=== PATIENT | female | born 2000 | race Caucasian/White ===

== ENCOUNTER 2021-09-27 08:29 | Emergency (ER) | payer OTHER ==
--- OUTSIDE RECORDS SUMMARY | 2021-09-27 08:33 | XMS REPORT | Continuity of Care Document ---
:2000 Author Organization [facility] t Address [address] [place] [address] Care Team Providers Name Role Phone MARIAM Attending Clinician Unavailable HAYDEN Attending Clinician Unavailable JONATAN RIVERA Attending Clinician Unavailable SAVANNA Attending Clinician Unavailable PEDIATRIC Attending Clinician Unavailable Payers Payer Name Policy Type Policy Number Effective Date Expiration Date S ource Problems Condition Condition Condition Status Onset Resolution Last Treating Co mments Source Name Details Category Date Date Treatment Clinician Date Chronic Chronic Problem Active Univers abdominal abdominal HL7.CCDAR2 ity of pain pain [place] [facility] ans Chronic Chronic Problem Active Univers constipati constipati HL7.CCDAR2 ity of on on [place] [facility] Abdominal Abdominal Problem Active Uni vers pain pain HL7.CCDAR2 ity of [place] [facility] ans Nausea Nausea Problem Active Univers and/or and/or HL7.CCDAR2 ity of vomiting vomiting [place] [facility] Renal Renal Problem Active Univers cyst, left cyst, left HL7.CCDAR2 ity of [place] [facility] ans Recurrent Recurrent Problem Active Uni vers UTI UTI HL7.CCDAR2 ity of [place] [facility] Small Small Problem Active Univers intestinal intestinal HL7.CCDAR2 [place] bacterial bacterial [place] overgrowth overgrowth Ph ysici ans Abdominal Abdominal Problem Active Uni vers bloating bloating HL7.CCDAR2 it y of [place] [facility] ans Diarrhea Diarrhea Problem Active Unive rs HL7.CCDAR2 ity of [place] [facility] ans Vomiting Vomiting Problem Active Unive rs blood blood HL7.CCDAR2 ity of [place] [facility] ans History of History of Problem Resolve Univers headache headache HL7.CCDAR2 d it y of [place] [facility] ans History of History of Problem Resolve Univers History of History of HL7.CCDAR2 d [place] placement [place] of ear of ear Physici tubes tubes ans Knee pain Knee pain Problem Active Uni vers HL7.CCDAR2 ity of [place] [facility] ans Headache Headache Problem Active Unive rs HL7.CCDAR2 ity of [place] [facility] ans Abnormal Abnormal Problem Active Unive rs weight weight HL7.CCDAR2 ity of loss loss [place] [facility] ans Constipati Constipati Problem Active U nivers on on HL7.CCDAR2 ity of [place] [facility] ans Dysphagia Dysphagia Problem Active Uni vers HL7.CCDAR2 ity of [place] [facility] ans Vomiting Vomiting Problem Active Unive rs HL7.CCDAR2 ity of [place] [facility] ans Allergies, Adverse Reactions, Alerts Allergy Allergy Status Severity Reaction(s) Onset Inactive Treating Comm ents Source Name Type Date Date Clinician Penicill DA Active MO 2017-11 [facility] ins 1-19 Clear 00:00: Morse 00 [facility] Cephalos DA Active MO 2017-11 [facility] porins -19 Clear 00:00: Morse 00 [facility] Sulfa DA Active MO 2017- [facility] (Sulfona -19 Clear mide 00:00: Morse Antibiot 00 [facility] Cephalos drug Active Univers porins allergy ity of [place] [facility] ans Penicill drug Active Univers ins allergy [facility] [place] [facility] sulfa drug Active Univers allergy [facility] of [place] [facility] Sulfa drug Active Univers Drugs allergy ity of [place] [facility] ans Family History Family Member Diagnosis Comments Start Date Stop Date Source Unknown Family FH: cholecystectomy Maternal U niversity of Member Relatives [place] [facility] Unknown Family FH: HTN Family History Univer sity of Member (hypertension) [place] [facility] Unknown Family Family history of Family History University of Member Elevated cholesterol [place] [facility] [place] Family Family history of Family History University of Member obesity [place] [facility] Unknown Family FH: migraines Family History Uni versity of Member [place] [facility] Unknown Family Family history of Family History University of Member mental disorder [place] [facility] Unknown Family Family history of Family History University of Member diabetes mellitus [place] [facility] Grandmother Family history of Univer sity of irritable bowel [place] syndrome Physicians aunt Family history of Univers ity of irritable bowel [place] syndrome Physicians Mother FH: cholecystectomy Unive rsity of [place] [facility] Sister Family history of GI Univ ersity of symptoms [place] [facility] Social History Smoking Status Start Date Stop Date Source Never smoker [facility] emeterio Physicians Medications Ordered Filled Start Stop Current Ordering Indication Dosage Frequency Signature Comments Components Source Medication Medication Date Date Medication? Clinician (SIG) Name Name Dicyclomine Dicyclomine Yes BLAIR BECERRA Q6H TAKE 1 Univers HCl - 20 MG HCl - 20 MG 1-30 MD TABLET ity of Oral Tablet Oral Tablet 00:00: EVERY 6 [place] 00 HOURS Physici NEEDED. ans Scopolamine Scopolamine Yes CRISTONIEL APPLY 1 Univers 1 MG/3DAYS 1 MG/3DAYS 1-30 ABRENICA PATCH ity of Transdermal Transdermal 00:00: M.D. EVERY 3 [place] Patch 72 Patch 72 00 DAYS Physici Hour Hour ans Polyethylen Polyethylen 2016-11 Yes CANDY QD MIX 1 Univers e Glycol e Glycol 2-12 HAYDEN CAPFUL ity of 3350 Oral 3350 Oral 00:00: M.D. (17GM) IN [place] Powder Powder 00 8 [place] Physici OF WATER, ans JUICE, OR TEA AND DRINK DAILY. Ondansetron Ondansetron 2016-11 Yes BLAIR BECERRA Allow 1 Univers 8 MG Oral 8 MG Oral 2-12 MD tablet to ity of Tablet Tablet 00:00: dissolve [place] Disintegrat Disintegrat 00 in mouth Physici ing ing q12 hours ans prn nausea/ vomiting. Pantoprazol Pantoprazol 2016-11 Yes BLAIR BECERRA 1 QD Take 1 Univers e Sodium 40 e Sodium 40 2-12 MD tablet po ity of MG Oral MG Oral 00:00: twice [place] Tablet Tablet 00 daily Physici Delayed Delayed ans Release Release Vital Signs Vital Name Observation Time Observation Value Comments Source BP Systolic 2018-07-31 114 mm[Hg] University 13:27:00 [place] [facility] s BP Diastolic 2018-07-31 79 mm[Hg] [facility] 13:27:00 [place] [facility] Height 2018-07-31 161.5 cm [facility] 13:27:00 [place] [facility] s Weight 2018-07-31 95.4 kg University 13:27:00 [place] [facility] Body Mass Index 2018-07-31 36.58 kg/m2 University o f Calculated 13:27:00 [place] [facility] s Temperature 2018-07-31 97.1 [degF] University 13:27:00 [place] [facility] Heart Rate 2018-07-31 67 /min University of ::00 [place] [facility] s BP Systolic 2018-03-15 115 mm[Hg] Location: [facility]; [facility] :: Position: [place] [facility] Sitting BP Diastolic 2018-03-15 78 mm[Hg] Location: [facility]; [facility] :: Position: [place] [facility] s Sitting Height 2018-03-15 164.8 cm University of :: [place] [facility] s Weight 2018-03-15 91.2 kg University of :: [place] [facility] s Body Mass Index 2018-03-15 33.58 kg/m2 University o f Calculated ::00 [place] [facility] s Temperature 2018-03-15 97.8 [degF] Method: [facility] :: Tympanic [place] [facility] s Heart Rate 2018-03-15 71 /min [facility] :: [place] [facility] s BP Systolic 2017-12-19 116 mm[Hg] Location: [facility]; [facility] :: Position: [place] [facility] s Sitting BP Diastolic 2017-12-19 77 mm[Hg] Location: [facility]; [facility] :: Position: [place] [facility] s Sitting Height 2017-12-19 64.09 [in_us] University of 11::00 [place] [facility] Weight 2017-12-19 191.80 [lb_av] University of :: [place] [facility] Body Mass Index 2017-12-19 32.83 kg/m2 University o f Calculated 11:15:00 [place] [facility] Heart Rate 2017-12-19 78 /min University of :: [place] [facility] BP Systolic 2017-12-12 109 mm[Hg] Location: [facility]; [facility] :: Position: [place] [facility] s Sitting BP Diastolic 2017-12-12 78 mm[Hg] Location: [facility]; [facility] :: Position: [place] [facility] s Sitting Height 2017-12-12 164 cm University of :: [place] [facility] s Weight 2017-12-12 86.4 kg University of :33: [place] [facility] Body Mass Index 2017-12-12 32.12 kg/m2 University o f Calculated :33:00 [place] [facility] Heart Rate 2017-12-12 76 /min [facility] :33: [place] [facility] Temperature 2017-12-12 98.1 [degF] Method: [place] [address]:33:00 Tympanic [place] [facility] Procedures Procedure Date / Time Performing Clinician Source Performed [QLH] CLOSTRIDIUM 2018-07-31 00:00:00 [facility] DIFFICILE TOXIN A AND B, Physici ans EIA [QLH] CULTURE, STOOL 2018-07-31 00:00:00 [facility] (CAMPYLOBACTER, Physicians SALMONELLA/SHIGELLA) [QLH] CRYPTOSPORIDIUM AG, 2018-07-31 00:00:00 [facility] [place] [facility] Physicians [QLH] OVA AND PARASITES, 2018-07-31 00:00:00 Uni versity of [place] STOOL CONC/PERM SMEAR, 3 Physici ans SPEC US Abdomen complete with 2018-07-31 00:00:00 [facility] [place] [address] Physicians [QL] CALPROTECTIN, STOOL 2018-03-15 00:00:00 [facility] [QLH] OVA AND PARASITES, 2018-03-15 00:00:00 Uni versity of [place] STOOL CONC/PERM SMEAR, 3 Physici ans SPEC MRI Brain w/wo contrast 2018-03-15 00:00:00 [facility] [address] Physicians [QL] CALPROTECTIN, STOOL 2017-12-12 00:00:00 [facility] [QLH] OVA AND PARASITES, 2017-12-12 00:00:00 Uni versity of [place] STOOL CONC/PERM SMEAR, 3 Physici ans SPEC MRI Brain w/wo contrast 2017-11-14 00:00:00 [facility] [address] Physicians ECG-12 Lead 2017-10-24 00:00:00 [facility] Physicians [QLH] OVA AND PARASITES, 2017-10-24 00:00:00 Uni versity of [place] STOOL CONC/PERM SMEAR, 3 Physici ans SPEC [QL] CALPROTECTIN, STOOL 2017-10-24 00:00:00 [facility] [place] Physicians Renal [id number] 2017-10-24 00:00:00 University o f [place] Physicians History of Ear pressure [facility] equalization tube Physicians insertion Encounters Start End Encounter Admission Attending Care Care Encounter Source Date/Time Date/Time Type Type Clinicians Facility Department ID 2021-05-17 2021-05-17 Emergency E [facility]SE [facility] [id number] MH 21:39:00 21[facility]39[facility] [facility] 2021-05-13 2021-05-13 Emergency E MHSE [facility]SE [id number] MH 08:18:00 08:18:[address] [facility] [address] [facility] 2021-02-02 2021-02-02 Emergency E MHSE [facility]SE [id number] 12:07:00 12:07:[address] [facility] 2018-07-31 2018-07-31 Appointmen BLAIR BECERRA UTP Pedi [id number] Univers 01:00:00 01:00:00 t; MD MARIAM Gastroenter i ty of MD BLAIR [facility] Physici ans 2018-06-28 2018-06-28 Appointmen THOM BLAKE [id number] Univers 13:20:00 13:20:00 t; AUGUSTIN BLAKE M.D. ity of [place], [place] M.D. Physici ans 2018-05-15 2018-05-15 Appointmen JONATAN [facility] [id number] Univers 09:40:00 09:40:00 t; daniel [place] MELISSA, [place] MELISSA, M.D. Physici M.D. ans 2018-03-15 2018-03-15 Appointmen JONATAN Murryi [id number] Univers 09:40:00 09:40:00 t; JONATAN RIVERA Gastroenter i ty of TIMOTHY RIVERA olJewel Moore M.D. ans 2018-02-28 2018-02-28 Appointmen THOM CORRALES [facility] [id number] Univers 10:30:00 10:30:00 t; SHERRY CORRALES ity of [place], M.D. [place] M.D. Physici ans 2017-12-19 2017-12-19 Appointmen PEDIATRIC, [facility] Pedi [id number] Univers 10:30:00 10:30:00 t; FELLOW Nephrology daniel of PEDIATRIC, & [place] FELLOW Hypertensio Phys ici n ans 2017-12-12 2017-12-12 Appointmen [facility] THOM Pedi [id number] Univers 09:40:00 09:40:00 t; JONATAN RIVERA Gastroenter i ty of ARSDATIMOTHY LIVE ology [place] Jewel AGUIRRE M.D. ans 2017-10-24 2017-10-24 Andreina SCHILLING [id number] Univers 10:00:00 10:00:00 t; daniel [place] MELISSA [place] Jewel AGUIRRE M.D. ans Results Test Description Test Time Test Comments Results Result Comments Source SURGICAL SPECIMENS 2018-10-09 09:12:00 RUN DATE: 10/09/18 [facility] *LIVE* PAGE 1 RUN TIME: 911 Specimen Inquiry RUN USER: INTERFACE PATIENT: KAYY ORELLANA LOC: EULOGIO U #: [id number] AGE/SX: 18/F ROOM: RE10/02/18REG DR: Fede Lieberman MD : 00 BED: DIS: STATUS: DEP [facility] TLOC: SPEC #: [id number] RECD: 10/02/18 STATUS: NOEMY ART #: [id number] EVELIO: 10/02/[address] [facility] [address]: Fede Lieberman MD ENTERED: 10/06/18 SP TYPE: SURG SPEC OTHR DR: Osmar Portillo DO ORDERED: GM LEVEL 4 CODES: [id number] - STOMACH, NOS [id number] - SMALL INTESTINE [place]: [place] [address] [place] [address] [email or web address] Fede Lieberman MD [address] [place], [place] [address] [address] [place] [address] PROCEDURES: GM LEVEL 4 (Incomplete) TISSUES: 1. SMALL INTESTINE, NOS - Small intestine, duodenum, bx. 2. STOMACH, NOS - Stomach, antrum ,bx. FINAL DIAGNOSIS Small intestine, duodenum, bx.: Intact villous architecture, no evidence of celiac sprue. Stomach, antrum, bx.: Mild chronic gastritis, no Helicobacter organisms identified. GROSS AND MICROSCOPIC GROSS EXAMINATION: Received in formalin labeled duodenum biopsy are 3 friedman tissue fragments measuring up to 0.3 cm submitted in one cassette (A). Received in formalin labeled antrum biopsy are 3 friedman tissue fragments measuring up to 0.3 cm (B). MICROSCOPIC EXAMINATION: Sections of the duodenum reveal intact villous architecture. The lamina propria contains a mild chronic inflammatory infiltrate. Sections of the gastric biopsy show changes of mild chronic gastritis. The CONTINUED ON NEXT PAGE RUN DATE: 10/09/18 [facility] *LIVE* PAGE 2 RUN TIME: 911 Specimen Inquiry RUN USER: INTERFACE SPEC #: [id number] PATIENT: KAYY ORELLANA #[id number] (Continued)--------- --- GROSS AND MICROSCOPIC (Continued) lamina propria contains a mild inflammatory infiltrate. The Alcian blue/PAS stain does not show goblet cell metaplasia. The immunostain for Helicobacter organisms is negative. (When special stains have been reviewed, the appropriate positive/negative controls have been reviewed and are appropriately positive/negative). POST-OP DIAGNOSIS EGD-hiatal hernia PRE-OP DIAGNOSIS Blood in stool, GERD Signed SIGNATURE ON FILE Dom Cloes DO 10/09/1812 END OF REPORT [[facility]] CBC (INCLUDES DIFF/PLT) 2018-07-31 15:19:01 Test Item Value Reference Range Interpretation Comme nts WBC (test code = 6690-2) 9.2 {K/CMM} 3.7-10.4 RBC (test code = 789-8) 4.77 {M/CMM} 4.20-5.40 Hgb (test code = 718-7) 14.2 g/dl 12.0-16.0 Hct (test code = 15323-9) 42.3 % 36.0-48.0 MCV (test code = 787-2) 88.6 fL 80.0-98.0 MCH (test code = 785-6) 29.7 pg 27.0-31.0 MCHC (test code = 786-4) 33.5 g/dl 32.0-36.0 RDW (test code = 788-0) 13.3 % 11.5-14.5 Platelet (test code = 79478-3) 233 {K/CMM} 133-450 Mean Platelet Volume (test code = 13490-8) 9.7 fL 7.4-10.4 [facility] Physicians[[facility]] CMP [id number] 15:19:01 Test Item Value Reference Range Interpretation Comments Sodium Level 139 {mEq/l} 135-145 (test code = 2951-2) Potassium Level 4.0 {mEq/l} 3.5-5.1 (test code = 2823-3) Chloride Level 109 {mEq/l} 95-109 (test code = 2075-0) Carbon Dioxide; 19 {mEq/l} 24-32 Below Low Threshold (test code = 8-9) AGAP (test code = 15.0 {mEq/l} 10.0-20.0 23063-8) Glucose Lvl (test 84 mg/dl 70-99 Adult refe rence range code = 2345-7) values reflec t the clinical guidel inesof the [place] Diabet es Association. Creatinine Lvl 0.60 mg/dl 0.50-1.40 (test code = 2160-0) Blood Urea 10 mg/dl 7-22 Nitrogen (test code = 3094-0) BUN/Creatinine 17 6-25 Ratio (test code = 3097-3) Total Protein; 8.5 g/dl 6.4-8.4 Above High Threshold (test code = 2885-2) Albumin Lvl (test 3.9 g/dl 3.5-5.0 code = 1751-7) Globulin; Above 4.6 g/dl 2.7-4.2 High Threshold (test code = 53456-6) A/G Ratio (test 0.8 0.7-1.6 code = 1759-0) Calcium Level 9.3 mg/dl 8.5-10.5 Total (test code = 03222-0) ALT; Above High 70 u/l 0-65 Threshold (test code = 1743-4) AST (test code = 28 u/l 0-37 73240-5) Alk Phos; Above 145 u/l 39-136 High Threshold (test code = 1783-0) Bili Total (test 0.8 mg/dl 0.2-1.3 code = 1974-) eGFR (test code = 134 The eGFR i s calculated 05028-4) {ML/MIN/1.7} using the CKD-E PI formula. In mos t young, healthyindividu als the eGFR will be >9 0 mL/min/1.73m2. The eGFR declines with a ge. AneGFR of 60-89 may be normal in some population s, particularly th e elderly, forwhom the CKD -EPI formula has not been extensively vikas idated. Use of the eGFR isnot recommended in the following populations:Ind ividuals with unstable c reatinine concentrations, including patient s and those with seri ous co-morbid conditions.Maggie ents with extremes in mus kari mass or diet.The brigido a above are obtained fr om the National Kidney Disease Education Progr am(NKDEP) which lena andersen recommends that when the eGFR is used in patientswith ex tremes of body mass index for purposes of sepideh g dosing, the eGFR should be multiplied by t he estimated BMI. [facility]] [id number] 15:19:01 Test Item Value Reference Range Interpretation Comments Segmented Neutrophils (test code 63.3 % 45.0-75.0 = 69904-1) Monocytes (test code = 20701-4) 7.6 % 2.0-12.0 Lymphocytes (test code = 12687-5) 27.4 % 20.0-40.0 Eosinophils (test code = 69547-1) 1.2 % 0.0-4.0 Basophils (test code = 706-2) 0.5 % 0.0-1.0 Segs-Bands # (test code = 5.8 {K/CMM} 1.5-8.1 68250-3) Lymphocytes # (test code = 2.5 {K/CMM} 1.0-5.5 53874-8) Monocytes # (test code = 66538-0) 0.7 {K/CMM} 0.0-0.8 Eosinophils # (test code = 0.1 {K/CMM} 0.0-0.5 97498-0) [facility][O] Urine Dipstick (In Office)2017-12-19 11:53:00 Test Item Value Reference Range Interpretation Comments LEUKOCYTES (test code = LEUKOCYTES) neg N NITRITE; Normal (test code = 43687-3) neg N UROBILINOGEN; Normal (test code = 1.0 N 94384-5) PROTEIN; Normal (test code = 50792-4) neg N pH (test code = pH) 7.0 N URINE BLOOD; Normal (test code = neg N 99283-8) SPECIFIC GRAVITY; Normal (test code = 1.020 N 2965-2) KETONES; Normal (test code = 89875-6) neg N BILIRUBIN; Normal (test code = 96842-3) neg N GLUCOSE; Normal (test code = 1547-9) neg N [facility] PhysiciansTobacco Use [id number] 15:40:00 Test Item Value Reference Range Interpretation Comments Completed (test code = Completed) DONE [facility] Physicians
[2021-09-27 09:04] LABS: Urine Blood Negative (Negative); Urine Glucose Negative (Negative); Urine Protein Negative (Negative); Urine Specific Gravity 1.025 (1.005-1.030)
[2021-09-27 09:31] LABS: Absolute Lymphocytes (CBC) 2.1 K/uL (0.7-4.9); Basophils % 0.5 % (0-1.3); Hematocrit 39.6 % (36.0-45.0); Lymphocytes % 21.8 % (15.3-44.8); RBC Red Blood Cell Count 4.49 M/uL (3.86-4.86)
--- NOTE | 2021-09-27 09:38 | RAD REPORT ---
EXAM DESCRIPTION: US - Transvaginal OB - 09/27/2021 9:25 am CLINICAL HISTORY: ABD PAIN COMPARISON: No comparisons FINDINGS: Gestational sac identified measuring 10 millimeters. Yolk sac is also seen. No pole or heart tones identified. The right ovary has a volume of 8 cc. The left ovary is volume of 2. 6 cc. Right-sided corpus luteum is present. No free fluid. IMPRESSION: Gestational sac identified which measures 5 week 5 day with estimated date of delivery o f 05/25/2022. No pole or heart tones identified likely due to early dates. Bilateral ovarian bl ood flow.
[2021-09-27 10:11] LABS: BUN Blood Urea Nitrogen 8 mg/dL (7-18); Bicarbonate 24 mmol/L (21-32); Glucose Level 89 mg/dL (74-106); HCG, Quantitative 7575 mIU/mL (1-3); Sodium Level 138 mmol/L (136-145)
[2021-09-27 10:13] LABS: Potassium 3.9 mmol/L (3.5-5.1)
[2021-09-27 10:14] LABS: Urine Specific Gravity/Preg 1.025 (1.005-1.030)
--- NOTE | 2021-09-27 10:16 | ER ---
Nurse's Notes [facility] Name: Janneth Issa Age: 21 yrs Sex: Female : 2000 Arrival Date: 09/27/2021 Time: 08:30 Bed 5 Private MD: Diagnosis: Lower abdominal pain, unspecified Presentation: 09/27 08:39 Chief complaint: Patient states: i am having stomach pain that started yesterday. i tw2 started feeling lightheaded yesterday. and this morning i felt like i was going to pass out. i was more worried because i found out i was last week. Coronavirus screen: nausea, Client presents with at least one sign or symptom that may indicate coronavirus-19. Standard/surgical mask placed on the client. Provider contacted for isolation considerations. Ebola Screen: Patient denies travel to an Ebola-affected area in the 21 days before illness onset. Initial Sepsis Screen: Does the patient meet any 2 criteria? No. Patient's initial sepsis screen is negative. Does the patient have a suspected source of infection? No. Patient's initial sepsis screen is negative. Risk Assessment: Do you want to hurt yourself or someone else? Patient reports no desire to harm self or others. Onset of symptoms was September 27, 2021. 08:39 Method Of Arrival: Ambulatory tw2 08:39 Acuity: PIO 3 tw2 Triage Assessment: 08:42 General: Appears in no apparent distress. Behavior is calm, cooperative, appropriate tw2 for age. Pain: Complains of pain in right lower quadrant and left lower quadrant. GI: Reports nausea. 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 - Social history:: Smoking status: Patient denies any tobacco usage or history of. Screenin:01 Abuse screen: Denies threats or abuse. Nutritional screening: No deficits noted. as6 Tuberculosis screening: No symptoms or risk factors identified. Fall Risk None identified. Assessment: 08:59 General: Appears in no apparent distress. comfortable, Behavior is calm, cooperative. as6 Pain: Complains of pain in lower abdomen Quality of pain is described as aching. Neuro: Level of Consciousness is awake, alert, obeys commands, Oriented to person, place, time, situation, Reports dizziness, since yesterday 09/27. Cardiovascular: Capillary refill < 3 seconds Patient's skin is warm and dry. Respiratory: Airway is patent Respiratory effort is even, unlabored, Respiratory pattern is regular, symmetrical. GI: Reports lower abdominal pain. Derm: Skin is intact, is healthy with good turgor. 10:30 Reassessment: discharge teaching provided, pt stable at discharge, verbalized as6 understanding of need for follow up. Vital Signs: 08:39 BP 124 / 82; Pulse 93; Resp 18; Temp 98.3; Pulse Ox 99% on R/A; Weight 109.18 kg (R); tw2 Height 5 ft. 4 in. (162.56 cm); 10:29 BP 100 / 68; Pulse 68; Resp 18 S; Pulse Ox 100% on R/A; as6 08:39 Body Mass Index 41.32 (109.18 kg, 162.56 cm) tw2 ED Course: 08:30 Patient arrived in ED. as 08:38 Corky Baum PA is PHCP. jr8 08:38 Brant Delgadillo MD is Attending Physician. jr8 08:41 Nathan Martínez, POPPY is Primary Nurse. as6 08:41 Triage completed. tw2 08:42 Arm band placed on. tw2 09:01 Patient has correct armband on for positive identification. Bed in low position. Call as6 light in reach. Side rails up X 1. Adult w/ patient. Pulse ox on. NIBP on. Warm blanket given. 09:19 Inserted saline lock: 20 gauge in right hand, using aseptic technique. Blood collected. as6 09:26 US Transvaginal Ob In Process Unspecified. EDMS 10:32 No provider procedures requiring assistance completed. IV discontinued, intact, as6 bleeding controlled, No redness/swelling at site. Pressure dressing applied. Administered Medications: No medications were administered Outcome: 10:15 Discharge ordered by . jr8 10:32 Discharged to home ambulatory, with significant other. as6 10:32 Condition: stable 10:32 Discharge instructions given to patient, significant other, Instructed on discharge instructions, follow up and referral plans. Demonstrated understanding of instructions, follow-up care. 10:33 Patient left the ED. as6 Signatures: Dispatcher [employer] Jud Tirado Josh, PA PA jr8 Ashley Santos RN RN tw2 Nathan Martínez RN RN as6 Corrections: (The following items were deleted from the chart) 08:42 08:41 Home Meds: None; tw2 tw2
--- NOTE | 2021-09-27 10:16 | EDPHYS ---
Physician Documentation [facility] Name: Janneth Issa Age: 21 yrs Sex: Female : 2000 Arrival Date: 09/27/2021 Time: 08:30 Bed 5 Private MD: ED Physician Brant Delgadillo HPI: 09/27 09:07 This 21 yrs old Female presents to ER via Ambulatory with complaints of jr8 Abdominal Pain - 5 wks preg, Dizziness. 09:07 Severity of pain: At its worst the pain was mild in the emergency department the pain jr8 is unchanged. The patient has not experienced similar symptoms in the past. The patient has not recently seen a physician. This is a 21-year-old female A0 L0 that presented to the emergency room with discomfort to the lower abdomen that started last night but intensified this morning. Denies any spotting or bleeding at this time. Denies any urinary symptoms at this time. Patient stated that her last menstrual period was around August 20. Took urinary test at home which showed positive. Patient has not had any previous ultrasound.. 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 - Social history:: Smoking status: Patient denies any tobacco usage or history of. ROS: 09:07 Constitutional: Negative for fever, chills, and weight loss, Cardiovascular: Negative jr8 for chest pain, palpitations, and edema, Respiratory: Negative for shortness of breath, cough, wheezing, and pleuritic chest pain. 09:07 Back: Negative for injury and pain, MS/Extremity: Negative for injury and deformity, Skin: Negative for injury, rash, and discoloration, Neuro: Negative for headache, weakness, numbness, tingling, and seizure. 09:07 Abdomen/GI: Positive for abdominal pain, nausea, Negative for vomiting, diarrhea. 09:07 : Positive for missed period. Exam: 09:07 Constitutional: This is a well developed, well nourished patient who is awake, alert, jr8 and in no acute distress. Cardiovascular: Regular rate and rhythm with a normal S1 and S2. No gallops, murmurs, or rubs. Normal PMI, no JVD. No pulse deficits. Respiratory: Lungs have equal breath sounds bilaterally, clear to auscultation and percussion. No rales, rhonchi or wheezes noted. No increased work of breathing, no retractions or nasal flaring. Back: No spinal tenderness. No costovertebral tenderness. Full range of motion. Skin: Warm, dry with normal turgor. Normal color with no rashes, no lesions, and no evidence of cellulitis. MS/ Extremity: Pulses equal, no cyanosis. Neurovascular intact. Full, normal range of motion. Neuro: Awake and alert, GCS 15, oriented to person, place, time, and situation. Cranial nerves II-XII grossly intact. Motor strength 5/5 in all extremities. Sensory grossly intact. 09:07 Abdomen/GI: Inspection: abdomen appears normal, Bowel sounds: active, all quadrants, Palpation: soft, in all quadrants, mild abdominal tenderness, in the right lower quadrant and left lower quadrant, mass, is not appreciated, rebound tenderness, is not appreciated, voluntary guarding, is not appreciated, involuntary guarding, is not appreciated, no appreciated organomegaly, Indicators: McBurney's point is not tender, Falk's sign is negative, Rovsing's sign is negative, Liver: tenderness, is not appreciated. Vital Signs: 08:39 BP 124 / 82; Pulse 93; Resp 18; Temp 98.3; Pulse Ox 99% on R/A; Weight 109.18 kg (R); tw2 Height 5 ft. 4 in. (162.56 cm); 10:29 BP 100 / 68; Pulse 68; Resp 18 S; Pulse Ox 100% on R/A; as6 08:39 Body Mass Index 41.32 (109.18 kg, 162.56 cm) tw2 MDM: 08:43 Patient medically screened. jr8 09:50 Data reviewed: vital signs, nurses notes, lab test result(s), radiologic studies, jr8 ultrasound. Data interpreted: Pulse oximetry: on room air is 99 %. Interpretation: normal. Counseling: I had a detailed discussion with the patient and/or guardian regarding: the historical points, exam findings, and any diagnostic results supporting the discharge/admit diagnosis, lab results, radiology results, the need for outpatient follow up, an OB/Gyne specialist, to return to the emergency department if symptoms worsen or persist or if there are any questions or concerns that arise at home. 09:50 Differential diagnosis: diverticulitis, Ectopic , non-specific abd pain, jr8 Ovarian Torsion, Pelvic Inflammatory Disease, Pyelonephritis, Tubal Ovarian Abcess, Ureterolithiasis, urinary tract infection, appendicitis, IUP, spontaneous . 10:22 ED course: Discussed with patient that her ultrasound and blood work were stable. jr8 Patient measures 5 weeks 5 days but with no pole. Most likely early gestation in nature. Cannot fully rule out if she were to be in the early stages of miscarry or not but that all things otherwise are stable and appropriate at this time. That she needs to follow-up in the next few days with her COLOR STRIPPER. If she were to start have spotting or bleeding to come back for reevaluation. Patient good with this at this time.. 09/27 08:51 Order name: Basic Metabolic Panel; Complete Time: 10:15 jr8 09/27 08:51 Order name: CBC with Diff; Complete Time: 09:36 jr8 09/27 08:51 Order name: Quantitative Hcg; Complete Time: 10:15 jr8 09/27 08:51 Order name: US Transvaginal Ob; Complete Time: 09:39 jr8 09/27 09:04 Order name: Urine Dipstick-Ancillary EDMI 09/27 09:08 Order name: Urine --Ancillary (enter results); Complete Time: 10:15 bd 09/27 08:51 Order name: IV Saline Lock; Complete Time: 09:19 jr8 09/27 08:51 Order name: Labs collected and sent; Complete Time: 09:19 jr8 09/27 08:51 Order name: NPO; Complete Time: 09:03 jr8 09/27 08:51 Order name: Urine Dipstick-Ancillary (obtain specimen); Complete Time: 09:03 jr8 09/27 08:51 Order name: Urine Test (obtain specimen); Complete Time: 09:03 jr8 Administered Medications: No medications were administered Disposition: 11:06 Co-signature as Attending Physician, Brant Delgadillo MD I agree with the assessment and rn plan of care. Attestation: The patient's history, exam findings, diagnostics, and a summary of any interventions or procedures was reviewed in detail with Corky CASTLE. Disposition Summary: 09/27/21 10:15 Discharge Ordered Location: Home jr Problem: new jr8 Symptoms: have improved jr8 Condition: Stable jr8 Diagnosis - Lower abdominal pain, unspecified jr8 Followup: jr8 - With: Private Physician - When: 2 - 3 days - Reason: Recheck today's complaints, Continuance of care, Re-evaluation by your physician Discharge Instructions: - Discharge Summary Sheet jr8 - Abdominal Pain During jr8 Forms: - Medication Reconciliation Form jr8 - Thank You Letter jr8 - Antibiotic Education jr8 - Prescription Opioid Use jr8 - Work release form as6 Signatures: Dispatcher [employer] EDMS Brant Delgadillo MD MD rn Roszak, Josh, PA PA jr8 Ashley Santos RN RN tw2 Corrections: (The following items were deleted from the chart) 08:42 08:41 Home Meds: None; tw2 tw2
== END 2021-09-27 10:33 | disposition home or self-care (01) ==
LOC: ER 08:29
DX: O26.891 Other specified pregnancy related conditions, first trimester (principal); Z3A.01 Less than 8 weeks gestation of pregnancy; Z88.0 Allergy status to penicillin; Z88.2 Allergy status to sulfonamides
CPT/HCPCS: 36415; 76817; 80048; 81003; 81025; 84702; 85025; 99284

== ENCOUNTER 2023-03-14 01:18 | Emergency (ER) | payer OTHER ==
--- OUTSIDE RECORDS SUMMARY | 2023-03-14 01:30 | XMS REPORT | Continuity of Care Document ---
:2000 Author Organization [facility] t Address [address] [facility] [place] [address] Care Team Providers Name Role Phone PCP, PATIENT DOES NOT HAVE A Primary Care Physician UnavailSTEF Land Attending Clinician Unavailable Vilma London MD Attending Clinician VILMA LONDON Attending Clinician Unavailable Kanu Jenkins Attending Clinician KANU JENKINS Attending Clinician Unavailable KANU JENKINS Attending Clinician Unavailable Amita Galvez Attending Clinician AMITA GALVEZ Attending Clinician Unavailable Vicente Roberts Attending Clinician VICENTE ROBERTS Attending Clinician Unavailable Deandre Robles Attending Clinician DEANDRE ROBLES Attending Clinician Unavailable Telma Lai Attending Clinician [phone] TELMA LAI Attending Clinician Unavailable Lolis West Attending Clinician LOLIS WEST Attending Clinician Unavailable [place] Attending Clinician SOUTH [place] Attending Clinician Unavailable Juan Vizcaino Attending Clinician JUAN VIZCAINO Attending Clinician Unavailable Knig Hope Attending Clinician Wanda Matias Attending Clinician Unavailable BLAIR BECERRA MD Attending Clinician Unavailable AUGUSTIN BLAKE M.D. Attending Clinician Unavailable WANDA MATIAS M.D. Attending Clinician Unavailable SHERRY GUNN M.D. Attending Clinician Unavailable PEDIATRIC, FELLOW Attending Clinician Unavailable Fahad Hood Attending Clinician Latonya Bennett Attending Clinician Catarino South Attending Clinician Freddie Arenas Attending Clinician [phone] Grace Sharp Attending Clinician STEF MUÑOZ Admitting Clinician Unavailable VILMA LONDON Admitting Clinician Unavailable Stef Muñoz Admitting Clinician Hilaria Gunn Admitting Clinician Payers Payer Name Policy Type Policy Number Effective Date Expiration Date [facility] [id number] 2017 00:00:00 2017 00: 00:00 Problems Condition Condition Condition Status Onset Resolution Last Treating Co mments Source Name Details Category Date Date Treatment Clinician Date CONTRACTIO CONTRACTI Diagnosis Active 2022-05-27 Memoria NS ONS Active 05-27 14:20:00 l 05/27/2022 00:00: Bartolome BLANDON [address] LOF/CTXS LOF/CTXS Diagnosis Active 2022-05-25 Memoria Active 05-25 12:56:00 l 05/25/2022 00:00: Bartolome paul [address] CRAMPING/B Diagnosis Active 2022-05-19 Memoria LURRED CRAMPING/B 05-19 18:25:00 l VISION LURRED 00:00: Willie VISION 00 Active 05/19/2022 [facility] CONTRACTIN CONTRACTI Diagnosis Active 2022-05-06 Memoria G NG Active 05-05 03:42:00 l 05/05/2022 00:00: Bartolome paul [address] CHILDBIRTH CHILDBIRT Diagnosis Active 2022-05-15 Memoria H Active 03-08 08:47:00 l 03/08/2022 23:25: Bartolome paul [address] / Diagnosis Active 2020-112021-10-28 Memoria NAUSEA / 12-29 13:31:00 l NAUSEA 00:00: Lorida Active 00 10/28/2021 [facility] Willie ABDOMINAL ABDOMINAL Diagnosis Active 2021-05-17 Memoria PAIN PAIN 05-17 21:45:00 l Active 00:00: Lorida 05/17/2021 00 [facility] [place] PUI PUI Diagnosis Active 2021-05-13 Mem oria Active 05-13 08:45:00 l 05/13/2021 00:00: Bartolome paul 00 [place] VOMITING VOMITING Diagnosis Active 2021-02-02 Memoria Active 02-02 13:30:00 l 02/02/2021 00:00: Bartolome paul 00 [place] ABD ABD Diagnosis Active 2017-112018-09-24 Mem oria PAIN/RECTA PAIN/RECTA 11-24 18:33:00 l L AND L AND 00:00: Lorida VAGINAL VAGINAL 00 BLEEDING BLEEDING Active 09/24/2018 [facility] R10.9 - R10.9 - Diagnosis Active 2016-112017-10-27 Memoria UNSPECIFIE UNSPECIFIE - 13:14:00 l D D 00:01: Lorida ABDOMINAL ABDOMINAL 00 PAIN PAIN Active 10/25/2017 [facility] HEADACHE HEADACHE Diagnosis Active 2015-02-18 Memoria Active 02-18 21:00:00 l 02/18/2015 00:00: Bartolome paul 00 [place] RT KNEE RT KNEE Diagnosis Active 2015-2014-12-08 Memoria DISLOCATIO DISLOCATIO 12-08 19:41:00 l N N Active 00:00: Willie 12/08/2014 00 [facility] Hemorrhage Hemorrhag Problem 2019-04-13 Memoria of anus e of anus 12:24:45 l and rectum and rectum He rmann 04/13/2019 [facility] Abnormal Abnormal Problem 2019-04-13 Memoria uterine uterine 12:24:45 l and and Lorida vaginal vaginal bleeding, bleeding, unspecifie unspecifie d d 04/13/2019 [facility] Fever, Fever, Problem 2019-04-13 Leonid indigo unspecifie unspecifie 12:24:45 l d d Lorida 04/13/2019 [facility] Headache Headache Problem 2019-04-13 Memoria 04/13/2019 12:24:45 l [facility] Generalize Generaliz Problem 2019-04-13 Memoria d ed 12:24:45 l abdominal abdominal Herm sina pain pain 04/13/2019 [facility] Dysuria Dysuria Problem 2019-04-13 Me moria 04/13/2019 12:24:45 l [facility] Hematuria, Hematuria Problem 2019-04-13 Memoria unspecifie , 12:24:45 l d unspecifie Bartolome n d 04/13/2019 [facility] Weakness Weakness Problem 2019-04-13 Memoria 04/13/2019 12:24:45 l [facility] Constipati Constipat Problem 2019-04-13 Memoria on, ion, 12:24:45 l unspecifie unspecifie He rmann d d 04/13/2019 [facility] Other Other Problem 2019-04-13 Memor ia fatigue fatigue 12:24:45 l 04/13/2019 Bartolome paul [facility] 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 2019-04-13 Memoria (current) (current) 12:24:45 l use of use of Lorida hormonal hormonal contracept contracept bertrand bertrand 04/13/2019 [facility] Cyst of Cyst of Problem 2019-02-20 Sd moria kidney, kidney, 14:09:15 l acquired acquired Bartolome n 02/20/2019 [facility] Chlamydial Chlamydia Problem Resolve 2022-06-01 Memoria infection l d 22:47:44 l (disorder) infection Her roberts (disorder) Resolved Problem 06/01/2022 [facility] Vomiting Vomiting Problem Active 2022-06-01 Memoria (disorder) (disorder) 22:47:44 l Active Lorida Problem 06/01/2022 [facility], [place],Jim Oh [facility] ACL SPRAIN ACL Diagnosis Active 2015-01-29 Memoria SPRAIN 08:15:00 l Active [facility] KNEE PAIN KNEE PAIN Diagnosis Active 2015-06-25 Memoria Active 17:12:00 l [facility] History of History of Problem Resolve [place] headache headache HL7.CCDAR2 d Ph ysici ans History of History of Problem Resolve [place] History of History of HL7.CCDAR2 d Physici placement placement ans of ear of ear tubes tubes Knee pain Knee pain Problem Active UT HL7.CCDAR2 Physic i ans Headache Headache Problem Active UT HL7.CCDAR2 Physic i ans Abnormal Abnormal Problem Active UT weight weight HL7.CCDAR2 Physic i loss loss ans Constipati Constipati Problem Active U T on on HL7.CCDAR2 Physic i ans Dysphagia Dysphagia Problem Active UT HL7.CCDAR2 Physic i ans Chronic Chronic Problem Active UT abdominal abdominal HL7.CCDAR2 Physici pain pain ans Chronic Chronic Problem Active UT constipati constipati HL7.CCDAR2 Physici on on ans Abdominal Abdominal Problem Active [place] pain pain HL7.CCDAR2 Physic i ans Nausea Nausea Problem Active UT and/or and/or HL7.CCDAR2 Physic i vomiting vomiting ans Renal Renal Problem Active UT cyst, left cyst, left HL7.CCDAR2 Physici ans Recurrent Recurrent Problem Active UT UTI UTI HL7.CCDAR2 Physic i ans Small Small Problem Active UT intestinal intestinal HL7.CCDAR2 Physici bacterial bacterial ans overgrowth overgrowth Abdominal Abdominal Problem Active UT bloating bloating HL7.CCDAR2 Ph ysici ans Diarrhea Diarrhea Problem Active UT HL7.CCDAR2 Physic i ans Vomiting Vomiting Problem Active UT blood blood HL7.CCDAR2 Physic i ans Patient Patient Problem Resolve 2020-112022-06-01 2022-06-01 Memoria currently currently d 0-08 22:47:44 22:47:44 l 00:00: Bartolome paul (finding) (finding) 00 Resolved 08/20/2021 Problem 06/01/2022 [facility] History of Past Illness Condition Condition Condition Status Onset Resolution Last Treating Co mments Source Name Details Category Date Date Treatment Clinician Date Problem 2022-05-27 2022-05-27 Memoria state, [facility], 05-25 22:59:43 22:59:43 l incidental incidental 19:10: He rmann 05/25/2022 00 [facility] Mild Mild Problem 2020-112021-10-30 2021-10-30 M emoria hyperemesi hyperemesi 12-29 23:38:31 23:38:31 l s s 21:21: Willie gravidarum gravidarum 00 10/28/2021 [facility] Acute Acute Problem 2021-05-20 2021-05-20 M emoria pharyngiti pharyngiti 05-18 21:02:18 21:02:18 l s, s, 17:00: Lorida unspecifie unspecifie 00 d d 05/18/2021 [facility] Urinary Urinary Problem 2021-05-20 2021-05-20 Memoria tract tract 05-18 21:02:18 21:02:18 l infection, infection, 17:00: He rmann site not site not 00 specified specified 05/18/2021 05/20/2021 [facility] Lower Lower Problem 2021-05-20 2021-05-20 M emoria abdominal abdominal 05-18 21:02:18 21:02:18 l pain, pain, 17:00: Lorida unspecifie unspecifie 00 d d 05/18/2021 05/20/2021 [facility] Nausea Nausea Problem 2021-05-20 2021-05-20 Memoria with with 05-18 21:02:18 21:02:18 l vomiting, vomiting, 17:00: Herm sina unspecifie unspecifie 00 d d 05/18/2021 05/20/2021 [facility] Acute Acute Problem 2021-05-15 2021-05-15 M emoria tonsilliti tonsilliti 05-13 21:23:30 21:23:30 l s, s, 17:00: Willie unspecifie unspecifie 00 d d 05/13/2021 05/15/2021 [facility] Unspecifie Unspecifi Problem 2021-02-08 2021-02-08 Memoria d ed 02-02 07:26:20 07:26:20 l abdominal abdominal 17:00: Herm sina pain pain 02/02/2021 02/08/2021 [facility] Hematemesi Hematemes Problem 2017-112019-04-13 2019-04-13 Memoria s is 11-29 12:24:45 12:24:45 l 09/29/2018 04:24: Bartolome n 04/13/2019 48 [facility] Vomiting, Vomiting, Problem 2017-112019-04-13 2019-04-13 Memoria unspecifie unspecifie 11-24 12:24:45 12:24:45 l d d 06:00: Willie 09/24/2018 00 04/13/2019 [facility] [place] Other Other Problem 2017-112019-02-20 2019-02-20 M emoria constipati constipati 12-14 14:09:15 14:09:15 l on on 10:50: Willie 10/13/2018 49 02/20/2019 [facility] Discharge Discharge Problem 2015-06-21 2015-06-21 Memoria Diagnosis: Diagnosis: 06-18 07:14:59 07:14:59 l Abdominal Abdominal 05:00: Herm sina pain pain 00 06/18/2015 06/21/2015 [place] Discharge Discharge Problem 2015-02-20 2015-02-20 Memoria Diagnosis: Diagnosis: 02-18 20:26:27 20:26:27 l Head Head 05:00: Lorida injury injury 02/18/2015 02/20/2015 [place] Discharge Discharge Problem 2015-02-20 2015-02-20 Memoria Diagnosis: Diagnosis: 02-18 20:26:27 20:26:27 l Concussion Concussion 05:00: He rmann 00 02/20/2015 [facility] [place] Discharge Discharge Problem 2014-2014-12-11 2014-12-11 Memoria Diagnosis: Diagnosis: 12-09 16:24:18 16:24:18 l Knee pain, Knee pain, 06:00: He rmann right right 00 12/09/2014 12/11/2014 [facility] Allergies, Adverse Reactions, Alerts Allergy Allergy Status Severity Reaction(s) Onset Inactive Treating Comm ents Source Name Type Date Date Clinician Cephalos Propensi Active Rash 2021-11 Univer s porins ty to 11-17 ity of adverse 00:00: [place] reaction 00 [facility] Penicill Propensi Active Rash 2021-11 Univer s in ty to 05 ity of adverse 00:00: [place] reaction [facility] Sulfur Propensi Active Rash 2021-11 Univers ty to 11-17 ity of adverse 00:00: [place] reaction 00 [facility] SULFUR DRUG Active High Rash 2021-11 Univers INGREDI -05 ity of 00:00: [place] 00 [facility] PENICILL DRUG Active High Rash 2021-11 Univers IN INGREDI -05 ity of 00:00: [place] 00 [facility] CEPHALOS Drug Active High Rash 2021-11 Univers PORINS Class -05 ity of 00:00: [place] 00 [facility] Penicill DA Active MO 2017-11 [facility] ins 1-19 Clear 00:00: [place] 00 [facility] Cephalos DA Active MO 2017-11 [facility] porins -19 Clear 00:00: [place] 00 [facility] Sulfa DA Active MO 2017-11 [facility] (Sulfona -19 Clear mide 00:00: [place] Antibiot 00 [facility] Cephalos drug Active UT porins allergy Physici ans Penicill drug Active UT ins allergy Physici ans sulfa drug Active UT allergy Physici ans Sulfa drug Active UT Drugs allergy Physici ans cephalos cephalos Active Memori a porins porins l Lorida sulfa sulfa Active Memoria drugs drugs l Lorida penicill penicill Active Memori a in in l Willie penicill penicill Active Memori a ins ins l Lorida NO KNOWN Drug Active Univers ALLERGIE Class ity of S [facility] Family History Family Member Diagnosis Comments Start Date Stop Date Source Unknown Family FH: cholecystectomy Maternal [facility] Physicians Member Relatives Unknown Family FH: HTN Family History [facility] Phy sicians Member (hypertension) Unknown Family Family history of Family History [facility] Member Elevated cholesterol Unknown Family Family history of Family History [facility] Physicians Member obesity Unknown Family FH: migraines Family History [facility] Member Unknown Family Family history of Family History [facility] Member mental disorder Unknown Family Family history of Family History [facility] Physicians Member diabetes mellitus Grandmother Family history of [facility] Phy sicians irritable bowel syndrome aunt Family history of [facility] Phys icians irritable bowel syndrome Mother FH: cholecystectomy [facility] Ph ysicians Sister Family history of GI [facility] P hysicians symptoms Social History Social Habit Start Date Stop Date Quantity Comments Source ASSERTION [facility] Exposure to 2022-09-07 2022-09-17 Not sure [facility] SARS-CoV-2 (event) 00:00:00 00:00:00 Medica l Branch Social History 2022-05-27 2022-05-27 [facility] 20:56:33 20:56:33 Sex Assigned At 2000 2000 [facility] 00:00:00 00:00:00 Medical Branch Smoking Status Start Date Stop Date Source Tobacco smoking consumption [facility] Branch Social [facility] Medications Ordered Filled Start Stop Current Ordering Indication Dosage Frequency Signature Comments Components Source Medication Medication Date Date Medication? Clinician (SIG) Name Name iopamidol 2021-11- No [id number] 100mL 100 mL, Univers (ISOVUE 11-17 Intravenou ity o f 370-500 mL) 08:00: 07:12 s, ONCE, 1 [place] injection 00 :00 dose, On Medica l 100 mL Sat Branch 09/17/22 at 0300, Routine ketorolac 2021-11 30mg 30 mg, Unive rs (TORADOL) 11-17 Slow IV ity of injection 07:30: 06:36 Push, [place] 30 mg 00 :00 ONCE, 1 Medical dose, On Branch 09/17/22 at 0230, Routine ibuprofen 2021-11 Yes [id number] 800mg Take 1 Univers 800 mg 05 tablet by ity of tablet 00:00: mouth [place] 00 every 8 Medical (eight) Branch hours as needed for Alternate with [place] for pain scale 4-6. acetaminoph Yes 1,000 mg = Memoria en 500 mg 7-18 2 tab, PO, l oral 12:20: Q6H, PRN Willie tablet. 00 Pain, X 14 day, # 56 tab, 0 Refill(s), Pharmacy: [facility][id number], 162.56, cm, 05/27/22 15:53:00 CDT, Height, 114.091, kg, 05/27/22 15:53:00 CDT, Weight Colace 50 2021-0 Yes 50 mg = 1 Mem oria mg oral 7-18 cap, PO, l capsule 12:20: BID, PRN Bartolome n 00 Constipati on, # 14 cap, 0 Refill(s), Pharmacy: [facility] #[id number], 162.56, cm, 05/27/22 15:53:00 CDT, Height, 114.091, kg, 05/27/22 15:53:00 CDT, Weight ibuprofen 2021-0 Yes 600 mg = 1 Me moria 600 mg oral 7-18 tab, PO, l tablet 12:20: Q6H, PRN Willie 00 Pain, Take with food, X 14 day, # 56 tab, 0 Refill(s), Pharmacy: [facility] #[id number], 162.56, cm, 05/27/22 15:53:00 CDT, Height, 114.091, kg, 05/27/22 15:53:00 CDT, Weight iron 2021-0 Yes 325 mg = 1 Memoria sulfate 7-18 tab, PO, l (ferrous 12:20: Daily, # Mame nn sulfate) 00 30 tab, 2 325 mg oral Refill(s), tablet Pharmacy: [facility] #[id number], 162.56, cm, 05/27/22 15:53:00 CDT, Height, 114.091, kg, 05/27/22 15:53:00 CDT, Weight tramadol 50 2021-0 Yes 50 mg = 1 M emoria mg oral 7-18 tab, PO, l tablet 12:20: Q4H, PRN Willie 00 Pain, Attending: Kanu Jenkins MD LIZZY: [id number], X 7 day, # 12 tab, 0 Refill(s), Pharmacy: [facility] #[id number], 162.56, cm, 05/27/22 15:53:00 CDT, Height, 114.091, kg, 05/27/22 15:53:00 CDT, Weight Vitafol-One Yes 1 cap, PO, Memoria oral 7-18 Daily, # l capsule 12:20: 30 cap, 11 Herm sina 00 Refill(s), [id number], 162.56, cm, 05/27/22 15:53:00 CDT, Height, 114.091, kg, 05/27/22 15:53:00 CDT, Weight acetaminoph Yes 1,000 mg = Memoria en 500 mg 7-18 2 tab, PO, l oral 12:20: Q6H, PRN Lorida tablet. 00 Pain, X 14 day, # 56 tab, 0 Refill(s), [id number], 162.56, cm, 05/27/22 15:53:00 CDT, Height, 114.091, kg, 05/27/22 15:53:00 CDT, Weight Colace 50 Yes 50 mg = 1 Mem oria mg oral 7-18 cap, PO, l capsule 12:20: BID, PRN Bartolome n 00 Constipati on, # 14 cap, 0 Refill(s), [id number], 162.56, cm, 05/27/22 15:53:00 CDT, Height, 114.091, kg, 05/27/22 15:53:00 CDT, Weight ibuprofen 0 Yes 600 mg = 1 Me moria 600 mg oral 7-18 tab, PO, l tablet 12:20: Q6H, PRN Willie 00 Pain, Take with food, X 14 day, # 56 tab, 0 Refill(s), [id number], 162.56, cm, 05/27/22 15:53:00 CDT, Height, 114.091, kg, 05/27/22 15:53:00 CDT, Weight iron 0 Yes 325 mg = 1 Memoria sulfate 7-18 tab, PO, l (ferrous 12:20: Daily, # Mame nn sulfate) 00 30 tab, 2 325 mg oral Refill(s), tablet Pharmacy: [facility] #[id number], 162.56, cm, 05/27/22 15:53:00 CDT, Height, 114.091, kg, 05/27/22 15:53:00 CDT, Weight tramadol 50 Yes 50 mg = 1 M emoria mg oral 7-18 tab, PO, l tablet 12:20: Q4H, PRN Lorida 00 Pain, Attending: Kanu Jenkins MD LIZZY: [id number], X 7 day, # 12 tab, 0 Refill(s), Pharmacy: [facility] #[id number], 162.56, cm, 05/27/22 15:53:00 CDT, Height, 114.091, kg, 05/27/22 15:53:00 CDT, Weight Vitafol-One Yes 1 cap, PO, Memoria oral 7-18 Daily, # l capsule 12:20: 30 cap, 11 Herm sina 00 Refill(s), [id number], 162.56, cm, 05/27/22 15:53:00 CDT, Height, 114.091, kg, 05/27/22 15:53:00 CDT, Weight ibuprofen No Notes: Memori a 7-17 (Same as: l 17:00: Motrin) Willie 00 "Do Not Crush" Take with food. ibuprofen No Notes: Memori a 7-17 (Same as: l 17:00: Motrin) Willie 00 "Do Not Crush" Take with food. No 1 tab, Memoria Multivitami 7-17 Route: PO, l ns oral 14:00: Drug Form: Herm sina tablet 00 TAB, Dosing Weight 114.091, kg, Daily, Start date: 05/29/22 9:00:00 CDT, Duration: 30 day, Stop date: 06/27/22 9:00:00 CDT, 0 No 1 tab, Memoria Multivitami 7-17 Route: PO, l ns oral 14:00: Drug Form: Herm sina tablet 00 TAB, Dosing Weight 114.091, kg, Daily, Start date: 05/29/22 9:00:00 CDT, Duration: 30 day, Stop date: 06/27/22 9:00:00 CDT, 0 ibuprofen No Notes: Memori a 7-17 (Same as: l 05:00: Motrin) Willie 00 "Do Not Crush" Take with food. acetaminoph No Notes: Max Memoria en 7-17 acetaminop l 05:00: hen 4000 Willie 00 mg/day (4 gm/day). (Same as: Tylenol Extra Strength) ibuprofen No Notes: Memori a 7-17 (Same as: l 05:00: Motrin) Willie 00 "Do Not Crush" Take with food. acetaminoph No Notes: Max Memoria en 7-17 acetaminop l 05:00: hen 4000 Willie 00 mg/day (4 gm/day). (Same as: Tylenol Extra Strength) Saline No Notes: Memoria Flush 0.9% 7-17 (Same as: l 02:00: BD Lorida 00 Posiflush) Saline No Notes: Memoria Flush 0.9% 7-17 (Same as: l 02:00: BD Lorida 00 Posiflush) naloxone No Notes: Memoria 7-17 Same as l 01:00: Narcan Lorida 00 naloxone No Notes: Memoria 7-17 Same as l 01:00: Narcan Lorida 00 oxyCODONE No Notes: Memori a immediate 7-17 (Same as: l release 00:26: Roxicodone Herm ) ondansetron No Notes: Leonid indigo 7-17 (Same as: l 00:26: Zofran) Lorida MEDICATION WASTE Product Size: 4 mg Product Wasted: ___ mg promethazin No Notes: Do M emoria e 7-17 not give l 00:26: IV push. Willie (Same as: Phenergan) metoclopram No Notes: Leonid indigo meche 7-17 (Same as: l 00:26: Reglan) nalbuphine No Notes: Memor ia 7-17 (Same As: l 00:26: Nubain) naloxone No Notes: Memoria 7-17 Same as l 00:26: Narcan oxyCODONE No Notes: Memori a immediate 7-17 (Same as: l release 00:26: Roxicodone ) ondansetron No Notes: Leonid indigo 7-17 (Same as: l 00:26: Zofran) MEDICATION WASTE Product Size: 4 mg Product Wasted: ___ mg promethazin No Notes: Do M emoria e 7-17 not give l 00:26: IV push. (Same as: Phenergan) metoclopram No Notes: Leonid indigo meche 7-17 (Same as: l 00:26: Reglan) nalbuphine No Notes: Memor ia 7-17 (Same As: l 00:26: Nubain) naloxone No Notes: Memoria 7-17 Same as l 00:26: Narcan metroNIDAZO No Notes: Leonid indigo LE 7-16 (Same as: l 21:00: Flagyl) Take with food/ avoid alcohol clindamycin No Notes: Leonid indigo 7-16 (Same As: l 21:00: Cleocin) metroNIDAZO No Notes: Leonid indigo LE 7-16 (Same as: l 21:00: Flagyl) Take with food/ avoid alcohol clindamycin No Notes: Leonid indigo 7-16 (Same As: l 21:00: Cleocin) morphine No Route: Memoria Sulfate 7-16 EPIDURAL, l (ANES) 17:07: Drug form: Mame nn 00 INJ, ONCE, Stop date: 05/28/22 12:07:00 CDT midazolam No Route: IV, Me moria (ANES) 7-16 Drug form: l 17:07: GREGN, Willie 00 ONCE, Stop date: 05/28/22 12:07:00 CDT morphine No Route: Memoria Sulfate 7-16 EPIDURAL, l (ANES) 17:07: Drug form: Mame nn 00 INJ, ONCE, Stop date: 05/28/22 12:07:00 CDT midazolam No Route: IV, Me moria (ANES) 716 Drug form: l 17:07: SOLN, Willie 00 ONCE, Stop date: 05/28/22 12:07:00 CDT tramadol No Notes: Not Mem oria 7-16 to exceed l 17:03: 400mg/day. Lorida 00 (Same As: Ultram) tramadol No Notes: Not Mem oria 7-16 to exceed l 17:03: 400mg/day. Willie 00 (Same As: Ultram) naloxone No Notes: Memoria -16 Same as l 17:00: Narcan 00 Lactated No 1,000 mL, Leonid indigo Ringers 05-28 1,000 l (Bolus) IV 17:00: ml/hr, Mame nn 00 Infuse Over: 1 hr, Route: IV, 1,000, Drug form: INJ, ONCALL, Dosing Weight 114.091 kg, Start date: 05/28/22 12:00:00 CDT, Duration: 1 doses or times, For OB hemorrhage per physician direction, 0 oxytocin No Notes: Memoria 7-16 (Same as: l 17:00: Pitocin) Hazardous Drug Group 3:Reproduc tive risk Hazardous Drug -- Refer to safe handling procedure PPE Matrix misoprostol No Notes: Leonid indigo 7-16 (Same l 17:00: as:Cytotec ) Hazardous Drug Group 3:Reproduc tive risk Hazardous Drug -- Refer to safe handling procedure PPE Matrix Take with food methylergon No Notes: Leonid indigo ovine 7-16 (Same l 17:00: as:Metherg ine) Hazardous Drug Group 3:Reproduc tive risk Hazardous Drug -- Refer to safe handling procedure PPE Matrix atropine-di No Notes: Leonid indigo phenoxylate 7-16 (Same As: l 0.025 17:00: Lomotil) Lorida mg-2.5 mg 00 MAX Adult oral tablet dose = 8 tabs/day carboprost No Notes: Memor ia 7-16 (Same As: l 17:00: Hemabate) Willie 00 tranexamic No Notes: Memor ia acid 7-16 (Same As: l 17:00: Cyklokapro Willie 00 n) ketOROLAC Yes 4 days Memor ia 7-16 l 17:00: MEDICATION Willie 00 WASTE Product Size: 30 mg Product Wasted: ___ mg atropine-di No Notes: Leonid indigo phenoxylate 7-16 (Same As: l 0.025 17:00: Lomotil) Willie mg-2.5 mg 00 MAX Adult oral tablet dose = 8 tabs/day carboprost No Notes: Memor ia 7-16 (Same As: l 17:00: Hemabate) tranexamic No Notes: Memor ia acid 7-16 (Same As: l 17:00: Cyklokapro Lorida 00 n) ketOROLAC Yes 4 days Memor ia 7-16 l 17:00: MEDICATION WASTE Product Size: 30 mg Product Wasted: ___ mg naloxone No Notes: Memoria 7-16 Same as l 17:00: Narcan Lorida 00 Lactated No 1,000 mL, Leonid indigo Ringers 7-16 1,000 l (Bolus) IV 17:00: ml/hr, Mame nn 00 Infuse Over: 1 hr, Route: IV, 1,000, Drug form: INJ, ONCALL, Dosing Weight 114.091 kg, Start date: 05/28/22 12:00:00 CDT, Duration: 1 doses or times, For OB hemorrhage per physician direction, 0 oxytocin No Notes: Memoria 7-16 (Same as: l 17:00: Pitocin) Lorida 00 Hazardous Drug Group 3:Reproduc tive risk Hazardous Drug -- Refer to safe handling procedure PPE Matrix misoprostol No Notes: Leonid indigo 7-16 (Same l 17:00: as:Cytotec ) Hazardous Drug Group 3:Reproduc tive risk Hazardous Drug -- Refer to safe handling procedure PPE Matrix Take with food methylergon No Notes: Leonid indigo ovine 7-16 (Same l 17:00: as:Metherg ine) Hazardous Drug Group 3:Reproduc tive risk Hazardous Drug -- Refer to safe handling procedure PPE Matrix Lactated No 1,000 mL, Leonid indigo Ringers IV 05-28 Rate: 125 l 1,000 mL 16:58: ml/hr, Infuse over: 8 hr, Route: IV, Dosing Weight 114.091 kg, Total Volume: 1,000, see special instructio n for rate while completing infusion from recovery for the 20 Units of Oxytocin., Start date: 05/28/22 11:58:00 CDT, Duration.. . bisacodyl No Notes: Memori a -16 (Same As: l 16:58: Dulcolax, Bisco-Lax) lanolin No 1 appl, Memoria topical 05-28 Route: l cream 16:58: TOP, PRN, Drug form: OINT, PRN Other -See Comment, Start date: 05/28/22 11:58:00 CDT, Duration: 30 day, Stop date: 06/27/22 11:57:00 CDT, 0 benzocaine- No Notes: Leonid indigo menthol 05-28 Cepacol l topical 16:58: lozenges Bartolome n 00 Dispense 1 box = 16 lozenges (Same As: Cepacol Lozenges) simethicone No Notes: Leonid indigo -16 (Same as: l 16:58: Mylicon) oxytocin 30 No Notes: Leonid indigo units in NS 05-28 Hazardous l 500 mL 16:58: Drug Group Mame nn (Titrate) 00 3:Reproduc IV 30 unit tive risk Hazardous Drug -- Refer to safe handling procedure PPE Matrix Saline No Notes: Memoria Flush 0.9% 05-28 (Same as: l 16:58: BD Posiflush) Lactated No 1,000 mL, Leonid indigo Ringers IV 05-28 Rate: 125 l 1,000 mL 16:58: ml/hr, Infuse over: 8 hr, Route: IV, Dosing Weight 114.091 kg, Total Volume: 1,000, see special instructio n for rate while completing infusion from recovery for the 20 Units of Oxytocin., Start date: 05/28/22 11:58:00 CDT, Duration.. . bisacodyl No Notes: Memori a 05-28 (Same As: l 16:58: Dulcolax, Bisco-Lax) lanolin No 1 appl, Memoria topical 05-28 Route: l cream 16:58: TOP, PRN, Drug form: OINT, PRN Other -See Comment, Start date: 05/28/22 11:58:00 CDT, Duration: 30 day, Stop date: 06/27/22 11:57:00 CDT, 0 benzocaine- No Notes: Leonid indigo menthol 05-28 Cepacol l topical 16:58: lozenges Bartolome n 00 Dispense 1 box = 16 lozenges (Same As: Cepacol Lozenges) simethicone No Notes: Leonid indigo 05-28 (Same as: l 16:58: Mylicon) oxytocin 30 No Notes: Leonid indigo units in NS 05-28 Hazardous l 500 mL 16:58: Drug Group Mame nn (Titrate) 00 3:Reproduc IV 30 unit tive risk Hazardous Drug -- Refer to safe handling procedure PPE Matrix Saline No Notes: Memoria Flush 0.9% 05-28 (Same as: l 16:58: BD Lorida 00 Posiflush) famotidine No Route: IV, M emoria (ANES) 05-28 Drug form: l 16:37: INJ, ONCE, Stop date: 05/28/22 11:37:00 CDT sodium No Route: PO, Memor ia citrate 05-28 Drug Form: l (ANES) 16:37: INJ, ONCE, Mame nn Stop date: 05/28/22 11:37:00 CDT ondansetron 0 No Route: IV, Memoria (ANES) 7-16 Drug form: l 16:37: INJ, ONCE, Willie Stop date: 05/28/22 11:37:00 CDT lidocaine 2021-0 No Route: Memori a (ANES) 7-16 EPIDURAL, l 16:37: Drug form: Lorida 00 INJ, ONCE, Stop date: 05/28/22 11:37:00 CDT sodium 0 No Route: Memoria bicarbonate 7-16 EPIDURAL, l (ANES) 16:37: Drug form: Mame nn 00 INJ, ONCE, Stop date: 05/28/22 11:37:00 CDT famotidine No Route: IV, M emoria (ANES) - Drug form: l 16:37: INJ, ONCE, Willie 00 Stop date: 05/28/22 11:37:00 CDT sodium 2021-0 No Route: PO, Memor ia citrate 05-28 Drug Form: l (ANES) 16:37: INJ, ONCE, Mame nn Stop date: 05/28/22 11:37:00 CDT ondansetron 0 No Route: IV, Memoria (ANES) 7-16 Drug form: l 16:37: INJ, ONCE, Lorida Stop date: 05/28/22 11:37:00 CDT lidocaine 2021-0 No Route: Memori a (ANES) 7-16 EPIDURAL, l 16:37: Drug form: Lorida 00 INJ, ONCE, Stop date: 05/28/22 11:37:00 CDT sodium 2021-0 No Route: Memoria bicarbonate 7-16 EPIDURAL, l (ANES) 16:37: Drug form: Mame nn 00 INJ, ONCE, Stop date: 05/28/22 11:37:00 CDT oxytocin 2021-0 No Route: IV, Mem oria (ANES) 30 05-28 Drug form: l unit 16:33: Pamella OCONNELLann Start date: 05/28/22 11:33:00 CDT, Stop date: 05/28/22 12:33:00 CDT oxytocin No Route: IV, Mem oria (ANES) 30 7-16 Drug form: l unit 16:33: SOLN, Lorida 00 Start date: 05/28/22 11:33:00 CDT, Stop date: 05/28/22 12:33:00 CDT acetaminoph No Notes: Max Memoria en 7-16 acetaminop l 16:23: hen 4000 Lorida 00 mg/day (4 gm/day). (Same as: Tylenol Extra Strength) oxyCODONE No Notes: Memori a immediate 7-16 (Same as: l release 16:23: Roxicodone Herm sina 00 ) hydromorpho No Notes: Leonid indigo ne 7-16 Same as l 16:23: Dilaudid Willie ondansetron No Notes: Leonid indigo 7-16 (Same as: l 16:23: Zofran) Lorida 00 MEDICATION WASTE Product Size: 4 mg Product Wasted: ___ mg naloxone No Notes: Memoria 7-16 Same as l 16:23: Narcan Lorida 00 nalbuphine No Notes: Memor ia 7-16 (Same As: l 16:23: Nubain) Lorida 00 acetaminoph No Notes: Max Memoria en 7-16 acetaminop l 16:23: hen 4000 Willie 00 mg/day (4 gm/day). (Same as: Tylenol Extra Strength) oxyCODONE No Notes: Memori a immediate 7-16 (Same as: l release 16:23: Roxicodone Herm sina 00 ) hydromorpho No Notes: Leonid indigo ne 7-16 Same as l 16:23: Dilaudid Willie 00 ondansetron No Notes: Leonid indigo 7-16 (Same as: l 16:23: Zofran) Willie 00 MEDICATION WASTE Product Size: 4 mg Product Wasted: ___ mg naloxone No Notes: Memoria 7-16 Same as l 16:23: Narcan Willie 00 nalbuphine No Notes: Memor ia 05-28 (Same As: l 16:23: Nubain) gentamicin No Route: IV, M emoria (ANES) 40 05-28 Drug form: l mg 16:08: INJ, Start date: 05/28/22 11:08:00 CDT, Stop date: 05/28/22 12:08:00 CDT vancomycin No Route: IV, M emoria (ANES) 05-28 Drug form: l mg + Sodium 16:08: INJ, Bartolome n Chloride Dosing 0.9% IV Weight (ANES) 500 114.1, kg, mL Start date: 05/28/22 11:08:00 CDT, Stop date: 05/28/22 12:08:00 CDT gentamicin No Route: IV, M emoria (ANES) 05-28 Drug form: l mg 16:08: INJ, Start date: 05/28/22 11:08:00 CDT, Stop date: 05/28/22 12:08:00 CDT vancomycin No Route: IV, M emoria (ANES) 05-28 Drug form: l mg + Sodium 16:08: INJ, Bartolome n Chloride 00 Dosing 0.9% IV Weight (ANES) 500 114.1, kg, mL Start date: 05/28/22 11:08:00 CDT, Stop date: 05/28/22 12:08:00 CDT phenylephri No Route: Leonid indigo ne (ANES) 05-28 IVP, Drug l 100 16:07: form: INJ, Lorida microgram Start date: 05/28/22 11:07:00 CDT, Stop date: 05/28/22 12:07:00 CDT phenylephri No Route: Leonid indigo ne (ANES) 05-28 IVP, Drug l 100 16:07: form: INJ, Lorida microgram Start date: 05/28/22 11:07:00 CDT, Stop date: 05/28/22 12:07:00 CDT azithromyci No Route: IV, Memoria n (ANES) 7-16 Drug form: l 500 mg 16:06: INJ, Start Mame nn 00 date: 05/28/22 11:06:00 CDT, Stop date: 05/28/22 12:06:00 CDT azithromyci No Route: IV, Memoria n (ANES) 7-16 Drug form: l 500 mg 16:06: INJ, Start Mame nn 00 date: 05/28/22 11:06:00 CDT, Stop date: 05/28/22 12:06:00 CDT Lactated 0 No Route: IV, Mem oria Ringers 7-16 Total l Injection 16:03: Volume: Mame nn IV (ANES) 00 1,000, 1000 mL Start date: 05/28/22 11:03:00 CDT, Stop date: 05/28/22 12:03:00 CDT Lactated No Route: IV, Mem oria Ringers 7-16 Total l Injection 16:03: Volume: Mame nn IV (ANES) 00 1,000, 1000 mL Start date: 05/28/22 11:03:00 CDT, Stop date: 05/28/22 12:03:00 CDT gentamicin No Notes: Memor ia + Sodium 7-16 (Same as l Chloride 16:00: Garamycin) Her roberts 0.9% IV 100 00 For adult mL patients only: Round to nearest 10 mg per Medical Staff approval gentamicin No Notes: Memor ia + Sodium 7-16 (Same as l Chloride 16:00: Garamycin) Her roberts 0.9% IV 100 00 For adult mL patients only: Round to nearest 10 mg per Medical Staff approval gentamicin No 570.455 Leonid indigo 7-16 mg, Route: l 14:43: IV, ONCE, Dosing Weight 114.091, kg, Start date: 05/28/22 9:43:00 CDT, Stop date: 05/28/22 9:43:00 CDT gentamicin No 570.455 Leonid indigo 7-16 mg, Route: l 14:43: IV, ONCE, Dosing Weight 114.091, kg, Start date: 05/28/22 9:43:00 CDT, Stop date: 05/28/22 9:43:00 CDT Phenergan + No Notes: Do M emoria Sodium 7-16 not give l Chloride 11:36: IV push. Mame nn 0.9% IV 50 00 (Same as: mL Phenergan) Phenergan + No Notes: Do M emoria Sodium 7-16 not give l Chloride 11:36: IV push. Mame nn 0.9% IV 50 00 (Same as: mL Phenergan) oxytocin 30 No Notes: Leonid indigo units in NS 16 Hazardous l 500 mL 03:27: Drug Group Mame nn (Titrate) 00 3:Reproduc IV 30 unit tive risk Hazardous Drug -- Refer to safe handling procedure PPE Matrix oxytocin 30 No Notes: Leonid indigo units in NS 7-16 Hazardous l 500 mL 03:27: Drug Group Mame nn (Titrate) 00 3:Reproduc IV 30 unit tive risk Hazardous Drug -- Refer to safe handling procedure PPE Matrix misoprostol No Notes: Leonid indigo 7-15 (Same l 22:03: as:Cytotec Willie 00 ) Take with food Hazardous Drug Group 3:Reproduc tive risk Hazardous Drug -- Refer to safe handling procedure PPE Matrix 25 microgram = 1/4 tab of 100 microgram. misoprostol No Notes: Leonid indigo 7-15 (Same l 22:03: as:Cytotec Willie 00 ) Take with food Hazardous Drug Group 3:Reproduc tive risk Hazardous Drug -- Refer to safe handling procedure PPE Matrix 25 microgram = 1/4 tab of 100 microgram. vancomycin No 2000 mg: Me moria 7-15 infuse l 21:00: over 2.5 Willie 00 hours vancomycin No 2000 mg: Me moria 7-15 infuse l 21:00: over 2.5 Lorida 00 hours Vancomycin No PHARMACY [facility] USE ONLY, l Dosing 20:01: Route: Willie Consult 56 MISC, PRN, Drug form: MISC, PRN Other -See Comment, Start date: 05/27/22 15:01:56 CDT, Stop date: 06/26/22 15:01:56 CDT, 30 day Vancomycin No PHARMACY [facility] -[facility] USE ONLY, l Dosing 20:01: Route: Lorida Consult 56 MISC, PRN, Drug form: MISC, PRN Other -See Comment, Start date: 05/27/22 15:01:56 CDT, Stop date: 06/26/22 15:01:56 CDT, 30 day acetaminoph No Notes: Max Memoria en -15 acetaminop l 20:00: hen 4000 Willie 00 mg/day (4 gm/day). (Same as: Tylenol Extra Strength) ibuprofen No Notes: Memori a 7-15 (Same as: l 20:00: Motrin) Willie 00 "Do Not Crush" Take with food. Lactated No 1,000 mL, Leonid indigo Ringers 7-15 1,000 l (Bolus) IV 20:00: ml/hr, Mame nn 00 Infuse Over: 1 hr, Route: IV, 1,000, Drug form: INJ, ONCALL, Dosing Weight 114.091 kg, Start date: 05/27/22 15:00:00 CDT, Duration: 1 doses or times, For OB hemorrhage per physician direction, 0 oxytocin No Notes: Memoria 7-15 (Same as: l 20:00: Pitocin) Willie 00 Hazardous Drug Group 3:Reproduc tive risk Hazardous Drug -- Refer to safe handling procedure PPE Matrix misoprostol No Notes: Leonid indigo 7-15 (Same l 20:00: as:Cytotec Willie 00 ) Hazardous Drug Group 3:Reproduc tive risk Hazardous Drug -- Refer to safe handling procedure PPE Matrix Take with food methylergon No Notes: Leonid indigo ovine 7-15 (Same l 20:00: as:Metherg Willie 00 ine) Hazardous Drug Group 3:Reproduc tive risk Hazardous Drug -- Refer to safe handling procedure PPE Matrix atropine-di No Notes: Leonid indigo phenoxylate 7-15 (Same As: l 0.025 20:00: Lomotil) Willie mg-2.5 mg 00 MAX Adult oral tablet dose = 8 tabs/day carboprost No Notes: Memor ia 7-15 (Same As: l 20:00: Hemabate) Willie 00 tranexamic No Notes: Memor ia acid 7-15 (Same As: l 20:00: Cyklokapro n) acetaminoph No Notes: Max Memoria en 7-15 acetaminop l 20:00: hen 4000 Lorida 00 mg/day (4 gm/day). (Same as: Tylenol Extra Strength) ibuprofen No Notes: Memori a 7-15 (Same as: l 20:00: Motrin) Lorida 00 "Do Not Crush" Take with food. Lactated No 1,000 mL, Leonid indigo Ringers 7-15 1,000 l (Bolus) IV 20:00: ml/hr, Mame nn Infuse Over: 1 hr, Route: IV, 1,000, Drug form: INJ, ONCALL, Dosing Weight 114.091 kg, Start date: 05/27/22 15:00:00 CDT, Duration: 1 doses or times, For OB hemorrhage per physician direction, 0 oxytocin No Notes: Memoria 7-15 (Same as: l 20:00: Pitocin) Hazardous Drug Group 3:Reproduc tive risk Hazardous Drug -- Refer to safe handling procedure PPE Matrix misoprostol No Notes: Leonid indigo 7-15 (Same l 20:00: as:Cytotec ) Hazardous Drug Group 3:Reproduc tive risk Hazardous Drug -- Refer to safe handling procedure PPE Matrix Take with food methylergon No Notes: Leonid indigo ovine 7-15 (Same l 20:00: as:Metherg ine) Hazardous Drug Group 3:Reproduc tive risk Hazardous Drug -- Refer to safe handling procedure PPE Matrix atropine-di No Notes: Leonid indigo phenoxylate 7-15 (Same As: l 0.025 20:00: Lomotil) mg-2.5 mg 00 MAX Adult oral tablet dose = 8 tabs/day carboprost No Notes: Memor ia 7-15 (Same As: l 20:00: Hemabate) Willie 00 tranexamic No Notes: Memor ia acid 7-15 (Same As: l 20:00: Cyklokapro Willie 00 n) Lactated No 1,000 mL, Leonid indigo Ringers 7-15 Rate: 125 l Injection 19:52: ml/hr, Bartolome n IV 1,000 mL 00 Infuse over: 8 hr, Route: IV, Dosing Weight 114.091 kg, Total Volume: 1,000, see special instructio ns when infusing 20 Units of Oxytocin., Start date: 05/27/22 14:52:00 CDT, Duration: 30 day, Stop date: 06/26/22 14:51:00 CDT... oxytocin 30 No Notes: Leonid indigo units in NS 7-15 Hazardous l 500 mL 19:52: Drug Group Mame nn (Bolus) IV 00 3:Reproduc 10.02 unit tive risk Hazardous Drug -- Refer to safe handling procedure PPE Matrix oxytocin 30 No Notes: Leonid indigo units in NS 7-15 Hazardous l 500 mL IV 19:52: Drug Group He rmann 19.98 unit 00 3:Reproduc tive risk Hazardous Drug -- Refer to safe handling procedure PPE Matrix butorphanol No Notes: Leonid indigo 7-15 (Same As: l 19:52: Stadol) 00 MEDICATION WASTE Product Size: 2 mg Product Wasted: ___ mg oxyCODONE No Notes: Memori a immediate 7-15 (Same as: l release 19:52: Roxicodone ) ondansetron No Notes: Leonid indigo 7-15 (Same as: l 19:52: Zofran) 00 MEDICATION WASTE Product Size: 4 mg Product Wasted: ___ mg lidocaine No Notes: Memori a 1% 7-15 Preservati l injectable 19:52: ve free. Her roberts solution 00 (Same as: Xylocaine MPF) lidocaine No Notes: Memori a 1% 7-15 Preservati l 19:52: ve free. Lorida 00 (Same as: Xylocaine MPF) terbutaline No Notes: Leonid indigo 7-15 DO NOT l 19:52: USE IN Lorida 00 [employer] (Same As: Brethine) Dermoplast No Notes: Memor ia Pain 7-15 (Same As: l Relieving 19:52: Dermoplast Boby rmann 20%-0.5% 00 ) WASTE: topical Aerosol - spray Return to Pharmacy FOR EXTERNAL USE ONLY oxytocin 30 No Notes: Leonid indigo units in NS 7-15 Hazardous l 500 mL 19:52: Drug Group Mame nn (Titrate) 00 3:Reproduc IV 30 unit tive risk Hazardous Drug -- Refer to safe handling procedure PPE Matrix Lactated No 1,000 mL, Leonid indigo Ringers -15 Rate: 125 l Injection 19:52: ml/hr, Bartolome n IV 1,000 mL 00 Infuse over: 8 hr, Route: IV, Dosing Weight 114.091 kg, Total Volume: 1,000, see special instructio ns when infusing 20 Units of Oxytocin., Start date: 05/27/22 14:52:00 CDT, Duration: 30 day, Stop date: 06/26/22 14:51:00 CDT... oxytocin 30 No Notes: Leonid indigo units in NS 7-15 Hazardous l 500 mL 19:52: Drug Group Mame nn (Bolus) IV 00 3:Reproduc 10.02 unit tive risk Hazardous Drug -- Refer to safe handling procedure PPE Matrix oxytocin 30 No Notes: Leonid indigo units in NS 7-15 Hazardous l 500 mL IV 19:52: Drug Group He rmann 19.98 unit 00 3:Reproduc tive risk Hazardous Drug -- Refer to safe handling procedure PPE Matrix butorphanol No Notes: Leonid indigo 7-15 (Same As: l 19:52: Stadol) MEDICATION WASTE Product Size: 2 mg Product Wasted: ___ mg oxyCODONE No Notes: Memori a immediate 7-15 (Same as: l release 19:52: Roxicodone ) ondansetron No Notes: Leonid indigo 7-15 (Same as: l 19:52: Zofran) MEDICATION WASTE Product Size: 4 mg Product Wasted: ___ mg lidocaine No Notes: Memori a 1% 7-15 Preservati l injectable 19:52: ve free. Her roberts solution (Same as: Xylocaine MPF) lidocaine No Notes: Memori a 1% 7-15 Preservati l 19:52: ve free. Lorida (Same as: Xylocaine MPF) terbutaline No Notes: Leonid indigo 7-15 DO NOT l 19:52: USE IN Lorida [employer] (Same As: Brethine) Dermoplast No Notes: Memor ia Pain 7-15 (Same As: l Relieving 19:52: Dermoplast He rmann 20%-0.5% 00 ) WASTE: topical Aerosol - spray Return to Pharmacy FOR EXTERNAL USE ONLY oxytocin 30 No Notes: Leonid indigo units in NS 7-15 Hazardous l 500 mL 19:52: Drug Group Mame nn (Titrate) 00 3:Reproduc IV 30 unit tive risk Hazardous Drug -- Refer to safe handling procedure PPE Matrix ferrous Yes PO, 0 Memoria sulfate 7-07 Refill(s) l 23:10: Lorida Yes PO, Daily, Mem oria Complete 7-07 0 l with DHA 23:10: Refill(s) Herm sina 00 ferrous Yes PO, 0 Memoria sulfate 7-07 Refill(s) l 23:10: Willie Yes PO, Daily, Mem oria Complete 7-07 0 l with DHA 23:10: Refill(s) Herm sina Zofran ODT Yes 4 mg = 1 Mem oria 7-07 tab, PO, l 23:09: TID, PRN Nausea / Vomiting, Dissolve tab under tongue, # 10 tab, 0 Refill(s) Zofran ODT Yes 4 mg = 1 Mem oria 7-07 tab, PO, l 23:09: TID, PRN Nausea / Vomiting, Dissolve tab under tongue, # 10 tab, 0 Refill(s) Metoclopram 2020-11 Yes 10 mg = 1 M emoria meche 10 MG 2-16 tab, PO, l Oral Tablet 21:22: QID, X 10 H ermann [Reglan] day, # 40 tab, 0 Refill(s), Pharmacy: [facility] #[id number], 162.56, cm, 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, 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, 48.182, kg, 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, Weight Metoclopram 2020-11 Yes 10 mg = 1 M emoria meche 10 MG 2-16 tab, PO, l Oral Tablet 21:22: QID, X 10 H ermann [Reglan] day, # 40 tab, 0 Refill(s), Pharmacy: [facility] #[id number], 162.56, cm, 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, Height, 48.182, kg, 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, Weight Saline 2020-11 No Notes: Memoria Flush 0.9% 2-16 Same as: l 18:06: BD Lorida 00 Posiflush Sterile Sodium 2020-11 No 1,000 mL, Memori a Chloride 2-16 1000 l 0.9% 18:06: ml/hr, Willie (Bolus) IV 00 Infuse Over: 1 hr, Route: IV, 1,000, Drug form: INJ, ONCE, Priority: STAT, Dosing Weight 101.045 kg, Start date: 10/28/21 12:06:00 CANE PACKER, Stop date: 10/28/21 12:06:00 CANE PACKER, 0 Reglan 2020-11 No Notes: Memoria 2-16 (Same as: l 18:06: Reglan) Lorida 00 Saline 2020-11 No Notes: Memoria Flush 0.9% 2-16 Same as: l 18:06: BD Willie 00 Posiflush Sterile Sodium 2020-11 No 1,000 mL, Memori a Chloride 2-16 1000 l 0.9% 18:06: ml/hr, Willie (Bolus) IV 00 Infuse Over: 1 hr, Route: IV, 1,000, Drug form: INJ, ONCE, Priority: STAT, Dosing Weight 101.045 kg, Start date: 10/28/21 12:06:00 CANE PACKER, Stop date: 10/28/21 12:06:00 CANE PACKER, 0 Reglan 2020-11 No Notes: Memoria 2-16 (Same as: l 18:06: Reglan) Levofloxaci Yes 750 mg = 1 Memoria n 750 MG 7-06 tab, PO, l Oral Tablet 05:05: Daily, X 5 Lorida [Levaquin] day, # 5 tab, 0 Refill(s), Pharmacy: [facility] #[id number], 162.56, cm, 05/17/21 21:44:00 CDT, Height, 101.045, kg, 05/17/21 21:44:00 CDT, Weight Ondansetron Yes 4 mg = 1 Me moria 4 MG Oral 7-06 tab, PO, l Tablet 05:05: TID, X 3 Willie [Zofran] day, # 9 tab, 0 Refill(s), Pharmacy: [facility] #[id number], 162.56, cm, 05/17/21 21:44:00 CDT, Height, 101.045, kg, 05/17/21 21:44:00 CDT, Weight Levofloxaci Yes 750 mg = 1 Memoria n 750 MG 7-06 tab, PO, l Oral Tablet 05:05: Daily, X 5 Lorida [Levaquin] day, # 5 tab, 0 Refill(s), Pharmacy: [facility] #[id number], 162.56, cm, 05/17/21 21:44:00 CDT, Height, 101.045, kg, 05/17/21 21:44:00 CDT, Weight Ondansetron Yes 4 mg = 1 Me moria 4 MG Oral 7-06 tab, PO, l Tablet 05:05: TID, X 3 Willie [Zofran] day, # 9 tab, 0 Refill(s), Pharmacy: [facility] #[id number], 162.56, cm, 05/17/21 21:44:00 CDT, Height, 101.045, kg, 05/17/21 21:44:00 CDT, Weight Levaquin No Notes: Do Leonid indigo 7-06 not give l 03:33: w/antacids , dairy pdt & minerals Take 1 hr before or 2 hr after dairy pdt (Same as:Levaqui n) Levaquin No Notes: Do Leonid indigo 05-18 not give l 03:33: w/antacids Lorida 00 , dairy pdt & minerals Take 1 hr before or 2 hr after dairy pdt (Same as:Levaqui n) Famotidine No 20 mg, 2 Mem oria 7-06 mL, Route: l 03:18: IV, Drug Lorida 00 form: INJ, ONCE, Dosing Weight 101.045, kg, Start date: 05/17/21 22:18:00 CDT, Stop date: 05/17/21 22:18:00 CDT, 0 Famotidine No 20 mg, 2 Mem oria 7-06 mL, Route: l 03:18: IV, Drug Lorida form: INJ, ONCE, Dosing Weight 101.045, kg, Start date: 05/17/21 22:18:00 CDT, Stop date: 05/17/21 22:18:00 CDT, 0 Sodium 2020-0 No 1,000 mL, Memori a Chloride 7- 1000 l 0.9% 03:16: ml/hr, Willie (Bolus) IV 00 Infuse Over: 1 hr, Route: IV, 1,000, Drug form: INJ, ONCE, Priority: STAT, Dosing Weight 101.045 kg, Start date: 05/17/21 22:16:00 CDT, Stop date: 05/17/21 22:16:00 CDT, 0 Ondansetron No Notes: Leonid indigo 05-18 (Same as: l 03:16: Zofran) Lorida 00 MEDICATION WASTE Product Size: 4 mg Product Wasted: ___ mg GI cocktail No 45 mL, Leonid indigo (aluminum -06 Route: PO, l hydroxide/m 03:16: Dosing Herm sina agnesium 00 Weight hydroxide/l 101.045, idocaine/si kg, ONCE, methicone) STAT, Start date: 05/17/21 22:16:00 CDT, Stop date: 05/17/21 22:16:00 CDT Sodium 2020-0 No 1,000 mL, Memori a Chloride 7-06 1000 l 0.9% 03:16: ml/hr, Willie (Bolus) IV 00 Infuse Over: 1 hr, Route: IV, 1,000, Drug form: INJ, ONCE, Priority: STAT, Dosing Weight 101.045 kg, Start date: 05/17/21 22:16:00 CDT, Stop date: 05/17/21 22:16:00 CDT, 0 Ondansetron 2020-0 No Notes: Leonid indigo 05-18 (Same as: l 03:16: Zofran) Willie 00 MEDICATION WASTE Product Size: 4 mg Product Wasted: ___ mg GI cocktail No 45 mL, Leonid indigo (aluminum 05-18 Route: PO, l hydroxide/m 03:16: Dosing Herm sina agnesium 00 Weight hydroxide/l 101.045, idocaine/si kg, ONCE, methicone) STAT, Start date: 05/17/21 22:16:00 CDT, Stop date: 05/17/21 22:16:00 CDT Ondansetron 2020-0 Yes 4 mg = 1 Me moria 4 MG Oral - tab, PO, l Tablet 14:02: Q8H, PRN Willie [Zofran] 00 Nausea/vom iting, X 10 day, # 30 tab, 0 Refill(s) Ondansetron 2020-0 Yes 4 mg = 1 Me moria 4 MG Oral 7-01 tab, PO, l Tablet 14:02: Q8H, PRN Lorida [Zofran] 00 Nausea/vom iting, X 10 day, # 30 tab, 0 Refill(s) Tylenol 0 No 650 mg, Memoria 05-13 Route: PO, l 13:30: Drug form: Lorida 00 TAB, ONCE, Dosing Weight 100, kg, Priority: STAT, Start date: 05/13/21 8:30:00 CDT, Stop date: 05/13/21 8:30:00 CDT Motrin 2020-0 No 600 mg, Memoria 05-13 Route: PO, l 13:30: Drug form: Lorida 00 TAB, ONCE, Dosing Weight 100, kg, Priority: STAT, Start date: 05/13/21 8:30:00 CDT, Stop date: 05/13/21 8:30:00 CDT Zofran ODT 2021-0 No 4 mg, Memori a 05-13 Route: PO, l 13:30: Drug form: Lorida 00 TABDIS, ONCE, Dosing Weight 100, kg, Priority: STAT, Start date: 05/13/21 8:30:00 CDT, Stop date: 05/13/21 8:30:00 CDT Dexamethaso 2021-0 No 10 mg, Leonid indigo ne 05-13 Route: IM, l 13:30: ONCE, Dosing Weight 100, kg, Priority: STAT, Start date: 05/13/21 8:30:00 CDT, Stop date: 05/13/21 8:30:00 CDT Tylenol 2020-0 No 650 mg, Memoria 05-13 Route: PO, l 13:30: Drug form: Willie TAB, ONCE, Dosing Weight 100, kg, Priority: STAT, Start date: 05/13/21 8:30:00 CDT, Stop date: 05/13/21 8:30:00 CDT Motrin 2020-0 No 600 mg, Memoria 05-13 Route: PO, l 13:30: Drug form: Lorida 00 TAB, ONCE, Dosing Weight 100, kg, Priority: STAT, Start date: 05/13/21 8:30:00 CDT, Stop date: 05/13/21 8:30:00 CDT Zofran ODT 2021-0 No 4 mg, Memori a 05-13 Route: PO, l 13:30: Drug form: Willie 00 TABDIS, ONCE, Dosing Weight 100, kg, Priority: STAT, Start date: 05/13/21 8:30:00 CDT, Stop date: 05/13/21 8:30:00 CDT Dexamethaso 2021-0 No 10 mg, Leonid indigo ne 05-13 Route: IM, l 13:30: ONCE, Dosing Weight 100, kg, Priority: STAT, Start date: 05/13/21 8:30:00 CDT, Stop date: 05/13/21 8:30:00 CDT Phenazopyri 2020-0 No 100 mg = 1 Memoria dine 3-23 tab, PO, l hydrochlori 19:44: TID, PRN He rmann de 100 MG 00 Dysuria, X Oral Tablet 2 day, # 6 [Pyridium] tab, 0 Refill(s) Ondansetron 0 Yes 4 mg = 1 Me moria 4 MG Oral 3-23 tab, PO, l Tablet 19:44: TID, PRN Lorida [Zofran] 00 Nausea & Vomiting, # 15 tab, 0 Refill(s) Nitrofurant 0 No 100 mg = 1 Memoria oin 100 MG 3-23 cap, PO, l Oral 19:44: Q12H, X 5 Lorida Capsule 00 day, # 10 [Macrobid] cap, 0 Refill(s) Phenazopyri 0 No 100 mg = 1 Memoria dine 3-23 tab, PO, l hydrochlori 19:44: TID, PRN He rmann de 100 MG 00 Dysuria, X Oral Tablet 2 day, # 6 [Pyridium] tab, 0 Refill(s) Ondansetron 0 Yes 4 mg = 1 Me moria 4 MG Oral 3-23 tab, PO, l Tablet 19:44: TID, PRN Willie [Zofran] 00 Nausea & Vomiting, # 15 tab, 0 Refill(s) Nitrofurant 0 No 100 mg = 1 Memoria oin 100 MG 3-23 cap, PO, l Oral 19:44: Q12H, X 5 Lorida Capsule 00 day, # 10 [Macrobid] cap, 0 Refill(s) ketOROLAC 0 No 15 mg, Memori a 15 mg/mL 02-02 Route: l injectable 19:35: IVP, Drug He rmann solution 00 form: INJ, ONCE, Dosing Weight 99.545, kg, Priority: STAT, Start date: 02/02/21 14:35:00 CDT, Stop date: 02/02/21 14:35:00 CDT Ketorolac 0 No 15 mg, Memori a 02-02 Route: l 19:35: IVP, Drug Willie 00 form: INJ, ONCE, Dosing Weight 99.545, kg, Priority: STAT, Start date: 02/02/21 14:35:00 CDT, Stop date: 02/02/21 14:35:00 CDT ketOROLAC 2021-0 No 15 mg, Memori a 15 mg/mL 3- Route: l injectable 19:35: IVP, Drug He rmann solution 00 form: INJ, ONCE, Dosing Weight 99.545, kg, Priority: STAT, Start date: 02/02/21 14:35:00 CDT, Stop date: 02/02/21 14:35:00 CDT Ketorolac 1-0 No 15 mg, Memori a 02-02 Route: l 19:35: IVP, Drug Lorida 00 form: INJ, ONCE, Dosing Weight 99.545, kg, Priority: STAT, Start date: 02/02/21 14:35:00 CDT, Stop date: 02/02/21 14:35:00 CDT Macrobid 2020-0 No 100 mg, Memori a 02-02 Route: PO, l 18:24: ONCE, Lorida 00 Dosing Weight 99.545, kg, Priority: STAT, Start date: 02/02/21 13:24:00 CDT, Stop date: 02/02/21 13:24:00 CDT Macrobid 2020-0 No 100 mg, Memori a - Route: PO, l 18:24: ONCE, Willie 00 Dosing Weight 99.545, kg, Priority: STAT, Start date: 02/02/21 13:24:00 CDT, Stop date: 02/02/21 13:24:00 CDT Sodium 1-0 No 1,000 mL, Memori a Chloride 02-02 Infuse l 0.9% 17:28: Over: 1 Lorida (Bolus) IV 00 hr, Route: IV, ONCE, Priority: STAT, Dosing Weight 99.545 kg, Start date: 02/02/21 12:28:00 CDT, Stop date: 02/02/21 12:28:00 CDT Morphine 1-0 No 4 mg, Memoria 3- Route: l 17:28: IVP, Drug Willie 00 form: INJ, ONCE, Dosing Weight 99.545, kg, Priority: STAT, Start date: 02/02/21 12:28:00 CDT, Stop date: 02/02/21 12:28:00 CDT Zofran 1-0 No 4 mg, Memoria 3-23 Route: l 17:28: IVP, Drug Willie 00 form: INJ, ONCE, Dosing Weight 99.545, kg, Priority: STAT, Start date: 02/02/21 12:28:00 CDT, Stop date: 02/02/21 12:28:00 CDT Sodium 1-0 No 1,000 mL, Memori a Chloride 02-02 Infuse l 0.9% 17:28: Over: 1 Lorida (Bolus) IV 00 hr, Route: IV, ONCE, Priority: STAT, Dosing Weight 99.545 kg, Start date: 02/02/21 12:28:00 CDT, Stop date: 02/02/21 12:28:00 CDT Morphine 2020-0 No 4 mg, Memoria 02-02 Route: l 17:28: IVP, Drug Willie 00 form: INJ, ONCE, Dosing Weight 99.545, kg, Priority: STAT, Start date: 02/02/21 12:28:00 CDT, Stop date: 02/02/21 12:28:00 CDT Zofran 2020-0 No 4 mg, Memoria 02-02 Route: l 17:28: IVP, Drug Lorida 00 form: INJ, ONCE, Dosing Weight 99.545, kg, Priority: STAT, Start date: 02/02/21 12:28:00 CDT, Stop date: 02/02/21 12:28:00 CDT Ondansetron 2017- Yes 4 mg = 1 Me moria 4 MG Oral 1-13 tab, PO, l Tablet 01:15: BID, # 10 Bartolome n [Zofran] 00 tab, 0 Refill(s) omeprazole 2017-11 Yes 10 mg = 1 Me moria 10 mg oral 1-13 cap, PO, l delayed 01:15: Daily, # Bartolome n release 00 30 cap, 0 capsule Refill(s) Ondansetron 2017- Yes 4 mg = 1 Me moria 4 MG Oral 1-13 tab, PO, l Tablet 01:15: BID, # 10 Bartolome n [Zofran] 00 tab, 0 Refill(s) omeprazole 2017-11 Yes 10 mg = 1 Me moria 10 mg oral 1-13 cap, PO, l delayed 01:15: Daily, # Bartolome n release 00 30 cap, 0 capsule Refill(s) Ondansetron 2017-11 No Notes: Leonid indigo -12 (Same as: l 23:39: Zofran) Lorida 00 MEDICATION WASTE Product Size: 4 mg Product Wasted: _0__ mg Famotidine 2017-11 No Notes: Memor ia -12 (Same as: l 23:39: Pepcid) Lorida 00 Can be dilute in 5-10cc NS IVP: Slow IV push over at least 2 minutes. Morphine 2017-11 No Notes: Memoria 12 (Same l 23:39: as:MORPhin Lorida 00 e Sulfate) Ondansetron 2017-11 No Notes: Leonid indigo -12 (Same as: l 23:39: Zofran) Lorida 00 MEDICATION WASTE Product Size: 4 mg Product Wasted: _0__ mg Famotidine 2017-11 No Notes: Memor ia -12 (Same as: l 23:39: Pepcid) Willie 00 Can be dilute in 5-10cc NS IVP: Slow IV push over at least 2 minutes. Morphine 2017-11 No Notes: Memoria 12 (Same l 23:39: as:MORPhin Willie 00 e Sulfate) Dicyclomine Dicyclomine Yes BLAIR BECERRA Q6H TAKE 1 UT HCl - 20 MG HCl - 20 MG 1-30 MD TABLET [facility] Oral Tablet Oral Tablet 00:00: EVERY 6 ans 00 HOURS NEEDED. Scopolamine Scopolamine Yes CRISTONIEL APPLY 1 UT 1 MG/3DAYS 1 MG/3DAYS 1-30 ABRENICA PATCH [facility] Transdermal Transdermal 00:00: M.D. EVERY 3 ans Patch 72 Patch 72 00 DAYS Hour Hour Polyethylen Polyethylen 2016-11 Yes CANDY QD MIX 1 UT e Glycol e Glycol 2-12 HAYDEN Fishman [facility] 3350 Oral 3350 Oral 00:00: M.D. (17GM) IN ans Powder Powder 00 8 OUNCES OF WATER, JUICE, OR TEA AND DRINK DAILY. Ondansetron Ondansetron 2016-11 Yes BLAIR BECERRA Allow 1 UT 8 MG Oral 8 MG Oral 2-12 MD tablet to [facility] Tablet Tablet 00:00: dissolve ans Disintegrat Disintegrat 00 in mouth ing ing q12 hours prn nausea/ vomiting. Pantoprazol Pantoprazol 2016-11 Yes BLAIR BECERRA 1 QD Take 1 UT e Sodium 40 e Sodium 40 2-12 MD tablet po [facility] MG Oral MG Oral 00:00: twice ans Tablet Tablet 00 daily Delayed Delayed Release Release Nitrofurant 2016-11 Yes 100 mg = 1 Memoria oin 100 MG 1-30 cap, PO, l Oral 19:02: BID, X 7 Willie Capsule 00 day, # 14 [Macrobid] cap, 0 Refill(s) Nitrofurant 2016-11 Yes 100 mg = 1 Memoria oin 100 MG 1-30 cap, PO, l Oral 19:02: BID, X 7 Lorida Capsule 00 day, # 14 [Macrobid] cap, 0 Refill(s) Dicyclomine 2016-11 Yes 20 mg = 1 M emoria Hydrochlori 1-30 tab, PO, l de 20 MG 18:48: QID-Before Her roberts Oral Tablet 00 Meals, PRN [Bentyl] Abdominal Pain, # 20 tab, 0 Refill(s) Ondansetron 2016-11 Yes 4 mg = 1 Me moria 4 MG 1-30 tab, PO, l Disintegrat 18:48: BID, PRN He rmann ing Tablet 00 Nausea and [Zofran] Vomiting, Dissolve tab under tongue, # 20 tab, 0 Refill(s) pantoprazol 2016-11 Yes 40 mg = 1 M emoria e 40 MG 1-30 tab, PO, l Enteric 18:48: Daily, # Bartolome n Coated 00 30 tab, 0 Tablet Refill(s) [Protonix] Dicyclomine 2016-11 Yes 20 mg = 1 M emoria Hydrochlori 1-30 tab, PO, l de 20 MG 18:48: QID-Before Her roberts Oral Tablet 00 Meals, PRN [Bentyl] Abdominal Pain, # 20 tab, 0 Refill(s) Ondansetron 2016-11 Yes 4 mg = 1 Me moria 4 MG 1-30 tab, PO, l Disintegrat 18:48: BID, PRN He rmann ing Tablet 00 Nausea and [Zofran] Vomiting, Dissolve tab under tongue, # 20 tab, 0 Refill(s) pantoprazol 2016-11 Yes 40 mg = 1 M emoria e 40 MG 1-30 tab, PO, l Enteric 18:48: Daily, # Bartolome n Coated 00 30 tab, 0 Tablet Refill(s) [Protonix] ketOROLAC 2016- No 30 mg, Memori a 30 mg/mL 30 Route: l injectable 18:40: IVP, Drug He rmann solution 00 form: INJ, ONCE, Dosing Weight 86.364, kg, Priority: STAT, Start date: 10/12/17 12:40:00 CANE PACKER, Stop date: 10/12/17 12:40:00 CANE PACKER GI cocktail 2016- No 30 mL, Leonid indigo 30 Route: PO, l 18:40: Dosing Willie 00 Weight 86.364, kg, ONCE, STAT, Start date: 10/12/17 12:40:00 CANE PACKER, Stop date: 10/12/17 12:40:00 CANE PACKER ketOROLAC 2016-11 No 30 mg, Memori a 30 mg/mL 30 Route: l injectable 18:40: IVP, Drug He rmann solution 00 form: INJ, ONCE, Dosing Weight 86.364, kg, Priority: STAT, Start date: 10/12/17 12:40:00 CANE PACKER, Stop date: 10/12/17 12:40:00 CANE PACKER GI cocktail 2016-11 No 30 mL, Leonid indigo 30 Route: PO, l 18:40: Dosing Lorida 00 Weight 86.364, kg, ONCE, STAT, Start date: 10/12/17 12:40:00 CANE PACKER, Stop date: 10/12/17 12:40:00 CANE PACKER Zofran 2016- No 4 mg, Memoria 30 Route: l 17:30: IVP, Drug Willie 00 form: INJ, ONCE, Dosing Weight 86.364, kg, Priority: STAT, Start date: 10/12/17 11:30:00 CANE PACKER, Stop date: 10/12/17 11:30:00 CANE PACKER Zofran 2016-1 No 4 mg, Memoria -30 Route: l 17:30: IVP, Drug Lorida 00 form: INJ, ONCE, Dosing Weight 86.364, kg, Priority: STAT, Start date: 10/12/17 11:30:00 CANE PACKER, Stop date: 10/12/17 11:30:00 CANE PACKER Ondansetron 2016-11 No 4 mg, Memor ia 30 Route: l 15:18: IVP, ONCE, Dosing Weight 86.364, kg, Priority: STAT, Start date: 10/12/17 9:18:00 CANE PACKER, Stop date: 10/12/17 9:18:00 CANE PACKER Famotidine 2016-11 No 20 mg, Memor ia 30 Route: l 15:18: IVP, ONCE, Dosing Weight 86.364, kg, Priority: STAT, Start date: 10/12/17 9:18:00 CANE PACKER, Stop date: 10/12/17 9:18:00 CANE PACKER Sodium 2016-11 No 1,000 mL, Memori a Chloride -30 Infuse l 0.9% 15:18: Over: 1 Lorida (Bolus) IV 00 hr, Route: IV, ONCE, Priority: STAT, Dosing Weight 86.364 kg, Start date: 10/12/17 9:18:00 CANE PACKER, Stop date: 10/12/17 9:18:00 CANE PACKER Saline 2016-11 No Notes: Memoria Flush 0.9% 30 (Same as: l 15:18: BD Lorida Posiflush) Acetaminoph 2016-11 No 1 tab, Leonid indigo en 325 MG / 12-12 Route: PO, l Hydrocodone 15:18: Drug Form: Lorida Bitartrate 00 TAB, 10 MG Oral Dosing Tablet Weight [[place] 86.364, 10/325] kg, ONCE, STAT, Start date: 10/12/17 9:18:00 CANE PACKER, Stop date: 10/12/17 9:18:00 CANE PACKER Ondansetron 2016-11 No 4 mg, Memor ia 30 Route: l 15:18: IVP, ONCE, Dosing Weight 86.364, kg, Priority: STAT, Start date: 10/12/17 9:18:00 CANE PACKER, Stop date: 10/12/17 9:18:00 CANE PACKER Famotidine 2016-11 No 20 mg, Memor ia 30 Route: l 15:18: IVP, ONCE, Dosing Weight 86.364, kg, Priority: STAT, Start date: 10/12/17 9:18:00 CANE PACKER, Stop date: 10/12/17 9:18:00 CANE PACKER Sodium 2016-11 No 1,000 mL, Memori a Chloride 1-30 Infuse l 0.9% 15:18: Over: 1 Willie (Bolus) IV 00 hr, Route: IV, ONCE, Priority: STAT, Dosing Weight 86.364 kg, Start date: 10/12/17 9:18:00 CANE PACKER, Stop date: 10/12/17 9:18:00 CANE PACKER Saline 2016-11 No Notes: Memoria Flush 0.9% 30 (Same as: l 15:18: BD Lorida Posiflush) Acetaminoph 2016-11 No 1 tab, Leonid indigo en 325 MG / 12-12 Route: PO, l Hydrocodone 15:18: Drug Form: Willie Bitartrate 00 TAB, 10 MG Oral Dosing Tablet Weight [[place] 86.364, 10/325] kg, ONCE, STAT, Start date: 10/12/17 9:18:00 CANE PACKER, Stop date: 10/12/17 9:18:00 CANE PACKER Ondansetron 2014-0 Yes [facility] 4 MG 4-09 Instructio l Disintegrat 02:34: ns: Bartolome n ing Tablet 00 Dissolve [Zofran] tab under tongue Ondansetron Yes [facility] 4 MG 4-09 Instructio l Disintegrat 02:34: ns: Bartolome n ing Tablet 00 Dissolve [Zofran] tab under tongue Zofran ODT No 4 mg, Memori a 4-09 Route: PO, l 02:01: Drug form: Willie 00 TABDIS, ONCE, Dosing Weight 67.273, kg, Priority: STAT, Start date: 02/18/15 21:01:00, Stop date: 02/18/15 21:01:00 Tylenol 2014-0 No Notes: Do Memor ia 4-09 not exceed l 02:01: 4 gm/day. Willie (Same as: Tylenol) Zofran ODT 0 No 4 mg, Memori a 4-09 Route: PO, l 02:01: Drug form: Lorida 00 TABDIS, ONCE, Dosing Weight 67.273, kg, Priority: STAT, Start date: 02/18/15 21:01:00, Stop date: 02/18/15 21:01:00 Tylenol 2014-0 No Notes: Do Memor ia 4-09 not exceed l 02:01: 4 gm/day. Lorida 00 (Same as: Tylenol) Zofran ODT 2014-0 No 4 mg, Memori a 02-19 Route: PO, l 01:19: Drug form: Lorida 00 TABDIS, ONCE, Dosing Weight 67.273, kg, Priority: STAT, Start date: 02/18/15 20:19:00, Stop date: 02/18/15 20:19:00 Zofran ODT 2014-0 No 4 mg, Memori a 02-19 Route: PO, l 01:19: Drug form: Willie 00 TABDIS, ONCE, Dosing Weight 67.273, kg, Priority: STAT, Start date: 02/18/15 20:19:00, Stop date: 02/18/15 20:19:00 Motrin 2014-0 No 600 mg, Memoria 12-09 Route: PO, l 02:39: Drug form: Lorida 00 TAB, ONCE, Dosing Weight 47.727, kg, Priority: STAT, Start date: 12/08/14 20:39:00, Stop date: 12/08/14 20:39:00 Motrin 2014-0 No 600 mg, Memoria 12-09 Route: PO, l 02:39: Drug form: Lorida 00 TAB, ONCE, Dosing Weight 47.727, kg, Priority: STAT, Start date: 12/08/14 20:39:00, Stop date: 12/08/14 20:39:00 Immunizations Ordered Immunization Filled Immunization Date Status Commen ts Source Name Name diphtheria/pertussis 2022-05-30 Completed Leonid rial , acel/tetanus adult 18:16:00 [facility] diphtheria/pertussis 2022-05-30 Completed Leonid rial , acel/tetanus adult 18:16:00 [facility] Vital Signs Vital Name Observation Time Observation Value Comments Source Systolic blood 2022-09-17 119 mm[Hg] [facility] 07:00: [facility] Diastolic blood 2022-09-17 62 mm[Hg] [place] o f pressure 07:00:26 [facility] Heart rate 2022-09-17 73 /min [facility] 07[facility]00:26 [facility] Respiratory rate 2022-09-17 16 /min [facility] 07:00:26 [facility] Oxygen saturation 2022-09-17 99 /min [facility] in Arterial blood 07:00:26 [facility] by Pulse oximetry [place] Body temperature 2022-09-17 36.89 Bebe [facility] 05:07:00 [facility] Body height 2022-09-17 162.6 cm [facility] 05:07:00 [facility] Body weight 2022-09-17 108.863 kg [facility] 05:07:00 [facility] BMI 2022-09-17 41.20 kg/m2 [facility] 05:07:00 [facility] Systolic (mm Hg) 2022-05-30 [facility] rmann 13:00:00 Diastolic (mm Hg) 2022-05-30 [facility] ermann 13:00:00 Temperature Oral 2022-05-30 98.0 F [facility] rmann (F) 13:00:00 Heart Rate 2022-05-30 [facility] 13:00:00 Respitory Rate 2022-05-30 [facility] 13:00:00 Temperature Oral 2022-05-30 98.6 F [facility] rmann (F) 05:40:00 Heart Rate 2022-05-30 [facility] n 05:40:00 Respitory Rate 2022-05-30 [facility] 05:40:00 Systolic (mm Hg) 2022-05-30 [facility] rmann 05:40:00 Diastolic (mm Hg) 2022-05-30 [facility] ermann 05:40:00 Systolic (mm Hg) 2022-05-29 [facility] 21:17:00 Diastolic (mm Hg) 2022-05-29 [facility] 21:17:00 Heart Rate 2022-05-29 [facility] n 21:17:00 Respitory Rate 2022-05-29 [facility] 21:17:00 Temperature Oral 2022-05-29 98 F [facility] rmann (F) 21:17:00 Systolic (mm Hg) 2022-05-29 [facility] 17:30:00 Diastolic (mm Hg) 2022-05-29 [facility] 17:30:00 Heart Rate 2022-05-29 [facility] n 17:30:00 Respitory Rate 2022-05-29 [facility] 17:30:00 Temperature Oral 2022-05-29 98.2 F [facility] rmann (F) 14:00:00 Height 2022-05-27 162.56 cm [facility] 20:53:00 Weight 2022-05-27 [facility] 20:53:00 BMI Calculated 2022-05-27 [facility] 20:53:00 Height 2022-05-27 162.56 cm [facility] n 20:00:00 Weight 2022-05-27 [facility] 20:00:00 Height 2022-05-27 162.56 cm [facility] 18:58:00 BMI Calculated 2022-05-27 [facility] 18:58:00 Weight 2022-05-27 [facility] 18:58:00 Systolic (mm Hg) 2022-05-25 [facility] 19:15:00 Diastolic (mm Hg) 2022-05-25 [facility] ermann 19:15:00 Systolic (mm Hg) 2022-05-25 [facility] rmann 18:45:00 Diastolic (mm Hg) 2022-05-25 [facility] ermann 18:45:00 Height 2022-05-25 162.56 cm [facility] 17:51:00 BMI Calculated 2022-05-25 [facility] 17:51:00 Weight 2022-05-25 [facility] 17:51:00 Systolic (mm Hg) 2022-05-25 [facility] rmann 17:51:00 Diastolic (mm Hg) 2022-05-25 [facility] H ermann 17:51:00 Heart Rate 2022-05-25 [facility] 17:51:00 Respitory Rate 2022-05-25 [facility] 17:51:00 Temperature Oral 2022-05-25 98.8 F [facility] rmann (F) 17:51:00 Systolic (mm Hg) 2022-05-20 [facility] 00:35:00 Diastolic (mm Hg) 2022-05-20 [facility] ermann 00:35:00 Systolic (mm Hg) 2022-05-20 [facility] 00:30:00 Diastolic (mm Hg) 2022-05-20 [facility] ermann 00:30:00 Systolic (mm Hg) 2022-05-20 [facility] 00:25:00 Diastolic (mm Hg) 2022-05-20 [facility] ermann 00:25:00 BMI Calculated 2022-05-19 [facility] 22:59:00 Weight 2022-05-19 [facility] 22:59:00 Heart Rate 2022-05-19 [facility] 22:59:00 Respitory Rate 2022-05-19 [facility] 22:59:00 Temperature Oral 2022-05-19 98.9 F [facility] rmann (F) 22:59:00 Height 2022-05-19 162.56 cm [facility] 22:59:00 Systolic (mm Hg) 2022-05-06 [facility] rmann 21:30:00 Diastolic (mm Hg) 2022-05-06 [facility] ermann 21:30:00 Systolic (mm Hg) 2022-05-06 [facility] rmann 21:15:00 Diastolic (mm Hg) 2022-05-06 [facility] ermann 21:15:00 Systolic (mm Hg) 2022-05-06 [facility] rmann 21:00:00 Diastolic (mm Hg) 2022-05-06 [facility] ermann 21:00:00 Temperature Oral 2022-05-06 98.9 F [facility] rmann (F) 21:00:00 Respitory Rate 2022-05-06 [facility] 21:00:00 Height 2022-05-06 162.56 cm [facility] Bartolome n 20:36:00 BMI Calculated 2022-05-06 [facility] 20:36:00 Weight 2022-05-06 [facility] Bartolome n 20:36:00 Systolic (mm Hg) 2022-05-06 [facility] He rmann 08:00:00 Diastolic (mm Hg) 2022-05-06 [facility] ermann 08:00:00 Systolic (mm Hg) 2022-05-06 [facility] rmann 07:30:00 Diastolic (mm Hg) 2022-05-06 [facility] ermann 07:30:00 Height 2022-05-06 162.56 cm [facility] 06:53:00 BMI Calculated 2022-05-06 [facility] 06:53:00 Weight 2022-05-06 [facility] 06:53:00 Heart Rate 2022-05-06 [facility] 06:53:00 Respitory Rate 2022-05-06 [facility] 06:53:00 Temperature Oral 2022-05-06 97.2 F [facility] (F) 06:53:00 Systolic (mm Hg) 2022-04-30 [facility] 01:15:00 Diastolic (mm Hg) 2022-04-30 [facility] 01:15:00 Heart Rate 2022-04-30 [facility] 01:15:00 Height 2022-04-30 162.56 cm [facility] 00:42:00 BMI Calculated 2022-04-30 [facility] 00:42:00 Weight 2022-04-30 [facility] 00:42:00 Systolic (mm Hg) 2022-04-30 [facility] 00:42:00 Diastolic (mm Hg) 2022-04-30 [facility] 00:42:00 Heart Rate 2022-04-30 [facility] 00:42:00 Respitory Rate 2022-04-30 [facility] 00:42:00 Temperature Oral 2022-04-30 97.6 F [facility] rmann (F) 00:42:00 Height 2021-10-28 162.56 cm [facility] 18:01:00 BMI Calculated 2021-10-28 [facility] 18:01:00 Weight 2021-10-28 [facility] 18:01:00 Systolic (mm Hg) 2021-10-28 [facility] 18:01:00 Diastolic (mm Hg) 2021-10-28 [facility] 18:01:00 Heart Rate 2021-10-28 [facility] 18:01:00 Respitory Rate 2021-10-28 [facility] 18:01:00 Temperature Oral 2021-10-28 98.8 F [facility] rmann (F) 18:01:00 Systolic (mm Hg) 2021-05-18 [facility] 05:30:00 Diastolic (mm Hg) 2021-05-18 [facility] 05:30:00 Heart Rate 2021-05-18 [facility] 05:30:00 Respitory Rate 2021-05-18 [facility] 05:30:00 Temperature Oral 2021-05-18 98.7 F [facility] rmann (F) 05:30:00 Height 2021-05-18 162.56 cm [facility] 02:44:00 BMI Calculated 2021-05-18 [facility] 02:44:00 Weight 2021-05-18 [facility] 02:44:00 Systolic (mm Hg) 2021-05-18 [facility] 02:44:00 Diastolic (mm Hg) 2021-05-18 [facility] 02:44:00 Heart Rate 2021-05-18 [facility] 02:44:00 Respitory Rate 2021-05-18 [facility] 02:44:00 Temperature Oral 2021-05-18 98.6 F [facility] Boby rmann (F) 02:44:00 Temperature Oral 2021-05-13 99.7 F [facility] Boby rmann (F) 14:27:00 Heart Rate 2021-05-13 [facility] 14:27:00 Respitory Rate 2021-05-13 [facility] 14:27:00 Systolic (mm Hg) 2021-05-13 [facility] 14:27:00 Diastolic (mm Hg) 2021-05-13 [facility] 14:27:00 Height 2021-05-13 162.56 cm [facility] 13:22:00 BMI Calculated 2021-05-13 [facility] 13:22:00 Weight 2021-05-13 [facility] 13:22:00 Systolic (mm Hg) 2021-05-13 [facility] 13:22:00 Diastolic (mm Hg) 2021-05-13 [facility] 13:22:00 Heart Rate 2021-05-13 [facility] 13:22:00 Respitory Rate 2021-05-13 [facility] 13:22:00 Temperature Oral 2021-05-13 100.4 F [facility] Boby rmann (F) 13:22:00 Systolic (mm Hg) 2021-02-02 [facility] 20:00:00 Diastolic (mm Hg) 2021-02-02 [facility] 20:00:00 Heart Rate 2021-02-02 [facility] 20:00:00 Respitory Rate 2021-02-02 [facility] 20:00:00 Temperature Oral 2021-02-02 98.4 F [facility] Boby rmann (F) 20:00:00 Systolic (mm Hg) 2021-02-02 [facility] 19:00:00 Diastolic (mm Hg) 2021-02-02 [facility] H ermann 19:00:00 Systolic (mm Hg) 2021-02-02 [facility] 18:00:00 Diastolic (mm Hg) 2021-02-02 [facility] H ermann 18:00:00 Height 2021-02-02 162.56 cm Ashleigh Canan n 17:11:00 BMI Calculated 2021-02-02 [facility] 17:11:00 Weight 2021-02-02 [facility] 17:11:00 Heart Rate 2021-02-02 [facility] 17:11:00 Respitory Rate 2021-02-02 [facility] 17:11:00 Temperature Oral 2021-02-02 98.5 F [facility] rmann (F) 17:11:00 Temperature Oral 2018-09-25 98.2 F [facility] Boby rmann (F) 01:25:00 Systolic (mm Hg) 2018-09-25 [facility] He rmann 01:25:00 Diastolic (mm Hg) 2018-09-25 [facility] ermann 01:25:00 Respitory Rate 2018-09-25 [facility] 01:25:00 Systolic (mm Hg) 2018-09-25 [facility] He rmann 00:15:00 Diastolic (mm Hg) 2018-09-25 [facility] ermann 00:15:00 Respitory Rate 2018-09-25 [facility] 00:15:00 Systolic (mm Hg) 2018-09-24 [facility] 22:55:00 Diastolic (mm Hg) 2018-09-24 [facility] ermann 22:55:00 Respitory Rate 2018-09-24 [facility] 22:55:00 Heart Rate 2018-09-24 [facility] 21:19:00 Temperature Oral 2018-09-24 98 F [facility] Boby rmann (F) 21:19:00 Weight 2018-09-24 [facility] 21:19:00 BP Systolic 2018-07-31 114 mm[Hg] [facility] 13:27:00 BP Diastolic 2018-07-31 79 mm[Hg] [facility] 13:27:00 Height 2018-07-31 161.5 cm [facility] 13:27:00 Weight 2018-07-31 95.4 kg [facility] 13:27:00 Body Mass Index 2018-07-31 36.58 kg/m2 [facility] 13:27:00 Temperature 2018-07-31 97.1 [degF] [facility] 13:27:00 Heart Rate 2018-07-31 67 /min [facility] 13:27:00 BP Systolic 2018-03-15 115 mm[Hg] Location: RUE; [facility] 10:21:00 Position: Sitting BP Diastolic 2018-03-15 78 mm[Hg] Location: RUE; [facility] 10:21:00 Position: Sitting Height 2018-03-15 164.8 cm [facility] 10:21:00 Weight 2018-03-15 91.2 kg [facility] 10:21:00 Body Mass Index 2018-03-15 33.58 kg/m2 [facility] 10:21:00 Temperature 2018-03-15 97.8 [degF] Method: [facility] 10:21:00 Tympanic Heart Rate 2018-03-15 71 /min [facility] 10:21:00 BP Systolic 2017-12-19 116 mm[Hg] Location: RUE; [facility] 11:15:00 Position: Sitting BP Diastolic 2017-12-19 77 mm[Hg] Location: RUE; [facility] 11:15:00 Position: Sitting Height 2017-12-19 64.09 [in_us] [facility] 11:15:00 Weight 2017-12-19 191.80 [lb_av] [facility] 11:15:00 Body Mass Index 2017-12-19 32.83 kg/m2 [facility] 11:15:00 Heart Rate 2017-12-19 78 /min [facility] 11:15:00 BP Systolic 2017-12-12 109 mm[Hg] Location: RUE; [facility] 10:33:00 Position: Sitting BP Diastolic 2017-12-12 78 mm[Hg] Location: RUE; [facility] 10:33:00 Position: Sitting Height 2017-12-12 164 cm [facility] 10:33:00 Weight 2017-12-12 86.4 kg [facility] 10:33:00 Body Mass Index 2017-12-12 32.12 kg/m2 [facility] 10:33:00 Heart Rate 2017-12-12 76 /min [facility] 10:33:00 Temperature 2017-12-12 98.1 [degF] Method: [facility] 10:33:00 Tympanic Respitory Rate 2017-11-08 [facility] 20:15:00 Systolic (mm Hg) 2017-11-08 [facility] 20:15:00 Diastolic (mm Hg) 2017-11-08 [facility] 20:15:00 Respitory Rate 2017-11-08 [facility] 20:00:00 Systolic (mm Hg) 2017-11-08 [facility] 20:[facility]:00 Diastolic (mm Hg) 2017-11-08 [facility] 20:00:00 Respitory Rate 2017-11-08 [facility] 19:45:00 Systolic (mm Hg) 2017-11-08 [facility] 19:45:00 Diastolic (mm Hg) 2017-11-08 [facility] 19:45:00 Height 2017-11-08 160 cm [facility] 15:30:00 BMI Calculated 2017-11-08 [facility] 15:30:00 Weight 2017-11-08 [facility] 15:30:00 Heart Rate 2017-11-08 [facility] 15:30:00 Respitory Rate 2017-10-12 [facility] 19:37:00 Heart Rate 2017-10-12 [facility] 19:37:00 Systolic (mm Hg) 2017-10-12 [facility] 19:37:00 Diastolic (mm Hg) 2017-10-12 [facility] 19:37:00 Temperature Oral 2017-10-12 98.1 F [facility] (F) 19:37:00 Weight 2017-10-12 [facility] 14:59:00 Temperature Oral 2017-10-12 98.0 F [facility] (F) 14:59:00 Heart Rate 2017-10-12 [facility] 14:59:00 Respitory Rate 2017-10-12 [facility] 14:59:00 Systolic (mm Hg) 2017-10-12 [facility] 14:59:00 Diastolic (mm Hg) 2017-10-12 [facility] 14:59:00 Heart Rate 2015-06-18 [facility] 06:24:00 Respitory Rate 2015-06-18 [facility] 06:24:00 Systolic (mm Hg) 2015-06-18 [facility] 06:24:00 Diastolic (mm Hg) 2015-06-18 [facility] 06:24:00 Temperature Oral 2015-06-18 98.0 F [facility] (F) 06:24:00 Diastolic (mm Hg) 2015-06-18 [facility] 04:22:00 Systolic (mm Hg) 2015-06-18 [facility] 04:22:00 Heart Rate 2015-06-18 [facility] 04:22:00 Respitory Rate 2015-06-18 [facility] 04:22:00 Temperature Oral 2015-06-18 98.3 F [facility] (F) 04:22:00 BMI Calculated 2015-06-18 [facility] 02:50:00 Weight 2015-06-18 [facility] 02:50:00 Height 2015-06-18 165.1 cm [facility] 02:50:00 Temperature Oral 2015-06-18 98.3 F [facility] (F) 02:50:00 Respitory Rate 2015-06-18 [facility] 02:50:00 Heart Rate 2015-06-18 [facility] 02:50:00 Systolic (mm Hg) 2015-06-18 [facility] 02:50:00 Diastolic (mm Hg) 2015-06-18 [facility] 02:50:00 Respitory Rate 2015-02-19 [facility] 02:46:00 Heart Rate 2015-02-19 [facility] 02:46:00 Temperature Oral 2015-02-19 98.5 F [facility] (F) 02:46:00 Systolic (mm Hg) 2015-02-19 [facility] 02:46:00 Diastolic (mm Hg) 2015-02-19 [facility] 02:46:00 Weight 2015-02-19 [facility] 01:11:00 Respitory Rate 2015-02-19 [facility] 01:11:00 Temperature Oral 2015-02-19 98.7 F [facility] (F) 01:11:00 Heart Rate 2015-02-19 [facility] 01:11:00 Systolic (mm Hg) 2015-02-19 [facility] 01:11:00 Diastolic (mm Hg) 2015-02-19 [facility] 01:11:00 Systolic (mm Hg) 2014-12-09 [facility] 09:04:00 Diastolic (mm Hg) 2014-12-09 [facility] 09:04:00 Heart Rate 2014-12-09 [facility] 09:04:00 Respitory Rate 2014-12-09 [facility] 09:04:00 Temperature Oral 2014-12-09 98.6 F [facility] (F) 09:04:00 Heart Rate 2014-12-09 [facility] 06:05:00 Temperature Oral 2014-12-09 98.4 F Ashleigh Landis rmann (F) 06:05:00 Respitory Rate 2014-12-09 [facility] 06:05:00 Diastolic (mm Hg) 2014-12-09 [facility] 06:05:00 Systolic (mm Hg) 2014-12-09 [facility] 06:05:00 Respitory Rate 2014-12-09 [facility] 02:57:00 Heart Rate 2014-12-09 [facility] 02:57:00 Diastolic (mm Hg) 2014-12-09 [facility] 02:57:00 Systolic (mm Hg) 2014-12-09 [facility] 02:57:00 Temperature Oral 2014-12-09 98.2 F Ashleigh Landis [facility]mann (F) 02:57:00 Weight 2014-12-09 Ashleigh Canan n 00:17:00 Height 2014-12-09 162.56 cm Ashleigh Canan n 00:17:00 BMI Calculated 2014-12-09 [facility] 00:17:00 Procedures Procedure Date / Time Performing Clinician Source Performed CT ABDOMEN PELVIS W 2022-09-17 07:14:00 Vilma London [facility] CONTRAST [facility] [place] POCT TEST 2022-09-17 06:12:00 Vilma London [facility] LIPASE 2022-09-17 05:32:00 Vilma London [facility] COMP. METABOLIC PANEL 2022-09-17 05:32:00 Vilma London [facility] ([id number]) [facility] CBC WITH DIFF 2022-09-17 05:32:00 Vilma London [facility] URINALYSIS 2022-09-17 05:25:00 Vilma London [facility] NOTICE OF PRIVACY 2022-09-17 04:55:44 Doctor Unamarissa, [facility] PRACTICES [place] [facility] CONSENT/REFUSAL FOR 2022-09-17 04:55:18 Doctor Unassigned, [facility] DIAGNOSIS AND TREATMENT [place] [facility] [[facility]] CLOSTRIDIUM 2018-07-31 00:00:00 [facility] DIFFICILE TOXIN A AND B, EIA [[facility]] CULTURE, STOOL 2018-07-31 00:00:00 [facility] (CAMPYLOBACTER, SALMONELLA/SHIGELLA) [QL[facility]] CRYPTOSPORIDIUM AG, 2018-07-31 00:00:00 [facility] DFA [[facility]] OVA AND PARASITES, 2018-07-31 00:00:00 [facility] STOOL CONC/PERM SMEAR, 3 SPEC US Abdomen complete with 2018-07-31 00:00:00 [facility] Pelvis [id number] [[facility]] CALPROTECTIN, STOOL 2018-03-15 00:00:00 [facility] [[facility]] OVA AND PARASITES, 2018-03-15 00:00:00 [facility] STOOL CONC/PERM SMEAR, 3 SPEC MRI Brain w/wo contrast 2018-03-15 00:00:00 [facility] [id number] [[facility]] CALPROTECTIN, STOOL 2017-12-12 00:00:00 [facility] [[facility]] OVA AND PARASITES, 2017-12-12 00:00:00 [facility] STOOL CONC/PERM SMEAR, 3 SPEC MRI Brain w/wo contrast 2017-11-14 00:00:00 [place] [facility] [id number] Colonoscopy<sup>1</sup> 2017-11-08 06:00:00 Leonid nash Willie Esophagoscopy 2017-11-08 06:00:00 [facility] ECG-12 Lead 2017-10-24 00:00:00 [place] [facility] [QL[facility]] OVA AND PARASITES, 2017-10-24 00:00:00 [facility] STOOL CONC/PERM SMEAR, 3 SPEC [QLH] CALPROTECTIN, STOOL 2017-10-24 00:00:00 [place] [facility] US Renal [id number] 2017-10-24 00:00:00 [place] [facility] Myringotomy [facility] Operation on eustachian [facility] tube Ear operations [facility] History of Ear pressure [facility] cians equalization tube insertion Encounters Start End Encounter Admission Attending Care Care Encounter Source Date/Time Date/Time Type Type Clinicians Facility Department ID 2022-05-13 Outpatient [facility] [id number] [place] 11:07:49 [id number] [facility] 2022-05-08 Outpatient [facility] [id number] [place] 01:04:29 [id number] [facility] 2022-05-04 Outpatient [facility] [id number] [place] 13:26:05 [id number] [facility] 2022-04-26 Outpatient [facility] [id number] [place] 12:08:22 [id number] [facility] 2022-04-06 Outpatient [facility] [id number] [place] 12:01:44 [id number] [facility] 2022-03-31 Outpatient [facility] [id number] [place] 12:13:14 [id number] [facility] 2022-03-09 Inpatient WANDA, [facility] [facility] 10:19:37 STEF 2022-03-08 Outpatient [facility] [id number] [place] 23:25:02 [id number] [facility] 2022-01-26 Outpatient [facility] [id number] [place] 15:30:54 [facility] 2022-01-13 Outpatient [facility] [id number] [place] 14:05:26 [facility] 2022-09-17 2022-09-17 Emergency [facility] [id number] Univers 00:10:00 02:45:00 [facility] [id number] [facility] [id number] [facility] [id number] [address] 2022-09-17 2022-09-17 Emergency X SAROJ, [facility] ERT [id number] Univers 00:10:00 02:45:00 VILMA [facility] 2022-05-27 2022-05-30 Inpatient nullFlavo [facility] [id number] Memoria 18:53:17 19:56:[address] 2022-05-27 2022-05-[address] [facility] [id number] Memoria 18:53:17 19:56:[address] 2022-05-27 2022-05-30 Outpatient Alice [facility] [id number] 13:53:17 14:56:00 [facility] 14 2022-05-28 2022-05-28 Outpatient ALICE [facility] [id number] [place] 07:40:00 07:40:00 [facility] 2022-05-27 2022-05-27 Outpatient Alice [facility] [id number] 13:53:17 13:53:17 Suneet 14 2022-05-27 2022-05-27 Inpatient U ALICE, [id number] 15:50:00 13:53:00 SUNEET 2022-05-25 2022-05-25 Emergency nullFlavo [facility] [id number] Memoria 17:29:46 19:15:[address] 2022-05-25 2022-05-25 Emergency nullFlavo [facility] [id number] Memoria 17:29:46 19:15:[address] 2022-05-25 2022-05-25 Outpatient Alice, [facility] [id number] 12:29:46 14:15:00 Suneet 13 2022-05-25 2022-05-25 Emergency E ALICE, [id number] 12:29:00 14:15:00 [facility] 2022-05-19 2022-05-20 Emergency nullFlavo [facility] [id number] Memoria 22:55:10 00:52:[address] 2022-05-19 2022-05-20 Emergency nullFlavo [facility] [id number] Memoria 22:55:10 00:52:[address] 2022-05-19 2022-05-19 Outpatient Behnia, [facility] [id number] 17:55:10 19:52:00 [facility] 12 2022-05-19 2022-05-19 Emergency E BEHNIA, [id number] 17:55:00 19:52:00 [facility] 2022-05-06 2022-05-06 Emergency nullFlavo [facility] [id number] Memoria 20:34:25 21:48:[address] 2022-05-06 2022-05-06 Emergency nullFlavo [facility] [id number] Memoria 20:34:25 21:48:[address] 2022-05-062022-05-06 Outpatient Marilu [facility] [id number] 15:34:25 16:48:00 Arvin Jacobson 2022-05-06 2022-05-06 Emergency E MARILU [id number] 15:34:00 16:48:00 VICENTE JACOBSON 2022-05-06 2022-05-06 Emergency nullFlavo [facility] [id number] Memoria 06:43:21 08:30:00 r Willie [address] [place] [address] 2022-05-06 2022-05-06 Emergency nullFlavo [facility] [id number] Memoria 06:43:21 08:30:[address] 2022-05-06 2022-05-06 Outpatient Travis, [facility] [id number] 01:43:21 03:30:00 Deandre Arvind 10 2022-05-06 2022-05-06 Emergency E TRAVIS, [facility] 01:43:00 03:30:00 DEANDRE 2022-04-30 2022-04-30 Emergency nullFlavo [facility] [id number] Memoria 00:17:00 01:39:00 r Willie [address] [place] [address] 2022-04-30 2022-04-30 Emergency nullFlavo [facility] [id number] Memoria 00:17:00 01:39:00 r Willie [address] [place] [address] 2022-04-29 2022-04-29 Outpatient Alice [facility] [id number] 19:17:00 20:39:00 Suneet 09 2022-04-29 2022-04-29 Emergency E ALICE, [id number] 19:17:00 20:39:00 SUNEET 2021-10-28 2021-10-28 Emergency nullFlavo [facility] [id number] Memoria 17:39:53 22:10:00 hetal Tapia [address] [place] [address] 2021-10-28 2021-10-28 Emergency nullFlavo [facility] [id number] Memoria 17:39:53 22:10:00 r Lorida [address] [place] [address] 2021-10-28 2021-10-28 Outpatient Fadowole, MHPL MHPL [id number] 11:39:53 16:10:00 Telma [address] [place] 2021-10-28 2021-10-28 Emergency E FADOWOLE, MHBL MHBL [id number] MHBL 11:39:00 16:10:00 TELMA 2021-05-18 2021-05-18 Emergency nullFlavo [facility] [id number] Memoria 02:39:45 05:35:00 r [facility] 07 l ([facility]) Lorida 2021-05-18 2021-05-18 Emergency nullFlavo [facility] [id number] Memoria 02:39:45 05:35:00 [facility] 07 l ([facility]) Lorida 2021-05-17 2021-05-18 Outpatient Visagustínyafana MHSE MHSE [id number] 21:39:45 00:35:00 , Lolis 07 2021-05-17 2021-05-18 Emergency E VISTERRYA SE MHSE [id number] 21:39:00 00:35:00 , LOLIS العراقيa [facility] 2021-05-13 2021-05-13 Emergency nullFlavo [facility] 4524 [id number] Memoria 13:18:22 14:20:00 [facility] 06 l ([facility]) Lorida 2021-05-13 2021-05-13 Emergency nullFlavo [facility] [id number] Memoria 13:18:22 14:20:00 [facility] 06 l ([facility]) Lorida 2021-05-13 2021-05-13 Outpatient [place] MHSE MHSE [id number] 08:18:22 09:20:00 06 2021-05-13 2021-05-13 Emergency E [place] MHSE MHSE [id number] 08:18:00 09:20:00 Mi mir [facility] 2021-02-02 2021-02-02 Emergency nullFlavo [facility] [id number] Memoria 17:07:58 20:37:00 [facility] 05 l ([facility]) Lorida 2021-02-02 2021-02-[address] [facility] 4524 [id number] Memoria 17:07:58 20:37:00 [facility]- 05 l ([facility] 2021-02-02 2021-02-02 [place] [id number] 12:07:58 15:37:00 Ana Cristina 05 2021-02-02 2021-02-02 [place] [id number] 12:07:58 15:37:00 Ana Cristina 05 2021-02-02 2021-02-02 Emergency E JUAN VIZCAINO SE SE [id number] 12:07:00 15:37:00 [facility] 2018-09-24 2018-09-25 Emergency nullFlavo [facility] [id number] Memoria 21:16:00 01:35:[address] 2018-09-24 2018-09-[address] [facility] [id number] Memoria 21:16:00 01:35:[address] 2018-09-24 2018-09-24 Outpatient Herminia [facility] [id number] 15:16:00 19:35:00 [place] 2018-08-03 2018-08-04 Outpt Diag nullFlavo [facility] [id number] Memoria 16:12:00 04:59:00 Services r Outpatient 01 l Imaging [facility] 2018-08-03 2018-08-04 Outpt Diag nullFlavo [facility] [id number] Memoria 16:12:00 04:59:00 Services r Outpatient 01 l Imaging [facility] 2018-08-03 2018-08-03 Outpatient [place] [id number]. [id number]. [id number] 11:12:00 23:59:00 Edgar [id number] Wanda 3.615.24 5.24 Stacy 2018-07-31 2018-07-31 AppointBLAIR Pretty [facility] Pedi [id number] [place] 01:00:00 01:00:00 t; MD Alirio BECERRA P christal PINTO MD [facility] 2018-06-28 2018-06-28 [facility] [id number] [place] 13:20:00 13:20:00 t; AUGUSTIN BLAKE M.D. Physici JOYCE, ans M.D. 2018-05-15 2018-05-[id number] [place] 09:40:00 09:40:00 t; Vasquez MATIAS MELISSA, ans MELISSA, M.D. M.D. 2018-03-15 2018-03-15 [facility] [id number] [place] 09:40:00 09:40:00 t; JONATAN HERNÁNDEZ Gastroenter P WANDA Mann ology ans MELISSA, M.D. M.D. 2018-02-28 2018-02-28 [facility] [id number] [place] 10:30:00 10:30:00 t; SHERRY GUNN, Jewel Escobar M.D. 2017-12-19 2017-12-19 [facility] [id number] [place] 10:30:00 10:30:00 t; FELLOW Nephrology Phy sici PEDIATRIC, & ans FELLOW Hypertensio n 2017-12-12 2017-12-12 [facility] [id number] [place] 09:40:00 09:40:00 t; JONATAN HERNÁNDEZ Gastroenter P hyWANDA Bryant, saturnino AGUIRRE M.D. M.D. 2017-11-08 2017-11-[address] [facility] [id number] Memoria 14:47:00 05:59:[address] 2017-11-08 2017-11-09 Day nullFlavo [facility] [id number] Memoria 14:47:00 05:59:[address] 2017-11-08 2017-11-08 Outpatient [facility] [id number] 08:47:00 23:59:00 Diana Hernández 2017-10-27 2017-10-28 Outpt Diag nullFlavo [facility] [id number] Memoria 19:03:00 05:59:00 Services r Outpatient 00 l Imaging Lorida Carrier 2017-10-27 2017-10-28 Outpt Diag nullFlavo [facility] [id number] Memoria 19:03:00 05:59:00 Services r Outpatient 00 l Imaging Willie Carrier 2017-10-27 2017-10-27 Outpatient Jonatan MHOIP MHOIP [id number] 13:03:00 23:59:00 Ravi Hernández 2017-10-24 2017-10-[facility] [id number] [place] 10:00:00 10:00:00 t; Vasquez MATIAS MELISSA, tonio AGUIRRE M.D. M.D. 2017-10-12 2017-10-12 Emergency nullFlavo [facility] [id number] Memoria 14:56:00 19:39:00 r Lorida 00 l [facility] 2017-10-12 2017-10-12 Emergency nullFlavo [facility] [id number] Memoria 14:56:00 19:39:00 r Lorida 00 l [facility] 2017-10-12 2017-10-12 Outpatient Iheme, Fahad MHSE MHSE [id number] 08:56:00 13:39:00 U 00 2015-06-18 2015-06-18 EC nullFlavo [facility] [id number] Memoria 02:41:00 06:26:00 Emergency r Lorida 03 l [facility] 2015-06-18 2015-06-18 EC nullFlavo [facility] [id number] Memoria 02:41:00 06:26:00 Emergency r Lorida 03 l [facility] 2015-06-17 2015-06-18 Outpatient Sabrina, Latonya MHSE MHSE [id number] 21:41:00 01:26:00 Singh 03 2015-01-29 2015-02-28 OP Therapy nullFlavo SMR [id number] Memoria 13:01:00 04:59:00 Patients r Carrier 00 l [facility] 2015-01-29 2015-02-28 OP Therapy nullFlavo SMR [id number] Memoria 13:01:00 04:59:00 Patients r Carrier 00 l [facility] 2015-01-29 2015-02-27 Outpatient Brannon, Catarino 2.16.840. 2.16.840. 1. [id number] 08:01:00 23:59:00 Mikel [id number]. [id number] 3.615.0.1 5.0.631 09 7295-04-09 2015-02-19 [facility] [id number] Memoria 01:09:00 02:53:00 Emergency r Willie 02 [facility] 2015-02-19 2015-02-19 [facility] [id number] Memoria 01:09:00 02:53:00 Emergency r Lorida 02 [facility] 2015-02-18 2015-02-18 Outpatient Dagoberto, 2.16.840. 2.16.840.1. [id number] 20:09:00 21:53:00 Freddie [id number]. [id number] Emre 3.615.0.1 5.0.319 30 0127-01-27 2014-12-09 [facility] [id number] Memoria 00:15:00 09:27:00 Emergency r Lorida 26 [facility] 2014-12-09 2014-12-09 [facility] [id number] Memoria 00:15:00 09:27:00 Emergency r Lorida 26 [facility] 2014-12-08 2014-12-09 Outpatient Lila, 2.16.840. 2.16.840.1. [id number] 18:15:00 03:27:00 Grace Villalta [id number]. [id number] 3.615.0.1 5.0.101 01 Results Test Description Test Time Test Comments Results Result Comments Source POCT TEST 2022-09-17 06:12:00 Test Item Value Reference Range Interpretation Comme nts POCT PREG (test code = 1605) negative On board controls acceptable with C Line (test code = 3574) present POCT PREG LOT # (test code = 3575) [id number] POCT PREG TEST DATE (test code = 3576) Lab Interpretation (test code = 73543-1) [facility] (71182)2022-09-17 05:52:30 Test Item Value Reference Range Interpretation Comments NA (test code = 138 mmol/L 135-145 4308103818) K (test code = 4.1 mmol/L 3.5-5.0 9096411622) CL (test code = 106 mmol/L 98-108 3808675327) CO2 TOTAL (test code = 23 mmol/L 23-31 8413955984) AGAP (test code = 2-16 6781436156) BUN (test code = 11 mg/dL 7-23 8926255985) GLUCOSE (test code = 93 mg/dL 70-110 7606584199) CREATININE (test code = 0.49 mg/dL 0.50-1.04 L 4358233052) TOTAL BILI (test code = 0.7 mg/dL 0.1-1.7 5868362170) CALCIUM (test code = 9.2 mg/dL 8.6-10.6 9920992539) T PROTEIN (test code = 7.1 g/dL 6.3-8.2 2150905822) ALBUMIN (test code = 4.2 g/dL 3.5-5.0 7298505880) ALK PHOS (test code = 75 U/L 34-122 7751452897) ALTv (test code = 18 U/L 5-35 1742-6) AST(SGOT) (test code = 28 U/L 13-40 1546926260) eGFR (test code = mL/min/1.73m2 8018063809) SID (test code = SID) Association of Glomerular Filtration Rate (GFR) and Staging of Kidney Disease* + --+ --+ ------+| GFR (mL/min/1.73 m2) ?| With Kidney Damage ?| ?Without Kidney Damage+ --------+ --------+ +| ?>90 ?| ?Stage one ?| ? Normal ?+ ---+ ---+ -------+| ?60-89 ?| ?Stage two ?| ? Decreased GFR ? + --+ --+ ------+| ?30-59 ?| ?Stage three ?| ? Stage three ? + --+ --+ ------+| ?15-29 ?| ?Stage four ? | ? Stage four ?+ ---+ ---+ -------+| ?<15 (or dialysis) ? ?| ?Stage five ? | ? Stage five ?+ ---+ ---+ -------+ *Each stage assumes the associated GFR level has been in effect for at least three months. ?Stages 1 to 5, with or without kidney disease, indicate chronic kidney disease. Notes: Determination of stages one and two (with eGFR >59mL/min/1.73 m2) requires estimation of kidney damage for at least three months as defined by structural or functional abnormalities of the kidney, manifested by either:Pathological abnormalities or Markers of kidney damage (including abnormalities in the composition of the blood or urine or abnormalities in imaging tests). Lab Interpretation Abnormal (test code = 77517-0) [facility] 05[facility]51[facility]54 Test Item Value Reference Range Interpretation Comments LIPASE (test code = 0893067929) 78 U/L 0-220 Lab Interpretation (test code = Normal 65410-1) [facility] WITH [id number] 05:39:53 Test Item Value Reference Range Interpretation Comments WBC (test code = See_Comment [Automated 7745-2) message] The sy stem which generated this result transmitted reference range : 4.30 - 11.10 10*3/?L. The reference range was not used to interpret this result as normal/abnormal . RBC (test code = See_Comment [Automated 593-8) message] The sy stem which generated this result transmitted reference range : 3.93 - 5.25 10*6/?L. The reference range was not used to interpret this result as normal/abnormal . HGB (test code = 12.6 g/dL 11.6-15.0 718-7) HCT (test code = 36.7 % 35.7-45.2 4544-3) MCV (test code = 86.6 fL 80.6-95.5 787-2) MCH (test code = 29.7 pg 25.9-32.8 785-6) MCHC (test code = 34.3 g/dL 31.6-35.1 786-4) RDW-SD (test code = 38.5 fL 39.0-49.9 L 70412-9) RDW-CV (test code = 12.2 % 12.0-15.5 788-0) PLT (test code = See_Comment [Automated 777-3) message] The sy stem which generated this result transmitted reference range : 166 - 358 10*3/ ?L. The reference r malcolm was not used to interpret this result as normal/abnormal . MPV (test code = 10.8 fL 9.5-12.9 62925-5) NRBC/100 WBC (test See_Comment [Automat ed code = 2401518107) message] The system which generated this result transmitted reference range : 0.0 - 10.0 /100 WBCs. The refer ence range was not u sed to interpret th is result as normal/abnormal . NRBC x10^3 (test code See_Comment [Auto mated = 5387362153) message] The s ystem which generated this result transmitted reference range : 10*3/?L. The reference range was not used to interpret this result as normal/abnormal . GRAN MAT (NEUT) % 60.2 % (test code = 770-8) IMM GRAN % (test code 0.30 % = 5042724777) LYMPH % (test code = 31.0 % 736-9) MONO % (test code = 6.1 % 5905-5) EOS % (test code = 1.9 % 713-8) BASO % (test code = 0.5 % 706-2) GRAN MAT x10^3(ANC) 6.15 10*3/uL 1.88-7.09 (test code = 9061258345) IMM GRAN x10^3 (test 0.03 10*3/uL 0.00-0.06 code = 2873933048) LYMPH x10^3 (test code 3.16 10*3/uL 1.32-3.29 = 731-0) MONO x10^3 (test code 0.62 10*3/uL 0.33-0.92 = 742-7) EOS x10^3 (test code = 0.19 10*3/uL 0.03-0.39 711-2) BASO x10^3 (test code 0.05 10*3/uL 0.01-0.07 = 704-7) Lab Interpretation Abnormal (test code = 98824-6) [facility] 06:29:00 Test Item Value Reference Range Interpretation Comments Hgb (test code = Hgb) 10.6 12.0-16.0 [facility]21[facility]-65 06:29:00 Test Item Value Reference Range Interpretation Comments Hct (test code = Hct) 30.8 36.0-48.0 [place] [id number] 06:29:00 Test Item Value Reference Range Interpretation Comments Hgb (test code = Hgb) 10.6 12.0-16.0 [place] [id number] 06:29:00 Test Item Value Reference Range Interpretation Comments Hct (test code = Hct) 30.8 36.0-48.0 [place] 151432-07-16 02:21:00 Test Item Value Reference Range Interpretation Comments Glucose Lvl (test code = Glucose Lvl) 62 70-99 [place] [id number] 02:21:00 Test Item Value Reference Range Interpretation Comments BUN (test code = BUN) 7 7-22 [place] [id number] 02:21:00 Test Item Value Reference Range Interpretation Comments Creatinine Lvl (test code = Creatinine 0.50 0.50-1.40 Lvl) [place] [id number] 02:21:00 Test Item Value Reference Range Interpretation Comments Sodium Lvl (test code = Sodium Lvl) 139 135-145 [place] 151432-07-16 02:21:00 Test Item Value Reference Range Interpretation Comments Potassium Lvl (test code = Potassium 3.5 3.5-5.1 Lvl) [place] 151432-07-16 02:21:00 Test Item Value Reference Range Interpretation Comments Chloride Lvl (test code = Chloride Lvl) 109 95-109 [place] 151432-07-16 02:21:00 Test Item Value Reference Range Interpretation Comments CO2 (test code = CO2) 21 24-32 [place] 151432-07-16 02:21:00 Test Item Value Reference Range Interpretation Comments Calcium Lvl (test code = Calcium Lvl) 9.6 8[facility]10.5 [id number] 02:21:00 Test Item Value Reference Range Interpretation Comments Total Protein (test code = Total 7.2 6.4-8.4 Protein) [place] 151432-07-16 02:21:00 Test Item Value Reference Range Interpretation Comments Albumin Lvl (test code = Albumin Lvl) 2.9 3.5-5.0 [facility] [id number] 02:21:00 Test Item Value Reference Range Interpretation Comments ALT (test code = ALT) 20 See_Comment [Auto mated message] The system which ge nerated this result transmit perico reference range : <=65. The reference range was not used to interpr et this result as sincere l/abnormal. [facility] [id number] 02:21:00 Test Item Value Reference Range Interpretation Comments AST (test code = AST) 16 See_Comment [Auto mated message] The system which ge nerated this result transmit perico reference range : <=37. The reference range was not used to interpr et this result as sincere l/abnormal. [facility] [id number] 02:21:00 Test Item Value Reference Range Interpretation Comments Alk Phos (test code = Alk Phos) 180 39-136 [facility] [id number] 02:21:00 Test Item Value Reference Range Interpretation Comments Bili Total (test code = Bili Total) 0.5 0.2-1.3 [facility] [id number] 02:21:00 Test Item Value Reference Range Interpretation Comments AGAP (test code = AGAP) 12.5 10.0-20.0 [facility] [id number] 02:21:00 Test Item Value Reference Range Interpretation Comments B/C Ratio (test code = B/C Ratio) 14 1 6-25 [facility] [id number] 02:21:00 Test Item Value Reference Range Interpretation Comments Globulin (test code = Globulin) 4.3 2.7-4.2 [facility] [id number] 02:21:00 Test Item Value Reference Range Interpretation Comments A/G Ratio (test code = A/G Ratio) 0.7 1 0.7-1.6 [facility] [id number] 02:21:00 Test Item Value Reference Range Interpretation Comments eGFR (test code = eGFR) 136 [place] 210322-07-16 02:21:00 Test Item Value Reference Range Interpretation Comments U Creatinine (test code = U Creatinine) 39.60 [place] 210322-07-16 02:21:00 Test Item Value Reference Range Interpretation Comments U Protein (test code = U Protein) 11.1 [place] 35066-07-16 02:21:00 Test Item Value Reference Range Interpretation Comments U Prot/Creat (test code = U 0.28 1 Prot/Creat) [place] 151432-07-16 02:21:00 Test Item Value Reference Range Interpretation Comments Glucose Lvl (test code = Glucose Lvl) 62 70-99 [place] 151432-07-16 02:21:00 Test Item Value Reference Range Interpretation Comments BUN (test code = BUN) 7 7-22 [place] 151432-07-16 02:21:00 Test Item Value Reference Range Interpretation Comments Creatinine Lvl (test code = Creatinine 0.50 0.50-1.40 Lvl) [place] 151432-07-16 02:21:00 Test Item Value Reference Range Interpretation Comments Sodium Lvl (test code = Sodium Lvl) 139 135-145 [place] 151432-07-16 02:21:00 Test Item Value Reference Range Interpretation Comments Potassium Lvl (test code = Potassium 3.5 3.5-5.1 Lvl) [place] 151432-07-16 02:21:00 Test Item Value Reference Range Interpretation Comments Chloride Lvl (test code = Chloride Lvl) 109 95-109 [place] 151432-07-16 02:21:00 Test Item Value Reference Range Interpretation Comments CO2 (test code = CO2) 21 24-32 [place] 151432-07-16 02:21:00 Test Item Value Reference Range Interpretation Comments Calcium Lvl (test code = Calcium Lvl) 9.6 8.5-10.5 [place] 151432-07-16 02:21:00 Test Item Value Reference Range Interpretation Comments Total Protein (test code = Total 7.2 6.4-8.4 Protein) [place] 151432-07-16 02:21:00 Test Item Value Reference Range Interpretation Comments Albumin Lvl (test code = Albumin Lvl) 2.9 3.5-5.0 [facility] [id number] 02:21:00 Test Item Value Reference Range Interpretation Comments ALT (test code = ALT) 20 See_Comment [Auto mated message] The system which ge nerated this result transmit perico reference range : <=65. The reference range was not used to interpr et this result as sincere l/abnormal. [facility] [id number] 02:21:00 Test Item Value Reference Range Interpretation Comments AST (test code = AST) 16 See_Comment [Auto mated message] The system which ge nerated this result transmit perico reference range : <=37. The reference range was not used to interpr et this result as sincere l/abnormal. [facility] [id number] 02:21:00 Test Item Value Reference Range Interpretation Comments Alk Phos (test code = Alk Phos) 180 39-136 [facility] [id number] 02:21:00 Test Item Value Reference Range Interpretation Comments Bili Total (test code = Bili Total) 0.5 0.2-1.3 [facility] [id number] 02:21:00 Test Item Value Reference Range Interpretation Comments AGAP (test code = AGAP) 12.5 10.0-20.0 [facility] [id number] 02:21:00 Test Item Value Reference Range Interpretation Comments B/C Ratio (test code = B/C Ratio) 14 1 6-25 [facility] [id number] 02:21:00 Test Item Value Reference Range Interpretation Comments Globulin (test code = Globulin) 4.3 2.7-4.2 [facility] [id number] 02:21:00 Test Item Value Reference Range Interpretation Comments A/G Ratio (test code = A/G Ratio) 0.7 1 0.7-1.6 [facility] [id number] 02:21:00 Test Item Value Reference Range Interpretation Comments eGFR (test code = eGFR) 136 [facility] [id number] 02:21:00 Test Item Value Reference Range Interpretation Comments U Creatinine (test code = U Creatinine) 39.60 [facility]2022-07-16 02:21:00 Test Item Value Reference Range Interpretation Comments U Protein (test code = U Protein) 11.1 [place] 210322-07-16 02:21:00 Test Item Value Reference Range Interpretation Comments U Prot/Creat (test code = U 0.28 1 Prot/Creat) [facility]XkwohdxLFRVWPIEDL7444-83-42 21:33:00 Test Item Value Reference Range Interpretation Comments Fibrinogen Lvl (test code = Fibrinogen 552 230-510 Lvl) [facility] CampusTvxnnlyRUVLUCLPAA6371-76-71 21:33:00 Test Item Value Reference Range Interpretation Comments Fibrinogen Lvl (test code = Fibrinogen 552 230-510 Lvl) [facility] CampusJoqgnmpYPRRCNYIPK5629-55-07 21:32:00 Test Item Value Reference Range Interpretation Comments PT (test code = PT) 12.6 s 12.0-14.7 [facility] CampusJprkscqVWXWOFSQXX6427-34-94 21:32:00 Test Item Value Reference Range Interpretation Comments INR (test code = INR) 0.95 1 0.85-1.17 [facility] CampusDkqvizsZKUJHSMMMU2076-06-15 21:32:00 Test Item Value Reference Range Interpretation Comments PTT (test code = PTT) 27.2 s 22.9-35.8 [facility] CampusOfhpeclOIRVMKIMKE8000-08-42 21:32:00 Test Item Value Reference Range Interpretation Comments PT (test code = PT) 12.6 s 12.0-14.7 [facility] [id number] 21:32:00 Test Item Value Reference Range Interpretation Comments INR (test code = INR) 0.95 1 0.85-1.17 [facility] CampusHekkybqUBLXPGMUPE3162-56-47 21:32:00 Test Item Value Reference Range Interpretation Comments PTT (test code = PTT) 27.2 s 22.9-35.8 [facility] [id number] 21:31:00 Test Item Value Reference Range Interpretation Comments ABO/Rh (test code = ABO/Rh) A POS [facility] [id number] 21:31:00 Test Item Value Reference Range Interpretation Comments Antibody Scrn (test Negative (05/27/22 4:31 code = Antibody Scrn) PM) [facility] CampusJcybcnoYGHWDDLQXH9927-14-26 21:31:00 Test Item Value Reference Range Interpretation Comments WBC (test code = WBC) 13.4 3.7-10.4 [facility] CampusPdhiqgiRGRPEHGFEU2996-47-94 21:31:00 Test Item Value Reference Range Interpretation Comments RBC (test code = RBC) 4.09 4.20-5.40 [facility] CampusCuqlzwcVBTEANGHFS2100-89-12 21:31:00 Test Item Value Reference Range Interpretation Comments Hgb (test code = Hgb) 12.2 12.0-16.0 [facility] CampusRdvevlhORUCBQMRAI8458-58-61 21:31:00 Test Item Value Reference Range Interpretation Comments Hct (test code = Hct) 35.9 36.0-48.0 [facility] CampusDistervJQKZOPXIEN6730-00-76 21:31:00 Test Item Value Reference Range Interpretation Comments MCV (test code = MCV) 87.8 80.0-98.0 [facility] Camp[id number] 21:31:00 Test Item Value Reference Range Interpretation Comments MCH (test code = MCH) 29.9 pg 27.0-31.0 [facility] Camp[id number] 21:31:00 Test Item Value Reference Range Interpretation Comments MCHC (test code = MCHC) 34.0 32.0-36.0 [facility] CampusCujgzfgWIPFIJFSNI9616-74-69 21:31:00 Test Item Value Reference Range Interpretation Comments RDW (test code = RDW) 13.7 11.5-14.5 [facility] C[id number] 21:31:00 Test Item Value Reference Range Interpretation Comments Platelet (test code = Platelet) 177 133-450 [facility] CampusZjtzxvpETDURTYEMB5140-35-78 21:31:00 Test Item Value Reference Range Interpretation Comments MPV (test code = MPV) 10.1 7.4-10.4 [facility] [id number] 21:31:00 Test Item Value Reference Range Interpretation Comments Segs (test code = Segs) 80.1 45.0-75.0 [facility] CampusKmqmvgfKLNQDJLHRX7797-58-28 21:31:00 Test Item Value Reference Range Interpretation Comments Lymphocytes (test code = Lymphocytes) 13.8 20.0-40.0 [facility] C[id number] 21:31:00 Test Item Value Reference Range Interpretation Comments Monocytes (test code = Monocytes) 5.7 2.0-12.0 [facility] [id number] 21:31:00 Test Item Value Reference Range Interpretation Comments Eosinophils (test code = 0.2 See_Comment [A utomated message] The Eosinophils) system which ge nerated this result tra nsmitted reference range : <=4.0. The reference r malcolm was not used to int erpret this result as normal/abnormal . [facility] CampusSkaipfdPXHPHKKZVP1875-29-03 21:31:00 Test Item Value Reference Range Interpretation Comments Basophils (test code = 0.2 See_Comment [Aut omated message] The Basophils) system which ge nerated this result tra nsmitted reference range : <=1.0. The reference r malcolm was not used to int erpret this result as normal/abnormal . [facility] CampusIqdrkgrCUMSLPTXTL6310-05-80 21:31:00 Test Item Value Reference Range Interpretation Comments Neutrophils # (test code = Neutrophils 10.7 1.5-8.1 #) [facility] CampusAemsxzmDRZONAGNLA1489-55-64 21:31:00 Test Item Value Reference Range Interpretation Comments Lymphocytes # (test code = Lymphocytes 1.8 1.0-5.5 #) [facility] CampusNqbanpdDSZSWHDDKB7809-49-83 21:31:00 Test Item Value Reference Range Interpretation Comments Monocytes # (test code 0.8 See_Comment [Aut omated message] The = Monocytes #) system which generated this result tra nsmitted reference range : <=0.8. The reference r malcolm was not used to int erpret this result as normal/abnormal . [facility] CenterTjqvhhwNIICEMCWAD1540-89-37 21:31:00 Test Item Value Reference Range Interpretation Comments Hep Bs Ag (test code Negative *NA*(05/27/22 = Hep Bs Ag) 4:31 PM) [facility] CenterJiwjbwaXBCXCHKCVR3938-37-65 21:31:00 Test Item Value Reference Range Interpretation Comments HIV Ag/Ab 4th Gen Negative *NA*(05/27/22 (test code = HIV 4:31 PM) Ag/Ab 4th Gen) [facility] CenterVglaocpQMLBHHNHCV9891-52-86 21:31:00 Test Item Value Reference Range Interpretation Comments Treponemal Ab (test code Non-Reactive = Treponemal Ab) *NA*(05/27/22 4:31 PM) [facility] [id number] 21:31:00 Test Item Value Reference Range Interpretation Comments ABO/Rh (test code = ABO/Rh) A POS [facility] [id number] 21:31:00 Test Item Value Reference Range Interpretation Comments Antibody Scrn (test Negative (05/27/22 4:31 code = Antibody Scrn) PM) [facility] CampusBoanwemFRJGYRSFOW8020-51-03 21:31:00 Test Item Value Reference Range Interpretation Comments WBC (test code = WBC) 13.4 3.7-10.4 [facility] CampusEkamgjuTZKQPVNYCF3141-88-39 21:31:00 Test Item Value Reference Range Interpretation Comments RBC (test code = RBC) 4.09 4.20-5.40 [facility] CampusJokponkSCSSIFRYNC6638-42-95 21:31:00 Test Item Value Reference Range Interpretation Comments Hgb (test code = Hgb) 12.2 12.0-16.0 [facility] CampusBmiaschAVPPEASTWV1311-13-55 21:31:00 Test Item Value Reference Range Interpretation Comments Hct (test code = Hct) 35.9 36.0-48.0 [facility] CampusBhgfynoEVUDJVSLFE6994-01-27 21:31:00 Test Item Value Reference Range Interpretation Comments MCV (test code = MCV) 87.8 80.0-98.0 [facility] CampusGwkapfqBEVEWWEDOR7319-92-45 21:31:00 Test Item Value Reference Range Interpretation Comments MCH (test code = MCH) 29.9 pg 27.0-31.0 [facility] CampusGanszsbEUPCULNFKH6631-24-64 21:31:00 Test Item Value Reference Range Interpretation Comments MCHC (test code = MCHC) 34.0 32.0-36.0 [facility] CampusAllhwyyEQHTAKRXHW5636-96-29 21:31:00 Test Item Value Reference Range Interpretation Comments RDW (test code = RDW) 13.7 11.5-14.5 [facility] CampusEmzwmfpFOWADFIQHS6962-40-76 21:31:00 Test Item Value Reference Range Interpretation Comments Platelet (test code = Platelet) 177 133-450 [facility] CampusMiembfaLXADHDZWXU2505-22-04 21:31:00 Test Item Value Reference Range Interpretation Comments MPV (test code = MPV) 10.1 7.4-10.4 [facility] CampusSfeaaqkAOSTBWTPAF1927-01-28 21:31:00 Test Item Value Reference Range Interpretation Comments Segs (test code = Segs) 80.1 45.0-75.0 [place] 738072-07-15 21:31:00 Test Item Value Reference Range Interpretation Comments Lymphocytes (test code = Lymphocytes) 13.8 20.0-40.0 [place] 738072-07-15 21:31:00 Test Item Value Reference Range Interpretation Comments Monocytes (test code = Monocytes) 5.7 2.0-12.0 [facility] CampusCxuqfgfKLOKMWOJWD1113-68-68 21:31:00 Test Item Value Reference Range Interpretation Comments Eosinophils (test code = 0.2 See_Comment [A utomated message] The Eosinophils) system which ge nerated this result tra nsmitted reference range : <=4.0. The reference r malcolm was not used to int erpret this result as normal/abnormal . [facility] CampusMmxumcxYQBVUTOYBC6344-55-82 21:31:00 Test Item Value Reference Range Interpretation Comments Basophils (test code = 0.2 See_Comment [Aut omated message] The Basophils) system which ge nerated this result tra nsmitted reference range : <=1.0. The reference r malcolm was not used to int erpret this result as normal/abnormal . [facility] CampusFrniuilIHILPQFYVI3570-94-55 21:31:00 Test Item Value Reference Range Interpretation Comments Neutrophils # (test code = Neutrophils 10.7 1.5-8.1 #) [facility] CampusPanldprFNGBAORUFP9479-19-33 21:31:00 Test Item Value Reference Range Interpretation Comments Lymphocytes # (test code = Lymphocytes 1.8 1.0-5.5 #) [place] 738072-07-15 21:31:00 Test Item Value Reference Range Interpretation Comments Monocytes # (test code 0.8 See_Comment [Aut omated message] The = Monocytes #) system which generated this result tra nsmitted reference range : <=0.8. The reference r malcolm was not used to int erpret this result as normal/abnormal . [facility] CenterVhrwabqYPDIVHQPUO2704-10-07 21:31:00 Test Item Value Reference Range Interpretation Comments Hep Bs Ag (test code Negative *NA*(05/27/22 = Hep Bs Ag) 4:31 PM) [facility] CenterCuyatvgNMBPIFZJGK5129-73-98 21:31:00 Test Item Value Reference Range Interpretation Comments HIV Ag/Ab 4th Gen Negative *NA*(05/27/22 (test code = HIV 4:31 PM) Ag/Ab 4th Gen) [facility] CenterQgxvemtVYONSGXLRW4202-29-51 21:31:00 Test Item Value Reference Range Interpretation Comments Treponemal Ab (test code Non-Reactive = Treponemal Ab) *NA*(05/27/22 4:31 PM) [facility] CenterUtqydzzASLMCCNRWD9682-61-30 19:14:00 Test Item Value Reference Range Interpretation Comments Coronavirus (COVID-19) Detected MILAGROS (test code = 2*ABN*(05/27/22 2:14 Coronavirus (COVID-19) PM) MILAGROS) [facility] CenterYhpecehDIBTRWRTIY8448-54-31 19:14:00 Test Item Value Reference Range Interpretation Comments Coronavirus (COVID-19) Detected MILAGROS (test code = 2*ABN*(05/27/22 2:14 Coronavirus (COVID-19) PM) MILAGROS) [facility] AND [id number] 01:25:00 Test Item Value Reference Range Interpretation Comments UA Color (test code = Yellow *NA*(04/29/22 UA Color) 8:25 PM) [facility] AND [id number] 01:25:00 Test Item Value Reference Range Interpretation Comments UA Turbidity (test code Slight *ABN*(04/29/22 = UA Turbidity) 8:25 PM) [facility] AND [id number] 01:25:00 Test Item Value Reference Range Interpretation Comments UA Spec Grav (test code = UA Spec 1.018 1 Grav) [facility] AND [id number] 01:25:00 Test Item Value Reference Range Interpretation Comments UA pH (test code = UA pH) 6.0 1 5.0-8.0 [facility] AND [id number] 01:25:00 Test Item Value Reference Range Interpretation Comments UA Protein (test code = UA Negative mg/dL Protein) [facility] AND [id number] 01:25:00 Test Item Value Reference Range Interpretation Comments UA Glucose (test code = UA Negative mg/dL Glucose) [facility] AND [id number] 01:25:00 Test Item Value Reference Range Interpretation Comments UA Ketones (test code = UA Negative mg/dL Ketones) [facility] [id number] 01:25:00 Test Item Value Reference Range Interpretation Comments UA Bili (test code = Negative *NA*(04/29/22 UA Bili) 8:25 PM) [facility] AND [id number] 01:25:00 Test Item Value Reference Range Interpretation Comments UA Blood (test code = Negative (04/29/22 8:25 UA Blood) PM) [facility] AND [id number] 01:25:00 Test Item Value Reference Range Interpretation Comments UA Urobilinogen (test code = UA no gt 0.1-1.0 Urobilinogen) [facility] AND [id number] 01:25:00 Test Item Value Reference Range Interpretation Comments UA Nitrite (test code Negative (04/29/22 8:25 = UA Nitrite) PM) [facility] AND [id number] 01:25:00 Test Item Value Reference Range Interpretation Comments UA Leuk Est (test code Small *ABN*(04/29/22 = UA Leuk Est) 8:25 PM) [facility] AND [id number] 01:25:00 Test Item Value Reference Range Interpretation Comments UA Sq Epi (test code = UA Sq Epi) Few /LPF [facility] AND [id number] 01:25:00 Test Item Value Reference Range Interpretation Comments UA WBC (test code = 6 See_Comment [Automa perico message] The UA WBC) system which ge nerated this result transmit perico reference range : <=5. The reference range was not used to interpr et this result as sincere l/abnormal. [facility] [id number] 01:25:00 Test Item Value Reference Range Interpretation Comments UA RBC (test code = no gt See_Comment [Automa perico message] The UA RBC) system which ge nerated this result transmit perico reference range : <=2. The reference range was not used to interpr et this result as sincere l/abnormal. [facility] [id number] 01:25:00 Test Item Value Reference Range Interpretation Comments UA Bacteria (test code = UA Occasional /HPF Bacteria) [facility] AND [id number] 01:25:00 Test Item Value Reference Range Interpretation Comments UA Mucus (test code = UA Mucus) Few /LPF [facility] AND [id number] 01:25:00 Test Item Value Reference Range Interpretation Comments UA Color (test code = Yellow *NA*(04/29/22 UA Color) 8:25 PM) [facility] AND [id number] 01:25:00 Test Item Value Reference Range Interpretation Comments UA Turbidity (test code Slight *ABN*(04/29/22 = UA Turbidity) 8:25 PM) [facility] AND [id number] 01:25:00 Test Item Value Reference Range Interpretation Comments UA Spec Grav (test code = UA Spec 1.018 1 Grav) [facility] AND [id number] 01:25:00 Test Item Value Reference Range Interpretation Comments UA pH (test code = UA pH) 6.0 1 5.0-8.0 [facility] AND [id number] 01:25:00 Test Item Value Reference Range Interpretation Comments UA Protein (test code = UA Negative mg/dL Protein) [facility] AND [id number] 01:25:00 Test Item Value Reference Range Interpretation Comments UA Glucose (test code = UA Negative mg/dL Glucose) [facility] AND [id number] 01:25:00 Test Item Value Reference Range Interpretation Comments UA Ketones (test code = UA Negative mg/dL Ketones) [facility] AND [id number] 01:25:00 Test Item Value Reference Range Interpretation Comments UA Bili (test code = Negative *NA*(04/29/22 UA Bili) 8:25 PM) [facility] AND [id number] 01:25:00 Test Item Value Reference Range Interpretation Comments UA Blood (test code = Negative (04/29/22 8:25 UA Blood) PM) [facility] AND [id number] 01:25:00 Test Item Value Reference Range Interpretation Comments UA Urobilinogen (test code = UA no gt 0.1-1.0 Urobilinogen) [facility] AND [id number] 01:25:00 Test Item Value Reference Range Interpretation Comments UA Nitrite (test code Negative (04/29/22 8:25 = UA Nitrite) PM) [facility] AND [id number] 01:25:00 Test Item Value Reference Range Interpretation Comments UA Leuk Est (test code Small *ABN*(04/29/22 = UA Leuk Est) 8:25 PM) [facility] AND [id number] 01:25:00 Test Item Value Reference Range Interpretation Comments UA Sq Epi (test code = UA Sq Epi) Few /LPF [facility] AND [id number] 01:25:00 Test Item Value Reference Range Interpretation Comments UA WBC (test code = 6 See_Comment [Automa perico message] The UA WBC) system which ge nerated this result transmit perico reference range : <=5. The reference range was not used to interpr et this result as sincere l/abnormal. [facility] AND [id number] 01:25:00 Test Item Value Reference Range Interpretation Comments UA RBC (test code = no gt See_Comment [Automa perico message] The UA RBC) system which ge nerated this result transmit perico reference range : <=2. The reference range was not used to interpr et this result as sincere l/abnormal. [facility] AND [id number] 01:25:00 Test Item Value Reference Range Interpretation Comments UA Bacteria (test code = UA Occasional /HPF Bacteria) [facility] AND [id number] 01:25:00 Test Item Value Reference Range Interpretation Comments UA Mucus (test code = UA Mucus) Few /LPF [id number] 19:34:00 Test Item Value Reference Range Interpretation Comments Glucose Lvl (test code = Glucose Lvl) 85 70-99 [facility]2021-12-16 19:34:00 Test Item Value Reference Range Interpretation Comments BUN (test code = BUN) 5 7-22 [facility] [facility]2021-12-16 19:34:00 Test Item Value Reference Range Interpretation Comments Creatinine Lvl (test code = Creatinine 0.52 0.50-1.40 Lvl) [facility]2021-12-16 19:34:00 Test Item Value Reference Range Interpretation Comments Sodium Lvl (test code = Sodium Lvl) 134 135-145 [facility]2021-12-16 19:34:00 Test Item Value Reference Range Interpretation Comments Potassium Lvl (test code = Potassium 3.5 3.5-5.1 Lvl) [place]1431-12-16 19:34:00 Test Item Value Reference Range Interpretation Comments Chloride Lvl (test code = Chloride Lvl) 103 95-109 [place] 151431-12-16 19:34:00 Test Item Value Reference Range Interpretation Comments CO2 (test code = CO2) 25 24-32 [place] [address]-12-16 19:34:00 Test Item Value Reference Range Interpretation Comments Calcium Lvl (test code = Calcium Lvl) 9.1 8.5-10.5 [place] 151431-12-16 19:34:00 Test Item Value Reference Range Interpretation Comments AGAP (test code = AGAP) 9.5 10.0-20.0 [place] 151431-12-16 19:34:00 Test Item Value Reference Range Interpretation Comments eGFR (test code = eGFR) 137 [place] 738071-12-16 19:34:00 Test Item Value Reference Range Interpretation Comments WBC (test code = WBC) 11.4 3.7-10.4 [place] [address]-12-16 19:34:00 Test Item Value Reference Range Interpretation Comments RBC (test code = RBC) 4.46 4.20-5.40 [place] [address]-12-16 19:34:00 Test Item Value Reference Range Interpretation Comments Hgb (test code = Hgb) 13.3 12.0-16.0 [place] [address]-12-16 19:34:00 Test Item Value Reference Range Interpretation Comments Hct (test code = Hct) 39.2 36.0-48.0 [place] [address]-12-16 19:34:00 Test Item Value Reference Range Interpretation Comments MCV (test code = MCV) 87.9 80.0-98.0 [place] [address]-12-16 19:34:00 Test Item Value Reference Range Interpretation Comments MCH (test code = MCH) 29.8 pg 27.0-31.0 [address]12-16 19:34:00 Test Item Value Reference Range Interpretation Comments MCHC (test code = MCHC) 33.9 32.0-36.0 [place] [address]-12-16 19:34:00 Test Item Value Reference Range Interpretation Comments RDW (test code = RDW) 12.6 11.5-14.5 [place] 738071-12-16 19:34:00 Test Item Value Reference Range Interpretation Comments Platelet (test code = Platelet) 232 133-450 [place] 738071-12-16 19:34:00 Test Item Value Reference Range Interpretation Comments MPV (test code = MPV) 9.1 7.4-10.4 [place] 738071-12-16 19:34:00 Test Item Value Reference Range Interpretation Comments Segs (test code = Segs) 73.6 45.0-75.0 [place] 738071-12-16 19:34:00 Test Item Value Reference Range Interpretation Comments Lymphocytes (test code = Lymphocytes) 19.6 20.0-40.0 [place] 738071-12-16 19:34:00 Test Item Value Reference Range Interpretation Comments Monocytes (test code = Monocytes) 6.0 2.0-12.0 [place] 738071-12-16 19:34:00 Test Item Value Reference Range Interpretation Comments Eosinophils (test code = 0.4 See_Comment [A utomated message] The Eosinophils) system which ge nerated this result tra nsmitted reference range : <=4.0. The reference r malcolm was not used to int erpret this result as normal/abnormal . [facility] [id number] 19:34:00 Test Item Value Reference Range Interpretation Comments Basophils (test code = 0.4 See_Comment [Aut omated message] The Basophils) system which ge nerated this result tra nsmitted reference range : <=1.0. The reference r malcolm was not used to int erpret this result as normal/abnormal . [facility] C[id number] 19:34:00 Test Item Value Reference Range Interpretation Comments Neutrophils # (test code = Neutrophils 8.4 1.5-8.1 #) [place] 738071-12-16 19:34:00 Test Item Value Reference Range Interpretation Comments Lymphocytes # (test code = Lymphocytes 2.2 1.0-5.5 #) [facility] CampusUutbqveNSPPNAJKDL1247-93-21 19:34:00 Test Item Value Reference Range Interpretation Comments Monocytes # (test code 0.7 See_Comment [Aut omated message] The = Monocytes #) system which generated this result tra nsmitted reference range : <=0.8. The reference r malcolm was not used to int erpret this result as normal/abnormal . [facility] AND [id number] 19:34:00 Test Item Value Reference Range Interpretation Comments UA Color (test code = Jasmine *ABN*(10/28/21 UA Color) 1:34 PM) [facility] AND [id number] 19:34:00 Test Item Value Reference Range Interpretation Comments UA Turbidity (test code Marked *ABN*(10/28/21 = UA Turbidity) 1:34 PM) [facility] AND [id number] 19:34:00 Test Item Value Reference Range Interpretation Comments UA Spec Grav (test code = UA Spec 1.026 1 Grav) [facility] AND [id number] 19:34:00 Test Item Value Reference Range Interpretation Comments UA pH (test code = UA pH) 5.0 1 5.0-8.0 [facility] AND [id number] 19:34:00 Test Item Value Reference Range Interpretation Comments UA Protein (test code = UA Protein) 30 mg/dL [facility] AND [id number] 19:34:00 Test Item Value Reference Range Interpretation Comments UA Glucose (test code = UA Negative mg/dL Glucose) [facility] AND [id number] 19:34:00 Test Item Value Reference Range Interpretation Comments UA Ketones (test code = UA Ketones) 20 mg/dL [facility] [place] AND [id number] 19:34:00 Test Item Value Reference Range Interpretation Comments UA Bili (test code = Negative *NA*(10/28/21 UA Bili) 1:34 PM) [facility] AND [id number] 19:34:00 Test Item Value Reference Range Interpretation Comments UA Blood (test code = Negative (10/28/21 1:34 UA Blood) PM) [facility] AND [id number] 19:34:00 Test Item Value Reference Range Interpretation Comments UA Urobilinogen (test code = UA 4.0 0.1-1.0 Urobilinogen) [facility] AND [id number] 19:34:00 Test Item Value Reference Range Interpretation Comments UA Nitrite (test code Negative (10/28/21 1:34 = UA Nitrite) PM) [facility] AND [id number] 19:34:00 Test Item Value Reference Range Interpretation Comments UA Leuk Est (test code Trace *ABN*(10/28/21 = UA Leuk Est) 1:34 PM) [facility] AND [id number] 19:34:00 Test Item Value Reference Range Interpretation Comments UA Sq Epi (test code = UA Sq Epi) Many /LPF [facility] AND [id number] 19:34:00 Test Item Value Reference Range Interpretation Comments UA WBC (test code = 6 See_Comment [Automa perico message] The UA WBC) system which ge nerated this result transmit perico reference range : <=5. The reference range was not used to interpr et this result as sincere l/abnormal. [facility] AND [id number] 19:34:00 Test Item Value Reference Range Interpretation Comments UA RBC (test code = 3 See_Comment [Automa perico message] The UA RBC) system which ge nerated this result transmit perico reference range : <=2. The reference range was not used to interpr et this result as sincere l/abnormal. [facility] AND [id number] 19:34:00 Test Item Value Reference Range Interpretation Comments UA Bacteria (test code = UA Occasional /HPF Bacteria) [facility] AND [id number] 19:34:00 Test Item Value Reference Range Interpretation Comments UA Mucus (test code = UA Mucus) Few /LPF [facility]2021-12-16 19:34:00 Test Item Value Reference Range Interpretation Comments Glucose Lvl (test code = Glucose Lvl) 85 70-99 [facility]2021-12-16 19:34:00 Test Item Value Reference Range Interpretation Comments BUN (test code = BUN) 5 7-22 [facility]2021-12-16 19:34:00 Test Item Value Reference Range Interpretation Comments Creatinine Lvl (test code = Creatinine 0.52 0.50-1.40 Lvl) [facility]2021-12-16 19:34:00 Test Item Value Reference Range Interpretation Comments Sodium Lvl (test code = Sodium Lvl) 134 135-145 [place] 151431-12-16 19:34:00 Test Item Value Reference Range Interpretation Comments Potassium Lvl (test code = Potassium 3.5 3.5-5.1 Lvl) [place] 151431-12-16 19:34:00 Test Item Value Reference Range Interpretation Comments Chloride Lvl (test code = Chloride Lvl) 103 95-109 [place] 151431-12-16 19:34:00 Test Item Value Reference Range Interpretation Comments CO2 (test code = CO2) 25 24-32 [place] 151431-12-16 19:34:00 Test Item Value Reference Range Interpretation Comments Calcium Lvl (test code = Calcium Lvl) 9.1 8.5-10.5 [place] 151431-12-16 19:34:00 Test Item Value Reference Range Interpretation Comments AGAP (test code = AGAP) 9.5 10.0-20.0 [place] 151431-12-16 19:34:00 Test Item Value Reference Range Interpretation Comments eGFR (test code = eGFR) 137 [place] [address]-12-16 19:34:00 Test Item Value Reference Range Interpretation Comments WBC (test code = WBC) 11.4 3.7-10.4 [place] [address]-12-16 19:34:00 Test Item Value Reference Range Interpretation Comments RBC (test code = RBC) 4.46 4.20-5.40 [place] 738071-12-16 19:34:00 Test Item Value Reference Range Interpretation Comments Hgb (test code = Hgb) 13.3 12.0-16.0 [place] [address]-12-16 19:34:00 Test Item Value Reference Range Interpretation Comments Hct (test code = Hct) 39.2 36.0-48.0 [place] [address]-12-16 19:34:00 Test Item Value Reference Range Interpretation Comments MCV (test code = MCV) 87.9 80.0-98.0 [address]12-16 19:34:00 Test Item Value Reference Range Interpretation Comments MCH (test code = MCH) 29.8 pg 27.0-31.0 [place] [address]-12-16 19:34:00 Test Item Value Reference Range Interpretation Comments MCHC (test code = MCHC) 33.9 32.0-36.0 [facility] [id number] 19:34:00 Test Item Value Reference Range Interpretation Comments RDW (test code = RDW) 12.6 11.5-14.5 [facility] [id number] 19:34:00 Test Item Value Reference Range Interpretation Comments Platelet (test code = Platelet) 232 133-450 [facility] [id number] 19:34:00 Test Item Value Reference Range Interpretation Comments MPV (test code = MPV) 9.1 7.4-10.4 [facility] CampusUiapnsfJNCFGAJGET7312-03-06 19:34:00 Test Item Value Reference Range Interpretation Comments Segs (test code = Segs) 73.6 45.0-75.0 [facility] C[id number] 19:34:00 Test Item Value Reference Range Interpretation Comments Lymphocytes (test code = Lymphocytes) 19.6 20.0-40.0 [facility] CampusOyygeayBMRKXSRJKM5395-45-66 19:34:00 Test Item Value Reference Range Interpretation Comments Monocytes (test code = Monocytes) 6.0 2.0-12.0 [facility] [id number] 19:34:00 Test Item Value Reference Range Interpretation Comments Eosinophils (test code = 0.4 See_Comment [A utomated message] The Eosinophils) system which ge nerated this result tra nsmitted reference range : <=4.0. The reference r malcolm was not used to int erpret this result as normal/abnormal . [facility] [id number] 19:34:00 Test Item Value Reference Range Interpretation Comments Basophils (test code = 0.4 See_Comment [Aut omated message] The Basophils) system which ge nerated this result tra nsmitted reference range : <=1.0. The reference r malcolm was not used to int erpret this result as normal/abnormal . [facility] [id number] 19:34:00 Test Item Value Reference Range Interpretation Comments Neutrophils # (test code = Neutrophils 8.4 1.5-8.1 #) [facility] CampusMlyxdsoFXGPGUBBYB1839-43-16 19:34:00 Test Item Value Reference Range Interpretation Comments Lymphocytes # (test code = Lymphocytes 2.2 1.0-5.5 #) [id number] 19:34:00 Test Item Value Reference Range Interpretation Comments Monocytes # (test code 0.7 See_Comment [Aut omated message] The = Monocytes #) system which generated this result tra nsmitted reference range : <=0.8. The reference r malcolm was not used to int erpret this result as normal/abnormal . [facility] [id number] 19:34:00 Test Item Value Reference Range Interpretation Comments UA Color (test code = Jasmine *ABN*(10/28/21 UA Color) 1:34 PM) [facility] [id number] 19:34:00 Test Item Value Reference Range Interpretation Comments UA Turbidity (test code Marked *ABN*(10/28/21 = UA Turbidity) 1:34 PM) [facility] [place] AND [id number] 19:34:00 Test Item Value Reference Range Interpretation Comments UA Spec Grav (test code = UA Spec 1.026 1 Grav) [facility] AND [id number] 19:34:00 Test Item Value Reference Range Interpretation Comments UA pH (test code = UA pH) 5.0 1 5.0-8.0 [facility] [place] AND [id number] 19:34:00 Test Item Value Reference Range Interpretation Comments UA Protein (test code = UA Protein) 30 mg/dL [facility] [place] AND [id number] 19:34:00 Test Item Value Reference Range Interpretation Comments UA Glucose (test code = UA Negative mg/dL Glucose) [facility] [id number] 19:34:00 Test Item Value Reference Range Interpretation Comments UA Ketones (test code = UA Ketones) 20 mg/dL [facility] [id number] 19:34:00 Test Item Value Reference Range Interpretation Comments UA Bili (test code = Negative *NA*(10/28/21 UA Bili) 1:34 PM) [facility] [id number] 19:34:00 Test Item Value Reference Range Interpretation Comments UA Blood (test code = Negative (10/28/21 1:34 UA Blood) PM) [facility] AND [id number] 19:34:00 Test Item Value Reference Range Interpretation Comments UA Urobilinogen (test code = UA 4.0 0.1-1.0 Urobilinogen) [facility] AND [id number] 19:34:00 Test Item Value Reference Range Interpretation Comments UA Nitrite (test code Negative (10/28/21 1:34 = UA Nitrite) PM) [facility] AND [id number] 19:34:00 Test Item Value Reference Range Interpretation Comments UA Leuk Est (test code Trace *ABN*(10/28/21 = UA Leuk Est) 1:34 PM) [facility] AND [id number] 19:34:00 Test Item Value Reference Range Interpretation Comments UA Sq Epi (test code = UA Sq Epi) Many /LPF [facility] AND [id number] 19:34:00 Test Item Value Reference Range Interpretation Comments UA WBC (test code = 6 See_Comment [Automa perico message] The UA WBC) system which ge nerated this result transmit perico reference range : <=5. The reference range was not used to interpr et this result as sincere l/abnormal. [facility] AND [id number] 19:34:00 Test Item Value Reference Range Interpretation Comments UA RBC (test code = 3 See_Comment [Automa perico message] The UA RBC) system which ge nerated this result transmit perico reference range : <=2. The reference range was not used to interpr et this result as sincere l/abnormal. [facility] AND [id number] 19:34:00 Test Item Value Reference Range Interpretation Comments UA Bacteria (test code = UA Occasional /HPF Bacteria) [facility] AND [id number] 19:34:00 Test Item Value Reference Range Interpretation Comments UA Mucus (test code = UA Mucus) Few /LPF [facility]2021-07-06 02:57:00 Test Item Value Reference Range Interpretation Comments Glucose Lvl (test code = Glucose Lvl) 87 70-99 [facility]2021-07-06 02:57:00 Test Item Value Reference Range Interpretation Comments BUN (test code = BUN) 10 7-22 [facility] [id number] 02:57:00 Test Item Value Reference Range Interpretation Comments Creatinine Lvl (test code = Creatinine 0.65 0.50-1.40 Lvl) [place] 151431-07-06 02:57:00 Test Item Value Reference Range Interpretation Comments Sodium Lvl (test code = Sodium Lvl) 143 135-145 [place] 151431-07-06 02:57:00 Test Item Value Reference Range Interpretation Comments Potassium Lvl (test code = Potassium 3.5 3.5-5.1 Lvl) [place] 151431-07-06 02:57:00 Test Item Value Reference Range Interpretation Comments Chloride Lvl (test code = Chloride Lvl) 106 95-109 [place] 151431-07-06 02:57:00 Test Item Value Reference Range Interpretation Comments CO2 (test code = CO2) 25 24-32 [place] 151431-07-06 02:57:00 Test Item Value Reference Range Interpretation Comments Calcium Lvl (test code = Calcium Lvl) 8.8 8.5-10.5 [place] 151431-07-06 02:57:00 Test Item Value Reference Range Interpretation Comments Total Protein (test code = Total 7.7 6.4-8.4 Protein) [place] 151431-07-06 02:57:00 Test Item Value Reference Range Interpretation Comments Albumin Lvl (test code = Albumin Lvl) 3.6 3.5-5.0 [place] 151431-07-06 02:57:00 Test Item Value Reference Range Interpretation Comments ALT (test code = ALT) 30 See_Comment [Auto mated message] The system which ge nerated this result transmit perico reference range : <=65. The reference range was not used to interpr et this result as sincere l/abnormal. [place] 151431-07-06 02:57:00 Test Item Value Reference Range Interpretation Comments AST (test code = AST) 26 See_Comment [Auto mated message] The system which ge nerated this result transmit perico reference range : <=37. The reference range was not used to interpr et this result as sincere l/abnormal. [place] 151431-07-06 02:57:00 Test Item Value Reference Range Interpretation Comments Alk Phos (test code = Alk Phos) 88 39-136 [facility] [id number] 02:57:00 Test Item Value Reference Range Interpretation Comments Bili Total (test code = Bili Total) 0.6 0.2-1.3 [facility]2021-07-06 02:57:00 Test Item Value Reference Range Interpretation Comments AGAP (test code = AGAP) 15.5 10.0-20.0 [place] 151431-07-06 02:57:00 Test Item Value Reference Range Interpretation Comments B/C Ratio (test code = B/C Ratio) 15 1 6-25 [place] 151431-07-06 02:57:00 Test Item Value Reference Range Interpretation Comments Globulin (test code = Globulin) 4.1 2.7-4.2 [facility]2021-07-06 02:57:00 Test Item Value Reference Range Interpretation Comments A/G Ratio (test code = A/G Ratio) 0.9 1 0.7-1.6 [place] 151431-07-06 02:57:00 Test Item Value Reference Range Interpretation Comments eGFR (test code = eGFR) 127 [facility]2021-07-06 02:57:00 Test Item Value Reference Range Interpretation Comments Lipase Lvl (test code = Lipase Lvl) 67 73-393 [facility]HkyjtgcKWIDSEEWBNHIC9574-05-38 02:57:00 Test Item Value Reference Range Interpretation Comments S Preg (test code = S Negative (05/17/21 9:57 Preg) PM) [facility] [id number] 02:57:00 Test Item Value Reference Range Interpretation Comments WBC (test code = WBC) 7.8 3.7-10.4 [place] 738071-07-06 02:57:00 Test Item Value Reference Range Interpretation Comments RBC (test code = RBC) 4.63 4.20-5.40 [place] 738071-07-06 02:57:00 Test Item Value Reference Range Interpretation Comments Hgb (test code = Hgb) 14.0 12.0-16.0 [place] [address]-07-06 02:57:00 Test Item Value Reference Range Interpretation Comments Hct (test code = Hct) 40.6 36.0-48.0 [place] 738071-07-06 02:57:00 Test Item Value Reference Range Interpretation Comments MCV (test code = MCV) 87.7 80.0-98.0 [place] 738071-07-06 02:57:00 Test Item Value Reference Range Interpretation Comments MCH (test code = MCH) 30.3 pg 27.0-31.0 [place] 738071-07-06 02:57:00 Test Item Value Reference Range Interpretation Comments MCHC (test code = MCHC) 34.5 32.0-36.0 [place] 738071-07-06 02:57:00 Test Item Value Reference Range Interpretation Comments RDW (test code = RDW) 12.5 11.5-14.5 [place] 738071-07-06 02:57:00 Test Item Value Reference Range Interpretation Comments Platelet (test code = Platelet) 202 133-450 [place] 738071-07-06 02:57:00 Test Item Value Reference Range Interpretation Comments MPV (test code = MPV) 8.7 7.4-10.4 [place] 738071-07-06 02:57:00 Test Item Value Reference Range Interpretation Comments Segs (test code = Segs) 61.6 45.0-75.0 [place] 738071-07-06 02:57:00 Test Item Value Reference Range Interpretation Comments Lymphocytes (test code = Lymphocytes) 29.5 20.0-40.0 [place] 738071-07-06 02:57:00 Test Item Value Reference Range Interpretation Comments Monocytes (test code = Monocytes) 8.0 2.0-12.0 [place] 738071-07-06 02:57:00 Test Item Value Reference Range Interpretation Comments Eosinophils (test code = 0.5 See_Comment [A utomated message] The Eosinophils) system which ge nerated this result tra nsmitted reference range : <=4.0. The reference r malcolm was not used to int erpret this result as normal/abnormal . [place] 738071-07-06 02:57:00 Test Item Value Reference Range Interpretation Comments Basophils (test code = 0.5 See_Comment [Aut omated message] The Basophils) system which ge nerated this result tra nsmitted reference range : <=1.0. The reference r malcolm was not used to int erpret this result as normal/abnormal . [facility] [id number] 02:57:00 Test Item Value Reference Range Interpretation Comments Neutrophils # (test code = Neutrophils 4.8 1.5-8.1 #) [facility] [id number] 02:57:00 Test Item Value Reference Range Interpretation Comments Lymphocytes # (test code = Lymphocytes 2.3 1.0-5.5 #) [facility] [id number] 02:57:00 Test Item Value Reference Range Interpretation Comments Monocytes # (test code 0.6 See_Comment [Aut omated message] The = Monocytes #) system which generated this result tra nsmitted reference range : <=0.8. The reference r malcolm was not used to int erpret this result as normal/abnormal . [facility] AND [id number] 02:57:00 Test Item Value Reference Range Interpretation Comments UA Color (test code = Yellow *NA*(05/17/21 9:57 UA Color) PM) [facility] AND [id number] 02:57:00 Test Item Value Reference Range Interpretation Comments UA Turbidity (test code Cloudy *ABN*(05/17/21 = UA Turbidity) 9:57 PM) [facility] AND [id number] 02:57:00 Test Item Value Reference Range Interpretation Comments UA Spec Grav (test code = UA Spec 1.025 1 Grav) [facility] AND [id number] 02:57:00 Test Item Value Reference Range Interpretation Comments UA pH (test code = UA pH) 6.5 1 5.0-8.0 [facility] AND [id number] 02:57:00 Test Item Value Reference Range Interpretation Comments UA Protein (test code Negative (05/17/21 9:57 = UA Protein) PM) [facility] AND [id number] 02:57:00 Test Item Value Reference Range Interpretation Comments UA Glucose (test code Negative (05/17/21 9:57 = UA Glucose) PM) [facility] AND [id number] 02:57:00 Test Item Value Reference Range Interpretation Comments UA Ketones (test code = UA Ketones) 40 mg/dL [facility] AND [id number] 02:57:00 Test Item Value Reference Range Interpretation Comments UA Bili (test code = Negative *NA*(05/17/21 UA Bili) 9:57 PM) [facility] AND [id number] 02:57:00 Test Item Value Reference Range Interpretation Comments UA Blood (test code = Moderate *ABN*(05/17/21 UA Blood) 9:57 PM) [facility] AND [id number] 02:57:00 Test Item Value Reference Range Interpretation Comments UA Urobilinogen (test code = UA 2.0 0.1-1.0 Urobilinogen) [facility] AND [id number] 02:57:00 Test Item Value Reference Range Interpretation Comments UA Nitrite (test code Positive *ABN*(05/17/21 = UA Nitrite) 9:57 PM) [facility] AND [id number] 02:57:00 Test Item Value Reference Range Interpretation Comments UA Leuk Est (test code Trace *ABN*(05/17/21 9:57 = UA Leuk Est) PM) [facility] AND [id number] 02:57:00 Test Item Value Reference Range Interpretation Comments UA Sq Epi (test code = UA Sq Epi) Many /LPF [facility] AND [id number] 02:57:00 Test Item Value Reference Range Interpretation Comments UA WBC (test code = UA WBC) 11-20 /HPF [facility] AND [id number] 02:57:00 Test Item Value Reference Range Interpretation Comments UA RBC (test code = UA RBC) 6-10 /HPF [facility] AND [id number] 02:57:00 Test Item Value Reference Range Interpretation Comments UA Bacteria (test code = UA Many /HPF Bacteria) [facility] AND [id number] 02:57:00 Test Item Value Reference Range Interpretation Comments UA Mucus (test code = UA Mucus) Few /LPF [facility] AND [id number] 02:57:00 Test Item Value Reference Range Interpretation Comments UA Renal Epi (test code = UA Renal 3-5 /LPF Epi) [facility] [id number] 02:57:00 Test Item Value Reference Range Interpretation Comments Culture: Urine (test >100,000 CFU/mL code = Culture: Escherichia coli , Urine) Sensitivity Pending 10,000 - 50,000 CFU/mL Skin Amelia [place] 151431-07-06 02:57:00 Test Item Value Reference Range Interpretation Comments Glucose Lvl (test code = Glucose Lvl) 87 70-99 [place] 151431-07-06 02:57:00 Test Item Value Reference Range Interpretation Comments BUN (test code = BUN) 10 7-22 [place] 151431-07-06 02:57:00 Test Item Value Reference Range Interpretation Comments Creatinine Lvl (test code = Creatinine 0.65 0.50-1.40 Lvl) [place] 151431-07-06 02:57:00 Test Item Value Reference Range Interpretation Comments Sodium Lvl (test code = Sodium Lvl) 143 135-145 [place] 151431-07-06 02:57:00 Test Item Value Reference Range Interpretation Comments Potassium Lvl (test code = Potassium 3.5 3.5-5.1 Lvl) [place] 151431-07-06 02:57:00 Test Item Value Reference Range Interpretation Comments Chloride Lvl (test code = Chloride Lvl) 106 95-109 [place] 151431-07-06 02:57:00 Test Item Value Reference Range Interpretation Comments CO2 (test code = CO2) 25 24-32 [place] 151431-07-06 02:57:00 Test Item Value Reference Range Interpretation Comments Calcium Lvl (test code = Calcium Lvl) 8.8 8.5-10.5 [place] 151431-07-06 02:57:00 Test Item Value Reference Range Interpretation Comments Total Protein (test code = Total 7.7 6.4-8.4 Protein) [place] 151431-07-06 02:57:00 Test Item Value Reference Range Interpretation Comments Albumin Lvl (test code = Albumin Lvl) 3.6 3.5-5.0 [place] 151431-07-06 02:57:00 Test Item Value Reference Range Interpretation Comments ALT (test code = ALT) 30 See_Comment [Auto mated message] The system which ge nerated this result transmit perico reference range : <=65. The reference range was not used to interpr et this result as sincere l/abnormal. [place] 151431-07-06 02:57:00 Test Item Value Reference Range Interpretation Comments AST (test code = AST) 26 See_Comment [Auto mated message] The system which ge nerated this result transmit perico reference range : <=37. The reference range was not used to interpr et this result as sincere l/abnormal. [place] 151431-07-06 02:57:00 Test Item Value Reference Range Interpretation Comments Alk Phos (test code = Alk Phos) 88 39-136 [facility] [id number] 02:57:00 Test Item Value Reference Range Interpretation Comments Bili Total (test code = Bili Total) 0.6 0.2-1.3 [place] 151431-07-06 02:57:00 Test Item Value Reference Range Interpretation Comments AGAP (test code = AGAP) 15.5 10.0-20.0 [facility]2021-07-06 02:57:00 Test Item Value Reference Range Interpretation Comments B/C Ratio (test code = B/C Ratio) 15 1 6-25 [facility]2021-07-06 02:57:00 Test Item Value Reference Range Interpretation Comments Globulin (test code = Globulin) 4.1 2.7-4.2 [facility] [id number] 02:57:00 Test Item Value Reference Range Interpretation Comments A/G Ratio (test code = A/G Ratio) 0.9 1 0.7-1.6 [facility]2021-07-06 02:57:00 Test Item Value Reference Range Interpretation Comments eGFR (test code = eGFR) 127 [facility] [id number] 02:57:00 Test Item Value Reference Range Interpretation Comments Lipase Lvl (test code = Lipase Lvl) 67 73-393 [id number] 02:57:00 Test Item Value Reference Range Interpretation Comments S Preg (test code = S Negative (05/17/21 9:57 Preg) PM) [facility] [id number] 02:57:00 Test Item Value Reference Range Interpretation Comments WBC (test code = WBC) 7.8 3.7-10.4 [facility] TylerQnspkluFTCBUMVHIS4666-13-01 02:57:00 Test Item Value Reference Range Interpretation Comments RBC (test code = RBC) 4.63 4.20-5.40 [facility] [id number] 02:57:00 Test Item Value Reference Range Interpretation Comments Hgb (test code = Hgb) 14.0 12.0-16.0 [place] 738071-07-06 02:57:00 Test Item Value Reference Range Interpretation Comments Hct (test code = Hct) 40.6 36.0-48.0 [facility] CampusTgmtbpqNOTUUWAWEB1298-56-92 02:57:00 Test Item Value Reference Range Interpretation Comments MCV (test code = MCV) 87.7 80.0-98.0 [facility] CampusWgnkbjcUSCHCYHPRG3535-15-33 02:57:00 Test Item Value Reference Range Interpretation Comments MCH (test code = MCH) 30.3 pg 27.0-31.0 [facility] C[id number] 02:57:00 Test Item Value Reference Range Interpretation Comments MCHC (test code = MCHC) 34.5 32.0-36.0 [facility] CampusCxctoklNVWQYDYBEF3674-90-98 02:57:00 Test Item Value Reference Range Interpretation Comments RDW (test code = RDW) 12.5 11.5-14.5 [facility] CampusAmmkngiVBPLEGWZAZ5124-77-96 02:57:00 Test Item Value Reference Range Interpretation Comments Platelet (test code = Platelet) 202 133-450 [facility] C[id number] 02:57:00 Test Item Value Reference Range Interpretation Comments MPV (test code = MPV) 8.7 7.4-10.4 [place] 738071-07-06 02:57:00 Test Item Value Reference Range Interpretation Comments Segs (test code = Segs) 61.6 45.0-75.0 [place] 738071-07-06 02:57:00 Test Item Value Reference Range Interpretation Comments Lymphocytes (test code = Lymphocytes) 29.5 20.0-40.0 [place] 738071-07-06 02:57:00 Test Item Value Reference Range Interpretation Comments Monocytes (test code = Monocytes) 8.0 2.0-12.0 [place] 738071-07-06 02:57:00 Test Item Value Reference Range Interpretation Comments Eosinophils (test code = 0.5 See_Comment [A utomated message] The Eosinophils) system which ge nerated this result tra nsmitted reference range : <=4.0. The reference r malcolm was not used to int erpret this result as normal/abnormal . [facility] [id number] 02:57:00 Test Item Value Reference Range Interpretation Comments Basophils (test code = 0.5 See_Comment [Aut omated message] The Basophils) system which ge nerated this result tra nsmitted reference range : <=1.0. The reference r malcolm was not used to int erpret this result as normal/abnormal . [facility] CampusYqzefwcRMOFAQKXPF1985-04-23 02:57:00 Test Item Value Reference Range Interpretation Comments Neutrophils # (test code = Neutrophils 4.8 1.5-8.1 #) [facility] CampusThcxtigCANZITAZSL4368-30-80 02:57:00 Test Item Value Reference Range Interpretation Comments Lymphocytes # (test code = Lymphocytes 2.3 1.0-5.5 #) [facility] CampusYefbgccTVKHXTEPDL9466-74-62 02:57:00 Test Item Value Reference Range Interpretation Comments Monocytes # (test code 0.6 See_Comment [Aut omated message] The = Monocytes #) system which generated this result tra nsmitted reference range : <=0.8. The reference r malcolm was not used to int erpret this result as normal/abnormal . [facility] AND [id number] 02:57:00 Test Item Value Reference Range Interpretation Comments UA Color (test code = Yellow *NA*(05/17/21 9:57 UA Color) PM) [facility] AND [id number] 02:57:00 Test Item Value Reference Range Interpretation Comments UA Turbidity (test code Cloudy *ABN*(05/17/21 = UA Turbidity) 9:57 PM) [facility] AND [id number] 02:57:00 Test Item Value Reference Range Interpretation Comments UA Spec Grav (test code = UA Spec 1.025 1 Grav) [facility] AND [id number] 02:57:00 Test Item Value Reference Range Interpretation Comments UA pH (test code = UA pH) 6.5 1 5.0-8.0 [facility] AND [id number] 02:57:00 Test Item Value Reference Range Interpretation Comments UA Protein (test code Negative (05/17/21 9:57 = UA Protein) PM) [facility] AND [id number] 02:57:00 Test Item Value Reference Range Interpretation Comments UA Glucose (test code Negative (05/17/21 9:57 = UA Glucose) PM) [facility] AND [id number] 02:57:00 Test Item Value Reference Range Interpretation Comments UA Ketones (test code = UA Ketones) 40 mg/dL [facility] AND [id number] 02:57:00 Test Item Value Reference Range Interpretation Comments UA Bili (test code = Negative *NA*(05/17/21 UA Bili) 9:57 PM) [facility] AND [id number] 02:57:00 Test Item Value Reference Range Interpretation Comments UA Blood (test code = Moderate *ABN*(05/17/21 UA Blood) 9:57 PM) [facility] AND [id number] 02:57:00 Test Item Value Reference Range Interpretation Comments UA Urobilinogen (test code = UA 2.0 0.1-1.0 Urobilinogen) [facility] AND [id number] 02:57:00 Test Item Value Reference Range Interpretation Comments UA Nitrite (test code Positive *ABN*(05/17/21 = UA Nitrite) 9:57 PM) [facility] AND [id number] 02:57:00 Test Item Value Reference Range Interpretation Comments UA Leuk Est (test code Trace *ABN*(05/17/21 9:57 = UA Leuk Est) PM) [facility] AND [id number] 02:57:00 Test Item Value Reference Range Interpretation Comments UA Sq Epi (test code = UA Sq Epi) Many /LPF [facility] AND [id number] 02:57:00 Test Item Value Reference Range Interpretation Comments UA WBC (test code = UA WBC) 11-20 /HPF [facility] AND [id number] 02:57:00 Test Item Value Reference Range Interpretation Comments UA RBC (test code = UA RBC) 6-10 /HPF [facility] AND [id number] 02:57:00 Test Item Value Reference Range Interpretation Comments UA Bacteria (test code = UA Many /HPF Bacteria) [facility] AND [id number] 02:57:00 Test Item Value Reference Range Interpretation Comments UA Mucus (test code = UA Mucus) Few /LPF [facility] AND [id number] 02:57:00 Test Item Value Reference Range Interpretation Comments UA Renal Epi (test code = UA Renal 3-5 /LPF Epi) [facility] [id number] 02:57:00 Test Item Value Reference Range Interpretation Comments Culture: Urine (test >100,000 CFU/mL code = Culture: Escherichia coli , Urine) Sensitivity Pending 10,000 - 50,000 CFU/mL Skin Amelia [place] [id number] 13:32:00 Test Item Value Reference Range Interpretation Comments Grp A Strep Scr (test Negative (05/13/21 8:32 code = Grp A Strep AM) Scr) [facility] [id number] 13:32:00 Test Item Value Reference Range Interpretation Comments Culture: Throat Strep Culture In Progress Screen (test code = Culture: Throat Strep Screen) [place] [id number] 13:32:00 Test Item Value Reference Range Interpretation Comments Grp A Strep Scr (test Negative (05/13/21 8:32 code = Grp A Strep AM) Scr) [facility]rep [id number] 13:32:00 Test Item Value Reference Range Interpretation Comments Culture: Throat Strep Culture In Progress Screen (test code = Culture: Throat Strep Screen) [facility]2021-03-23 17:34:00 Test Item Value Reference Range Interpretation Comments Glucose Lvl (test code = Glucose Lvl) 92 70-99 [facility]2021-03-23 17:34:00 Test Item Value Reference Range Interpretation Comments BUN (test code = BUN) 13 - [facility]2021-03-23 17:34:00 Test Item Value Reference Range Interpretation Comments Creatinine Lvl (test code = Creatinine 0.84 0.50-1.40 Lvl) [facility]2021-03-23 17:34:00 Test Item Value Reference Range Interpretation Comments Sodium Lvl (test code = Sodium Lvl) 138 135-145 [facility]2021-03-23 17:34:00 Test Item Value Reference Range Interpretation Comments Potassium Lvl (test code = Potassium 3.8 3.5-5.1 Lvl) [facility] [id number] 17:34:00 Test Item Value Reference Range Interpretation Comments Chloride Lvl (test code = Chloride Lvl) 100 95-109 [facility] [id number] 17:34:00 Test Item Value Reference Range Interpretation Comments CO2 (test code = CO2) 26 24-32 [facility] [id number] 17:34:00 Test Item Value Reference Range Interpretation Comments Calcium Lvl (test code = Calcium Lvl) 9.8 8.5-10.5 [facility] [id number] 17:34:00 Test Item Value Reference Range Interpretation Comments Total Protein (test code = Total 8.8 6.4-8.4 Protein) [facility] [id number] 17:34:00 Test Item Value Reference Range Interpretation Comments Albumin Lvl (test code = Albumin Lvl) 4.2 3.5-5.0 [facility] [id number] 17:34:00 Test Item Value Reference Range Interpretation Comments ALT (test code = ALT) 29 See_Comment [Auto mated message] The system which ge nerated this result transmit perico reference range : <=65. The reference range was not used to interpr et this result as sincere l/abnormal. [facility] [id number] 17:34:00 Test Item Value Reference Range Interpretation Comments AST (test code = AST) 15 See_Comment [Auto mated message] The system which ge nerated this result transmit perico reference range : <=37. The reference range was not used to interpr et this result as sincere l/abnormal. [facility] [id number] 17:34:00 Test Item Value Reference Range Interpretation Comments Alk Phos (test code = Alk Phos) 124 39-136 [facility] [id number] 17:34:00 Test Item Value Reference Range Interpretation Comments Bili Total (test code = Bili Total) 1.4 0.2-1.3 [facility] [id number] 17:34:00 Test Item Value Reference Range Interpretation Comments AGAP (test code = AGAP) 15.8 10.0-20.0 [place] 7[address]-03-23 17:34:00 Test Item Value Reference Range Interpretation Comments B/C Ratio (test code = B/C Ratio) 15 1 6-[address]03-23 17:34:00 Test Item Value Reference Range Interpretation Comments Globulin (test code = Globulin) 4.6 2.7-4.2 [place] 151431-03-23 17:34:00 Test Item Value Reference Range Interpretation Comments A/G Ratio (test code = A/G Ratio) 0.9 1 0.7-1.6 [address]03-23 17:34:00 Test Item Value Reference Range Interpretation Comments eGFR (test code = eGFR) [address]03-23 17:34:00 Test Item Value Reference Range Interpretation Comments Lipase Lvl (test code = Lipase Lvl) 99 73-393 [place] 151431-03-23 17:34:00 Test Item Value Reference Range Interpretation Comments Lactic Acid Lvl (test code = Lactic 1.0 0.5-2.2 Acid Lvl) [address]03-23 17:34:00 Test Item Value Reference Range Interpretation Comments S Preg (test code = S Negative (02/02/21 12:34 Preg) PM) [address]03-23 17:34:00 Test Item Value Reference Range Interpretation Comments WBC (test code = WBC) 14.8 3.7-10.[address]03-23 17:34:00 Test Item Value Reference Range Interpretation Comments RBC (test code = RBC) 5.09 4.20-5.[address]03-23 17:34:00 Test Item Value Reference Range Interpretation Comments Hgb (test code = Hgb) 15.0 12.0-16.[address]03-23 17:34:00 Test Item Value Reference Range Interpretation Comments Hct (test code = Hct) 45.9 36.0-48.[address]03-23 17:34:00 Test Item Value Reference Range Interpretation Comments MCV (test code = MCV) 90.3 80.0-98.[address]03-23 17:34:00 Test Item Value Reference Range Interpretation Comments MCH (test code = MCH) 29.6 pg 27.0-31.0 [facility] [id number] 17:34:00 Test Item Value Reference Range Interpretation Comments MCHC (test code = MCHC) 32.8 32.0-36.0 [facility] Camp[id number] 17:34:00 Test Item Value Reference Range Interpretation Comments RDW (test code = RDW) 12.7 11.5-14.5 [place] 738071-03-23 17:34:00 Test Item Value Reference Range Interpretation Comments Platelet (test code = Platelet) 254 133-450 [facility] [id number] 17:34:00 Test Item Value Reference Range Interpretation Comments MPV (test code = MPV) 9.2 7.4-10.4 [facility] [id number] 17:34:00 Test Item Value Reference Range Interpretation Comments Segs (test code = Segs) 81.7 45.0-75.0 [facility] [id number] 17:34:00 Test Item Value Reference Range Interpretation Comments Lymphocytes (test code = Lymphocytes) 11.5 20.0-40.0 [facility] CampusGghpgixYDESOEIJLM5990-20-29 17:34:00 Test Item Value Reference Range Interpretation Comments Monocytes (test code = Monocytes) 6.2 2.0-12.0 [facility] [id number] 17:34:00 Test Item Value Reference Range Interpretation Comments Eosinophils (test code = 0.2 See_Comment [A utomated message] The Eosinophils) system which ge nerated this result tra nsmitted reference range : <=4.0. The reference r malcolm was not used to int erpret this result as normal/abnormal . [facility] [id number] 17:34:00 Test Item Value Reference Range Interpretation Comments Basophils (test code = 0.5 See_Comment [Aut omated message] The Basophils) system which ge nerated this result tra nsmitted reference range : <=1.0. The reference r malcolm was not used to int erpret this result as normal/abnormal . [place] 738071-03-23 17:34:00 Test Item Value Reference Range Interpretation Comments Neutrophils # (test code = Neutrophils 12.1 1.5-8.1 #) [facility]vjajonCRAMTAUNPQ5333-03-89 17:34:00 Test Item Value Reference Range Interpretation Comments Lymphocytes # (test code = Lymphocytes 1.7 1.0-5.5 #) [facility]borSxamgpuZGVBACMMCC7213-76-97 17:34:00 Test Item Value Reference Range Interpretation Comments Monocytes # (test code 0.9 See_Comment [Aut omated message] The = Monocytes #) system which generated this result tra nsmitted reference range : <=0.8. The reference r malcolm was not used to int erpret this result as normal/abnormal . [facility] [id number] 17:34:00 Test Item Value Reference Range Interpretation Comments Basophils # (test code 0.1 See_Comment [Aut omated message] The = Basophils #) system which generated this result tra nsmitted reference range : <=0.2. The reference r malcolm was not used to int erpret this result as normal/abnormal . [facility] [id number] 17:34:00 Test Item Value Reference Range Interpretation Comments Coronavirus (COVID-19) Not Detected (02/02/21 MILAGORS (test code = 12:34 PM) Coronavirus (COVID-19) MILAGROS) [facility] TylerNITROFURANTOIN:SUSC:PT:ISOLATE:ORDQN:[id number] 17:34:00 Test Item Value Reference Range Interpretation Comments Culture: Urine (test 10,000 - 50,000 CFU/mL code = Culture: Escherichia coli <10,000 Urine) CFU/mL Skin [facility] TylerNITROFURANTOIN:SUSC:PT:ISOLATE:ORDQN:[id number] 17:34:00 Test Item Value Reference Range Interpretation Comments Escherichia coli (test code Escherichia coli = Escherichia coli) [facility] AND [id number] 17:34:00 Test Item Value Reference Range Interpretation Comments UA Color (test code = Yellow *NA*(02/02/21 UA Color) 12:34 PM) [facility] [id number] 17:34:00 Test Item Value Reference Range Interpretation Comments UA Turbidity (test code Slight Cloudy = UA Turbidity) (02/02/21 12:34 PM) [facility] [id number] 17:34:00 Test Item Value Reference Range Interpretation Comments UA Spec Grav (test code = UA Spec 1.020 1 Grav) [facility] [id number] 17:34:00 Test Item Value Reference Range Interpretation Comments UA pH (test code = UA pH) 6.5 1 5.0-8.0 [facility] [id number] 17:34:00 Test Item Value Reference Range Interpretation Comments UA Protein (test code = Trace *ABN*(02/02/21 UA Protein) 12:34 PM) [facility] [id number] 17:34:00 Test Item Value Reference Range Interpretation Comments UA Glucose (test code Negative (02/02/21 12:34 = UA Glucose) PM) [facility] [id number] 17:34:00 Test Item Value Reference Range Interpretation Comments UA Ketones (test code = UA Ketones) 15 mg/dL [facility] [id number] 17:34:00 Test Item Value Reference Range Interpretation Comments UA Bili (test code = Small *ABN*(02/02/21 UA Bili) 12:34 PM) [facility] [id number] 17:34:00 Test Item Value Reference Range Interpretation Comments UA Blood (test code = Negative (02/02/21 12:34 UA Blood) PM) [facility] AND [id number] 17:34:00 Test Item Value Reference Range Interpretation Comments UA Urobilinogen (test code = UA 1.0 0.1-1.0 Urobilinogen) [facility] [id number] 17:34:00 Test Item Value Reference Range Interpretation Comments UA Nitrite (test code Negative (02/02/21 12:34 = UA Nitrite) PM) [facility] [id number] 17:34:00 Test Item Value Reference Range Interpretation Comments UA Leuk Est (test Moderate *ABN*(02/02/21 code = UA Leuk Est) 12:34 PM) [facility] [id number] 17:34:00 Test Item Value Reference Range Interpretation Comments UA Sq Epi (test code = UA Sq Moderate /LPF Epi) [facility] [id number] 17:34:00 Test Item Value Reference Range Interpretation Comments UA WBC (test code = UA WBC) 51-100 /HPF [facility] AND [id number] 17:34:00 Test Item Value Reference Range Interpretation Comments UA RBC (test code = UA RBC) 0-2 /HPF [facility] AND [id number] 17:34:00 Test Item Value Reference Range Interpretation Comments UA Bacteria (test code = UA Moderate /HPF Bacteria) [facility] AND [id number] 17:34:00 Test Item Value Reference Range Interpretation Comments UA Mucus (test code = UA Mucus) Moderate /[facility]F [facility] Tyler[facility]: [id number] 17:34:00 Test Item Value Reference Range Interpretation Comments Culture: Urine 10,000 - 50,000 CFU/mL Gram (test code = Negative Rods . Culture: Urine) Identification And Sensitivity Pending [facility]2021-03-23 17:34:00 Test Item Value Reference Range Interpretation Comments Glucose Lvl (test code = Glucose Lvl) 92 70-99 [facility]2021-03-23 17:34:00 Test Item Value Reference Range Interpretation Comments BUN (test code = BUN) 13 7-22 [facility]2021-03-23 17:34:00 Test Item Value Reference Range Interpretation Comments Creatinine Lvl (test code = Creatinine 0.84 0.50-1.40 Lvl) [facility]2021-03-23 17:34:00 Test Item Value Reference Range Interpretation Comments Sodium Lvl (test code = Sodium Lvl) 138 135-145 [facility]2021-03-23 17:34:00 Test Item Value Reference Range Interpretation Comments Potassium Lvl (test code = Potassium 3.8 3.5-5.1 Lvl) [facility]2021-03-23 17:34:00 Test Item Value Reference Range Interpretation Comments Chloride Lvl (test code = Chloride Lvl) 100 95-109 [facility]2021-03-23 17:34:00 Test Item Value Reference Range Interpretation Comments CO2 (test code = CO2) 26 24-32 [facility]2021-03-23 17:34:00 Test Item Value Reference Range Interpretation Comments Calcium Lvl (test code = Calcium Lvl) 9.8 8.5-10.5 [facility] [id number] 17:34:00 Test Item Value Reference Range Interpretation Comments Total Protein (test code = Total 8.8 6.4-8.4 Protein) [place] 151431-03-23 17:34:00 Test Item Value Reference Range Interpretation Comments Albumin Lvl (test code = Albumin Lvl) 4.2 3.5-5.0 [facility] [id number] 17:34:00 Test Item Value Reference Range Interpretation Comments ALT (test code = ALT) 29 See_Comment [Auto mated message] The system which ge nerated this result transmit perico reference range : <=65. The reference range was not used to interpr et this result as sincere l/abnormal. [facility] [id number] 17:34:00 Test Item Value Reference Range Interpretation Comments AST (test code = AST) 15 See_Comment [Auto mated message] The system which ge nerated this result transmit perico reference range : <=37. The reference range was not used to interpr et this result as sincere l/abnormal. [facility] [id number] 17:34:00 Test Item Value Reference Range Interpretation Comments Alk Phos (test code = Alk Phos) 124 39-136 [facility] [id number] 17:34:00 Test Item Value Reference Range Interpretation Comments Bili Total (test code = Bili Total) 1.4 0.2-1.3 [facility] [id number] 17:34:00 Test Item Value Reference Range Interpretation Comments AGAP (test code = AGAP) 15.8 10.0-20.0 [facility] [id number] 17:34:00 Test Item Value Reference Range Interpretation Comments B/C Ratio (test code = B/C Ratio) 15 1 6-25 [facility] [id number] 17:34:00 Test Item Value Reference Range Interpretation Comments Globulin (test code = Globulin) 4.6 2.7-4.2 [facility] [id number] 17:34:00 Test Item Value Reference Range Interpretation Comments A/G Ratio (test code = A/G Ratio) 0.9 1 0.7-1.6 [place] 151431-03-23 17:34:00 Test Item Value Reference Range Interpretation Comments eGFR (test code = eGFR) 100 [place] 151431-03-23 17:34:00 Test Item Value Reference Range Interpretation Comments Lipase Lvl (test code = Lipase Lvl) 99 73-393 [place] 151431-03-23 17:34:00 Test Item Value Reference Range Interpretation Comments Lactic Acid Lvl (test code = Lactic 1.0 0.5-2.2 Acid Lvl) [id number] 17:34:00 Test Item Value Reference Range Interpretation Comments S Preg (test code = S Negative (02/02/21 12:34 Preg) PM) [place] 738071-03-23 17:34:00 Test Item Value Reference Range Interpretation Comments WBC (test code = WBC) 14.8 3.7-10.4 [place] 738071-03-23 17:34:00 Test Item Value Reference Range Interpretation Comments RBC (test code = RBC) 5.09 4.20-5.40 [place] 738071-03-23 17:34:00 Test Item Value Reference Range Interpretation Comments Hgb (test code = Hgb) 15.0 12.0-16.0 [place] [address]-03-23 17:34:00 Test Item Value Reference Range Interpretation Comments Hct (test code = Hct) 45.9 36.0-48.0 [place] [address]-03-23 17:34:00 Test Item Value Reference Range Interpretation Comments MCV (test code = MCV) 90.3 80.0-98.0 [place] [address]-03-23 17:34:00 Test Item Value Reference Range Interpretation Comments MCH (test code = MCH) 29.6 pg 27.0-31.0 [place] [address]-03-23 17:34:00 Test Item Value Reference Range Interpretation Comments MCHC (test code = MCHC) 32.8 32.0-36.0 [place] [address]-03-23 17:34:00 Test Item Value Reference Range Interpretation Comments RDW (test code = RDW) 12.7 11.5-14.5 [place] 738071-03-23 17:34:00 Test Item Value Reference Range Interpretation Comments Platelet (test code = Platelet) 254 133-450 [place] 738071-03-23 17:34:00 Test Item Value Reference Range Interpretation Comments MPV (test code = MPV) 9.2 7.4-10.4 [place] [address]-03-23 17:34:00 Test Item Value Reference Range Interpretation Comments Segs (test code = Segs) 81.7 45.0-75.0 [place] [address]-03-23 17:34:00 Test Item Value Reference Range Interpretation Comments Lymphocytes (test code = Lymphocytes) 11.5 20.0-40.0 [place] [address]-03-23 17:34:00 Test Item Value Reference Range Interpretation Comments Monocytes (test code = Monocytes) 6.2 2.0-12.0 [place] [address]-03-23 17:34:00 Test Item Value Reference Range Interpretation Comments Eosinophils (test code = 0.2 See_Comment [A utomated message] The Eosinophils) system which ge nerated this result tra nsmitted reference range : <=4.0. The reference r malcolm was not used to int erpret this result as normal/abnormal . [place] 738071-03-23 17:34:00 Test Item Value Reference Range Interpretation Comments Basophils (test code = 0.5 See_Comment [Aut omated message] The Basophils) system which ge nerated this result tra nsmitted reference range : <=1.0. The reference r malcolm was not used to int erpret this result as normal/abnormal . [place] 738071-03-23 17:34:00 Test Item Value Reference Range Interpretation Comments Neutrophils # (test code = Neutrophils 12.1 1.5-8.1 #) [place] [address]-03-23 17:34:00 Test Item Value Reference Range Interpretation Comments Lymphocytes # (test code = Lymphocytes 1.7 1.0-5.5 #) [place] [address]-03-23 17:34:00 Test Item Value Reference Range Interpretation Comments Monocytes # (test code 0.9 See_Comment [Aut omated message] The = Monocytes #) system which generated this result tra nsmitted reference range : <=0.8. The reference r malcolm was not used to int erpret this result as normal/abnormal . [facility]GhilqdfYXUZSGSLSV4561-50-16 17:34:00 Test Item Value Reference Range Interpretation Comments Basophils # (test code 0.1 See_Comment [Aut omated message] The = Basophils #) system which generated this result tra nsmitted reference range : <=0.2. The reference r malcolm was not used to int erpret this result as normal/abnormal . [facility] NorthwestUgkmninMOYIIIWFJI8222-11-83 17:34:00 Test Item Value Reference Range Interpretation Comments Coronavirus (COVID-19) Not Detected (02/02/21 MILAGROS (test code = 12:34 PM) Coronavirus (COVID-19) MILAGROS) [facility] WillieNITROFURANTOIN:SUSC:PT:ISOLATE:ORDQN:[id number] 17:34:00 Test Item Value Reference Range Interpretation Comments Culture: Urine (test 10,000 - 50,000 CFU/mL code = Culture: Escherichia coli <10,000 Urine) CFU/mL Skin Amelia [facility]annNITROFURANTOIN:SUSC:PT:ISOLATE:ORDQN:[id number] 17:34:00 Test Item Value Reference Range Interpretation Comments Escherichia coli (test code Escherichia coli = Escherichia coli) [facility] AND [id number] 17:34:00 Test Item Value Reference Range Interpretation Comments UA Color (test code = Yellow *NA*(02/02/21 UA Color) 12:34 PM) [facility] AND [id number] 17:34:00 Test Item Value Reference Range Interpretation Comments UA Turbidity (test code Slight Cloudy = UA Turbidity) (02/02/21 12:34 PM) [facility] [id number] 17:34:00 Test Item Value Reference Range Interpretation Comments UA Spec Grav (test code = UA Spec 1.020 1 Grav) [facility] [id number] 17:34:00 Test Item Value Reference Range Interpretation Comments UA pH (test code = UA pH) 6.5 1 5.0-8.0 [facility] AND [id number] 17:34:00 Test Item Value Reference Range Interpretation Comments UA Protein (test code = Trace *ABN*(02/02/21 UA Protein) 12:34 PM) [facility] [id number] 17:34:00 Test Item Value Reference Range Interpretation Comments UA Glucose (test code Negative (02/02/21 12:34 = UA Glucose) PM) [facility] [id number] 17:34:00 Test Item Value Reference Range Interpretation Comments UA Ketones (test code = UA Ketones) 15 mg/dL [facility] [id number] 17:34:00 Test Item Value Reference Range Interpretation Comments UA Bili (test code = Small *ABN*(02/02/21 UA Bili) 12:34 PM) [facility] [id number] 17:34:00 Test Item Value Reference Range Interpretation Comments UA Blood (test code = Negative (02/02/21 12:34 UA Blood) PM) [facility] [id number] 17:34:00 Test Item Value Reference Range Interpretation Comments UA Urobilinogen (test code = UA 1.0 0.1-1.0 Urobilinogen) [facility] [id number] 17:34:00 Test Item Value Reference Range Interpretation Comments UA Nitrite (test code Negative (02/02/21 12:34 = UA Nitrite) PM) [facility] [id number] 17:34:00 Test Item Value Reference Range Interpretation Comments UA Leuk Est (test Moderate *ABN*(02/02/21 code = UA Leuk Est) 12:34 PM) [facility] [id number] 17:34:00 Test Item Value Reference Range Interpretation Comments UA Sq Epi (test code = UA Sq Moderate /LPF Epi) [facility] [id number] 17:34:00 Test Item Value Reference Range Interpretation Comments UA WBC (test code = UA WBC) 51-100 /HPF [facility] [id number] 17:34:00 Test Item Value Reference Range Interpretation Comments UA RBC (test code = UA RBC) 0-2 /HPF [facility] [id number] 17:34:00 Test Item Value Reference Range Interpretation Comments UA Bacteria (test code = UA Moderate /HPF Bacteria) [facility] [id number] 17:34:00 Test Item Value Reference Range Interpretation Comments UA Mucus (test code = UA Mucus) Moderate /LPF [facility]: [id number] 17:34:00 Test Item Value Reference Range Interpretation Comments Culture: Urine 10,000 - 50,000 CFU/mL Gram (test code = Negative Rods . Culture: Urine) Identification And Sensitivity Pending [facility] [id number] 09:12:00 RUN DATE: 10/09/18 [facility] *LIVE* PAGE 1 RUN TIME: 911 Specimen Inquiry RUN USER: INTERFACE --PATIENT: KAYY ORELLANA LOC: EULOGIO #: [id number] AGE/SX: 18/F ROOM: RE10/02/18[facility] DR: Fede Lieberman MD : 00 BED: DIS: STATUS: [facility] TLOC: SPEC #: [id number] RECD: 10/02/18-0506 STATUS: NOEMY ART #: [id number] EVELIO: 10/02/[address]: Fede Lieberman MD ENTERED: 10/06/18 SP TYPE: SURG SPEC OTHR DR: Osmar Portillo DO ORDERED: GM LEVEL 4 CODES: [id number] - STOMACH, NOS [id number] - SMALL INTESTINE [place]IES [place]: [place] [address] [place], [place] [id number] [email or web address] Fede Lieberman MD [address] [place] [address] [address] [place] [address] PROCEDURES: GM LEVEL 4 (Incomplete) TISSUES: 1. SMALL INTESTINE, NOS - Small intestine, duodenum, bx. 2. STOMACH, NOS- Stomach, antrum ,bx. FINAL DIAGNOSIS Small intestine, duodenum, bx.: Intact villous architecture, no evidence of celiac sprue. Stomach, antrum, bx.: Mild chronic gastritis, no Helicobacter organisms identified. GROSS AND MICROSCOPIC GROSS EXAMINATION: Received in formalin labeled duodenum biopsy are3 friedman tissue fragments measuring up to 0.3 [...] CONTINUED ON NEXT PAGE RUN DATE: 10/09/18 [facility] *LIVE* PAGE 2 RUN TIME: 911 Specimen InquiryRUN USER: INTERFACE SPEC #: [id number] PATIENT: KAYY ORELLANA #[id number] (Continued) GROSS AND MICROSCOPIC (Continued) lamina propria contains a mild inflammatory infiltrate. The Alcian blue/PAS stain does not show goblet cell metaplasia. The immunostain for Helicobacter organisms is negative. (When special stains have been reviewed, the appropriate positive/negative controls have been reviewed and are appropriately positive/negative). POST-OP DIAGNOSIS EGD-hiatal hernia PRE- OP DIAGNOSIS Blood in stool, GERD Signed SIGNATURE ON FILE Dom Coles DO 10/09/18911 END OF REPORT HEMATOLOGY 2018-09-24 23:46:00 Test Item Value Reference Range Interpretation Comments PTT (test code = PTT) 26.7 s 22.9-35.8 [id number] 23:46:00 Test Item Value Reference Range Interpretation Comments PT (test code = PT) 13.6 s 12.0-14.7 [facility] [id number] 23:46:00 Test Item Value Reference Range Interpretation Comments INR (test code = INR) 1.04 1 0.85-1.17 [facility] AND [id number] 23:46:00 Test Item Value Reference Range Interpretation Comments UA Nitrite (test code Negative (09/24/18 5:46 = UA Nitrite) PM) [facility] AND [id number] 23:46:00 Test Item Value Reference Range Interpretation Comments UA Leuk Est (test code Small *ABN*(09/24/18 = UA Leuk Est) 5:46 PM) [facility] AND [id number] 23:46:00 Test Item Value Reference Range Interpretation Comments UA Blood (test code = Large *ABN*(09/24/18 UA Blood) 5:46 PM) [facility] AND [id number] 23:46:00 Test Item Value Reference Range Interpretation Comments UA Urobilinogen (test code = UA 0.2 0.1-1.0 Urobilinogen) [facility] AND [id number] 23:46:00 Test Item Value Reference Range Interpretation Comments UA Ketones (test code Negative *NA*(09/24/18 = UA Ketones) 5:46 PM) [facility] AND [id number] 23:46:00 Test Item Value Reference Range Interpretation Comments UA Bili (test code = Negative *NA*(09/24/18 UA Bili) 5:46 PM) [facility] AND [id number] 23:46:00 Test Item Value Reference Range Interpretation Comments UA Spec Grav (test >=1.030 *ABN*(09/24/18 code = UA Spec Grav) 5:46 PM) [facility] AND [id number] 23:46:00 Test Item Value Reference Range Interpretation Comments UA Glucose (test code Negative (09/24/18 5:46 = UA Glucose) PM) [facility] AND [id number] 23:46:00 Test Item Value Reference Range Interpretation Comments UA pH (test code = UA pH) 6.0 1 5.0-8.0 [facility] AND [id number] 23:46:00 Test Item Value Reference Range Interpretation Comments UA Turbidity (test code Cloudy *ABN*(09/24/18 = UA Turbidity) 5:46 PM) [facility] [id number] 23:46:00 Test Item Value Reference Range Interpretation Comments UA Protein (test code Negative (09/24/18 5:46 = UA Protein) PM) [facility] [id number] 23:46:00 Test Item Value Reference Range Interpretation Comments UA Color (test code = Yellow *NA*(09/24/18 UA Color) 5:46 PM) [facility] [id number] 23:46:00 Test Item Value Reference Range Interpretation Comments UA WBC (test code = UA WBC) 3-5 /HPF [facility] [id number] 23:46:00 Test Item Value Reference Range Interpretation Comments UA Sq Epi (test code = UA Sq Epi) Many /LPF [facility] [id number] 23:46:00 Test Item Value Reference Range Interpretation Comments UA Mucus (test code = UA Mucus) Many /LPF [facility] [id number] 23:46:00 Test Item Value Reference Range Interpretation Comments UA Bacteria (test code = UA Many /HPF Bacteria) [facility] [id number] 23:46:00 Test Item Value Reference Range Interpretation Comments UA RBC (test code = 3-5 /HPF See_Comment [Automa perico message] The UA RBC) system which ge nerated this result tra nsmitted reference range : <=2. The reference range was not used to interpr et this result as sincere l/abnormal. [facility] [id number] 23:46:00 Test Item Value Reference Range Interpretation Comments U Preg (test code = U Negative (09/24/18 5:46 Preg) PM) [facility] [id number] 23:46:00 Test Item Value Reference Range Interpretation Comments PTT (test code = PTT) 26.7 s 22.9-35.8 [facility] [id number] 23:46:00 Test Item Value Reference Range Interpretation Comments PT (test code = PT) 13.6 s 12.0-14.7 [facility] [id number] 23:46:00 Test Item Value Reference Range Interpretation Comments INR (test code = INR) 1.04 1 0.85-1.17 [facility] AND [id number] 23:46:00 Test Item Value Reference Range Interpretation Comments UA Nitrite (test code Negative (09/24/18 5:46 = UA Nitrite) PM) [facility] AND [id number] 23:46:00 Test Item Value Reference Range Interpretation Comments UA Leuk Est (test code Small *ABN*(09/24/18 = UA Leuk Est) 5:46 PM) [facility] AND [id number] 23:46:00 Test Item Value Reference Range Interpretation Comments UA Blood (test code = Large *ABN*(09/24/18 UA Blood) 5:46 PM) [facility] AND [id number] 23:46:00 Test Item Value Reference Range Interpretation Comments UA Urobilinogen (test code = UA 0.2 0.1-1.0 Urobilinogen) [facility] AND [id number] 23:46:00 Test Item Value Reference Range Interpretation Comments UA Ketones (test code Negative *NA*(09/24/18 = UA Ketones) 5:46 PM) [facility] AND [id number] 23:46:00 Test Item Value Reference Range Interpretation Comments UA Bili (test code = Negative *NA*(09/24/18 UA Bili) 5:46 PM) [facility] AND [id number] 23:46:00 Test Item Value Reference Range Interpretation Comments UA Spec Grav (test >=1.030 *ABN*(09/24/18 code = UA Spec Grav) 5:46 PM) [facility] AND [id number] 23:46:00 Test Item Value Reference Range Interpretation Comments UA Glucose (test code Negative (09/24/18 5:46 = UA Glucose) PM) [facility] AND [id number] 23:46:00 Test Item Value Reference Range Interpretation Comments UA pH (test code = UA pH) 6.0 1 5.0-8.0 [facility] AND [id number] 23:46:00 Test Item Value Reference Range Interpretation Comments UA Turbidity (test code Cloudy *ABN*(09/24/18 = UA Turbidity) 5:46 PM) [facility] [id number] 23:46:00 Test Item Value Reference Range Interpretation Comments UA Protein (test code Negative (09/24/18 5:46 = UA Protein) PM) [facility] [id number] 23:46:00 Test Item Value Reference Range Interpretation Comments UA Color (test code = Yellow *NA*(09/24/18 UA Color) 5:46 PM) [facility] [id number] 23:46:00 Test Item Value Reference Range Interpretation Comments UA WBC (test code = UA WBC) 3-5 /HPF [facility] [id number] 23:46:00 Test Item Value Reference Range Interpretation Comments UA Sq Epi (test code = UA Sq Epi) Many /LPF [facility] [id number] 23:46:00 Test Item Value Reference Range Interpretation Comments UA Mucus (test code = UA Mucus) Many /LPF [facility] [id number] 23:46:00 Test Item Value Reference Range Interpretation Comments UA Bacteria (test code = UA Many /HPF Bacteria) [facility] [id number] 23:46:00 Test Item Value Reference Range Interpretation Comments UA RBC (test code = 3-5 /HPF See_Comment [Automa perico message] The UA RBC) system which ge nerated this result tra nsmitted reference range : <=2. The reference range was not used to interpr et this result as sincere l/abnormal. [facility] [id number] 23:46:00 Test Item Value Reference Range Interpretation Comments U Preg (test code = U Negative (09/24/18 5:46 Preg) PM) [facility]annCHEM [id number] 23:33:00 Test Item Value Reference Range Interpretation Comments Phosphorus (test code = Phosphorus) 4.1 2.5-4.5 [facility] [id number] 23:33:00 Test Item Value Reference Range Interpretation Comments Magnesium Lvl (test code = Magnesium 1.9 1.8-2.4 Lvl) [facility]CHE[facility] [id number] 23:33:00 Test Item Value Reference Range Interpretation Comments Lipase Lvl (test code = Lipase Lvl) 109 73-393 [facility]2018-11-12 23:33:00 Test Item Value Reference Range Interpretation Comments A/G Ratio (test code = A/G Ratio) 1.0 1 0.7-1.6 [facility]2018-11-12 23:33:00 Test Item Value Reference Range Interpretation Comments Globulin (test code = Globulin) 4.0 2.7-4.2 [facility]2018-11-12 23:33:00 Test Item Value Reference Range Interpretation Comments AGAP (test code = AGAP) 13.7 10.0-20.0 [facility]2018-11-12 23:33:00 Test Item Value Reference Range Interpretation Comments B/C Ratio (test code = B/C Ratio) 11 1 6-25 [facility]2018-11-12 23:33:00 Test Item Value Reference Range Interpretation Comments Bili Total (test code = Bili Total) 0.7 0.2-1.3 [facility]2018-11-12 23:33:00 Test Item Value Reference Range Interpretation Comments Alk Phos (test code = Alk Phos) 142 39-136 [facility]2018-11-12 23:33:00 Test Item Value Reference Range Interpretation Comments ALT (test code = ALT) 34 See_Comment [Auto mated message] The system which ge nerated this result transmit perico reference range : <=65. The reference range was not used to interpr et this result as sincere l/abnormal. [facility]2018-11-12 23:33:00 Test Item Value Reference Range Interpretation Comments AST (test code = AST) 22 See_Comment [Auto mated message] The system which ge nerated this result transmit perico reference range : <=37. The reference range was not used to interpr et this result as sincere l/abnormal. [facility]2018-11-12 23:33:00 Test Item Value Reference Range Interpretation Comments Albumin Lvl (test code = Albumin Lvl) 3.9 3.5-5.0 [facility]2018-11-12 23:33:00 Test Item Value Reference Range Interpretation Comments Total Protein (test code = Total 7.9 6.4-8.4 Protein) [facility]2018-11-12 23:33:00 Test Item Value Reference Range Interpretation Comments eGFR (test code = eGFR) 131 [facility]2018-11-12 23:33:00 Test Item Value Reference Range Interpretation Comments Calcium Lvl (test code = Calcium Lvl) 9.1 8.5-10.5 [facility]2018-11-12 23:33:00 Test Item Value Reference Range Interpretation Comments CO2 (test code = CO2) 24 24-32 [place] [id number] 23:33:00 Test Item Value Reference Range Interpretation Comments Chloride Lvl (test code = Chloride Lvl) 104 95-109 [place] 415418-11-12 23:33:00 Test Item Value Reference Range Interpretation Comments Potassium Lvl (test code = Potassium 3.7 3.5-5.1 Lvl) [facility]2018-11-12 23:33:00 Test Item Value Reference Range Interpretation Comments Sodium Lvl (test code = Sodium Lvl) 138 135-145 [facility]2018-11-12 23:33:00 Test Item Value Reference Range Interpretation Comments Glucose Lvl (test code = Glucose Lvl) 81 70-99 [facility]2018-11-12 23:33:00 Test Item Value Reference Range Interpretation Comments Creatinine Lvl (test code = Creatinine 0.63 0.50-1.40 Lvl) [facility]2018-11-12 23:33:00 Test Item Value Reference Range Interpretation Comments BUN (test code = BUN) 7 7-22 [facility]XjmdjshQTPSJXNKBN5870-10-45 23:33:00 Test Item Value Reference Range Interpretation Comments Basophils # (test code 0.1 See_Comment [Aut omated message] The = Basophils #) system which generated this result tra nsmitted reference range : <=0.2. The reference r malcolm was not used to int erpret this result as normal/abnormal . [facility] CampusJminkksFHRLMJYKMD4906-19-33 23:33:00 Test Item Value Reference Range Interpretation Comments Monocytes # (test code 0.5 See_Comment [Aut omated message] The = Monocytes #) system which generated this result tra nsmitted reference range : <=0.8. The reference r malcolm was not used to int erpret this result as normal/abnormal . [facility] CampusBcsdbakZGGFNVMOTV6735-93-31 23:33:00 Test Item Value Reference Range Interpretation Comments Eosinophils # (test code 0.3 See_Comment [A utomated message] The = Eosinophils #) system whic h generated this result tra nsmitted reference range : <=0.5. The reference r malcolm was not used to int erpret this result as normal/abnormal . [facility] CampusVaywfcoDSEUODLNEM3325-70-22 23:33:00 Test Item Value Reference Range Interpretation Comments Lymphocytes # (test code = Lymphocytes 2.3 1.0-5.5 #) [facility] CampusPgrbrraTXDYSYGVOP6267-14-09 23:33:00 Test Item Value Reference Range Interpretation Comments Basophils (test code = 0.9 See_Comment [Aut omated message] The Basophils) system which ge nerated this result tra nsmitted reference range : <=1.0. The reference r malcolm was not used to int erpret this result as normal/abnormal . [facility] CampusQyhobiyVAQCMDOJXO7835-59-07 23:33:00 Test Item Value Reference Range Interpretation Comments Lymphocytes (test code = Lymphocytes) 27.9 20.0-40.0 [facility] CampusDmcoddiLGIKRUEKMM3503-26-52 23:33:00 Test Item Value Reference Range Interpretation Comments Neutrophils # (test code = Neutrophils 4.9 1.5-8.1 #) [facility] CampusGziwexyTMERGHJFVL9723-39-05 23:33:00 Test Item Value Reference Range Interpretation Comments Monocytes (test code = Monocytes) 6.4 2.0-12.0 [facility] CampusTwlrhgoBNZXJEPLKC2561-11-89 23:33:00 Test Item Value Reference Range Interpretation Comments Eosinophils (test code = 4.1 See_Comment [A utomated message] The Eosinophils) system which ge nerated this result tra nsmitted reference range : <=4.0. The reference r malcolm was not used to int erpret this result as normal/abnormal . [facility] CampusUaphleiPCWBLHXXUA6691-12-32 23:33:00 Test Item Value Reference Range Interpretation Comments Segs (test code = Segs) 60.7 45.0-75.0 [facility] CampusYtahrdrBZULTOGQHC1605-72-18 23:33:00 Test Item Value Reference Range Interpretation Comments RDW (test code = RDW) 12.7 11.5-14.5 [facility] CampusVutrpmoLSEWSHAYMF2045-35-33 23:33:00 Test Item Value Reference Range Interpretation Comments MCHC (test code = MCHC) 34.2 32.0-36.0 [facility] CampusWivsjmvGFNGOLFDXJ1897-28-15 23:33:00 Test Item Value Reference Range Interpretation Comments Platelet (test code = Platelet) 204 133-450 [facility] CampusOtjkqbwABXVFEHCST5063-59-83 23:33:00 Test Item Value Reference Range Interpretation Comments MPV (test code = MPV) 9.1 7.4-10.4 [facility] CampusYisdidgKOIIZBXTHQ8806-45-38 23:33:00 Test Item Value Reference Range Interpretation Comments WBC (test code = WBC) 8.1 3.7-10.4 [facility] CampusRnhfdzwOYMEUFHKCA4105-23-11 23:33:00 Test Item Value Reference Range Interpretation Comments Hct (test code = Hct) 42.5 36.0-48.0 [facility] CampusPjgobfpUDXAEUJRFP8628-36-67 23:33:00 Test Item Value Reference Range Interpretation Comments MCV (test code = MCV) 87.8 80.0-98.0 [facility] CampusGgwszwnKVBAPSEODK3063-02-88 23:33:00 Test Item Value Reference Range Interpretation Comments Hgb (test code = Hgb) 14.5 12.0-16.0 [facility] CampusKkduxnbDXFEAHXRPY6672-99-57 23:33:00 Test Item Value Reference Range Interpretation Comments RBC (test code = RBC) 4.84 4.20-5.40 [facility] CampusLatwbueVVZVGXBDZF1399-86-13 23:33:00 Test Item Value Reference Range Interpretation Comments MCH (test code = MCH) 30.0 pg 27.0-31.0 [facility]2018-11-12 23:33:00 Test Item Value Reference Range Interpretation Comments Phosphorus (test code = Phosphorus) 4.1 2.5-4.5 [facility]2018-11-12 23:33:00 Test Item Value Reference Range Interpretation Comments Magnesium Lvl (test code = Magnesium 1.9 1.8-2.4 Lvl) [facility]2018-11-12 23:33:00 Test Item Value Reference Range Interpretation Comments Lipase Lvl (test code = Lipase Lvl) 109 73-393 [facility]2018-11-12 23:33:00 Test Item Value Reference Range Interpretation Comments A/G Ratio (test code = A/G Ratio) 1.0 1 0.7-1.6 [facility]2018-11-12 23:33:00 Test Item Value Reference Range Interpretation Comments Globulin (test code = Globulin) 4.0 2.7-4.2 [facility]2018-11-12 23:33:00 Test Item Value Reference Range Interpretation Comments AGAP (test code = AGAP) 13.7 10.0-20.0 [facility]2018-11-12 23:33:00 Test Item Value Reference Range Interpretation Comments B/C Ratio (test code = B/C Ratio) 11 1 6-25 [place] 415418-11-12 23:33:00 Test Item Value Reference Range Interpretation Comments Bili Total (test code = Bili Total) 0.7 0.2-1.3 [place] 415418-11-12 23:33:00 Test Item Value Reference Range Interpretation Comments Alk Phos (test code = Alk Phos) 142 39-136 [facility]2018-11-12 23:33:00 Test Item Value Reference Range Interpretation Comments ALT (test code = ALT) 34 See_Comment [Auto mated message] The system which ge nerated this result transmit perico reference range : <=65. The reference range was not used to interpr et this result as sincere l/abnormal. [facility]2018-11-12 23:33:00 Test Item Value Reference Range Interpretation Comments AST (test code = AST) 22 See_Comment [Auto mated message] The system which ge nerated this result transmit perico reference range : <=37. The reference range was not used to interpr et this result as sincere l/abnormal. [facility]2018-11-12 23:33:00 Test Item Value Reference Range Interpretation Comments Albumin Lvl (test code = Albumin Lvl) 3.9 3.5-5.0 [facility]2018-11-12 23:33:00 Test Item Value Reference Range Interpretation Comments Total Protein (test code = Total 7.9 6.4-8.4 Protein) [place] 415418-11-12 23:33:00 Test Item Value Reference Range Interpretation Comments eGFR (test code = eGFR) 131 [facility]2018-11-12 23:33:00 Test Item Value Reference Range Interpretation Comments Calcium Lvl (test code = Calcium Lvl) 9.1 8.5-10.5 [facility]2018-11-12 23:33:00 Test Item Value Reference Range Interpretation Comments CO2 (test code = CO2) 24 24-32 [place] 415418-11-12 23:33:00 Test Item Value Reference Range Interpretation Comments Chloride Lvl (test code = Chloride Lvl) 104 95-109 [place] [address]-11-12 23:33:00 Test Item Value Reference Range Interpretation Comments Potassium Lvl (test code = Potassium 3.7 3.5-5.1 Lvl) [facility]2018-11-12 23:33:00 Test Item Value Reference Range Interpretation Comments Sodium Lvl (test code = Sodium Lvl) 138 135-145 [place] 415418-11-12 23:33:00 Test Item Value Reference Range Interpretation Comments Glucose Lvl (test code = Glucose Lvl) 81 70-99 [place] 415418-11-12 23:33:00 Test Item Value Reference Range Interpretation Comments Creatinine Lvl (test code = Creatinine 0.63 0.50-1.40 Lvl) [facility]2018-11-12 23:33:00 Test Item Value Reference Range Interpretation Comments BUN (test code = BUN) 7 7-22 [facility] CampusCqwssrhGTBVARNPIP1165-84-47 23:33:00 Test Item Value Reference Range Interpretation Comments Basophils # (test code 0.1 See_Comment [Aut omated message] The = Basophils #) system which generated this result tra nsmitted reference range : <=0.2. The reference r malcolm was not used to int erpret this result as normal/abnormal . [place] [address]-11-12 23:33:00 Test Item Value Reference Range Interpretation Comments Monocytes # (test code 0.5 See_Comment [Aut omated message] The = Monocytes #) system which generated this result tra nsmitted reference range : <=0.8. The reference r malcolm was not used to int erpret this result as normal/abnormal . [place] 542138-11-12 23:33:00 Test Item Value Reference Range Interpretation Comments Eosinophils # (test code 0.3 See_Comment [A utomated message] The = Eosinophils #) system whic h generated this result tra nsmitted reference range : <=0.5. The reference r malcolm was not used to int erpret this result as normal/abnormal . [facility] CampusDkotylmHREVZZBVFS6186-21-64 23:33:00 Test Item Value Reference Range Interpretation Comments Lymphocytes # (test code = Lymphocytes 2.3 1.0-5.5 #) [facility] CampusBprgbkwAYQEJQLZQU0277-93-37 23:33:00 Test Item Value Reference Range Interpretation Comments Basophils (test code = 0.9 See_Comment [Aut omated message] The Basophils) system which ge nerated this result tra nsmitted reference range : <=1.0. The reference r malcolm was not used to int erpret this result as normal/abnormal . [facility] CampusPaalffoRHRVZUKDVZ4151-28-88 23:33:00 Test Item Value Reference Range Interpretation Comments Lymphocytes (test code = Lymphocytes) 27.9 20.0-40.0 [facility] CampusIcokqbhJQLTCOOBTZ8496-62-09 23:33:00 Test Item Value Reference Range Interpretation Comments Neutrophils # (test code = Neutrophils 4.9 1.5-8.1 #) [facility] CampusDneuoqwYHSLXRAJUD7064-90-06 23:33:00 Test Item Value Reference Range Interpretation Comments Monocytes (test code = Monocytes) 6.4 2.0-12.0 [facility] CampusOsbjfuqCZGJCQITXG2718-38-59 23:33:00 Test Item Value Reference Range Interpretation Comments Eosinophils (test code = 4.1 See_Comment [A utomated message] The Eosinophils) system which ge nerated this result tra nsmitted reference range : <=4.0. The reference r malcolm was not used to int erpret this result as normal/abnormal . [facility] CampusGasxahgVUUATBVXOU6467-21-27 23:33:00 Test Item Value Reference Range Interpretation Comments Segs (test code = Segs) 60.7 45.0-75.0 [facility] CampusUwbfxhtPFEJLFVQQT1756-70-05 23:33:00 Test Item Value Reference Range Interpretation Comments RDW (test code = RDW) 12.7 11.5-14.5 [facility] CampusWykiamoFCYZIWDXEV1760-36-30 23:33:00 Test Item Value Reference Range Interpretation Comments MCHC (test code = MCHC) 34.2 32.0-36.0 [facility] CampusZqsfwohODTLIEQQYT5604-34-38 23:33:00 Test Item Value Reference Range Interpretation Comments Platelet (test code = Platelet) 204 133-450 [facility] CampusXgrilqmEDEFUTSEZZ6047-99-84 23:33:00 Test Item Value Reference Range Interpretation Comments MPV (test code = MPV) 9.1 7.4-10.4 [facility] CampusThbuzgwRICIVNBEHA0476-45-24 23:33:00 Test Item Value Reference Range Interpretation Comments WBC (test code = WBC) 8.1 3.7-10.4 [facility] CampusYabjqotYBSUUMMUTT3119-11-24 23:33:00 Test Item Value Reference Range Interpretation Comments Hct (test code = Hct) 42.5 36.0-48.0 [place] 542138-11-12 23:33:00 Test Item Value Reference Range Interpretation Comments MCV (test code = MCV) 87.8 80.0-98.0 [facility] CampusIdhzuwgSHRZRMSEFZ7269-16-68 23:33:00 Test Item Value Reference Range Interpretation Comments Hgb (test code = Hgb) 14.5 12.0-16.0 [facility] CampusDnklbmmINHTHXASPR0925-89-11 23:33:00 Test Item Value Reference Range Interpretation Comments RBC (test code = RBC) 4.84 4.20-5.40 [facility] CampusDhhgbbhSWSFWLPSBN1726-55-36 23:33:00 Test Item Value Reference Range Interpretation Comments MCH (test code = MCH) 30.0 pg 27.0-31.0 [facility]] CBC (INCLUDES DIFF/PLT)2018-07-31 15:19:01 Test Item Value Reference Range Interpretation Comments WBC (test code = 6690-2) 9.2 {K/CMM} 3.7-10.4 RBC (test code = 789-8) 4.77 {M/CMM} 4.20-5.40 Hgb (test code = 718-7) 14.2 g/dl 12.0-16.0 Hct (test code = 85572-4) 42.3 % 36.0-48.0 MCV (test code = 787-2) 88.6 fL 80.0-98.0 MCH (test code = 785-6) 29.7 pg 27.0-31.0 MCHC (test code = 786-4) 33.5 g/dl 32.0-36.0 RDW (test code = 788-0) 13.3 % 11.5-14.5 Platelet (test code = 36542-2) 233 {K/CMM} 133-450 Mean Platelet Volume (test code 9.7 fL 7.4-10.4 = 46729-0) [facility]] CMP W/JCRI4068-47-06 15:19:01 Test Item Value Reference Range Interpretation Comments Sodium Level 139 {mEq/l} 135-145 (test code = 2951-2) Potassium Level 4.0 {mEq/l} 3.5-5.1 (test code = 2823-3) Chloride Level 109 {mEq/l} 95-109 (test code = 2075-0) Carbon Dioxide; 19 {mEq/l} 24-32 Below Low Threshold (test code = 8-9) AGAP (test code = 15.0 {mEq/l} 10.0-20.0 87739-6) Glucose Lvl (test 84 mg/dl 70-99 Adult refe rence range code = 2345-7) values reflec t the clinical guidel inesof the [place] [employer] es [employer]. Creatinine Lvl 0.60 mg/dl 0.50-1.40 (test code = 2160-0) Blood Urea 10 mg/dl 7-22 Nitrogen (test code = 3094-0) BUN/Creatinine 17 6-25 Ratio (test code = 3097-3) Total Protein; 8.5 g/dl 6.4-8.4 Above High Threshold (test code = 2885-2) Albumin Lvl (test 3.9 g/dl 3.5-5.0 code = 1751-7) Globulin; Above 4.6 g/dl 2.7-4.2 High Threshold (test code = 54361-2) A/G Ratio (test 0.8 0.7-1.6 code = 1759-0) Calcium Level 9.3 mg/dl 8.5-10.5 Total (test code = 37205-1) ALT; Above High 70 u/l 0-65 Threshold (test code = 1743-4) AST (test code = 28 u/l 0-37 27420-1) Alk Phos; Above 145 u/l 39-136 High Threshold (test code = 1783-0) Bili Total (test 0.8 mg/dl 0.2-1.3 code = 1974-2) eGFR (test code = 134 The eGFR i s calculated 59824-2) {ML/MIN/1.7} using the CKD-E PI formula. In [...] be multiplied by t he estimated BMI. [facility]] Ujwckqdddjfe8574-09-87 15:19:01 Test Item Value Reference Range Interpretation Comments Segmented Neutrophils (test code 63.3 % 45.0-75.0 = 03961-9) Monocytes (test code = 59275-2) 7.6 % 2.0-12.0 Lymphocytes (test code = 09552-4) 27.4 % 20.0-40.0 Eosinophils (test code = 10434-1) 1.2 % 0.0-4.0 Basophils (test code = 706-2) 0.5 % 0.0-1.0 Segs-Bands # (test code = 5.8 {K/CMM} 1.5-8.1 88887-9) Lymphocytes # (test code = 2.5 {K/CMM} 1.0-5.5 57383-7) Monocytes # (test code = 55605-0) 0.7 {K/CMM} 0.0-0.8 Eosinophils # (test code = 0.1 {K/CMM} 0.0-0.5 83177-2) [facility][O] Urine Dipstick (In Office)2017-12-19 11:53:00 Test Item Value Reference Range Interpretation Comments LEUKOCYTES (test code = LEUKOCYTES) neg N NITRITE; Normal (test code = 48288-0) neg N UROBILINOGEN; Normal (test code = 1.0 N 97373-4) PROTEIN; Normal (test code = 69129-3) neg N pH (test code = pH) 7.0 N URINE BLOOD; Normal (test code = neg N 68831-6) SPECIFIC GRAVITY; Normal (test code = 1.020 N 2965-2) KETONES; Normal (test code = 69375-0) neg N BILIRUBIN; Normal (test code = 26388-8) neg N GLUCOSE; Normal (test code = 1547-9) neg N [place] [facility] Use Senkvlslu7046-52-34 15:40:00 Test Item Value Reference Range Interpretation Comments Completed (test code = Completed) DONE [facility]2017-11-30 15:42:00 Test Item Value Reference Range Interpretation Comments Lipase Lvl (test code = Lipase Lvl) 110 73-393 [facility]2017-11-30 15:42:00 Test Item Value Reference Range Interpretation Comments eGFR (test code = eGFR) See Comment [facility]2017-11-30 15:42:00 Test Item Value Reference Range Interpretation Comments Calcium Lvl (test code = Calcium Lvl) 9.0 8.5-10.5 [facility]2017-11-30 15:42:00 Test Item Value Reference Range Interpretation Comments Albumin Lvl (test code = Albumin Lvl) 3.7 3.5-5.0 [facility]2017-11-30 15:42:00 Test Item Value Reference Range Interpretation Comments ALT (test code = ALT) 22 See_Comment [Auto mated message] The system which ge nerated this result transmit perico reference range : <=65. The reference range was not used to interpr et this result as sincere l/abnormal. [facility]2017-11-30 15:42:00 Test Item Value Reference Range Interpretation Comments Total Protein (test code = Total 7.9 6.4-8.4 Protein) [facility]2017-11-30 15:42:00 Test Item Value Reference Range Interpretation Comments Alk Phos (test code = Alk Phos) 135 39-136 [facility]2017-11-30 15:42:00 Test Item Value Reference Range Interpretation Comments AST (test code = AST) 36 See_Comment [Auto mated message] The system which ge nerated this result transmit perico reference range : <=37. The reference range was not used to interpr et this result as sincere l/abnormal. [facility]2017-11-30 15:42:00 Test Item Value Reference Range Interpretation Comments Bili Total (test code = Bili Total) 0.8 0.2-1.3 [facility]2017-11-30 15:42:00 Test Item Value Reference Range Interpretation Comments Creatinine Lvl (test code = Creatinine 0.57 0.50-1.40 Lvl) [facility]2017-11-30 15:42:00 Test Item Value Reference Range Interpretation Comments Potassium Lvl (test code = Potassium 4.7 3.5-5.1 Lvl) [facility]2017-11-30 15:42:00 Test Item Value Reference Range Interpretation Comments Sodium Lvl (test code = Sodium Lvl) 139 135-145 [facility]2017-11-30 15:42:00 Test Item Value Reference Range Interpretation Comments Chloride Lvl (test code = Chloride Lvl) 108 95-109 [facility]2017-11-30 15:42:00 Test Item Value Reference Range Interpretation Comments CO2 (test code = CO2) 23 24-32 [facility]2017-11-30 15:42:00 Test Item Value Reference Range Interpretation Comments BUN (test code = BUN) 7 7-22 [facility]2017-11-30 15:42:00 Test Item Value Reference Range Interpretation Comments Glucose Lvl (test code = Glucose Lvl) 94 70-99 [facility]2017-11-30 15:42:00 Test Item Value Reference Range Interpretation Comments Globulin (test code = Globulin) 4.2 2.7-4.2 [facility]2017-11-30 15:42:00 Test Item Value Reference Range Interpretation Comments A/G Ratio (test code = A/G Ratio) 0.9 0.7-1.6 [facility]2017-11-30 15:42:00 Test Item Value Reference Range Interpretation Comments AGAP (test code = AGAP) 12.7 10.0-20.0 [facility]2017-11-30 15:42:00 Test Item Value Reference Range Interpretation Comments B/C Ratio (test code = B/C Ratio) 12 6-25 [facility]cilxaOGCUUFGKQFQTY0332-32-68 15:42:00 Test Item Value Reference Range Interpretation Comments S Preg (test code = S Negative *NA*(10/12/17 Preg) 9:42 AM) [facility] CampusZlvrilwCTDNIQTKTM3660-66-98 15:42:00 Test Item Value Reference Range Interpretation Comments Lymphocytes (test code = Lymphocytes) 24.1 20.0-40.0 [facility] CampusTpzvsgqXZOXXZJGFE6905-32-78 15:42:00 Test Item Value Reference Range Interpretation Comments Segs (test code = Segs) 67.6 45.0-75.0 [facility] CampusLeryhikVJBPDFWVQK0028-75-10 15:42:00 Test Item Value Reference Range Interpretation Comments Basophils # (test code 0.1 See_Comment [Aut omated message] The = Basophils #) system which generated this result tra nsmitted reference range : <=0.2. The reference r malcolm was not used to int erpret this result as normal/abnormal . [facility] CampusYjdyfpeIMGYJULYKQ8694-21-89 15:42:00 Test Item Value Reference Range Interpretation Comments Segs-Bands # (test code = Segs-Bands #) 5.4 1.5-8.1 [facility] CampusErohgsvHUOGMBKOMA2801-73-39 15:42:00 Test Item Value Reference Range Interpretation Comments Basophils (test code = 0.8 See_Comment [Aut omated message] The Basophils) system which ge nerated this result tra nsmitted reference range : <=1.0. The reference r malcolm was not used to int erpret this result as normal/abnormal . [facility] CampusWwxlckgPNKVFHHDNV3011-62-20 15:42:00 Test Item Value Reference Range Interpretation Comments Eosinophils (test code = 0.6 See_Comment [A utomated message] The Eosinophils) system which ge nerated this result tra nsmitted reference range : <=4.0. The reference r malcolm was not used to int erpret this result as normal/abnormal . [facility] CampusFduyedzCBLYMCHPBN7539-05-19 15:42:00 Test Item Value Reference Range Interpretation Comments Monocytes (test code = Monocytes) 6.9 2.0-12.0 [facility] CampusZtrjbwxJEEGPPVRNV3724-44-41 15:42:00 Test Item Value Reference Range Interpretation Comments Monocytes # (test code 0.6 See_Comment [Aut omated message] The = Monocytes #) system which generated this result tra nsmitted reference range : <=0.8. The reference r malcolm was not used to int erpret this result as normal/abnormal . [facility] CampusNoredboNFVQFRSGFZ0947-55-83 15:42:00 Test Item Value Reference Range Interpretation Comments Lymphocytes # (test code = Lymphocytes 1.9 1.0-5.5 #) [facility] CampusMooktbxXMSUGXCKZN7040-39-07 15:42:00 Test Item Value Reference Range Interpretation Comments MPV (test code = MPV) 9.4 7.4-10.4 [facility] CampusWfondjgHCAIIBMMRM3805-13-31 15:42:00 Test Item Value Reference Range Interpretation Comments MCHC (test code = MCHC) 34.0 32.0-36.0 [facility] CampusDqlomtnASIQWPSGAS6951-70-86 15:42:00 Test Item Value Reference Range Interpretation Comments Hgb (test code = Hgb) 14.2 12.0-16.0 [facility] CampusQlhsyusBAOHBURYRM8225-38-30 15:42:00 Test Item Value Reference Range Interpretation Comments Platelet (test code = Platelet) 181 133-450 [facility] CampusXffijuhOBKXVANYFE2721-89-18 15:42:00 Test Item Value Reference Range Interpretation Comments RDW (test code = RDW) 12.6 11.5-14.5 [facility] CampusYgouzyeCKTRLGSWMA2096-40-20 15:42:00 Test Item Value Reference Range Interpretation Comments RBC (test code = RBC) 4.72 4.20-5.40 [facility] CampusIqtmwvnVFZTVGFSWI7194-64-53 15:42:00 Test Item Value Reference Range Interpretation Comments WBC (test code = WBC) 8.0 3.7-10.4 [facility] CampusGhxxtlkHUDHGZOJWR2825-07-80 15:42:00 Test Item Value Reference Range Interpretation Comments MCH (test code = MCH) 30.0 pg 27.0-31.0 [facility] CampusBzyqtakUNCRJEZAVV6167-53-92 15:42:00 Test Item Value Reference Range Interpretation Comments MCV (test code = MCV) 88.2 80.0-98.0 [facility] CampusMpjusaqEFZTGAHFXK5705-72-19 15:42:00 Test Item Value Reference Range Interpretation Comments Hct (test code = Hct) 41.6 36.0-48.0 [facility] [facility]2017-11-30 15:42:00 Test Item Value Reference Range Interpretation Comments Lipase Lvl (test code = Lipase Lvl) 110 73-393 [facility]2017-11-30 15:42:00 Test Item Value Reference Range Interpretation Comments eGFR (test code = eGFR) See Comment [facility]2017-11-30 15:42:00 Test Item Value Reference Range Interpretation Comments Calcium Lvl (test code = Calcium Lvl) 9.0 8.5-10.5 [facility]2017-11-30 15:42:00 Test Item Value Reference Range Interpretation Comments Albumin Lvl (test code = Albumin Lvl) 3.7 3.5-5.0 [facility]2017-11-30 15:42:00 Test Item Value Reference Range Interpretation Comments ALT (test code = ALT) 22 See_Comment [Auto mated message] The system which ge nerated this result transmit perico reference range : <=65. The reference range was not used to interpr et this result as sincere l/abnormal. [facility]2017-11-30 15:42:00 Test Item Value Reference Range Interpretation Comments Total Protein (test code = Total 7.9 6.4-8.4 Protein) [facility]2017-11-30 15:42:00 Test Item Value Reference Range Interpretation Comments Alk Phos (test code = Alk Phos) 135 39-136 [facility]2017-11-30 15:42:00 Test Item Value Reference Range Interpretation Comments AST (test code = AST) 36 See_Comment [Auto mated message] The system which ge nerated this result transmit perico reference range : <=37. The reference range was not used to interpr et this result as sincere l/abnormal. [facility]2017-11-30 15:42:00 Test Item Value Reference Range Interpretation Comments Bili Total (test code = Bili Total) 0.8 0.2-1.3 [facility]2017-11-30 15:42:00 Test Item Value Reference Range Interpretation Comments Creatinine Lvl (test code = Creatinine 0.57 0.50-1.40 Lvl) [facility]2017-11-30 15:42:00 Test Item Value Reference Range Interpretation Comments Potassium Lvl (test code = Potassium 4.7 3.5-5.1 Lvl) [facility]2017-11-30 15:42:00 Test Item Value Reference Range Interpretation Comments Sodium Lvl (test code = Sodium Lvl) 139 135-145 [facility]2017-11-30 15:42:00 Test Item Value Reference Range Interpretation Comments Chloride Lvl (test code = Chloride Lvl) 108 95-109 [facility]2017-11-30 15:42:00 Test Item Value Reference Range Interpretation Comments CO2 (test code = CO2) 23 24-32 [facility]2017-11-30 15:42:00 Test Item Value Reference Range Interpretation Comments BUN (test code = BUN) 7 7-22 [facility]2017-11-30 15:42:00 Test Item Value Reference Range Interpretation Comments Glucose Lvl (test code = Glucose Lvl) 94 70-99 [facility]2017-11-30 15:42:00 Test Item Value Reference Range Interpretation Comments Globulin (test code = Globulin) 4.2 2.7-4.2 [facility]2017-11-30 15:42:00 Test Item Value Reference Range Interpretation Comments A/G Ratio (test code = A/G Ratio) 0.9 0.7-1.6 [facility]2017-11-30 15:42:00 Test Item Value Reference Range Interpretation Comments AGAP (test code = AGAP) 12.7 10.0-20.0 [facility]2017-11-30 15:42:00 Test Item Value Reference Range Interpretation Comments B/C Ratio (test code = B/C Ratio) 12 6-25 [facility]68 15:42:00 Test Item Value Reference Range Interpretation Comments S Preg (test code = S Negative *NA*(10/12/17 Preg) 9:42 AM) [facility]YrrokypJMRFQXZBNW7567-39-58 15:42:00 Test Item Value Reference Range Interpretation Comments Lymphocytes (test code = Lymphocytes) 24.1 20.0-40.0 [facility] CampusHxxioycGQPIZRTYPZ9277-14-33 15:42:00 Test Item Value Reference Range Interpretation Comments Segs (test code = Segs) 67.6 45.0-75.0 [facility] CampusRvvqkgjPJTCURTFIJ5508-11-95 15:42:00 Test Item Value Reference Range Interpretation Comments Basophils # (test code 0.1 See_Comment [Aut omated message] The = Basophils #) system which generated this result tra nsmitted reference range : <=0.2. The reference r malcolm was not used to int erpret this result as normal/abnormal . [facility] CampusXxoqnvqUGILLHCYTL2347-82-12 15:42:00 Test Item Value Reference Range Interpretation Comments Segs-Bands # (test code = Segs-Bands #) 5.4 1.5-8.1 [facility] CampusDyyqeutDJHUEEONKY2220-18-60 15:42:00 Test Item Value Reference Range Interpretation Comments Basophils (test code = 0.8 See_Comment [Aut omated message] The Basophils) system which ge nerated this result tra nsmitted reference range : <=1.0. The reference r malcolm was not used to int erpret this result as normal/abnormal . [facility] CampusFbweuurKEUJUHEBCL6516-11-69 15:42:00 Test Item Value Reference Range Interpretation Comments Eosinophils (test code = 0.6 See_Comment [A utomated message] The Eosinophils) system which ge nerated this result tra nsmitted reference range : <=4.0. The reference r malcolm was not used to int erpret this result as normal/abnormal . [facility] CampusTbiyageNMTACCRSOJ1502-60-17 15:42:00 Test Item Value Reference Range Interpretation Comments Monocytes (test code = Monocytes) 6.9 2.0-12.0 [facility] CampusCttbawwLJHIALOKQF2430-66-98 15:42:00 Test Item Value Reference Range Interpretation Comments Monocytes # (test code 0.6 See_Comment [Aut omated message] The = Monocytes #) system which generated this result tra nsmitted reference range : <=0.8. The reference r malcolm was not used to int erpret this result as normal/abnormal . [facility] CampusRzkntkuSOTBNDRLJY5405-49-06 15:42:00 Test Item Value Reference Range Interpretation Comments Lymphocytes # (test code = Lymphocytes 1.9 1.0-5.5 #) [facility] CampusJiqpjguYKUBXQTLUF4189-87-74 15:42:00 Test Item Value Reference Range Interpretation Comments MPV (test code = MPV) 9.4 7.4-10.4 [facility] CampusYgoioniVYZQWIZWIE3089-14-62 15:42:00 Test Item Value Reference Range Interpretation Comments MCHC (test code = MCHC) 34.0 32.0-36.0 [facility] CampusYurthnsLTYSTQUJSO4778-96-31 15:42:00 Test Item Value Reference Range Interpretation Comments Hgb (test code = Hgb) 14.2 12.0-16.0 [facility] CampusUftyhweWFEATDIOGZ3457-11-16 15:42:00 Test Item Value Reference Range Interpretation Comments Platelet (test code = Platelet) 181 133-450 [facility] CampusDhevlxsSUMDCZZZIM4318-39-22 15:42:00 Test Item Value Reference Range Interpretation Comments RDW (test code = RDW) 12.6 11.5-14.5 [facility] CampusGmdzsvrDWNKROESEZ1361-78-79 15:42:00 Test Item Value Reference Range Interpretation Comments RBC (test code = RBC) 4.72 4.20-5.40 [facility] CampusXngcdliSFZNILKLNE0428-02-20 15:42:00 Test Item Value Reference Range Interpretation Comments WBC (test code = WBC) 8.0 3.7-10.4 [facility] CampusZumfctnPNOJQCNVBA5058-19-17 15:42:00 Test Item Value Reference Range Interpretation Comments MCH (test code = MCH) 30.0 pg 27.0-31.0 [facility] CampusQtstzwxHYXNCWQVGO1785-62-95 15:42:00 Test Item Value Reference Range Interpretation Comments MCV (test code = MCV) 88.2 80.0-98.0 [facility] CampusLfaqcglITCLDKXBDM4596-80-96 15:42:00 Test Item Value Reference Range Interpretation Comments Hct (test code = Hct) 41.6 36.0-48.0 [facility]2017-11-30 15:39:00 Test Item Value Reference Range Interpretation Comments UA Sq Epi (test code = UA Sq Moderate /LPF Epi) [facility] [id number] 15:39:00 Test Item Value Reference Range Interpretation Comments UA RBC (test code = 3 See_Comment [Automa perico message] The UA RBC) system which ge nerated this result transmit perico reference range : <=2. The reference range was not used to interpr et this result as sincere l/abnormal. [facility] AND [id number] 15:39:00 Test Item Value Reference Range Interpretation Comments UA Bacteria (test code = UA Occasional /HPF Bacteria) [facility] AND [id number] 15:39:00 Test Item Value Reference Range Interpretation Comments UA WBC (test code = 10 See_Comment [Automa perico message] The UA WBC) system which ge nerated this result transmit perico reference range : <=5. The reference range was not used to interpr et this result as sincere l/abnormal. [facility] AND [id number] 15:39:00 Test Item Value Reference Range Interpretation Comments UA [place] Yeast (test code = UA [place] Few /HPF Yeast) [facility] AND [id number] 15:39:00 Test Item Value Reference Range Interpretation Comments UA Mucus (test code = UA Mucus) Few /LPF [facility] AND [id number] 15:39:00 Test Item Value Reference Range Interpretation Comments UA Glucose (test code = UA Negative mg/dL Glucose) [facility] AND [id number] 15:39:00 Test Item Value Reference Range Interpretation Comments UA Protein (test code = UA Negative mg/dL Protein) [facility] AND [id number] 15:39:00 Test Item Value Reference Range Interpretation Comments UA Ketones (test code = UA Trace mg/dL Ketones) [facility] AND [id number] 15:39:00 Test Item Value Reference Range Interpretation Comments UA Bili (test code = Negative *NA*(10/12/17 UA Bili) 9:39 AM) [facility] AND [id number] 15:39:00 Test Item Value Reference Range Interpretation Comments UA Blood (test code = Small *ABN*(10/12/17 UA Blood) 9:39 AM) [facility] AND [id number] 15:39:00 Test Item Value Reference Range Interpretation Comments UA Urobilinogen (test code = UA 2.0 0.1-1.0 Urobilinogen) [facility] AND [id number] 15:39:00 Test Item Value Reference Range Interpretation Comments UA Nitrite (test code Negative (10/12/17 9:39 = UA Nitrite) AM) [facility] AND [id number] 15:39:00 Test Item Value Reference Range Interpretation Comments UA Leuk Est (test Moderate *ABN*(10/12/17 code = UA Leuk Est) 9:39 AM) [facility] AND [id number] 15:39:00 Test Item Value Reference Range Interpretation Comments UA Turbidity (test code Slight *ABN*(10/12/17 = UA Turbidity) 9:39 AM) [facility] AND [id number] 15:39:00 Test Item Value Reference Range Interpretation Comments UA Spec Grav (test code = UA Spec Grav) 1.024 [facility] AND [id number] 15:39:00 Test Item Value Reference Range Interpretation Comments UA pH (test code = UA pH) 6.0 5.0-8.0 [facility] AND [id number] 15:39:00 Test Item Value Reference Range Interpretation Comments UA Color (test code = Yellow *NA*(10/12/17 UA Color) 9:39 AM) [facility] AND [id number] 15:39:00 Test Item Value Reference Range Interpretation Comments UA Sq Epi (test code = UA Sq Moderate /LPF Epi) [facility] AND [id number] 15:39:00 Test Item Value Reference Range Interpretation Comments UA RBC (test code = 3 See_Comment [Automa perico message] The UA RBC) system which ge nerated this result transmit perico reference range : <=2. The reference range was not used to interpr et this result as sincere l/abnormal. [facility] AND [id number] 15:39:00 Test Item Value Reference Range Interpretation Comments UA Bacteria (test code = UA Occasional /HPF Bacteria) [facility] AND [id number] 15:39:00 Test Item Value Reference Range Interpretation Comments UA WBC (test code = 10 See_Comment [Automa perico message] The UA WBC) system which ge nerated this result transmit perico reference range : <=5. The reference range was not used to interpr et this result as sincere l/abnormal. [facility] AND [id number] 15:39:00 Test Item Value Reference Range Interpretation Comments UA [place] Yeast (test code = UA [place] Few /HPF Yeast) [facility] AND [id number] 15:39:00 Test Item Value Reference Range Interpretation Comments UA Mucus (test code = UA Mucus) Few /LPF [facility] AND [id number] 15:39:00 Test Item Value Reference Range Interpretation Comments UA Glucose (test code = UA Negative mg/dL Glucose) [facility] AND [id number] 15:39:00 Test Item Value Reference Range Interpretation Comments UA Protein (test code = UA Negative mg/dL Protein) [facility] AND [id number] 15:39:00 Test Item Value Reference Range Interpretation Comments UA Ketones (test code = UA Trace mg/dL Ketones) [facility] AND [id number] 15:39:00 Test Item Value Reference Range Interpretation Comments UA Bili (test code = Negative *NA*(10/12/17 UA Bili) 9:39 AM) [facility] AND [id number] 15:39:00 Test Item Value Reference Range Interpretation Comments UA Blood (test code = Small *ABN*(10/12/17 UA Blood) 9:39 AM) [facility] AND [id number] 15:39:00 Test Item Value Reference Range Interpretation Comments UA Urobilinogen (test code = UA 2.0 0.1-1.0 Urobilinogen) [facility] AND [id number] 15:39:00 Test Item Value Reference Range Interpretation Comments UA Nitrite (test code Negative (10/12/17 9:39 = UA Nitrite) AM) [facility] AND [id number] 15:39:00 Test Item Value Reference Range Interpretation Comments UA Leuk Est (test Moderate *ABN*(10/12/17 code = UA Leuk Est) 9:39 AM) [facility] AND [id number] 15:39:00 Test Item Value Reference Range Interpretation Comments UA Turbidity (test code Slight *ABN*(10/12/17 = UA Turbidity) 9:39 AM) [facility] AND [id number] 15:39:00 Test Item Value Reference Range Interpretation Comments UA Spec Grav (test code = UA Spec Grav) 1.024 [facility] [id number] 15:39:00 Test Item Value Reference Range Interpretation Comments UA pH (test code = UA pH) 6.0 5.0-8.0 [facility] [id number] 15:39:00 Test Item Value Reference Range Interpretation Comments UA Color (test code = Yellow *NA*(10/12/17 UA Color) 9:39 AM) [facility] [id number] 03:22:00 Test Item Value Reference Range Interpretation Comments Lipase Lvl (test code = Lipase Lvl) 118 73-393 [id number] 03:22:00 Test Item Value Reference Range Interpretation Comments AGAP (test code = AGAP) 12.6 10.0-20.0 [facility] HospitalXsnhasyYQPPDICMQIMZ1794-72-65 03:22:00 Test Item Value Reference Range Interpretation Comments A/G Ratio (test code = A/G Ratio) 1.2 0.7-1.6 [facility] HospitalDrzakwrBRBTAXVELVPJ3115-25-15 03:22:00 Test Item Value Reference Range Interpretation Comments Globulin (test code = Globulin) 3.7 2.0-4.0 [facility] Hosp[id number] 03:22:00 Test Item Value Reference Range Interpretation Comments B/C Ratio (test code = B/C Ratio) 20 6-25 [facility] HospitalWopkuooIPDNCCSQLRRF3573-93-51 03:22:00 Test Item Value Reference Range Interpretation Comments eGFR (test code = eGFR) 159 [facility] HospitalEcziyvjNRMFHIDWCXFP8878-71-61 03:22:00 Test Item Value Reference Range Interpretation Comments Sodium Lvl (test code = Sodium Lvl) 139 135-145 [facility] HospitalSouhcofHEONHQXPPGTE4773-89-32 03:22:00 Test Item Value Reference Range Interpretation Comments Creatinine Lvl (test code = Creatinine 0.4 0.5-1.4 Lvl) [facility] HospitalAcrjxdyYWMHXNPPYZBX0757-16-29 03:22:00 Test Item Value Reference Range Interpretation Comments BUN (test code = BUN) 8 7-22 [facility] HospitalUrbegbaKKJBXBXYFMLK0368-25-48 03:22:00 Test Item Value Reference Range Interpretation Comments Chloride Lvl (test code = Chloride Lvl) 105 95-109 [facility] HospitalUibxxinTTWZCGBSHMLX3146-20-13 03:22:00 Test Item Value Reference Range Interpretation Comments Potassium Lvl (test code = Potassium 3.6 3.5-5.1 Lvl) [facility] HospitalFbcztuoPMHWGDBHJFQW0903-10-37 03:22:00 Test Item Value Reference Range Interpretation Comments CO2 (test code = CO2) 25 24-32 [facility] HospitalRcvdbntYUMVVZTTJQAC7329-03-92 03:22:00 Test Item Value Reference Range Interpretation Comments Total Protein (test code = Total 8.0 6.4-8.4 Protein) [facility] Hospi[id number] 03:22:00 Test Item Value Reference Range Interpretation Comments Calcium Lvl (test code = Calcium Lvl) 9.4 8.5-10.5 [facility] Hospital[id number] 03:22:00 Test Item Value Reference Range Interpretation Comments AST (test code = AST) 17 See_Comment [Auto mated message] The system which ge nerated this result transmit perico reference range : <=37. The reference range was not used to interpr et this result as sincere l/abnormal. [facility] HospitalXugqifrLIPMCXZELCGG0805-35-83 03:22:00 Test Item Value Reference Range Interpretation Comments Bili Total (test code = Bili Total) 1.2 0.2-1.3 [facility] HospitalZvfjmbpIXAODHJIHGPX3264-25-09 03:22:00 Test Item Value Reference Range Interpretation Comments ALT (test code = ALT) 19 See_Comment [Auto mated message] The system which ge nerated this result transmit perico reference range : <=65. The reference range was not used to interpr et this result as sincere l/abnormal. [facility] HospitalWfqzxsyHZHCVQFBILXW6809-43-28 03:22:00 Test Item Value Reference Range Interpretation Comments Albumin Lvl (test code = Albumin Lvl) 4.3 3.5-5.0 [facility] HospitalDhcegycWCVYABDRRHFD2872-30-81 03:22:00 Test Item Value Reference Range Interpretation Comments Alk Phos (test code = Alk Phos) 142 80-406 [facility] HospitalCdfrkgoYICIANPJXFLU1849-85-80 03:22:00 Test Item Value Reference Range Interpretation Comments Glucose Lvl (test code = Glucose Lvl) 86 70-99 [facility] CampusSswjtgqNAUIIEHMEK2173-18-24 03:22:00 Test Item Value Reference Range Interpretation Comments Segs-Bands # (test code = Segs-Bands #) 6.9 1.5-8.1 [facility] CampusGvbsxhbNAJSMBBWDC4483-66-41 03:22:00 Test Item Value Reference Range Interpretation Comments Lymphocytes # (test code = Lymphocytes 2.3 1.0-5.5 #) [facility] CampusXoatgeyEDANNUJSPL3706-58-00 03:22:00 Test Item Value Reference Range Interpretation Comments Monocytes # (test code 0.6 See_Comment [Aut omated message] The = Monocytes #) system which generated this result tra nsmitted reference range : <=0.8. The reference r malcolm was not used to int erpret this result as normal/abnormal . [facility] CampusVxhvdbyNUGRBDKFVW3276-66-55 03:22:00 Test Item Value Reference Range Interpretation Comments Lymphocytes (test code = Lymphocytes) 23.2 20.0-40.0 [facility] CampusWgancquWGFFCNAOAU6024-46-69 03:22:00 Test Item Value Reference Range Interpretation Comments Monocytes (test code = Monocytes) 5.9 2.0-12.0 [facility] CampusGkkevrsHRIIWFYYYM3018-60-28 03:22:00 Test Item Value Reference Range Interpretation Comments Eosinophils (test code = 0.4 See_Comment [A utomated message] The Eosinophils) system which ge nerated this result tra nsmitted reference range : <=4.0. The reference r malcolm was not used to int erpret this result as normal/abnormal . [facility] CampusDvhpkynPJKSQQVHMA2446-57-63 03:22:00 Test Item Value Reference Range Interpretation Comments Basophils (test code = 0.4 See_Comment [Aut omated message] The Basophils) system which ge nerated this result tra nsmitted reference range : <=1.0. The reference r malcolm was not used to int erpret this result as normal/abnormal . [facility] CampusOwugsxmCNXRTXCIJV8014-60-34 03:22:00 Test Item Value Reference Range Interpretation Comments Segs (test code = Segs) 70.1 34.0-64.0 [facility] CampusPrkuttvWVIOCZQFBJ9287-02-80 03:22:00 Test Item Value Reference Range Interpretation Comments PTT (test code = PTT) 28.1 s 22.9-35.8 [facility] CampusExhbzqxUCSVOIHIPN7944-74-59 03:22:00 Test Item Value Reference Range Interpretation Comments INR (test code = INR) 1.02 0.85-1.17 [facility] CampusUltweqgQSALNMGOSO1075-06-86 03:22:00 Test Item Value Reference Range Interpretation Comments PT (test code = PT) 13.4 s 12.0-14.7 [facility] CampusYvoubdcQZAVQKBWCQ9253-16-71 03:22:00 Test Item Value Reference Range Interpretation Comments Hgb (test code = Hgb) 13.6 12.0-16.0 [facility] CampusFrigiatWGYDGNUZDD2164-05-45 03:22:00 Test Item Value Reference Range Interpretation Comments Hct (test code = Hct) 40.5 36.0-48.0 [facility] CampusZprttczPVGPDMRQOB8611-75-53 03:22:00 Test Item Value Reference Range Interpretation Comments RBC (test code = RBC) 4.51 4.20-5.40 [facility] CampusZjnzrcpLPYVUUNNNR7299-60-91 03:22:00 Test Item Value Reference Range Interpretation Comments MCV (test code = MCV) 89.7 80.0-98.0 [facility] CampusSbqeijzFUOPVPVFZM1326-82-65 03:22:00 Test Item Value Reference Range Interpretation Comments WBC (test code = WBC) 9.8 3.7-10.4 [facility] CampusRvblvxwCMCUAYJTLV8654-17-11 03:22:00 Test Item Value Reference Range Interpretation Comments Platelet (test code = Platelet) 178 133-450 [facility] CampusUdekpzlXWOYNRSPJY2098-31-70 03:22:00 Test Item Value Reference Range Interpretation Comments MPV (test code = MPV) 9.1 7.4-10.4 [facility] CampusFvuatriMJTYURNBXV5029-67-33 03:22:00 Test Item Value Reference Range Interpretation Comments MCHC (test code = MCHC) 33.5 32.0-36.0 [facility]SzeidzlGVNZDMZNBK7335-21-07 03:22:00 Test Item Value Reference Range Interpretation Comments RDW (test code = RDW) 11.7 11.5-14.5 [facility] CampusCbrizpwQPLBKKRWKR7691-30-67 03:22:00 Test Item Value Reference Range Interpretation Comments MCH (test code = MCH) 30.1 pg 27.0-31.0 [facility]2015-08-06 03:22:00 Test Item Value Reference Range Interpretation Comments UA Turbidity (test code Slight Cloudy (06/17/15 = UA Turbidity) 10:22 PM) [facility] AND [id number] 03:22:00 Test Item Value Reference Range Interpretation Comments UA Spec Grav (test code = UA Spec 1.020 1 Grav) [facility] AND [id number] 03:22:00 Test Item Value Reference Range Interpretation Comments UA Urobilinogen (test code = UA 1.0 0.1-1.0 Urobilinogen) [facility] AND [id number] 03:22:00 Test Item Value Reference Range Interpretation Comments UA Nitrite (test code Negative (06/17/15 10:22 = UA Nitrite) PM) [facility] AND [id number] 03:22:00 Test Item Value Reference Range Interpretation Comments UA Blood (test code = Negative (06/17/15 10:22 UA Blood) PM) [facility] AND [id number] 03:22:00 Test Item Value Reference Range Interpretation Comments UA Protein (test code Negative (06/17/15 10:22 = UA Protein) PM) [facility] AND [id number] 03:22:00 Test Item Value Reference Range Interpretation Comments UA pH (test code = UA pH) 7.0 1 5.0-8.0 [facility] AND [id number] 03:22:00 Test Item Value Reference Range Interpretation Comments UA Ketones (test code = Trace *ABN*(06/17/15 UA Ketones) 10:22 PM) [facility] AND [id number] 03:22:00 Test Item Value Reference Range Interpretation Comments UA Bili (test code = Negative *NA*(06/17/15 UA Bili) 10:22 PM) [facility] AND [id number] 03:22:00 Test Item Value Reference Range Interpretation Comments UA Glucose (test code Negative (06/17/15 10:22 = UA Glucose) PM) [facility] AND [id number] 03:22:00 Test Item Value Reference Range Interpretation Comments UA Color (test code = Yellow *NA*(06/17/15 UA Color) 10:22 PM) [facility] [id number] 03:22:00 Test Item Value Reference Range Interpretation Comments UA RBC (test code = 0-2 /HPF See_Comment [Automa perico message] The UA RBC) system which ge nerated this result tra nsmitted reference range : <=2. The reference range was not used to interpr et this result as sincere l/abnormal. [facility] [id number] 03:22:00 Test Item Value Reference Range Interpretation Comments UA Bacteria (test code = UA Moderate /HPF Bacteria) [facility] [id number] 03:22:00 Test Item Value Reference Range Interpretation Comments UA Sq Epi (test code = UA Sq Epi) Few /LPF [facility] [id number] 03:22:00 Test Item Value Reference Range Interpretation Comments UA Leuk Est (test code Trace *ABN*(06/17/15 = UA Leuk Est) 10:22 PM) [facility] [id number] 03:22:00 Test Item Value Reference Range Interpretation Comments UA WBC (test code = UA WBC) 0-2 /HPF [facility] [id number] 03:22:00 Test Item Value Reference Range Interpretation Comments U Preg (test code = U Negative (06/17/15 10:22 Preg) PM) [facility]annCHEM [id number] 03:22:00 Test Item Value Reference Range Interpretation Comments Lipase Lvl (test code = Lipase Lvl) 118 73-393 [facility] [id number] 03:22:00 Test Item Value Reference Range Interpretation Comments AGAP (test code = AGAP) 12.6 10.0-20.0 [facility] [id number] 03:22:00 Test Item Value Reference Range Interpretation Comments A/G Ratio (test code = A/G Ratio) 1.2 0.7-1.6 [facility] FhubqqhATRRDNITBJCQ1765-52-00 03:22:00 Test Item Value Reference Range Interpretation Comments Globulin (test code = Globulin) 3.7 2.0-4.0 [facility] [id number] 03:22:00 Test Item Value Reference Range Interpretation Comments B/C Ratio (test code = B/C Ratio) 20 6-25 [facility] [id number] 03:22:00 Test Item Value Reference Range Interpretation Comments eGFR (test code = eGFR) 159 [id number] 03:22:00 Test Item Value Reference Range Interpretation Comments Sodium Lvl (test code = Sodium Lvl) 139 135-145 [facility] HospitalEyagrmoNPGKPWRSVBFC0537-51-74 03:22:00 Test Item Value Reference Range Interpretation Comments Creatinine Lvl (test code = Creatinine 0.4 0.5-1.4 Lvl) [facility] Hos[id number] 03:22:00 Test Item Value Reference Range Interpretation Comments BUN (test code = BUN) 8 7-22 [facility] HospitalZbkrbdhAHGQZSSPSFSS6841-20-84 03:22:00 Test Item Value Reference Range Interpretation Comments Chloride Lvl (test code = Chloride Lvl) 105 95-109 [facility] Hospi[id number] 03:22:00 Test Item Value Reference Range Interpretation Comments Potassium Lvl (test code = Potassium 3.6 3.5-5.1 Lvl) [facility] Hos[id number] 03:22:00 Test Item Value Reference Range Interpretation Comments CO2 (test code = CO2) 25 24-32 [facility] HospitalBrlmuryUIQIRSRPJWEV7747-73-75 03:22:00 Test Item Value Reference Range Interpretation Comments Total Protein (test code = Total 8.0 6.4-8.4 Protein) [facility] Hospi[id number] 03:22:00 Test Item Value Reference Range Interpretation Comments Calcium Lvl (test code = Calcium Lvl) 9.4 8.5-10.5 [facility] Hos[id number] 03:22:00 Test Item Value Reference Range Interpretation Comments AST (test code = AST) 17 See_Comment [Auto mated message] The system which ge nerated this result transmit perico reference range : <=37. The reference range was not used to interpr et this result as sincere l/abnormal. [facility] Hospital[id number] 03:22:00 Test Item Value Reference Range Interpretation Comments Bili Total (test code = Bili Total) 1.2 0.2-1.3 [facility] HospitalPsxjrysKQJHFBOIRWKU6069-65-74 03:22:00 Test Item Value Reference Range Interpretation Comments ALT (test code = ALT) 19 See_Comment [Auto mated message] The system which ge nerated this result transmit perico reference range : <=65. The reference range was not used to interpr et this result as sincere l/abnormal. [facility] Hospital[id number] 03:22:00 Test Item Value Reference Range Interpretation Comments Albumin Lvl (test code = Albumin Lvl) 4.3 3.5-5.0 [facility] Hospital[id number] 03:22:00 Test Item Value Reference Range Interpretation Comments Alk Phos (test code = Alk Phos) 142 80-406 [facility] Hos[id number] 03:22:00 Test Item Value Reference Range Interpretation Comments Glucose Lvl (test code = Glucose Lvl) 86 70-99 [facility]ByjksigDDXOEIYWVE5444-23-34 03:22:00 Test Item Value Reference Range Interpretation Comments Segs-Bands # (test code = Segs-Bands #) 6.9 1.5-8.1 [facility] CampusYlmmpygSLBZMZGUGX0028-12-58 03:22:00 Test Item Value Reference Range Interpretation Comments Lymphocytes # (test code = Lymphocytes 2.3 1.0-5.5 #) [facility] CampusRmdnbcxRGSHLZJUCU9241-45-04 03:22:00 Test Item Value Reference Range Interpretation Comments Monocytes # (test code 0.6 See_Comment [Aut omated message] The = Monocytes #) system which generated this result tra nsmitted reference range : <=0.8. The reference r malcolm was not used to int erpret this result as normal/abnormal . [facility] Camp[id number] 03:22:00 Test Item Value Reference Range Interpretation Comments Lymphocytes (test code = Lymphocytes) 23.2 20.0-40.0 [facility] CampusNhgbfuzYEHMJZNGZZ6894-79-08 03:22:00 Test Item Value Reference Range Interpretation Comments Monocytes (test code = Monocytes) 5.9 2.0-12.0 [facility] Camp[id number] 03:22:00 Test Item Value Reference Range Interpretation Comments Eosinophils (test code = 0.4 See_Comment [A utomated message] The Eosinophils) system which ge nerated this result tra nsmitted reference range : <=4.0. The reference r malcolm was not used to int erpret this result as normal/abnormal . [facility] CampusTwbipeuJZDOOYIQDS7756-22-43 03:22:00 Test Item Value Reference Range Interpretation Comments Basophils (test code = 0.4 See_Comment [Aut omated message] The Basophils) system which ge nerated this result tra nsmitted reference range : <=1.0. The reference r malcolm was not used to int erpret this result as normal/abnormal . [facility] CampusJlwlphyGTXKRBPSKK3698-13-92 03:22:00 Test Item Value Reference Range Interpretation Comments Segs (test code = Segs) 70.1 34.0-64.0 [facility] CampusAjbetrgZUOHRCABLH7209-54-99 03:22:00 Test Item Value Reference Range Interpretation Comments PTT (test code = PTT) 28.1 s 22.9-35.8 [facility] CampusCpzmjnaZPWTALJBTV6607-43-01 03:22:00 Test Item Value Reference Range Interpretation Comments INR (test code = INR) 1.02 0.85-1.17 [facility] CampusNwicfwpIUCNKYRNCF0572-98-81 03:22:00 Test Item Value Reference Range Interpretation Comments PT (test code = PT) 13.4 s 12.0-14.7 [facility] Camp[id number] 03:22:00 Test Item Value Reference Range Interpretation Comments Hgb (test code = Hgb) 13.6 12.0-16.0 [facility] CampusKphatwqFWBAJNTKDT5567-19-20 03:22:00 Test Item Value Reference Range Interpretation Comments Hct (test code = Hct) 40.5 36.0-48.0 [facility] CampusRaioaytYPWHYOWKCD0136-79-30 03:22:00 Test Item Value Reference Range Interpretation Comments RBC (test code = RBC) 4.51 4.20-5.40 [facility] Camp[id number] 03:22:00 Test Item Value Reference Range Interpretation Comments MCV (test code = MCV) 89.7 80.0-98.0 [facility] CampusRqdklhoEUSBJZIDKC2109-39-20 03:22:00 Test Item Value Reference Range Interpretation Comments WBC (test code = WBC) 9.8 3.7-10.4 [facility] CampusSrcyhxxBALLIKPLDC3735-94-09 03:22:00 Test Item Value Reference Range Interpretation Comments Platelet (test code = Platelet) 178 133-450 [facility] CampusBqwlfohBGGOZQTGWE3455-05-12 03:22:00 Test Item Value Reference Range Interpretation Comments MPV (test code = MPV) 9.1 7.4-10.4 [facility] Camp[id number] 03:22:00 Test Item Value Reference Range Interpretation Comments MCHC (test code = MCHC) 33.5 32.0-36.0 [facility] CampusTgkpihqLPGSHSHQYZ9566-20-14 03:22:00 Test Item Value Reference Range Interpretation Comments RDW (test code = RDW) 11.7 11.5-14.5 [facility] CampusVqttnddMHFQMJKBDE4827-05-61 03:22:00 Test Item Value Reference Range Interpretation Comments MCH (test code = MCH) 30.1 pg 27.0-31.0 [facility] AND [id number] 03:22:00 Test Item Value Reference Range Interpretation Comments UA Turbidity (test code Slight Cloudy (06/17/15 = UA Turbidity) 10:22 PM) [facility] AND [id number] 03:22:00 Test Item Value Reference Range Interpretation Comments UA Spec Grav (test code = UA Spec 1.020 1 Grav) [facility] AND [id number] 03:22:00 Test Item Value Reference Range Interpretation Comments UA Urobilinogen (test code = UA 1.0 0.1-1.0 Urobilinogen) [facility] AND [id number] 03:22:00 Test Item Value Reference Range Interpretation Comments UA Nitrite (test code Negative (06/17/15 10:22 = UA Nitrite) PM) [facility] AND [id number] 03:22:00 Test Item Value Reference Range Interpretation Comments UA Blood (test code = Negative (06/17/15 10:22 UA Blood) PM) [facility] AND [id number] 03:22:00 Test Item Value Reference Range Interpretation Comments UA Protein (test code Negative (06/17/15 10:22 = UA Protein) PM) [facility] AND [id number] 03:22:00 Test Item Value Reference Range Interpretation Comments UA pH (test code = UA pH) 7.0 1 5.0-8.0 [facility] AND [id number] 03:22:00 Test Item Value Reference Range Interpretation Comments UA Ketones (test code = Trace *ABN*(8/5/15 UA Ketones) 10:22 PM) [facility] [id number] 03:22:00 Test Item Value Reference Range Interpretation Comments UA Bili (test code = Negative *NA*(06/17/15 UA Bili) 10:22 PM) [facility] [id number] 03:22:00 Test Item Value Reference Range Interpretation Comments UA Glucose (test code Negative (06/17/15 10:22 = UA Glucose) PM) [facility] [id number] 03:22:00 Test Item Value Reference Range Interpretation Comments UA Color (test code = Yellow *NA*(06/17/15 UA Color) 10:22 PM) [facility] [id number] 03:22:00 Test Item Value Reference Range Interpretation Comments UA RBC (test code = 0-2 /HPF See_Comment [Automa perico message] The UA RBC) system which ge nerated this result tra nsmitted reference range : <=2. The reference range was not used to interpr et this result as sincere l/abnormal. [facility] [id number] 03:22:00 Test Item Value Reference Range Interpretation Comments UA Bacteria (test code = UA Moderate /HPF Bacteria) [facility] [id number] 03:22:00 Test Item Value Reference Range Interpretation Comments UA Sq Epi (test code = UA Sq Epi) Few /LPF [facility] [id number] 03:22:00 Test Item Value Reference Range Interpretation Comments UA Leuk Est (test code Trace *ABN*(06/17/15 = UA Leuk Est) 10:22 PM) [facility] [id number] 03:22:00 Test Item Value Reference Range Interpretation Comments UA WBC (test code = UA WBC) 0-2 /HPF [facility] [id number] 03:22:00 Test Item Value Reference Range Interpretation Comments U Preg (test code = U Negative (06/17/15 10:22 Preg) PM) [facility]
[2023-03-14 02:20] LABS: Absolute Lymphocytes (CBC) 3.7 K/uL (0.7-4.9); Hematocrit 37.8 % (36.0-45.0); Lymphocytes % 30.3 % (15.3-44.8); MCV 85.3 fL (80-100); MPV 8.7 fL (7.6-11.3); RBC Red Blood Cell Count 4.43 M/uL (3.86-4.86)
[2023-03-14 02:22] LABS: Specific Gravity > 1.030 (1.005-1.030)
[2023-03-14 02:25] LABS: Specific Gravity > 1.030 (1.005-1.030); Urine Bacteria None Seen /HPF (<20); Urine Bilirubin NEGATIVE (Negative); Urine Blood Negative (Negative); Urine Clarity Clear (Clear); Urine Color Light-Yellow (Yellow); Urine Glucose NEGATIVE (Negative); Urine Mucus Slight /HPF (None Seen); Urine Protein TRACE (Negative); Urine RBC <5 /HPF (None Seen); Urine Urobilinogen Normal (Normal)
[2023-03-14 02:38] LABS: Albumin 3.5 g/dL (3.4-5.0); Bilirubin Total 0.4 mg/dL (0.2-1.0); Potassium 3.7 mEq/L (3.5-5.1); Protein, Total 7.6 g/dL (6.4-8.2)
--- NOTE | 2023-03-14 05:11 | ER ---
Nurse's Notes [facility] Name: Janneth Issa Age: 23 yrs Sex: Female : 2000 Arrival Date: 03/14/2023 Time: 01:18 Bed 19 Private MD: Diagnosis: External hemorrhoid Presentation: 03/14 01:37 Chief complaint: Patient states: Pt reports bright red blood with BM x3 episodes since kb3 this morning with associated middle lower suprapubic pain. Denies dysuria, N/V. Coronavirus screen: Vaccine status: Patient reports being unvaccinated. Client denies travel out of the [place] in the last 14 days. Ebola Screen: Patient negative for fever greater than or equal to 101.5 degrees Fahrenheit, and additional compatible Ebola Virus Disease symptoms Patient denies exposure to infectious person. Patient denies travel to an Ebola-affected area in the 21 days before illness onset. No symptoms or risks identified at this time. Initial Sepsis Screen: Does the patient meet any 2 criteria? No. Patient's initial sepsis screen is negative. Does the patient have a suspected source of infection? No. Patient's initial sepsis screen is negative. Risk Assessment: Do you want to hurt yourself or someone else? Patient reports no desire to harm self or others. Onset of symptoms was March 13, 2023 at 08:00. 01:37 Method Of Arrival: Ambulatory 3 01:37 Acuity: PIO 3 kb3 Triage Assessment: 01:39 General: Appears in no apparent distress. Behavior is calm, cooperative. Pain: kb3 Complains of pain in suprapubic area Pain does not radiate. Pain currently is 7 out of 10 on a pain scale. Quality of pain is described as crampy. GI: Reports lower abdominal pain, rectal bleeding. SIGNALMAN: 01:39 LMP 02/28/2023 kb3 Historical: - Allergies: 01:39 CEPHALOSPORINS; kb3 01:39 PENICILLINS; kb3 01:39 Sulfa (Sulfonamide Antibiotics); kb3 - Home Meds: 01:39 None [Active]; kb3 - PMHx: 01:39 None; kb3 - PSHx: 01:39 section; kb3 - Immunization history:: Adult Immunizations up to date, Client reports having NOT received the Covid vaccine. Last tetanus immunization: unknown. - Social history:: Smoking status: Patient denies any tobacco usage or history of. Screenin: Abuse screen: Denies threats or abuse. Denies injuries from another. Nutritional ha1 screening: No deficits noted. Tuberculosis screening: No symptoms or risk factors identified. 01:26 [place] ED Fall Risk Assessment (Adult) History of falling in the last 3 months, ha1 including since admission No falls in past 3 months (0 pts) Confusion or Disorientation No (0 pts) Intoxicated or Sedated No (0 pts) Impaired Gait No (0 pts) Mobility Assist Device Used No (0 pt) Altered Elimination No (0 pt) Score/Fall Risk Level 0 - 2 = Low Risk Oriented to surroundings, Maintained a safe environment, Educated pt \T\ family on fall prevention, incl call for assistance when getting out of bed. Assessment: 01:26 General: Appears comfortable, Behavior is calm, cooperative. Pain: Denies pain. Neuro: ha1 Level of Consciousness is awake, alert, obeys commands, Oriented to person, place, time, situation. Cardiovascular: Capillary refill < 3 seconds Patient's skin is warm and dry. Respiratory: Airway is patent Respiratory effort is even, unlabored, Respiratory pattern is regular, symmetrical. GI: Abdomen is round non-distended, Bowel sounds present X 4 quads. Abd is soft and non tender X 4 quads. Reports constipation, bloody stool. : No signs and/or symptoms were reported regarding the genitourinary system. EENT: No signs and/or symptoms were reported regarding the EENT system. Musculoskeletal: Circulation, motion, and sensation intact. Range of motion: intact in all extremities. 02:20 Reassessment: Patient and/or family updated on plan of care and expected duration. Pain ha1 level reassessed. Patient is alert, oriented x 3, equal unlabored respirations, skin warm/dry/pink. Vital Signs: 01:37 BP 112 / 62; Pulse 84; Resp 18; Temp 98; Pulse Ox 98% ; Weight 113.4 kg; Height 5 ft. 4 kb3 in. ; Pain 7/10; 01:55 BP 103 / 54; Pulse 98; Resp 17 S; Pulse Ox 99% on R/A; ha1 02:50 BP 115 / 56; Pulse 97; Resp 16; Pulse Ox 96% on R/A; ha1 01:37 Body Mass Index 42.91 (113.40 kg, 162.56 cm) kb3 01:37 Pain Scale: Adult 3 ED Course: 01:21 Patient arrived in ED. mr 01:26 Patient has correct armband on for positive identification. Placed in gown. Bed in low ha1 position. Call light in reach. Side rails up X 1. Adult w/ patient. 01:27 Chris Reynolds PA is PHCP. [facility] 01:27 Constantine Bradford MD is Attending Physician. jmm 01:39 Triage completed. kb3 01:39 Arm band placed on right wrist. kb3 01:43 Trixie Ac RN is Primary Nurse. ha1 02:10 Inserted saline lock: 20 gauge in right forearm, using aseptic technique. Blood ha1 collected. 02:18 CBC with Diff Sent. ha1 02:18 CMP Sent. ha1 02:18 Lipase Sent. ha1 02:18 Test, Urine Sent. ha1 02:18 Urinalysis w/ reflexes Sent. ha1 04:34 CT Abd/Pelvis - IV Contrast Only In Process Unspecified. EDMS 05:32 No provider procedures requiring assistance completed. IV discontinued, intact, ha1 bleeding controlled, No redness/swelling at site. Pressure dressing applied. Administered Medications: No medications were administered Medication: 05:32 VIS not applicable for this client. ha1 Outcome: 05:10 Discharge ordered by MD. rt 05:32 Discharged to home ambulatory, with family. ha1 05:32 Condition: stable 05:32 Discharge instructions given to patient, family, Instructed on discharge instructions, follow up and referral plans. Demonstrated understanding of instructions, follow-up care. 05:33 Patient left the ED. ha1 Signatures: Dispatcher [employer] EDMS Chris Reynolds PA PA [facility] Monet Mazariegos mr Trixie Ac, RN RN ha1 Bhavana Morgan RN RN kb3 Constantine Bradford MD MD rt Corrections: (The following items were deleted from the chart) 03:45 02:50 BP 127 / 69; Pulse 70bpm; Resp 16bpm; Pulse Ox 96% RA; ha1 ha1
--- NOTE | 2023-03-14 05:11 | EDPHYS ---
Physician Documentation [facility] Name: Janneth Issa Age: 23 yrs Sex: Female : 2000 Arrival Date: 03/14/2023 Time: 01:18 Bed 19 Private MD: ED Physician Constantine Bradford HPI: 03/14 01:34 This 23 yrs old Female presents to ER via Unassigned with complaints of Bloody Stools. jmm 01:34 The patient presents to the emergency department with rectal bleeding. Onset: The jmm symptoms/episode began/occurred acutely, today. Abdominal pain: described as achy. Modifying factors: The symptoms are alleviated by nothing, the symptoms are aggravated by nothing. Associated signs and symptoms: Pertinent negatives: fever. This is a 23 year old female with no chronic medical conditions that presents to the ED with complaints of lower abdominal pain and 3 episodes of bloody stools. Denies fever, denies vomiting. . 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 Last tetanus immunization: unknown. - Social history:: Smoking status: Patient denies any tobacco usage or history of. ROS: 01:38 Constitutional: Negative for fever, chills, and weight loss, Cardiovascular: Negative jmm for chest pain, palpitations, and edema, Respiratory: Negative for shortness of breath, cough, wheezing, and pleuritic chest pain. 01:38 Abdomen/GI: Positive for abdominal pain, rectal bleeding. 01:38 All other systems are negative. Exam: 01:38 Constitutional: This is a well developed, well nourished patient who is awake, alert, jmm and in no acute distress. Head/Face: atraumatic. Eyes: EOMI, no conjunctival erythema appreciated ENT: Moist Mucus Membranes Neck: Trachea midline, Supple Chest/axilla: Normal chest wall appearance and motion. Cardiovascular: Regular rate and rhythm. No edema appreciated Respiratory: Normal respirations, no respiratory distress appreciated 01:38 Back: Normal ROM Skin: General appearance color normal MS/ Extremity: Moves all extremities, no obvious deformities appreciated, no edema noted to the lower extremities Neuro: Awake and alert Psych: Behavior is normal, Mood is normal, Patient is cooperative and pleasant 01:38 Abdomen/GI: Inspection: abdomen appears normal, Bowel sounds: normal, Palpation: soft, mild abdominal tenderness, in the right lower quadrant and left lower quadrant. Vital Signs: 01:37 BP 112 / 62; Pulse 84; Resp 18; Temp 98; Pulse Ox 98% ; Weight 113.4 kg; Height 5 ft. 4 kb3 in. ; Pain 7/10; 01:55 BP 103 / 54; Pulse 98; Resp 17 S; Pulse Ox 99% on R/A; ha1 02:50 BP 115 / 56; Pulse 97; Resp 16; Pulse Ox 96% on R/A; ha1 01:37 Body Mass Index 42.91 (113.40 kg, 162.56 cm) kb3 01:37 Pain Scale: Adult kb3 MDM: 01:29 Patient medically screened. [facility] 01:39 Transition of care: After a detail discussion of the patient's case, care is jm transferred to Constantine Bradford MD. 03/14 01:33 Order name: CBC with Diff; Complete Time: 02:39 [facility] 03/14 01:33 Order name: CMP; Complete Time: 02:39 [facility] 03/14 01:33 Order name: Lipase; Complete Time: 02:39 [facility] 03/14 01:33 Order name: Test, Urine; Complete Time: 02:39 [facility] 03/14 01:33 Order name: Urinalysis w/ reflexes; Complete Time: 02:39 [facility] 03/14 02:54 Order name: Test, Serum; Complete Time: 04:10 rt 03/14 01:33 Order name: CT Abd/Pelvis - IV Contrast Only [facility] 03/14 01:33 Order name: IV Saline Lock; Complete Time: 02:18 [facility] 03/14 01:33 Order name: Labs collected and sent; Complete Time: 02:18 [facility] Administered Medications: No medications were administered Disposition: 05:11 Co-signature as Attending Physician, Constantine Bradford MD I agree with the assessment and rt plan of care. I reviewed the patient's care provided by Advanced Practice Provider \T\ agree w/ the diagnosis \T\ care plan. I personally saw the pt \T\ performed a substantive portion of the visit, incldng all aspects of the (History/Exam/Medical Decision Making). 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 HPI: Patient reports having constipation, straining to use the restroom, states that the bleeding is currently stopped. My personal exam of patient reveals: External hemorrhoids seen, no blood present on examination I agree with assessment and care plan and confirm the diagnosis (es) above. Disposition Summary: 03/14/23 05:10 Discharge Ordered Location: Home rt Problem: new rt Symptoms: have improved rt Condition: Stable rt Diagnosis - External hemorrhoid rt Followup: rt - With: Private Physician - When: 2 - 3 days - Reason: Discharge Instructions: - Discharge Summary Sheet rt - Hemorrhoids rt Forms: - Family Work Release ha1 - Medication Reconciliation Form rt - Thank You Letter rt - Antibiotic Education rt - Prescription Opioid Use rt Signatures: Dispatcher [employer] EDMS Chris Reynolds PA [facility] Bhavana Morgan, RN RN kb3 Constantine Bradford MD MD rt Corrections: (The following items were deleted from the chart) 01:39 01:34 This is a 23 year old female with no chronic medical conditions that presents to [facility] the ED with complaints of lower abdominal pain . [facility]
[2023-03-14 05:43] VITALS: TEMP 98
[2023-03-14 05:55] VITALS: BP 115/56; O2SAT 96
--- NOTE | 2023-03-14 13:51 | RAD REPORT ---
EXAM DESCRIPTION: CT - Abdomen Pelvis W Contrast - 03/14/2023 6:35 am CLINICAL HISTORY: The patient is 23 years old and is Female; lower abdominal pain, rectal bleeding TECHNIQUE: Axial computed tomography images of the abdomen and pelvis with intravenous contrast. S agittal and coronal reformatted images were created and reviewed. This CT exam was performed using one or more of the following dose reduction techniques: automated exposure control, adjustment of t he mA and/or kV according to patient size, and/or use of iterative reconstruction technique. COMPARISON: No relevant prior studies available. FINDINGS: Lung bases: Unremarkable. No mass. No consolidation. ABDOMEN: Liver: Unremarkable. No mass. Gallbladder and bile ducts: Cholelithiasis. No ductal dilation. Pancreas: Unremarkable. No mass. No ductal dilation. Spleen: Unremarkable. No splenomegaly. Adrenals: Unremarkable. No mass. Kidneys and ureters: Simple cyst in the left kidney. No follow-up imaging is recommended. No hydronephrosis. Stomach and bowel: Sigmoid diverticula. No obstruction. No mucosal thickening. PELVIS: Appendix: The appendix is normal. Bladder: Unremarkable. Reproductive: Unremarkable as visualized. ABDOMEN and PELVIS: Intraperitoneal space: Unremarkable. No free air. No significant fluid collection. Bones/joints: No acute fracture. No dislocation. Soft tissues: Unremarkable. Vasculature: Unremarkable. No abdominal aortic aneurysm. Lymph nodes: Unremarkable. No enlarged lymph nodes. IMPRESSION: No acute finding in the abdomen/pelvis. Electronically signed by: Robbie Shah MD 03/14/2023 4:59 AM CDT Due to temporary technical issues with the PACS/Fluency reporting system, reports are being signed by the in house radiologists without review as a courtesy to insure prompt reporting. The interpreting radiologist is fully responsible for the content of the report.
== END 2023-03-14 05:33 | disposition home or self-care (01) ==
LOC: ER 01:18
DX: K64.4 Residual hemorrhoidal skin tags (principal); Z88.0 Allergy status to penicillin; Z88.2 Allergy status to sulfonamides; Z88.3 Allergy status to other anti-infective agents
CPT/HCPCS: 85025; 81001; 36415; 84703; 81025; 83690; 80053; 74177; 99284; Q9967

== ENCOUNTER 2023-05-02 10:55 | Emergency (ER) | payer OTHER ==
[2023-05-02 11:35] LABS: Specific Gravity 1.025 (1.005-1.030)
--- OUTSIDE RECORDS SUMMARY | 2023-05-02 11:41 | XMS REPORT | Continuity of Care Document ---
:[address] [facility] t Address [address] [place] [address] Care Team Providers Name Role Phone PCP, [...] Attending Clinician Unavailable Telma Lai Attending Clinician TELMA LAI Attending Clinician Unavailable Lolis West Attending Clinician LOLIS WEST Attending Clinician Unavailable [place] Attending Clinician [place] Attending Clinician Unavailable Juan Vizcaino Attending Clinician JUAN VIZCAINO Attending Clinician Unavailable [place] Attending Clinician Wanda Matias Attending Clinician [...] Type Policy Number Effective Date [facility] Date [id number] 2017 00:00:00 2017 00: 00:00 Problems Condition Condition Condition Status Onset Resolution Last Treating Co mments Source Name Details Category Date Date Treatment Clinician Date CONTRACTIO CONTRACTI Diagnosis Active 2022-05-27 Memoria NS ONS Active 05-27 14:20:00 l 05/27/2022 00:00: Bartolome BLANDON [address] LOF/CTXS LOF/CTXS Diagnosis Active 2022-05-25 Memoria Active 05-25 12:56:00 l 05/25/2022 00:00: Bartolome paul [address] CRAMPING/B CRAMPING/ Diagnosis Active 2022-05-19 Memoria LURRED BLURRED 05-19 18:25:00 l VISION VISION 00:00: [place] Active 00 05/19/2022 [facility] CONTRACTIN CONTRACTI Diagnosis Active 2022-05-06 Memoria G NG Active 05-05 03:42:00 l 05/05/2022 00:00: Bartolome paul [address] CHILDBIRTH CHILDBIRT Diagnosis Active 2022-05-15 Memoria H Active 03-08 08:47:00 l 03/08/2022 23:25: Bartolome paul [address] / / Diagnosis Active 2020-112021-10-28 Memoria NAUSEA NAUSEA 12-29 13:31:00 l Active 00:00: [place] 10/28/2021 00 [facility] ABDOMINAL ABDOMINAL Diagnosis Active 2021-05-17 Memoria PAIN PAIN 05-17 21:45:00 l Active 00:00: [place] 05/17/2021 00 [facility] PUI PUI Diagnosis Active 2021-05-13 Mem oria Active 05-13 08:45:00 l 05/13/2021 00:00: Bartolome paul [address] [place] VOMITING VOMITING Diagnosis Active 2021-02-02 Memoria Active 02-02 13:30:00 l 02/02/2021 00:00: Bartolome paul [address] [place] ABD ABD Diagnosis Active 2017-112018-09-24 Mem oria PAIN/RECTA PAIN/RECTA 11-24 18:33:00 l L AND L AND 00:00: [place] VAGINAL VAGINAL 00 BLEEDING BLEEDING Active 09/24/2018 [facility] R10.9 - R10.9 - Diagnosis Active 2016-112017-10-27 Memoria UNSPECIFIE UNSPECIFIE - 13:14:00 l D D 00:01: [place] ABDOMINAL ABDOMINAL 00 PAIN PAIN Active 10/25/2017 [facility] HEADACHE HEADACHE Diagnosis Active 2015-02-18 Memoria Active 02-18 21:00:00 l 02/18/2015 00:00: Bartolome paul [address] [place] RT KNEE RT KNEE Diagnosis Active 2015-2014-12-08 Memoria DISLOCATIO DISLOCATIO 12-08 19:41:00 l N N Active 00:00: [place] 12/08/2014 00 [facility] Hemorrhage Hemorrhag Problem 2019-04-13 Memoria of anus e of anus 12:24:45 l and rectum and rectum He sina 9 [facility] Abnormal Abnormal Problem 2019-04-13 Memoria uterine uterine 12:24:45 l and and Willie vaginal vaginal bleeding, bleeding, unspecifie unspecifie d d 04/13/2019 [facility] Fever, Fever, Problem 2019-04-13 Leonid indigo unspecifie unspecifie 12:24:45 l d d Willie 04/13/2019 [facility] Headache Headache Problem 2019-04-13 Memoria 04/13/2019 12:24:45 l [facility] Generalize Generaliz Problem 2019-04-13 Memoria d ed 12:24:45 l abdominal abdominal Herm sina pain pain 04/13/2019 [facility] Dysuria Dysuria Problem 2019-04-13 Me moria 04/13/2019 12:24:45 l [facility] Hematuria, Hematuria Problem 2019-04-13 Memoria unspecifie , 12:24:45 l d unspecifie Bartolome n d 04/13/2019 [facility] Weakness Weakness Problem 2019-04-13 Memoria 04/13/2019 12:24:45 l [facility] Constipati Constipat Problem 2019-04-13 Memoria on, ion, 12:24:45 l unspecifie unspecifie He rmann d d 04/13/2019 [facility] Other Other Problem 2019-04-13 Memor ia fatigue fatigue 12:24:45 l 04/13/2019 Bartolome paul [facility] ocean transportation intermediary correction Problem 2019-04-13 Memoria (current) (current) 12:24:45 l use of use of [place] hormonal hormonal contracept contracept bertrand bertrand 04/13/2019 [facility] Cyst of Cyst of Problem 2019-02-20 [facility] kidney, kidney, 14:09:15 l acquired acquired Bartolome n 02/20/2019 [facility] Chlamydial Chlamydia Problem Resolve 2022-06-01 Memoria infection l d 22:47:44 l (disorder) infection Her roberts (disorder) Resolved Problem 06/01/2022 [facility] Vomiting Vomiting Problem Active 2022-06-01 Memoria (disorder) (disorder) 22:47:44 l Active [place] Problem 06/01/2022 [facility], [facility] ACL SPRAIN ACL Diagnosis Active 2015-01-29 Memoria SPRAIN 08:15:00 l Active Bartolome n [facility] KNEE PAIN KNEE Diagnosis Active 2015-06-25 Memoria PAIN 17:12:00 l [facility] History of History of Problem [...] (finding) (finding) 00 Resolved 08/20/2021 Problem 06/01/2022 [facility] History of Past Illness Condition Condition Condition Status Onset Resolution Last Treating Co mments Source Name Details Category Date Date Treatment Clinician Date Problem 2022-05-27 2022-05-27 [facility], 05-25 22:59:43 22:59:43 l incidental incidental 19:10: He rmann 05/25/2022 00 05/27/2022 [facility] Mild Mild Problem 2020-112021-10-30 2021-10-30 M emoria hyperemesi hyperemesi 12-29 23:38:31 23:38:31 l s s 21:21: Willie gravidarum gravidarum 00 10/28/2021 [facility] Acute Acute Problem 2021-05-20 2021-05-20 M emoria pharyngiti pharyngiti 05-18 21:02:18 21:02:18 l s, s, 17:00: [place] unspecifie unspecifie 00 d d 05/18/2021 [facility] Urinary Urinary Problem 2021-05-20 2021-05-[address] [facility] tract tract 05-18 21:02:18 21:02:18 l infection, infection, 17:00: He rmann site not site not 00 specified specified 05/18/2021 [facility] Lower Lower Problem 2021-05-20 2021-05-20 M emoria abdominal abdominal 05-18 21:02:18 21:02:18 l pain, pain, 17:00: [place] unspecifie unspecifie 00 d d 05/18/2021 [facility] Nausea Nausea Problem 2021-05-20 2021-05-20 Memoria with with 05-18 21:02:18 21:02:18 l vomiting, vomiting, 17:00: Herm sina unspecifie unspecifie 00 d d 05/18/2021 [facility] Acute Acute Problem 2021-05-15 2021-05-15 M emoria tonsilliti tonsilliti 05-13 21:23:30 21:23:30 l s, s, 17:00: [place] unspecifie unspecifie 00 d d 05/13/2021 1 [facility] Unspecifie Unspecifi Problem 2021-02-08 2021-02-08 Memoria d ed 02-02 07:26:20 07:26:20 l abdominal abdominal 17:00: Herm sina pain pain 00 02/02/2021 1 [facility] Hematemesi Hematemes Problem 2017-112019-04-13 2019-04-13 Memoria s is - 12:24:45 12:24:45 l 09/29/2018 04:24: Bartolome n 48 9 [facility] Vomiting, Vomiting, Problem 2017-112019-04-13 2019-04-13 Memoria unspecifie unspecifie 11-24 12:24:45 12:24:45 l d d 06:00: Willie 09/24/2018 00 9 [facility] Other Other Problem 2017-112019-02-20 2019-02-20 M emoria constipati constipati 12-14 14:09:15 14:09:15 l on on 10:50: [place] 10/13/2018 49 9 [facility] Discharge Discharge Problem 2015-06-21 2015-06-21 Memoria Diagnosis: Diagnosis: 06-18 07:14:59 07:14:59 l Abdominal Abdominal 05:00: Herm sina pain pain 00 06/18/2015 5 [facility] Discharge Discharge Problem 2015-02-20 2015-02-20 Memoria Diagnosis: Diagnosis: 02-18 20:26:27 20:26:27 l Head Head 05:00: Willie injury injury 00 02/18/2015 5 [facility] Discharge Discharge Problem 2015-02-20 2015-02-20 Memoria Diagnosis: Diagnosis: 02-18 20:26:27 20:26:27 l Concussion Concussion 05:00: He rmann 02/18/2015 00 5 [facility] Discharge Discharge Problem 2014-2014-12-11 2014-12-11 Memoria Diagnosis: Diagnosis: 12-09 16:24:18 16:24:18 l Knee pain, Knee pain, 06:00: He rmann right right 12/09/2014 5 [facility] Allergies, Adverse Reactions, Alerts Allergy Allergy Status Severity Reaction(s) Onset Inactive Treating Comm ents Source Name Type Date Date Clinician Cephalos Propensi Active Rash 2021-11 Univer s porins ty to 05 ity of adverse 00:00: [place] reaction [address] [facility] Penicill Propensi Active Rash 2021-11 Univer s in ty to 05 ity of adverse 00:00: [place] reaction [facility] Sulfur Propensi Active Rash 2021-11 Univers ty to 11-17 ity of adverse 00:00: [place] reaction [facility] SULFUR DRUG Active High Rash 2021-11 Univers INGREDI 1-05 ity of 00:00: [place] [facility] PENICILL DRUG Active High Rash 2021-11 Univers IN INGREDI -05 ity of 00:00: [place] 00 [facility] CEPHALOS Drug Active High Rash 2021-11 Univers PORINS Class -05 ity of 00:00: [address] Penicill DA Active MO 2017-11 [facility] ins 1-19 Clear 00:00: [place] [address] [facility] Cephalos DA Active MO 2017-11 [facility] porins 1-19 Clear 00:00: [place] [address] [facility] Sulfa DA Active MO 2017-11 [facility] (Sulfona -19 Clear mide 00:00: [place] Antibiot 00 [facility] Cephalos drug Active [place] porins allergy [facility]ici ans Penicill drug Active [facility] ins allergy [facility] sulfa drug Active [facility] allergy [facility] Sulfa drug Active [facility] Drugs allergy Physici ans cephalos cephalos Active Memori a porins porins l [place] penicill penicill Active Memori a in in l [place] sulfa sulfa Active Memoria drugs drugs l [place] penicill penicill Active Memori a ins ins l [place] NO KNOWN Drug Active Univers ALLERGIE Class ity of S [facility] Family History Family Member Diagnosis Comments Start [...] Date Stop Date Quantity Comments Source ASSERTION [facility] [place] Exposure to 2022-09-07 2022-09-17 Not sure [facility] SARS-CoV-2 (event) 00:00:00 00:00:00 Medica l Branch Social History 2022-05-27 2022-05-27 [facility] 20:56:33 20:56:33 Sex Assigned At 2000 2000 [facility] 00:00:00 00:00:00 Medical Branch Smoking Status Start Date Stop Date Source Tobacco smoking consumption [facility] Branch Social History [facility] Medications Ordered Filled Start Stop Current Ordering Indication Dosage Frequency Signature Comments Components Source Medication Medication Date Date Medication? Clinician (SIG) Name Name iopamidol 2021-11- No [id number] 100mL 100 mL, Univers (ISOVUE 11-17 Intravenou [...] 09/17/22 at 0230, Routine ibuprofen 2021-11 Yes [id number] 800mg Take 1 Univers 800 mg 05 tablet by ity of tablet 00:00: mouth [place] 00 every 8 Medical (eight) Branch hours as needed for Alternate with [place] for pain scale 4-6. acetaminoph Yes 1,000 mg = Memoria en 500 mg 7-18 2 tab, PO, l oral 12:20: Q6H, PRN [place] tablet. 00 Pain, X 14 day, # 56 tab, 0 Refill(s), Pharmacy: [facility] #[id number], 162.56, cm, 05/27/22 15:53:00 CDT, Height, 114.091, kg, 05/27/22 15:53:00 CDT, Weight Colace 50 2021-0 Yes 50 mg = 1 Mem oria mg oral 7-18 cap, PO, l capsule 12:20: BID, PRN Bartolome n 00 Constipati on, # 14 cap, 0 Refill(s), Pharmacy: [facility] #[id number], 162.56, cm, 05/27/22 15:53:00 CDT, Height, 114.091, kg, 05/27/22 15:53:00 CDT, Weight ibuprofen 2021-0 Yes 600 mg = 1 Me moria 600 mg oral 7-18 tab, PO, l tablet 12:20: Q6H, PRN [place] 00 Pain, Take with food, X 14 day, # 56 tab, 0 Refill(s), Pharmacy: [facility] #[id number], 162.56, cm, 05/27/22 15:53:00 CDT, Height, 114.091, kg, 05/27/22 15:53:00 CDT, Weight iron 2021-0 Yes 325 mg = 1 Memoria sulfate 7-18 tab, PO, l (ferrous 12:20: Daily, # Mame nn sulfate) 00 30 tab, 2 325 mg oral Refill(s), tablet Pharmacy: [facility] #[id number], 162.56, cm, 05/27/22 15:53:00 CDT, Height, 114.091, kg, 05/27/22 15:53:00 CDT, Weight tramadol 50 2021-0 Yes 50 mg = 1 M emoria mg oral 7-18 tab, PO, l tablet 12:20: Q4H, PRN [place] 00 Pain, Attending: Kanu Jenkins MD LIZZY: [id number], X 7 day, # 12 tab, 0 Refill(s), Pharmacy: [facility] #[id number], 162.56, cm, 05/27/22 15:53:00 CDT, Height, 114.091, kg, 05/27/22 15:53:00 CDT, Weight Vitafol-One Yes 1 cap, PO, Memoria oral 7-18 Daily, # l capsule 12:20: 30 cap, 11 Herm sina 00 Refill(s), Pharmacy: [facility] #[id number], 162.56, cm, 05/27/22 15:53:00 CDT, Height, 114.091, kg, 05/27/22 15:53:00 CDT, Weight acetaminoph Yes 1,000 mg = Memoria en 500 mg 7-18 2 tab, PO, l oral 12:20: Q6H, PRN [place] tablet. 00 Pain, X 14 day, # 56 tab, 0 Refill(s), Pharmacy: [facility] #[id number], 162.56, cm, 05/27/22 15:53:00 CDT, Height, 114.091, kg, 05/27/22 15:53:00 CDT, Weight Colace 50 Yes 50 mg = 1 Mem oria mg oral 7-18 cap, PO, l capsule 12:20: BID, PRN Bartolome n 00 Constipati on, # 14 cap, 0 Refill(s), Pharmacy: [facility] #[id number], 162.56, cm, 05/27/22 15:53:00 CDT, Height, 114.091, kg, 05/27/22 15:53:00 CDT, Weight ibuprofen Yes 600 mg = 1 Me moria 600 mg oral 7-18 tab, PO, l tablet 12:20: Q6H, PRN [place] 00 Pain, Take with food, X 14 day, # 56 tab, 0 Refill(s), Pharmacy: [facility] #[id number], 162.56, cm, 05/27/22 15:53:00 CDT, Height, 114.091, kg, 05/27/22 15:53:00 CDT, Weight iron Yes 325 mg = 1 Memoria sulfate 7-18 tab, PO, l (ferrous 12:20: Daily, # Mame nn sulfate) 00 30 tab, 2 325 mg oral Refill(s), tablet Pharmacy: [facility] #[id number], 162.56, cm, 05/27/22 15:53:00 CDT, Height, 114.091, kg, 05/27/22 15:53:00 CDT, Weight tramadol 50 0 Yes 50 mg = 1 M emoria mg oral 7-18 tab, PO, l tablet 12:20: Q4H, PRN [place] 00 Pain, Attending: Kanu Jenkins MD LIZZY: [id number], X 7 day, # 12 tab, 0 Refill(s), Pharmacy: [facility] #[id number], 162.56, cm, 05/27/22 15:53:00 CDT, Height, 114.091, kg, 05/27/22 15:53:00 CDT, Weight Vitafol-One Yes 1 cap, PO, Memoria oral 7-18 Daily, # l capsule 12:20: 30 cap, 11 Herm sina 00 Refill(s), [id number], 162.56, cm, 05/27/22 15:53:00 CDT, Height, 114.091, kg, 05/27/22 15:53:00 CDT, Weight acetaminoph Yes 1,000 mg = Memoria en 500 mg 7-18 2 tab, PO, l oral 12:20: Q6H, PRN [place] tablet. 00 Pain, X 14 day, # 56 tab, 0 Refill(s), Pharmacy: [facility] #[id number], 162.56, cm, 05/27/22 15:53:00 CDT, Height, 114.091, kg, 05/27/22 15:53:00 CDT, Weight Colace 50 0 Yes 50 mg = 1 Mem oria mg oral 7-18 cap, PO, l capsule 12:20: BID, PRN Bartolome n 00 Constipati on, # 14 cap, 0 Refill(s), [id number], 162.56, cm, 05/27/22 15:53:00 CDT, Height, 114.091, kg, 05/27/22 15:53:00 CDT, Weight ibuprofen Yes 600 mg = 1 Me moria 600 mg oral 7-18 tab, PO, l tablet 12:20: Q6H, PRN [place] 00 Pain, Take with food, X 14 day, # 56 tab, 0 Refill(s), Pharmacy: [facility] #[id number], 162.56, cm, 05/27/22 15:53:00 CDT, Height, 114.091, kg, 05/27/22 15:53:00 CDT, Weight iron Yes 325 mg = 1 Memoria sulfate 7-18 tab, PO, l (ferrous 12:20: Daily, # Mame nn sulfate) 00 30 tab, 2 325 mg oral Refill(s), tablet Pharmacy: [facility] #[id number], 162.56, cm, 05/27/22 15:53:00 CDT, Height, 114.091, kg, 05/27/22 15:53:00 CDT, Weight tramadol 50 Yes 50 mg = 1 M emoria mg oral 7-18 tab, PO, l tablet 12:20: Q4H, PRN [place] 00 Pain, Attending: Kanu Jenkins MD LIZZY: [id number], X 7 day, # 12 tab, 0 Refill(s), Pharmacy: [facility] #[id number], 162.56, cm, 05/27/22 15:53:00 CDT, Height, 114.091, kg, 05/27/22 15:53:00 CDT, Weight Vitafol-One Yes 1 cap, PO, Memoria oral 7-18 Daily, # l capsule 12:20: 30 cap, 11 Herm sina 00 Refill(s), Pharmacy: [facility] #[id number], 162.56, cm, 05/27/22 15:53:00 CDT, Height, 114.091, kg, 05/27/22 15:53:00 CDT, Weight ibuprofen No Notes: Memori a 7-17 (Same as: l 17:00: Motrin) [place] 00 "Do Not Crush" Take with food. ibuprofen No Notes: Memori a 7-17 (Same as: l 17:00: Motrin) [place] 00 "Do Not Crush" Take with food. ibuprofen No Notes: Memori a 7-17 (Same as: l 17:00: Motrin) [place] 00 "Do Not Crush" Take with food. [...] en 7-17 acetaminop l 05:00: hen 4000 [place] 00 mg/day (4 gm/day). (Same as: Tylenol Extra Strength) ibuprofen No Notes: Memori a 7-17 (Same as: l 05:00: Motrin) [place] 00 "Do Not Crush" Take with food. acetaminoph No Notes: Max Memoria en 7-17 acetaminop l 05:00: hen 4000 [place] 00 mg/day (4 gm/day). (Same as: Tylenol Extra Strength) ibuprofen No Notes: Memori a 7-17 (Same as: l 05:00: Motrin) [place] 00 "Do Not Crush" Take with food. acetaminoph No Notes: Max Memoria en 7-17 acetaminop l 05:00: hen 4000 [place] 00 mg/day (4 gm/day). (Same as: Tylenol Extra Strength) Saline No Notes: Memoria Flush 0.9% 7-17 (Same as: l 02:00: BD [place] Posiflush) Saline No Notes: Memoria Flush 0.9% 7-17 (Same as: l 02:00: BD [place] Posiflush) Saline No Notes: Memoria Flush 0.9% 7-17 (Same as: l 02:00: BD [place] Posiflush) naloxone No Notes: Memoria 7-17 Same as l 01:00: Narcan [place] 00 naloxone No Notes: Memoria 7-17 Same as l 01:00: Narcan [place] 00 naloxone No Notes: Memoria 7-17 Same as l 01:00: Narcan [place] 00 oxyCODONE No Notes: Memori a immediate 7-17 (Same as: l release 00:26: Roxicodone Herm sina ) ondansetron No Notes: Leonid indigo 7-17 (Same as: l 00:26: Zofran) 00 MEDICATION WASTE Product Size: 4 mg Product Wasted: ___ mg promethazin No Notes: Do M emoria e 7-17 not give l 00:26: IV push. [place] 00 (Same as: Phenergan) oxyCODONE No Notes: Memori a immediate 7-17 (Same as: l release 00:26: Roxicodone Herm sina ) ondansetron No Notes: Leonid indigo 7-17 (Same as: l 00:26: Zofran) [place] 00 MEDICATION WASTE Product Size: 4 mg Product Wasted: ___ mg promethazin No Notes: Do M emoria e 7-17 not give l 00:26: IV push. [place] 00 (Same as: Phenergan) metoclopram No Notes: Leonid indigo meche 7-17 (Same as: l 00:26: Reglan) nalbuphine No Notes: Memor ia 7-17 (Same As: l 00:26: Nubain) naloxone No Notes: Memoria 7-17 Same as l 00:26: Narcan metoclopram No Notes: Leonid indigo meche 7-17 [...] Flagyl) Take with food/ avoid alcohol clindamycin 2022-0 No Notes: Leonid indigo 7-16 (Same As: l 21:00: Cleocin) [place] 00 metroNIDAZO No Notes: Leonid indigo LE 7-16 (Same as: l 21:00: Flagyl) [place] Take with food/ avoid alcohol clindamycin No Notes: Leonid indigo 7-16 (Same As: l 21:00: Cleocin) [place] metroNIDAZO No Notes: Leonid indigo LE 7-16 (Same as: l 21:00: Flagyl) [place] 00 Take with food/ avoid alcohol clindamycin No Notes: Leonid indigo 7-16 (Same As: l 21:00: Cleocin) [place] morphine No Route: Memoria Sulfate 7-16 EPIDURAL, l (ANES) 17:07: Drug form: Mame nn 00 INJ, ONCE, Stop date: 05/28/22 12:07:00 CDT midazolam 0 No Route: IV, Me moria (ANES) 7-16 Drug form: l 17:07: SOLN, [place] 00 ONCE, Stop date: 05/28/22 12:07:00 CDT morphine 2021-0 No Route: Memoria Sulfate 7-16 EPIDURAL, l (ANES) 17:07: Drug form: Mame nn 00 INJ, ONCE, Stop date: 05/28/22 12:07:00 CDT midazolam 2021-0 No Route: IV, Me moria (ANES) 7-16 Drug form: l 17:07: SOLN, [place] 00 ONCE, Stop date: 05/28/22 12:07:00 CDT morphine 2021-0 No Route: Memoria Sulfate 7-16 EPIDURAL, l (ANES) 17:07: Drug form: Mame nn 00 INJ, ONCE, Stop date: 05/28/22 12:07:00 CDT midazolam 2021-0 No Route: IV, Me moria (ANES) 7-16 Drug form: l 17:07: SOLN, [place] 00 ONCE, Stop date: 05/28/22 12:07:00 CDT tramadol 2021-0 No Notes: Not Mem oria 7-16 to exceed l 17:03: 400mg/day. [place] 00 (Same As: Ultram) tramadol No Notes: Not Mem oria 7-16 to exceed l 17:03: 400mg/day. [place] 00 (Same As: Ultram) tramadol No Notes: Not Mem oria 7-16 to exceed l 17:03: 400mg/day. [place] 00 (Same As: Ultram) atropine-di No Notes: Leonid indigo phenoxylate 7-16 (Same As: l 0.025 17:00: Lomotil) [place] mg-2.5 mg 00 MAX Adult oral tablet dose = 8 tabs/day carboprost No Notes: Memor ia 7-16 (Same As: l 17:00: Hemabate) tranexamic No Notes: Memor ia acid -16 (Same As: l 17:00: Cyklokapro [place] 00 n) ketOROLAC Yes 4 days Memor ia 7-16 l 17:00: MEDICATION WASTE Product Size: 30 mg Product Wasted: ___ mg naloxone No Notes: Memoria 7-16 Same as l 17:00: Narcan [place] 00 Lactated No 1,000 mL, Leonid indigo Ringers -16 1,000 l (Bolus) IV 17:00: ml/hr, Mame Infuse Over: 1 hr, Route: IV, 1,000, Drug form: INJ, ONCALL, Dosing Weight 114.091 kg, Start date: 05/28/22 12:00:00 CDT, Duration: 1 doses or times, For OB hemorrhage per physician direction, 0 oxytocin No Notes: Memoria 7-16 (Same as: l 17:00: Pitocin) [place] 00 Hazardous Drug Group 3:Reproduc tive risk Hazardous Drug -- Refer to safe handling procedure PPE Matrix misoprostol No Notes: Leonid indigo 7-16 (Same l 17:00: as:Cytotec [place] 00 ) Hazardous Drug Group 3:Reproduc tive risk Hazardous Drug -- Refer to safe handling procedure PPE Matrix Take with food methylergon No Notes: Leonid indigo ovine 7-16 (Same l 17:00: as:Metherg [place] 00 ine) Hazardous Drug Group 3:Reproduc tive risk Hazardous Drug -- Refer to safe handling procedure PPE Matrix atropine-di No Notes: Leonid nidigo phenoxylate 7-16 (Same As: l 0.025 17:00: Lomotil) [place] mg-2.5 mg 00 MAX Adult oral tablet dose = 8 tabs/day carboprost No Notes: Memor ia 7-16 (Same As: l 17:00: Hemabate) [place] 00 tranexamic No Notes: Memor ia acid 7-16 (Same As: l 17:00: Cyklokapro n) ketOROLAC Yes 4 days Memor ia 7-16 l 17:00: MEDICATION WASTE Product Size: 30 mg Product Wasted: ___ mg naloxone No Notes: Memoria 7-16 Same as l 17:00: Narcan [place] 00 Lactated No 1,000 mL, Leonid indigo Ringers -16 1,000 l (Bolus) IV 17:00: ml/hr, Mame nn 00 Infuse Over: 1 hr, Route: IV, 1,000, Drug form: INJ, ONCALL, Dosing Weight 114.091 kg, Start date: 05/28/22 12:00:00 CDT, Duration: 1 doses or times, For OB hemorrhage per physician direction, 0 oxytocin No Notes: Memoria 7-16 (Same as: l 17:00: Pitocin) [place] 00 Hazardous Drug Group 3:Reproduc tive risk Hazardous Drug -- Refer to safe handling procedure PPE Matrix misoprostol No Notes: Leonid indigo 7-16 (Same l 17:00: as:Cytotec [place] ) Hazardous Drug Group 3:Reproduc tive risk Hazardous Drug -- Refer to safe handling procedure PPE Matrix Take with food methylergon No Notes: Leonid indigo ovine 7-16 (Same l 17:00: as:Metherg ine) Hazardous Drug Group 3:Reproduc tive risk Hazardous Drug -- Refer to safe handling procedure PPE Matrix naloxone No Notes: Memoria 7-16 Same as l 17:00: Narcan [place] Lactated No 1,000 mL, Leonid indigo Ringers -16 1,000 l (Bolus) IV 17:00: ml/hr, Infuse Over: 1 hr, Route: IV, 1,000, [...] 7-16 (Same As: l 0.025 17:00: Lomotil) mg-2.5 mg 00 MAX Adult oral tablet dose = 8 tabs/day carboprost No Notes: Memor ia 7-16 (Same As: l 17:00: Hemabate) tranexamic No Notes: Memor ia acid 7-16 (Same As: l 17:00: Cyklokapro n) ketOROLAC Yes 4 days Memor ia 7-16 l 17:00: MEDICATION WASTE Product Size: 30 mg Product Wasted: ___ mg Lactated No 1,000 mL, Leonid indigo Ringers IV -16 Rate: 125 l 1,000 mL 16:58: ml/hr, Infuse over: 8 hr, Route: IV, Dosing Weight 114.091 kg, Total Volume: 1,000, see special instructio n for rate while completing infusion from recovery for the 20 Units of Oxytocin., Start date: 05/28/22 11:58:00 CDT, Duration.. . bisacodyl No Notes: Memori a 7-16 (Same As: l 16:58: Dulcolax, [place] Bisco-Lax) lanolin No 1 appl, Memoria topical 05-28 Route: l cream 16:58: TOP, PRN, [place] 00 Drug form: OINT, PRN Other -See Comment, [...] 0.9% 05-28 (Same as: l 16:58: BD [place] 00 Posiflush) Lactated No 1,000 mL, Leonid indigo Ringers IV 05-28 Rate: 125 l 1,000 mL 16:58: ml/hr, Infuse over: 8 hr, Route: IV, Dosing Weight 114.091 kg, Total Volume: 1,000, see special instructio n for rate while completing infusion from recovery for the 20 Units of Oxytocin., Start date: 05/28/22 11:58:00 CDT, Duration.. . bisacodyl No Notes: Memori a 7-16 (Same As: l 16:58: Dulcolax, [place] 00 Bisco-Lax) lanolin No 1 appl, Memoria topical 7-16 Route: l cream 16:58: TOP, PRN, [place] 00 Drug form: OINT, PRN Other -See Comment, Start date: 05/28/22 11:58:00 CDT, Duration: 30 day, Stop date: 06/27/22 11:57:00 CDT, 0 benzocaine- No Notes: Leonid indigo menthol 7-16 Cepacol l topical 16:58: lozenges Bartolome n 00 Dispense 1 box = 16 lozenges (Same As: Cepacol Lozenges) simethicone No Notes: Leonid indigo 7-16 (Same as: l 16:58: Mylicon) [place] 00 oxytocin 30 No Notes: Leonid indigo units in NS - Hazardous l 500 mL 16:58: Drug Group Mame nn (Titrate) 00 3:Reproduc IV 30 unit tive risk Hazardous Drug -- Refer to safe handling procedure PPE Matrix Saline No Notes: Memoria Flush 0.9% - (Same as: l 16:58: BD [place] 00 Posiflush) Lactated No 1,000 mL, Leonid indigo Ringers IV 05-28 Rate: 125 l 1,000 mL 16:58: ml/hr, Infuse over: 8 hr, Route: IV, Dosing Weight 114.091 kg, Total Volume: 1,000, see special instructio n for rate while completing infusion from recovery for the 20 Units of Oxytocin., Start date: 05/28/22 11:58:00 CDT, Duration.. . bisacodyl No Notes: Memori a 7-16 (Same As: l 16:58: Dulcolax, [place] 00 Bisco-Lax) lanolin No 1 appl, Memoria topical -16 Route: l cream 16:58: TOP, PRN, Drug form: OINT, PRN Other -See Comment, Start date: 05/28/22 11:58:00 CDT, Duration: 30 day, Stop date: 06/27/22 11:57:00 CDT, 0 benzocaine- No Notes: Leonid indigo menthol 7-16 Cepacol l topical 16:58: lozenges Bartolome n 00 Dispense 1 box = 16 lozenges (Same As: Cepacol Lozenges) simethicone No Notes: Leonid indigo -16 (Same as: l 16:58: Mylicon) [place] 00 oxytocin 30 No Notes: Leonid indigo units in NS 7-16 Hazardous l 500 mL 16:58: Drug Group Mame nn (Titrate) 00 3:Reproduc IV 30 unit tive risk Hazardous Drug -- Refer to safe handling procedure PPE Matrix Saline No Notes: Memoria Flush 0.9% 05-28 (Same as: l 16:58: BD [place] Posiflush) famotidine No Route: IV, M emoria (ANES) - Drug form: l 16:37: INJ, ONCE, [place] Stop date: 05/28/22 11:37:00 CDT sodium No Route: PO, Memor ia citrate 05-28 Drug Form: l (ANES) 16:37: INJ, ONCE, Mame nn Stop date: 05/28/22 11:37:00 CDT ondansetron No Route: IV, Memoria (ANES) -16 Drug form: l 16:37: INJ, ONCE, [place] Stop date: 05/28/22 11:37:00 CDT lidocaine No Route: Memori a (ANES) 7-16 EPIDURAL, l 16:37: Drug form: Willie INJ, ONCE, Stop date: 05/28/22 11:37:00 CDT sodium No Route: Memoria bicarbonate 7-16 EPIDURAL, l (ANES) 16:37: Drug form: Mame nn 00 INJ, ONCE, Stop date: 05/28/22 11:37:00 CDT famotidine No Route: IV, M emoria (ANES) 05-28 Drug form: l 16:37: INJ, ONCE, [place] Stop date: 05/28/22 11:37:00 CDT sodium No Route: PO, Memor ia citrate 05-28 Drug Form: l (ANES) 16:37: INJ, ONCE, Mame nn Stop date: 05/28/22 11:37:00 CDT ondansetron 2021-0 No Route: IV, Memoria (ANES) 7- Drug form: l 16:37: INJ, ONCE, [place] Stop date: 05/28/22 11:37:00 CDT lidocaine 2021-0 No Route: Memori a (ANES) 7-16 EPIDURAL, l 16:37: Drug form: [place] INJ, ONCE, Stop date: 05/28/22 11:37:00 CDT sodium 2021-0 No Route: Memoria bicarbonate 7-16 EPIDURAL, l (ANES) 16:37: Drug form: Mame nn INJ, ONCE, Stop date: 05/28/22 11:37:00 CDT famotidine 2021-0 No Route: IV, M emoria (ANES) -16 Drug form: l 16:37: INJ, ONCE, [place] 00 Stop date: 05/28/22 11:37:00 CDT sodium 2021-0 No Route: PO, Memor ia citrate 05-28 Drug Form: l (ANES) 16:37: INJ, ONCE, Mame nn Stop date: 05/28/22 11:37:00 CDT ondansetron 2021-0 No Route: IV, Memoria (ANES) 7-16 Drug form: l 16:37: INJ, ONCE, Willie Stop date: 05/28/22 11:37:00 CDT lidocaine 2021-0 No Route: Memori a (ANES) 7-16 EPIDURAL, l 16:37: Drug form: [place] 00 INJ, ONCE, Stop date: 05/28/22 11:37:00 CDT sodium 2021-0 No Route: Memoria bicarbonate 7-16 EPIDURAL, l (ANES) 16:37: Drug form: Mame nn 00 INJ, ONCE, Stop date: 05/28/22 11:37:00 CDT oxytocin 2021-0 No Route: IV, Mem oria (ANES) 30 05-28 Drug form: l unit 16:33: SOLN, [place] Start date: 05/28/22 11:33:00 CDT, Stop date: 05/28/22 12:33:00 CDT oxytocin 2021-0 No Route: IV, Mem oria (ANES) 30 7-16 Drug form: l unit 16:33: SOLN, [place] 00 Start date: 05/28/22 11:33:00 CDT, Stop date: 05/28/22 12:33:00 CDT oxytocin No Route: IV, Mem oria (ANES) 30 7-16 Drug form: l unit 16:33: SOLN, [place] 00 Start date: 05/28/22 11:33:00 CDT, Stop date: 05/28/22 12:33:00 CDT acetaminoph No Notes: Max Memoria en 7-16 acetaminop l 16:23: hen 4000 [place] 00 mg/day (4 gm/day). (Same as: Tylenol Extra Strength) oxyCODONE No Notes: Memori a immediate 7-16 (Same as: l release 16:23: Roxicodone Herm sina ) hydromorpho No Notes: Leonid indigo ne 7-16 Same as l 16:23: Dilaudid [place] 00 ondansetron No Notes: Leonid indigo 7-16 (Same as: l 16:23: Zofran) [place] 00 MEDICATION WASTE Product Size: 4 mg Product Wasted: ___ mg naloxone No Notes: Memoria 7-16 Same as l 16:23: Narcan [place] 00 nalbuphine No Notes: Memor ia 7-16 (Same As: l 16:23: Nubain) [place] acetaminoph No Notes: Max Memoria en 7-16 acetaminop l 16:23: hen 4000 [place] 00 mg/day (4 gm/day). (Same as: Tylenol [...] Wasted: ___ mg naloxone No Notes: Memoria -16 Same as l 16:23: Narcan nalbuphine No Notes: Memor ia 7-16 (Same As: l 16:23: Nubain) acetaminoph No Notes: Max Memoria en 05-28 acetaminop l 16:23: hen 4000 mg/day (4 gm/day). (Same as: Tylenol Extra Strength) oxyCODONE No Notes: Memori a immediate 05-28 (Same as: l release 16:23: Roxicodone ) hydromorpho No Notes: Leonid indigo ne 05-28 Same as l 16:23: Dilaudid ondansetron No Notes: Leonid indigo -16 (Same as: l 16:23: Zofran) MEDICATION WASTE Product Size: 4 mg Product Wasted: ___ mg naloxone No Notes: Memoria -16 Same as l 16:23: Narcan nalbuphine No Notes: Memor ia 05-28 (Same [...] 05/28/22 12:08:00 CDT vancomycin No Route: IV, Jim emoria (ANES) 05-28 Drug form: l mg + Sodium 16:08: INJ, Bartolome n Chloride 00 Dosing 0.9% IV Weight (ANES) 500 114.1, kg, mL Start date: 05/28/22 11:08:00 CDT, Stop date: 05/28/22 12:08:00 CDT gentamicin 2021-0 No Route: IV, Jim emoria (ANES) 05-28 Drug form: l mg 16:08: INJ, Start [place] 00 date: 05/28/22 11:08:00 CDT, Stop date: 05/28/22 12:08:00 CDT vancomycin No Route: IV, Jim emoria (ANES) 05-28 Drug form: l mg + Sodium 16:08: INJ, Bartolome n Chloride 00 Dosing 0.9% IV Weight (ANES) 500 114.1, kg, mL Start date: 05/28/22 11:08:00 CDT, Stop date: 05/28/22 12:08:00 CDT phenylephri 2021-0 No Route: Leonid indigo ne (ANES) - IVP, Drug l 100 16:07: form: INJ, [place] microgram 00 Start date: 05/28/22 11:07:00 CDT, Stop date: 05/28/22 12:07:00 CDT phenylephri 2021-0 No Route: Leonid indigo ne (ANES) 7-16 IVP, Drug l 100 16:07: form: INJ, Willie microgram Start date: 05/28/22 11:07:00 CDT, Stop date: 05/28/22 12:07:00 CDT phenylephri 2021-0 No Route: Leonid indigo ne (ANES) 7-16 IVP, Drug l 100 16:07: form: INJ, [place] microgram Start date: 05/28/22 11:07:00 CDT, Stop date: 05/28/22 12:07:00 CDT azithromyci No Route: IV, Memoria n (ANES) 7-16 Drug form: l 500 mg 16:06: INJ, Start Mame nn 00 date: 05/28/22 11:06:00 CDT, Stop date: 05/28/22 12:06:00 CDT azithromyci No Route: IV, Memoria n (ANES) 7-16 Drug form: l 500 mg 16:06: INJ, Start Mame nn date: 05/28/22 11:06:00 CDT, Stop date: 05/28/22 12:06:00 CDT azithromyci No Route: IV, Memoria n (ANES) 7-16 Drug form: l 500 mg 16:06: INJ, Start Mame nn date: 05/28/22 11:06:00 CDT, Stop date: 05/28/22 12:06:00 CDT Lactated No Route: IV, Mem oria [...] 50 00 (Same as: mL Phenergan) oxytocin No Notes: Leonid indigo units in NS 7-16 Hazardous l 500 mL 03:27: Drug Group Mame nn (Titrate) 00 3:Reproduc IV 30 unit tive risk Hazardous Drug -- Refer to safe handling procedure PPE Matrix oxytocin 2021-0 No Notes: Leonid indigo units in NS [...] Leonid indigo 7-15 (Same l 22:03: as:Cytotec [place] 00 ) Take with food Hazardous Drug Group 3:Reproduc tive risk Hazardous Drug -- Refer to safe handling procedure PPE Matrix 25 microgram = 1/4 tab of 100 microgram. misoprostol No Notes: Leonid nidigo 7-15 (Same l 22:03: as:Cytotec [place] 00 ) Take with food Hazardous Drug Group 3:Reproduc tive risk Hazardous Drug -- Refer to safe handling procedure PPE Matrix 25 microgram = 1/4 tab of 100 microgram. vancomycin 2000 mg: Me moria 7-15 infuse l 21:00: over 2.5 [place] 00 hours vancomycin No 2000 mg: Me moria 7-15 infuse l 21:00: over 2.5 [place] 00 hours vancomycin No 2000 mg: Me moria 7-15 infuse l 21:00: over 2.5 [place] 00 hours Vancomycin No PHARMACY [facility] 05-27 USE ONLY, l Dosing 20:01: Route: [place] Consult 56 MISC, PRN, Drug form: MISC, PRN Other -See Comment, Start date: 05/27/22 15:01:56 CDT, Stop date: 06/26/22 15:01:56 CDT, 30 day Vancomycin No PHARMACY [facility] 7-15 USE ONLY, l Dosing 20:01: Route: [place] Consult 56 MISC, PRN, Drug form: MISC, PRN Other -See Comment, Start date: 05/27/22 15:01:56 CDT, Stop date: 06/26/22 15:01:56 CDT, 30 day Vancomycin No PHARMACY [facility] 7-15 USE ONLY, l Dosing 20:01: Route: [place] Consult 56 MISC, PRN, Drug form: MISC, PRN Other -See Comment, Start date: 05/27/22 15:01:56 CDT, Stop date: 06/26/22 15:01:56 CDT, 30 day acetaminoph No Notes: Max Memoria en - acetaminop l 20:00: hen 4000 [place] 00 [...] Memoria 7-15 (Same as: l 20:00: Pitocin) [place] 00 Hazardous Drug Group 3:Reproduc tive risk [...] ia 7-15 (Same As: l 20:00: Hemabate) [place] tranexamic No Notes: Memor ia acid 7-15 (Same As: l 20:00: Cyklokapro [place] 00 n) acetaminoph No Notes: Max Memoria en 7-15 acetaminop l 20:00: hen 4000 [place] 00 [...] ia 7-15 (Same As: l 20:00: Hemabate) [place] tranexamic No Notes: Memor ia acid 7-15 (Same As: l 20:00: Cyklokapro [place] 00 n) acetaminoph No Notes: Max Memoria en 7-15 acetaminop l 20:00: hen 4000 [place] 00 [...] 7-15 (Same As: l 0.025 20:00: Lomotil) [place] mg-2.5 mg 00 MAX Adult oral tablet dose = 8 tabs/day carboprost No Notes: Memor ia 7-15 (Same As: l 20:00: Hemabate) [place] 00 tranexamic No Notes: Memor ia acid 7-15 (Same As: l 20:00: Cyklokapro [place] 00 n) Lactated No 1,000 mL, Leonid [...] 7-15 (Same as: l release 19:52: Roxicodone Herm sina ) ondansetron No Notes: Leonid indigo 7-15 (Same as: l 19:52: Zofran) MEDICATION WASTE Product Size: 4 mg Product Wasted: ___ mg lidocaine No Notes: Memori a 1% 7-15 Preservati l injectable 19:52: ve free. Her roberts solution (Same as: Xylocaine MPF) lidocaine No Notes: Memori a 1% 7-15 Preservati l 19:52: ve free. Willie (Same as: Xylocaine MPF) terbutaline No Notes: Leonid indigo 7-15 DO NOT l 19:52: USE IN Willie [employer] (Same As: Brethine) Dermoplast No Notes: Memor ia Pain 05-27 (Same As: l Relieving 19:52: Dermoplast He [...] Lactated No 1,000 mL, Leonid indigo Ringers - Rate: 125 l Injection 19:52: ml/hr, Bartolome [...] No Notes: Leonid indigo units in NS -15 Hazardous l 500 mL IV 19:52: Drug Group He rmann 19.98 unit 00 3:Reproduc tive risk Hazardous Drug -- Refer to safe handling procedure PPE Matrix butorphanol No Notes: Leonid indigo 7-15 (Same As: l 19:52: Stadol) MEDICATION WASTE Product Size: 2 mg Product Wasted: ___ mg oxyCODONE No Notes: Memori a immediate -15 (Same as: l release 19:52: Roxicodone Herm ) ondansetron No Notes: Leonid indigo 7-15 (Same as: l 19:52: Zofran) [place] MEDICATION WASTE Product Size: 4 mg Product Wasted: ___ mg lidocaine No Notes: Memori a 1% 7-15 Preservati l injectable 19:52: ve free. Her roberts solution 00 (Same as: Xylocaine MPF) lidocaine No Notes: Memori a 1% 7-15 Preservati l 19:52: ve free. [place] (Same as: Xylocaine MPF) terbutaline No Notes: Leonid indigo 7-15 DO NOT l 19:52: USE IN [place] [employer] ARE[employer] (Same As: Brethine) Dermoplast No Notes: Memor ia Pain 15 (Same As: l Relieving 19:52: Dermoplast He [...] Lactated No 1,000 mL, Leonid indigo Ringers 05-27 Rate: 125 l Injection 19:52: ml/hr, Bartolome [...] 7-15 (Same as: l release 19:52: Roxicodone Herm ) ondansetron No Notes: Leonid indigo 7-15 (Same as: l 19:52: Zofran) MEDICATION WASTE Product Size: 4 mg Product Wasted: ___ mg lidocaine No Notes: Memori a 1% 7-15 Preservati l injectable 19:52: ve free. Her roberts solution (Same as: Xylocaine MPF) lidocaine No Notes: Memori a 1% 7-15 Preservati l 19:52: ve free. [place] (Same as: Xylocaine MPF) terbutaline No Notes: Leonid indigo 7-15 DO NOT l 19:52: USE IN [place] [employer] (Same As: Brethine) Dermoplast No Notes: Memor ia Pain 7-15 (Same As: l Relieving 19:52: Dermoplast He rmann 20%-0.5% ) WASTE: topical Aerosol - spray Return to Pharmacy FOR EXTERNAL USE ONLY oxytocin 30 No Notes: Leonid indigo units in NS 7-15 Hazardous l 500 mL 19:52: Drug Group Mame nn (Titrate) 00 3:Reproduc IV 30 unit tive risk Hazardous Drug -- Refer to safe handling procedure PPE Matrix ferrous Yes PO, 0 Memoria sulfate 7-07 Refill(s) l 23:10: [place] 0 Yes PO, Daily, Mem oria Complete 7-07 0 l with DHA 23:10: Refill(s) Herm sina ferrous 0 Yes PO, 0 Memoria sulfate 7-07 Refill(s) l 23:10: [place] Yes PO, Daily, Mem oria Complete 7-07 0 l with DHA 23:10: Refill(s) Herm sina ferrous 0 Yes PO, 0 Memoria sulfate 7-07 Refill(s) l 23:10: [place] 00 0 Yes PO, Daily, Mem oria Complete 7-07 0 l with DHA 23:10: Refill(s) Herm sina Zofran ODT Yes 4 mg = 1 Mem oria 7-07 tab, PO, l 23:09: TID, PRN [place] 00 Nausea / Vomiting, Dissolve tab under tongue, # 10 tab, 0 Refill(s) Zofran ODT Yes 4 mg = 1 Mem oria 7-07 tab, PO, l 23:09: TID, PRN [place] 00 Nausea / Vomiting, Dissolve tab under tongue, # 10 tab, 0 Refill(s) Zofran ODT 0 Yes 4 mg = 1 Mem oria 7-07 tab, PO, l 23:09: TID, PRN [place] 00 Nausea / Vomiting, Dissolve tab under tongue, # 10 tab, 0 Refill(s) Metoclopram 2020-11 Yes 10 mg = 1 M emoria meche 10 MG 2-16 tab, PO, l Oral Tablet 21:22: QID, X 10 H ermann [Reglan] day, # 40 tab, 0 Refill(s), Pharmacy: [facility] #[id number], 162.56, cm, 10/28/21 12:01:00 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, Height, 48.182, kg, 10/28/21 12:01:00 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, Weight Metoclopram 2020-11 Yes 10 mg = 1 M emoria meche 10 MG 2-16 tab, PO, l Oral Tablet 21:22: QID, X 10 H ermann [Reglan] day, # 40 tab, 0 Refill(s), Pharmacy: [facility] #[id number], 162.56, cm, 10/28/21 12:01:00 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, Height, 48.182, kg, 10/28/21 12:01:00 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, Weight Metoclopram 2020-11 Yes 10 mg = 1 M emoria meche 10 MG 2-16 tab, PO, l Oral Tablet 21:22: QID, X 10 H ermann [Reglan] 00 day, # 40 tab, 0 Refill(s), Pharmacy: [id number], 162.56, cm, 10/28/21 12:01:00 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, Height, 48.182, kg, 10/28/21 12:01:00 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, Weight Saline 2020-11 No Notes: Memoria Flush 0.9% 2-16 Same as: l 18:06: BD [place] 00 Posiflush Sterile Sodium 2020-11 No 1,000 mL, Memori a Chloride 2-16 1000 l 0.9% 18:06: ml/hr, Willie (Bolus) IV 00 Infuse Over: 1 hr, Route: IV, 1,000, Drug form: INJ, ONCE, Priority: STAT, Dosing Weight 101.045 kg, Start date: 10/28/21 12:06:00 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, Stop date: 10/28/21 12:06:00 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, 0 Reglan 2020-11 No Notes: Memoria 2-16 (Same as: l 18:06: Reglan) [place] 00 Saline 2020-11 No Notes: Memoria Flush 0.9% 2-16 Same as: l 18:06: BD [place] 00 Posiflush Sterile Sodium 2020-11 No 1,000 mL, Memori a Chloride 2-16 1000 l 0.9% 18:06: ml/hr, Willie (Bolus) IV 00 Infuse Over: 1 hr, Route: IV, 1,000, Drug form: INJ, ONCE, Priority: STAT, Dosing Weight 101.045 kg, Start date: 10/28/21 12:06:00 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, Stop date: 10/28/21 12:06:00 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, 0 Reglan 2020-11 No Notes: Memoria 2-16 (Same as: l 18:06: Reglan) [place] 00 Saline 2020-11 No Notes: Memoria Flush 0.9% 2-16 Same as: l 18:06: BD [place] 00 Posiflush Sterile Sodium 2020-11 No 1,000 mL, Memori a Chloride 2-16 1000 l 0.9% 18:06: ml/hr, [place] (Bolus) IV 00 Infuse Over: 1 hr, Route: IV, 1,000, Drug form: INJ, ONCE, Priority: STAT, Dosing Weight 101.045 kg, Start date: 10/28/21 12:06:00 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, Stop date: 10/28/21 12:06:00 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, 0 Reglan 2020- No Notes: Memoria 2-16 (Same as: l 18:06: Reglan) Willie Levofloxaci 2020-0 Yes 750 mg = 1 Memoria n 750 MG 7-06 tab, PO, l Oral Tablet 05:05: Daily, X 5 [place] [Levaquin] day, # 5 tab, 0 Refill(s), Pharmacy: [facility] #[id number], 162.56, cm, 05/17/21 21:44:00 CDT, Height, 101.045, kg, 05/17/21 21:44:00 CDT, Weight Ondansetron 2021-0 Yes 4 mg = 1 Me moria 4 MG Oral 7-06 tab, PO, l Tablet 05:05: TID, X 3 [place] [Zofran] day, # 9 tab, 0 Refill(s), Pharmacy: [facility] #[id number], 162.56, cm, 05/17/21 21:44:00 CDT, Height, 101.045, kg, 05/17/21 21:44:00 CDT, Weight Levofloxaci 2020-0 Yes 750 mg = 1 Memoria n 750 MG 7-06 tab, PO, l Oral Tablet 05:05: Daily, X 5 [place] [Levaquin] day, # 5 tab, 0 Refill(s), Pharmacy: [facility] #[id number], 162.56, cm, 05/17/21 21:44:00 CDT, Height, 101.045, kg, 05/17/21 21:44:00 CDT, Weight Ondansetron 2021-0 Yes 4 mg = 1 Me moria 4 MG Oral 7-06 tab, PO, l Tablet 05:05: TID, X 3 [place] [Zofran] day, # 9 tab, 0 Refill(s), Pharmacy: [facility] #[id number], 162.56, cm, 05/17/21 21:44:00 CDT, Height, 101.045, kg, 05/17/21 21:44:00 CDT, Weight Levofloxaci 1-0 Yes 750 mg = 1 Memoria n 750 MG 7-06 tab, PO, l Oral Tablet 05:05: Daily, X 5 [place] [Levaquin] 00 day, # 5 tab, 0 Refill(s), Pharmacy: [facility] #[id number], 162.56, cm, 05/17/21 21:44:00 CDT, Height, 101.045, kg, 05/17/21 21:44:00 CDT, Weight Ondansetron Yes 4 mg = 1 Me moria 4 MG Oral 7-06 tab, PO, l Tablet 05:05: TID, X 3 [place] [Zofran] 00 day, # 9 tab, 0 Refill(s), Pharmacy: [facility] #[id number], 162.56, cm, 05/17/21 21:44:00 CDT, Height, 101.045, kg, 05/17/21 21:44:00 CDT, Weight Levaquin No Notes: Do Leonid indigo 7-06 not give l 03:33: w/antacids [place] 00 , dairy pdt & minerals Take 1 hr before or 2 hr after dairy pdt (Same as:Levaqui n) Levaquin No Notes: Do Leonid indigo 7-06 not give l 03:33: w/antacids [place] 00 , dairy pdt & minerals Take 1 hr before or 2 hr after dairy pdt (Same as:Levaqui n) Levaquin No Notes: Do Leonid indigo 7-06 not give l 03:33: w/antacids [place] 00 , dairy pdt & minerals Take 1 hr before or 2 hr after dairy pdt (Same as:Levaqui n) Famotidine No 20 mg, 2 Mem oria 7-06 mL, Route: l 03:18: IV, Drug form: INJ, ONCE, Dosing Weight 101.045, kg, Start date: 05/17/21 22:18:00 CDT, Stop date: 05/17/21 22:18:00 CDT, 0 Famotidine No 20 mg, 2 Mem oria 7-06 mL, Route: l 03:18: IV, Drug form: INJ, ONCE, Dosing Weight 101.045, kg, Start date: 05/17/21 22:18:00 CDT, Stop date: 05/17/21 22:18:00 CDT, 0 Famotidine No 20 mg, 2 Mem oria 7-06 mL, Route: l 03:18: IV, Drug [place] 00 form: INJ, ONCE, Dosing Weight 101.045, kg, Start date: 05/17/21 22:18:00 CDT, Stop date: 05/17/21 22:18:00 CDT, 0 Sodium 2020-0 No 1,000 mL, Memori a Chloride 7- 1000 l 0.9% 03:16: ml/hr, [place] (Bolus) IV 00 Infuse Over: 1 hr, Route: IV, 1,000, Drug form: INJ, ONCE, Priority: STAT, Dosing Weight 101.045 kg, Start date: 05/17/21 22:16:00 CDT, Stop date: 05/17/21 22:16:00 CDT, 0 Ondansetron 0 No Notes: Leonid indigo 7 (Same as: l 03:16: Zofran) [place] 00 MEDICATION WASTE Product Size: 4 mg Product Wasted: ___ mg GI cocktail No 45 mL, Leonid indigo (aluminum - Route: PO, l hydroxide/m 03:16: Dosing Herm [...] 0 Ondansetron 2020-0 No Notes: Leonid indigo 7-06 (Same as: l 03:16: Zofran) [place] 00 MEDICATION WASTE Product Size: 4 mg Product Wasted: ___ mg GI cocktail No 45 mL, Leonid indigo (aluminum 05-18 Route: PO, l hydroxide/m 03:16: Dosing Herm sina agnesium 00 Weight hydroxide/l 101.045, idocaine/si kg, ONCE, methicone) STAT, Start date: 05/17/21 22:16:00 CDT, Stop date: 05/17/21 22:16:00 CDT Sodium No 1,000 mL, Memori a Chloride 05-18 1000 l 0.9% 03:16: ml/hr, Willie (Bolus) IV 00 Infuse Over: 1 hr, Route: IV, 1,000, Drug form: INJ, ONCE, Priority: STAT, Dosing Weight 101.045 kg, Start date: 05/17/21 22:16:00 CDT, Stop date: 05/17/21 22:16:00 CDT, 0 Ondansetron No Notes: Leonid indigo 05-18 (Same as: l 03:16: Zofran) [place] 00 MEDICATION WASTE Product Size: 4 mg Product Wasted: ___ mg GI cocktail No 45 mL, Leonid indigo (aluminum 05-18 Route: PO, l hydroxide/m 03:16: Dosing Herm sina agnesium 00 Weight hydroxide/l 101.045, idocaine/si kg, ONCE, methicone) STAT, Start date: 05/17/21 22:16:00 CDT, Stop date: 05/17/21 22:16:00 CDT Ondansetron Yes 4 mg = 1 Me moria 4 MG Oral 7-01 tab, PO, l Tablet 14:02: Q8H, PRN [place] [Zofran] 00 Nausea/vom iting, X 10 day, # 30 tab, 0 Refill(s) Ondansetron Yes 4 mg = 1 Me moria 4 MG Oral 7-01 tab, PO, l Tablet 14:02: Q8H, PRN Willie [Zofran] 00 Nausea/vom iting, X 10 day, # 30 tab, 0 Refill(s) Ondansetron Yes 4 mg = 1 Me moria 4 MG Oral 05-13 tab, PO, l Tablet 14:02: Q8H, PRN [place] [Zofran] 00 Nausea/vom iting, X 10 day, # 30 tab, 0 Refill(s) Tylenol 1-0 No 650 mg, Memoria 05-13 Route: PO, l 13:30: Drug form: [place] 00 TAB, ONCE, Dosing Weight 100, kg, Priority: STAT, Start date: 05/13/21 8:30:00 CDT, Stop date: 05/13/21 8:30:00 CDT Motrin 1-0 No 600 mg, Memoria 05-13 Route: PO, l 13:30: Drug form: [place] 00 TAB, ONCE, Dosing Weight 100, kg, Priority: STAT, Start date: 05/13/21 8:30:00 CDT, Stop date: 05/13/21 8:30:00 CDT Zofran ODT 1-0 No 4 mg, Memori a 05-13 Route: PO, l 13:30: Drug form: [place] 00 TABDIS, ONCE, Dosing Weight 100, kg, Priority: STAT, Start date: 05/13/21 8:30:00 CDT, Stop date: 05/13/21 8:30:00 CDT Dexamethaso 1-0 No 10 mg, Leonid indigo ne 05-13 Route: IM, l 13:30: ONCE, [place] 00 Dosing Weight 100, kg, Priority: STAT, Start date: 05/13/21 8:30:00 CDT, Stop date: 05/13/21 8:30:00 CDT Tylenol 1-0 No 650 mg, Memoria 05-13 Route: PO, l 13:30: Drug form: [place] 00 TAB, ONCE, Dosing Weight 100, kg, Priority: STAT, Start date: 05/13/21 8:30:00 CDT, Stop date: 05/13/21 8:30:00 CDT Motrin 1-0 No 600 mg, Memoria 05-13 Route: PO, l 13:30: Drug form: [place] 00 TAB, ONCE, Dosing Weight 100, kg, [...] 05-13 Route: PO, l 13:30: Drug form: [place] TAB, ONCE, Dosing Weight 100, kg, Priority: STAT, Start date: 05/13/21 8:30:00 CDT, Stop date: 05/13/21 8:30:00 CDT Motrin 2020-0 No 600 mg, Memoria 05-13 Route: PO, l 13:30: Drug form: [place] 00 TAB, ONCE, Dosing Weight 100, kg, [...] # 6 [Pyridium] tab, 0 Refill(s) Ondansetron Yes 4 mg = 1 Me moria 4 MG Oral 3-23 tab, PO, l Tablet 19:44: TID, PRN Willie [Zofran] 00 Nausea & Vomiting, # 15 tab, 0 Refill(s) Nitrofurant 0 No 100 mg = 1 Memoria oin 100 MG 3-23 cap, PO, l Oral 19:44: Q12H, X 5 [place] Capsule 00 day, # 10 [Macrobid] cap, 0 Refill(s) Phenazopyri No 100 mg = 1 Memoria dine 3-23 tab, PO, l hydrochlori 19:44: TID, PRN He rmann de 100 MG 00 Dysuria, X Oral Tablet 2 day, # 6 [Pyridium] tab, 0 Refill(s) Ondansetron Yes 4 mg = 1 Me moria 4 MG Oral 3-23 tab, PO, l Tablet 19:44: TID, PRN [place] [Zofran] 00 Nausea & Vomiting, # 15 tab, 0 Refill(s) Nitrofurant 0 No 100 mg = 1 Memoria oin 100 MG 3-23 cap, PO, l Oral 19:44: Q12H, X 5 [place] Capsule 00 day, # 10 [Macrobid] cap, [...] tab, PO, l Tablet 19:44: TID, PRN [place] [Zofran] 00 Nausea & Vomiting, # 15 tab, 0 Refill(s) Nitrofurant 0 No 100 mg = 1 Memoria oin 100 MG 3-23 cap, PO, l Oral 19:44: Q12H, X 5 [place] Capsule 00 day, # 10 [Macrobid] cap, 0 Refill(s) ketOROLAC 2021-0 No 15 mg, Memori a 15 mg/mL 3-23 Route: l injectable 19:35: IVP, Drug He rmann solution 00 form: INJ, ONCE, Dosing Weight 99.545, kg, Priority: STAT, Start date: 02/02/21 14:35:00 CDT, Stop date: 02/02/21 14:35:00 CDT Ketorolac 2021-0 No 15 mg, Memori a 3-23 Route: l 19:35: IVP, Drug [place] 00 [...] CDT, Stop date: 02/02/21 14:35:00 CDT Ketorolac 2021-0 No 15 mg, Memori a 3-23 Route: l 19:35: IVP, Drug [place] 00 form: INJ, ONCE, Dosing Weight 99.545, kg, Priority: STAT, Start date: 02/02/21 14:35:00 CDT, Stop date: 02/02/21 14:35:00 CDT ketOROLAC 2021-0 No 15 mg, Memori a 15 mg/mL 3-23 Route: l injectable 19:35: IVP, Drug He rmann solution 00 form: INJ, ONCE, Dosing Weight 99.545, kg, Priority: STAT, Start date: 02/02/21 14:35:00 CDT, Stop date: 02/02/21 14:35:00 CDT Ketorolac 2021-0 No 15 mg, Memori a 3-23 Route: l 19:35: IVP, Drug Willie 00 form: INJ, ONCE, Dosing Weight 99.545, kg, Priority: STAT, Start date: 02/02/21 14:35:00 CDT, Stop date: 02/02/21 14:35:00 CDT Macrobid 1-0 No 100 mg, Memori a 3-23 Route: PO, l 18:24: ONCE, [place] 00 Dosing Weight 99.545, kg, Priority: STAT, Start date: 02/02/21 13:24:00 CDT, Stop date: 02/02/21 13:24:00 CDT Macrobid 2020-0 No 100 mg, Memori a 3-23 Route: PO, l 18:24: ONCE, Willie 00 Dosing Weight 99.545, kg, Priority: STAT, Start date: 02/02/21 13:24:00 CDT, Stop date: 02/02/21 13:24:00 CDT Macrobid 2020-0 No 100 mg, Memori a 3-23 Route: PO, l 18:24: ONCE, Dosing Weight 99.545, kg, Priority: STAT, Start date: 02/02/21 13:24:00 CDT, Stop date: 02/02/21 13:24:00 CDT Sodium 1-0 No 1,000 mL, Memori a Chloride 3-23 Infuse l 0.9% 17:28: Over: 1 Willie (Bolus) IV 00 hr, Route: IV, ONCE, Priority: STAT, Dosing Weight 99.545 kg, Start date: 02/02/21 12:28:00 CDT, Stop date: 02/02/21 12:28:00 CDT Morphine 1-0 No 4 mg, Memoria 3-23 Route: [...] 1-0 No 1,000 mL, Memori a Chloride 3-23 Infuse l 0.9% 17:28: Over: 1 Willie (Bolus) IV 00 hr, Route: IV, ONCE, Priority: STAT, Dosing Weight 99.545 kg, Start date: 02/02/21 12:28:00 CDT, Stop date: 02/02/21 12:28:00 CDT Morphine 1-0 No 4 mg, Memoria 3-23 Route: l 17:28: IVP, Drug Willie 00 form: INJ, ONCE, Dosing Weight 99.545, kg, Priority: STAT, Start date: 02/02/21 12:28:00 CDT, Stop date: 02/02/21 12:28:00 CDT Zofran 1-0 No 4 mg, Memoria 3-23 Route: l 17:28: IVP, Drug [place] 00 form: INJ, ONCE, Dosing Weight 99.545, kg, Priority: STAT, Start date: 02/02/21 12:28:00 CDT, Stop date: 02/02/21 12:28:00 CDT Sodium 1-0 No 1,000 mL, Memori a Chloride 3-23 Infuse l 0.9% 17:28: Over: 1 [place] (Bolus) IV 00 hr, Route: IV, ONCE, Priority: STAT, Dosing Weight 99.545 kg, Start date: 02/02/21 12:28:00 CDT, Stop date: 02/02/21 12:28:00 CDT Morphine 1-0 No 4 mg, Memoria 3-23 Route: l 17:28: IVP, Drug [place] 00 form: INJ, ONCE, Dosing Weight 99.545, kg, Priority: STAT, Start date: 02/02/21 12:28:00 CDT, Stop date: 02/02/21 12:28:00 CDT Zofran 1-0 No 4 mg, Memoria 3-23 Route: l 17:28: IVP, Drug Willie 00 form: INJ, ONCE, Dosing Weight 99.545, kg, Priority: STAT, Start date: 02/02/21 12:28:00 CDT, Stop date: 02/02/21 12:28:00 CDT Ondansetron 2018-1 Yes 4 mg = 1 Me moria 4 MG Oral 1-13 tab, PO, l Tablet 01:15: BID, # 10 Bartolome n [Zofran] 00 tab, 0 Refill(s) omeprazole 2018- Yes 10 mg = 1 Me moria 10 mg oral 1-13 cap, PO, l delayed 01:15: Daily, # Bartolome n release 00 30 cap, 0 capsule Refill(s) Ondansetron 2018- Yes 4 mg = 1 Me moria 4 MG Oral 1-13 tab, PO, l Tablet 01:15: BID, # 10 Bartolome n [Zofran] 00 tab, 0 Refill(s) omeprazole 2018- Yes 10 mg = 1 Me moria 10 mg oral 1-13 cap, PO, l delayed 01:15: Daily, # Bartolome n release 00 30 cap, 0 capsule Refill(s) Ondansetron 2017- Yes 4 mg = 1 Me moria 4 MG Oral 1-13 tab, PO, l Tablet 01:15: BID, # 10 Bartolome n [Zofran] 00 tab, 0 Refill(s) omeprazole 2017- Yes 10 mg = 1 Me moria 10 mg oral 1-13 cap, PO, l delayed 01:15: Daily, # Bartolome n release 00 30 cap, 0 capsule Refill(s) Ondansetron 2017-11 No Notes: Leonid indigo - (Same as: l 23:39: Zofran) Willie 00 MEDICATION WASTE Product Size: 4 mg Product Wasted: _0__ mg Famotidine 2017-11 No Notes: Memor ia - (Same as: l 23:39: Pepcid) Willie 00 Can be dilute in 5-10cc NS IVP: Slow IV push over at least 2 minutes. Morphine 2017-11 No Notes: Memoria - (Same l 23:39: as:MORPhin [place] 00 e Sulfate) Ondansetron 2017-11 No Notes: Leonid indigo - (Same as: l 23:39: Zofran) Willie 00 MEDICATION WASTE Product Size: 4 mg Product Wasted: _0__ mg Famotidine 2017-11 No Notes: Memor ia - (Same as: l 23:39: Pepcid) Willie 00 Can be dilute in 5-10cc NS IVP: Slow IV push over at least 2 minutes. Morphine 2017-11 No Notes: Memoria 11-24 (Same l 23:39: as:MORPhin Willie 00 e Sulfate) Ondansetron 2017-11 No Notes: Leonid indigo 11-24 (Same as: l 23:39: Zofran) Willie 00 MEDICATION WASTE Product Size: 4 mg Product Wasted: _0__ mg Famotidine 2017-11 No Notes: Memor ia 11-24 (Same as: l 23:39: Pepcid) [place] 00 Can be dilute in 5-10cc NS IVP: Slow IV push over at least 2 minutes. Morphine 2017-11 No Notes: Memoria 11-24 (Same l 23:39: as:MORPhin Willie 00 e Sulfate) Dicyclomine Dicyclomine Yes BLAIR MARIAM Q6H TAKE 1 UT HCl - 20 [...] UT e Glycol e Glycol 2-12 HAYDEN CAPFUL Phy sici 3350 Oral 3350 Oral 00:00: M.D. [...] nausea/ vomiting. Pantoprazol Pantoprazol 2016-11 Yes BLAIR MARIAM 1 QD Take 1 UT e Sodium 40 e Sodium 40 2-12 MD tablet po Physici MG Oral MG Oral 00:00: twice ans Tablet Tablet 00 daily Delayed Delayed Release Release Nitrofurant 2016-11 Yes 100 mg = 1 Memoria oin 100 MG 1-30 cap, PO, l Oral 19:02: BID, X 7 [place] Capsule 00 day, # 14 [Macrobid] cap, 0 Refill(s) Nitrofurant 2016-11 Yes 100 mg = 1 Memoria oin 100 MG 1-30 cap, PO, l Oral 19:02: BID, X 7 Willie Capsule 00 day, # 14 [Macrobid] cap, 0 Refill(s) Nitrofurant 2016-11 Yes 100 mg = 1 Memoria oin 100 MG 1-30 cap, PO, l Oral 19:02: BID, X 7 [place] Capsule day, # 14 [Macrobid] cap, 0 Refill(s) [...] 30 tab, 0 Tablet Refill(s) [Protonix] ketOROLAC 2016-11 No 30 mg, Memori a 30 mg/mL 30 Route: l injectable 18:40: IVP, Drug He rmann solution 00 form: INJ, ONCE, Dosing Weight 86.364, kg, Priority: STAT, Start date: 10/12/17 12:40:00 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, Stop date: 10/12/17 12:40:00 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 GI cocktail 2016-11 No 30 mL, Leonid indigo 30 Route: PO, l 18:40: Dosing Willie 00 Weight 86.364, kg, ONCE, STAT, Start date: 10/12/17 12:40:00 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, Stop date: 10/12/17 12:40:00 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 ketOROLAC 2016-11 No 30 mg, Memori a 30 mg/mL 30 Route: l injectable 18:40: IVP, Drug He rmann solution 00 form: INJ, ONCE, Dosing Weight 86.364, kg, Priority: STAT, Start date: 10/12/17 12:40:00 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, Stop date: 10/12/17 12:40:00 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 GI cocktail 2016-11 No 30 mL, Leonid indigo 30 Route: PO, l 18:40: Dosing Willie 00 Weight 86.364, kg, ONCE, STAT, Start date: 10/12/17 12:40:00 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, Stop date: 10/12/17 12:40:00 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 ketOROLAC 2016-11 No 30 mg, Memori a 30 mg/mL 12-12 Route: l injectable 18:40: IVP, Drug He rmann solution 00 form: INJ, ONCE, Dosing Weight 86.364, kg, Priority: STAT, Start date: 10/12/17 12:40:00 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, Stop date: 10/12/17 12:40:00 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 GI cocktail 2016- No 30 mL, Leonid indigo 12-12 Route: PO, l 18:40: Dosing [place] 00 Weight 86.364, kg, ONCE, STAT, Start date: 10/12/17 12:40:00 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, Stop date: 10/12/17 12:40:00 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 Zofran 2016- No 4 mg, Memoria 12-12 Route: l 17:30: IVP, Drug Willie 00 form: INJ, ONCE, Dosing Weight 86.364, kg, Priority: STAT, Start date: 10/12/17 11:30:00 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, Stop date: 10/12/17 11:30:00 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 Zofran 2016- No 4 mg, Memoria 12-12 Route: l 17:30: IVP, Drug Willie 00 form: INJ, ONCE, Dosing Weight 86.364, kg, Priority: STAT, Start date: 10/12/17 11:30:00 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, Stop date: 10/12/17 11:30:00 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 Zofran 2016- No 4 mg, Memoria 12-12 Route: l 17:30: IVP, Drug Willie 00 form: INJ, ONCE, Dosing Weight 86.364, kg, Priority: STAT, Start date: 10/12/17 11:30:00 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, Stop date: 10/12/17 11:30:00 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 Ondansetron 2016- No 4 mg, Memor ia 12-12 Route: l 15:18: IVP, ONCE, [place] 00 Dosing Weight 86.364, kg, Priority: STAT, Start date: 10/12/17 9:18:00 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, Stop date: 10/12/17 9:18:00 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 Famotidine 2016- No 20 mg, Memor ia 12-12 Route: l 15:18: IVP, ONCE, [place] 00 Dosing Weight 86.364, kg, Priority: STAT, Start date: 10/12/17 9:18:00 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, Stop date: 10/12/17 9:18:00 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 Sodium 2016-11 No 1,000 mL, Memori a Chloride 1-30 Infuse l 0.9% 15:18: Over: 1 [place] (Bolus) IV 00 hr, Route: IV, ONCE, Priority: STAT, Dosing Weight 86.364 kg, Start date: 10/12/17 9:18:00 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, Stop date: 10/12/17 9:18:00 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 Saline 2016-11 No Notes: Memoria Flush 0.9% 1-30 (Same as: l 15:18: BD Willie 00 Posiflush) Acetaminoph 2016-11 No 1 tab, Leonid indigo en 325 MG / 30 Route: PO, l Hydrocodone 15:18: Drug Form: [place] Bitartrate 00 TAB, 10 MG Oral Dosing Tablet Weight [[place] 86.364, 10/325] kg, ONCE, STAT, Start date: 10/12/17 9:18:00 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, Stop date: 10/12/17 9:18:00 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 Ondansetron 2016-11 No 4 mg, Memor ia -30 Route: l 15:18: IVP, ONCE, Willie 00 Dosing Weight 86.364, kg, Priority: STAT, Start date: 10/12/17 9:18:00 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, Stop date: 10/12/17 9:18:00 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 Famotidine 2016-11 No 20 mg, Memor ia -30 Route: l 15:18: IVP, ONCE, Willie 00 Dosing Weight 86.364, kg, Priority: STAT, Start date: 10/12/17 9:18:00 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, Stop date: 10/12/17 9:18:00 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 Sodium 2016-11 No 1,000 mL, Memori a Chloride 1-30 Infuse l 0.9% 15:18: Over: 1 Willie (Bolus) IV 00 hr, Route: IV, ONCE, Priority: STAT, Dosing Weight 86.364 kg, Start date: 10/12/17 9:18:00 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, Stop date: 10/12/17 9:18:00 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 Saline 2016-11 No Notes: Memoria Flush 0.9% 1-30 (Same as: l 15:18: BD Willie 00 Posiflush) Acetaminoph 2016-11 No 1 tab, Leonid indigo en 325 MG / 12-12 Route: PO, l Hydrocodone 15:18: Drug Form: Willie Bitartrate 00 TAB, 10 MG Oral Dosing Tablet Weight [[place] 86.364, 10/325] kg, ONCE, STAT, Start date: 10/12/17 9:18:00 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, Stop date: 10/12/17 9:18:00 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 Ondansetron 2016-11 No 4 mg, Memor ia 30 Route: l 15:18: IVP, ONCE, Dosing Weight 86.364, kg, Priority: STAT, Start date: 10/12/17 9:18:00 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, Stop date: 10/12/17 9:18:00 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 Famotidine 2016-11 No 20 mg, Memor ia 12-12 Route: l 15:18: IVP, ONCE, Dosing Weight 86.364, kg, Priority: STAT, Start date: 10/12/17 9:18:00 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, Stop date: 10/12/17 9:18:00 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 Sodium 2016-11 No 1,000 mL, Memori a Chloride -30 Infuse l 0.9% 15:18: Over: 1 Willie (Bolus) IV 00 hr, Route: IV, ONCE, Priority: STAT, Dosing Weight 86.364 kg, Start date: 10/12/17 9:18:00 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, Stop date: 10/12/17 9:18:00 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 Saline 2016-11 No Notes: Memoria Flush 0.9% 1-30 (Same as: l 15:18: BD Willie Posiflush) Acetaminoph 2016-11 No 1 tab, Leonid indigo en 325 MG / 12-12 Route: PO, l Hydrocodone 15:18: Drug Form: [place] Bitartrate 00 TAB, 10 MG Oral Dosing Tablet Weight [Bethel 86.364, 10/325] kg, ONCE, STAT, Start date: 10/12/17 9:18:00 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, Stop date: 10/12/17 9:18:00 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 Ondansetron Yes Special Mem oria 4 MG 4-09 Instructio l Disintegrat 02:34: ns: Bartolome paul ing Tablet 00 Dissolve [Zofran] tab under [...] 4-09 Route: PO, l 02:01: Drug form: [place] 00 TABDIS, ONCE, Dosing Weight 67.273, kg, Priority: STAT, Start date: 02/18/15 21:01:00, Stop date: 02/18/15 21:01:00 Tylenol 2014-0 No Notes: Do Memor ia 4- not exceed l 02:01: 4 gm/day. [place] (Same as: Tylenol) Zofran ODT No 4 mg, Memori a 4-09 Route: PO, l 02:01: Drug form: Willie TABDIS, ONCE, Dosing Weight 67.273, kg, Priority: STAT, Start date: 02/18/15 21:01:00, Stop date: 02/18/15 21:01:00 Tylenol 2014-0 No Notes: Do Memor ia 4- not exceed l 02:01: 4 gm/day. Willie (Same as: Tylenol) Zofran ODT No 4 mg, Memori a 4-09 Route: PO, l 02:01: Drug form: [place] TABDIS, ONCE, Dosing Weight 67.273, kg, Priority: STAT, Start date: 02/18/15 21:01:00, Stop date: 02/18/15 21:01:00 Tylenol 2014-0 No Notes: Do Memor ia 4-09 not exceed l 02:01: 4 gm/day. [place] 00 (Same as: Tylenol) Zofran ODT 0 No 4 mg, Memori a 4-09 Route: PO, l 01:19: Drug form: Willie 00 TABDIS, ONCE, Dosing Weight 67.273, kg, Priority: STAT, Start date: 02/18/15 20:19:00, Stop date: 02/18/15 20:19:00 Zofran ODT 2015-0 No 4 mg, Memori a 4-09 Route: PO, l 01:19: Drug form: [place] 00 TABDIS, ONCE, Dosing Weight 67.273, kg, Priority: STAT, Start date: 02/18/15 20:19:00, Stop date: 02/18/15 20:19:00 Zofran ODT 2015-0 No 4 mg, Memori a 4-09 Route: PO, l 01:19: Drug form: Willie 00 TABDIS, ONCE, Dosing Weight 67.273, kg, Priority: STAT, Start date: 02/18/15 20:19:00, Stop date: 02/18/15 20:19:00 Motrin 2014-0 No 600 mg, Memoria 1- Route: PO, l 02:39: Drug form: Willie 00 TAB, ONCE, Dosing Weight 47.727, kg, Priority: STAT, Start date: 12/08/14 20:39:00, Stop date: 12/08/14 20:39:00 Motrin 2014-0 No 600 mg, Memoria 1 Route: PO, l 02:39: Drug form: [place] 00 TAB, ONCE, Dosing Weight 47.727, kg, Priority: STAT, Start date: 12/08/14 20:39:00, Stop date: 12/08/14 20:39:00 Motrin 2014-0 No 600 mg, Memoria 1 Route: PO, l 02:39: Drug form: Willie 00 TAB, ONCE, Dosing Weight 47.727, kg, [...] Source Systolic blood 2022-09-17 119 mm[Hg] [facility] 07:00:26 [facility] Diastolic blood 2022-09-17 62 mm[Hg] [place] o f pressure 07:00:26 [facility] Heart rate 2022-09-17 73 /min [facility] 07:00:26 [facility] Respiratory rate 2022-09-17 16 /min 07:00:26 [facility] Oxygen saturation 2022-09-17 99 /min [facility] Arterial blood 07:00:26 [facility] by Pulse oximetry [place] Body temperature 2022-09-17 36.89 Bebe [facility] 05:07:00 [facility] Body height 2022-09-17 162.6 cm [facility] 05:07:00 [facility] Body weight 2022-09-17 108.863 kg [facility] 05:07:00 [facility] BMI 2022-09-17 41.20 kg/m2 [facility] 05:07:00 [facility] Systolic (mm Hg) 2022-05-30 [facility] rmann 13:00:00 Diastolic (mm Hg) 2022-05-30 [facility] ermann 13:00:00 Temperature Oral 2022-05-30 98.0 F [facility] rmann (F) 13:00:00 Heart Rate 2022-05-30 [facility] 13:00:00 Respitory Rate 2022-05-30 [facility] 13:00:00 Temperature Oral 2022-05-30 98.6 F [facility] rmann (F) 05:40:00 Heart Rate 2022-05-30 [facility] 05:40:00 Respitory Rate 2022-05-30 [facility] 05:40:00 Systolic (mm Hg) 2022-05-30 [facility] rmann 05:40:00 Diastolic (mm Hg) 2022-05-30 [facility] ermann 05:40:00 Systolic (mm Hg) 2022-05-29 [facility] rmann 21:17:00 Diastolic (mm Hg) 2022-05-29 [facility] ermann 21:17:00 Heart Rate 2022-05-29 [facility] 21:17:00 Respitory Rate 2022-05-29 [facility] 21:17:00 Temperature Oral 2022-05-29 98 F [facility] rmann (F) 21:17:00 Systolic (mm Hg) 2022-05-29 [facility] rmann 17:30:00 Diastolic (mm Hg) 2022-05-29 [facility] 17:30:00 Heart Rate 2022-05-29 [facility] n 17:30:00 Respitory Rate 2022-05-29 [facility] 17:30:00 Temperature Oral 2022-05-29 98.2 F [facility] Boby rmann (F) 14:00:00 Height 2022-05-27 162.56 cm [...] He rmann 19:15:00 Diastolic (mm Hg) 2022-05-25 [facility] 19:15:00 Systolic (mm Hg) 2022-05-25 [facility] 18:45:00 Diastolic (mm Hg) 2022-05-25 [facility] 18:45:00 Height 2022-05-25 162.56 cm [facility] n 17:51:00 BMI Calculated 2022-05-25 [facility] 17:51:00 Weight 2022-05-25 [facility] 17:51:00 Systolic (mm Hg) 2022-05-25 [facility] 17:51:00 Diastolic (mm Hg) 2022-05-25 [facility] 17:51:00 Heart Rate 2022-05-25 [facility] 17:51:00 Respitory Rate 2022-05-25 [facility] 17:51:00 Temperature Oral 2022-05-25 98.8 F [facility] He rmann (F) 17:51:00 Systolic (mm Hg) 2022-05-20 [facility] 00:35:00 Diastolic (mm Hg) 2022-05-20 [facility] 00:35:00 Systolic (mm Hg) 2022-05-20 [facility] 00:30:00 Diastolic (mm Hg) 2022-05-20 [facility] ermann 00:30:00 Systolic (mm Hg) 2022-05-20 [facility] rmann 00:25:00 Diastolic (mm Hg) 2022-05-20 [facility] ermann 00:25:00 Height 2022-05-19 162.56 cm [facility] Bartolome n 22:59:00 BMI Calculated 2022-05-19 [facility] 22:59:00 Weight 2022-05-19 [facility] 22:59:00 Heart Rate 2022-05-19 [facility] Bartolome n 22:59:00 Respitory Rate 2022-05-19 [facility] sina 22:59:00 Temperature Oral 2022-05-19 98.9 F [facility] rmann (F) 22:59:00 Systolic (mm Hg) 2022-05-06 [facility] rmann 21:30:00 Diastolic (mm Hg) 2022-05-06 [facility] ermann 21:30:00 Systolic (mm Hg) 2022-05-06 [facility] rmann 21:15:00 Diastolic (mm Hg) 2022-05-06 [facility] ermann 21:15:00 Systolic (mm Hg) 2022-05-06 [facility] rmann 21:00:00 Diastolic (mm Hg) 2022-05-06 [facility] ermann 21:00:00 Temperature Oral 2022-05-06 98.9 F [facility] rmann (F) 21:00:00 Respitory Rate 2022-05-06 [facility] sina 21:00:00 [facility] 2022-05-06 [facility] Calculated 2022-05-06 [facility] sina 20:36:00 Weight 2022-05-06 [facility] Bartolome n 20:36:00 Systolic (mm Hg) 2022-05-06 [facility] rmann 08:00:00 Diastolic (mm Hg) 2022-05-06 [facility] ermann 08:00:00 Systolic (mm Hg) 2022-05-06 [facility] rmann 07:30:00 Diastolic (mm Hg) 2022-05-06 [facility] ermann 07:30:00 Height 2022-05-06 [facility] 06[facility] Calculated 2022-05-06 [facility] [...] sina 00:42:00 Temperature Oral 2022-04-30 97.6 F [facility] He rmann (F) 00:42:00 Height 2021-10-28 162.56 cm [facility] 18:01:00 BMI Calculated 2021-10-28 [facility] 18:01:00 Weight 2021-10-28 [facility] 18:01:00 Systolic (mm Hg) 2021-10-28 [facility] 18:01:00 Diastolic (mm Hg) 2021-10-28 [facility] 18:01:00 Heart Rate 2021-10-28 [facility] 18:01:00 Respitory Rate 2021-10-28 [facility] 18:01:00 Temperature Oral 2021-10-28 98.8 F [facility] (F) 18:01:00 Systolic (mm Hg) 2021-05-18 [facility] 05:30:00 Diastolic (mm Hg) 2021-05-18 [facility] 05:30:00 Heart Rate 2021-05-18 [facility] 05:30:00 Respitory Rate 2021-05-18 [facility] 05:30:00 Temperature Oral 2021-05-18 98.7 F [facility] (F) 05:30:00 Height 2021-05-18 162.56 cm [facility] n 02:44:00 BMI Calculated 2021-05-18 [facility] 02:44:00 Weight 2021-05-18 [facility] 02:44:00 Systolic (mm Hg) 2021-05-18 [facility] 02:44:00 Diastolic (mm Hg) 2021-05-18 [facility] 02:44:00 Heart Rate 2021-05-18 [facility] 02:44:00 Respitory Rate 2021-05-18 [facility] 02:44:00 Temperature Oral 2021-05-18 98.6 F [facility] (F) 02:44:00 Temperature Oral 2021-05-13 99.7 F [facility] Boby rmann (F) 14:27:00 Heart Rate 2021-05-13 [...] sina 13:22:00 Temperature Oral 2021-05-13 100.4 F [facility] He rmann (F) 13:22:00 Systolic (mm Hg) 2021-02-02 [facility] 20:00:00 Diastolic (mm Hg) 2021-02-02 [facility] 20:00:00 Heart Rate 2021-02-02 [facility] 20:00:00 Respitory Rate 2021-02-02 [facility] 20:00:00 Temperature Oral 2021-02-02 98.4 F [facility] (F) 20:00:00 Systolic (mm Hg) 2021-02-02 [facility] 19:00:00 Diastolic (mm Hg) 2021-02-02 [facility] 19:00:00 Systolic (mm Hg) 2021-02-02 [facility] 18:00:00 Diastolic (mm Hg) 2021-02-02 [facility] 18:00:00 Height 2021-02-02 162.56 cm [facility] 17:11:00 BMI Calculated 2021-02-02 [facility] 17:11:00 Weight 2021-02-02 [facility] 17:11:00 Heart Rate 2021-02-02 [facility] 17:11:00 Respitory Rate 2021-02-02 [facility] 17:11:00 Temperature Oral 2021-02-02 98.5 F [facility] r[facility] (F) 17:11:00 Temperature Oral 2018-09-25 98.2 F [facility] (F) 01:25:00 Systolic (mm Hg) 2018-09-25 [facility] 01:25:00 Diastolic (mm Hg) 2018-09-25 [facility] 01:25:00 Respitory Rate 2018-09-25 [facility] 01:25:00 Systolic (mm Hg) 2018-09-25 [facility] 00:15:00 Diastolic (mm Hg) 2018-09-25 [facility] 00:15:00 Respitory Rate 2018-09-25 [facility] 00:15:00 Systolic (mm Hg) 2018-09-24 [facility] 22:55:00 Diastolic (mm Hg) 2018-09-24 [facility] 22:55:00 Respitory Rate 2018-09-24 [facility] 22:55:00 Heart Rate 2018-09-24 [facility] 21:19:00 Temperature Oral 2018-09-24 98 F [facility] rmann (F) 21:19:00 Weight 2018-09-24 [facility] [...] 10:21:00 Weight 2018-03-15 91.2 kg [facility] 10::00 Body Mass Index 2018-03-15 33.58 kg/m2 [facility] [...] [facility] 10:33:00 Tympanic Respitory Rate 2017-11-08 [facility] 20:15:00 Systolic (mm Hg) 2017-11-08 [facility] 20:15:00 Diastolic (mm Hg) 2017-11-08 [facility] [...] sina 09:04:00 Temperature Oral 2014-12-09 98.6 F Ashleigh Landis rmann (F) 09:04:00 Heart Rate 2014-12-09 [facility] 06:05:00 Temperature Oral 2014-12-09 98.4 F Ashleigh Landis rmann (F) 06:05:00 Respitory Rate 2014-12-09 [facility] 06:05:00 Diastolic (mm Hg) 2014-12-09 [facility] 06:05:00 Systolic (mm Hg) 2014-12-09 [facility] 06:05:00 Respitory Rate 2014-12-09 [facility] 02:57:00 Heart Rate 2014-12-09 Ashleigh Bartolome n 02:57:00 Diastolic (mm Hg) 2014-12-09 [facility] 02:57:00 Systolic (mm Hg) 2014-12-09 [facility] 02:57:00 Temperature Oral 2014-12-09 98.2 F Ashleigh Landis rmann (F) 02:57:00 Weight 2014-12-09 [facility] 00:17:00 Height 2014-12-09 162.56 cm [facility] 00:17:00 BMI Calculated 2014-12-09 [facility] 00:17:00 Procedures Procedure Date / Time Performing Clinician Source Performed CT ABDOMEN PELVIS W 2022-09-17 07:14:00 Vilma London [facility] CONTRAST [facility] POCT TEST 2022-09-17 06:12:00 Vilam London [facility] LIPASE 2022-09-17 05:32:00 Vilma London [facility] COMP. METABOLIC PANEL 2022-09-17 05:32:00 Vilma London [facility] ([id number]) [facility] CBC WITH DIFF 2022-09-17 05:32:00 Vilma London [facility] URINALYSIS 2022-09-17 05:25:00 Vilma London [facility] NOTICE OF PRIVACY 2022-09-17 04:55:44 Doctor Unassigned, [facility] PRACTICES [facility] CONSENT/REFUSAL FOR 2022-09-17 04:55:18 Doctor Unassigned [facility] DIAGNOSIS AND TREATMENT [facility] [[facility]] CLOSTRIDIUM 2018-07-31 00:00:00 [facility] DIFFICILE TOXIN A AND B, EIA [QL] CULTURE, STOOL 2018-07-31 00:00:00 [facility] (CAMPYLOBACTER, SALMONELLA/SHIGELLA) [[facility]] CRYPTOSPORIDIUM AG, 2018-07-31 00:00:00 [facility] DFA [[facility]] OVA AND PARASITES, 2018-07-31 00:00:00 [facility] STOOL CONC/PERM SMEAR, 3 SPEC US Abdomen complete with 2018-07-31 00:00:00 [facility] Pelvis [id number] [[facility]] CALPROTECTIN, STOOL 2018-03-15 00:00:00 [facility] [[facility]] OVA AND PARASITES, 2018-03-15 00:00:00 [facility] STOOL CONC/PERM SMEAR, 3 SPEC MRI Brain w/wo contrast 2018-03-15 00:00:00 [facility] [id number] [[facility]] CALPROTECTIN, STOOL 2017-12-12 00:00:00 [facility] [[facility]] OVA AND PARASITES, 2017-12-12 00:00:00 [facility] STOOL CONC/PERM SMEAR, 3 SPEC MRI Brain w/wo contrast 2017-11-14 00:00:00 [facility] [id number] Colonoscopy<sup>1</sup> 2017-11-08 06:00:00 Leonid rial Willie Esophagoscopy 2017-11-08 06:00:00 [facility] ECG-12 Lead 2017-10-24 00:00:00 [facility] [QLH] OVA AND PARASITES, 2017-10-24 00:00:00 [facility] STOOL CONC/PERM SMEAR, 3 SPEC [QLH] CALPROTECTIN, STOOL 2017-10-24 00:00:00 [facility] US Renal [id number] 2017-10-24 00:00:00 [place] [facility] Myringotomy [facility] Operation on eustachian [facility] tube Ear operations [facility] History of Ear pressure [facility] equalization tube insertion Encounters Start End Encounter Admission Attending Care Care Encounter Source Date/Time Date/Time Type Type Clinicians Facility Department ID 2022-05-13 Outpatient [facility] [id number] [place] 11:07:49 [id number] [facility] 2022-05-08 Outpatient [facility] [id number] [place] 01:04:29 [id number] [facility] 2022-05-04 Outpatient [facility] [id number] [place] 13:26:05 [id number] [facility] 2022-04-26 Outpatient [facility] [id number] [place] 12:08:22 [id number] [facility] 2022-04-06 Outpatient [facility] [id number] [place] 12:01:44 [id number] [facility] 2022-03-31 Outpatient [facility] [id number] [place] 12:13:14 [id number] [facility] 2022-03-09 Inpatient WANDA [facility] [address] [facility] H 10:19:37 STEF 2022-03-08 Outpatient [facility] [id number] [place] 23:25:02 [id number] [facility] 2022-01-26 Outpatient [facility] [id number] [place] 15:30:54 [facility] 2022-01-13 Outpatient [facility] [id number] [place] 14:05:26 [facility] 2022-09-17 2022-09-17 Emergency Yarima, [facility] [id number] [facility] 00:10:00 02:45:00 Vilma Currie [place] [id number] ity [facility] [id number] [facility] [id number] [address] 2022-09-17 2022-09-17 Emergency X YARIMA, [facility] ERT [id number] Univers 00:10:00 02:45:00 VILMA sanchez [facility] 2022-05-27 2022-05-30 Inpatient [facility]ly [facility] [id number] Memoria 18:53:17 19:56:[address] 2022-05-27 2022-05-30 Inpatient [facility] [id number] Memoria 18:53:17 19:56:[address] 2022-05-27 2022-05-30 Outpatient Alice [facility] [id number] 13:53:17 14:56:00 Suneet 14 2022-05-28 2022-05-28 Outpatient ALICE [facility] [id number] [place] 07:40:00 07:40:00 [facility] 2022-05-27 Outpatient Alice [facility] [id number] 13:53:17 13:53:17 Suneet 14 2022-05-27 2022-05-27 Inpatient U ALICE, [facility] [id number] [facility] 15:50:00 13:53:00 SUNEET 2022-05-25 2022-05-25 [facility] [id number] Memoria 17:29:46 19:15:[address] 2022-05-25 2022-05-25 Emergency [facility] [id number] Memoria 17:29:46 19:15:[address] 2022-05-25 2022-05-25 Outpatient Alice, [facility] [id number] 12:29:46 14:15:00 [facility] 13 2022-05-25 2022-05-25 Emergency E ALICE [facility] [id number] [facility] 12:29:00 14:15:00 SUNEE 2022-05-19 2022-05-20 [facility] [id number] Memoria 22:55:10 00:52:[address] 2022-05-19 2022-05-20 [facility] [id number] Memoria 22:55:10 00:52:[address] 2022-05-19 2022-05-19 Outpatient Leonor, [facility] [id number] 17:55:10 19:52:00 [facility] 2022-05-19 2022-05-19 Emergency E LEONOR, [facility] [id number] [facility] 17:55:00 19:52:00 [facility] 2022-05-06 2022-05-06 [facility] [id number] Memoria 20:34:25 21:48:00 r Ke[place] [address] [place] [address] 2022-05-06 2022-05-06 [facility] [id number] Memoria 20:34:25 21:48:00 r [place] [address] [place] [address] 2022-05-06 2022-05-06 Outpatient Marilu [facility] [id number] 15:34:25 16:48:00 Arvin Jacobson 2022-05-06 2022-05-06 Emergency E MARILU [facility] [id number] [facility] 15:34:00 16:48:00 GIUSEPPE VICENTE 2022-05-06 2022-05-06 [facility] [id number] Memoria 06:43:21 08:30:00 r Willie [address] [place] [address] 2022-05-06 2022-05-06 Emergency nullFlavo [facility] [id number] Memoria 06:43:21 08:30:[address] 2022-05-06 2022-05-06 Outpatient Travis, [facility] [id number] 01:43:21 03:30:00 Deandre Arvind 10 2022-05-06 2022-05-06 Emergency E ROBLES, [facility] [address] [facility] 01:43:00 03:30:00 DEANDRE 2022-04-30 2022-04-30 [facility] [id number] Memoria 00:17:00 01:39:[address] 2022-04-30 2022-04-30 [facility] [id number] Memoria 00:17:00 01:39:[address] 2022-04-29 2022-04-29 Outpatient Alice [facility] [id number] 19:17:00 20:39:00 Suneet 09 2022-04-29 2022-04-29 Emergency E ALICE, [facility] [id number] [facility] 19:17:00 20:39:00 SUNEET 2021-10-28 2021-10-28 [facility] [id number] Memoria 17:39:53 22:10:00 r Willie 08 l [facility] 2021-10-28 2021-10-28 Emergency [facility] [id number] Memoria 17:39:53 22:10:00 r Ke[place] 08 l [facility] 2021-10-28 2021-10-28 Outpatient Fadowole, [facility]PL [facility]PL [id number] 11:39:53 16:10:00 Telma 08 [place] 2021-10-28 2021-10-28 Emergency E FADOWOLE, MHBL MHBL [id number] MHBL 11:39:00 16:10:00 TELMA 2021-05-18 2021-05-18 Emergency [facility]Flavo [facility] [id number] Memoria 02:39:45 05:35:00 r [facility] 07 l ([facility]) [place] 2021-05-18 2021-05-18 Emergency [facility]Flavo [facility] [id number] Memoria 02:39:45 05:35:00 r [facility]- 07 l ([facility]) [place] 2021-05-17 2021-05-18 Outpatient Vishnyakova MHSE MHSE [id number] 21:39:45 00:35:00 , [place] 07 2021-05-17 2021-05-18 Emergency E VISHNYAEMA SE MHSE [id number] 21:39:00 00:35:00 [facility] 2021-05-13 2021-05-13 Emergency nullFlavo [facility] [id number] Memoria 13:18:22 14:20:00 r [facility]- 06 l ([facility]) [place] 2021-05-13 2021-05-13 Emergency nullFlavo [facility] [id number] Memoria 13:18:22 14:20:00 [facility] 06 l ([facility]) [place] 2021-05-13 2021-05-13 Outpatient [place] MHSE [id number] 08:18:22 09:20:00 Q 06 2021-05-13 2021-05-13 Emergency E [place] MHSE [id number] 08:18:00 09:20:00 [facility] 2021-02-02 2021-02-02 Emergency nullFlavo SE [place] [facility] [id number] Memoria 17:07:58 20:37:00 [facility] 05 ([facility]) [place] 2021-02-02 2021-02-02 Emergency nullFlavo SE [place] [facility] [id number] Memoria 17:07:58 20:37:00 [facility] 05 ([facility]) [place] 2021-02-02 2021-02-02 Outpatient Juan Vizcaino MHSE MHSE [id number] 12:07:58 15:37:00 Ana Cristina 05 2021-02-02 2021-02-02 Outpatient Juan Vizcaino MHSE MHSE [id number] 12:07:58 15:37:00 Ana Cristina 05 2021-02-02 2021-02-02 Emergency E JUAN VIZCAINO MHSE MHSE [id number] 12:07:00 15:37:00 [facility] 2018-09-24 2018-09-25 Emergency [facility] [id number] Memoria 21:16:00 01:35:[address] 2018-09-24 2018-09-25 Emergency [facility] [id number] Memoria 21:16:00 01:35:[address] 2018-09-24 2018-09-24 Outpatient Herminia [facility] [id number] 15:16:00 19:35:00 [place] 2018-08-03 2018-08-04 Outpt Diag nullFlavo [facility] [id number] Memoria 16:12:00 04:59:00 Services r Outpatient 01 l Imaging [facility] 2018-08-03 2018-08-04 Outpt Diag nullFlavo [facility] [id number] Memoria 16:12:00 04:59:00 Services r Outpatient 01 l Imaging [facility] 2018-08-03 2018-08-03 Outpatient Van [id number]. [id number]. [id number] 11:12:00 23:59:00 Asim Hernández.[id number]. [id number] 01 Wanda 3.615.24 5.24 Stacy 2018-07-31 2018-07-31 Appointmen BLAIR BECERRA [facility] Pedi [id number] [place] 01:00:00 01:00:00 t; MD MARIAM Gastroenter P hyrobert PINTO MD ology ans 2018-06-28 2018-06-28 Appointmen [facility] [id number] [place] 13:20:00 13:20:00 t; AUGUSTIN BLAKE M.D. Physici JOYCE, ans M.D. 2018-05-15 2018-05-15 Appointmen [facility] [id number] [place] 09:40:00 09:40:00 t; JONATAN HERNÁNDEZ Physi WANDA Flores ans MELISSA, M.D. M.D. 2018-03-15 2018-03-15 Appointmen [facility] Pedi [id number] [place] 09:40:00 09:40:00 t; Alirio MATIAS P WANDA Mann ology ans MELISSA, M.D. M.D. 2018-02-28 2018-02-28 Appointmen SAVANNA, [facility] [id number] UT 10:30:00 10:30:00 t; SHERRY GUNN, Jewel Escobar M.D. 2017-12-19 2017-12-19 Appointmen PEDIATRIC, [facility] Pedi [id number] [place] 10:30:00 10:30:00 t; FELLOW Nephrology Phy sici PEDIATRIC, & ans FELLOW Hypertensio n 2017-12-12 2017-12-12 Appointmen [facility] Pedi [id number] [place] 09:40:00 09:40:00 t; Alirio MATIAS P hyWANDA Bryant ology ans MELISSA, M.D. M.D. 2017-11-08 2017-11-09 Day nullFlavo [facility] [id number] Memoria 14:47:00 05:59:00 Surgery r [place] [facility] 2017-11-08 2017-11-09 Day nullFlavo [facility] [id number] Memoria 14:47:00 05:59:00 Surgery r Willie [facility] 2017-11-08 2017-11-08 Outpatient Jonatan [facility] [id number] 08:47:00 23:59:00 Edgar, Wanda Kumar 2017-10-27 2017-10-28 Outpt Diag nullFlavo [facility] [id number] Memoria 19:03:00 05:59:00 Services r Outpatient [address] [facility] 2017-10-27 2017-10-28 Outpt Diag nullFlavo [facility] [id number] Memoria 19:03:00 05:59:00 Services r Outpatient [address] [facility] 2017-10-27 2017-10-27 Outpatient Jonatan MHOIP MHOIP [id number] 13:03:00 23:59:00 Edgar, Wanda Kumar 2017-10-24 2017-10-24 Appointmen JONATAN TOMAS [id number] [place] 10:00:00 10:00:00 t; JONATAN HERNÁNDEZ, Vasquez WANDA HERNÁNDEZ, tonio AGUIRRE M.D. M.D. 2017-10-12 2017-10-12 Emergency nullFlavo [facility] [id number] Memoria 14:56:00 19:39:00 r [place] [address] [facility] 2017-10-12 2017-10-12 Emergency nullFlavo [facility] [id number] Memoria 14:56:00 19:39:[address] [place] [address] [facility] 2017-10-12 2017-10-12 Outpatient AnnashantellFahad MHSE MHSE [id number] 08:56:00 13:39:00 U 00 2015-06-18 2015-06-18 EC nullFlavo [facility] [id number] Memoria 02:41:00 06:26:00 Emergency r Willie 03 l [facility] 2015-06-18 2015-06-18 EC nullFlavo [facility] [id number] Memoria 02:41:00 06:26:00 Emergency r [place] 03 l [facility] 2015-06-17 2015-06-18 Outpatient Latonya Bennett MHSE MHSE [id number] 21:41:00 01:26:00 Francisco 03 2015-01-29 2015-02-28 OP Therapy nullFlavo [facility] [id number] Memoria 13:01:00 04:59:00 Patients r [place] 00 l [facility] 2015-01-29 2015-02-28 OP Therapy nullFlavo [facility] [id number] Memoria 13:01:00 04:59:00 Patients r [place] 00 l [facility] 2015-01-29 2015-02-27 Outpatient [place] 2.16.840. 2.16.840. 1. [id number] 08:01:00 23:59:00 Mikel [id number]. [id number] 3.615.0.1 5.0.845 16 3817-04-09 2015-02-19 EC nullFlavo [facility] [id number] Memoria 01:09:00 02:53:00 Emergency r [place] 02 [facility] 2015-02-19 2015-02-19 EC nullFlavo [facility] [id number] Memoria 01:09:00 02:53:00 Emergency r [place] 02 [facility] 2015-02-18 2015-02-18 Outpatient Tannachip, 2.16.840. 2.16.840.1. [id number] 20:09:00 21:53:00 Freddie 1.886861. [id number] 02 Emre 3.615.0.1 5.0.486 47 1471-01-27 2014-12-09 EC nullFlavo [facility] [id number] Memoria 00:15:00 09:27:00 Emergency r [place] 26 [facility] 2014-12-09 2014-12-09 EC nullFlavo [facility] [id number] Memoria 00:15:00 09:27:00 Emergency r [place] 26 [facility] 2014-12-08 2014-12-09 Outpatient Lila, 2.16.840. 2.16.840.1. [id number] 18:15:00 03:27:00 Grace Villalta [id number]. [id number] 3.615.0.1 5.0.101 01 Results Test Description Test Time Test Comments Results Result Comments Source POCT TEST 2022-09-17 06:12:00 Test Item Value Reference Range Interpretation Comme nts POCT PREG (test code = 1605) negative On board controls acceptable with C Line (test code = 3574) present POCT PREG LOT # (test code = 3575) [id number] POCT PREG TEST DATE (test code = 3576) Lab Interpretation (test code = 23589-7) Normal [facility]. METABOLIC PANEL (54812)2022-09-17 05:52:30 Test Item Value Reference Range Interpretation Comments NA (test code = 138 mmol/L 135-145 8110035559) K (test code = 4.1 mmol/L 3.5-5.0 5463008400) CL (test code = 106 mmol/L 98-108 1094623096) CO2 TOTAL (test code = 23 mmol/L 23-31 0198915255) AGAP (test code = 2-16 5991932433) BUN (test code = 11 mg/dL 7-23 4877782152) GLUCOSE (test code = 93 mg/dL 70-110 7529669887) CREATININE (test code = 0.49 mg/dL 0.50-1.04 L 1092695418) TOTAL BILI (test code = 0.7 mg/dL 0.1-1.4 3931885872) CALCIUM (test code = 9.2 mg/dL 8.6-10.6 0702724015) T PROTEIN (test code = 7.1 g/dL 6.3-8.2 0695854219) ALBUMIN (test code = 4.2 g/dL 3.5-5.0 9205872945) ALK PHOS (test code = 75 U/L 34-122 8124467918) ALTv (test code = 18 U/L 5-35 1742-6) AST(SGOT) (test code = 28 U/L 13-40 4727121576) eGFR (test code = mL/min/1.73m2 1582753648) SID (test code = SID) Association of [...] tests). Lab Interpretation Abnormal (test code = 96742-3) [facility] 05:51:54 Test Item Value Reference Range Interpretation Comments LIPASE (test code = 7320811146) 78 U/L 0-220 Lab Interpretation (test code = Normal 37712-9) [facility] WITH [id number] 05:39:53 Test Item Value Reference Range Interpretation Comments WBC (test code = See_Comment [Automated 0414-2) message] The sy stem which generated this result transmitted reference range : 4.30 - 11.10 10*3/?L. The reference range was not used to interpret this result as normal/abnormal . RBC (test code = See_Comment [Automated 130-8) message] The sy stem which generated this [...] (test code = 38.5 fL 39.0-49.9 L 33521-5) RDW-CV (test code = 12.2 % 12.0-15.5 788-0) PLT (test code = See_Comment [Automated 777-3) message] The sy stem which generated this result transmitted reference range : 166 - 358 10*3/ ?L. The reference r malcolm was not used to interpret this result as normal/abnormal . MPV (test code = 10.8 fL 9.5-12.9 26998-5) NRBC/100 WBC (test See_Comment [Automat ed code = 7060553593) message] The system which generated this result transmitted reference range : 0.0 - 10.0 /100 WBCs. The refer ence range was not u sed to interpret th is result as normal/abnormal . NRBC x10^3 (test code See_Comment [Auto mated = 2172504806) message] The s ystem which generated this result transmitted reference range : 10*3/?L. The reference range was not used to interpret this result as normal/abnormal . GRAN MAT (NEUT) % 60.2 % (test code = 770-8) IMM GRAN % (test code 0.30 % = 8836045519) LYMPH % (test code = 31.0 % 736-9) MONO % (test code = 6.1 % 5905-5) EOS % (test code = 1.9 % 713-8) BASO % (test code = 0.5 % 706-2) GRAN MAT x10^3(ANC) 6.15 10*3/uL 1.88-7.09 (test code = 2445590661) IMM GRAN x10^3 (test 0.03 10*3/uL 0.00-0.06 code = 5278051091) LYMPH x10^3 (test code 3.16 10*3/uL 1.32-3.29 = 731-0) MONO x10^3 (test code 0.62 10*3/uL 0.33-0.92 = 742-7) EOS x10^3 (test code = 0.19 10*3/uL 0.03-0.39 711-2) BASO x10^3 (test code 0.05 10*3/uL 0.01-0.07 = 704-7) Lab Interpretation Abnormal (test code = 94379-1) [facility]2022-07-17 06:29:00 Test Item Value Reference Range Interpretation Comments Hgb (test code = Hgb) 10.6 12.0-16.0 [id number] 06:29:00 Test Item Value Reference Range Interpretation Comments Hct (test code = Hct) 30.8 36.0-48.0 [facility]UqaqbpnAUPLGTSJLT5519-89-96 06:29:00 Test Item Value Reference Range Interpretation Comments Hgb (test code = Hgb) 10.6 12.0-16.0 [facility]neyHhajlvoECABYLLRRC9178-48-47 06:29:00 Test Item Value Reference Range Interpretation Comments Hct (test code = Hct) 30.8 36.0-48.0 [place] 853542-07-17 06:29:00 Test Item Value Reference Range Interpretation Comments Hgb (test code = Hgb) 10.6 12.0-16.0 [id number] 06:29:00 Test Item Value Reference Range Interpretation Comments Hct (test code = Hct) 30.8 36.0-48.0 [facility]2022-07-16 02:21:00 Test Item Value Reference Range Interpretation Comments Glucose Lvl (test code = Glucose Lvl) 62 70-99 [place] 840112-07-16 02:21:00 Test Item Value Reference Range Interpretation Comments BUN (test code = BUN) 7 7-22 [place] 840112-07-16 02:21:00 Test Item Value Reference Range Interpretation Comments Creatinine Lvl (test code = Creatinine 0.50 0.50-1.40 Lvl) [facility]2022-07-16 02:21:00 Test Item Value Reference Range Interpretation Comments Sodium Lvl (test code = Sodium Lvl) 139 135-145 [place] 840112-07-16 02:21:00 Test Item Value Reference Range Interpretation Comments Potassium Lvl (test code = Potassium 3.5 3.5-5.1 Lvl) [place] 840112-07-16 02:21:00 Test Item Value Reference Range Interpretation Comments Chloride Lvl (test code = Chloride Lvl) 109 95-109 [place] 840112-07-16 02:21:00 Test Item Value Reference Range Interpretation Comments CO2 (test code = CO2) 21 24-32 [place] 840112-07-16 02:21:00 Test Item Value Reference Range Interpretation Comments Calcium Lvl (test code = Calcium Lvl) 9.6 8.5-10.5 [place] 840112-07-16 02:21:00 Test Item Value Reference Range Interpretation Comments Total Protein (test code = Total 7.2 6.4-8.4 Protein) [place] 840112-07-16 02:21:00 Test Item Value Reference Range Interpretation Comments Albumin Lvl (test code = Albumin Lvl) 2.9 3.5-5.0 [place] 840112-07-16 02:21:00 Test Item Value Reference Range Interpretation Comments ALT (test code = ALT) 20 See_Comment [Auto mated message] The system which ge nerated this result transmit perico reference range : <=65. The reference range was not used to interpr et this result as sincere l/abnormal. [facility] [id number] 02:21:00 Test Item Value Reference Range Interpretation Comments AST (test code = AST) 16 See_Comment [Auto mated message] The system which ge nerated this result transmit perico reference range : <=37. The reference range was not used to interpr et this result as sincere l/abnormal. [facility] [id number] 02:21:00 Test Item Value Reference Range Interpretation Comments Alk Phos (test code = Alk Phos) 180 39-136 [facility] [id number] 02:21:00 Test Item Value Reference Range Interpretation Comments Bili Total (test code = Bili Total) 0.5 0.2-1.3 [place] 40259-07-16 02:21:00 Test Item Value Reference Range Interpretation Comments AGAP (test code = AGAP) 12.5 10.0-20.0 [place] 840112-07-16 02:21:00 Test Item Value Reference Range Interpretation Comments B/C Ratio (test code = B/C Ratio) 14 1 6-25 [place] 840112-07-16 02:21:00 Test Item Value Reference Range Interpretation Comments Globulin (test code = Globulin) 4.3 2.7-4.2 [place] 840112-07-16 02:21:00 Test Item Value Reference Range Interpretation Comments A/G Ratio (test code = A/G Ratio) 0.7 1 0.7-1.6 [place] 840112-07-16 02:21:00 Test Item Value Reference Range Interpretation Comments eGFR (test code = eGFR) 136 [place] 441652-07-16 02:21:00 Test Item Value Reference Range Interpretation Comments U Creatinine (test code = U Creatinine) 39.60 [place] 72321-07-16 02:21:00 Test Item Value Reference Range Interpretation Comments U Protein (test code = U Protein) 11.1 [place] [address]321-07-16 02:21:00 Test Item Value Reference Range Interpretation Comments U Prot/Creat (test code = U 0.28 1 Prot/Creat) [place] 840112-07-16 02:21:00 Test Item Value Reference Range Interpretation Comments Glucose Lvl (test code = Glucose Lvl) 62 70-99 [place] 840112-07-16 02:21:00 Test Item Value Reference Range Interpretation Comments BUN (test code = BUN) 7 7-22 [place] 840112-07-16 02:21:00 Test Item Value Reference Range Interpretation Comments Creatinine Lvl (test code = Creatinine 0.50 0.50-1.40 Lvl) [place] 840112-07-16 02:21:00 Test Item Value Reference Range Interpretation Comments Sodium Lvl (test code = Sodium Lvl) 139 135-145 [place] 840112-07-16 02:21:00 Test Item Value Reference Range Interpretation Comments Potassium Lvl (test code = Potassium 3.5 3.5-5.1 Lvl) [place] 840112-07-16 02:21:00 Test Item Value Reference Range Interpretation Comments Chloride Lvl (test code = Chloride Lvl) 109 95-109 [facility] [id number] 02:21:00 Test Item Value Reference Range Interpretation Comments CO2 (test code = CO2) 21 24-32 [facility]upC[id number] 02:21:00 Test Item Value Reference Range Interpretation Comments Calcium Lvl (test code = Calcium Lvl) 9.6 8.5-10.5 [facility] [id number] 02:21:00 Test Item Value Reference Range Interpretation Comments Total Protein (test code = Total 7.2 6.4-8.4 Protein) [facility]GreenupCANN[facility] [id number] 02:21:00 Test Item Value Reference Range Interpretation Comments Albumin Lvl (test code = Albumin Lvl) 2.9 3.5-5.0 [facility] [id number] 02:21:00 Test Item Value Reference Range Interpretation Comments ALT (test code = ALT) 20 See_Comment [Auto mated message] The system which ge nerated this result transmit perico reference range : <=65. The reference range was not used to interpr et this result as sincere l/abnormal. [facility] [id number] 02:21:00 Test Item Value Reference Range Interpretation Comments AST (test code = AST) 16 See_Comment [Auto mated message] The system which ge nerated this result transmit perico reference range : <=37. The reference range was not used to interpr et this result as sincere l/abnormal. [facility] [employer] [id number] 02:21:00 Test Item Value Reference Range Interpretation Comments Alk Phos (test code = Alk Phos) 180 39-136 [facility] [id number] 02:21:00 Test Item Value Reference Range Interpretation Comments Bili Total (test code = Bili Total) 0.5 0.2-1.3 [facility] [id number] 02:21:00 Test Item Value Reference Range Interpretation Comments AGAP (test code = AGAP) 12.5 10.0-20.0 [facility] [id number] 02:21:00 Test Item Value Reference Range Interpretation Comments B/C Ratio (test code = B/C Ratio) 14 1 6-25 [place] [id number] 02:21:00 Test Item Value Reference Range Interpretation Comments Globulin (test code = Globulin) 4.3 2.7-4.2 [place] [id number] 02:21:00 Test Item Value Reference Range Interpretation Comments A/G Ratio (test code = A/G Ratio) 0.7 1 0.7-1.6 [place] [id number] 02:21:00 Test Item Value Reference Range Interpretation Comments eGFR (test code = eGFR) 136 [place] [id number] 02:21:00 Test Item Value Reference Range Interpretation Comments U Creatinine (test code = U Creatinine) 39.60 [place] [id number] 02:21:00 Test Item Value Reference Range Interpretation Comments U Protein (test code = U Protein) 11.1 [place] 441652-07-16 02:21:00 Test Item Value Reference Range Interpretation Comments U Prot/Creat (test code = U 0.28 1 Prot/Creat) [place] 840112-07-16 02:21:00 Test Item Value Reference Range Interpretation Comments Glucose Lvl (test code = Glucose Lvl) 62 70-99 [place] 840112-07-16 02:21:00 Test Item Value Reference Range Interpretation Comments BUN (test code = BUN) 7 7- [place] 840112-07-16 02:21:00 Test Item Value Reference Range Interpretation Comments Creatinine Lvl (test code = Creatinine 0.50 0.50-1.40 Lvl) [place] 840112-07-16 02:21:00 Test Item Value Reference Range Interpretation Comments Sodium Lvl (test code = Sodium Lvl) 139 135-145 [place] 840112-07-16 02:21:00 Test Item Value Reference Range Interpretation Comments Potassium Lvl (test code = Potassium 3.5 3.5-5.1 Lvl) [place] 840112-07-16 02:21:00 Test Item Value Reference Range Interpretation Comments Chloride Lvl (test code = Chloride Lvl) 109 95-109 [place] 840112-07-16 02:21:00 Test Item Value Reference Range Interpretation Comments CO2 (test code = CO2) 21 24-32 [place] 840112-07-16 02:21:00 Test Item Value Reference Range Interpretation Comments Calcium Lvl (test code = Calcium Lvl) 9.6 8.5-10.5 [facility] [id number] 02:21:00 Test Item Value Reference Range Interpretation Comments Total Protein (test code = Total 7.2 6.4-8.4 Protein) [facility] [id number] 02:21:00 Test Item Value Reference Range Interpretation Comments Albumin Lvl (test code = Albumin Lvl) 2.9 3.5-5.0 [facility] [id number] 02:21:00 Test Item Value Reference Range Interpretation Comments ALT (test code = ALT) 20 See_Comment [Auto mated message] The system which ge nerated this result transmit perico reference range : <=65. The reference range was not used to interpr et this result as sincere l/abnormal. [facility] [id number] 02:21:00 Test Item Value Reference Range Interpretation Comments AST (test code = AST) 16 See_Comment [Auto mated message] The system which ge nerated this result transmit perico reference range : <=37. The reference range was not used to interpr et this result as sincere l/abnormal. [facility] [employer] [id number] 02:21:00 Test Item Value Reference Range Interpretation Comments Alk Phos (test code = Alk Phos) 180 39-136 [facility] [employer] [id number] 02:21:00 Test Item Value Reference Range Interpretation Comments Bili Total (test code = Bili Total) 0.5 0.2-1.3 [facility] [employer] [id number] 02:21:00 Test Item Value Reference Range Interpretation Comments AGAP (test code = AGAP) 12.5 10.0-20.0 [facility] [employer] [id number] 02:21:00 Test Item Value Reference Range Interpretation Comments B/C Ratio (test code = B/C Ratio) 14 1 6-25 [facility] [employer] [id number] 02:21:00 Test Item Value Reference Range Interpretation Comments Globulin (test code = Globulin) 4.3 2.7-4.2 [facility] [employer] [id number] 02:21:00 Test Item Value Reference Range Interpretation Comments A/G Ratio (test code = A/G Ratio) 0.7 1 0.7-1.6 [facility]2022-07-16 02:21:00 Test Item Value Reference Range Interpretation Comments eGFR (test code = eGFR) 136 [facility]2022-07-16 02:21:00 Test Item Value Reference Range Interpretation Comments U Creatinine (test code = U Creatinine) 39.60 [place] 441652-07-16 02:21:00 Test Item Value Reference Range Interpretation Comments U Protein (test code = U Protein) 11.1 [place] 441652-07-16 02:21:00 Test Item Value Reference Range Interpretation Comments U Prot/Creat (test code = U 0.28 1 Prot/Creat) [facility]neyAjcasfwVGODTFQLVS0957-33-34 21:33:00 Test Item Value Reference Range Interpretation Comments Fibrinogen Lvl (test code = Fibrinogen 552 230-510 Lvl) [facility] McKinneyMmceucxGOKEGJEPUD9069-11-35 21:33:00 Test Item Value Reference Range Interpretation Comments Fibrinogen Lvl (test code = Fibrinogen 552 230-510 Lvl) [facility] McKinneyQrjmokrUISUPUAKHW6165-52-20 21:33:00 Test Item Value Reference Range Interpretation Comments Fibrinogen Lvl (test code = Fibrinogen 552 230-510 Lvl) [facility] McKinneyRtirtwtRFVBLTYSKZ7371-73-33 21:32:00 Test Item Value Reference Range Interpretation Comments PT (test code = PT) 12.6 s 12.0-14.7 [facility] McKinneyCszhysaQZINEQVVJQ0016-77-58 21:32:00 Test Item Value Reference Range Interpretation Comments INR (test code = INR) 0.95 1 0.85-1.17 [facility] McKinneyKboysheBDKYVGTUDQ4389-05-31 21:32:00 Test Item Value Reference Range Interpretation Comments PTT (test code = PTT) 27.2 s 22.9-35.8 [place] [address]-07-15 21:32:00 Test Item Value Reference Range Interpretation Comments PT (test code = PT) 12.6 s 12.0-14.7 [facility] McKinneyBknswgjVHLJYNUCCJ9266-02-00 21:32:00 Test Item Value Reference Range Interpretation Comments INR (test code = INR) 0.95 1 0.85-1.17 [place] [address]-07-15 21:32:00 Test Item Value Reference Range Interpretation Comments PTT (test code = PTT) 27.2 s 22.9-35.8 [facility] McKinneyAhhbjhjRPPQPVOFIK4707-92-49 21:32:00 Test Item Value Reference Range Interpretation Comments PT (test code = PT) 12.6 s 12.0-14.7 [facility] McKinneyVoaedieWAVSTYQXPI1672-11-83 21:32:00 Test Item Value Reference Range Interpretation Comments INR (test code = INR) 0.95 1 0.85-1.17 [facility] McKinneyNxysrduJSJNZPZDKD9139-71-23 21:32:00 Test Item Value Reference Range Interpretation Comments PTT (test code = PTT) 27.2 s 22.9-35.8 [facility] [id number] 21:31:00 Test Item Value Reference Range Interpretation Comments ABO/Rh (test code = ABO/Rh) A POS [facility] [id number] 21:31:00 Test Item Value Reference Range Interpretation Comments Antibody Scrn (test Negative (05/27/22 4:31 code = Antibody Scrn) PM) [facility] McKinneyBwlhdshHSIJOMIJTS0102-40-35 21:31:00 Test Item Value Reference Range Interpretation Comments WBC (test code = WBC) 13.4 3.7-10.4 [facility] McKinneyAhkttouOKKTUDXRDF5485-24-38 21:31:00 Test Item Value Reference Range Interpretation Comments RBC (test code = RBC) 4.09 4.20-5.40 [facility] McKinneyIlheoeaPEACIMZJZA4422-56-49 21:31:00 Test Item Value Reference Range Interpretation Comments Hgb (test code = Hgb) 12.2 12.0-16.0 [facility] McKinneyDttuhfbBQVBCYOQIY8230-87-25 21:31:00 Test Item Value Reference Range Interpretation Comments Hct (test code = Hct) 35.9 36.0-48.0 [facility] McKinneyLpfwnkmUNNPOIPSLX2539-57-71 21:31:00 Test Item Value Reference Range Interpretation Comments MCV (test code = MCV) 87.8 80.0-98.0 [facility] McKinneyJcotwvdUCHGHAMKRR1494-91-64 21:31:00 Test Item Value Reference Range Interpretation Comments MCH (test code = MCH) 29.9 pg 27.0-31.0 [facility] McKinneyVatozidMBIAUAHWWQ1841-67-12 21:31:00 Test Item Value Reference Range Interpretation Comments MCHC (test code = MCHC) 34.0 32.0-36.0 [facility] McKinneyDorgicpNTBHJQPWWQ3643-39-01 21:31:00 Test Item Value Reference Range Interpretation Comments RDW (test code = RDW) 13.7 11.5-14.5 [facility] McKinneyCwcjheqSXFEPWRPRX9795-40-32 21:31:00 Test Item Value Reference Range Interpretation Comments Platelet (test code = Platelet) 177 133-450 [facility] McKinneyWajwrjzANULOBLPJR6484-23-19 21:31:00 Test Item Value Reference Range Interpretation Comments MPV (test code = MPV) 10.1 7.4-10.4 [facility] McKinneyYqbnhvdJBMLHZARDU2995-07-29 21:31:00 Test Item Value Reference Range Interpretation Comments Segs (test code = Segs) 80.1 45.0-75.0 [facility] McKinneyYwtjxpiZVLYFBORUK5388-87-85 21:31:00 Test Item Value Reference Range Interpretation Comments Lymphocytes (test code = Lymphocytes) 13.8 20.0-40.0 [facility] McKinneyPbjhldtYHFKYOJRWE1565-44-80 21:31:00 Test Item Value Reference Range Interpretation Comments Monocytes (test code = Monocytes) 5.7 2.0-12.0 [facility] McKinneyVevchbjDAGKRGGSPQ9308-48-01 21:31:00 Test Item Value Reference Range Interpretation Comments Eosinophils (test code = 0.2 See_Comment [A utomated message] The Eosinophils) system which ge nerated this result tra nsmitted reference range : <=4.0. The reference r malcolm was not used to int erpret this result as normal/abnormal . [facility] McKinneyOtigfpkPQIQPLBWUR5144-18-24 21:31:00 Test Item Value Reference Range Interpretation Comments Basophils (test code = 0.2 See_Comment [Aut omated message] The Basophils) system which ge nerated this result tra nsmitted reference range : <=1.0. The reference r malcolm was not used to int erpret this result as normal/abnormal . [facility] McKinneyHnyyykvGMLGFPKGCW3493-26-12 21:31:00 Test Item Value Reference Range Interpretation Comments Neutrophils # (test code = Neutrophils 10.7 1.5-8.1 #) [facility] McKinneyTninwchLZAUWKLWVK8194-27-65 21:31:00 Test Item Value Reference Range Interpretation Comments Lymphocytes # (test code = Lymphocytes 1.8 1.0-5.5 #) [facility] HospitalIetidysACLLAQARER7110-01-09 21:31:00 Test Item Value Reference Range Interpretation Comments Monocytes # (test code 0.8 See_Comment [Aut omated message] The = Monocytes #) system which generated this result tra nsmitted reference range : <=0.8. The reference r malcolm was not used to int erpret this result as normal/abnormal . [facility] HospitalThmwsfpZTLJHZGHJX4109-95-80 21:31:00 Test Item Value Reference Range Interpretation Comments Hep Bs Ag (test code Negative *NA*(05/27/22 = Hep Bs Ag) 4:31 PM) [facility] HospitalEysgyjqFQJXISDHNX3174-51-61 21:31:00 Test Item Value Reference Range Interpretation Comments HIV Ag/Ab 4th Gen Negative *NA*(05/27/22 (test code = HIV 4:31 PM) Ag/Ab 4th Gen) [facility] HospitalFfaocvoWNUFTXGPZV4710-95-42 21:31:00 Test Item Value Reference Range Interpretation Comments Treponemal Ab (test code Non-Reactive = Treponemal Ab) *NA*(05/27/22 4:31 PM) [facility] [employer] [id number] 21:31:00 Test Item Value Reference Range Interpretation Comments ABO/Rh (test code = ABO/Rh) A POS [facility] [employer] [id number] 21:31:00 Test Item Value Reference Range Interpretation Comments Antibody Scrn (test Negative (05/27/22 4:31 code = Antibody Scrn) PM) [facility] HospitalNnmhzewILGTNUAAIL3058-74-26 21:31:00 Test Item Value Reference Range Interpretation Comments WBC (test code = WBC) 13.4 3.7-10.4 [facility] HospitalSfzpvycIMFVHZOIMB3852-24-63 21:31:00 Test Item Value Reference Range Interpretation Comments RBC (test code = RBC) 4.09 4.20-5.40 [facility] HospitalEcjveqaCIVRKVONKX7919-02-15 21:31:00 Test Item Value Reference Range Interpretation Comments Hgb (test code = Hgb) 12.2 12.0-16.0 [facility] HospitalMhhepgmDZREUAGIMD7480-21-17 21:31:00 Test Item Value Reference Range Interpretation Comments Hct (test code = Hct) 35.9 36.0-48.0 [place] [address]-07-15 21:31:00 Test Item Value Reference Range Interpretation Comments MCV (test code = MCV) 87.8 80.0-98.0 [place] [address]-07-15 21:31:00 Test Item Value Reference Range Interpretation Comments MCH (test code = MCH) 29.9 pg 27.0-31.0 [place] 853542-07-15 21:31:00 Test Item Value Reference Range Interpretation Comments MCHC (test code = MCHC) 34.0 32.0-36.0 [place] 853542-07-15 21:31:00 Test Item Value Reference Range Interpretation Comments RDW (test code = RDW) 13.7 11.5-14.5 [place] [address]-07-15 21:31:00 Test Item Value Reference Range Interpretation Comments Platelet (test code = Platelet) 177 133-450 [place] 853542-07-15 21:31:00 Test Item Value Reference Range Interpretation Comments MPV (test code = MPV) 10.1 7.4-10.4 [place] [address]-07-15 21:31:00 Test Item Value Reference Range Interpretation Comments Segs (test code = Segs) 80.1 45.0-75.0 [place] [address]-07-15 21:31:00 Test Item Value Reference Range Interpretation Comments Lymphocytes (test code = Lymphocytes) 13.8 20.0-40.0 [place] 853542-07-15 21:31:00 Test Item Value Reference Range Interpretation Comments Monocytes (test code = Monocytes) 5.7 2.0-12.0 [place] [address]-07-15 21:31:00 Test Item Value Reference Range Interpretation Comments Eosinophils (test code = 0.2 See_Comment [A utomated message] The Eosinophils) system which ge nerated this result tra nsmitted reference range : <=4.0. The reference r malcolm was not used to int erpret this result as normal/abnormal . [place] [address]-07-15 21:31:00 Test Item Value Reference Range Interpretation Comments Basophils (test code = 0.2 See_Comment [Aut omated message] The Basophils) system which ge nerated this result tra nsmitted reference range : <=1.0. The reference r malcolm was not used to int erpret this result as normal/abnormal . [facility] HospitalJgvbbgwDECHITORNH1874-11-40 21:31:00 Test Item Value Reference Range Interpretation Comments Neutrophils # (test code = Neutrophils 10.7 1.5-8.1 #) [facility]XtdmmkeCQNZHNKGAN4686-95-03 21:31:00 Test Item Value Reference Range Interpretation Comments Lymphocytes # (test code = Lymphocytes 1.8 1.0-5.5 #) [facility] CenterImrpfggWFNOSRMXFC1393-21-21 21:31:00 Test Item Value Reference Range Interpretation Comments Monocytes # (test code 0.8 See_Comment [Aut omated message] The = Monocytes #) system which generated this result tra nsmitted reference range : <=0.8. The reference r malcolm was not used to int erpret this result as normal/abnormal . [facility] CenterCpwinhpCNHHRSPAFJ4176-59-70 21:31:00 Test Item Value Reference Range Interpretation Comments Hep Bs Ag (test code Negative *NA*(05/27/22 = Hep Bs Ag) 4:31 PM) [facility] CenterYewsureZKTMMNUXVJ6744-35-70 21:31:00 Test Item Value Reference Range Interpretation Comments HIV Ag/Ab 4th Gen Negative *NA*(05/27/22 (test code = HIV 4:31 PM) Ag/Ab 4th Gen) [facility] CenterJjkcvsnZXBQCEDQDD8957-02-67 21:31:00 Test Item Value Reference Range Interpretation Comments Treponemal Ab (test code Non-Reactive = Treponemal Ab) *NA*(05/27/22 4:31 PM) [facility] GQYKKVX7672-78-01 21:31:00 Test Item Value Reference Range Interpretation Comments ABO/Rh (test code = ABO/Rh) A POS [facility] [employer] [id number] 21:31:00 Test Item Value Reference Range Interpretation Comments Antibody Scrn (test Negative (05/27/22 4:31 code = Antibody Scrn) PM) [facility] CenterUmagclzKQWRSTBUWD5708-00-56 21:31:00 Test Item Value Reference Range Interpretation Comments WBC (test code = WBC) 13.4 3.7-10.4 [facility] HospitalCvibqzzETCHSBWDTC1171-29-68 21:31:00 Test Item Value Reference Range Interpretation Comments RBC (test code = RBC) 4.09 4.20-5.40 [facility] McKinneyPvozgaxCXBPWSWPBB2706-13-93 21:31:00 Test Item Value Reference Range Interpretation Comments Hgb (test code = Hgb) 12.2 12.0-16.0 [place] 853542-07-15 21:31:00 Test Item Value Reference Range Interpretation Comments Hct (test code = Hct) 35.9 36.0-48.0 [facility] McKinneyOtajidmPPVNXNLZFY2207-73-02 21:31:00 Test Item Value Reference Range Interpretation Comments MCV (test code = MCV) 87.8 80.0-98.0 [place] 853542-07-15 21:31:00 Test Item Value Reference Range Interpretation Comments MCH (test code = MCH) 29.9 pg 27.0-31.0 [facility] McKinneyKijeyiuMFOSGTDHDR9858-42-63 21:31:00 Test Item Value Reference Range Interpretation Comments MCHC (test code = MCHC) 34.0 32.0-36.0 [facility] McKinneyZgvzxvgICCXQLOBTO0605-75-42 21:31:00 Test Item Value Reference Range Interpretation Comments RDW (test code = RDW) 13.7 11.5-14.5 [place] 853542-07-15 21:31:00 Test Item Value Reference Range Interpretation Comments Platelet (test code = Platelet) 177 133-450 [facility] McKinneyItwtnhiJUWDZHODRF2357-61-95 21:31:00 Test Item Value Reference Range Interpretation Comments MPV (test code = MPV) 10.1 7.4-10.4 [place] 853542-07-15 21:31:00 Test Item Value Reference Range Interpretation Comments Segs (test code = Segs) 80.1 45.0-75.0 [place] 853542-07-15 21:31:00 Test Item Value Reference Range Interpretation Comments Lymphocytes (test code = Lymphocytes) 13.8 20.0-40.0 [place] [address]-07-15 21:31:00 Test Item Value Reference Range Interpretation Comments Monocytes (test code = Monocytes) 5.7 2.0-12.0 [place] 853542-07-15 21:31:00 Test Item Value Reference Range Interpretation Comments Eosinophils (test code = 0.2 See_Comment [A utomated message] The Eosinophils) system which ge nerated this result tra nsmitted reference range : <=4.0. The reference r malcolm was not used to int erpret this result as normal/abnormal . [place] 853542-07-15 21:31:00 Test Item Value Reference Range Interpretation Comments Basophils (test code = 0.2 See_Comment [Aut omated message] The Basophils) system which ge nerated this result tra nsmitted reference range : <=1.0. The reference r malcolm was not used to int erpret this result as normal/abnormal . [facility] McKinneyFslsaeyAEENQWOQRZ0932-93-68 21:31:00 Test Item Value Reference Range Interpretation Comments Neutrophils # (test code = Neutrophils 10.7 1.5-8.1 #) [facility] McKinneySosyngiRBJOYDIZFX0789-47-80 21:31:00 Test Item Value Reference Range Interpretation Comments Lymphocytes # (test code = Lymphocytes 1.8 1.0-5.5 #) [facility] McKinneyGypxqgvSYVTNMVBFA1873-20-27 21:31:00 Test Item Value Reference Range Interpretation Comments Monocytes # (test code 0.8 See_Comment [Aut omated message] The = Monocytes #) system which generated this result tra nsmitted reference range : <=0.8. The reference r malcolm was not used to int erpret this result as normal/abnormal . [facility]DccwptrWCIRZZKZQK3639-79-04 21:31:00 Test Item Value Reference Range Interpretation Comments Hep Bs Ag (test code Negative *NA*(05/27/22 = Hep Bs Ag) 4:31 PM) [facility] SystemLtxyxxiDQFIOVJTJR3854-27-50 21:31:00 Test Item Value Reference Range Interpretation Comments HIV Ag/Ab 4th Gen Negative *NA*(05/27/22 (test code = HIV 4:31 PM) Ag/Ab 4th Gen) [facility] SystemSzsvhwhLNAZZRAQNG7730-82-47 21:31:00 Test Item Value Reference Range Interpretation Comments Treponemal Ab (test code Non-Reactive = Treponemal Ab) *NA*(05/27/22 4:31 PM) [place] [address]-07-15 19:14:00 Test Item Value Reference Range Interpretation Comments Coronavirus (COVID-19) Detected MILAGROS (test code = 2*ABN*(05/27/22 2:14 Coronavirus (COVID-19) PM) MILAGROS) [facility] SystemKjprgmfTAIGCEPWXG1708-23-79 19:14:00 Test Item Value Reference Range Interpretation Comments Coronavirus (COVID-19) Detected MILAGROS (test code = 2*ABN*(05/27/22 2:14 Coronavirus (COVID-19) PM) MILAGROS) [facility] SystemDahcqxtNHKNHTBRPD8672-52-34 19:14:00 Test Item Value Reference Range Interpretation Comments Coronavirus (COVID-19) Detected MILAGROS (test code = 2*ABN*(05/27/22 2:14 Coronavirus (COVID-19) PM) MILAGROS) [facility] AND [id number] 01:25:00 Test Item Value Reference Range Interpretation Comments UA Color (test code = Yellow *NA*(04/29/22 UA Color) 8:25 PM) [facility] AND [id number] 01:25:00 Test Item Value Reference Range Interpretation Comments UA Turbidity (test code Slight *ABN*(04/29/22 = UA Turbidity) 8:25 PM) [facility] AND [id number] 01:25:00 Test Item Value Reference Range Interpretation Comments UA Spec Grav (test code = UA Spec 1.018 1 Grav) [facility] AND [id number] 01:25:00 Test Item Value Reference Range Interpretation Comments UA pH (test code = UA pH) 6.0 1 5.0-8.0 [facility] AND [id number] 01:25:00 Test Item Value Reference Range Interpretation Comments UA Protein (test code = UA Negative mg/dL Protein) [facility] AND [id number] 01:25:00 Test Item Value Reference Range Interpretation Comments UA Glucose (test code = UA Negative mg/dL Glucose) [facility] AND [id number] 01:25:00 Test Item Value Reference Range Interpretation Comments UA Ketones (test code = UA Negative mg/dL Ketones) [facility] AND [id number] 01:25:00 Test Item Value Reference Range Interpretation Comments UA Bili (test code = Negative *NA*(04/29/22 UA Bili) 8:25 PM) [facility] AND [id number] 01:25:00 Test Item Value Reference Range Interpretation Comments UA Blood (test code = Negative (04/29/22 8:25 [facility] Blood) PM) [facility] [id number] 01:25:00 Test Item Value Reference Range Interpretation Comments UA Urobilinogen (test code = UA no gt 0.1-1.0 Urobilinogen) [facility] [id number] 01:25:00 Test Item Value Reference Range Interpretation Comments UA Nitrite (test code Negative (04/29/22 8:25 = UA Nitrite) PM) [facility] [id number] 01:25:00 Test Item Value Reference Range Interpretation Comments UA Leuk Est (test code Small *ABN*(04/29/22 = UA Leuk Est) 8:25 PM) [facility] [id number] 01:25:00 Test Item Value Reference Range Interpretation Comments UA Sq Epi (test code = UA Sq Epi) Few /LPF [facility] [id number] 01:25:00 Test Item Value Reference Range Interpretation Comments UA WBC (test code = 6 See_Comment [Automa perico message] The UA WBC) system which ge nerated this result transmit perico reference range : <=5. The reference range was not used to interpr et this result as sincere l/abnormal. [facility] [id number] 01:25:00 Test Item Value Reference Range Interpretation Comments UA RBC (test code = no gt See_Comment [Automa perico message] The UA RBC) system which ge nerated this result transmit perico reference range : <=2. The reference range was not used to interpr et this result as sincere l/abnormal. [facility] [id number] 01:25:00 Test Item Value Reference Range Interpretation Comments UA Bacteria (test code = UA Occasional /HPF Bacteria) [facility] [id number] 01:25:00 Test Item Value Reference Range Interpretation Comments UA Mucus (test code = UA Mucus) Few /LPF [facility] [id number] 01:25:00 Test Item Value Reference Range Interpretation Comments UA Color (test code = Yellow *NA*(04/29/22 UA Color) 8:25 PM) [facility] [id number] 01:25:00 Test Item Value Reference Range Interpretation Comments UA Turbidity (test code Slight *ABN*(04/29/22 = UA Turbidity) 8:25 PM) [facility] AND [id number] 01:25:00 Test Item Value Reference Range Interpretation Comments UA Spec Grav (test code = UA Spec 1.018 1 Grav) [facility] AND [id number] 01:25:00 Test Item Value Reference Range Interpretation Comments UA pH (test code = UA pH) 6.0 1 5.0-8.0 [facility] AND [id number] 01:25:00 Test Item Value Reference Range Interpretation Comments UA Protein (test code = UA Negative mg/dL Protein) [facility] AND [id number] 01:25:00 Test Item Value Reference Range Interpretation Comments UA Glucose (test code = UA Negative mg/dL Glucose) [facility] AND [id number] 01:25:00 Test Item Value Reference Range Interpretation Comments UA Ketones (test code = UA Negative mg/dL Ketones) [facility] AND [id number] 01:25:00 Test Item Value Reference Range Interpretation Comments UA Bili (test code = Negative *NA*(04/29/22 UA Bili) 8:25 PM) [facility] AND [id number] 01:25:00 Test Item Value Reference Range Interpretation Comments UA Blood (test code = Negative (04/29/22 8:25 UA Blood) PM) [facility] AND [id number] 01:25:00 Test Item Value Reference Range Interpretation Comments UA Urobilinogen (test code = UA no gt 0.1-1.0 Urobilinogen) [facility] AND [id number] 01:25:00 Test Item Value Reference Range Interpretation Comments UA Nitrite (test code Negative (04/29/22 8:25 = UA Nitrite) PM) [facility] AND [id number] 01:25:00 Test Item Value Reference Range Interpretation Comments UA Leuk Est (test code Small *ABN*(04/29/22 = UA Leuk Est) 8:25 PM) [facility] AND [id number] 01:25:00 Test Item Value Reference Range Interpretation Comments UA Sq Epi (test code = UA Sq Epi) [facility] [id number] 01:25:00 Test Item Value Reference Range Interpretation Comments UA WBC (test code = 6 See_Comment [Automa perico message] The UA WBC) system which ge nerated this result transmit perico reference range : <=5. The reference range was not used to interpr et this result as sincere l/abnormal. [facility] [id number] 01:25:00 Test Item Value Reference Range Interpretation Comments UA RBC (test code = no gt See_Comment [Automa perico message] The UA RBC) system which ge nerated this result transmit perico reference range : <=2. The reference range was not used to interpr et this result as sincere l/abnormal. [facility] AND [id number] 01:25:00 Test Item Value Reference Range Interpretation Comments UA Bacteria (test code = UA Occasional /HPF Bacteria) [facility] AND [id number] 01:25:00 Test Item Value Reference Range Interpretation Comments UA Mucus (test code = UA Mucus) Few /LPF [facility] [id number] 01:25:00 Test Item Value Reference Range Interpretation Comments UA Color (test code = Yellow *NA*(04/29/22 UA Color) 8:25 PM) [facility] AND [id number] 01:25:00 Test Item Value Reference Range Interpretation Comments UA Turbidity (test code Slight *ABN*(04/29/22 = UA Turbidity) 8:25 PM) [facility] AND [id number] 01:25:00 Test Item Value Reference Range Interpretation Comments UA Spec Grav (test code = UA Spec 1.018 1 Grav) [facility] AND [id number] 01:25:00 Test Item Value Reference Range Interpretation Comments UA pH (test code = UA pH) 6.0 1 5.0-8.0 [facility] AND [id number] 01:25:00 Test Item Value Reference Range Interpretation Comments UA Protein (test code = UA Negative mg/dL Protein) [facility] AND [id number] 01:25:00 Test Item Value Reference Range Interpretation Comments UA Glucose (test code = UA Negative mg/dL Glucose) [facility] [id number] 01:25:00 Test Item Value Reference Range Interpretation Comments UA Ketones (test code = UA Negative mg/dL Ketones) [facility] [id number] 01:25:00 Test Item Value Reference Range Interpretation Comments UA Bili (test code = Negative *NA*(04/29/22 UA Bili) 8:25 PM) [facility] [id number] 01:25:00 Test Item Value Reference Range Interpretation Comments UA Blood (test code = Negative (04/29/22 8:25 UA Blood) PM) [facility] [id number] 01:25:00 Test Item Value Reference Range Interpretation Comments UA Urobilinogen (test code = UA no gt 0.1-1.0 Urobilinogen) [facility] AND [id number] 01:25:00 Test Item Value Reference Range Interpretation Comments UA Nitrite (test code Negative (04/29/22 8:25 = UA Nitrite) PM) [facility] AND [id number] 01:25:00 Test Item Value Reference Range Interpretation Comments UA Leuk Est (test code Small *ABN*(04/29/22 = UA Leuk Est) 8:25 PM) [facility] AND [id number] 01:25:00 Test Item Value Reference Range Interpretation Comments UA Sq Epi (test code = UA Sq Epi) Few /LPF [facility] AND [id number] 01:25:00 Test Item Value Reference Range Interpretation Comments UA WBC (test code = 6 See_Comment [Automa perico message] The UA WBC) system which ge nerated this result transmit perico reference range : <=5. The reference range was not used to interpr et this result as sincere l/abnormal. [facility] [id number] 01:25:00 Test Item Value Reference Range Interpretation Comments UA RBC (test code = no gt See_Comment [Automa perico message] The UA RBC) system which ge nerated this result transmit perico reference range : <=2. The reference range was not used to interpr et this result as sincere l/abnormal. [facility] [id number] 01:25:00 Test Item Value Reference Range Interpretation Comments UA Bacteria (test code = UA Occasional /HPF Bacteria) [facility] [id number] 01:25:00 Test Item Value Reference Range Interpretation Comments UA Mucus (test code = UA Mucus) Few /LPF [facility]2021-12-16 19:34:00 Test Item Value Reference Range Interpretation Comments Glucose Lvl (test code = Glucose Lvl) 85 70-99 [place] 840111-12-16 19:34:00 Test Item Value Reference Range Interpretation Comments BUN (test code = BUN) 5 7-22 [place] 840111-12-16 19:34:00 Test Item Value Reference Range Interpretation Comments Creatinine Lvl (test code = Creatinine 0.52 0.50-1.40 Lvl) [facility]2021-12-16 19:34:00 Test Item Value Reference Range Interpretation Comments Sodium Lvl (test code = Sodium Lvl) 134 135-145 [place] 840111-12-16 19:34:00 Test Item Value Reference Range Interpretation Comments Potassium Lvl (test code = Potassium 3.5 3.5-5.1 Lvl) [facility]2021-12-16 19:34:00 Test Item Value Reference Range Interpretation Comments Chloride Lvl (test code = Chloride Lvl) 103 95-109 [place] 840111-12-16 19:34:00 Test Item Value Reference Range Interpretation Comments CO2 (test code = CO2) 25 24-32 [place] 840111-12-16 19:34:00 Test Item Value Reference Range Interpretation Comments Calcium Lvl (test code = Calcium Lvl) 9.1 8.5-10.5 [place] 840111-12-16 19:34:00 Test Item Value Reference Range Interpretation Comments AGAP (test code = AGAP) 9.5 10.0-20.0 [place] 840111-12-16 19:34:00 Test Item Value Reference Range Interpretation Comments eGFR (test code = eGFR) 137 [id number] 19:34:00 Test Item Value Reference Range Interpretation Comments WBC (test code = WBC) 11.4 3.7-10.4 [facility] M[id number] 19:34:00 Test Item Value Reference Range Interpretation Comments RBC (test code = RBC) 4.46 4.20-5.40 [place] 853541-12-16 19:34:00 Test Item Value Reference Range Interpretation Comments Hgb (test code = Hgb) 13.3 12.0-16.0 [place] 853541-12-16 19:34:00 Test Item Value Reference Range Interpretation Comments Hct (test code = Hct) 39.2 36.0-48.0 [id number] 19:34:00 Test Item Value Reference Range Interpretation Comments MCV (test code = MCV) 87.9 80.0-98.0 [place] 853541-12-16 19:34:00 Test Item Value Reference Range Interpretation Comments MCH (test code = MCH) 29.8 pg 27.0-31.0 [facility] [id number] 19:34:00 Test Item Value Reference Range Interpretation Comments MCHC (test code = MCHC) 33.9 32.0-36.0 [facility] M[id number] 19:34:00 Test Item Value Reference Range Interpretation Comments RDW (test code = RDW) 12.6 11.5-14.5 [facility] McKinneyHdlhnvyUZNTWTKBRC8975-32-17 19:34:00 Test Item Value Reference Range Interpretation Comments Platelet (test code = Platelet) 232 133-450 [facility] McK[id number] 19:34:00 Test Item Value Reference Range Interpretation Comments MPV (test code = MPV) 9.1 7.4-10.4 [facility] [id number] 19:34:00 Test Item Value Reference Range Interpretation Comments Segs (test code = Segs) 73.6 45.0-75.0 [facility] McKinneyIpgwsibSMNPHITXQT8727-37-78 19:34:00 Test Item Value Reference Range Interpretation Comments Lymphocytes (test code = Lymphocytes) 19.6 20.0-40.0 [facility] McKinneyUkevebxVAXYKLEGYX8994-96-13 19:34:00 Test Item Value Reference Range Interpretation Comments Monocytes (test code = Monocytes) 6.0 2.0-12.0 [facility] McKinn[id number] 19:34:00 Test Item Value Reference Range Interpretation Comments Eosinophils (test code = 0.4 See_Comment [A utomated message] The Eosinophils) system which ge nerated this result tra nsmitted reference range : <=4.0. The reference r malcolm was not used to int erpret this result as normal/abnormal . [facility] M[id number] 19:34:00 Test Item Value Reference Range Interpretation Comments Basophils (test code = 0.4 See_Comment [Aut omated message] The Basophils) system which ge nerated this result tra nsmitted reference range : <=1.0. The reference r malcolm was not used to int erpret this result as normal/abnormal . [facility] M[id number] 19:34:00 Test Item Value Reference Range Interpretation Comments Neutrophils # (test code = Neutrophils 8.4 1.5-8.1 #) [facility] McKinneyRdmacsyKSWXFEFUYE1635-35-82 19:34:00 Test Item Value Reference Range Interpretation Comments Lymphocytes # (test code = Lymphocytes 2.2 1.0-5.5 #) [facility] McKinneyQkghbdiKLLACJRLOK9349-61-24 19:34:00 Test Item Value Reference Range Interpretation Comments Monocytes # (test code 0.7 See_Comment [Aut omated message] The = Monocytes #) system which generated this result tra nsmitted reference range : <=0.8. The reference r malcolm was not used to int erpret this result as normal/abnormal . [facility] AND [id number] 19:34:00 Test Item Value Reference Range Interpretation Comments UA Color (test code = Jasmine *ABN*(10/28/21 UA Color) 1:34 PM) [facility] AND [id number] 19:34:00 Test Item Value Reference Range Interpretation Comments UA Turbidity (test code Marked *ABN*(10/28/21 = UA Turbidity) 1:34 PM) [facility] AND [id number] 19:34:00 Test Item Value Reference Range Interpretation Comments UA Spec Grav (test code = UA Spec 1.026 1 Grav) [facility] AND [id number] 19:34:00 Test Item Value Reference Range Interpretation Comments UA pH (test code = UA pH) 5.0 1 5.0-8.0 [facility] AND [id number] 19:34:00 Test Item Value Reference Range Interpretation Comments UA Protein (test code = UA Protein) 30 mg/dL [facility] AND [id number] 19:34:00 Test Item Value Reference Range Interpretation Comments UA Glucose (test code = UA Negative mg/dL Glucose) [facility] AND [id number] 19:34:00 Test Item Value Reference Range Interpretation Comments UA Ketones (test code = UA Ketones) 20 mg/dL [facility] AND [id number] 19:34:00 Test Item Value Reference Range Interpretation Comments UA Bili (test code = Negative *NA*(10/28/21 UA Bili) 1:34 PM) [facility] AND [id number] 19:34:00 Test Item Value Reference Range Interpretation Comments UA Blood (test code = Negative (10/28/21 1:34 UA Blood) PM) [facility] AND [id number] 19:34:00 Test Item Value Reference Range Interpretation Comments UA Urobilinogen (test code = UA 4.0 0.1-1.0 Urobilinogen) [facility] AND [id number] 19:34:00 Test Item Value Reference Range Interpretation Comments UA Nitrite (test code Negative (10/28/21 1:34 = UA Nitrite) PM) [facility] AND [id number] 19:34:00 Test Item Value Reference Range Interpretation Comments UA Leuk Est (test code Trace *ABN*(10/28/21 = UA Leuk Est) 1:34 PM) [facility] AND [id number] 19:34:00 Test Item Value Reference Range Interpretation Comments UA Sq Epi (test code = UA Sq Epi) Many /LPF [facility] AND [id number] 19:34:00 Test Item Value Reference Range Interpretation Comments UA WBC (test code = 6 See_Comment [Automa perico message] The UA WBC) system which ge nerated this result transmit perico reference range : <=5. The reference range was not used to interpr et this result as sincere l/abnormal. [facility] AND [id number] 19:34:00 Test Item Value Reference Range Interpretation Comments UA RBC (test code = 3 See_Comment [Automa perico message] The UA RBC) system which ge nerated this result transmit perico reference range : <=2. The reference range was not used to interpr et this result as sincere l/abnormal. [facility] AND [id number] 19:34:00 Test Item Value Reference Range Interpretation Comments UA Bacteria (test code = UA Occasional /HPF Bacteria) [facility] AND [id number] 19:34:00 Test Item Value Reference Range Interpretation Comments UA Mucus (test code = UA Mucus) Few /LPF [facility]2021-12-16 19:34:00 Test Item Value Reference Range Interpretation Comments Glucose Lvl (test code = Glucose Lvl) 85 70-99 [facility]2021-12-16 19:34:00 Test Item Value Reference Range Interpretation Comments BUN (test code = BUN) 5 7-22 [place] 840111-12-16 19:34:00 Test Item Value Reference Range Interpretation Comments Creatinine Lvl (test code = Creatinine 0.52 0.50-1.40 Lvl) [facility]2021-12-16 19:34:00 Test Item Value Reference Range Interpretation Comments Sodium Lvl (test code = Sodium Lvl) 134 135-145 [place] 840111-12-16 19:34:00 Test Item Value Reference Range Interpretation Comments Potassium Lvl (test code = Potassium 3.5 3.5-5.1 Lvl) [facility]2021-12-16 19:34:00 Test Item Value Reference Range Interpretation Comments Chloride Lvl (test code = Chloride Lvl) 103 95-109 [facility]2021-12-16 19:34:00 Test Item Value Reference Range Interpretation Comments CO2 (test code = CO2) 25 24-32 [place] 840111-12-16 19:34:00 Test Item Value Reference Range Interpretation Comments Calcium Lvl (test code = Calcium Lvl) 9.1 8.5-10.5 [facility]2021-12-16 19:34:00 Test Item Value Reference Range Interpretation Comments AGAP (test code = AGAP) 9.5 10.0-20.0 [facility]2021-12-16 19:34:00 Test Item Value Reference Range Interpretation Comments eGFR (test code = eGFR) 137 [id number] 19:34:00 Test Item Value Reference Range Interpretation Comments WBC (test code = WBC) 11.4 3.7-10.4 [facility] McKinneyPzlounlLMIWNKYFBA0164-30-18 19:34:00 Test Item Value Reference Range Interpretation Comments RBC (test code = RBC) 4.46 4.20-5.40 [facility] M[id number] 19:34:00 Test Item Value Reference Range Interpretation Comments Hgb (test code = Hgb) 13.3 12.0-16.0 [facility] McKinneyUczbntzWAFKOEDZYM1947-75-07 19:34:00 Test Item Value Reference Range Interpretation Comments Hct (test code = Hct) 39.2 36.0-48.0 [facility] McKinneyBnlhpdaPHNVDXXMZS1771-58-43 19:34:00 Test Item Value Reference Range Interpretation Comments MCV (test code = MCV) 87.9 80.0-98.0 [facility] McKinneyRjakurwGZTJORMAGW8496-66-17 19:34:00 Test Item Value Reference Range Interpretation Comments MCH (test code = MCH) 29.8 pg 27.0-31.0 [facility] McKinneyEnrqzjrMHXCBCDRCD9566-59-27 19:34:00 Test Item Value Reference Range Interpretation Comments MCHC (test code = MCHC) 33.9 32.0-36.0 [facility] McKinneyDjgfumrTSKZWPJBAZ0680-36-80 19:34:00 Test Item Value Reference Range Interpretation Comments RDW (test code = RDW) 12.6 11.5-14.5 [facility]neyCynzrzfZGFNRELGND8691-22-03 19:34:00 Test Item Value Reference Range Interpretation Comments Platelet (test code = Platelet) 232 133-450 [facility] McKinneyArzwdieMBKEGQAHHD8639-94-40 19:34:00 Test Item Value Reference Range Interpretation Comments MPV (test code = MPV) 9.1 7.4-10.4 [facility] McKinneyEhyuaaaOGRDDTIMSP6844-15-45 19:34:00 Test Item Value Reference Range Interpretation Comments Segs (test code = Segs) 73.6 45.0-75.0 [facility] McKinneyMwlckikGKSQZEBGAJ1492-27-36 19:34:00 Test Item Value Reference Range Interpretation Comments Lymphocytes (test code = Lymphocytes) 19.6 20.0-40.0 [facility] McKinneyMwfclvlWJQOZFCIAD7633-23-66 19:34:00 Test Item Value Reference Range Interpretation Comments Monocytes (test code = Monocytes) 6.0 2.0-12.0 [facility] McKinneyAfrzxslMFWCHOZVFA9728-34-28 19:34:00 Test Item Value Reference Range Interpretation Comments Eosinophils (test code = 0.4 See_Comment [A utomated message] The Eosinophils) system which ge nerated this result tra nsmitted reference range : <=4.0. The reference r malcolm was not used to int erpret this result as normal/abnormal . [facility] McKinneyNnzrpcjJGRGOMQBKS2024-90-35 19:34:00 Test Item Value Reference Range Interpretation Comments Basophils (test code = 0.4 See_Comment [Aut omated message] The Basophils) system which ge nerated this result tra nsmitted reference range : <=1.0. The reference r malcolm was not used to int erpret this result as normal/abnormal . [facility]neyMkyxqjjYSJPBWFOHB9277-98-03 19:34:00 Test Item Value Reference Range Interpretation Comments Neutrophils # (test code = Neutrophils 8.4 1.5-8.1 #) [facility]neyUdldbghUBRGXPDWSK3868-40-48 19:34:00 Test Item Value Reference Range Interpretation Comments Lymphocytes # (test code = Lymphocytes 2.2 1.0-5.5 #) [facility]neyDuwzpkqRAPXNGZVBN6975-05-83 19:34:00 Test Item Value Reference Range Interpretation Comments Monocytes # (test code 0.7 See_Comment [Aut omated message] The = Monocytes #) system which generated this result tra nsmitted reference range : <=0.8. The reference r malcolm was not used to int erpret this result as normal/abnormal . [facility] AND [id number] 19:34:00 Test Item Value Reference Range Interpretation Comments UA Color (test code = Jasmine *ABN*(10/28/21 UA Color) 1:34 PM) [facility] AND [id number] 19:34:00 Test Item Value Reference Range Interpretation Comments UA Turbidity (test code Marked *ABN*(10/28/21 = UA Turbidity) 1:34 PM) [facility] AND [id number] 19:34:00 Test Item Value Reference Range Interpretation Comments UA Spec Grav (test code = UA Spec 1.026 1 Grav) [facility] AND [id number] 19:34:00 Test Item Value Reference Range Interpretation Comments UA pH (test code = UA pH) 5.0 1 5.0-8.0 [facility] AND [id number] 19:34:00 Test Item Value Reference Range Interpretation Comments UA Protein (test code = UA Protein) 30 mg/dL [facility] AND [id number] 19:34:00 Test Item Value Reference Range Interpretation Comments UA Glucose (test code = UA Negative mg/dL Glucose) [facility] AND [id number] 19:34:00 Test Item Value Reference Range Interpretation Comments UA Ketones (test code = UA Ketones) 20 mg/dL [facility] AND [id number] 19:34:00 Test Item Value Reference Range Interpretation Comments UA Bili (test code = Negative *NA*(10/28/21 UA Bili) 1:34 PM) [facility] AND [id number] 19:34:00 Test Item Value Reference Range Interpretation Comments UA Blood (test code = Negative (10/28/21 1:34 UA Blood) PM) [facility] AND [id number] 19:34:00 Test Item Value Reference Range Interpretation Comments UA Urobilinogen (test code = UA 4.0 0.1-1.0 Urobilinogen) [facility] AND [id number] 19:34:00 Test Item Value Reference Range Interpretation Comments UA Nitrite (test code Negative (10/28/21 1:34 = UA Nitrite) PM) [facility] AND [id number] 19:34:00 Test Item Value Reference Range Interpretation Comments UA Leuk Est (test code Trace *ABN*(10/28/21 = UA Leuk Est) 1:34 PM) [facility] AND [id number] 19:34:00 Test Item Value Reference Range Interpretation Comments UA Sq Epi (test code = UA Sq Epi) Many /LPF [facility] AND [id number] 19:34:00 Test Item Value Reference Range Interpretation Comments UA WBC (test code = 6 See_Comment [Automa perico message] The UA WBC) system which ge nerated this result transmit perico reference range : <=5. The reference range was not used to interpr et this result as sincere l/abnormal. [facility] AND [id number] 19:34:00 Test Item Value Reference Range Interpretation Comments UA RBC (test code = 3 See_Comment [Automa perico message] The UA RBC) system which ge nerated this result transmit perico reference range : <=2. The reference range was not used to interpr et this result as sincere l/abnormal. [facility] AND [id number] 19:34:00 Test Item Value Reference Range Interpretation Comments UA Bacteria (test code = UA Occasional /HPF Bacteria) [facility] AND [id number] 19:34:00 Test Item Value Reference Range Interpretation Comments UA Mucus (test code = UA Mucus) Few /LPF [facility]2021-12-16 19:34:00 Test Item Value Reference Range Interpretation Comments Glucose Lvl (test code = Glucose Lvl) 85 70-99 [place] 840111-12-16 19:34:00 Test Item Value Reference Range Interpretation Comments BUN (test code = BUN) 5 7-22 [place] 840111-12-16 19:34:00 Test Item Value Reference Range Interpretation Comments Creatinine Lvl (test code = Creatinine 0.52 0.50-1.40 Lvl) [facility]2021-12-16 19:34:00 Test Item Value Reference Range Interpretation Comments Sodium Lvl (test code = Sodium Lvl) 134 135-145 [place] 840111-12-16 19:34:00 Test Item Value Reference Range Interpretation Comments Potassium Lvl (test code = Potassium 3.5 3.5-5.1 Lvl) [place] 840111-12-16 19:34:00 Test Item Value Reference Range Interpretation Comments Chloride Lvl (test code = Chloride Lvl) 103 95-109 [place] 840111-12-16 19:34:00 Test Item Value Reference Range Interpretation Comments CO2 (test code = CO2) 25 24-32 [place] 840111-12-16 19:34:00 Test Item Value Reference Range Interpretation Comments Calcium Lvl (test code = Calcium Lvl) 9.1 8.5-10.5 [place] 840111-12-16 19:34:00 Test Item Value Reference Range Interpretation Comments AGAP (test code = AGAP) 9.5 10.0-20.0 [place] 840111-12-16 19:34:00 Test Item Value Reference Range Interpretation Comments eGFR (test code = eGFR) 137 [facility]neyDrsolapWKEVLWPTYC2489-84-54 19:34:00 Test Item Value Reference Range Interpretation Comments WBC (test code = WBC) 11.4 3.7-10.4 [facility] McKinneyFnwstdtRIIMAKSZNA7381-87-93 19:34:00 Test Item Value Reference Range Interpretation Comments RBC (test code = RBC) 4.46 4.20-5.40 [facility] McKinneyEalzobrWQJDHRWOZM5985-77-37 19:34:00 Test Item Value Reference Range Interpretation Comments Hgb (test code = Hgb) 13.3 12.0-16.0 [facility] McKinneyCdijcabNYWOSTIUXG2214-15-47 19:34:00 Test Item Value Reference Range Interpretation Comments Hct (test code = Hct) 39.2 36.0-48.0 [facility] McKinneyXfqomrtNMZDSWOSQB6047-48-63 19:34:00 Test Item Value Reference Range Interpretation Comments MCV (test code = MCV) 87.9 80.0-98.0 [facility] McKinneyLqnpnfmDDGPGFZLTR4742-12-30 19:34:00 Test Item Value Reference Range Interpretation Comments MCH (test code = MCH) 29.8 pg 27.0-31.0 [facility] McKinneyWhberqqPLEHUZLDOG1810-37-52 19:34:00 Test Item Value Reference Range Interpretation Comments MCHC (test code = MCHC) 33.9 32.0-36.0 [facility] McKinneyQxufuzxREAGYRVTRR6307-33-55 19:34:00 Test Item Value Reference Range Interpretation Comments RDW (test code = RDW) 12.6 11.5-14.5 [facility] McKinneyKmqetwmMCEGWWDXSK0158-19-47 19:34:00 Test Item Value Reference Range Interpretation Comments Platelet (test code = Platelet) 232 133-450 [facility] McKinneyQhgnixzWBBJRDYPSW5198-15-41 19:34:00 Test Item Value Reference Range Interpretation Comments MPV (test code = MPV) 9.1 7.4-10.4 [facility] McKinneyHkogtrsKZHBNOZZRR4727-48-96 19:34:00 Test Item Value Reference Range Interpretation Comments Segs (test code = Segs) 73.6 45.0-75.0 [facility] McKinneyTcfivesAQHLQMRDQN1402-50-95 19:34:00 Test Item Value Reference Range Interpretation Comments Lymphocytes (test code = Lymphocytes) 19.6 20.0-40.0 [facility] McKinneyTubouliOZMVESYVUY1234-07-39 19:34:00 Test Item Value Reference Range Interpretation Comments Monocytes (test code = Monocytes) 6.0 2.0-12.0 [facility] McKinneyBdwxcdqTGQZMOTIRC2982-71-49 19:34:00 Test Item Value Reference Range Interpretation Comments Eosinophils (test code = 0.4 See_Comment [A utomated message] The Eosinophils) system which ge nerated this result tra nsmitted reference range : <=4.0. The reference r malcolm was not used to int erpret this result as normal/abnormal . [facility] McKinneyBcnvdbeOXUUWXHVEK3844-77-47 19:34:00 Test Item Value Reference Range Interpretation Comments Basophils (test code = 0.4 See_Comment [Aut omated message] The Basophils) system which ge nerated this result tra nsmitted reference range : <=1.0. The reference r malcolm was not used to int erpret this result as normal/abnormal . [facility] McKinneyCkhzmdtQYYZMLVCDZ7386-02-00 19:34:00 Test Item Value Reference Range Interpretation Comments Neutrophils # (test code = Neutrophils 8.4 1.5-8.1 #) [facility] McKinneyQbvuxknDLOYYMLDFV6505-27-95 19:34:00 Test Item Value Reference Range Interpretation Comments Lymphocytes # (test code = Lymphocytes 2.2 1.0-5.5 #) [facility] McKinneyZrtpsppYNEKJBDCUL7907-75-14 19:34:00 Test Item Value Reference Range Interpretation Comments Monocytes # (test code 0.7 See_Comment [Aut omated message] The = Monocytes #) system which generated this result tra nsmitted reference range : <=0.8. The reference r malcolm was not used to int erpret this result as normal/abnormal . [facility] AND [id number] 19:34:00 Test Item Value Reference Range Interpretation Comments UA Color (test code = Jasmine *ABN*(10/28/21 UA Color) 1:34 PM) [facility] AND [id number] 19:34:00 Test Item Value Reference Range Interpretation Comments UA Turbidity (test code Marked *ABN*(10/28/21 = UA Turbidity) 1:34 PM) [facility] AND [id number] 19:34:00 Test Item Value Reference Range Interpretation Comments UA Spec Grav (test code = UA Spec 1.026 1 Grav) [facility] AND [id number] 19:34:00 Test Item Value Reference Range Interpretation Comments UA pH (test code = UA pH) 5.0 1 5.0-8.0 [facility] AND [id number] 19:34:00 Test Item Value Reference Range Interpretation Comments UA Protein (test code = UA Protein) 30 mg/dL [facility] AND [id number] 19:34:00 Test Item Value Reference Range Interpretation Comments UA Glucose (test code = UA Negative mg/dL Glucose) [facility] AND [id number] 19:34:00 Test Item Value Reference Range Interpretation Comments UA Ketones (test code = UA Ketones) 20 mg/dL [facility] AND [id number] 19:34:00 Test Item Value Reference Range Interpretation Comments UA Bili (test code = Negative *NA*(10/28/21 UA Bili) 1:34 PM) [facility] AND [id number] 19:34:00 Test Item Value Reference Range Interpretation Comments UA Blood (test code = Negative (10/28/21 1:34 UA Blood) PM) [facility] AND [id number] 19:34:00 Test Item Value Reference Range Interpretation Comments UA Urobilinogen (test code = UA 4.0 0.1-1.0 Urobilinogen) [facility] AND [id number] 19:34:00 Test Item Value Reference Range Interpretation Comments UA Nitrite (test code Negative (10/28/21 1:34 = UA Nitrite) PM) [facility] AND [id number] 19:34:00 Test Item Value Reference Range Interpretation Comments UA Leuk Est (test code Trace *ABN*(10/28/21 = UA Leuk Est) 1:34 PM) [facility] AND [id number] 19:34:00 Test Item Value Reference Range Interpretation Comments UA Sq Epi (test code = UA Sq Epi) Many /LPF [facility] AND [id number] 19:34:00 Test Item Value Reference Range Interpretation Comments UA WBC (test code = 6 See_Comment [Automa perico message] The UA WBC) system which ge nerated this result transmit perico reference range : <=5. The reference range was not used to interpr et this result as sincere l/abnormal. [facility] AND [id number] 19:34:00 Test Item Value Reference Range Interpretation Comments UA RBC (test code = 3 See_Comment [Automa perico message] The UA RBC) system which ge nerated this result transmit perico reference range : <=2. The reference range was not used to interpr et this result as sincere l/abnormal. [facility] AND [id number] 19:34:00 Test Item Value Reference Range Interpretation Comments UA Bacteria (test code = UA Occasional /HPF Bacteria) [facility] AND [id number] 19:34:00 Test Item Value Reference Range Interpretation Comments UA Mucus (test code = UA Mucus) Few /LPF [facility]2021-07-06 02:57:00 Test Item Value Reference Range Interpretation Comments Glucose Lvl (test code = Glucose Lvl) 87 70-99 [facility]2021-07-06 02:57:00 Test Item Value Reference Range Interpretation Comments BUN (test code = BUN) 10 7-22 [place] 840111-07-06 02:57:00 Test Item Value Reference Range Interpretation Comments Creatinine Lvl (test code = Creatinine 0.65 0.50-1.40 Lvl) [facility]2021-07-06 02:57:00 Test Item Value Reference Range Interpretation Comments Sodium Lvl (test code = Sodium Lvl) 143 135-145 [place] 840111-07-06 02:57:00 Test Item Value Reference Range Interpretation Comments Potassium Lvl (test code = Potassium 3.5 3.5-5.1 Lvl) [place] 840111-07-06 02:57:00 Test Item Value Reference Range Interpretation Comments Chloride Lvl (test code = Chloride Lvl) 106 95-109 [place] 840111-07-06 02:57:00 Test Item Value Reference Range Interpretation Comments CO2 (test code = CO2) 25 24-32 [facility]2021-07-06 02:57:00 Test Item Value Reference Range Interpretation Comments Calcium Lvl (test code = Calcium Lvl) 8.8 8.5-10.5 [place] 840111-07-06 02:57:00 Test Item Value Reference Range Interpretation Comments Total Protein (test code = Total 7.7 6.4-8.4 Protein) [facility] [id number] 02:57:00 Test Item Value Reference Range Interpretation Comments Albumin Lvl (test code = Albumin Lvl) 3.6 3.5-5.0 [facility] [id number] 02:57:00 Test Item Value Reference Range Interpretation Comments ALT (test code = ALT) 30 See_Comment [Auto mated message] The system which ge nerated this result transmit perico reference range : <=65. The reference range was not used to interpr et this result as sincere l/abnormal. [facility] [id number] 02:57:00 Test Item Value Reference Range Interpretation Comments AST (test code = AST) 26 See_Comment [Auto mated message] The system which ge nerated this result transmit perico reference range : <=37. The reference range was not used to interpr et this result as sincere l/abnormal. [facility] [employer] [id number] 02:57:00 Test Item Value Reference Range Interpretation Comments Alk Phos (test code = Alk Phos) 88 39-136 [facility] [employer] [id number] 02:57:00 Test Item Value Reference Range Interpretation Comments Bili Total (test code = Bili Total) 0.6 0.2-1.3 [facility] [id number] 02:57:00 Test Item Value Reference Range Interpretation Comments AGAP (test code = AGAP) 15.5 10.0-20.0 [facility] [employer] [id number] 02:57:00 Test Item Value Reference Range Interpretation Comments B/C Ratio (test code = B/C Ratio) 15 1 6-25 [facility] [id number] 02:57:00 Test Item Value Reference Range Interpretation Comments Globulin (test code = Globulin) 4.1 2.7-4.2 [facility] [employer] [id number] 02:57:00 Test Item Value Reference Range Interpretation Comments A/G Ratio (test code = A/G Ratio) 0.9 1 0.7-1.6 [facility] [id number] 02:57:00 Test Item Value Reference Range Interpretation Comments eGFR (test code = eGFR) 127 [facility] [employer] [id number] 02:57:00 Test Item Value Reference Range Interpretation Comments Lipase Lvl (test code = Lipase Lvl) 67 [address] [facility]LqnwjhpPHFJNXGTTKDID3554-05-05 02:57:00 Test Item Value Reference Range Interpretation Comments S Preg (test code = S Negative (05/17/21 9:57 Preg) PM) [facility]neyHukpplwFDKGIYSLXV6370-30-51 02:57:00 Test Item Value Reference Range Interpretation Comments WBC (test code = WBC) 7.8 3.7-10.4 [facility] McKinneyYdeycrxVEHHHDPRLF0025-00-03 02:57:00 Test Item Value Reference Range Interpretation Comments RBC (test code = RBC) 4.63 4.20-5.40 [place] 853541-07-06 02:57:00 Test Item Value Reference Range Interpretation Comments Hgb (test code = Hgb) 14.0 12.0-16.0 [place] 853541-07-06 02:57:00 Test Item Value Reference Range Interpretation Comments Hct (test code = Hct) 40.6 36.0-48.0 [place] 853541-07-06 02:57:00 Test Item Value Reference Range Interpretation Comments MCV (test code = MCV) 87.7 80.0-98.0 [place] 853541-07-06 02:57:00 Test Item Value Reference Range Interpretation Comments MCH (test code = MCH) 30.3 pg 27.0-31.0 [facility]neyHpawkuqCEOTYIXRDC9004-16-23 02:57:00 Test Item Value Reference Range Interpretation Comments MCHC (test code = MCHC) 34.5 32.0-36.0 [facility] McKinneyDnqvkkwDGDSKZBLVJ3350-23-60 02:57:00 Test Item Value Reference Range Interpretation Comments RDW (test code = RDW) 12.5 11.5-14.5 [place] 853541-07-06 02:57:00 Test Item Value Reference Range Interpretation Comments Platelet (test code = Platelet) 202 651-450 [facility] M[id number] 02:57:00 Test Item Value Reference Range Interpretation Comments MPV (test code = MPV) 8.7 7.4-10.4 [place] 853541-07-06 02:57:00 Test Item Value Reference Range Interpretation Comments Segs (test code = Segs) 61.6 45.0-75.0 [facility] McKinneyKzplbstWSLCHFCIHZ6460-29-01 02:57:00 Test Item Value Reference Range Interpretation Comments Lymphocytes (test code = Lymphocytes) 29.5 20.0-40.0 [place] 853541-07-06 02:57:00 Test Item Value Reference Range Interpretation Comments Monocytes (test code = Monocytes) 8.0 2.0-12.0 [facility] McKinneyNjnwhknBETRQMCVQM8230-34-23 02:57:00 Test Item Value Reference Range Interpretation Comments Eosinophils (test code = 0.5 See_Comment [A utomated message] The Eosinophils) system which ge nerated this result tra nsmitted reference range : <=4.0. The reference r malcolm was not used to int erpret this result as normal/abnormal . [place] 853541-07-06 02:57:00 Test Item Value Reference Range Interpretation Comments Basophils (test code = 0.5 See_Comment [Aut omated message] The Basophils) system which ge nerated this result tra nsmitted reference range : <=1.0. The reference r malcolm was not used to int erpret this result as normal/abnormal . [facility] McKinneyTbzqyjgKLKCOBQUBX4030-56-05 02:57:00 Test Item Value Reference Range Interpretation Comments Neutrophils # (test code = Neutrophils 4.8 1.5-8.1 #) [facility] McKinneyTjddvtxNLLSEYCBXI8572-58-86 02:57:00 Test Item Value Reference Range Interpretation Comments Lymphocytes # (test code = Lymphocytes 2.3 1.0-5.5 #) [facility] McKinneyHcujxxsLZUUZQCXDT9773-35-10 02:57:00 Test Item Value Reference Range Interpretation Comments Monocytes # (test code 0.6 See_Comment [Aut omated message] The = Monocytes #) system which generated this result tra nsmitted reference range : <=0.8. The reference r malcolm was not used to int erpret this result as normal/abnormal . [facility]2021-07-06 02:57:00 Test Item Value Reference Range Interpretation Comments UA Color (test code = Yellow *NA*(05/17/21 9:57 UA Color) PM) [facility] AND [id number] 02:57:00 Test Item Value Reference Range Interpretation Comments UA Turbidity (test code Cloudy *ABN*(05/17/21 = UA Turbidity) 9:57 PM) [facility] AND [id number] 02:57:00 Test Item Value Reference Range Interpretation Comments UA Spec Grav (test code = UA Spec 1.025 1 Grav) [facility] AND [id number] 02:57:00 Test Item Value Reference Range Interpretation Comments UA pH (test code = UA pH) 6.5 1 5.0-8.0 [facility] AND [id number] 02:57:00 Test Item Value Reference Range Interpretation Comments UA Protein (test code Negative (05/17/21 9:57 = UA Protein) PM) [facility] AND [id number] 02:57:00 Test Item Value Reference Range Interpretation Comments UA Glucose (test code Negative (05/17/21 9:57 = UA Glucose) PM) [facility] AND [id number] 02:57:00 Test Item Value Reference Range Interpretation Comments UA Ketones (test code = UA Ketones) 40 mg/dL [facility] AND [id number] 02:57:00 Test Item Value Reference Range Interpretation Comments UA Bili (test code = Negative *NA*(05/17/21 UA Bili) 9:57 PM) [facility] AND [id number] 02:57:00 Test Item Value Reference Range Interpretation Comments UA Blood (test code = Moderate *ABN*(05/17/21 UA Blood) 9:57 PM) [facility] AND [id number] 02:57:00 Test Item Value Reference Range Interpretation Comments UA Urobilinogen (test code = UA 2.0 0.1-1.0 Urobilinogen) [facility] AND [id number] 02:57:00 Test Item Value Reference Range Interpretation Comments UA Nitrite (test code Positive *ABN*(05/17/21 = UA Nitrite) 9:57 PM) [facility] AND [id number] 02:57:00 Test Item Value Reference Range Interpretation Comments UA Leuk Est (test code Trace *ABN*(05/17/21 9:57 = UA Leuk Est) PM) [facility] AND [id number] 02:57:00 Test Item Value Reference Range Interpretation Comments UA Sq Epi (test code = UA Sq Epi) Many /LPF [facility] AND [id number] 02:57:00 Test Item Value Reference Range Interpretation Comments UA WBC (test code = UA WBC) 11-20 /HPF [facility] AND [id number] 02:57:00 Test Item Value Reference Range Interpretation Comments UA RBC (test code = UA RBC) 6-10 /HPF [facility] AND [id number] 02:57:00 Test Item Value Reference Range Interpretation Comments UA Bacteria (test code = UA Many /HPF Bacteria) [facility] AND [id number] 02:57:00 Test Item Value Reference Range Interpretation Comments UA Mucus (test code = UA Mucus) Few /LPF [facility] AND [id number] 02:57:00 Test Item Value Reference Range Interpretation Comments UA Renal Epi (test code = UA Renal 3-5 /LPF Epi) [facility] [id number] 02:57:00 Test Item Value Reference Range Interpretation Comments Culture: Urine (test >100,000 CFU/mL code = Culture: Escherichia coli , Urine) Sensitivity Pending 10,000 - 50,000 CFU/mL [facility]2021-07-06 02:57:00 Test Item Value Reference Range Interpretation Comments Glucose Lvl (test code = Glucose Lvl) 87 70-99 [facility]2021-07-06 02:57:00 Test Item Value Reference Range Interpretation Comments BUN (test code = BUN) 10 7-22 [facility]2021-07-06 02:57:00 Test Item Value Reference Range Interpretation Comments Creatinine Lvl (test code = Creatinine 0.65 0.50-1.40 Lvl) [facility]2021-07-06 02:57:00 Test Item Value Reference Range Interpretation Comments Sodium Lvl (test code = Sodium Lvl) 143 135-145 [facility]2021-07-06 02:57:00 Test Item Value Reference Range Interpretation Comments Potassium Lvl (test code = Potassium 3.5 3.5-5.1 Lvl) [facility]2021-07-06 02:57:00 Test Item Value Reference Range Interpretation Comments Chloride Lvl (test code = Chloride Lvl) 106 95-109 [place] 840111-07-06 02:57:00 Test Item Value Reference Range Interpretation Comments CO2 (test code = CO2) 25 24-32 [place] 840111-07-06 02:57:00 Test Item Value Reference Range Interpretation Comments Calcium Lvl (test code = Calcium Lvl) 8.8 8.5-10.5 [place] 840111-07-06 02:57:00 Test Item Value Reference Range Interpretation Comments Total Protein (test code = Total 7.7 6.4-8.4 Protein) [place] 840111-07-06 02:57:00 Test Item Value Reference Range Interpretation Comments Albumin Lvl (test code = Albumin Lvl) 3.6 3.5-5.0 [place] 840111-07-06 02:57:00 Test Item Value Reference Range Interpretation Comments ALT (test code = ALT) 30 See_Comment [Auto mated message] The system which ge nerated this result transmit perico reference range : <=65. The reference range was not used to interpr et this result as sincere l/abnormal. [place] 840111-07-06 02:57:00 Test Item Value Reference Range Interpretation Comments AST (test code = AST) 26 See_Comment [Auto mated message] The system which ge nerated this result transmit perico reference range : <=37. The reference range was not used to interpr et this result as sincere l/abnormal. [place] 840111-07-06 02:57:00 Test Item Value Reference Range Interpretation Comments Alk Phos (test code = Alk Phos) 88 39-136 [place] 840111-07-06 02:57:00 Test Item Value Reference Range Interpretation Comments Bili Total (test code = Bili Total) 0.6 0.2-1.3 [place] 840111-07-06 02:57:00 Test Item Value Reference Range Interpretation Comments AGAP (test code = AGAP) 15.5 10.0-20.0 [place] 840111-07-06 02:57:00 Test Item Value Reference Range Interpretation Comments B/C Ratio (test code = B/C Ratio) 15 1 6-25 [place] 840111-07-06 02:57:00 Test Item Value Reference Range Interpretation Comments Globulin (test code = Globulin) 4.1 2.7-4.2 [facility] [id number] 02:57:00 Test Item Value Reference Range Interpretation Comments A/G Ratio (test code = A/G Ratio) 0.9 1 0.7-1.6 [facility] [id number] 02:57:00 Test Item Value Reference Range Interpretation Comments eGFR (test code = eGFR) 127 [facility] [id number] 02:57:00 Test Item Value Reference Range Interpretation Comments Lipase Lvl (test code = Lipase Lvl) 67 73-393 [facility] TexasHfpopneBBOELNGTXQATC3211-87-54 02:57:00 Test Item Value Reference Range Interpretation Comments S Preg (test code = S Negative (05/17/21 9:57 Preg) PM) [facility]neyLodxazyIQZDPYBUPR7289-88-56 02:57:00 Test Item Value Reference Range Interpretation Comments WBC (test code = WBC) 7.8 3.7-10.4 [facility] McKinneyLzphbeoAXSWXWTKBR6755-26-57 02:57:00 Test Item Value Reference Range Interpretation Comments RBC (test code = RBC) 4.63 4.20-5.40 [facility] McKinneyKwknqceYKGMEONHAJ1689-50-00 02:57:00 Test Item Value Reference Range Interpretation Comments Hgb (test code = Hgb) 14.0 12.0-16.0 [place] 853541-07-06 02:57:00 Test Item Value Reference Range Interpretation Comments Hct (test code = Hct) 40.6 36.0-48.0 [place] 853541-07-06 02:57:00 Test Item Value Reference Range Interpretation Comments MCV (test code = MCV) 87.7 80.0-98.0 [place] 853541-07-06 02:57:00 Test Item Value Reference Range Interpretation Comments MCH (test code = MCH) 30.3 pg 27.0-31.0 [facility] McKinneyQkrfrydVUIQQUWSNN1828-27-23 02:57:00 Test Item Value Reference Range Interpretation Comments MCHC (test code = MCHC) 34.5 32.0-36.0 [place] 853541-07-06 02:57:00 Test Item Value Reference Range Interpretation Comments RDW (test code = RDW) 12.5 11.5-14.5 [place] 853541-07-06 02:57:00 Test Item Value Reference Range Interpretation Comments Platelet (test code = Platelet) 202 133-450 [place] 853541-07-06 02:57:00 Test Item Value Reference Range Interpretation Comments MPV (test code = MPV) 8.7 7.4-10.4 [place] 853541-07-06 02:57:00 Test Item Value Reference Range Interpretation Comments Segs (test code = Segs) 61.6 45.0-75.0 [place] 853541-07-06 02:57:00 Test Item Value Reference Range Interpretation Comments Lymphocytes (test code = Lymphocytes) 29.5 20.0-40.0 [place] 853541-07-06 02:57:00 Test Item Value Reference Range Interpretation Comments Monocytes (test code = Monocytes) 8.0 2.0-12.0 [place] 853541-07-06 02:57:00 Test Item Value Reference Range Interpretation Comments Eosinophils (test code = 0.5 See_Comment [A utomated message] The Eosinophils) system which ge nerated this result tra nsmitted reference range : <=4.0. The reference r malcolm was not used to int erpret this result as normal/abnormal . [place] 853541-07-06 02:57:00 Test Item Value Reference Range Interpretation Comments Basophils (test code = 0.5 See_Comment [Aut omated message] The Basophils) system which ge nerated this result tra nsmitted reference range : <=1.0. The reference r malcolm was not used to int erpret this result as normal/abnormal . [place] 853541-07-06 02:57:00 Test Item Value Reference Range Interpretation Comments Neutrophils # (test code = Neutrophils 4.8 1.5-8.1 #) [place] 853541-07-06 02:57:00 Test Item Value Reference Range Interpretation Comments Lymphocytes # (test code = Lymphocytes 2.3 1.0-5.5 #) [place] 853541-07-06 02:57:00 Test Item Value Reference Range Interpretation Comments Monocytes # (test code 0.6 See_Comment [Aut omated message] The = Monocytes #) system which generated this result tra nsmitted reference range : <=0.8. The reference r malcolm was not used to int erpret this result as normal/abnormal . [facility] AND [id number] 02:57:00 Test Item Value Reference Range Interpretation Comments UA Color (test code = Yellow *NA*(05/17/21 9:57 UA Color) PM) [facility] AND [id number] 02:57:00 Test Item Value Reference Range Interpretation Comments UA Turbidity (test code Cloudy *ABN*(05/17/21 = UA Turbidity) 9:57 PM) [facility] AND [id number] 02:57:00 Test Item Value Reference Range Interpretation Comments UA Spec Grav (test code = UA Spec 1.025 1 Grav) [facility] AND [id number] 02:57:00 Test Item Value Reference Range Interpretation Comments UA pH (test code = UA pH) 6.5 1 5.0-8.0 [facility] AND [id number] 02:57:00 Test Item Value Reference Range Interpretation Comments UA Protein (test code Negative (05/17/21 9:57 = UA Protein) PM) [facility] AND [id number] 02:57:00 Test Item Value Reference Range Interpretation Comments UA Glucose (test code Negative (05/17/21 9:57 = UA Glucose) PM) [facility] AND [id number] 02:57:00 Test Item Value Reference Range Interpretation Comments UA Ketones (test code = UA Ketones) 40 mg/dL [facility] AND [id number] 02:57:00 Test Item Value Reference Range Interpretation Comments UA Bili (test code = Negative *NA*(05/17/21 UA Bili) 9:57 PM) [facility] AND [id number] 02:57:00 Test Item Value Reference Range Interpretation Comments UA Blood (test code = Moderate *ABN*(05/17/21 UA Blood) 9:57 PM) [facility] AND [id number] 02:57:00 Test Item Value Reference Range Interpretation Comments UA Urobilinogen (test code = UA 2.0 0.1-1.0 Urobilinogen) [facility] AND [id number] 02:57:00 Test Item Value Reference Range Interpretation Comments UA Nitrite (test code Positive *ABN*(05/17/21 = UA Nitrite) 9:57 PM) [facility] AND [id number] 02:57:00 Test Item Value Reference Range Interpretation Comments UA Leuk Est (test code Trace *ABN*(05/17/21 9:57 = UA Leuk Est) PM) [facility] AND [id number] 02:57:00 Test Item Value Reference Range Interpretation Comments UA Sq Epi (test code = UA Sq Epi) Many /LPF [facility] AND [id number] 02:57:00 Test Item Value Reference Range Interpretation Comments UA WBC (test code = UA WBC) 11-20 /HPF [facility] AND [id number] 02:57:00 Test Item Value Reference Range Interpretation Comments UA RBC (test code = UA RBC) 6-10 /HPF [facility] AND [id number] 02:57:00 Test Item Value Reference Range Interpretation Comments UA Bacteria (test code = UA Many /HPF Bacteria) [facility] AND [id number] 02:57:00 Test Item Value Reference Range Interpretation Comments UA Mucus (test code = UA Mucus) Few /LPF [facility] AND [id number] 02:57:00 Test Item Value Reference Range Interpretation Comments UA Renal Epi (test code = UA Renal 3-5 /LPF Epi) [facility] [id number] 02:57:00 Test Item Value Reference Range Interpretation Comments Culture: Urine (test >100,000 CFU/mL code = Culture: Escherichia coli , Urine) Sensitivity Pending 10,000 - 50,000 CFU/mL Skin Amelia [facility] [id number] 02:57:00 Test Item Value Reference Range Interpretation Comments Glucose Lvl (test code = Glucose Lvl) 87 70-99 [facility]2021-07-06 02:57:00 Test Item Value Reference Range Interpretation Comments BUN (test code = BUN) 10 7-22 [facility]2021-07-06 02:57:00 Test Item Value Reference Range Interpretation Comments Creatinine Lvl (test code = Creatinine 0.65 0.50-1.40 Lvl) [place] 840111-07-06 02:57:00 Test Item Value Reference Range Interpretation Comments Sodium Lvl (test code = Sodium Lvl) 143 135-145 [place] 840111-07-06 02:57:00 Test Item Value Reference Range Interpretation Comments Potassium Lvl (test code = Potassium 3.5 3.5-5.1 Lvl) [place] 840111-07-06 02:57:00 Test Item Value Reference Range Interpretation Comments Chloride Lvl (test code = Chloride Lvl) 106 95-109 [place] 840111-07-06 02:57:00 Test Item Value Reference Range Interpretation Comments CO2 (test code = CO2) 25 24-32 [place] 840111-07-06 02:57:00 Test Item Value Reference Range Interpretation Comments Calcium Lvl (test code = Calcium Lvl) 8.8 8.5-10.5 [place] 840111-07-06 02:57:00 Test Item Value Reference Range Interpretation Comments Total Protein (test code = Total 7.7 6.4-8.4 Protein) [place] 840111-07-06 02:57:00 Test Item Value Reference Range Interpretation Comments Albumin Lvl (test code = Albumin Lvl) 3.6 3.5-5.0 [place] 840111-07-06 02:57:00 Test Item Value Reference Range Interpretation Comments ALT (test code = ALT) 30 See_Comment [Auto mated message] The system which ge nerated this result transmit perico reference range : <=65. The reference range was not used to interpr et this result as sincere l/abnormal. [place] 840111-07-06 02:57:00 Test Item Value Reference Range Interpretation Comments AST (test code = AST) 26 See_Comment [Auto mated message] The system which ge nerated this result transmit perico reference range : <=37. The reference range was not used to interpr et this result as sincere l/abnormal. [place] [address]-07-06 02:57:00 Test Item Value Reference Range Interpretation Comments Alk Phos (test code = Alk Phos) 88 39-136 [place] 840111-07-06 02:57:00 Test Item Value Reference Range Interpretation Comments Bili Total (test code = Bili Total) 0.6 0.2-1.3 [place] 840111-07-06 02:57:00 Test Item Value Reference Range Interpretation Comments AGAP (test code = AGAP) 15.5 10.0-20.0 [place] 840111-07-06 02:57:00 Test Item Value Reference Range Interpretation Comments B/C Ratio (test code = B/C Ratio) 15 1 6-25 [place] 840111-07-06 02:57:00 Test Item Value Reference Range Interpretation Comments Globulin (test code = Globulin) 4.1 2.7-4.2 [place] 840111-07-06 02:57:00 Test Item Value Reference Range Interpretation Comments A/G Ratio (test code = A/G Ratio) 0.9 1 0.7-1.6 [place] 840111-07-06 02:57:00 Test Item Value Reference Range Interpretation Comments eGFR (test code = eGFR) 127 [facility]2021-07-06 02:57:00 Test Item Value Reference Range Interpretation Comments Lipase Lvl (test code = Lipase Lvl) 67 73-393 [facility]RmzpksnMODNNVJWPFWXG6323-69-44 02:57:00 Test Item Value Reference Range Interpretation Comments S Preg (test code = S Negative (05/17/21 9:57 Preg) PM) [place] 853541-07-06 02:57:00 Test Item Value Reference Range Interpretation Comments WBC (test code = WBC) 7.8 3.7-10.4 [place] 853541-07-06 02:57:00 Test Item Value Reference Range Interpretation Comments RBC (test code = RBC) 4.63 4.20-5.40 [place] 853541-07-06 02:57:00 Test Item Value Reference Range Interpretation Comments Hgb (test code = Hgb) 14.0 12.0-16.0 [place] 853541-07-06 02:57:00 Test Item Value Reference Range Interpretation Comments Hct (test code = Hct) 40.6 36.0-48.0 [place] 853541-07-06 02:57:00 Test Item Value Reference Range Interpretation Comments MCV (test code = MCV) 87.7 80.0-98.0 [facility]TlbvktuSDTGPZVIPU7835-42-44 02:57:00 Test Item Value Reference Range Interpretation Comments MCH (test code = MCH) 30.3 pg 27.0-31.0 [facility] McKinneyIzhjrlmIFYPXBTYRD7147-79-33 02:57:00 Test Item Value Reference Range Interpretation Comments MCHC (test code = MCHC) 34.5 32.0-36.0 [facility] McKinneyOshrkfwAAOLIWUMQT6210-98-86 02:57:00 Test Item Value Reference Range Interpretation Comments RDW (test code = RDW) 12.5 11.5-14.5 [facility] McKinneyEcgcedcLWGUETQHYO7851-92-06 02:57:00 Test Item Value Reference Range Interpretation Comments Platelet (test code = Platelet) 202 133-450 [facility] McKinneyCtcwkxcVKTWTZPGYA5710-22-45 02:57:00 Test Item Value Reference Range Interpretation Comments MPV (test code = MPV) 8.7 7.4-10.4 [facility] McKinneyTlyjevbLCAAMESCLR5975-96-05 02:57:00 Test Item Value Reference Range Interpretation Comments Segs (test code = Segs) 61.6 45.0-75.0 [facility] McKinneyOogzeubXNETXBJVNN6883-69-27 02:57:00 Test Item Value Reference Range Interpretation Comments Lymphocytes (test code = Lymphocytes) 29.5 20.0-40.0 [facility] McKinneyLpijdalIKJCAUOCNZ5130-58-78 02:57:00 Test Item Value Reference Range Interpretation Comments Monocytes (test code = Monocytes) 8.0 2.0-12.0 [facility] McKinneyUgwuhfjIPPBQHSOTO7797-75-83 02:57:00 Test Item Value Reference Range Interpretation Comments Eosinophils (test code = 0.5 See_Comment [A utomated message] The Eosinophils) system which ge nerated this result tra nsmitted reference range : <=4.0. The reference r malcolm was not used to int erpret this result as normal/abnormal . [place] 853541-07-06 02:57:00 Test Item Value Reference Range Interpretation Comments Basophils (test code = 0.5 See_Comment [Aut omated message] The Basophils) system which ge nerated this result tra nsmitted reference range : <=1.0. The reference r malcolm was not used to int erpret this result as normal/abnormal . [place] 85[address]-07-06 02:57:00 Test Item Value Reference Range Interpretation Comments Neutrophils # (test code = Neutrophils 4.8 1.5-8.1 #) [facility] McKinneyThjzusnORCUODOYOY4204-28-73 02:57:00 Test Item Value Reference Range Interpretation Comments Lymphocytes # (test code = Lymphocytes 2.3 1.0-5.5 #) [facility] McKinneyXkmzmwkPRDUCVOXNW5681-89-62 02:57:00 Test Item Value Reference Range Interpretation Comments Monocytes # (test code 0.6 See_Comment [Aut omated message] The = Monocytes #) system which generated this result tra nsmitted reference range : <=0.8. The reference r malcolm was not used to int erpret this result as normal/abnormal . [facility]2021-07-06 02:57:00 Test Item Value Reference Range Interpretation Comments UA Color (test code = Yellow *NA*(05/17/21 9:57 UA Color) PM) [facility] AND [id number] 02:57:00 Test Item Value Reference Range Interpretation Comments UA Turbidity (test code Cloudy *ABN*(05/17/21 = UA Turbidity) 9:57 PM) [facility] AND [id number] 02:57:00 Test Item Value Reference Range Interpretation Comments UA Spec Grav (test code = UA Spec 1.025 1 Grav) [facility] AND [id number] 02:57:00 Test Item Value Reference Range Interpretation Comments UA pH (test code = UA pH) 6.5 1 5.0-8.0 [facility] AND [id number] 02:57:00 Test Item Value Reference Range Interpretation Comments UA Protein (test code Negative (05/17/21 9:57 = UA Protein) PM) [facility] AND [id number] 02:57:00 Test Item Value Reference Range Interpretation Comments UA Glucose (test code Negative (05/17/21 9:57 = UA Glucose) PM) [facility] AND [id number] 02:57:00 Test Item Value Reference Range Interpretation Comments UA Ketones (test code = UA Ketones) 40 mg/dL [facility]2021-07-06 02:57:00 Test Item Value Reference Range Interpretation Comments UA Bili (test code = Negative *NA*(05/17/21 UA Bili) 9:57 PM) [facility] [id number] 02:57:00 Test Item Value Reference Range Interpretation Comments UA Blood (test code = Moderate *ABN*(05/17/21 UA Blood) 9:57 PM) [facility] AND [id number] 02:57:00 Test Item Value Reference Range Interpretation Comments UA Urobilinogen (test code = UA 2.0 0.1-1.0 Urobilinogen) [facility] [id number] 02:57:00 Test Item Value Reference Range Interpretation Comments UA Nitrite (test code Positive *ABN*(05/17/21 = UA Nitrite) 9:57 PM) [facility] [id number] 02:57:00 Test Item Value Reference Range Interpretation Comments UA Leuk Est (test code Trace *ABN*(05/17/21 9:57 = UA Leuk Est) PM) [facility] AND [id number] 02:57:00 Test Item Value Reference Range Interpretation Comments UA Sq Epi (test code = UA Sq Epi) Many /LPF [facility] AND [id number] 02:57:00 Test Item Value Reference Range Interpretation Comments UA WBC (test code = UA WBC) 11-20 /HPF [facility] AND [id number] 02:57:00 Test Item Value Reference Range Interpretation Comments UA RBC (test code = UA RBC) 6-10 /HPF [facility] AND [id number] 02:57:00 Test Item Value Reference Range Interpretation Comments UA Bacteria (test code = UA Many /HPF Bacteria) [facility] AND [id number] 02:57:00 Test Item Value Reference Range Interpretation Comments UA Mucus (test code = UA Mucus) Few /LPF [facility] AND [id number] 02:57:00 Test Item Value Reference Range Interpretation Comments UA Renal Epi (test code = UA Renal 3-5 /LPF Epi) [facility] [id number] 02:57:00 Test Item Value Reference Range Interpretation Comments Culture: Urine (test >100,000 CFU/mL code = Culture: Escherichia coli , Urine) Sensitivity Pending 10,000 - 50,000 CFU/mL Skin Amelia [place] [id number] 13:32:00 Test Item Value Reference Range Interpretation Comments Grp A Strep Scr (test Negative (05/13/21 8:32 code = Grp A Strep AM) Scr) [facility] Throat Strep [id number] 13:32:00 Test Item Value Reference Range Interpretation Comments Culture: Throat Strep Culture In Progress Screen (test code = Culture: Throat Strep Screen) [place] [id number] 13:32:00 Test Item Value Reference Range Interpretation Comments Grp A Strep Scr (test Negative (05/13/21 8:32 code = Grp A Strep AM) Scr) [facility]: Throat Strep [id number] 13:32:00 Test Item Value Reference Range Interpretation Comments Culture: Throat Strep Culture In Progress Screen (test code = Culture: Throat Strep Screen) [place] [id number] 13:32:00 Test Item Value Reference Range Interpretation Comments Grp A Strep Scr (test Negative (05/13/21 8:32 code = Grp A Strep AM) Scr) [facility] Throat Strep [id number] 13:32:00 Test Item Value Reference Range Interpretation Comments Culture: Throat Strep Culture In Progress Screen (test code = Culture: Throat Strep Screen) [facility]2021-03-23 17:34:00 Test Item Value Reference Range Interpretation Comments Glucose Lvl (test code = Glucose Lvl) 92 70-99 [facility]2021-03-23 17:34:00 Test Item Value Reference Range Interpretation Comments BUN (test code = BUN) 13 - [facility]2021-03-23 17:34:00 Test Item Value Reference Range Interpretation Comments Creatinine Lvl (test code = Creatinine 0.84 0.50-1.40 Lvl) [facility] [id number] 17:34:00 Test Item Value Reference Range Interpretation Comments Sodium Lvl (test code = Sodium Lvl) 138 135-145 [facility]2021-03-23 17:34:00 Test Item Value Reference Range Interpretation Comments Potassium Lvl (test code = Potassium 3.8 3.5-5.1 Lvl) [facility]2021-03-23 17:34:00 Test Item Value Reference Range Interpretation Comments Chloride Lvl (test code = Chloride Lvl) 100 95-109 [facility] [employer] [id number] 17:34:00 Test Item Value Reference Range Interpretation Comments CO2 (test code = CO2) 26 24-32 [facility] [employer] [id number] 17:34:00 Test Item Value Reference Range Interpretation Comments Calcium Lvl (test code = Calcium Lvl) 9.8 8.5-10.5 [facility] [employer] [id number] 17:34:00 Test Item Value Reference Range Interpretation Comments Total Protein (test code = Total 8.8 6.4-8.4 Protein) [facility] [employer] [id number] 17:34:00 Test Item Value Reference Range Interpretation Comments Albumin Lvl (test code = Albumin Lvl) 4.2 3.5-5.0 [facility] [employer] [id number] 17:34:00 Test Item Value Reference Range Interpretation Comments ALT (test code = ALT) 29 See_Comment [Auto mated message] The system which ge nerated this result transmit perico reference range : <=65. The reference range was not used to interpr et this result as sincere l/abnormal. [facility] [employer] [id number] 17:34:00 Test Item Value Reference Range Interpretation Comments AST (test code = AST) 15 See_Comment [Auto mated message] The system which ge nerated this result transmit perico reference range : <=37. The reference range was not used to interpr et this result as sincere l/abnormal. [facility] [employer] [id number] 17:34:00 Test Item Value Reference Range Interpretation Comments Alk Phos (test code = Alk Phos) 124 39-136 [facility] [employer] [id number] 17:34:00 Test Item Value Reference Range Interpretation Comments Bili Total (test code = Bili Total) 1.4 0.2-1.3 [facility] [employer] [id number] 17:34:00 Test Item Value Reference Range Interpretation Comments AGAP (test code = AGAP) 15.8 10.0-20.0 [facility] [employer] [id number] 17:34:00 Test Item Value Reference Range Interpretation Comments B/C Ratio (test code = B/C Ratio) 15 1 6-25 [place] 840111-03-23 17:34:00 Test Item Value Reference Range Interpretation Comments Globulin (test code = Globulin) 4.6 2.7-4.2 [place] 840111-03-23 17:34:00 Test Item Value Reference Range Interpretation Comments A/G Ratio (test code = A/G Ratio) 0.9 1 0.7-1.6 [place] [address]-03-23 17:34:00 Test Item Value Reference Range Interpretation Comments eGFR (test code = eGFR) 100 [place] 840111-03-23 17:34:00 Test Item Value Reference Range Interpretation Comments Lipase Lvl (test code = Lipase Lvl) 99 73-393 [place] 840111-03-23 17:34:00 Test Item Value Reference Range Interpretation Comments Lactic Acid Lvl (test code = Lactic 1.0 0.5-2.2 Acid Lvl) [facility] TexasD[id number] 17:34:00 Test Item Value Reference Range Interpretation Comments S Preg (test code = S Negative (02/02/21 12:34 Preg) PM) [place] 853541-03-23 17:34:00 Test Item Value Reference Range Interpretation Comments WBC (test code = WBC) 14.8 3.7-10.4 [place] 853541-03-23 17:34:00 Test Item Value Reference Range Interpretation Comments RBC (test code = RBC) 5.09 4.20-5.40 [place] 853541-03-23 17:34:00 Test Item Value Reference Range Interpretation Comments Hgb (test code = Hgb) 15.0 12.0-16.0 [place] [address]-03-23 17:34:00 Test Item Value Reference Range Interpretation Comments Hct (test code = Hct) 45.9 36.0-48.0 [place] 853541-03-23 17:34:00 Test Item Value Reference Range Interpretation Comments MCV (test code = MCV) 90.3 80.0-98.0 [place] 853541-03-23 17:34:00 Test Item Value Reference Range Interpretation Comments MCH (test code = MCH) 29.6 pg 27.0-31.0 [place] [address]-03-23 17:34:00 Test Item Value Reference Range Interpretation Comments MCHC (test code = MCHC) 32.8 32.0-36.0 [place] [address]-03-23 17:34:00 Test Item Value Reference Range Interpretation Comments RDW (test code = RDW) 12.7 11.5-14.5 [place] [address]-03-23 17:34:00 Test Item Value Reference Range Interpretation Comments Platelet (test code = Platelet) 254 133-450 [place] 853541-03-23 17:34:00 Test Item Value Reference Range Interpretation Comments MPV (test code = MPV) 9.2 7.4-10.4 [place] [address]-03-23 17:34:00 Test Item Value Reference Range Interpretation Comments Segs (test code = Segs) 81.7 45.0-75.[address]03-23 17:34:00 Test Item Value Reference Range Interpretation Comments Lymphocytes (test code = Lymphocytes) 11.5 20.0-40.0 [place] [address]-03-23 17:34:00 Test Item Value Reference Range Interpretation Comments Monocytes (test code = Monocytes) 6.2 2.0-12.0 [place] [address]-03-23 17:34:00 Test Item Value Reference Range Interpretation Comments Eosinophils (test code = 0.2 See_Comment [A utomated message] The Eosinophils) system which ge nerated this result tra nsmitted reference range : <=4.0. The reference r malcolm was not used to int erpret this result as normal/abnormal . [place] [address]-03-23 17:34:00 Test Item Value Reference Range Interpretation Comments Basophils (test code = 0.5 See_Comment [Aut omated message] The Basophils) system which ge nerated this result tra nsmitted reference range : <=1.0. The reference r malcolm was not used to int erpret this result as normal/abnormal . [address]03-23 17:34:00 Test Item Value Reference Range Interpretation Comments Neutrophils # (test code = Neutrophils 12.1 1.5-8.1 #) [address]03-23 17:34:00 Test Item Value Reference Range Interpretation Comments Lymphocytes # (test code = Lymphocytes 1.7 1.0-5.5 #) [facility] 17:34:00 Test Item Value Reference Range Interpretation Comments Monocytes # (test code 0.9 See_Comment [Aut omated message] The = Monocytes #) system which generated this result tra nsmitted reference range : <=0.8. The reference r malcolm was not used to int erpret this result as normal/abnormal . [facility] CenterLysracvEPGYGYEAJH2051-91-12 17:34:00 Test Item Value Reference Range Interpretation Comments Basophils # (test code 0.1 See_Comment [Aut omated message] The = Basophils #) system which generated this result tra nsmitted reference range : <=0.2. The reference r malcolm was not used to int erpret this result as normal/abnormal . [facility] CenterKktiminYAHJFCGVPL9222-92-55 17:34:00 Test Item Value Reference Range Interpretation Comments Coronavirus (COVID-19) Not Detected (02/02/21 MILAGROS (test code = 12:34 PM) Coronavirus (COVID-19) MILAGROS) [facility] CenterNITROFURANTOIN:SUSC:PT:ISOLATE:ORDQN:[id number] 17:34:00 Test Item Value Reference Range Interpretation Comments Culture: Urine (test 10,000 - 50,000 CFU/mL code = Culture: Escherichia coli <10,000 Urine) CFU/mL Skin Amelia [facility] CenterNITROFURANTOIN:SUSC:PT:ISOLATE:ORDQN:[id number] 17:34:00 Test Item Value Reference Range Interpretation Comments Escherichia coli (test code Escherichia coli = Escherichia coli) [facility] AND [id number] 17:34:00 Test Item Value Reference Range Interpretation Comments UA Color (test code = Yellow *NA*(02/02/21 UA Color) 12:34 PM) [facility] AND [id number] 17:34:00 Test Item Value Reference Range Interpretation Comments UA Turbidity (test code Slight Cloudy = UA Turbidity) (02/02/21 12:34 PM) [facility] AND [id number] 17:34:00 Test Item Value Reference Range Interpretation Comments UA Spec Grav (test code = UA Spec 1.020 1 Grav) [facility] AND [id number] 17:34:00 Test Item Value Reference Range Interpretation Comments UA pH (test code = UA pH) 6.5 1 5.0-8.0 [facility] AND [id number] 17:34:00 Test Item Value Reference Range Interpretation Comments UA Protein (test code = Trace *ABN*(02/02/21 UA Protein) 12:34 PM) [facility] [id number] 17:34:00 Test Item Value Reference Range Interpretation Comments UA Glucose (test code Negative (02/02/21 12:34 = UA Glucose) PM) [facility] AND [id number] 17:34:00 Test Item Value Reference Range Interpretation Comments UA Ketones (test code = UA Ketones) 15 mg/dL [facility] AND [id number] 17:34:00 Test Item Value Reference Range Interpretation Comments UA Bili (test code = Small *ABN*(02/02/21 UA Bili) 12:34 PM) [facility] AND [id number] 17:34:00 Test Item Value Reference Range Interpretation Comments UA Blood (test code = Negative (02/02/21 12:34 UA Blood) PM) [facility] AND [id number] 17:34:00 Test Item Value Reference Range Interpretation Comments UA Urobilinogen (test code = UA 1.0 0.1-1.0 Urobilinogen) [facility] AND [id number] 17:34:00 Test Item Value Reference Range Interpretation Comments UA Nitrite (test code Negative (02/02/21 12:34 = UA Nitrite) PM) [facility] AND [id number] 17:34:00 Test Item Value Reference Range Interpretation Comments UA Leuk Est (test Moderate *ABN*(02/02/21 code = UA Leuk Est) 12:34 PM) [facility] [id number] 17:34:00 Test Item Value Reference Range Interpretation Comments UA Sq Epi (test code = UA Sq Moderate /LPF Epi) [facility] AND [id number] 17:34:00 Test Item Value Reference Range Interpretation Comments UA WBC (test code = UA WBC) 51-100 /HPF [facility] AND [id number] 17:34:00 Test Item Value Reference Range Interpretation Comments UA RBC (test code = UA RBC) 0-2 /HPF [facility] AND [id number] 17:34:00 Test Item Value Reference Range Interpretation Comments UA Bacteria (test code = UA Moderate /HPF Bacteria) [facility] AND [id number] 17:34:00 Test Item Value Reference Range Interpretation Comments UA Mucus (test code = UA Mucus) Moderate /LPF [facility] [id number] 17:34:00 Test Item Value Reference Range Interpretation Comments Culture: Urine 10,000 - 50,000 CFU/mL Gram (test code = Negative Rods . Culture: Urine) Identification And Sensitivity Pending [facility]2021-03-23 17:34:00 Test Item Value Reference Range Interpretation Comments Glucose Lvl (test code = Glucose Lvl) 92 70-99 [facility]2021-03-23 17:34:00 Test Item Value Reference Range Interpretation Comments BUN (test code = BUN) 13 7-22 [facility]2021-03-23 17:34:00 Test Item Value Reference Range Interpretation Comments Creatinine Lvl (test code = Creatinine 0.84 0.50-1.40 Lvl) [facility]2021-03-23 17:34:00 Test Item Value Reference Range Interpretation Comments Sodium Lvl (test code = Sodium Lvl) 138 135-145 [facility]2021-03-23 17:34:00 Test Item Value Reference Range Interpretation Comments Potassium Lvl (test code = Potassium 3.8 3.5-5.1 Lvl) [facility]2021-03-23 17:34:00 Test Item Value Reference Range Interpretation Comments Chloride Lvl (test code = Chloride Lvl) 100 95-109 [facility]2021-03-23 17:34:00 Test Item Value Reference Range Interpretation Comments CO2 (test code = CO2) 26 24-32 [facility]2021-03-23 17:34:00 Test Item Value Reference Range Interpretation Comments Calcium Lvl (test code = Calcium Lvl) 9.8 8.5-10.5 [facility]2021-03-23 17:34:00 Test Item Value Reference Range Interpretation Comments Total Protein (test code = Total 8.8 6.4-8.4 Protein) [facility] [employer] [id number] 17:34:00 Test Item Value Reference Range Interpretation Comments Albumin Lvl (test code = Albumin Lvl) 4.2 3.5-5.0 [facility] [employer] [id number] 17:34:00 Test Item Value Reference Range Interpretation Comments ALT (test code = ALT) 29 See_Comment [Auto mated message] The system which ge nerated this result transmit perico reference range : <=65. The reference range was not used to interpr et this result as sincere l/abnormal. [facility] [employer] [id number] 17:34:00 Test Item Value Reference Range Interpretation Comments AST (test code = AST) 15 See_Comment [Auto mated message] The system which ge nerated this result transmit perico reference range : <=37. The reference range was not used to interpr et this result as sincere l/abnormal. [facility] [employer] [id number] 17:34:00 Test Item Value Reference Range Interpretation Comments Alk Phos (test code = Alk Phos) 124 39-136 [facility] [employer] [id number] 17:34:00 Test Item Value Reference Range Interpretation Comments Bili Total (test code = Bili Total) 1.4 0.2-1.3 [facility] [employer] [id number] 17:34:00 Test Item Value Reference Range Interpretation Comments AGAP (test code = AGAP) 15.8 10.0-20.0 [facility] [employer] [id number] 17:34:00 Test Item Value Reference Range Interpretation Comments B/C Ratio (test code = B/C Ratio) 15 1 6-25 [facility] [employer] [id number] 17:34:00 Test Item Value Reference Range Interpretation Comments Globulin (test code = Globulin) 4.6 2.7-4.2 [facility] [employer] [id number] 17:34:00 Test Item Value Reference Range Interpretation Comments A/G Ratio (test code = A/G Ratio) 0.9 1 0.7-1.6 [facility] [employer] [id number] 17:34:00 Test Item Value Reference Range Interpretation Comments eGFR (test code = eGFR) 100 [facility]2021-03-23 17:34:00 Test Item Value Reference Range Interpretation Comments Lipase Lvl (test code = Lipase Lvl) 99 73-393 [facility]2021-03-23 17:34:00 Test Item Value Reference Range Interpretation Comments Lactic Acid Lvl (test code = Lactic 1.0 0.5-2.2 Acid Lvl) [id number] 17:34:00 Test Item Value Reference Range Interpretation Comments S Preg (test code = S Negative (02/02/21 12:34 Preg) PM) [id number] 17:34:00 Test Item Value Reference Range Interpretation Comments WBC (test code = WBC) 14.8 3.7-10.4 [place] 853541-03-23 17:34:00 Test Item Value Reference Range Interpretation Comments RBC (test code = RBC) 5.09 4.20-5.40 [place] 853541-03-23 17:34:00 Test Item Value Reference Range Interpretation Comments Hgb (test code = Hgb) 15.0 12.0-16.0 [facility] [id number] 17:34:00 Test Item Value Reference Range Interpretation Comments Hct (test code = Hct) 45.9 36.0-48.0 [place] 853541-03-23 17:34:00 Test Item Value Reference Range Interpretation Comments MCV (test code = MCV) 90.3 80.0-98.0 [place] 853541-03-23 17:34:00 Test Item Value Reference Range Interpretation Comments MCH (test code = MCH) 29.6 pg 27.0-31.0 [place] 853541-03-23 17:34:00 Test Item Value Reference Range Interpretation Comments MCHC (test code = MCHC) 32.8 32.0-36.0 [place] 853541-03-23 17:34:00 Test Item Value Reference Range Interpretation Comments RDW (test code = RDW) 12.7 11.5-14.5 [facility] McKinneyNxdyvlrCXTXQDZBRY2691-28-29 17:34:00 Test Item Value Reference Range Interpretation Comments Platelet (test code = Platelet) 254 133-450 [facility] McKinneyEhuucgtJMDTKOJRGK1295-43-20 17:34:00 Test Item Value Reference Range Interpretation Comments MPV (test code = MPV) 9.2 7.4-10.4 [place] 853541-03-23 17:34:00 Test Item Value Reference Range Interpretation Comments Segs (test code = Segs) 81.7 45.0-75.0 [place] 853541-03-23 17:34:00 Test Item Value Reference Range Interpretation Comments Lymphocytes (test code = Lymphocytes) 11.5 20.0-40.0 [place] 853541-03-23 17:34:00 Test Item Value Reference Range Interpretation Comments Monocytes (test code = Monocytes) 6.2 2.0-12.0 [place] 853541-03-23 17:34:00 Test Item Value Reference Range Interpretation Comments Eosinophils (test code = 0.2 See_Comment [A utomated message] The Eosinophils) system which ge nerated this result tra nsmitted reference range : <=4.0. The reference r malcolm was not used to int erpret this result as normal/abnormal . [place] 853541-03-23 17:34:00 Test Item Value Reference Range Interpretation Comments Basophils (test code = 0.5 See_Comment [Aut omated message] The Basophils) system which ge nerated this result tra nsmitted reference range : <=1.0. The reference r malcolm was not used to int erpret this result as normal/abnormal . [place] 853541-03-23 17:34:00 Test Item Value Reference Range Interpretation Comments Neutrophils # (test code = Neutrophils 12.1 1.5-8.1 #) [place] 853541-03-23 17:34:00 Test Item Value Reference Range Interpretation Comments Lymphocytes # (test code = Lymphocytes 1.7 1.0-5.5 #) [place] 853541-03-23 17:34:00 Test Item Value Reference Range Interpretation Comments Monocytes # (test code 0.9 See_Comment [Aut omated message] The = Monocytes #) system which generated this result tra nsmitted reference range : <=0.8. The reference r malcolm was not used to int erpret this result as normal/abnormal . [place] 853541-03-23 17:34:00 Test Item Value Reference Range Interpretation Comments Basophils # (test code 0.1 See_Comment [Aut omated message] The = Basophils #) system which generated this result tra nsmitted reference range : <=0.2. The reference r malcolm was not used to int erpret this result as normal/abnormal . [facility] [id number] 17:34:00 Test Item Value Reference Range Interpretation Comments Coronavirus (COVID-19) Not Detected (02/02/21 MILAGROS (test code = 12:34 PM) Coronavirus (COVID-19) MILAGROS) [facility]annNITROFURANTOIN:SUSC:PT:ISOLATE:ORDQN:[id number] 17:34:00 Test Item Value Reference Range Interpretation Comments Culture: Urine (test 10,000 - 50,000 CFU/mL code = Culture: Escherichia coli <10,000 Urine) CFU/mL Skin [place] [facility] HospitalannNITROFURANTOIN:SUSC:PT:ISOLATE:ORDQN:[id number] 17:34:00 Test Item Value Reference Range Interpretation Comments Escherichia coli (test code Escherichia coli = Escherichia coli) [facility] AND [id number] 17:34:00 Test Item Value Reference Range Interpretation Comments UA Color (test code = Yellow *NA*(02/02/21 UA Color) 12:34 PM) [facility] AND [id number] 17:34:00 Test Item Value Reference Range Interpretation Comments UA Turbidity (test code Slight Cloudy = UA Turbidity) (02/02/21 12:34 PM) [facility] [id number] 17:34:00 Test Item Value Reference Range Interpretation Comments UA Spec Grav (test code = UA Spec 1.020 1 Grav) [facility] [id number] 17:34:00 Test Item Value Reference Range Interpretation Comments UA pH (test code = UA pH) 6.5 1 5.0-8.0 [facility] AND [id number] 17:34:00 Test Item Value Reference Range Interpretation Comments UA Protein (test code = Trace *ABN*(02/02/21 UA Protein) 12:34 PM) [facility] [id number] 17:34:00 Test Item Value Reference Range Interpretation Comments UA Glucose (test code Negative (02/02/21 12:34 = UA Glucose) PM) [facility] [id number] 17:34:00 Test Item Value Reference Range Interpretation Comments UA Ketones (test code = UA Ketones) 15 mg/dL [facility] [id number] 17:34:00 Test Item Value Reference Range Interpretation Comments UA Bili (test code = Small *ABN*(02/02/21 UA Bili) 12:34 PM) [facility] [id number] 17:34:00 Test Item Value Reference Range Interpretation Comments UA Blood (test code = Negative (02/02/21 12:34 UA Blood) PM) [facility] [id number] 17:34:00 Test Item Value Reference Range Interpretation Comments UA Urobilinogen (test code = UA 1.0 0.1-1.0 Urobilinogen) [facility] [id number] 17:34:00 Test Item Value Reference Range Interpretation Comments UA Nitrite (test code Negative (02/02/21 12:34 = UA Nitrite) PM) [facility] [id number] 17:34:00 Test Item Value Reference Range Interpretation Comments UA Leuk Est (test Moderate *ABN*(02/02/21 code = UA Leuk Est) 12:34 PM) [facility] [id number] 17:34:00 Test Item Value Reference Range Interpretation Comments UA Sq Epi (test code = UA Sq Moderate /LPF Epi) [facility] [id number] 17:34:00 Test Item Value Reference Range Interpretation Comments UA WBC (test code = UA WBC) 51-100 /HPF [facility] [id number] 17:34:00 Test Item Value Reference Range Interpretation Comments UA RBC (test code = UA RBC) 0-2 /HPF [facility] [id number] 17:34:00 Test Item Value Reference Range Interpretation Comments UA Bacteria (test code = UA Moderate /HPF Bacteria) [facility] [id number] 17:34:00 Test Item Value Reference Range Interpretation Comments UA Mucus (test code = UA Mucus) Moderate /LPF [facility]: [id number] 17:34:00 Test Item Value Reference Range Interpretation Comments Culture: Urine 10,000 - 50,000 CFU/mL Gram (test code = Negative Rods . Culture: Urine) Identification And Sensitivity Pending [place] 840111-03-23 17:34:00 Test Item Value Reference Range Interpretation Comments Glucose Lvl (test code = Glucose Lvl) 92 70-99 [place] 840111-03-23 17:34:00 Test Item Value Reference Range Interpretation Comments BUN (test code = BUN) 13 7-22 [place] 840111-03-23 17:34:00 Test Item Value Reference Range Interpretation Comments Creatinine Lvl (test code = Creatinine 0.84 0.50-1.40 Lvl) [place] 840111-03-23 17:34:00 Test Item Value Reference Range Interpretation Comments Sodium Lvl (test code = Sodium Lvl) 138 135-145 [place] 840111-03-23 17:34:00 Test Item Value Reference Range Interpretation Comments Potassium Lvl (test code = Potassium 3.8 3.5-5.1 Lvl) [place] 840111-03-23 17:34:00 Test Item Value Reference Range Interpretation Comments Chloride Lvl (test code = Chloride Lvl) 100 95-109 [place] 840111-03-23 17:34:00 Test Item Value Reference Range Interpretation Comments CO2 (test code = CO2) 26 24-32 [place] [address]-03-23 17:34:00 Test Item Value Reference Range Interpretation Comments Calcium Lvl (test code = Calcium Lvl) 9.8 8.5-10.5 [place] 840111-03-23 17:34:00 Test Item Value Reference Range Interpretation Comments Total Protein (test code = Total 8.8 6.4-8.4 Protein) [place] 840111-03-23 17:34:00 Test Item Value Reference Range Interpretation Comments Albumin Lvl (test code = Albumin Lvl) 4.2 3.5-5.0 [place] 840111-03-23 17:34:00 Test Item Value Reference Range Interpretation Comments ALT (test code = ALT) 29 See_Comment [Auto mated message] The system which ge nerated this result transmit perico reference range : <=65. The reference range was not used to interpr et this result as sincere l/abnormal. [facility] [id number] 17:34:00 Test Item Value Reference Range Interpretation Comments AST (test code = AST) 15 See_Comment [Auto mated message] The system which ge nerated this result transmit perico reference range : <=37. The reference range was not used to interpr et this result as sincere l/abnormal. [facility] [id number] 17:34:00 Test Item Value Reference Range Interpretation Comments Alk Phos (test code = Alk Phos) 124 39-136 [facility] [id number] 17:34:00 Test Item Value Reference Range Interpretation Comments Bili Total (test code = Bili Total) 1.4 0.2-1.3 [place] 840111-03-23 17:34:00 Test Item Value Reference Range Interpretation Comments AGAP (test code = AGAP) 15.8 10.0-20.0 [facility] [id number] 17:34:00 Test Item Value Reference Range Interpretation Comments B/C Ratio (test code = B/C Ratio) 15 1 6-25 [facility] [id number] 17:34:00 Test Item Value Reference Range Interpretation Comments Globulin (test code = Globulin) 4.6 2.7-4.2 [facility] [id number] 17:34:00 Test Item Value Reference Range Interpretation Comments A/G Ratio (test code = A/G Ratio) 0.9 1 0.7-1.6 [facility] [id number] 17:34:00 Test Item Value Reference Range Interpretation Comments eGFR (test code = eGFR) 100 [facility] [id number] 17:34:00 Test Item Value Reference Range Interpretation Comments Lipase Lvl (test code = Lipase Lvl) 99 73-393 [facility] [id number] 17:34:00 Test Item Value Reference Range Interpretation Comments Lactic Acid Lvl (test code = Lactic 1.0 0.5-2.2 Acid Lvl) [facility] HospitalQtsdmwhGUBOJBONYGHMV1762-06-02 17:34:00 Test Item Value Reference Range Interpretation Comments S Preg (test code = S Negative (3/23/21 12:34 Preg) PM) [facility]n[id number] 17:34:00 Test Item Value Reference Range Interpretation Comments WBC (test code = WBC) 14.8 3.7-10.4 [place] [address]-03-23 17:34:00 Test Item Value Reference Range Interpretation Comments RBC (test code = RBC) 5.09 4.20-5.40 [place] 853541-03-23 17:34:00 Test Item Value Reference Range Interpretation Comments Hgb (test code = Hgb) 15.0 12.0-16.0 [place] [address]-03-23 17:34:00 Test Item Value Reference Range Interpretation Comments Hct (test code = Hct) 45.9 36.0-48.0 [place] [address]-03-23 17:34:00 Test Item Value Reference Range Interpretation Comments MCV (test code = MCV) 90.3 80.0-98.0 [place] [address]-03-23 17:34:00 Test Item Value Reference Range Interpretation Comments MCH (test code = MCH) 29.6 pg 27.0-31.0 [place] [address]-03-23 17:34:00 Test Item Value Reference Range Interpretation Comments MCHC (test code = MCHC) 32.8 32.0-36.0 [facility] M[id number] 17:34:00 Test Item Value Reference Range Interpretation Comments RDW (test code = RDW) 12.7 11.5-14.5 [place] 853541-03-23 17:34:00 Test Item Value Reference Range Interpretation Comments Platelet (test code = Platelet) 254 133-450 [place] 853541-03-23 17:34:00 Test Item Value Reference Range Interpretation Comments MPV (test code = MPV) 9.2 7.4-10.4 [place] [address]-03-23 17:34:00 Test Item Value Reference Range Interpretation Comments Segs (test code = Segs) 81.7 45.0-75.0 [place] [address]-03-23 17:34:00 Test Item Value Reference Range Interpretation Comments Lymphocytes (test code = Lymphocytes) 11.5 20.0-40.0 [place] [address]-03-23 17:34:00 Test Item Value Reference Range Interpretation Comments Monocytes (test code = Monocytes) 6.2 2.0-12.0 [place] [address]-03-23 17:34:00 Test Item Value Reference Range Interpretation Comments Eosinophils (test code = 0.2 See_Comment [A utomated message] The Eosinophils) system which ge nerated this result tra nsmitted reference range : <=4.0. The reference r malcolm was not used to int erpret this result as normal/abnormal . [place] 853541-03-23 17:34:00 Test Item Value Reference Range Interpretation Comments Basophils (test code = 0.5 See_Comment [Aut omated message] The Basophils) system which ge nerated this result tra nsmitted reference range : <=1.0. The reference r malcolm was not used to int erpret this result as normal/abnormal . [place] 853541-03-23 17:34:00 Test Item Value Reference Range Interpretation Comments Neutrophils # (test code = Neutrophils 12.1 1.5-8.1 #) [place] 853541-03-23 17:34:00 Test Item Value Reference Range Interpretation Comments Lymphocytes # (test code = Lymphocytes 1.7 1.0-5.5 #) [place] 853541-03-23 17:34:00 Test Item Value Reference Range Interpretation Comments Monocytes # (test code 0.9 See_Comment [Aut omated message] The = Monocytes #) system which generated this result tra nsmitted reference range : <=0.8. The reference r malcolm was not used to int erpret this result as normal/abnormal . [place] [address]-03-23 17:34:00 Test Item Value Reference Range Interpretation Comments Basophils # (test code 0.1 See_Comment [Aut omated message] The = Basophils #) system which generated this result tra nsmitted reference range : <=0.2. The reference r malcolm was not used to int erpret this result as normal/abnormal . [place] 889941-03-23 17:34:00 Test Item Value Reference Range Interpretation Comments Coronavirus (COVID-19) Not Detected (02/02/21 MILAGROS (test code = 12:34 PM) Coronavirus (COVID-19) MILAGROS) [facility]SUSC:PT:ISOLATE:ORDQN:[id number] 17:34:00 Test Item Value Reference Range Interpretation Comments Culture: Urine (test 10,000 - 50,000 CFU/mL code = Culture: Escherichia coli <10,000 Urine) CFU/mL Skin [place] [facility] BenTOIN:SUSC:PT:ISOLATE:ORDQN:[id number] 17:34:00 Test Item Value Reference Range Interpretation Comments Escherichia coli (test code Escherichia coli = Escherichia coli) [facility] AND [id number] 17:34:00 Test Item Value Reference Range Interpretation Comments UA Color (test code = Yellow *NA*(02/02/21 UA Color) 12:34 PM) [facility] AND [id number] 17:34:00 Test Item Value Reference Range Interpretation Comments UA Turbidity (test code Slight Cloudy = UA Turbidity) (02/02/21 12:34 PM) [facility] AND [id number] 17:34:00 Test Item Value Reference Range Interpretation Comments UA Spec Grav (test code = UA Spec 1.020 1 Grav) [facility] AND [id number] 17:34:00 Test Item Value Reference Range Interpretation Comments UA pH (test code = UA pH) 6.5 1 5.0-8.0 [facility] [id number] 17:34:00 Test Item Value Reference Range Interpretation Comments UA Protein (test code = Trace *ABN*(02/02/21 UA Protein) 12:34 PM) [facility] AND [id number] 17:34:00 Test Item Value Reference Range Interpretation Comments UA Glucose (test code Negative (02/02/21 12:34 = UA Glucose) PM) [facility] AND [id number] 17:34:00 Test Item Value Reference Range Interpretation Comments UA Ketones (test code = UA Ketones) 15 mg/dL [facility] AND [id number] 17:34:00 Test Item Value Reference Range Interpretation Comments UA Bili (test code = Small *ABN*(02/02/21 UA Bili) 12:34 PM) [facility] AND [id number] 17:34:00 Test Item Value Reference Range Interpretation Comments UA Blood (test code = Negative (02/02/21 12:34 UA Blood) PM) [facility] [id number] 17:34:00 Test Item Value Reference Range Interpretation Comments UA Urobilinogen (test code = UA 1.0 0.1-1.0 Urobilinogen) [facility] [id number] 17:34:00 Test Item Value Reference Range Interpretation Comments UA Nitrite (test code Negative (02/02/21 12:34 = UA Nitrite) PM) [facility] [id number] 17:34:00 Test Item Value Reference Range Interpretation Comments UA Leuk Est (test Moderate *ABN*(02/02/21 code = UA Leuk Est) 12:34 PM) [facility] [id number] 17:34:00 Test Item Value Reference Range Interpretation Comments UA Sq Epi (test code = UA Sq Moderate /LPF Epi) [facility] [id number] 17:34:00 Test Item Value Reference Range Interpretation Comments UA WBC (test code = UA WBC) 51-100 /HPF [facility] [id number] 17:34:00 Test Item Value Reference Range Interpretation Comments UA RBC (test code = UA RBC) 0-2 /HPF [facility] AND [id number] 17:34:00 Test Item Value Reference Range Interpretation Comments UA Bacteria (test code = UA Moderate /HPF Bacteria) [facility] [id number] 17:34:00 Test Item Value Reference Range Interpretation Comments UA Mucus (test code = UA Mucus) Moderate /LPF [facility]ann[facility]: [id number] 17:34:00 Test Item Value Reference Range Interpretation Comments Culture: Urine 10,000 - 50,000 CFU/mL Gram (test code = Negative Rods . Culture: Urine) Identification And Sensitivity [facility]ending [facility] [id number] 09:12:00 RUN DATE: 10/09/18 [facility] *LIVE* PAGE 1 RUN TIME: 911 Specimen Inquiry RUN USER: INTERFACE --------- ---PATIENT: KAYY ORELLANA LOC: EULOGIO U #: [id number] AGE/SX: ROOM: RE10[facility]02/[facility] DR: Fede Lieberman MD : 00 BED: DIS: STATUS: DEP [facility] TLOC: SPEC #: [id number] RECD: 10/02/18 STATUS: NOEMY ART #: [id number] RACHEL: 10/02/18 [facility] DR: Fede Lieberman MD ENTERED: 10/06/18 SP TYPE: SURG SPEC OTHR DR: Osmar Portillo DO ORDERED: GM LEVEL 4 CODES: [id number] - STOMACH, NOS [id number] - SMALL INTESTINE COPIES [place]: [place] [address] [place] [address] [email or web address] Fede Lieberman MD [address] [place] [address] [id number] [place] [address] PROCEDURES: GM LEVEL 4 (Incomplete) TISSUES: 1. SMALL INTESTINE, NOS - Small intestine, duodenum, bx. 2. STOMACH, NOS - Stomach, antrum ,bx. FINAL DIAGNOSIS Small intestine, duodenum, bx.: Intact villous architecture,no evidence of celiac sprue. Stomach, antrum, bx.: Mild chronic gastritis, no Helicobacter organismsidentified. GROSS AND MICROSCOPIC GROSS EXAMINATION: Received in formalin labeled duodenum biopsy are 3 friedman tissue fragments measuring up to 0.3 cm submitted in one cassette (A). Received in formalin labeled antrum biopsy are 3 friedman tissue fragments measuring up to 0.3 cm (B). MICROSCOPIC EXAMINATION:Sections of the duodenum reveal intact villous architecture. The lamina propria contains a mild chronic inflammatory infiltrate. Sections of the gastric biopsy show changes of mild chronic gastritis. The CONTINUED ON NEXT PAGE RUN DATE: 10/09/18 [facility] *LIVE* PAGE 2 RUN TIME: 911 Specimen Inquiry RUN USER: INTERFACE SPEC #: [id number] PATIENT: KAYY ORELLANA #[id number] (Continued) GROSS AND MICROSCOPIC(Continued) lamina propria contains a mild inflammatory infiltrate. The Alcian blue/PAS stain does not show goblet cell metaplasia. The immunostain for Helicobacter organisms is negative. (When specialstains have been reviewed, the appropriate positive/negative controls have been reviewed and are appropriately positive/negative). POST-OP DIAGNOSIS EGD-hiatal hernia PRE-OP DIAGNOSIS Blood in stool, GERD Signed SIGNATURE ON FILE Dom Coles DO 10/09/18911 END OF REPORT HEMATOLOGY 2018-09-24 23:46:00 Test Item Value Reference Range Interpretation Comments PTT (test code = PTT) 26.7 s 22.9-35.8 [facility]lgqFAYTCHUWSO2933-23-46 23:46:00 Test Item Value Reference Range Interpretation Comments PT (test code = PT) 13.6 s 12.0-14.7 [facility] CenterCncbnsgBVODTUEMGZ6788-08-12 23:46:00 Test Item Value Reference Range Interpretation Comments INR (test code = INR) 1.04 1 0.85-1.17 [facility] AND [id number] 23:46:00 Test Item Value Reference Range Interpretation Comments UA Nitrite (test code Negative (09/24/18 5:46 = UA Nitrite) PM) [facility] AND [id number] 23:46:00 Test Item Value Reference Range Interpretation Comments UA Leuk Est (test code Small *ABN*(09/24/18 = UA Leuk Est) 5:46 PM) [facility] AND [id number] 23:46:00 Test Item Value Reference Range Interpretation Comments UA Blood (test code = Large *ABN*(09/24/18 UA Blood) 5:46 PM) [facility] AND [id number] 23:46:00 Test Item Value Reference Range Interpretation Comments UA Urobilinogen (test code = UA 0.2 0.1-1.0 Urobilinogen) [facility] AND [id number] 23:46:00 Test Item Value Reference Range Interpretation Comments UA Ketones (test code Negative *NA*(09/24/18 = UA Ketones) 5:46 PM) [facility] AND [id number] 23:46:00 Test Item Value Reference Range Interpretation Comments UA Bili (test code = Negative *NA*(09/24/18 UA Bili) 5:46 PM) [facility] AND [id number] 23:46:00 Test Item Value Reference Range Interpretation Comments UA Spec Grav (test >=1.030 *ABN*(09/24/18 code = UA Spec Grav) 5:46 PM) [facility] AND [id number] 23:46:00 Test Item Value Reference Range Interpretation Comments UA Glucose (test code Negative (09/24/18 5:46 = UA Glucose) PM) [facility] AND [id number] 23:46:00 Test Item Value Reference Range Interpretation Comments UA pH (test code = UA pH) 6.0 1 5.0-8.0 [facility] AND [id number] 23:46:00 Test Item Value Reference Range Interpretation Comments UA Turbidity (test code Cloudy *ABN*(09/24/18 = UA Turbidity) 5:46 PM) [facility] AND [id number] 23:46:00 Test Item Value Reference Range Interpretation Comments UA Protein (test code Negative (09/24/18 5:46 = UA Protein) PM) [facility] AND [id number] 23:46:00 Test Item Value Reference Range Interpretation Comments UA Color (test code = Yellow *NA*(09/24/18 UA Color) 5:46 PM) [facility] AND [id number] 23:46:00 Test Item Value Reference Range Interpretation Comments UA WBC (test code = UA WBC) 3-5 /HPF [facility] AND [id number] 23:46:00 Test Item Value Reference Range Interpretation Comments UA Sq Epi (test code = UA Sq Epi) Many /LPF [facility] AND [id number] 23:46:00 Test Item Value Reference Range Interpretation Comments UA Mucus (test code = UA Mucus) Many /LPF [facility] AND [id number] 23:46:00 Test Item Value Reference Range Interpretation Comments UA Bacteria (test code = UA Many /HPF Bacteria) [facility] AND [id number] 23:46:00 Test Item Value Reference Range Interpretation Comments UA RBC (test code = 3-5 /HPF See_Comment [Automa perico message] The UA RBC) system which ge nerated this result tra nsmitted reference range : <=2. The reference range was not used to interpr et this result as sincere l/abnormal. [facility] [id number] 23:46:00 Test Item Value Reference Range Interpretation Comments U Preg (test code = U Negative (09/24/18 5:46 Preg) PM) [facility] CenterCpytvkkBEQPQVRPJI3357-88-68 23:46:00 Test Item Value Reference Range Interpretation Comments PTT (test code = PTT) 26.7 s 22.9-35.8 [facility] CenterWocbdjnBMXATSBMHU1106-88-78 23:46:00 Test Item Value Reference Range Interpretation Comments PT (test code = PT) 13.6 s 12.0-14.7 [facility]neyOivmadxANCARVOVSJ8101-79-27 23:46:00 Test Item Value Reference Range Interpretation Comments INR (test code = INR) 1.04 1 0.85-1.17 [facility] AND [id number] 23:46:00 Test Item Value Reference Range Interpretation Comments UA Nitrite (test code Negative (09/24/18 5:46 = UA Nitrite) PM) [facility] AND [id number] 23:46:00 Test Item Value Reference Range Interpretation Comments UA Leuk Est (test code Small *ABN*(09/24/18 = UA Leuk Est) 5:46 PM) [facility] AND [id number] 23:46:00 Test Item Value Reference Range Interpretation Comments UA Blood (test code = Large *ABN*(09/24/18 UA Blood) 5:46 PM) [facility] AND [id number] 23:46:00 Test Item Value Reference Range Interpretation Comments UA Urobilinogen (test code = UA 0.2 0.1-1.0 Urobilinogen) [facility] AND [id number] 23:46:00 Test Item Value Reference Range Interpretation Comments UA Ketones (test code Negative *NA*(09/24/18 = UA Ketones) 5:46 PM) [facility] AND [id number] 23:46:00 Test Item Value Reference Range Interpretation Comments UA Bili (test code = Negative *NA*(09/24/18 UA Bili) 5:46 PM) [facility] AND [id number] 23:46:00 Test Item Value Reference Range Interpretation Comments UA Spec Grav (test >=1.030 *ABN*(09/24/18 code = UA Spec Grav) 5:46 PM) [facility] AND [id number] 23:46:00 Test Item Value Reference Range Interpretation Comments UA Glucose (test code Negative (09/24/18 5:46 = UA Glucose) PM) [facility] AND [id number] 23:46:00 Test Item Value Reference Range Interpretation Comments UA pH (test code = UA pH) 6.0 1 5.0-8.0 [facility] AND [id number] 23:46:00 Test Item Value Reference Range Interpretation Comments UA Turbidity (test code Cloudy *ABN*(09/24/18 = UA Turbidity) 5:46 PM) [facility] AND [id number] 23:46:00 Test Item Value Reference Range Interpretation Comments UA Protein (test code Negative (09/24/18 5:46 = UA Protein) PM) [facility] AND [id number] 23:46:00 Test Item Value Reference Range Interpretation Comments UA Color (test code = Yellow *NA*(09/24/18 UA Color) 5:46 PM) [facility] AND [id number] 23:46:00 Test Item Value Reference Range Interpretation Comments UA WBC (test code = UA WBC) 3-5 /HPF [facility] [id number] 23:46:00 Test Item Value Reference Range Interpretation Comments UA Sq Epi (test code = UA Sq Epi) Many /LPF [facility] [id number] 23:46:00 Test Item Value Reference Range Interpretation Comments UA Mucus (test code = UA Mucus) Many /LPF [facility] AND [id number] 23:46:00 Test Item Value Reference Range Interpretation Comments UA Bacteria (test code = UA Many /HPF Bacteria) [facility] AND [id number] 23:46:00 Test Item Value Reference Range Interpretation Comments UA RBC (test code = 3-5 /HPF See_Comment [Automa perico message] The UA RBC) system which ge nerated this result tra nsmitted reference range : <=2. The reference range was not used to interpr et this result as sincere l/abnormal. [facility] [id number] 23:46:00 Test Item Value Reference Range Interpretation Comments U Preg (test code = U Negative (09/24/18 5:46 Preg) PM) [facility] [id number] 23:46:00 Test Item Value Reference Range Interpretation Comments PTT (test code = PTT) 26.7 s 22.9-35.8 [facility] LxoegsoVDQCRFMKTA5468-24-35 23:46:00 Test Item Value Reference Range Interpretation Comments PT (test code = PT) 13.6 s 12.0-14.7 [facility] [id number] 23:46:00 Test Item Value Reference Range Interpretation Comments INR (test code = INR) 1.04 1 0.85-1.17 [facility] AND [id number] 23:46:00 Test Item Value Reference Range Interpretation Comments UA Nitrite (test code Negative (09/24/18 5:46 = UA Nitrite) PM) [facility] [id number] 23:46:00 Test Item Value Reference Range Interpretation Comments UA Leuk Est (test code Small *ABN*(09/24/18 = UA Leuk Est) 5:46 PM) [facility] AND [id number] 23:46:00 Test Item Value Reference Range Interpretation Comments UA Blood (test code = Large *ABN*(09/24/18 UA Blood) 5:46 PM) [facility] AND [id number] 23:46:00 Test Item Value Reference Range Interpretation Comments UA Urobilinogen (test code = UA 0.2 0.1-1.0 Urobilinogen) [facility] AND [id number] 23:46:00 Test Item Value Reference Range Interpretation Comments UA Ketones (test code Negative *NA*(09/24/18 = UA Ketones) 5:46 PM) [facility] AND [id number] 23:46:00 Test Item Value Reference Range Interpretation Comments UA Bili (test code = Negative *NA*(09/24/18 UA Bili) 5:46 PM) [facility] AND [id number] 23:46:00 Test Item Value Reference Range Interpretation Comments UA Spec Grav (test >=1.030 *ABN*(09/24/18 code = UA Spec Grav) 5:46 PM) [facility] AND [id number] 23:46:00 Test Item Value Reference Range Interpretation Comments UA Glucose (test code Negative (09/24/18 5:46 = UA Glucose) PM) [facility] AND [id number] 23:46:00 Test Item Value Reference Range Interpretation Comments UA pH (test code = UA pH) 6.0 1 5.0-8.0 [facility] AND [id number] 23:46:00 Test Item Value Reference Range Interpretation Comments UA Turbidity (test code Cloudy *ABN*(09/24/18 = UA Turbidity) 5:46 PM) [facility] AND [id number] 23:46:00 Test Item Value Reference Range Interpretation Comments UA Protein (test code Negative (09/24/18 5:46 = UA Protein) PM) [facility] AND [id number] 23:46:00 Test Item Value Reference Range Interpretation Comments UA Color (test code = Yellow *NA*(09/24/18 UA Color) 5:46 PM) [facility] AND [id number] 23:46:00 Test Item Value Reference Range Interpretation Comments UA WBC (test code = UA WBC) 3-5 /HPF [facility] AND [id number] 23:46:00 Test Item Value Reference Range Interpretation Comments UA Sq Epi (test code = UA Sq Epi) Many /LPF [facility] [id number] 23:46:00 Test Item Value Reference Range Interpretation Comments UA Mucus (test code = UA Mucus) Many /LPF [facility] [id number] 23:46:00 Test Item Value Reference Range Interpretation Comments UA Bacteria (test code = UA Many /HPF Bacteria) [facility] AND [id number] 23:46:00 Test Item Value Reference Range Interpretation Comments UA RBC (test code = 3-5 /HPF See_Comment [Automa perico message] The UA RBC) system which ge nerated this result tra nsmitted reference range : <=2. The reference range was not used to interpr et this result as sincere l/abnormal. [facility] [id number] 23:46:00 Test Item Value Reference Range Interpretation Comments U Preg (test code = U Negative (09/24/18 5:46 Preg) PM) [facility] CenterKcydndtJTLLGQCZDB9383-09-74 23:33:00 Test Item Value Reference Range Interpretation Comments Hgb (test code = Hgb) 14.5 12.0-16.0 [facility] [id number] 23:33:00 Test Item Value Reference Range Interpretation Comments RBC (test code = RBC) 4.84 4.20-5.40 [facility] CenterVqsbhlgVNICGOAPVO6964-05-12 23:33:00 Test Item Value Reference Range Interpretation Comments MCH (test code = MCH) 30.0 pg 27.0-31.0 [facility] [id number] 23:33:00 Test Item Value Reference Range Interpretation Comments Phosphorus (test code = Phosphorus) 4.1 2.5-4.5 [facility] [id number] 23:33:00 Test Item Value Reference Range Interpretation Comments Magnesium Lvl (test code = Magnesium 1.9 1.8-2.4 Lvl) [facility] [id number] 23:33:00 Test Item Value Reference Range Interpretation Comments Lipase Lvl (test code = Lipase Lvl) 109 73-393 [facility] [id number] 23:33:00 Test Item Value Reference Range Interpretation Comments A/G Ratio (test code = A/G Ratio) 1.0 1 0.7-1.6 [facility]2018-11-12 23:33:00 Test Item Value Reference Range Interpretation Comments Globulin (test code = Globulin) 4.0 2.7-4.2 [facility]2018-11-12 23:33:00 Test Item Value Reference Range Interpretation Comments AGAP (test code = AGAP) 13.7 10.0-20.0 [facility]2018-11-12 23:33:00 Test Item Value Reference Range Interpretation Comments B/C Ratio (test code = B/C Ratio) 11 1 6-25 [place] [id number] 23:33:00 Test Item Value Reference Range Interpretation Comments Bili Total (test code = Bili Total) 0.7 0.2-1.3 [place] [id number] 23:33:00 Test Item Value Reference Range Interpretation Comments Alk Phos (test code = Alk Phos) 142 39-136 [facility]2018-11-12 23:33:00 Test Item Value Reference Range Interpretation Comments ALT (test code = ALT) 34 See_Comment [Auto mated message] The system which ge nerated this result transmit perico reference range : <=65. The reference range was not used to interpr et this result as sincere l/abnormal. [facility]2018-11-12 23:33:00 Test Item Value Reference Range Interpretation Comments AST (test code = AST) 22 See_Comment [Auto mated message] The system which ge nerated this result transmit perico reference range : <=37. The reference range was not used to interpr et this result as sincere l/abnormal. [facility]2018-11-12 23:33:00 Test Item Value Reference Range Interpretation Comments Albumin Lvl (test code = Albumin Lvl) 3.9 3.5-5.0 [facility]2018-11-12 23:33:00 Test Item Value Reference Range Interpretation Comments Total Protein (test code = Total 7.9 6.4-8.4 Protein) [place] [id number] 23:33:00 Test Item Value Reference Range Interpretation Comments eGFR (test code = eGFR) 131 [facility]2018-11-12 23:33:00 Test Item Value Reference Range Interpretation Comments Calcium Lvl (test code = Calcium Lvl) 9.1 8.5-10.5 [facility]2018-11-12 23:33:00 Test Item Value Reference Range Interpretation Comments CO2 (test code = CO2) 24 24-32 [facility]2018-11-12 23:33:00 Test Item Value Reference Range Interpretation Comments Chloride Lvl (test code = Chloride Lvl) 104 95-109 [facility]2018-11-12 23:33:00 Test Item Value Reference Range Interpretation Comments Potassium Lvl (test code = Potassium 3.7 3.5-5.1 Lvl) [facility]2018-11-12 23:33:00 Test Item Value Reference Range Interpretation Comments Sodium Lvl (test code = Sodium Lvl) 138 135-145 [facility]2018-11-12 23:33:00 Test Item Value Reference Range Interpretation Comments Glucose Lvl (test code = Glucose Lvl) 81 70-99 [facility]2018-11-12 23:33:00 Test Item Value Reference Range Interpretation Comments Creatinine Lvl (test code = Creatinine 0.63 0.50-1.40 Lvl) [facility]2018-11-12 23:33:00 Test Item Value Reference Range Interpretation Comments BUN (test code = BUN) 7 7-22 [facility]neyYqfsvzpFFSTHECVWQ3671-38-20 23:33:00 Test Item Value Reference Range Interpretation Comments Basophils # (test code 0.1 See_Comment [Aut omated message] The = Basophils #) system which generated this result tra nsmitted reference range : <=0.2. The reference r malcolm was not used to int erpret this result as normal/abnormal . [facility] McKinneyUqtcwisEIWBSJZWUR6384-38-47 23:33:00 Test Item Value Reference Range Interpretation Comments Monocytes # (test code 0.5 See_Comment [Aut omated message] The = Monocytes #) system which generated this result tra nsmitted reference range : <=0.8. The reference r malcolm was not used to int erpret this result as normal/abnormal . [place] [id number] 23:33:00 Test Item Value Reference Range Interpretation Comments Eosinophils # (test code 0.3 See_Comment [A utomated message] The = Eosinophils #) system whic h generated this result tra nsmitted reference range : <=0.5. The reference r malcolm was not used to int erpret this result as normal/abnormal . [facility] McKinneyKljvcsrSAMNQIUKRR2234-26-17 23:33:00 Test Item Value Reference Range Interpretation Comments Lymphocytes # (test code = Lymphocytes 2.3 1.0-5.5 #) [facility] McKinneyEeitgkdIDFWHACKAE8682-12-67 23:33:00 Test Item Value Reference Range Interpretation Comments Basophils (test code = 0.9 See_Comment [Aut omated message] The Basophils) system which ge nerated this result tra nsmitted reference range : <=1.0. The reference r malcolm was not used to int erpret this result as normal/abnormal . [facility] McKinneyFvxqxhdBNLWXZWCEM9634-32-98 23:33:00 Test Item Value Reference Range Interpretation Comments Lymphocytes (test code = Lymphocytes) 27.9 20.0-40.0 [facility] McKinneyMlkerfwLXEOZKLWUF1629-77-86 23:33:00 Test Item Value Reference Range Interpretation Comments Neutrophils # (test code = Neutrophils 4.9 1.5-8.1 #) [facility] McKinneyTyymfhqLTNYBEJQZU3996-67-37 23:33:00 Test Item Value Reference Range Interpretation Comments Monocytes (test code = Monocytes) 6.4 2.0-12.0 [facility] McKinneyIdwtoclABECMUWWHX1743-13-26 23:33:00 Test Item Value Reference Range Interpretation Comments Eosinophils (test code = 4.1 See_Comment [A utomated message] The Eosinophils) system which ge nerated this result tra nsmitted reference range : <=4.0. The reference r malcolm was not used to int erpret this result as normal/abnormal . [facility] McKinneySjkfamxEERWJFJXKA9579-85-75 23:33:00 Test Item Value Reference Range Interpretation Comments Segs (test code = Segs) 60.7 45.0-75.0 [facility] McKinneyAuvoqdiYCBCBWDHQW8504-83-93 23:33:00 Test Item Value Reference Range Interpretation Comments RDW (test code = RDW) 12.7 11.5-14.5 [facility] McKinneyCuaurnvVBKDTGUDSZ7040-62-89 23:33:00 Test Item Value Reference Range Interpretation Comments MCHC (test code = MCHC) 34.2 32.0-36.0 [facility] McKinneyTqotrheWGCYZEHXHB5881-04-81 23:33:00 Test Item Value Reference Range Interpretation Comments Platelet (test code = Platelet) 204 133-450 [facility] McKinneyAcyhngdBHPWMGSBGV3053-96-12 23:33:00 Test Item Value Reference Range Interpretation Comments MPV (test code = MPV) 9.1 7.4-10.4 [facility] McKinneyMhoqjjdADNTZESWVU0170-04-16 23:33:00 Test Item Value Reference Range Interpretation Comments WBC (test code = WBC) 8.1 3.7-10.4 [facility] McKinneyHzisgdeNFEVCRLAKP0529-07-37 23:33:00 Test Item Value Reference Range Interpretation Comments Hct (test code = Hct) 42.5 36.0-48.0 [facility] McKinneyBsezcoiMKTLJKAESY5910-48-80 23:33:00 Test Item Value Reference Range Interpretation Comments MCV (test code = MCV) 87.8 80.0-98.0 [facility] McKinneyHwontkfRFGNPFHXBE8467-40-81 23:33:00 Test Item Value Reference Range Interpretation Comments Hgb (test code = Hgb) 14.5 12.0-16.0 [facility] McKinneyRsfqmmkCCSAJRQODV7208-61-13 23:33:00 Test Item Value Reference Range Interpretation Comments RBC (test code = RBC) 4.84 4.20-5.40 [facility] McKinneyVdogcgcOCGMIPRXDQ0024-65-09 23:33:00 Test Item Value Reference Range Interpretation Comments MCH (test code = MCH) 30.0 pg 27.0-31.0 [facility]2018-11-12 23:33:00 Test Item Value Reference Range Interpretation Comments Phosphorus (test code = Phosphorus) 4.1 2.5-4.5 [facility]2018-11-12 23:33:00 Test Item Value Reference Range Interpretation Comments Magnesium Lvl (test code = Magnesium 1.9 1.8-2.4 Lvl) [facility]2018-11-12 23:33:00 Test Item Value Reference Range Interpretation Comments Lipase Lvl (test code = Lipase Lvl) 109 73-393 [facility]2018-11-12 23:33:00 Test Item Value Reference Range Interpretation Comments A/G Ratio (test code = A/G Ratio) 1.0 1 0.7-1.6 [facility]2018-11-12 23:33:00 Test Item Value Reference Range Interpretation Comments Globulin (test code = Globulin) 4.0 2.7-4.2 [facility]2018-11-12 23:33:00 Test Item Value Reference Range Interpretation Comments AGAP (test code = AGAP) 13.7 10.0-20.0 [facility]2018-11-12 23:33:00 Test Item Value Reference Range Interpretation Comments B/C Ratio (test code = B/C Ratio) 11 1 6-25 [place] 467948-11-12 23:33:00 Test Item Value Reference Range Interpretation Comments Bili Total (test code = Bili Total) 0.7 0.2-1.3 [facility]2018-11-12 23:33:00 Test Item Value Reference Range Interpretation Comments Alk Phos (test code = Alk Phos) 142 39-136 [facility]2018-11-12 23:33:00 Test Item Value Reference Range Interpretation Comments ALT (test code = ALT) 34 See_Comment [Auto mated message] The system which ge nerated this result transmit perico reference range : <=65. The reference range was not used to interpr et this result as sincere l/abnormal. [facility]2018-11-12 23:33:00 Test Item Value Reference Range Interpretation Comments AST (test code = AST) 22 See_Comment [Auto mated message] The system which ge nerated this result transmit perico reference range : <=37. The reference range was not used to interpr et this result as sincere l/abnormal. [facility]2018-11-12 23:33:00 Test Item Value Reference Range Interpretation Comments Albumin Lvl (test code = Albumin Lvl) 3.9 3.5-5.0 [facility]2018-11-12 23:33:00 Test Item Value Reference Range Interpretation Comments Total Protein (test code = Total 7.9 6.4-8.4 Protein) [facility]2018-11-12 23:33:00 Test Item Value Reference Range Interpretation Comments eGFR (test code = eGFR) 131 [facility]2018-11-12 23:33:00 Test Item Value Reference Range Interpretation Comments Calcium Lvl (test code = Calcium Lvl) 9.1 8.5-10.5 [place] 467948-11-12 23:33:00 Test Item Value Reference Range Interpretation Comments CO2 (test code = CO2) 24 24-32 [place] 467948-11-12 23:33:00 Test Item Value Reference Range Interpretation Comments Chloride Lvl (test code = Chloride Lvl) 104 95-109 [place] 467948-11-12 23:33:00 Test Item Value Reference Range Interpretation Comments Potassium Lvl (test code = Potassium 3.7 3.5-5.1 Lvl) [place] 467948-11-12 23:33:00 Test Item Value Reference Range Interpretation Comments Sodium Lvl (test code = Sodium Lvl) 138 135-145 [place] 467948-11-12 23:33:00 Test Item Value Reference Range Interpretation Comments Glucose Lvl (test code = Glucose Lvl) 81 70-99 [place] 467948-11-12 23:33:00 Test Item Value Reference Range Interpretation Comments Creatinine Lvl (test code = Creatinine 0.63 0.50-1.40 Lvl) [place] 467948-11-12 23:33:00 Test Item Value Reference Range Interpretation Comments BUN (test code = BUN) 7 7-22 [place] [address]-11-12 23:33:00 Test Item Value Reference Range Interpretation Comments Basophils # (test code 0.1 See_Comment [Aut omated message] The = Basophils #) system which generated this result tra nsmitted reference range : <=0.2. The reference r malcolm was not used to int erpret this result as normal/abnormal . [facility]YgevwgsWSPVXMRPMU2855-97-69 23:33:00 Test Item Value Reference Range Interpretation Comments Monocytes # (test code 0.5 See_Comment [Aut omated message] The = Monocytes #) system which generated this result tra nsmitted reference range : <=0.8. The reference r malcolm was not used to int erpret this result as normal/abnormal . [place] [address]-11-12 23:33:00 Test Item Value Reference Range Interpretation Comments Eosinophils # (test code 0.3 See_Comment [A utomated message] The = Eosinophils #) system whic h generated this result tra nsmitted reference range : <=0.5. The reference r malcolm was not used to int erpret this result as normal/abnormal . [facility]neyDbfluigFMNRLLBKHG6783-41-14 23:33:00 Test Item Value Reference Range Interpretation Comments Lymphocytes # (test code = Lymphocytes 2.3 1.0-5.5 #) [facility]neyNllifipORVTSDPCLI4419-00-86 23:33:00 Test Item Value Reference Range Interpretation Comments Basophils (test code = 0.9 See_Comment [Aut omated message] The Basophils) system which ge nerated this result tra nsmitted reference range : <=1.0. The reference r malcolm was not used to int erpret this result as normal/abnormal . [facility]neyXiyjxyiNBTHWSLTOF4501-69-68 23:33:00 Test Item Value Reference Range Interpretation Comments Lymphocytes (test code = Lymphocytes) 27.9 20.0-40.0 [facility] McKinneyEhblzsxMKWISOPYOQ2914-39-43 23:33:00 Test Item Value Reference Range Interpretation Comments Neutrophils # (test code = Neutrophils 4.9 1.5-8.1 #) [facility] McKinneyBnridiyCHNQUWORPV0942-96-42 23:33:00 Test Item Value Reference Range Interpretation Comments Monocytes (test code = Monocytes) 6.4 2.0-12.0 [facility] McKinneySquezimTJHHNXLMSY9451-74-44 23:33:00 Test Item Value Reference Range Interpretation Comments Eosinophils (test code = 4.1 See_Comment [A utomated message] The Eosinophils) system which ge nerated this result tra nsmitted reference range : <=4.0. The reference r malcolm was not used to int erpret this result as normal/abnormal . [facility] McKinneyFdegoypAKTAJAMLIO3868-51-42 23:33:00 Test Item Value Reference Range Interpretation Comments Segs (test code = Segs) 60.7 45.0-75.0 [facility] McKinneyLljmnxwUDNZIAFOZK0977-36-68 23:33:00 Test Item Value Reference Range Interpretation Comments RDW (test code = RDW) 12.7 11.5-14.5 [facility] McKinneySzsasijPWUGRMCGQC4427-58-30 23:33:00 Test Item Value Reference Range Interpretation Comments MCHC (test code = MCHC) 34.2 32.0-36.0 [facility]neyYxulhrqCFOGSYFMHD0313-53-51 23:33:00 Test Item Value Reference Range Interpretation Comments Platelet (test code = Platelet) 204 133-450 [facility] McKinneyBcvaqhwWMJNSAQABA9311-44-49 23:33:00 Test Item Value Reference Range Interpretation Comments MPV (test code = MPV) 9.1 7.4-10.4 [facility] McKinneyPelsqyuNRRLXEBUWR1724-24-85 23:33:00 Test Item Value Reference Range Interpretation Comments WBC (test code = WBC) 8.1 3.7-10.4 [facility] McKinneyOatwpfzHXBJDIZTII8716-04-84 23:33:00 Test Item Value Reference Range Interpretation Comments Hct (test code = Hct) 42.5 36.0-48.0 [facility] McKinneyKiuaqsrJWDBEIWMYN5655-98-49 23:33:00 Test Item Value Reference Range Interpretation Comments MCV (test code = MCV) 87.8 80.0-98.0 [facility] McKinneyVgdgzmxPKJLMUITJQ6073-42-99 23:33:00 Test Item Value Reference Range Interpretation Comments Hgb (test code = Hgb) 14.5 12.0-16.0 [facility] McKinneyZbgctfjVDDNVIIASM3314-52-86 23:33:00 Test Item Value Reference Range Interpretation Comments RBC (test code = RBC) 4.84 4.20-5.40 [facility] McKinneyVowgrzdRLPPJCVZSJ7670-52-62 23:33:00 Test Item Value Reference Range Interpretation Comments MCH (test code = MCH) 30.0 pg 27.0-31.0 [facility]2018-11-12 23:33:00 Test Item Value Reference Range Interpretation Comments Phosphorus (test code = Phosphorus) 4.1 2.5-4.5 [facility]2018-11-12 23:33:00 Test Item Value Reference Range Interpretation Comments Magnesium Lvl (test code = Magnesium 1.9 1.8-2.4 Lvl) [facility]2018-11-12 23:33:00 Test Item Value Reference Range Interpretation Comments Lipase Lvl (test code = Lipase Lvl) 109 73-393 [facility]2018-11-12 23:33:00 Test Item Value Reference Range Interpretation Comments A/G Ratio (test code = A/G Ratio) 1.0 1 0.7-1.6 [facility]2018-11-12 23:33:00 Test Item Value Reference Range Interpretation Comments Globulin (test code = Globulin) 4.0 2.7-4.2 [facility]2018-11-12 23:33:00 Test Item Value Reference Range Interpretation Comments AGAP (test code = AGAP) 13.7 10.0-20.0 [facility]2018-11-12 23:33:00 Test Item Value Reference Range Interpretation Comments B/C Ratio (test code = B/C Ratio) 11 1 6-25 [facility]2018-11-12 23:33:00 Test Item Value Reference Range Interpretation Comments Bili Total (test code = Bili Total) 0.7 0.2-1.3 [facility]2018-11-12 23:33:00 Test Item Value Reference Range Interpretation Comments Alk Phos (test code = Alk Phos) 142 39-136 [facility]2018-11-12 23:33:00 Test Item Value Reference Range Interpretation Comments ALT (test code = ALT) 34 See_Comment [Auto mated message] The system which ge nerated this result transmit perico reference range : <=65. The reference range was not used to interpr et this result as sincere l/abnormal. [facility]2018-11-12 23:33:00 Test Item Value Reference Range Interpretation Comments AST (test code = AST) 22 See_Comment [Auto mated message] The system which ge nerated this result transmit perico reference range : <=37. The reference range was not used to interpr et this result as sincere l/abnormal. [facility]2018-11-12 23:33:00 Test Item Value Reference Range Interpretation Comments Albumin Lvl (test code = Albumin Lvl) 3.9 3.5-5.0 [facility]2018-11-12 23:33:00 Test Item Value Reference Range Interpretation Comments Total Protein (test code = Total 7.9 6.4-8.4 Protein) [facility]2018-11-12 23:33:00 Test Item Value Reference Range Interpretation Comments eGFR (test code = eGFR) 131 [facility]2018-11-12 23:33:00 Test Item Value Reference Range Interpretation Comments Calcium Lvl (test code = Calcium Lvl) 9.1 8.5-10.5 [facility]2018-11-12 23:33:00 Test Item Value Reference Range Interpretation Comments CO2 (test code = CO2) 24 24-32 [place] 467948-11-12 23:33:00 Test Item Value Reference Range Interpretation Comments Chloride Lvl (test code = Chloride Lvl) 104 95-109 [facility]2018-11-12 23:33:00 Test Item Value Reference Range Interpretation Comments Potassium Lvl (test code = Potassium 3.7 3.5-5.1 Lvl) [facility]2018-11-12 23:33:00 Test Item Value Reference Range Interpretation Comments Sodium Lvl (test code = Sodium Lvl) 138 135-145 [place] 467948-11-12 23:33:00 Test Item Value Reference Range Interpretation Comments Glucose Lvl (test code = Glucose Lvl) 81 70-99 [place] 467948-11-12 23:33:00 Test Item Value Reference Range Interpretation Comments Creatinine Lvl (test code = Creatinine 0.63 0.50-1.40 Lvl) [place] 467948-11-12 23:33:00 Test Item Value Reference Range Interpretation Comments BUN (test code = BUN) 7 7-22 [place] [address]-11-12 23:33:00 Test Item Value Reference Range Interpretation Comments Basophils # (test code 0.1 See_Comment [Aut omated message] The = Basophils #) system which generated this result tra nsmitted reference range : <=0.2. The reference r malcolm was not used to int erpret this result as normal/abnormal . [facility] McKinneyEfcpizsFUIQMIJMEN7322-92-02 23:33:00 Test Item Value Reference Range Interpretation Comments Monocytes # (test code 0.5 See_Comment [Aut omated message] The = Monocytes #) system which generated this result tra nsmitted reference range : <=0.8. The reference r malcolm was not used to int erpret this result as normal/abnormal . [place] 557758-11-12 23:33:00 Test Item Value Reference Range Interpretation Comments Eosinophils # (test code 0.3 See_Comment [A utomated message] The = Eosinophils #) system whic h generated this result tra nsmitted reference range : <=0.5. The reference r malcolm was not used to int erpret this result as normal/abnormal . [place] 557758-11-12 23:33:00 Test Item Value Reference Range Interpretation Comments Lymphocytes # (test code = Lymphocytes 2.3 1.0-5.5 #) [facility] McKinneyNtlaxklYMBACPWLQY6156-38-71 23:33:00 Test Item Value Reference Range Interpretation Comments Basophils (test code = 0.9 See_Comment [Aut omated message] The Basophils) system which ge nerated this result tra nsmitted reference range : <=1.0. The reference r malcolm was not used to int erpret this result as normal/abnormal . [facility] McKinneyDnvssjhGMQTABVKIR1993-50-83 23:33:00 Test Item Value Reference Range Interpretation Comments Lymphocytes (test code = Lymphocytes) 27.9 20.0-40.0 [facility] McKinneyGzpavefRYYGURXQKW6509-43-89 23:33:00 Test Item Value Reference Range Interpretation Comments Neutrophils # (test code = Neutrophils 4.9 1.5-8.1 #) [facility] McKinneyBzczsonZVVBWBZXJD8413-84-03 23:33:00 Test Item Value Reference Range Interpretation Comments Monocytes (test code = Monocytes) 6.4 2.0-12.0 [facility] McKinneyLvtylujZJEKKILNZP2610-19-07 23:33:00 Test Item Value Reference Range Interpretation Comments Eosinophils (test code = 4.1 See_Comment [A utomated message] The Eosinophils) system which ge nerated this result tra nsmitted reference range : <=4.0. The reference r malcolm was not used to int erpret this result as normal/abnormal . [facility] McKinneyQjnhfwiIQVZYMRWAL8152-58-61 23:33:00 Test Item Value Reference Range Interpretation Comments Segs (test code = Segs) 60.7 45.0-75.0 [facility] McKinneyVdnpfqsKDEXHEVLJK6036-45-39 23:33:00 Test Item Value Reference Range Interpretation Comments RDW (test code = RDW) 12.7 11.5-14.5 [facility] McKinneyRauxlinHVZRMBSSGG1086-42-39 23:33:00 Test Item Value Reference Range Interpretation Comments MCHC (test code = MCHC) 34.2 32.0-36.0 [facility] McKinneyGkeejxbPHGLYLLZFT3761-65-68 23:33:00 Test Item Value Reference Range Interpretation Comments Platelet (test code = Platelet) 204 133-450 [facility] McKinneyLmziovjQLWDBQHEZP8880-82-88 23:33:00 Test Item Value Reference Range Interpretation Comments MPV (test code = MPV) 9.1 7.4-10.4 [facility]NS[facility]11[facility] 23:33:00 Test Item Value Reference Range Interpretation Comments WBC (test code = WBC) 8.1 3.7-10.4 [facility] McKinneyTwachlkTSXGMJXLLV5372-75-64 23:33:00 Test Item Value Reference Range Interpretation Comments Hct (test code = Hct) 42.5 36.0-48.0 [facility] McKinneyRmkwxihXVEYJGHJCK9811-78-56 23:33:00 Test Item Value Reference Range Interpretation Comments MCV (test code = MCV) 87.8 80.0-98.0 [facility]] CBC (INCLUDES DIFF/PLT)2018-07-31 15:19:01 Test Item Value Reference Range Interpretation Comments WBC (test code = 6690-2) 9.2 {K/CMM} 3.7-10.4 RBC (test code = 789-8) 4.77 {M/CMM} 4.20-5.40 Hgb (test code = 718-7) 14.2 g/dl 12.0-16.0 Hct (test code = 67224-1) 42.3 % 36.0-48.0 MCV (test code = 787-2) 88.6 fL 80.0-98.0 MCH (test code = 785-6) 29.7 pg 27.0-31.0 MCHC (test code = 786-4) 33.5 g/dl 32.0-36.0 RDW (test code = 788-0) 13.3 % 11.5-14.5 Platelet (test code = 52532-1) 233 {K/CMM} 133-450 Mean Platelet Volume (test code 9.7 fL 7.4-10.4 = 87261-3) [facility]] CMP W/HLGP4824-95-76 15:19:01 Test Item Value Reference Range Interpretation Comments Sodium Level 139 {mEq/l} 135-145 (test code = 2951-2) Potassium Level 4.0 {mEq/l} 3.5-5.1 (test code = 2823-3) Chloride Level 109 {mEq/l} 95-109 (test code = 2075-0) Carbon Dioxide; 19 {mEq/l} 24-32 Below Low Threshold (test code = 2027-) AGAP (test code = 15.0 {mEq/l} 10.0-20.0 93555-3) Glucose Lvl (test 84 mg/dl 70-99 Adult refe rence range code = 2345-7) values reflec t the clinical guidel inesof the [place] [employer] es [employer]. Creatinine Lvl 0.60 mg/dl 0.50-1.40 (test code = 2160-0) Blood Urea 10 mg/dl 7-22 Nitrogen (test code = 3094-0) BUN/Creatinine 17 6-25 Ratio (test code = 3097-3) Total Protein; 8.5 g/dl 6.4-8.4 Above High Threshold (test code = 2885-2) Albumin Lvl (test 3.9 g/dl 3.5-5.0 code = 1751-7) Globulin; Above 4.6 g/dl 2.7-4.2 High Threshold (test code = 46150-6) A/G Ratio (test 0.8 0.7-1.6 code = 1759-0) Calcium Level 9.3 mg/dl 8.5-10.5 Total (test code = 02380-4) ALT; Above High 70 u/l 0-65 Threshold (test code = 1743-4) AST (test code = 28 u/l 0-37 19128-4) Alk Phos; Above 145 u/l 39-136 High Threshold (test code = 1783-0) Bili Total (test 0.8 mg/dl 0.2-1.3 code = 1974-) eGFR (test code = 134 The eGFR i s calculated 93677-0) {ML/MIN/1.7} using the CKD-E PI formula. In [...] of body mass index for purposes of sepdieh g dosing, the eGFR should be multiplied by t he estimated BMI. [facility]] Vbcsjtjpawun2371-46-98 15:19:01 Test Item Value Reference Range Interpretation Comments Segmented Neutrophils (test code 63.3 % 45.0-75.0 = 30720-4) Monocytes (test code = 54620-7) 7.6 % 2.0-12.0 Lymphocytes (test code = 06832-6) 27.4 % 20.0-40.0 Eosinophils (test code = 89899-5) 1.2 % 0.0-4.0 Basophils (test code = 706-2) 0.5 % 0.0-1.0 Segs-Bands # (test code = 5.8 {K/CMM} 1.5-8.1 20624-5) Lymphocytes # (test code = 2.5 {K/CMM} 1.0-5.5 10580-1) Monocytes # (test code = 55853-2) 0.7 {K/CMM} 0.0-0.8 Eosinophils # (test code = 0.1 {K/CMM} 0.0-0.5 90444-7) [facility][O] Urine Dipstick (In Office)2017-12-19 11:53:00 Test Item Value Reference Range Interpretation Comments LEUKOCYTES (test code = LEUKOCYTES) neg N NITRITE; Normal (test code = 97830-7) neg N UROBILINOGEN; Normal (test code = 1.0 N 77142-5) PROTEIN; Normal (test code = 84564-6) neg N pH (test code = pH) 7.0 N URINE BLOOD; Normal (test code = neg N 93421-6) SPECIFIC GRAVITY; Normal (test code = 1.020 N 2965-2) KETONES; Normal (test code = 59853-8) neg N BILIRUBIN; Normal (test code = 27272-3) neg N GLUCOSE; Normal (test code = 1547-9) neg N [facility]iciansTobacco Use Axcxipzsm8176-85-24 15:40:00 Test Item Value Reference Range Interpretation Comments Completed (test code = Completed) DONE [facility]2017-11-30 15:42:00 Test Item Value Reference Range Interpretation Comments Lipase Lvl (test code = Lipase Lvl) 110 73-393 [facility]2017-11-30 15:42:00 Test Item Value Reference Range Interpretation Comments eGFR (test code = eGFR) See Comment [facility]2017-11-30 15:42:00 Test Item Value Reference Range Interpretation Comments Calcium Lvl (test code = Calcium Lvl) 9.0 8.5-10.5 [place] 467947-11-30 15:42:00 Test Item Value Reference Range Interpretation Comments Albumin Lvl (test code = Albumin Lvl) 3.7 3.5-5.0 [facility]2017-11-30 15:42:00 Test Item Value Reference Range Interpretation Comments ALT (test code = ALT) 22 See_Comment [Auto mated message] The system which ge nerated this result transmit perico reference range : <=65. The reference range was not used to interpr et this result as sincere l/abnormal. [facility]2017-11-30 15:42:00 Test Item Value Reference Range Interpretation Comments Total Protein (test code = Total 7.9 6.4-8.4 Protein) [facility]2017-11-30 15:42:00 Test Item Value Reference Range Interpretation Comments Alk Phos (test code = Alk Phos) 135 39-136 [facility]2017-11-30 15:42:00 Test Item Value Reference Range Interpretation Comments AST (test code = AST) 36 See_Comment [Auto mated message] The system which ge nerated this result transmit perico reference range : <=37. The reference range was not used to interpr et this result as sincere l/abnormal. [facility]2017-11-30 15:42:00 Test Item Value Reference Range Interpretation Comments Bili Total (test code = Bili Total) 0.8 0.2-1.3 [place] [address]-11-30 15:42:00 Test Item Value Reference Range Interpretation Comments Creatinine Lvl (test code = Creatinine 0.57 0.50-1.40 Lvl) [facility]2017-11-30 15:42:00 Test Item Value Reference Range Interpretation Comments Potassium Lvl (test code = Potassium 4.7 3.5-5.1 Lvl) [facility]2017-11-30 15:42:00 Test Item Value Reference Range Interpretation Comments Sodium Lvl (test code = Sodium Lvl) 139 135-145 [facility]2017-11-30 15:42:00 Test Item Value Reference Range Interpretation Comments Chloride Lvl (test code = Chloride Lvl) 108 95-109 [facility]2017-11-30 15:42:00 Test Item Value Reference Range Interpretation Comments CO2 (test code = CO2) 23 24-32 [facility]2017-11-30 15:42:00 Test Item Value Reference Range Interpretation Comments BUN (test code = BUN) 7 7-22 [facility]2017-11-30 15:42:00 Test Item Value Reference Range Interpretation Comments Glucose Lvl (test code = Glucose Lvl) 94 70-99 [facility]2017-11-30 15:42:00 Test Item Value Reference Range Interpretation Comments Globulin (test code = Globulin) 4.2 2.7-4.2 [facility]2017-11-30 15:42:00 Test Item Value Reference Range Interpretation Comments A/G Ratio (test code = A/G Ratio) 0.9 0.7-1.6 [facility]2017-11-30 15:42:00 Test Item Value Reference Range Interpretation Comments AGAP (test code = AGAP) 12.7 10.0-20.0 [facility]2017-11-30 15:42:00 Test Item Value Reference Range Interpretation Comments B/C Ratio (test code = B/C Ratio) 12 6-25 [facility]NN[facility]SCWUMNIU9529[facility]-21 15:42:00 Test Item Value Reference Range Interpretation Comments S Preg (test code = S Negative *NA*(10/12/17 Preg) 9:42 AM) [facility]neyOchfsbbWSFSVBSXKM7053-32-28 15:42:00 Test Item Value Reference Range Interpretation Comments Lymphocytes (test code = Lymphocytes) 24.1 20.0-40.0 [facility] McKinneyGgdjurtABBIEERNIP0791-47-22 15:42:00 Test Item Value Reference Range Interpretation Comments Segs (test code = Segs) 67.6 45.0-75.0 [facility] McKinneyRlkcdizOUXWBHBRGR8198-60-04 15:42:00 Test Item Value Reference Range Interpretation Comments Basophils # (test code 0.1 See_Comment [Aut omated message] The = Basophils #) system which generated this result tra nsmitted reference range : <=0.2. The reference r malcolm was not used to int erpret this result as normal/abnormal . [facility] McKinneyZccdrsgNPRPKQPVJN3217-21-38 15:42:00 Test Item Value Reference Range Interpretation Comments Segs-Bands # (test code = Segs-Bands #) 5.4 1.5-8.1 [facility] McKinneyMlyewbiLAGLJKQLKT1825-54-73 15:42:00 Test Item Value Reference Range Interpretation Comments Basophils (test code = 0.8 See_Comment [Aut omated message] The Basophils) system which ge nerated this result tra nsmitted reference range : <=1.0. The reference r malcolm was not used to int erpret this result as normal/abnormal . [facility] McKinneyTuzyfanGBBHWFCCGT5855-47-66 15:42:00 Test Item Value Reference Range Interpretation Comments Eosinophils (test code = 0.6 See_Comment [A utomated message] The Eosinophils) system which ge nerated this result tra nsmitted reference range : <=4.0. The reference r malcolm was not used to int erpret this result as normal/abnormal . [facility] McKinneyYbshknlWGXUKIBQJF5177-77-51 15:42:00 Test Item Value Reference Range Interpretation Comments Monocytes (test code = Monocytes) 6.9 2.0-12.0 [facility] McKinneyIyugudfDWQFUWLBYR8290-54-06 15:42:00 Test Item Value Reference Range Interpretation Comments Monocytes # (test code 0.6 See_Comment [Aut omated message] The = Monocytes #) system which generated this result tra nsmitted reference range : <=0.8. The reference r malcolm was not used to int erpret this result as normal/abnormal . [facility] McKinneyLdyksnoISBTTTJYHO9477-97-87 15:42:00 Test Item Value Reference Range Interpretation Comments Lymphocytes # (test code = Lymphocytes 1.9 1.0-5.5 #) [facility] McKinneyNobjcfcZOWUZZDPJL8365-53-54 15:42:00 Test Item Value Reference Range Interpretation Comments MPV (test code = MPV) 9.4 7.4-10.4 [facility] McKinneyXnviqjdFOZZWIVPDT9095-55-86 15:42:00 Test Item Value Reference Range Interpretation Comments MCHC (test code = MCHC) 34.0 32.0-36.0 [facility] McKinneyTayqrxeEAOMTPOUCN0835-40-53 15:42:00 Test Item Value Reference Range Interpretation Comments Hgb (test code = Hgb) 14.2 12.0-16.0 [facility]neyTvgzuxwMGGZHWUDDX1451-62-53 15:42:00 Test Item Value Reference Range Interpretation Comments Platelet (test code = Platelet) 181 133-450 [facility]neyRipslmvBOEGGFETRI8269-41-03 15:42:00 Test Item Value Reference Range Interpretation Comments RDW (test code = RDW) 12.6 11.5-14.5 [facility]neyTbmngyeFVBZJPZQOY9047-17-15 15:42:00 Test Item Value Reference Range Interpretation Comments RBC (test code = RBC) 4.72 4.20-5.40 [facility]neyNaakpoiWZVAZNUEWE7413-84-49 15:42:00 Test Item Value Reference Range Interpretation Comments WBC (test code = WBC) 8.0 3.7-10.4 [facility] McKinneyZgmfcfnXBFFERULWG4349-46-03 15:42:00 Test Item Value Reference Range Interpretation Comments MCH (test code = MCH) 30.0 pg 27.0-31.0 [facility] McKinneyPbosqqwESDOJYYHVV3966-19-96 15:42:00 Test Item Value Reference Range Interpretation Comments MCV (test code = MCV) 88.2 80.0-98.0 [facility] McKinneyDytifhpEHOHUVAQRY7723-30-66 15:42:00 Test Item Value Reference Range Interpretation Comments Hct (test code = Hct) 41.6 36.0-48.0 [facility]2017-11-30 15:42:00 Test Item Value Reference Range Interpretation Comments Lipase Lvl (test code = Lipase Lvl) 110 73-393 [facility]2017-11-30 15:42:00 Test Item Value Reference Range Interpretation Comments eGFR (test code = eGFR) See Comment [facility]2017-11-30 15:42:00 Test Item Value Reference Range Interpretation Comments Calcium Lvl (test code = Calcium Lvl) 9.0 8.5-10.5 [facility]2017-11-30 15:42:00 Test Item Value Reference Range Interpretation Comments Albumin Lvl (test code = Albumin Lvl) 3.7 3.5-5.0 [facility]2017-11-30 15:42:00 Test Item Value Reference Range Interpretation Comments ALT (test code = ALT) 22 See_Comment [Auto mated message] The system which ge nerated this result transmit perico reference range : <=65. The reference range was not used to interpr et this result as sincere l/abnormal. [facility]2017-11-30 15:42:00 Test Item Value Reference Range Interpretation Comments Total Protein (test code = Total 7.9 6.4-8.4 Protein) [facility]2017-11-30 15:42:00 Test Item Value Reference Range Interpretation Comments Alk Phos (test code = Alk Phos) 135 39-136 [facility]2017-11-30 15:42:00 Test Item Value Reference Range Interpretation Comments AST (test code = AST) 36 See_Comment [Auto mated message] The system which ge nerated this result transmit perico reference range : <=37. The reference range was not used to interpr et this result as sincere l/abnormal. [facility]2017-11-30 15:42:00 Test Item Value Reference Range Interpretation Comments Bili Total (test code = Bili Total) 0.8 0.2-1.3 [facility]2017-11-30 15:42:00 Test Item Value Reference Range Interpretation Comments Creatinine Lvl (test code = Creatinine 0.57 0.50-1.40 Lvl) [facility]2017-11-30 15:42:00 Test Item Value Reference Range Interpretation Comments Potassium Lvl (test code = Potassium 4.7 3.5-5.1 Lvl) [facility]2017-11-30 15:42:00 Test Item Value Reference Range Interpretation Comments Sodium Lvl (test code = Sodium Lvl) 139 135-145 [facility]2017-11-30 15:42:00 Test Item Value Reference Range Interpretation Comments Chloride Lvl (test code = Chloride Lvl) 108 95-109 [facility]2017-11-30 15:42:00 Test Item Value Reference Range Interpretation Comments CO2 (test code = CO2) 23 24-32 [facility]2017-11-30 15:42:00 Test Item Value Reference Range Interpretation Comments BUN (test code = BUN) 7 7-22 [facility]2017-11-30 15:42:00 Test Item Value Reference Range Interpretation Comments Glucose Lvl (test code = Glucose Lvl) 94 70-99 [facility]2017-11-30 15:42:00 Test Item Value Reference Range Interpretation Comments Globulin (test code = Globulin) 4.2 2.7-4.2 [facility]2017-11-30 15:42:00 Test Item Value Reference Range Interpretation Comments A/G Ratio (test code = A/G Ratio) 0.9 0.7-1.6 [facility]2017-11-30 15:42:00 Test Item Value Reference Range Interpretation Comments AGAP (test code = AGAP) 12.7 10.0-20.0 [facility]2017-11-30 15:42:00 Test Item Value Reference Range Interpretation Comments B/C Ratio (test code = B/C Ratio) 12 6-25 [place] 17884017-11-30 15:42:00 Test Item Value Reference Range Interpretation Comments S Preg (test code = S Negative *NA*(10/12/17 Preg) 9:42 AM) [facility]neyHysopciQATYVGVHLC4008-74-94 15:42:00 Test Item Value Reference Range Interpretation Comments Lymphocytes (test code = Lymphocytes) 24.1 20.0-40.0 [facility]neyNhbkrepCFYOSWQRMT8887-26-35 15:42:00 Test Item Value Reference Range Interpretation Comments Segs (test code = Segs) 67.6 45.0-75.0 [facility]neyZpteuvcFAIWEPJFBY1963-86-84 15:42:00 Test Item Value Reference Range Interpretation Comments Basophils # (test code 0.1 See_Comment [Aut omated message] The = Basophils #) system which generated this result tra nsmitted reference range : <=0.2. The reference r malcolm was not used to int erpret this result as normal/abnormal . [facility]neyTwafwojAMZZQEIAXL2210-61-90 15:42:00 Test Item Value Reference Range Interpretation Comments Segs-Bands # (test code = Segs-Bands #) 5.4 1.5-8.1 [facility]neyQhamuwzFLTJWBLRGD3531-23-15 15:42:00 Test Item Value Reference Range Interpretation Comments Basophils (test code = 0.8 See_Comment [Aut omated message] The Basophils) system which ge nerated this result tra nsmitted reference range : <=1.0. The reference r malcolm was not used to int erpret this result as normal/abnormal . [facility]neyUaslmxrTCMIAJIVYL1369-24-48 15:42:00 Test Item Value Reference Range Interpretation Comments Eosinophils (test code = 0.6 See_Comment [A utomated message] The Eosinophils) system which ge nerated this result tra nsmitted reference range : <=4.0. The reference r malcolm was not used to int erpret this result as normal/abnormal . [facility]neyFlaeyjfWLMNMJDPGS8719-89-15 15:42:00 Test Item Value Reference Range Interpretation Comments Monocytes (test code = Monocytes) 6.9 2.0-12.0 [facility] McKinneyOyoghrsMCEMNIXUGC7793-15-35 15:42:00 Test Item Value Reference Range Interpretation Comments Monocytes # (test code 0.6 See_Comment [Aut omated message] The = Monocytes #) system which generated this result tra nsmitted reference range : <=0.8. The reference r malcolm was not used to int erpret this result as normal/abnormal . [facility]neyOeojsxhYHVJDSFHUG4641-56-75 15:42:00 Test Item Value Reference Range Interpretation Comments Lymphocytes # (test code = Lymphocytes 1.9 1.0-5.5 #) [facility]neyNbdjbfzHUGXEAPDSD7954-68-40 15:42:00 Test Item Value Reference Range Interpretation Comments MPV (test code = MPV) 9.4 7.4-10.4 [facility] McKinneyXeytadhDCSHCOLEXX2384-96-93 15:42:00 Test Item Value Reference Range Interpretation Comments MCHC (test code = MCHC) 34.0 32.0-36.0 [facility]neyQinrbmtIGGCKPGPNN9995-71-70 15:42:00 Test Item Value Reference Range Interpretation Comments Hgb (test code = Hgb) 14.2 12.0-16.0 [facility]neyYphxpgbBKRXUBHTMW1493-14-64 15:42:00 Test Item Value Reference Range Interpretation Comments Platelet (test code = Platelet) 181 133-450 [facility] McKinneyTxrvpqzZSGJLWUQGB9098-52-41 15:42:00 Test Item Value Reference Range Interpretation Comments RDW (test code = RDW) 12.6 11.5-14.5 [facility]neyHcqimqsXMMBXKTUFX5777-45-15 15:42:00 Test Item Value Reference Range Interpretation Comments RBC (test code = RBC) 4.72 4.20-5.40 [facility] McKinneyRdxtjtbZUNJJNYPBH7491-76-32 15:42:00 Test Item Value Reference Range Interpretation Comments WBC (test code = WBC) 8.0 3.7-10.4 [facility] McKinneyDtdijdzJJUDBSNBGH1473-61-47 15:42:00 Test Item Value Reference Range Interpretation Comments MCH (test code = MCH) 30.0 pg 27.0-31.0 [facility] McKinneyWrcknerROALFTDQPX0616-98-63 15:42:00 Test Item Value Reference Range Interpretation Comments MCV (test code = MCV) 88.2 80.0-98.0 [facility] McKinneyPafunllKCBNOINKVE1060-46-11 15:42:00 Test Item Value Reference Range Interpretation Comments Hct (test code = Hct) 41.6 36.0-48.0 [facility]2017-11-30 15:42:00 Test Item Value Reference Range Interpretation Comments Lipase Lvl (test code = Lipase Lvl) 110 73-393 [facility]2017-11-30 15:42:00 Test Item Value Reference Range Interpretation Comments eGFR (test code = eGFR) See Comment [facility]2017-11-30 15:42:00 Test Item Value Reference Range Interpretation Comments Calcium Lvl (test code = Calcium Lvl) 9.0 8.5-10.5 [facility]2017-11-30 15:42:00 Test Item Value Reference Range Interpretation Comments Albumin Lvl (test code = Albumin Lvl) 3.7 3.5-5.0 [facility]2017-11-30 15:42:00 Test Item Value Reference Range Interpretation Comments ALT (test code = ALT) 22 See_Comment [Auto mated message] The system which ge nerated this result transmit perico reference range : <=65. The reference range was not used to interpr et this result as sincere l/abnormal. [facility]2017-11-30 15:42:00 Test Item Value Reference Range Interpretation Comments Total Protein (test code = Total 7.9 6.4-8.4 Protein) [facility]2017-11-30 15:42:00 Test Item Value Reference Range Interpretation Comments Alk Phos (test code = Alk Phos) 135 39-136 [facility]2017-11-30 15:42:00 Test Item Value Reference Range Interpretation Comments AST (test code = AST) 36 See_Comment [Auto mated message] The system which ge nerated this result transmit perico reference range : <=37. The reference range was not used to interpr et this result as sincere l/abnormal. [facility]2017-11-30 15:42:00 Test Item Value Reference Range Interpretation Comments Bili Total (test code = Bili Total) 0.8 0.2-1.3 [facility]2017-11-30 15:42:00 Test Item Value Reference Range Interpretation Comments Creatinine Lvl (test code = Creatinine 0.57 0.50-1.40 Lvl) [facility]2017-11-30 15:42:00 Test Item Value Reference Range Interpretation Comments Potassium Lvl (test code = Potassium 4.7 3.5-5.1 Lvl) [facility]2017-11-30 15:42:00 Test Item Value Reference Range Interpretation Comments Sodium Lvl (test code = Sodium Lvl) 139 135-145 [facility]2017-11-30 15:42:00 Test Item Value Reference Range Interpretation Comments Chloride Lvl (test code = Chloride Lvl) 108 95-109 [facility]2017-11-30 15:42:00 Test Item Value Reference Range Interpretation Comments CO2 (test code = CO2) 23 24-32 [facility]2017-11-30 15:42:00 Test Item Value Reference Range Interpretation Comments BUN (test code = BUN) 7 7-22 [facility]2017-11-30 15:42:00 Test Item Value Reference Range Interpretation Comments Glucose Lvl (test code = Glucose Lvl) 94 70-99 [facility]2017-11-30 15:42:00 Test Item Value Reference Range Interpretation Comments Globulin (test code = Globulin) 4.2 2.7-4.2 [facility]2017-11-30 15:42:00 Test Item Value Reference Range Interpretation Comments A/G Ratio (test code = A/G Ratio) 0.9 0.7-1.6 [facility]2017-11-30 15:42:00 Test Item Value Reference Range Interpretation Comments AGAP (test code = AGAP) 12.7 10.0-20.0 [facility]2017-11-30 15:42:00 Test Item Value Reference Range Interpretation Comments B/C Ratio (test code = B/C Ratio) 12 6-25 [facility]VEQNWPMKVZZFF0382-39-73 15:42:00 Test Item Value Reference Range Interpretation Comments S Preg (test code = S Negative *NA*(10/12/17 Preg) 9:42 AM) [facility]neyQyulorsNQHKTXAVEB4990-38-12 15:42:00 Test Item Value Reference Range Interpretation Comments Lymphocytes (test code = Lymphocytes) 24.1 20.0-40.0 [facility]neyIwilvqbUSMIGARCQC3461-14-28 15:42:00 Test Item Value Reference Range Interpretation Comments Segs (test code = Segs) 67.6 45.0-75.0 [facility]neyXwffywfWCOALANTRP1951-39-97 15:42:00 Test Item Value Reference Range Interpretation Comments Basophils # (test code 0.1 See_Comment [Aut omated message] The = Basophils #) system which generated this result tra nsmitted reference range : <=0.2. The reference r malcolm was not used to int erpret this result as normal/abnormal . [facility]neyMmuutbwQPKXXQYPHO4029-41-39 15:42:00 Test Item Value Reference Range Interpretation Comments Segs-Bands # (test code = Segs-Bands #) 5.4 1.5-8.1 [facility]neyIdtqfvdXJIWJJTRTN0773-58-17 15:42:00 Test Item Value Reference Range Interpretation Comments Basophils (test code = 0.8 See_Comment [Aut omated message] The Basophils) system which ge nerated this result tra nsmitted reference range : <=1.0. The reference r malcolm was not used to int erpret this result as normal/abnormal . [facility]neyEndsmybIGPTDXLTER6845-30-61 15:42:00 Test Item Value Reference Range Interpretation Comments Eosinophils (test code = 0.6 See_Comment [A utomated message] The Eosinophils) system which ge nerated this result tra nsmitted reference range : <=4.0. The reference r malcolm was not used to int erpret this result as normal/abnormal . [facility]neyXdywrrnDMKJNUYHKT5048-13-61 15:42:00 Test Item Value Reference Range Interpretation Comments Monocytes (test code = Monocytes) 6.9 2.0-12.0 [facility]neyQsswstaIBJNFMCXHQ3435-68-84 15:42:00 Test Item Value Reference Range Interpretation Comments Monocytes # (test code 0.6 See_Comment [Aut omated message] The = Monocytes #) system which generated this result tra nsmitted reference range : <=0.8. The reference r malcolm was not used to int erpret this result as normal/abnormal . [facility]neyCfhkxjjJLMCYWRWNR3626-65-71 15:42:00 Test Item Value Reference Range Interpretation Comments Lymphocytes # (test code = Lymphocytes 1.9 1.0-5.5 #) [facility] McKinneyTtfynajUGSOLPOSON4538-83-31 15:42:00 Test Item Value Reference Range Interpretation Comments MPV (test code = MPV) 9.4 7.4-10.4 [facility]neyJybkfaeNJCIOBWJZA8407-91-71 15:42:00 Test Item Value Reference Range Interpretation Comments MCHC (test code = MCHC) 34.0 32.0-36.0 [facility] McKinneyFwjgupqOGAPPICCCS8147-81-06 15:42:00 Test Item Value Reference Range Interpretation Comments Hgb (test code = Hgb) 14.2 12.0-16.0 [facility] McKinneyTlsfwtgXMXTJDWFMH4561-20-06 15:42:00 Test Item Value Reference Range Interpretation Comments Platelet (test code = Platelet) 181 133-450 [facility] McKinneyQqopufxKKKKBRFTTN6756-21-09 15:42:00 Test Item Value Reference Range Interpretation Comments RDW (test code = RDW) 12.6 11.5-14.5 [facility] McKinneyZiuqtsiAFKDSHFCFX2749-54-99 15:42:00 Test Item Value Reference Range Interpretation Comments RBC (test code = RBC) 4.72 4.20-5.40 [facility] McKinneyRbnrwdxAXKYJPBUFQ5290-22-81 15:42:00 Test Item Value Reference Range Interpretation Comments WBC (test code = WBC) 8.0 3.7-10.4 [facility] McKinneyFxqwqliMIISSELYRF4987-20-57 15:42:00 Test Item Value Reference Range Interpretation Comments MCH (test code = MCH) 30.0 pg 27.0-31.0 [facility] McKinneyEndvuxzSLFUZRQEPH1935-77-07 15:42:00 Test Item Value Reference Range Interpretation Comments MCV (test code = MCV) 88.2 80.0-98.0 [facility] McKinneyHvjpplhDGUEGYGMUY4544-00-95 15:42:00 Test Item Value Reference Range Interpretation Comments Hct (test code = Hct) 41.6 36.0-48.0 [facility] AND [id number] 15:39:00 Test Item Value Reference Range Interpretation Comments UA Sq Epi (test code = UA Sq Moderate /LPF Epi) [facility] AND [id number] 15:39:00 Test Item Value Reference Range Interpretation Comments UA RBC (test code = 3 See_Comment [Automa perico message] The UA RBC) system which ge nerated this result transmit perico reference range : <=2. The reference range was not used to interpr et this result as sincere l/abnormal. [facility] AND [id number] 15:39:00 Test Item Value Reference Range Interpretation Comments UA Bacteria (test code = UA Occasional /HPF Bacteria) [facility] AND [id number] 15:39:00 Test Item Value Reference Range Interpretation Comments UA WBC (test code = 10 See_Comment [Automa perico message] The UA WBC) system which ge nerated this result transmit perico reference range : <=5. The reference range was not used to interpr et this result as sincere l/abnormal. [facility] AND [id number] 15:39:00 Test Item Value Reference Range Interpretation Comments UA Leopold Yeast (test code = UA Leopold Few /HPF Yeast) [facility] AND [id number] 15:39:00 Test Item Value Reference Range Interpretation Comments UA Mucus (test code = UA Mucus) Few /LPF [facility] AND [id number] 15:39:00 Test Item Value Reference Range Interpretation Comments UA Glucose (test code = UA Negative mg/dL Glucose) [facility] AND [id number] 15:39:00 Test Item Value Reference Range Interpretation Comments UA Protein (test code = UA Negative mg/dL Protein) [facility] AND [id number] 15:39:00 Test Item Value Reference Range Interpretation Comments UA Ketones (test code = UA Trace mg/dL Ketones) [facility] AND [id number] 15:39:00 Test Item Value Reference Range Interpretation Comments UA Bili (test code = Negative *NA*(10/12/17 UA Bili) 9:39 AM) [facility] AND [id number] 15:39:00 Test Item Value Reference Range Interpretation Comments UA Blood (test code = Small *ABN*(10/12/17 UA Blood) 9:39 AM) [facility] AND [id number] 15:39:00 Test Item Value Reference Range Interpretation Comments UA Urobilinogen (test code = UA 2.0 0.1-1.0 Urobilinogen) [facility] AND [id number] 15:39:00 Test Item Value Reference Range Interpretation Comments UA Nitrite (test code Negative (10/12/17 9:39 = UA Nitrite) AM) [facility] AND [id number] 15:39:00 Test Item Value Reference Range Interpretation Comments UA Leuk Est (test Moderate *ABN*(10/12/17 code = UA Leuk Est) 9:39 AM) [facility] AND [id number] 15:39:00 Test Item Value Reference Range Interpretation Comments UA Turbidity (test code Slight *ABN*(10/12/17 = UA Turbidity) 9:39 AM) [facility] AND [id number] 15:39:00 Test Item Value Reference Range Interpretation Comments UA Spec Grav (test code = UA Spec Grav) 1.024 [facility] AND [id number] 15:39:00 Test Item Value Reference Range Interpretation Comments UA pH (test code = UA pH) 6.0 5.0-8.0 [facility] AND [id number] 15:39:00 Test Item Value Reference Range Interpretation Comments UA Color (test code = Yellow *NA*(10/12/17 UA Color) 9:39 AM) [facility] AND [id number] 15:39:00 Test Item Value Reference Range Interpretation Comments UA Sq Epi (test code = UA Sq Moderate /LPF Epi) [facility] AND [id number] 15:39:00 Test Item Value Reference Range Interpretation Comments UA RBC (test code = 3 See_Comment [Automa perico message] The UA RBC) system which ge nerated this result transmit perico reference range : <=2. The reference range was not used to interpr et this result as sincere l/abnormal. [facility] AND [id number] 15:39:00 Test Item Value Reference Range Interpretation Comments UA Bacteria (test code = UA Occasional /HPF Bacteria) [facility] AND [id number] 15:39:00 Test Item Value Reference Range Interpretation Comments UA WBC (test code = 10 See_Comment [Automa perico message] The UA WBC) system which ge nerated this result transmit perico reference range : <=5. The reference range was not used to interpr et this result as sincere l/abnormal. [facility] AND [id number] 15:39:00 Test Item Value Reference Range Interpretation Comments UA Leopold Yeast (test code = UA Leopold Few /HPF Yeast) [facility] AND [id number] 15:39:00 Test Item Value Reference Range Interpretation Comments UA Mucus (test code = UA Mucus) Few /LPF [facility] AND [id number] 15:39:00 Test Item Value Reference Range Interpretation Comments UA Glucose (test code = UA Negative mg/dL Glucose) [facility] AND [id number] 15:39:00 Test Item Value Reference Range Interpretation Comments UA Protein (test code = UA Negative mg/dL Protein) [facility] AND [id number] 15:39:00 Test Item Value Reference Range Interpretation Comments UA Ketones (test code = UA Trace mg/dL Ketones) [facility] AND [id number] 15:39:00 Test Item Value Reference Range Interpretation Comments UA Bili (test code = Negative *NA*(10/12/17 UA Bili) 9:39 AM) [facility] AND [id number] 15:39:00 Test Item Value Reference Range Interpretation Comments UA Blood (test code = Small *ABN*(10/12/17 UA Blood) 9:39 AM) [facility] AND [id number] 15:39:00 Test Item Value Reference Range Interpretation Comments UA Urobilinogen (test code = UA 2.0 0.1-1.0 Urobilinogen) [facility] AND [id number] 15:39:00 Test Item Value Reference Range Interpretation Comments UA Nitrite (test code Negative (10/12/17 9:39 = UA Nitrite) AM) [facility] AND [id number] 15:39:00 Test Item Value Reference Range Interpretation Comments UA Leuk Est (test Moderate *ABN*(10/12/17 code = UA Leuk Est) 9:39 AM) [facility] AND [id number] 15:39:00 Test Item Value Reference Range Interpretation Comments UA Turbidity (test code Slight *ABN*(10/12/17 = UA Turbidity) 9:39 AM) [facility] AND [id number] 15:39:00 Test Item Value Reference Range Interpretation Comments UA Spec Grav (test code = UA Spec Grav) 1.024 [facility] AND [id number] 15:39:00 Test Item Value Reference Range Interpretation Comments UA pH (test code = UA pH) 6.0 5.0-8.0 [facility] AND [id number] 15:39:00 Test Item Value Reference Range Interpretation Comments UA Color (test code = Yellow *NA*(10/12/17 UA Color) 9:39 AM) [facility] AND [id number] 15:39:00 Test Item Value Reference Range Interpretation Comments UA Sq Epi (test code = UA Sq Moderate /LPF Epi) [facility] AND [id number] 15:39:00 Test Item Value Reference Range Interpretation Comments UA RBC (test code = 3 See_Comment [Automa perico message] The UA RBC) system which ge nerated this result transmit perico reference range : <=2. The reference range was not used to interpr et this result as sincere l/abnormal. [facility] AND [id number] 15:39:00 Test Item Value Reference Range Interpretation Comments UA Bacteria (test code = UA Occasional /HPF Bacteria) [facility] AND [id number] 15:39:00 Test Item Value Reference Range Interpretation Comments UA WBC (test code = 10 See_Comment [Automa perico message] The UA WBC) system which ge nerated this result transmit perico reference range : <=5. The reference range was not used to interpr et this result as sincere l/abnormal. [facility] AND [id number] 15:39:00 Test Item Value Reference Range Interpretation Comments UA Leopold Yeast (test code = UA Leopold Few /HPF Yeast) [facility] AND [id number] 15:39:00 Test Item Value Reference Range Interpretation Comments UA Mucus (test code = UA Mucus) Few /LPF [facility] AND [id number] 15:39:00 Test Item Value Reference Range Interpretation Comments UA Glucose (test code = UA Negative mg/dL Glucose) [facility] AND [id number] 15:39:00 Test Item Value Reference Range Interpretation Comments UA Protein (test code = UA Negative mg/dL Protein) [facility] AND [id number] 15:39:00 Test Item Value Reference Range Interpretation Comments UA Ketones (test code = UA Trace mg/dL Ketones) [facility] AND [id number] 15:39:00 Test Item Value Reference Range Interpretation Comments UA Bili (test code = Negative *NA*(10/12/17 UA Bili) 9:39 AM) [facility] AND [id number] 15:39:00 Test Item Value Reference Range Interpretation Comments UA Blood (test code = Small *ABN*(10/12/17 UA Blood) 9:39 AM) [facility] AND [id number] 15:39:00 Test Item Value Reference Range Interpretation Comments UA Urobilinogen (test code = UA 2.0 0.1-1.0 Urobilinogen) [facility] AND [id number] 15:39:00 Test Item Value Reference Range Interpretation Comments UA Nitrite (test code Negative (10/12/17 9:39 = UA Nitrite) AM) [facility] AND [id number] 15:39:00 Test Item Value Reference Range Interpretation Comments UA Leuk Est (test Moderate *ABN*(10/12/17 code = UA Leuk Est) 9:39 AM) [facility] AND [id number] 15:39:00 Test Item Value Reference Range Interpretation Comments UA Turbidity (test code Slight *ABN*(10/12/17 = UA Turbidity) 9:39 AM) [facility] AND [id number] 15:39:00 Test Item Value Reference Range Interpretation Comments UA Spec Grav (test code = UA Spec Grav) 1.024 [facility] AND [id number] 15:39:00 Test Item Value Reference Range Interpretation Comments UA pH (test code = UA pH) 6.0 5.0-8.0 [facility] AND [id number] 15:39:00 Test Item Value Reference Range Interpretation Comments UA Color (test code = Yellow *NA*(10/12/17 UA Color) 9:39 AM) [facility] [id number] 03:22:00 Test Item Value Reference Range Interpretation Comments Lipase Lvl (test code = Lipase Lvl) 118 73-393 [facility]VqgdohvGNPBNUGXQMUG1261-87-10 03:22:00 Test Item Value Reference Range Interpretation Comments AGAP (test code = AGAP) 12.6 10.0-20.0 [facility] HospitalArmfdajEOZHOXXENIAV6856-70-25 03:22:00 Test Item Value Reference Range Interpretation Comments A/G Ratio (test code = A/G Ratio) 1.2 0.7-1.6 [facility] HospitalDlnsteyYUPFDLVKWTMF5587-11-08 03:22:00 Test Item Value Reference Range Interpretation Comments Globulin (test code = Globulin) 3.7 2.0-4.0 [facility] HospitalTzmruqiISYIJQNCTJTG5866-93-37 03:22:00 Test Item Value Reference Range Interpretation Comments B/C Ratio (test code = B/C Ratio) 20 6-25 [facility] HospitalAiszihwCJEOAJXDGHJE8749-74-33 03:22:00 Test Item Value Reference Range Interpretation Comments eGFR (test code = eGFR) 159 [facility] HospitalWwlbaidZYSQEWUMEZMK3369-43-31 03:22:00 Test Item Value Reference Range Interpretation Comments Sodium Lvl (test code = Sodium Lvl) 139 135-145 [facility] HospitalPwhcxvoQHLGREEDAVLZ0645-98-12 03:22:00 Test Item Value Reference Range Interpretation Comments Creatinine Lvl (test code = Creatinine 0.4 0.5-1.4 Lvl) [facility] HospitalRuiyqfsZHTAXAATYPYG3863-66-42 03:22:00 Test Item Value Reference Range Interpretation Comments BUN (test code = BUN) 8 7-22 [facility] HospitalHaclkfmUNXCYPOALBWJ9409-20-49 03:22:00 Test Item Value Reference Range Interpretation Comments Chloride Lvl (test code = Chloride Lvl) 105 95-109 [facility] HospitalVqhtjxlZRVLNTTBHOMW7568-83-20 03:22:00 Test Item Value Reference Range Interpretation Comments Potassium Lvl (test code = Potassium 3.6 3.5-5.1 Lvl) [facility] HospitalTovlzcbUSAZSCSDYDPC8284-31-68 03:22:00 Test Item Value Reference Range Interpretation Comments CO2 (test code = CO2) 25 24-32 [facility] HospitalHefvgwsFMXFYIJYSFHN5290-98-78 03:22:00 Test Item Value Reference Range Interpretation Comments Total Protein (test code = Total 8.0 6.4-8.4 Protein) [facility] HospitalCcaucojRKXOUWAAQNXZ1884-41-37 03:22:00 Test Item Value Reference Range Interpretation Comments Calcium Lvl (test code = Calcium Lvl) 9.4 8.5-10.5 [facility] HospitalKowmhkxOWPZBOZAYWVV1546-08-65 03:22:00 Test Item Value Reference Range Interpretation Comments AST (test code = AST) 17 See_Comment [Auto mated message] The system which ge nerated this result transmit perico reference range : <=37. The reference range was not used to interpr et this result as sincere l/abnormal. [facility] HospitalHjnggnuNXAWOURMBHGG3347-37-50 03:22:00 Test Item Value Reference Range Interpretation Comments Bili Total (test code = Bili Total) 1.2 0.2-1.3 [facility] HospitalWgxvfdlFZPAWPFPRATP9939-41-97 03:22:00 Test Item Value Reference Range Interpretation Comments ALT (test code = ALT) 19 See_Comment [Auto mated message] The system which ge nerated this result transmit perico reference range : <=65. The reference range was not used to interpr et this result as sincere l/abnormal. [facility] HospitalPzfwhxdUPGBETEVKUGL1837-99-16 03:22:00 Test Item Value Reference Range Interpretation Comments Albumin Lvl (test code = Albumin Lvl) 4.3 3.5-5.0 [facility] HospitalQezcfrlIUIILXGJVTKH7020-61-63 03:22:00 Test Item Value Reference Range Interpretation Comments Alk Phos (test code = Alk Phos) 142 80-406 [facility] HospitalWubjlhgADAQVSOBIUJS7624-63-18 03:22:00 Test Item Value Reference Range Interpretation Comments Glucose Lvl (test code = Glucose Lvl) 86 70-99 [facility]neyZryryizHPTTXTMXNI7999-48-22 03:22:00 Test Item Value Reference Range Interpretation Comments Segs-Bands # (test code = Segs-Bands #) 6.9 1.5-8.1 [facility]neyDjmwstsJDJEMQWHZY7464-70-16 03:22:00 Test Item Value Reference Range Interpretation Comments Lymphocytes # (test code = Lymphocytes 2.3 1.0-5.5 #) [facility]neyWqliabcADBFBCMALV4178-64-56 03:22:00 Test Item Value Reference Range Interpretation Comments Monocytes # (test code 0.6 See_Comment [Aut omated message] The = Monocytes #) system which generated this result tra nsmitted reference range : <=0.8. The reference r malcolm was not used to int erpret this result as normal/abnormal . [facility] McKinneyRskjbmoGADNDOKAXZ0232-92-05 03:22:00 Test Item Value Reference Range Interpretation Comments Lymphocytes (test code = Lymphocytes) 23.2 20.0-40.0 [facility] McKinneyUzuhfjqMVKNWOIYEE0879-82-40 03:22:00 Test Item Value Reference Range Interpretation Comments Monocytes (test code = Monocytes) 5.9 2.0-12.0 [facility]neyOhstfpgRTOTLFYBQE6750-88-06 03:22:00 Test Item Value Reference Range Interpretation Comments Eosinophils (test code = 0.4 See_Comment [A utomated message] The Eosinophils) system which ge nerated this result tra nsmitted reference range : <=4.0. The reference r malcolm was not used to int erpret this result as normal/abnormal . [facility] McKinneyYrzstprRGWSYTXHHR1883-00-55 03:22:00 Test Item Value Reference Range Interpretation Comments Basophils (test code = 0.4 See_Comment [Aut omated message] The Basophils) system which ge nerated this result tra nsmitted reference range : <=1.0. The reference r malcolm was not used to int erpret this result as normal/abnormal . [facility] McKinneyUeexttgNLYIADUEJI5376-23-22 03:22:00 Test Item Value Reference Range Interpretation Comments Segs (test code = Segs) 70.1 34.0-64.0 [facility]neyMrgioqeCMUFUJMHBD6514-08-29 03:22:00 Test Item Value Reference Range Interpretation Comments PTT (test code = PTT) 28.1 s 22.9-35.8 [facility] McKinneyTnqfmvqZCRPHGRWKN8240-48-31 03:22:00 Test Item Value Reference Range Interpretation Comments INR (test code = INR) 1.02 0.85-1.17 [facility] McKinneyWbmuohcEVEMWJPTZR0831-11-82 03:22:00 Test Item Value Reference Range Interpretation Comments PT (test code = PT) 13.4 s 12.0-14.7 [facility] McKinneyNszmqpnBLUJVNRIYZ7529-02-43 03:22:00 Test Item Value Reference Range Interpretation Comments Hgb (test code = Hgb) 13.6 12.0-16.0 [facility] McKinneyEtaudvlUAXGROVBLC1320-64-88 03:22:00 Test Item Value Reference Range Interpretation Comments Hct (test code = Hct) 40.5 36.0-48.0 [facility] McKinneyKkjzqssJWXVTFEMTD3471-96-55 03:22:00 Test Item Value Reference Range Interpretation Comments RBC (test code = RBC) 4.51 4.20-5.40 [facility] McKinneyDldggmmNBNIQBIGTL2898-14-03 03:22:00 Test Item Value Reference Range Interpretation Comments MCV (test code = MCV) 89.7 80.0-98.0 [facility] McKinneyInmrpreGMQDQEETQW3726-03-04 03:22:00 Test Item Value Reference Range Interpretation Comments WBC (test code = WBC) 9.8 3.7-10.4 [facility] McKinneyLcgpldpCWVGZYKZDI7749-54-91 03:22:00 Test Item Value Reference Range Interpretation Comments Platelet (test code = Platelet) 178 133-450 [facility] McKinneyHsajhudGLVUZMNVEF3873-37-28 03:22:00 Test Item Value Reference Range Interpretation Comments MPV (test code = MPV) 9.1 7.4-10.4 [facility] McKinneyOxrydfdBFMOLLPUGG5178-02-74 03:22:00 Test Item Value Reference Range Interpretation Comments MCHC (test code = MCHC) 33.5 32.0-36.0 [facility] McKinneyFjeuvcdVKWYWNUQZT4294-55-60 03:22:00 Test Item Value Reference Range Interpretation Comments RDW (test code = RDW) 11.7 11.5-14.5 [facility] McKinneyOuvdgmpVPXNTPFWIB2673-70-12 03:22:00 Test Item Value Reference Range Interpretation Comments MCH (test code = MCH) 30.1 pg 27.0-31.0 [facility]2015-08-06 03:22:00 Test Item Value Reference Range Interpretation Comments UA Turbidity (test code Slight Cloudy (06/17/15 = UA Turbidity) 10:22 PM) [facility] AND [id number] 03:22:00 Test Item Value Reference Range Interpretation Comments UA Spec Grav (test code = UA Spec 1.020 1 Grav) [facility] AND [id number] 03:22:00 Test Item Value Reference Range Interpretation Comments UA Urobilinogen (test code = UA 1.0 0.1-1.0 Urobilinogen) [facility] AND [id number] 03:22:00 Test Item Value Reference Range Interpretation Comments UA Nitrite (test code Negative (06/17/15 10:22 = UA Nitrite) PM) [facility] AND [id number] 03:22:00 Test Item Value Reference Range Interpretation Comments UA Blood (test code = Negative (06/17/15 10:22 UA Blood) PM) [facility] AND [id number] 03:22:00 Test Item Value Reference Range Interpretation Comments UA Protein (test code Negative (06/17/15 10:22 = UA Protein) PM) [facility] AND [id number] 03:22:00 Test Item Value Reference Range Interpretation Comments UA pH (test code = UA pH) 7.0 1 5.0-8.0 [facility] AND [id number] 03:22:00 Test Item Value Reference Range Interpretation Comments UA Ketones (test code = Trace *ABN*(06/17/15 UA Ketones) 10:22 PM) [facility] AND [id number] 03:22:00 Test Item Value Reference Range Interpretation Comments UA Bili (test code = Negative *NA*(06/17/15 UA Bili) 10:22 PM) [facility] AND [id number] 03:22:00 Test Item Value Reference Range Interpretation Comments UA Glucose (test code Negative (06/17/15 10:22 = UA Glucose) PM) [facility] AND [id number] 03:22:00 Test Item Value Reference Range Interpretation Comments UA Color (test code = Yellow *NA*(06/17/15 UA Color) 10:22 PM) [facility] AND [id number] 03:22:00 Test Item Value Reference Range Interpretation Comments UA RBC (test code = 0-2 /HPF See_Comment [Automa perico message] The UA RBC) system which ge nerated this result tra nsmitted reference range : <=2. The reference range was not used to interpr et this result as sincere l/abnormal. [facility] [id number] 03:22:00 Test Item Value Reference Range Interpretation Comments UA Bacteria (test code = UA Moderate /HPF Bacteria) [facility] [id number] 03:22:00 Test Item Value Reference Range Interpretation Comments UA Sq Epi (test code = UA Sq Epi) Few /LPF [facility] [id number] 03:22:00 Test Item Value Reference Range Interpretation Comments UA Leuk Est (test code Trace *ABN*(06/17/15 = UA Leuk Est) 10:22 PM) [facility] [id number] 03:22:00 Test Item Value Reference Range Interpretation Comments UA WBC (test code = UA WBC) 0-2 /HPF [facility] [id number] 03:22:00 Test Item Value Reference Range Interpretation Comments U Preg (test code = U Negative (06/17/15 10:22 Preg) PM) [facility]annCHE[facility] [id number] 03:22:00 Test Item Value Reference Range Interpretation Comments Lipase Lvl (test code = Lipase Lvl) 118 73-393 [facility] HzzfleuOSEUUREJDFIP8590-45-63 03:22:00 Test Item Value Reference Range Interpretation Comments AGAP (test code = AGAP) 12.6 10.0-20.0 [facility] DchozymKTXXJFLKDNLC1247-46-98 03:22:00 Test Item Value Reference Range Interpretation Comments A/G Ratio (test code = A/G Ratio) 1.2 0.7-1.6 [facility] BoanhmqIPTRREWILIZV4012-96-05 03:22:00 Test Item Value Reference Range Interpretation Comments Globulin (test code = Globulin) 3.7 2.0-4.0 [facility] PklmaznOPPFENVOOWHF8846-89-89 03:22:00 Test Item Value Reference Range Interpretation Comments B/C Ratio (test code = B/C Ratio) 20 6-25 [facility] YhidyekUMZGJKSCPKII9447-02-85 03:22:00 Test Item Value Reference Range Interpretation Comments eGFR (test code = eGFR) 159 [facility] HospitalZmgyoopYPPTGZMVCOGW0922-44-06 03:22:00 Test Item Value Reference Range Interpretation Comments Sodium Lvl (test code = Sodium Lvl) 139 135-145 [facility] HospitalQypgkstSQFLOEQCAHBW9596-94-76 03:22:00 Test Item Value Reference Range Interpretation Comments Creatinine Lvl (test code = Creatinine 0.4 0.5-1.4 Lvl) [facility] HospitalMerljgdAULZBZSAYMYM1010-38-44 03:22:00 Test Item Value Reference Range Interpretation Comments BUN (test code = BUN) 8 7-22 [facility] HospitalQopgaqcPDKANPYVDXFJ8677-85-20 03:22:00 Test Item Value Reference Range Interpretation Comments Chloride Lvl (test code = Chloride Lvl) 105 95-109 [facility] HospitalJenzskoFPBVJWATVNZS3215-96-94 03:22:00 Test Item Value Reference Range Interpretation Comments Potassium Lvl (test code = Potassium 3.6 3.5-5.1 Lvl) [facility] HospitalZliplsoMKHGMKJERSJC6202-61-14 03:22:00 Test Item Value Reference Range Interpretation Comments CO2 (test code = CO2) 25 24-32 [facility] HospitalTdkngtyIPAJGVIZOOSM5081-79-46 03:22:00 Test Item Value Reference Range Interpretation Comments Total Protein (test code = Total 8.0 6.4-8.4 Protein) [facility] HospitalSkogkleBTYGRIYWRFAG8643-37-49 03:22:00 Test Item Value Reference Range Interpretation Comments Calcium Lvl (test code = Calcium Lvl) 9.4 8.5-10.5 [facility] HospitalOvftvbgGMFPXZNQRGDE6242-96-67 03:22:00 Test Item Value Reference Range Interpretation Comments AST (test code = AST) 17 See_Comment [Auto mated message] The system which ge nerated this result transmit perico reference range : <=37. The reference range was not used to interpr et this result as sincere l/abnormal. [facility] HospitalLrmakblTRJRVXKJZKAH8586-68-36 03:22:00 Test Item Value Reference Range Interpretation Comments Bili Total (test code = Bili Total) 1.2 0.2-1.3 [facility] HospitalShohpldRUTNNONJQGND4337-31-41 03:22:00 Test Item Value Reference Range Interpretation Comments ALT (test code = ALT) 19 See_Comment [Auto mated message] The system which ge nerated this result transmit perico reference range : <=65. The reference range was not used to interpr et this result as sincere l/abnormal. [facility] HospitalBmdhzmtKLEQSFNBBRZE7802-36-07 03:22:00 Test Item Value Reference Range Interpretation Comments Albumin Lvl (test code = Albumin Lvl) 4.3 3.5-5.0 [facility] HospitalLwjlnsbPPFBFAPKLLCF8777-17-14 03:22:00 Test Item Value Reference Range Interpretation Comments Alk Phos (test code = Alk Phos) 142 80-406 [facility] HospitalObidklkIGWDBYURIQVH1750-04-07 03:22:00 Test Item Value Reference Range Interpretation Comments Glucose Lvl (test code = Glucose Lvl) 86 70-99 [facility]neyAlhsderAMFVIMGIHM9936-78-06 03:22:00 Test Item Value Reference Range Interpretation Comments Segs-Bands # (test code = Segs-Bands #) 6.9 1.5-8.1 [facility] McKinneyYqavscuMUPVAXLNUL8582-84-59 03:22:00 Test Item Value Reference Range Interpretation Comments Lymphocytes # (test code = Lymphocytes 2.3 1.0-5.5 #) [facility] McKinneyMiijeloFTCNGDGUMY2396-60-98 03:22:00 Test Item Value Reference Range Interpretation Comments Monocytes # (test code 0.6 See_Comment [Aut omated message] The = Monocytes #) system which generated this result tra nsmitted reference range : <=0.8. The reference r malcolm was not used to int erpret this result as normal/abnormal . [facility] McKinneyRxlajgoNWCAKQVYPJ1038-01-61 03:22:00 Test Item Value Reference Range Interpretation Comments Lymphocytes (test code = Lymphocytes) 23.2 20.0-40.0 [facility] McKinneyLdwktnkKHRPONKNPO0792-04-18 03:22:00 Test Item Value Reference Range Interpretation Comments Monocytes (test code = Monocytes) 5.9 2.0-12.0 [facility] McKinneyVrvpqzmCKORYLPFYD7034-97-68 03:22:00 Test Item Value Reference Range Interpretation Comments Eosinophils (test code = 0.4 See_Comment [A utomated message] The Eosinophils) system which ge nerated this result tra nsmitted reference range : <=4.0. The reference r malcolm was not used to int erpret this result as normal/abnormal . [facility] McKinneyAkojeyaAPDZVXOQNW6444-02-62 03:22:00 Test Item Value Reference Range Interpretation Comments Basophils (test code = 0.4 See_Comment [Aut omated message] The Basophils) system which ge nerated this result tra nsmitted reference range : <=1.0. The reference r malcolm was not used to int erpret this result as normal/abnormal . [facility] McKinneyGipslrvDETXGFVBBE0207-36-71 03:22:00 Test Item Value Reference Range Interpretation Comments Segs (test code = Segs) 70.1 34.0-64.0 [facility] McKinneyTyowkqxMWDFBWJOCL3632-87-66 03:22:00 Test Item Value Reference Range Interpretation Comments PTT (test code = PTT) 28.1 s 22.9-35.8 [facility] McKinneyJpzrutlRRSGPKMYXC8545-32-60 03:22:00 Test Item Value Reference Range Interpretation Comments INR (test code = INR) 1.02 0.85-1.17 [facility] McKinneyAdypyfwLYYAJJSRMA3877-89-84 03:22:00 Test Item Value Reference Range Interpretation Comments PT (test code = PT) 13.4 s 12.0-14.7 [facility] McKinneyJcxnkukEMQCAZCGXL2686-52-70 03:22:00 Test Item Value Reference Range Interpretation Comments Hgb (test code = Hgb) 13.6 12.0-16.0 [facility] McKinneyQlwwkffONXGLJDBLV2508-92-79 03:22:00 Test Item Value Reference Range Interpretation Comments Hct (test code = Hct) 40.5 36.0-48.0 [facility] McKinneyVwlyepnXDMQGYNLLC8084-98-07 03:22:00 Test Item Value Reference Range Interpretation Comments RBC (test code = RBC) 4.51 4.20-5.40 [facility] McKinneyFdojeujFBIQDZDUIN7718-39-60 03:22:00 Test Item Value Reference Range Interpretation Comments MCV (test code = MCV) 89.7 80.0-98.0 [facility] McKinneyPdszjqcFUFNILKTYL3622-03-06 03:22:00 Test Item Value Reference Range Interpretation Comments WBC (test code = WBC) 9.8 3.7-10.4 [facility] McKinneyLckymtvIPYLAHFFLS7754-07-22 03:22:00 Test Item Value Reference Range Interpretation Comments Platelet (test code = Platelet) 178 133-450 [facility] McKinneyEuysexoFYLPKPKADY7213-19-32 03:22:00 Test Item Value Reference Range Interpretation Comments MPV (test code = MPV) 9.1 7.4-10.4 [facility]oywBCPXSAEISX2481-82-11 03:22:00 Test Item Value Reference Range Interpretation Comments MCHC (test code = MCHC) 33.5 32.0-36.0 [facility] McKinneyWxjxmvkFQIZITVWBW4236-86-07 03:22:00 Test Item Value Reference Range Interpretation Comments RDW (test code = RDW) 11.7 11.5-14.5 [facility] McKinneyOdqnlvkHNQWULUVMV7440-74-46 03:22:00 Test Item Value Reference Range Interpretation Comments MCH (test code = MCH) 30.1 pg 27.0-31.0 [facility] AND [id number] 03:22:00 Test Item Value Reference Range Interpretation Comments UA Turbidity (test code Slight Cloudy (06/17/15 = UA Turbidity) 10:22 PM) [facility] AND [id number] 03:22:00 Test Item Value Reference Range Interpretation Comments UA Spec Grav (test code = UA Spec 1.020 1 Grav) [facility] AND [id number] 03:22:00 Test Item Value Reference Range Interpretation Comments UA Urobilinogen (test code = UA 1.0 0.1-1.0 Urobilinogen) [facility] AND [id number] 03:22:00 Test Item Value Reference Range Interpretation Comments UA Nitrite (test code Negative (06/17/15 10:22 = UA Nitrite) PM) [facility] AND [id number] 03:22:00 Test Item Value Reference Range Interpretation Comments UA Blood (test code = Negative (06/17/15 10:22 UA Blood) PM) [facility] AND [id number] 03:22:00 Test Item Value Reference Range Interpretation Comments UA Protein (test code Negative (06/17/15 10:22 = UA Protein) PM) [facility] AND [id number] 03:22:00 Test Item Value Reference Range Interpretation Comments UA pH (test code = UA pH) 7.0 1 5.0-8.0 [facility] AND [id number] 03:22:00 Test Item Value Reference Range Interpretation Comments UA Ketones (test code = Trace *ABN*(06/17/15 UA Ketones) 10:22 PM) [facility] [id number] 03:22:00 Test Item Value Reference Range Interpretation Comments UA Bili (test code = Negative *NA*(06/17/15 UA Bili) 10:22 PM) [facility] [id number] 03:22:00 Test Item Value Reference Range Interpretation Comments UA Glucose (test code Negative (06/17/15 10:22 = [facility]A Glucose) PM) [facility] [id number] 03:22:00 Test Item Value Reference Range Interpretation Comments UA Color (test code = Yellow *NA*(06/17/15 UA Color) 10:22 PM) [facility] [id number] 03:22:00 Test Item Value Reference Range Interpretation Comments UA RBC (test code = 0-2 /HPF See_Comment [Automa perico message] The UA RBC) system which ge nerated this result tra nsmitted reference range : <=2. The reference range was not used to interpr et this result as sincere l/abnormal. [facility] [id number] 03:22:00 Test Item Value Reference Range Interpretation Comments UA Bacteria (test code = UA Moderate /HPF Bacteria) [facility] [id number] 03:22:00 Test Item Value Reference Range Interpretation Comments UA Sq Epi (test code = UA Sq Epi) Few /LPF [facility] [id number] 03:22:00 Test Item Value Reference Range Interpretation Comments UA Leuk Est (test code Trace *ABN*(06/17/15 = UA Leuk Est) 10:22 PM) [facility] [id number] 03:22:00 Test Item Value Reference Range Interpretation Comments UA WBC (test code = UA WBC) 0-2 /HPF [facility] [id number] 03:22:00 Test Item Value Reference Range Interpretation Comments U Preg (test code = U Negative (06/17/15 10:22 Preg) PM) [facility] [id number] 03:22:00 Test Item Value Reference Range Interpretation Comments Lipase Lvl (test code = Lipase Lvl) 118 73-393 [facility]ieoypoZWWYXKAIHMAH5785-28-78 03:22:00 Test Item Value Reference Range Interpretation Comments AGAP (test code = AGAP) 12.6 10.0-20.0 [facility]GavjfzvVOCJHANCFNVM5966-88-60 03:22:00 Test Item Value Reference Range Interpretation Comments A/G Ratio (test code = A/G Ratio) 1.2 0.7-1.6 [facility] HospitalFpipxopKUOXHHECJIOT1465-78-55 03:22:00 Test Item Value Reference Range Interpretation Comments Globulin (test code = Globulin) 3.7 2.0-4.0 [facility] HospitalTlhegjsZILUBPWFCUCL7025-17-81 03:22:00 Test Item Value Reference Range Interpretation Comments B/C Ratio (test code = B/C Ratio) 20 6-25 [facility] HospitalPymkhhoMUIKYNIUCCRU1783-13-59 03:22:00 Test Item Value Reference Range Interpretation Comments eGFR (test code = eGFR) 159 [facility] HospitalOummsysVIMLLJTKODXN1045-62-48 03:22:00 Test Item Value Reference Range Interpretation Comments Sodium Lvl (test code = Sodium Lvl) 139 135-145 [facility] Hospital[id number] 03:22:00 Test Item Value Reference Range Interpretation Comments Creatinine Lvl (test code = Creatinine 0.4 0.5-1.4 Lvl) [facility] Hosp[id number] 03:22:00 Test Item Value Reference Range Interpretation Comments BUN (test code = BUN) 8 7-22 [facility] HospitalLpinklvZWMWNORZEJXS6232-32-64 03:22:00 Test Item Value Reference Range Interpretation Comments Chloride Lvl (test code = Chloride Lvl) 105 95-109 [facility] HospitalTvhtzhdSCWEWXKFSRUU3018-53-34 03:22:00 Test Item Value Reference Range Interpretation Comments Potassium Lvl (test code = Potassium 3.6 3.5-5.1 Lvl) [facility] Hospital[id number] 03:22:00 Test Item Value Reference Range Interpretation Comments CO2 (test code = CO2) 25 24-32 [facility] HospitalUqfwhywFLQDFLVBCGIF4482-11-06 03:22:00 Test Item Value Reference Range Interpretation Comments Total Protein (test code = Total 8.0 6.4-8.4 Protein) [facility] HospitalWhnuuahBTFENISLAKWE4425-42-10 03:22:00 Test Item Value Reference Range Interpretation Comments Calcium Lvl (test code = Calcium Lvl) 9.4 8.5-10.5 [facility] HospitalEakhjqlQXRIIGOJSLCO1945-47-86 03:22:00 Test Item Value Reference Range Interpretation Comments AST (test code = AST) 17 See_Comment [Auto mated message] The system which ge nerated this result transmit perico reference range : <=37. The reference range was not used to interpr et this result as sincere l/abnormal. [facility] HospitalWjbxtzdGGUJIILVWLTN5031-82-59 03:22:00 Test Item Value Reference Range Interpretation Comments Bili Total (test code = Bili Total) 1.2 0.2-1.3 [facility] HospitalZxdnyhkNBHRGHTYWGGT5349-92-30 03:22:00 Test Item Value Reference Range Interpretation Comments ALT (test code = ALT) 19 See_Comment [Auto mated message] The system which ge nerated this result transmit perico reference range : <=65. The reference range was not used to interpr et this result as sincere l/abnormal. [facility] HospitalTfppyvxFVBQBVALUVLI6072-42-37 03:22:00 Test Item Value Reference Range Interpretation Comments Albumin Lvl (test code = Albumin Lvl) 4.3 3.5-5.0 [facility] HospitalJwooybwNKSDBXMVIGMM4368-58-69 03:22:00 Test Item Value Reference Range Interpretation Comments Alk Phos (test code = Alk Phos) 142 80-406 [facility] HospitalXfalmmgPILPITTVXIIC6156-94-07 03:22:00 Test Item Value Reference Range Interpretation Comments Glucose Lvl (test code = Glucose Lvl) 86 70-99 [facility]DluuvdqLTMNNVJQEW4119-76-16 03:22:00 Test Item Value Reference Range Interpretation Comments Segs-Bands # (test code = Segs-Bands #) 6.9 1.5-8.1 [facility]neyOhyilydLPSPJNGJWU0929-44-95 03:22:00 Test Item Value Reference Range Interpretation Comments Lymphocytes # (test code = Lymphocytes 2.3 1.0-5.5 #) [facility]neyHmhafvkSOOZJIMAIS2483-20-39 03:22:00 Test Item Value Reference Range Interpretation Comments Monocytes # (test code 0.6 See_Comment [Aut omated message] The = Monocytes #) system which generated this result tra nsmitted reference range : <=0.8. The reference r malcolm was not used to int erpret this result as normal/abnormal . [facility]neyOpxmszmQESLIKHJAN1716-05-12 03:22:00 Test Item Value Reference Range Interpretation Comments Lymphocytes (test code = Lymphocytes) 23.2 20.0-40.0 [facility]neyOlthdiwHUHIGVBTAW8477-03-16 03:22:00 Test Item Value Reference Range Interpretation Comments Monocytes (test code = Monocytes) 5.9 2.0-12.0 [facility] McKinneyIjfyuldWCFYBXKLAR6015-35-18 03:22:00 Test Item Value Reference Range Interpretation Comments Eosinophils (test code = 0.4 See_Comment [A utomated message] The Eosinophils) system which ge nerated this result tra nsmitted reference range : <=4.0. The reference r malcolm was not used to int erpret this result as normal/abnormal . [facility] McKinneyDhvrtasNVNHWBBRSY4789-33-08 03:22:00 Test Item Value Reference Range Interpretation Comments Basophils (test code = 0.4 See_Comment [Aut omated message] The Basophils) system which ge nerated this result tra nsmitted reference range : <=1.0. The reference r malcolm was not used to int erpret this result as normal/abnormal . [facility] McKinneyFluymkyOPBUEANVDQ3931-37-90 03:22:00 Test Item Value Reference Range Interpretation Comments Segs (test code = Segs) 70.1 34.0-64.0 [facility]neyUmwldsoEJVVCDLBEQ7890-87-65 03:22:00 Test Item Value Reference Range Interpretation Comments PTT (test code = PTT) 28.1 s 22.9-35.8 [facility] McKinneyEpianxcXRWSOFYGYG3941-14-44 03:22:00 Test Item Value Reference Range Interpretation Comments INR (test code = INR) 1.02 0.85-1.17 [facility]neySkhrhyvXCVWSPCZTN6208-24-26 03:22:00 Test Item Value Reference Range Interpretation Comments PT (test code = PT) 13.4 s 12.0-14.7 [facility] McKinneyPguwbhaJOITXAQOET0798-95-91 03:22:00 Test Item Value Reference Range Interpretation Comments Hgb (test code = Hgb) 13.6 12.0-16.0 [facility] McKinneyEscjgypKHCQHGIUPG2501-03-00 03:22:00 Test Item Value Reference Range Interpretation Comments Hct (test code = Hct) 40.5 36.0-48.0 [facility] McKinneyUnaoiqkQUYJFSVOCD6884-37-20 03:22:00 Test Item Value Reference Range Interpretation Comments RBC (test code = RBC) 4.51 4.20-5.40 [facility] McKinneyJyyzisqWZHQMQHXIZ4492-84-92 03:22:00 Test Item Value Reference Range Interpretation Comments MCV (test code = MCV) 89.7 80.0-98.0 [facility] McKinneyEjnuxunKCOSOFIUKC0011-11-49 03:22:00 Test Item Value Reference Range Interpretation Comments WBC (test code = WBC) 9.8 3.7-10.4 [facility] McKinneyEabaywmAYLZXPQSSM8463-67-02 03:22:00 Test Item Value Reference Range Interpretation Comments Platelet (test code = Platelet) 178 133-450 [facility] McKinneyAooygpiMTFHZVMGUE8841-23-98 03:22:00 Test Item Value Reference Range Interpretation Comments MPV (test code = MPV) 9.1 7.4-10.4 [facility] McKinneyXcgihpyMXLRABSNBO4556-24-65 03:22:00 Test Item Value Reference Range Interpretation Comments MCHC (test code = MCHC) 33.5 32.0-36.0 [facility] McKinneyGpbcmayETNTOFYVLM1095-37-88 03:22:00 Test Item Value Reference Range Interpretation Comments RDW (test code = RDW) 11.7 11.5-14.5 [facility] McKinneyLjgrpazFWZOOIBAQN4297-52-95 03:22:00 Test Item Value Reference Range Interpretation Comments MCH (test code = MCH) 30.1 pg 27.0-31.0 [facility] AND [id number] 03:22:00 Test Item Value Reference Range Interpretation Comments UA Turbidity (test code Slight Cloudy (06/17/15 = UA Turbidity) 10:22 PM) [facility] AND [id number] 03:22:00 Test Item Value Reference Range Interpretation Comments UA Spec Grav (test code = UA Spec 1.020 1 Grav) [facility] AND [id number] 03:22:00 Test Item Value Reference Range Interpretation Comments UA Urobilinogen (test code = UA 1.0 0.1-1.0 Urobilinogen) [facility] AND [id number] 03:22:00 Test Item Value Reference Range Interpretation Comments UA Nitrite (test code Negative (06/17/15 10:22 = UA Nitrite) PM) [facility] AND [id number] 03:22:00 Test Item Value Reference Range Interpretation Comments UA Blood (test code = Negative (06/17/15 10:22 UA Blood) PM) [facility] AND [id number] 03:22:00 Test Item Value Reference Range Interpretation Comments UA Protein (test code Negative (06/17/15 10:22 = UA Protein) PM) [facility] AND [id number] 03:22:00 Test Item Value Reference Range Interpretation Comments UA pH (test code = UA pH) 7.0 1 5.0-8.0 [facility] AND [id number] 03:22:00 Test Item Value Reference Range Interpretation Comments UA Ketones (test code = Trace *ABN*(06/17/15 UA Ketones) 10:22 PM) [facility] AND [id number] 03:22:00 Test Item Value Reference Range Interpretation Comments UA Bili (test code = Negative *NA*(06/17/15 UA Bili) 10:22 PM) [facility] AND [id number] 03:22:00 Test Item Value Reference Range Interpretation Comments UA Glucose (test code Negative (06/17/15 10:22 = UA Glucose) PM) [facility] AND [id number] 03:22:00 Test Item Value Reference Range Interpretation Comments UA Color (test code = Yellow *NA*(06/17/15 UA Color) 10:22 PM) [facility] AND [id number] 03:22:00 Test Item Value Reference Range Interpretation Comments UA RBC (test code = 0-2 /HPF See_Comment [Automa perico message] The UA RBC) system which ge nerated this result tra nsmitted reference range : <=2. The reference range was not used to interpr et this result as sincere l/abnormal. [facility] AND [id number] 03:22:00 Test Item Value Reference Range Interpretation Comments UA Bacteria (test code = UA Moderate /HPF Bacteria) [facility] AND [id number] 03:22:00 Test Item Value Reference Range Interpretation Comments UA Sq Epi (test code = UA Sq Epi) Few /LPF [facility] AND [id number] 03:22:00 Test Item Value Reference Range Interpretation Comments UA Leuk Est (test code Trace *ABN*(06/17/15 = UA Leuk Est) 10:22 PM) [facility] [id number] 03:22:00 Test Item Value Reference Range Interpretation Comments UA WBC (test code = UA WBC) 0-2 /HPF [facility] [id number] 03:22:00 Test Item Value Reference Range Interpretation Comments U Preg (test code = U Negative (06/17/15 10:22 Preg) PM) [facility] Notes Date/Time Note Provider Source 2021-05-17 Radiation Dose CTDIVOL = 0 (mGy): DLP = 1073 (mG y-cm) [facility] 23:14:28-00:00 PROCEDURE INFORMATION: Exam: CT Abdomen And Pelvis With Contrast Exam date and time: 05/17/2021 11:09 PM Age: 21 years old Clinical indication: Generalized; Patient HX: C hief complaint: Patient here with C/O lower abd pain since last . Was see n here 4 days ago for same complaint. Also C/O sore throat since last . Also states unable to keep anything down. Mucus membranes pink and moist. R sebas for visit: Abdominal pain; Additional info: /lower abdominal pain TECHNIQUE: Imaging protocol: Computed tomography of the ab domen and pelvis with contrast. Radiation optimization: All CT scans at this [facility] use at least one of these dose optimization techniques: automated ex posure control; mA and/or kV adjustment per patient size (includes targeted e xams where dose is matched to clinical indication); or iterative reconstructio n. Contrast material: OMNI; Contrast volume: 100 m l; Contrast route: INTRAVENOUS (IV) ADDITIONAL STUDY INFORMATION: Total DLP (mGy-cm): 1073 COMPARISON: CT ED Abdomen/Pelvis IV contrast onl y 02/02/2021 2:02 PM FINDINGS: ABDOMINAL ORGANS: No acute CT abnormalities of t he liver, spleen, pancreas, adrenal glands or kidneys are detected. There is no CT evidence of acute renal collecting system obstruction or calcified renal collecting system stone. A benign appearing left renal cortical cyst is not ed for which no follow-up imaging is recommended. BILIARY: The gallbladder is normally distended. No significant biliary ductal dilatation is detected. GASTROINTESTINAL: Bowel asse ssment is limited by the absence of bowel contrast. No gross abnormalities of the stomach or duoden um are identified. No small bowel dilatation is present to suggest o bstruction. The appendix is identified and is not acutely inflamed. The colon demonstra laureano no evidence of diverticular disease or acute inflammatory wall thickening. PERITONEUM: No evidence of free intraperitoneal air. A small volume of free intraperitoneal fluid is identified in the pelvi c cul-de-sac RETROPERITONEUM: The abdominal aorta demonstrate s no evidence of aneurysm or dissection. There is no evidence of retroperiton eal mass or adenopathy. PELVIS: No abnormalities of the ovaries or adnex a are noted. The bladder has an unremarkable appearance. No enlarged pelvic l ymph nodes are identified. LOWER CHEST: The lung bases appear clear of acut e disease. ADDITIONAL FINDINGS: None. IMPRESSION: 1. No acute CT abnormalities of the abdomen or p clemente are detected. SL:131 Joel Moreno MD On 05/17/2021 23:55:49; VR -[id number] 2021-02-02 Radiation Dose CTDIVOL = 0 (mGy): DLP = 870.6 (m Gy-cm) [facility] 13:40:00-00:00 PROCEDURE INFORMATION: Exam: CT Abdomen And Pelvis With Contrast Exam date and time: 02/02/2021 2:02 PM Age: 21 years old Clinical indication: C/O n/v x2 days wit h rlq abd pain after vomiting started; Lower back painstarting yesterday; Denies urinar y s/s; Diarrhea on Monday but none since then; Denies pmh TECHNIQUE: Imaging protocol: Computed tomography of the abdomen and pelvis with contrast. Radiation optimization: All CT scans at this facility use at least one of these dose optimization techniques: automated exposure control; mA and/or kV adjustment per patient size (includes targeted e xams where dose is matched to clinical indication); or iterative reconstructio n. Contrast material: OMNIPAQUE 300; Contrast volum e: 100 ml; Contrast route: INTRAVENOUS (IV); COMPARISON: CT ED Abdomen/Pelvis IV contrast only 10/12/2017 11:59 AM RADIATION DOSE METRICS: Total DLP (mGy-cm): 870.6 FINDINGS: Liver: Normal. No mass. Gallbladder and bile ducts: Normal. No calcified stones. No ductal dilation. Pancreas: Normal. No ductal dilation. Spleen: Normal. No splenomegaly. Adrenal glands: Normal. No mass. Kidneys and ureters: Small simple cyst of the le ft kidney for which no follow-up is indicated. Kidneys otherwise normal . No hydronephrosis. Stomach and bowel: Normal stomach and duodenum. Normal small bowel. Normal colon. Appendix: Normal appendix. Intraperitoneal space: Trace pelvic free fluid, likely physiologic. Vasculature: No acute vascular abnormality. No a bdominal aortic aneurysm. Lymph nodes: Unremarkable. No enlarged lymph nod es. Urinary bladder: Unremarkable as visualized. Reproductive: Unremarkable as visualized. Bones/joints: No acute osseous abnormality or ag gressive osseous lesion. Soft tissues: Unremarkable. IMPRESSION: Negative exam. COMMENTS: Consistent with the [employer]'s Incidental Findings Committee white paper (J Am Rachel Radiol 2018): Any incidental renal lesion less than 1 cm or classified as too small to characterize, or any incidental cystic renal lesion characterized as simple-gatito earing, is likely benign. No follow-up imaging is recommended for t hese lesions per consensus recommendations based on imaging criteria. Vineet Hernandez MD On 02/02/2021 15:07:25; LUISA [id number] 2018-09-24 EXAM: CT BRAIN WITHOUT CONTRAST [facility] 17:46:00-00:00 DATE: 09/24/2018 5:46 PM 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 INDICATION: 'CHISHOLM, copious vomitus' COMPARISON: 02/18/2015 TECHNIQUE: Axial CT images o f the brain were obtained. Sagittal and coronal reformats. IV contrast: None. DLP: 813 mGy-cm FINDINGS: The metallic piercing that r emains in the patient's left pinna causes streak artifact. There is no edema, hemorrhag e, mass lesion or other acute intracranial abnormality. There is no chronic abnormality. There is no fracture of the skull, skull base, o r visible facial bones. IMPRESSION: Normal noncontrast head CT. The final report agrees with the batooli gilbert report by the sales and marketing vice president. 2018-09-24 EXAM: XR CHEST 1 VIEW [facility] 17:21:00-00:00 DATE: 09/24/2018 5:21 PM 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 INDICATION: - Multiple episodes of wretching COMPARISON: Chest x-ray 08/06/2010 TECHNIQUE: AP chest. FINDINGS: Lines, tubes and hardware: None. Lungs and pleura: The lungs are clear. No pleura l effusion or pneumothorax. Heart and mediastinum: The h eart size is normal for technique. The mediastinal contours are normal. Pulmonary vascularity is normal. Bones and soft tissues: No acute abnormality. IMPRESSION: No acute abnormality. 2018-08-03 MULTIPLE STUDIES (ABDOMINAL AND PELVIS ULTRASOUN D) JAMIA Shetty 12:45:00-00:00 HISTORY: - R10.9 Unspecified abdominal pain, K59.09 Chronic Constipation; COMPARISON: None available. ULTRASOUND ABDOMEN COMPLETE TECHNIQUE: Grayscale and ng ited color sonographic evaluation of the abdomen was performed with standard technique. LIVER: The visualized liver shows n ormal contour, size, and morphology without focal lesions. Normal hepatic echotexture. BILE DUCTS: The intrahepatic and extrahe patic bile ducts are not dilated with the common bile duct measuring 4.0 mm. GALLBLADDER: There are no gallstones, gal lbladder sludge, pericholecystic fluid or wall thickening. PANCREAS: The pancreas body is normal, the head and tail a re obscured by bowel gas. SPLEEN: The spleen is unremarkable a nd measures 10.5 cm x 3.7 cm x 4.0 cm in long axis. KIDNEY: The right kidney measures 11 .3 cm x 4.9 cm x 5.2 cm. The left kidney measures 12.5 cm x 5.6 cm x 4.9 cm. There is normal renal contour and morphology, with normal parenchymal echotexture. There is no hydronephrosis. Small about 11.0 mm x 9.0 mm x 10.0 mm interpolar to inferior left renal cyst is present. AORTA AND INFERIOR VENA CAVA: Visualized portions appear normal. ASCITES: There is no abdominal ascites. ULTRASOUND PELVIS TECHNIQUE: Grayscale, color and Doppler transabdominal imaging of the pelvis was performed with standard technique. TRANSABDOMINAL: The uterus measures about 7. 3 cm x 2.2 cm x 3.9 cm in size. The uterine parenchyma appears normal without evidence of fibroids. Normal uterine contour and m orphology. There is normal parenchymal echotexture. The endometrial stripe measures 5.0 mm in thickness. Both ovaries are normal in s ize and appearance. The right ovary measures 2.9 cm x 1.4 cm x 2.1 cm and the left ovary measures 3.5 cm x 1.4 cm x 2.0 cm. A small 10.0 mm right follicle is present. There are no adnexal masses. There is small amount of free fluid in the pelvic cul-de-sac. IMPRESSION: 1. No definite gallstones. 2. A small 10.0 mm right follicle is present. 3. Heterogeneous uterus. No definite fibroids. SL: 2017-10-27 PROCEDURE: ABDOMINAL ULTRASOUND GEO [place] 14:00:00-00:00 Clinical Indication: Abdominal pain. Comparison: CT of the abdomen 06/18/2015. TECHNIQUE: Sonographic evalu ation of the abdomen was performed with supplemental color and pulsed Doppler. FINDINGS: LIVER: The liver is uniform in echogenicity with no focal lesions or biliary duct dilatation. The common bile duct measures 4 mm the transvers e dimension. GALLBLADDER: There are no ga llstones, sludge, pericholecystic fluid or wall thickening. PANCREAS: The visualized portions of the pancrea s appears normal. SPLEEN: The spleen is normal. KIDNEYS: The right kidney measures 10.4 cm in length. Normal contour and parenchym al echogenicity. There is no hydronephrosis, nephrolithiasis, mass lesion or perinephric collection. The left kidney measures 11.1 cm in length. Normal contour and parenchym al echogenicity. There is no hydronephrosis, nephrolithiasis, mass lesion or perinephric collection. AORTA AND INFERIOR VENA CAVA: Visualized portion s appear normal. Additional comments: No free intraperitoneal flu id. IMPRESSION: 1. No cholelithiasis or acute cholecystitis. 2. The common bile duct is normal in width. 2017-10-12 PROCEDURE: CT ABDOMEN AND PELVIS WITH CONTRAST [facility] 11:50:00-00:00 Clinical Indication: Abdominal pain. Comparison: None TECHNIQUE: Helical imaging w as performed diaphragm through the symphysis with multiplanar reformations obtained. IV CONTRAST: 100 mL Omnipaque 300 GI CONTRAST: None. DLP: 744.52 mGy-cm FINDINGS: LOWER CHEST: The lung bases are clear. LIVER: Normal. BILIARY TREE: Normal. GALLBLADDER: Normal. PANCREAS: Normal. SPLEEN: Normal. ADRENALS: Normal. KIDNEYS: There is a round lo w attenuated 11 mm cyst in the lower pole the left kidney. BOWEL: There is mild thicken ing of the distal gastric antrum, pyloric channel, and the 1st segment of the duodenum. This is appreciated in both the axial coronal series. Please see axial images. 33. APPENDIX: Normal. PERITONEUM: No free intraperitoneal fluid or air . RETROPERITONEUM: No adenopathy. The aorta is nor mal. PELVIS: No pelvic mass. The urinary bladder is n ormal. MUSCULOSKELETAL: The skeleton is intact. IMPRESSION: 1. Normal appendix. 2. Mild thickening of the di stal gastric antrum, the pyloric channel, and the 1st segment of the duodenum. Consider follow-up with gastrointestinal. 3. There is an 11 mm low att enuated rounded cyst in the lower pole of the left kidney. This can be better evaluated with dedicated renal ultrasound. 2015-06-18 CT ABDOMEN AND PELVIS WITH CONTRAST [facility] 00:35:00-00:00 INDICATION: Acute abdominal pain COMPARISON: Right upper quadrant ultrasound 03/2015 FINDINGS: ABDOMEN: The visible lung bases are c lear. The liver, spleen, pancreas, gallbladder, adrenal glands, and kidneys appear normal. The stomach and bowel loops, including the appendix, are unremarkable. No abdominal lymphadenopathy is identified. PELVIS: Trace free fluid is noted in the cul-de-sac. The uterus, adnexa, and bladder appear normal. No pelvic mass or lymphadenopathy are identified. BONES: No acute bony abnormalities are seen. IMPRESSION: Nonspecific trace pelvic kaveh e fluid. Otherwise, no acute intra-abdominal or pelvic abnormalities are visualized. SL: 2015-06-17 GALLBLADDER ULTRASOUND [facility] 22:20:00-00:00 CLINICAL HISTORY: See Clinic Indication TECHNIQUE AND FINDINGS: Multiple static images from a gallbladder ultrasound are submitted for interpretation. COMPARISON: No prior similar examinations are currently available for comparison. The gallbladder is normal wi thout evidence of cholelithiasis, wall thickening, pericholecystic fluid, or biliary dilatation. The short visualized segment of the common bile duct measures 3 mm. The visua lized portions of the liver, right kidney, and p ancreas are normal. IMPRESSION: Normal gallbladder ultrasound. SL:2014-12-09 INDICATIONS: Status post sof tball injury 2 days ago with pivot twist injury to the right knee and patient heard a pop. Suspected ACL injury. [facility] 01:53:00-00:00 PROCEDURE: MRI examination o f the right knee was performed at 1.5 Amber using a dedicated extremity coil. Multiplanar T1 and T2 weighted sequences were obtained. Oblique coronal the ACL view was also obtained. FINDINGS: LIGAMENTS: Anterior cruciate Ligament: Intact Posterior cruciate Ligament: Intact Medial Patellofemoral Ligament: Intact Lateral Collateral Ligament: Intact Medial Collateral Ligament: Intact Posterolateral Complex: Intact TENDONS: Quadriceps Tendon: Intact Patellar Tendon: Intact Semimembranosus Tendon: Intact Semitendinosus Tendon: Intact Medial Gastrocnemius Tendon: Intact MENISCI: Medial Meniscus: Intact Lateral Meniscus: Intact BURSA: Suprapatellar Bursa: Intact Semimembranosus/gastrocnemius Bursa: Intact Pes Anserinus Bursa: Intact. CARTILAGE: Patella: Intact Trochlear: intact Medial compartment: intact Lateral compartment: intact Hoffa's Fat Pad: No granulation tissue, fibrosis or inflammation. Other Findings: There is sof t tissue swelling about the patellar tendon, lateral patellofemoral ligament and lateral collateral ligaments. There is a small foci of increased T2 signal intensity seen in the inferior pole of the pat madhu on image #23 of series which is most likely a vascular channel. IMPRESSION: 1. Soft tissue sprain about the patellar tendon, lateral patellofemoral ligament and lateral collateral ligaments. 2. No definite abnormality of the ACL. 2014-12-08 EXAM: RIGHT TIBIA-FIBULA 2 VIEWS [facility] 20:18:00-00:00 DATE: Dec 08, 2014 08:28:00 PM INDICATION: Pain from a fall COMPARISON: outside XR right knee, 12/08/2014 TECHNIQUE: AP and lateral radiographs of the rig ht tibia - fibula FINDINGS: No fracture, dislo cation or other acute bony abnormality is identified. No soft tissue abnormality is identified. IMPRESSION: No abnormality identified.
[2023-05-02 11:42] LABS: Specific Gravity 1.025 (1.005-1.030); Transitional Epithelial <5 /HPF (None Seen); Urine Bacteria None Seen /HPF (<20); Urine Bilirubin NEGATIVE (Negative); Urine Blood Negative (Negative); Urine Clarity Turbid (Clear); Urine Color Light-Yellow (Yellow); Urine Glucose NEGATIVE (Negative); Urine Mucus Slight /HPF (None Seen); Urine Protein TRACE (Negative); Urine RBC <5 /HPF (None Seen); Urine Urobilinogen Normal (Normal); Urine pH 6.5 (5.0-7.0)
[2023-05-02] MEDS ORDERED: NA CHLORIDE 0.9% 1,000 ML ONE (11:53)
--- NOTE | 2023-05-02 11:55 | RAD REPORT ---
EXAM DESCRIPTION: US - Transvaginal OB - 05/02/2023 11:36 am CLINICAL HISTORY: ABD CRAMPING, COMPARISON: Transvaginal OB dated 09/27/2021 TECHNIQUE: Sonographic grayscale and color flow images of a first-trimester were obtained through transvaginal approach. FINDINGS: A single intrauterine is identified. Gestational sac shows average diameter 6.6 millimeter, corresponding to gestational age 5 weeks and 2 days. No pole was identified. Maternal ovaries are unremarkable apart from a complex cyst or follicle in the left ovary measuring u p to 2 centimeter. Trace fluid in the cul-de-sac. IMPRESSION: 1. Single intrauterine gestational sac, with calculated age of 5 weeks and 2 days. Follo w-up with serial beta HCG levels, and confirmatory ultrasound in 7-10 days to re-evaluate v iability are recommended. 2. Prominent follicle versus corpus luteum along the left ovary. 3. Trace fluid in the cul-de-sac, favored to be physiologic.
[2023-05-02 12:14] LABS: Absolute Lymphocytes (CBC) 2.3 K/uL (0.7-4.9); Hematocrit 39.5 % (36.0-45.0); Lymphocytes % 20.5 % (15.3-44.8); MCV 86.3 fL (80-100); MPV 8.8 fL (7.6-11.3); RBC Red Blood Cell Count 4.58 M/uL (3.86-4.86)
[2023-05-02] MEDS ORDERED: ONDANSETRON 4 MG/2 ML VIAL ONE (12:32)
[2023-05-02 12:45] LABS: Potassium 3.9 mEq/L (3.5-5.1)
--- NOTE | 2023-05-02 13:33 | EDPHYS ---
Physician Documentation [facility] Name: Janneth Issa Age: 23 yrs Sex: Female : 2000 Arrival Date: 05/02/2023 Time: 10:55 Bed 11 Private MD: ED Physician Suman Smith HPI: 05/02 13:24 This 23 yrs old Female presents to ER via Ambulatory with complaints of seb Cramping at 5 weeks . 13:24 The patient presents to the emergency department with possible uterine contractions, seb The estimated gestational age is 5 weeks. course: care: none. Previous pregnancies: in previous pregnancies patient has had vaginal delivery. Associated signs and symptoms: The patient has no apparent associated signs or symptoms. The patient has not experienced similar symptoms in the past. 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 - Social history:: Smoking status: . ROS: 13:25 Constitutional: Negative for fever, chills, and weight loss, Eyes: Negative for injury, seb pain, redness, and discharge, ENT: Negative for injury, pain, and discharge, Neck: Negative for injury, pain, and swelling, Cardiovascular: Negative for chest pain, palpitations, and edema, Respiratory: Negative for shortness of breath, cough, wheezing, and pleuritic chest pain, Back: Negative for injury and pain, : Negative for injury, bleeding, discharge, and swelling, MS/Extremity: Negative for injury and deformity, Skin: Negative for injury, rash, and discoloration, Neuro: Negative for headache, weakness, numbness, tingling, and seizure, Psych: Negative for depression, anxiety, suicide ideation, homicidal ideation, and hallucinations, Allergy/Immunology: Negative for hives, rash, and allergies, Endocrine: Negative for neck swelling, polydipsia, polyuria, polyphagia, and marked weight changes, Hematologic/Lymphatic: Negative for swollen nodes, abnormal bleeding, and unusual bruising. 13:25 Abdomen/GI: Positive for abdominal pain, of the right lower quadrant and left lower quadrant. Exam: 13:25 Constitutional: This is a well developed, well nourished patient who is awake, alert, seb and in no acute distress. Head/Face: Normocephalic, atraumatic. Eyes: Pupils equal round and reactive to light, extra-ocular motions intact. Lids and lashes normal. Conjunctiva and sclera are non-icteric and not injected. Cornea within normal limits. Periorbital areas with no swelling, redness, or edema. ENT: Nares patent. No nasal discharge, no septal abnormalities noted. Tympanic membranes are normal and external auditory canals are clear. Oropharynx with no redness, swelling, or masses, exudates, or evidence of obstruction, uvula midline. Mucous membranes moist. Neck: Trachea midline, no thyromegaly or masses palpated, and no cervical lymphadenopathy. Supple, full range of motion without nuchal rigidity, or vertebral point tenderness. No Meningismus. Chest/axilla: Normal chest wall appearance and motion. Nontender with no deformity. No lesions are appreciated. Cardiovascular: Regular rate and rhythm with a normal S1 and S2. No gallops, murmurs, or rubs. Normal PMI, no JVD. No pulse deficits. Respiratory: Lungs have equal breath sounds bilaterally, clear to auscultation and percussion. No rales, rhonchi or wheezes noted. No increased work of breathing, no retractions or nasal flaring. Back: No spinal tenderness. No costovertebral tenderness. Full range of motion. Skin: Warm, dry with normal turgor. Normal color with no rashes, no lesions, and no evidence of cellulitis. MS/ Extremity: Pulses equal, no cyanosis. Neurovascular intact. Full, normal range of motion. Neuro: Awake and alert, GCS 15, oriented to person, place, time, and situation. Cranial nerves II-XII grossly intact. Motor strength 5/5 in all extremities. Sensory grossly intact. Cerebellar exam normal. Normal gait. Psych: Awake, alert, with orientation to person, place and time. Behavior, mood, and affect are within normal limits. 13:25 Abdomen/GI: Inspection: abdomen appears normal, Bowel sounds: normal, Palpation: abdomen is soft and non-tender, Liver: no appreciated palpable abnormalities, Hernia: not appreciated. Vital Signs: 11:09 BP 136 / 62; Pulse 86; Resp 16; Temp 98.6; Pulse Ox 99% on R/A; Weight 113.4 kg; Height iw 5 ft. 4 in. ; Pain 4/10; 13:05 BP 111 / 71; Pulse 90; Resp 18; Pulse Ox 100% ; Pain 3/10; nj1 13:51 BP 114 / 49; Pulse 82; Resp 18; Pulse Ox 100% ; Pain 0/10; nj1 11:09 Body Mass Index 42.91 (113.40 kg, 162.56 cm) iw 11:09 Pain Scale: Adult iw 13:05 Pain Scale: Adult nj1 13:51 Pain Scale: Adult nj1 MDM: 11:13 Patient medically screened. [facility] 13:27 Differential diagnosis: threatened Ab, inevitable Ab, complete Ab, retained Ab, missed seb Ab. Data reviewed: vital signs, nurses notes, lab test result(s), radiologic studies, ultrasound. Consideration of Admission/Observation Escalation of care including admission/observation considered. I considered the following discharge prescriptions or medication management in the emergency department Medications were administered in the Emergency Department. See MAR. Test considered but Not performed: X-ray: no x ray. Counseling: I had a detailed discussion with the patient and/or guardian regarding: the historical points, exam findings, and any diagnostic results supporting the discharge/admit diagnosis, lab results, radiology results, the need for outpatient follow up, for definitive care, an OB/Gyne specialist. 05/02 11:13 Order name: Test, Urine; Complete Time: : 05/02 11:13 Order name: Urinalysis w/ reflexes; Complete Time: :20 05/02 11:13 Order name: Abo/rh Typing; Complete Time: : [facility] 05/02 11:13 Order name: Basic Metabolic Panel; Complete Time: : [facility] 05/02 11:13 Order name: CBC with Diff; Complete Time: :20 [facility] 05/02 11:13 Order name: Test, Urine [facility] 05/02 11:13 Order name: Quantitative Hcg; Complete Time: : [facility] 05/02 11:13 Order name: Urinalysis w/ reflexes [facility] 05/02 11:13 Order name: US Transvaginal Ob; Complete Time: 13:20 [facility] 05/02 11:13 Order name: IV Saline Lock; Complete Time: 12:07 [facility] 05/02 11:13 Order name: Labs collected and sent; Complete Time: 12:07 [facility] 05/02 11:13 Order name: NPO; Complete Time: 12:47 [facility] Administered Medications: 12:28 Drug: NS 0.9% IV 1000 ml Route: IV; Rate: 1 bolus; Site: right antecubital; nj1 13:50 Follow up: Response: No adverse reaction; IV Status: Completed infusion; IV Intake: nj1 1000ml 12:30 Drug: Ondansetron IVP 4 mg Route: IVP; Site: right antecubital; nj1 13:05 Follow up: Response: No adverse reaction nj1 Disposition Summary: 05/02/23 13:32 Discharge Ordered Location: Home seb Problem: new seb Symptoms: have improved seb Condition: Stable seb Diagnosis - Encounter for supervision of normal first , first trimester seb Followup: seb - With: Private Physician - When: 2 - 3 days - Reason: Recheck today's complaints, Continuance of care, Re-evaluation by your physician Discharge Instructions: - Discharge Summary Sheet seb - Care seb - First Trimester of , [id number] seb - First Trimester of seb Forms: - Medication Reconciliation Form seb - Thank You Letter seb - Antibiotic Education seb - Prescription Opioid Use seb Signatures: Dispatcher [employer] Suman Manzo MD MD cha Williams, Irene, RN RN iw Jaco, Norma, RN RN nj1 Corrections: (The following items were deleted from the chart) 13:36 11:31 Transvaginal Ob+US.RAD.BRZ ordered. EDMS EDMS
--- NOTE | 2023-05-02 13:33 | ER ---
Nurse's Notes [facility] Name: Janneth Issa Age: 23 yrs Sex: Female : 2000 Arrival Date: 05/02/2023 Time: 10:55 Bed 11 Private MD: Diagnosis: Encounter for supervision of normal first , first trimester Presentation: 05/02 11:07 Chief complaint: Patient states: is approx 5 weeks , started cramping 2 days iw ago and worse today , no bleeding , has an appt with OB doc next week , LMP 03-26-23. Coronavirus screen: At this time, the client does not indicate any symptoms associated with coronavirus-19. Ebola Screen: Patient negative for fever greater than or equal to 101.5 degrees Fahrenheit, and additional compatible Ebola Virus Disease symptoms Patient denies exposure to infectious person. Patient denies travel to an Ebola-affected area in the 21 days before illness onset. No symptoms or risks identified at this time. Onset of symptoms was April 30, 2023. 11:07 Method Of Arrival: Ambulatory iw 11:07 Acuity: PIO 3 iw 11:09 Initial Sepsis Screen: Does the patient meet any 2 criteria? No. Patient's initial iw sepsis screen is negative. Does the patient have a suspected source of infection? No. Patient's initial sepsis screen is negative. Risk Assessment: Do you want to hurt yourself or someone else? Patient reports no desire to harm self or others. 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 - Social history:: Smoking status: . Screenin:52 [facility] ED Fall Risk Assessment (Adult) History of falling in the last 3 months, nj1 including since admission No falls in past 3 months (0 pts) Confusion or Disorientation No (0 pts) Intoxicated or Sedated No (0 pts) Impaired Gait No (0 pts) Mobility Assist Device Used No (0 pt) Altered Elimination No (0 pt) Score/Fall Risk Level 0 - 2 = Low Risk Oriented to surroundings, Maintained a safe environment, Hourly rounding (assess needs \T\ fall precautionary measures) done. Abuse screen: Denies threats or abuse. Denies injuries from another. Nutritional screening: No deficits noted. Tuberculosis screening: No symptoms or risk factors identified. Assessment: 12:25 General: Appears in no apparent distress. comfortable, Behavior is calm, cooperative, nj1 appropriate for age. 12:25 Pain: Complains of pain in abdomen Pain currently is 3 out of 10 on a pain scale. nj1 Quality of pain is described as crampy, Pain began gradually, 2-3 days ago. Neuro: Level of Consciousness is awake, alert, obeys commands, Oriented to person, place, time, situation. Cardiovascular: Patient's skin is warm and dry. Respiratory: Airway is patent Respiratory effort is even, unlabored. GI: Reports lower abdominal pain, cramping, nausea. 13:05 Reassessment: No changes from previously documented assessment. in1 13:51 Reassessment: Patient appears in no apparent distress at this time. Patient and/or nj1 family updated on plan of care and expected duration. Pain level reassessed. Patient is alert, oriented x 3, equal unlabored respirations, skin warm/dry/pink. Patient denies pain at this time. Patient states feeling better. Vital Signs: 11:09 BP 136 / 62; Pulse 86; Resp 16; Temp 98.6; Pulse Ox 99% on R/A; Weight 113.4 kg; Height iw 5 ft. 4 in. ; Pain 4/10; 13:05 BP 111 / 71; Pulse 90; Resp 18; Pulse Ox 100% ; Pain 3/10; nj1 13:51 BP 114 / 49; Pulse 82; Resp 18; Pulse Ox 100% ; Pain 0/10; nj1 11:09 Body Mass Index 42.91 (113.40 kg, 162.56 cm) iw 11:09 Pain Scale: Adult iw 13:05 Pain Scale: Adult nj1 13:51 Pain Scale: Adult [facility] ED Course: 10:58 Patient arrived in ED. im 11:08 Triage completed. iw 11:09 Arm band placed on. iw 11:13 Suman mSith MD is Attending Physician. [facility] 11:26 Mary Carlson, RN is Primary Nurse. nj 11:31 US Transvaginal Ob In Process Unspecified. EDMS 12:01 Mary Carlson, RN is Primary Nurse. nj1 12:07 Test, Urine Sent. kj1 12:07 Urinalysis w/ reflexes Sent. kj1 12:25 Patient has correct armband on for positive identification. Bed in low position. Call nj light in reach. Side rails up X 1. 13:52 No provider procedures requiring assistance completed. IV discontinued, intact, nj1 bleeding controlled. Administered Medications: 12:28 Drug: NS 0.9% IV 1000 ml Route: IV; Rate: 1 bolus; Site: right antecubital; nj 13:50 Follow up: Response: No adverse reaction; IV Status: Completed infusion; IV Intake: nj1 1000ml 12:30 Drug: Ondansetron IVP 4 mg Route: IVP; Site: right antecubital; nj1 13:05 Follow up: Response: No adverse reaction nj Medication: 13:53 VIS not applicable for this client. nj1 Intake: 13:50 IV: 1000ml; Total: 1000ml. nj Outcome: 13:32 Discharge ordered by . [facility] 13:53 Discharged to home ambulatory. [facility] 13:53 Condition: stable 13:53 Discharge instructions given to patient, Instructed on discharge instructions, follow up and referral plans. Demonstrated understanding of instructions, follow-up care. 13:54 Patient left the ED. nj Signatures: Dispatcher [employer] EDKY Suman Smith MD MD cha Williams, Irene, RN Jessy Mittal [facility] Mary Carlson, POPPY RN nj Denae Carlson Corrections: (The following items were deleted from the chart) 12:52 12:25 General: Appears in no apparent distress. comfortable, nj1 nj1 13:36 11:47 In radiology for Transvaginal Ob+US.RAD.BRZ. EDKY EDKY
[2023-05-02 14:08] VITALS: TEMP 98.6
[2023-05-02 14:10] VITALS: O2SAT 100
[2023-05-02 14:12] VITALS: BP 114/49
== END 2023-05-02 13:54 | disposition home or self-care (01) ==
LOC: ER 10:55
DX: O26.891 Other specified pregnancy related conditions, first trimester (principal); Z3A.01 Less than 8 weeks gestation of pregnancy; Z88.0 Allergy status to penicillin; Z88.2 Allergy status to sulfonamides; Z88.3 Allergy status to other anti-infective agents
CPT/HCPCS: 96361; 85025; 81001; 80048; 36415; 86900; 81025; 86901; 84702; 76817; 96374; 99284; J2405; J7030

== ENCOUNTER 2023-09-02 13:50 | Emergency (ER) | payer OTHER ==
--- OUTSIDE RECORDS SUMMARY | 2023-09-02 14:08 | XMS REPORT | Continuity of Care Document ---
:2000 Author Organization [facility] t Address [address] [facility] [address] [facility] [address] [place] [address] Care Team Providers Name Role Phone PCP, [...] Attending Clinician Unavailable Telma Lai Attending Clinician [phone] TELMA LAI Attending Clinician Unavailable Lolis West [...] Policy Number Effective Date Expiration Date S [id number] 2017 00:00:00 2017 00: 00:00 Problems Condition Condition Condition Status Onset Resolution Last Treating Co mments Source Name Details Category Date Date Treatment Clinician Date CONTRACTIO CONTRACTI Diagnosis Active 2022-05-27 Kemi LUNSFORD ONS Active 05-27 14:20:00 l 05/27/2022 00:00: Bartolome BLANDON [address] LOF/CTXS LOF/CTXS Diagnosis Active 2022-05-25 Memoria Active 05-25 12:56:00 l 05/25/2022 00:00: Bartoolme paul [address] CRAMPING/B CRAMPING/ Diagnosis Active 2022-05-19 Memoria LURRED BLURRED 05-19 18:25:00 l VISION VISION 00:00: Willie Active 00 05/19/2022 [facility] CONTRACTIN CONTRACTI Diagnosis Active 2022-05-06 Memoria G NG Active 05-05 03:42:00 l 05/05/2022 00:00: Bartolome paul [address] CHILDBIRTH CHILDBIRT Diagnosis Active 2022-05-15 Memoria H Active 03-08 08:47:00 l 03/08/2022 23:25: Bartolome paul [address] / / Diagnosis Active 2020-112021-10-28 Memoria NAUSEA NAUSEA 12-29 13:31:00 l Active 00:00: Willie 10/28/2021 00 [facility] ABDOMINAL ABDOMINAL Diagnosis Active 2021-05-17 Memoria PAIN PAIN 05-17 21:45:00 l Active 00:00: Willie 05/17/2021 00 [facility] [place] PUI PUI Diagnosis Active 2021-05-13 Mem oria Active 05-13 08:45:00 l 05/13/2021 00:00: Bartolome paul 00 [place] VOMITING VOMITING Diagnosis Active 2021-02-02 Memoria Active 02-02 13:30:00 l 02/02/2021 00:00: Bartolome paul 00 [place] ABD ABD Diagnosis Active 2017-112018-09-24 Mem oria PAIN/RECTA PAIN/RECTA - 18:33:00 l L AND L AND 00:00: [place] VAGINAL VAGINAL 00 BLEEDING BLEEDING Active 09/24/2018 [facility] R10.9 - R10.9 - Diagnosis Active 2016-112017-10-27 Memoria UNSPECIFIE UNSPECIFIE 2-13 13:14:00 l D D 00:01: [place] ABDOMINAL ABDOMINAL 00 PAIN PAIN Active 10/25/2017 [facility] [place] HEADACHE HEADACHE Diagnosis Active 2015-02-18 Memoria Active 02-18 21:00:00 l 02/18/2015 00:00: Bartolome paul 00 [place] RT KNEE RT KNEE Diagnosis Active 2014-12-08 Memoria DISLOCATIO DISLOCATIO 12-08 19:41:00 l N N Active 00:00: [place] 12/08/2014 00 [facility] Hemorrhage Problem 2019-04-13 M emoria of anus Hemorrhage 12:24:45 l and rectum of anus Mame nn and rectum 04/13/2019 [facility] Abnormal Abnormal Problem 2019-04-13 Memoria uterine uterine 12:24:45 l and and Willie vaginal vaginal bleeding, bleeding, unspecifie unspecifie d d 04/13/2019 [facility] Fever, Fever, Problem 2019-04-13 Leonid indigo unspecifie unspecifie 12:24:45 l d d [place] 04/13/2019 [facility] Headache Headache Problem 2019-04-13 Memoria 04/13/2019 12:24:45 l [facility] Generalize Generaliz Problem 2019-04-13 Memoria d ed 12:24:45 l abdominal abdominal Herm sina pain pain 04/13/2019 [facility] Dysuria Dysuria Problem 2019-04-13 Me moria 04/13/2019 12:24:45 l [facility] Hematuria, Hematuria Problem 2019-04-13 Memoria unspecifie , 12:24:45 l d unspecifie Bartolome n d 04/13/2019 [facility] Weakness Weakness Problem 2019-04-13 Memoria 04/13/2019 12:24:45 l [facility] Constipati Constipat Problem 2019-04-13 Memoria on, ion, 12:24:45 l unspecifie unspecifie He rmann d d 04/13/2019 [facility] Other Other Problem 2019-04-13 Memor ia fatigue fatigue 12:24:45 l 04/13/2019 Bartolome paul [facility] 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 Memoria (current) (current) 12:24:45 l use of use of [place] hormonal hormonal contracept contracept bertrand bertrand 04/13/2019 [facility] Cyst of Cyst of Problem 2019-02-20 Ia moria kidney, kidney, 14:09:15 l acquired acquired Bartolome n 02/20/2019 [facility] s[facility] Chlamydial Chlamydia Problem Resolve 2022-06-01 Memoria infection l d 22:47:44 l (disorder) infection Her roberts (disorder) Resolved Problem 06/01/2022 [facility] Vomiting Vomiting Problem Active 2022-06-01 Memoria (disorder) (disorder) 22:47:44 l Active Willie Problem 06/01/2022 [facility], [place] Adriano santiago,[facility] ACL SPRAIN ACL Diagnosis Active 2015-01-29 Memoria SPRAIN 08:15:00 l Active [facility] KNEE PAIN KNEE PAIN Diagnosis Active 2015-06-25 Memoria Active 17:12:00 l [facility] History of History of Problem Resolve [place] [...] ans Patient Patient Problem Resolve 2020-112022-06-01 2022-06-01 Kemi currently currently d 0-08 22:47:44 22:47:44 l 00:00: Bartolome paul (finding) (finding) 00 Resolved 08/20/2021 Problem 06/01/2022 [facility] History of Past Illness Condition Condition Condition Status Onset Resolution Last Treating Co mments Source Name Details Category Date Date Treatment Clinician Date Problem 2022-05-27 2022-05-27 Memoria state, [facility], 05-25 22:59:43 22:59:43 l incidental incidental 19:10: He jovani 2 05/27/2022 [facility] Mild Mild Problem 2020-112021-10-30 2021-10-30 M emoria hyperemesi hyperemesi 12-29 23:38:31 23:38:31 l s s 21:21: Willie gravidarum gravidarum 00 10/30/2021 [facility] Acute Acute Problem 2021-05-20 2021-05-20 M emoria pharyngiti pharyngiti 05-18 21:02:18 21:02:18 l s, s, 17:00: [place] unspecifie unspecifie 00 d d 05/18/2021 05/20/2021 [facility] Urinary Urinary Problem 2021-05-20 2021-05-20 [facility] tract tract 05-18 21:02:18 21:02:18 l infection, infection, 17:00: He jovani site not site not 00 specified specified 05/18/2021 05/20/2021 [facility] Lower Lower Problem 2021-05-20 2021-05-20 M emoria abdominal abdominal 05-18 21:02:18 21:02:18 l pain, pain, 17:00: [place] unspecifie unspecifie 00 d d 05/18/2021 05/20/2021 [facility] Nausea Nausea Problem 2020-2021-05-20 2021-05-20 Memoria with with 05-18 21:02:18 21:02:18 l vomiting, vomiting, 17:00: Herm sina unspecifie unspecifie 00 d d 05/18/2021 05/20/2021 [facility] Acute Acute Problem 2021-05-15 2021-05-15 M emoria tonsilliti tonsilliti 05-13 21:23:30 21:23:30 l s, s, 17:00: [place] unspecifie unspecifie 00 d d 05/13/2021 05/15/2021 [facility] Unspecifie Unspecifi Problem 2021-02-08 2021-02-08 Memoria d ed 02-02 07:26:20 07:26:20 l abdominal abdominal 17:00: Herm sina pain pain 00 02/02/2021 02/08/2021 GE[facility] santiago,[facility] Hematemesi Hematemes Problem 2017-112019-04-13 2019-04-13 Memoria s is 11-29 12:24:45 12:24:45 l 09/29/2018 04:24: Bartolome n 04/13/2019 48 [facility] Vomiting, Vomiting, Problem 2017-112019-04-13 2019-04-13 Memoria unspecifie unspecifie 11-24 12:24:45 12:24:45 l d d 06:00: [place] 09/24/2018 00 04/13/2019 [facility] Other Other Problem 2017-112019-02-20 2019-02-20 M emoria constipati constipati 12-14 14:09:15 14:09:15 l on on 10:50: [place] 10/13/2018 49 02/20/2019 GE[facility] santiago Discharge Discharge Problem 2015-06-21 2015-06-21 Memoria Diagnosis: Diagnosis: 06-18 07:14:59 07:14:59 l Abdominal Abdominal 05:00: Herm sina pain pain 00 06/18/2015 06/21/2015 [place] Discharge Discharge Problem 2015-02-20 2015-02-20 Memoria Diagnosis: Diagnosis: 02-18 20:26:27 20:26:27 l Head Head 05:00: Willie injury injury 00 02/18/2015 02/20/2015 [facility] Discharge Discharge Problem 2015-02-20 2015-02-20 Memyogesh Diagnosis: Diagnosis: 02-18 20:26:27 20:26:27 l Concussion Concussion 05:00: He rmann 00 5 02/20/2015 [place] Discharge Discharge Problem 2014-2014-12-11 2014-12-11 Memoria Diagnosis: Diagnosis: 12-09 16:24:18 16:24:18 l Knee pain, Knee pain, 06:00: He rmann right right 00 12/09/2014 12/11/2014 [facility] Allergies, Adverse Reactions, Alerts Allergy Allergy Status Severity Reaction(s) Onset Inactive Treating Comm ents Source Name Type Date Date Clinician Cephalos Propensi Active Rash 2021-11 Univer s porins ty to 05 ity of adverse 00:00: [place] reaction 00 [facility] Penicill Propensi Active Rash 2021-11 Univer s in ty to 05 ity of adverse 00:00: [place] reaction 00 [facility] Sulfur Propensi Active Rash 2021-11 Univers ty to 05 ity of adverse 00:00: [place] reaction 00 [facility] SULFUR DRUG Active High Rash 2021-11 Univers INGREDI 1-05 ity of 00:00: [place] 00 [facility] PENICILL DRUG Active High Rash 2021-11 Univers IN INGREDI -05 ity of 00:00: [place] 00 [facility] CEPHALOS Drug Active High Rash 2021-11 Univers PORINS Class -05 ity of 00:00: [place] 00 [facility] Penicill DA Active MO 2017-11 [facility] ins -19 Clear 00:00: [place] [facility] Cephalos DA Active MO 2017-11 [facility] porins -19 Clear 00:00: [place] [facility] Sulfa DA Active MO 2017-11 [facility] (Sulfona -19 Clear mide 00:00: [place] Antibiot 00 [facility]) [facility] Cephalos drug Active [facility] porins allergy Physici ans Penicill drug Active [facility] ins allergy [facility] ans sulfa drug Active [facility] allergy [facility] ans Sulfa drug Active [facility] Drugs allergy Physici ans cephalos cephalos Active Memori a porins porins l [place] penicill penicill Active Memori a in in l [place] sulfa sulfa Active Memoria drugs drugs l [place] penicill penicill Active Memori a ins ins l Willie NO KNOWN Drug Active Univers ALLERGIE Class ity of S [facility] Family History Family Member Diagnosis Comments Start [...] Date Stop Date Quantity Comments Source ASSERTION [facility] [employer] Exposure to 2022-09-07 2022-09-17 Not sure [facility] SARS-CoV-2 (event) 00:00:00 00:00:00 Medica l Branch Social History 2022-05-27 2022-05-27 [facility] 20:56:33 20:56:33 Sex Assigned At [birth year] [facility] [place] 00:00:00 00:00:00 Medical Branch Smoking Status Start Date Stop Date Source Tobacco smoking consumption [facility] Branch Social History [facility] Medications Ordered Filled Start Stop Current Ordering Indication Dosage Frequency Signature Comments Components Source Medication Medication Date Date Medication? Clinician (SIG) Name Name iopamidol 2021-11- No [id number] 100mL 100 mL, Univers (ISOVUE 11-17 Intravenou [...] 09/17/22 at 0230, Routine ibuprofen 2021-11 Yes [id number] 800mg Take 1 Univers 800 mg -05 tablet by ity of tablet 00:00: mouth [place] 00 every 8 Medical (eight) Branch hours as needed for Alternate with Tracy for pain scale 4-6. acetaminoph 0 Yes 1,000 mg = Memoria en 500 mg 7-18 2 tab, PO, l oral 12:20: Q6H, PRN [place] tablet. 00 Pain, X 14 day, # 56 tab, 0 Refill(s), Pharmacy: [facility] STORE #[id number], 162.56, cm, 05/27/22 15:53:00 CDT, Height, 114.091, kg, 05/27/22 15:53:00 CDT, Weight Colace 50 0 Yes 50 mg = 1 Mem oria mg oral 7-18 cap, PO, l capsule 12:20: BID, PRN Bartolome n 00 Constipati on, # 14 cap, 0 Refill(s), Pharmacy: [facility] STORE #[id number], 162.56, cm, 05/27/22 15:53:00 CDT, Height, 114.091, kg, 05/27/22 15:53:00 CDT, Weight ibuprofen Yes 600 mg = 1 Me moria 600 mg oral 7-18 tab, PO, l tablet 12:20: Q6H, PRN [place] 00 Pain, Take with food, X 14 day, # 56 tab, 0 Refill(s), Pharmacy: [facility] STORE #[id number], 162.56, cm, 05/27/22 15:53:00 CDT, Height, 114.091, kg, 05/27/22 15:53:00 CDT, Weight iron 0 Yes 325 mg = 1 Memoria sulfate 7-18 tab, PO, l (ferrous 12:20: Daily, # Mame nn sulfate) 00 30 tab, 2 325 mg oral Refill(s), tablet Pharmacy: [facility] STORE #[id number], 162.56, cm, 05/27/22 15:53:00 CDT, Height, 114.091, kg, 05/27/22 15:53:00 CDT, Weight tramadol 50 0 Yes 50 mg = 1 M emoria mg oral 7-18 tab, PO, l tablet 12:20: Q4H, PRN [place] 00 Pain, Attending: Kanu Jenkins MD LIZZY: [id number], X 7 day, # 12 tab, 0 Refill(s), Pharmacy: [facility] STORE #[id number], 162.56, cm, 05/27/22 15:53:00 CDT, Height, 114.091, kg, 05/27/22 15:53:00 CDT, Weight Vitafol-One 2021-0 Yes 1 cap, PO, Memoria oral 7-18 Daily, # l capsule 12:20: 30 cap, 11 Herm sina 00 Refill(s), Pharmacy: [facility] STORE #[id number], 162.56, cm, 05/27/22 15:53:00 CDT, Height, 114.091, kg, 05/27/22 15:53:00 CDT, Weight acetaminoph Yes 1,000 mg = Memoria en 500 mg 7-18 2 tab, PO, l oral 12:20: Q6H, PRN Willie tablet. 00 Pain, X 14 day, # 56 tab, 0 Refill(s), Pharmacy: [facility] STORE #[id number], 162.56, cm, 05/27/22 15:53:00 CDT, Height, 114.091, kg, 05/27/22 15:53:00 CDT, Weight Colace 50 0 Yes 50 mg = 1 Mem oria mg oral 7-18 cap, PO, l capsule 12:20: BID, PRN Bartolome n 00 Constipati on, # 14 cap, 0 Refill(s), Pharmacy: [facility] STORE #[id number], 162.56, cm, 05/27/22 15:53:00 CDT, Height, 114.091, kg, 05/27/22 15:53:00 CDT, Weight ibuprofen 2021-0 Yes 600 mg = 1 Me moria 600 mg oral 7-18 tab, PO, l tablet 12:20: Q6H, PRN Willie 00 Pain, Take with food, X 14 day, # 56 tab, 0 Refill(s), Pharmacy: [facility] STORE #[id number], 162.56, cm, 05/27/22 15:53:00 CDT, Height, 114.091, kg, 05/27/22 15:53:00 CDT, Weight iron Yes 325 mg = 1 Memoria sulfate 7-18 tab, PO, l (ferrous 12:20: Daily, # Mame nn sulfate) 00 30 tab, 2 325 mg oral Refill(s), [id number], 162.56, cm, 05/27/22 15:53:00 CDT, Height, 114.091, kg, 05/27/22 15:53:00 CDT, Weight tramadol 50 0 Yes 50 mg = 1 M emoria mg oral 7-18 tab, PO, l tablet 12:20: Q4H, PRN [place] 00 Pain, Attending: Kanu Jenkins MD LIZZY: [id number], X 7 day, # 12 tab, 0 Refill(s), [id number], 162.56, cm, 05/27/22 15:53:00 CDT, Height, 114.091, kg, 05/27/22 15:53:00 CDT, Weight Vitafol-One Yes 1 cap, PO, Memoria oral 7-18 Daily, # l capsule 12:20: 30 cap, 11 Herm sina 00 Refill(s), [id number], 162.56, cm, 05/27/22 15:53:00 CDT, Height, 114.091, kg, 05/27/22 15:53:00 CDT, Weight acetaminoph Yes 1,000 mg = Memoria en 500 mg 7-18 2 tab, PO, l oral 12:20: Q6H, PRN [place] tablet. 00 Pain, X 14 day, # 56 tab, 0 Refill(s), [id number], 162.56, cm, 05/27/22 15:53:00 CDT, Height, 114.091, kg, 05/27/22 15:53:00 CDT, Weight Colace 50 0 Yes 50 mg = 1 Mem oria mg oral 7-18 cap, PO, l capsule 12:20: BID, PRN Bartolome n 00 Constipati on, # 14 cap, 0 Refill(s), Pharmacy: [facility] STORE #[id number], 162.56, cm, 05/27/22 15:53:00 CDT, Height, 114.091, kg, 05/27/22 15:53:00 CDT, Weight ibuprofen 0 Yes 600 mg = 1 Me moria 600 mg oral 7-18 tab, PO, l tablet 12:20: Q6H, PRN [place] 00 Pain, Take with food, X 14 day, # 56 tab, 0 Refill(s), Pharmacy: [facility] STORE #[id number], 162.56, cm, 05/27/22 15:53:00 CDT, Height, 114.091, kg, 05/27/22 15:53:00 CDT, Weight iron 0 Yes 325 mg = 1 Memoria sulfate 7-18 tab, PO, l (ferrous 12:20: Daily, # Mame nn sulfate) 00 30 tab, 2 325 mg oral Refill(s), tablet Pharmacy: [facility] STORE #[id number], 162.56, cm, 05/27/22 15:53:00 CDT, Height, 114.091, kg, 05/27/22 15:53:00 CDT, Weight tramadol 50 0 Yes 50 mg = 1 M emoria mg oral 7-18 tab, PO, l tablet 12:20: Q4H, PRN [place] 00 Pain, Attending: Kanu Jenkins MD LIZZY: [id number], X 7 day, # 12 tab, 0 Refill(s), Pharmacy: [facility] STORE #[id number], 162.56, cm, 05/27/22 15:53:00 CDT, Height, 114.091, kg, 05/27/22 15:53:00 CDT, Weight Vitafol-One 0 Yes 1 cap, PO, Memoria oral 7-18 Daily, # l capsule 12:20: 30 cap, 11 Herm sina 00 Refill(s), Pharmacy: [facility] STORE #[id number], 162.56, cm, 05/27/22 15:53:00 CDT, Height, 114.091, kg, 05/27/22 15:53:00 CDT, Weight acetaminoph 2022-0 Yes 1,000 mg = Memoria en 500 mg 7-18 2 tab, PO, l oral 12:20: Q6H, PRN [place] tablet. 00 Pain, X 14 day, # 56 tab, 0 Refill(s), Pharmacy: [facility] STORE #[id number], 162.56, cm, 05/27/22 15:53:00 CDT, Height, 114.091, kg, 05/27/22 15:53:00 CDT, Weight Colace 50 0 Yes 50 mg = 1 Mem oria mg oral 7-18 cap, PO, l capsule 12:20: BID, PRN Bartolome n 00 Constipati on, # 14 cap, 0 Refill(s), Pharmacy: [facility] STORE #[id number], 162.56, cm, 05/27/22 15:53:00 CDT, Height, 114.091, kg, 05/27/22 15:53:00 CDT, Weight ibuprofen Yes 600 mg = 1 Me moria 600 mg oral 7-18 tab, PO, l tablet 12:20: Q6H, PRN [place] 00 Pain, Take with food, X 14 day, # 56 tab, 0 Refill(s), Pharmacy: [facility] STORE #[id number], 162.56, cm, 05/27/22 15:53:00 CDT, Height, 114.091, kg, 05/27/22 15:53:00 CDT, Weight iron Yes 325 mg = 1 Memoria sulfate 7-18 tab, PO, l (ferrous 12:20: Daily, # Mame nn sulfate) 00 30 tab, 2 325 mg oral Refill(s), tablet Pharmacy: [facility] STORE #[id number], 162.56, cm, 05/27/22 15:53:00 CDT, Height, 114.091, kg, 05/27/22 15:53:00 CDT, Weight tramadol 50 0 Yes 50 mg = 1 M emoria mg oral 7-18 tab, PO, l tablet 12:20: Q4H, PRN [place] 00 Pain, Attending: Kanu Jenkins MD LIZZY: [id number], X 7 day, # 12 tab, 0 Refill(s), Pharmacy: [facility] #[id number], 162.56, cm, 05/27/22 15:53:00 CDT, Height, 114.091, kg, 05/27/22 15:53:00 CDT, Weight Vitafol-One Yes 1 cap, PO, Memoria oral 7-18 Daily, # l capsule 12:20: 30 cap, 11 Herm sina 00 Refill(s), Pharmacy: [facility] #[id number], 162.56, cm, 05/27/22 15:53:00 CDT, Height, 114.091, kg, 05/27/22 15:53:00 CDT, Weight ibuprofen No Notes: Memori a 7-17 (Same as: l 17:00: Motrin) [place] 00 "Do Not Crush" Take with food. ibuprofen No Notes: Memori a 7-17 (Same as: l 17:00: Motrin) [place] 00 "Do Not Crush" Take with food. ibuprofen No Notes: Memori a 7-17 (Same as: l 17:00: Motrin) [place] 00 "Do Not Crush" Take with food. ibuprofen No Notes: Memori a 7-17 (Same as: l 17:00: Motrin) [place] 00 "Do Not Crush" Take with food. [...] CDT, 0 No 1 tab, Memoria Multivitami -17 Route: PO, l ns oral 14:00: Drug [...] en 7-17 acetaminop l 05:00: hen 4000 [place] 00 mg/day (4 gm/day). (Same as: Tylenol [...] 0.9% 7-17 (Same as: l 02:00: BD [place] Posiflush) Saline No Notes: Memoria Flush 0.9% 7-17 (Same as: l 02:00: BD [place] Posiflush) naloxone No Notes: Memoria 7-17 Same as l 01:00: Narcan [place] 00 naloxone No Notes: Memoria 7-17 Same as l 01:00: Narcan [place] 00 naloxone No Notes: Memoria 7-17 Same as l 01:00: Narcan [place] 00 naloxone No Notes: Memoria 7-17 Same as l 01:00: Narcan oxyCODONE No Notes: Memori a immediate [...] as: l release 00:26: Roxicodone Herm sina 00 ) ondansetron No Notes: Leonid indigo 7-17 (Same as: l 00:26: Zofran) [place] 00 MEDICATION WASTE Product Size: 4 mg Product Wasted: ___ mg promethazin No Notes: Do M emoria e 7-17 not give l 00:26: IV push. [place] 00 (Same as: Phenergan) oxyCODONE No Notes: Memori a immediate 7-17 (Same as: l release 00:26: Roxicodone Herm sina 00 ) ondansetron No Notes: Leonid indigo 7-17 (Same as: l 00:26: Zofran) [place] 00 MEDICATION WASTE Product Size: 4 mg Product Wasted: ___ mg promethazin No Notes: Do M emoria e 7-17 not give l 00:26: IV push. [place] 00 (Same as: Phenergan) metoclopram No Notes: Leonid indigo meche 7-17 (Same as: l 00:26: Reglan) [place] 00 nalbuphine No Notes: Memor ia 7-17 (Same As: l 00:26: Nubain) [place] 00 naloxone No Notes: Memoria 7-17 Same as l 00:26: Narcan metoclopram No Notes: Leonid indigo meche 7-17 (Same as: l 00:26: Reglan) [place] 00 nalbuphine No Notes: Memor ia 7-17 (Same As: l 00:26: Nubain) [place] 00 naloxone No Notes: Memoria 7-17 Same as l 00:26: Narcan [place] 00 oxyCODONE No Notes: Memori a immediate 7-17 (Same as: l release 00:26: Roxicodone Herm sina 00 ) ondansetron No Notes: Leonid indigo 7-17 (Same as: l 00:26: Zofran) [place] 00 MEDICATION WASTE Product Size: 4 mg [...] (ANES) 7-16 Drug form: l 17:07: SOLN, [place] 00 ONCE, Stop date: 05/28/22 12:07:00 CDT morphine 2021-0 No Route: Memoria Sulfate 7-16 EPIDURAL, l (ANES) 17:07: Drug form: Mame nn 00 INJ, ONCE, Stop date: 05/28/22 12:07:00 CDT midazolam 2021-0 No Route: IV, Me moria (ANES) 7-16 Drug form: l 17:07: SOLN, [place] 00 ONCE, Stop date: 05/28/22 12:07:00 CDT morphine 2021-0 No Route: Memoria Sulfate 7-16 EPIDURAL, l (ANES) 17:07: Drug form: Mame nn 00 INJ, ONCE, Stop date: 05/28/22 12:07:00 CDT midazolam 2021-0 No Route: IV, Me moria (ANES) 7-16 Drug form: l 17:07: SOLN, [place] 00 ONCE, Stop date: 05/28/22 12:07:00 CDT morphine 2021-0 No Route: Memoria Sulfate 7-16 EPIDURAL, l (ANES) 17:07: Drug form: Mame nn 00 INJ, ONCE, Stop date: 05/28/22 12:07:00 CDT midazolam 2021-0 No Route: IV, Me moria (ANES) 7-16 Drug form: l 17:07: SOLN, [place] 00 ONCE, Stop date: 05/28/22 12:07:00 CDT tramadol 2021-0 No Notes: Not Mem oria 7-16 to exceed l 17:03: 400mg/day. [place] 00 (Same As: Ultram) tramadol 0 No Notes: Not Mem oria 7-16 to exceed l 17:03: 400mg/day. [place] 00 (Same As: Ultram) tramadol 0 No Notes: Not Mem oria 7-16 to exceed l 17:03: 400mg/day. [place] 00 (Same As: Ultram) tramadol 0 No Notes: Not Mem oria 7-16 to exceed l 17:03: 400mg/day. [place] 00 (Same As: Ultram) atropine-di No Notes: [...] Memoria 7-16 Same as l 17:00: Narcan Lactated No 1,000 mL, Leonid indigo Ringers 7-16 1,000 l (Bolus) IV 17:00: ml/hr, Infuse [...] 7-16 (Same As: l 0.025 17:00: Lomotil) [place] mg-2.5 mg 00 MAX Adult oral tablet [...] Memoria 7-16 Same as l 17:00: Narcan Lactated No 1,000 mL, Leonid indigo Ringers [...] (Same As: l 17:00: Cyklokapro n) ketOROLAC 2022-0 Yes 4 days Memor ia 7-16 l [...] Matrix atropine-di No Notes: Leonid indigo phenoxylate -16 (Same As: l 0.025 17:00: Lomotil) [place] mg-2.5 mg 00 MAX Adult oral tablet dose = 8 tabs/day carboprost No Notes: Memor ia 7-16 (Same As: l 17:00: Hemabate) tranexamic No Notes: Memor ia acid 16 (Same As: l 17:00: Cyklokapro n) ketOROLAC Yes 4 days Memor ia -16 l 17:00: MEDICATION WASTE Product Size: 30 [...] 0.9% - (Same as: l 16:58: BD [place] 00 Posiflush) Lactated No 1,000 mL, Leonid [...] a 7-16 (Same As: l 16:58: Dulcolax, Bisco-Lax) lanolin [...] indigo 7-16 (Same as: l 16:58: Mylicon) [place] 00 oxytocin 30 No Notes: Leonid indigo units in NS - Hazardous l 500 mL 16:58: Drug Group Mame nn (Titrate) 00 3:Reproduc IV 30 unit tive risk Hazardous Drug -- Refer to safe handling procedure PPE Matrix Saline No Notes: Memoria Flush 0.9% -16 (Same as: l 16:58: BD [place] 00 Posiflush) Lactated No 1,000 mL, Leonid indigo Ringers IV 05-28 Rate: 125 l 1,000 mL 16:58: ml/hr, Willie 00 Infuse over: 8 hr, Route: IV, Dosing Weight 114.091 kg, Total Volume: 1,000, see special instructio n for rate while completing infusion from recovery for the 20 Units of Oxytocin., Start date: 05/28/22 11:58:00 CDT, Duration.. . bisacodyl No Notes: Memori a -16 (Same As: l 16:58: Dulcolax, [place] 00 Bisco-Lax) lanolin No 1 appl, Memoria [...] No Notes: Leonid indigo units in NS -16 Hazardous l 500 mL 16:58: Drug Group Mame nn (Titrate) 00 3:Reproduc IV 30 unit tive risk Hazardous Drug -- Refer to safe handling procedure PPE Matrix Saline No Notes: Memoria Flush 0.9% -16 (Same as: l 16:58: BD [place] Posiflush) Lactated 2022-0 No 1,000 mL, Leonid indigo Ringers IV [...] 05-28 (Same as: l 16:58: BD Posiflush) famotidine No Route: IV, M emoria (ANES) 05-28 Drug form: l 16:37: INJ, ONCE, [place] Stop date: 05/28/22 11:37:00 CDT sodium No Route: PO, Memor ia citrate 05-28 Drug Form: l (ANES) 16:37: INJ, ONCE, Mame nn 00 Stop date: 05/28/22 11:37:00 CDT ondansetron 2021-0 No Route: IV, Memoria (ANES) 7-16 Drug form: l 16:37: INJ, ONCE, [place] Stop date: 05/28/22 11:37:00 CDT lidocaine 2021-0 No Route: Memori a (ANES) 7-16 EPIDURAL, l 16:37: Drug form: [place] 00 INJ, ONCE, Stop date: 05/28/22 11:37:00 CDT sodium 2021-0 No Route: Memoria bicarbonate 7-16 EPIDURAL, l (ANES) 16:37: Drug form: Mame nn 00 INJ, ONCE, Stop date: 05/28/22 11:37:00 CDT famotidine 2021-0 No Route: IV, M emoria (ANES) 7-16 Drug form: l 16:37: INJ, ONCE, [place] 00 Stop date: 05/28/22 11:37:00 CDT sodium 2021-0 No Route: PO, Memor ia citrate 7-16 Drug Form: l (ANES) 16:37: INJ, ONCE, Mame nn Stop date: 05/28/22 11:37:00 CDT ondansetron 2021-0 No Route: IV, Memoria (ANES) 7-16 Drug form: l 16:37: INJ, ONCE, [place] 00 Stop date: 05/28/22 11:37:00 CDT lidocaine 2021-0 No Route: Memori a (ANES) 7-16 EPIDURAL, l 16:37: Drug form: [place] 00 INJ, ONCE, Stop date: 05/28/22 11:37:00 CDT sodium 2021-0 No Route: Memoria bicarbonate 7-16 EPIDURAL, l (ANES) 16:37: Drug form: Mame nn 00 INJ, ONCE, Stop date: 05/28/22 11:37:00 CDT famotidine 2021-0 No Route: IV, M emoria (ANES) 7-16 Drug form: l 16:37: INJ, ONCE, [place] Stop date: 05/28/22 11:37:00 CDT sodium 2021-0 No Route: PO, Memor ia citrate 7-16 Drug Form: l (ANES) 16:37: INJ, ONCE, Mame nn Stop date: 05/28/22 11:37:00 CDT ondansetron 0 No Route: IV, Memoria (ANES) 7- Drug form: l 16:37: INJ, ONCE, [place] Stop date: 05/28/22 11:37:00 CDT lidocaine 2021-0 No Route: Memori a (ANES) 7-16 EPIDURAL, l 16:37: Drug form: [place] 00 INJ, ONCE, Stop date: 05/28/22 11:37:00 CDT sodium 0 No Route: Memoria bicarbonate 7-16 EPIDURAL, l (ANES) 16:37: Drug form: Mame nn 00 INJ, ONCE, Stop date: 05/28/22 11:37:00 CDT famotidine No Route: IV, M emoria (ANES) 05-28 Drug form: l 16:37: INJ, ONCE, [place] [...] 05-28 Drug form: l unit 16:33: SOLN, [place] 00 Start date: 05/28/22 11:33:00 CDT, Stop date: 05/28/22 12:33:00 CDT oxytocin 2022-0 No Route: IV, Mem oria (ANES) 30 716 Drug form: l unit 16:33: SOLN, [place] 00 Start date: 05/28/22 11:33:00 CDT, Stop date: 05/28/22 12:33:00 CDT oxytocin No Route: IV, Mem oria (ANES) 30 716 Drug form: l unit 16:33: SOLN, [place] Start date: 05/28/22 11:33:00 CDT, Stop date: 05/28/22 12:33:00 CDT oxytocin No Route: IV, Mem oria (ANES) 30 716 Drug form: l unit 16:33: SOLN, [place] Start date: 05/28/22 11:33:00 CDT, Stop date: 05/28/22 12:33:00 CDT acetaminoph No Notes: Max Memoria en 7-16 acetaminop l 16:23: hen 4000 [place] 00 mg/day (4 gm/day). (Same as: Tylenol Extra Strength) oxyCODONE No Notes: Memori a immediate 7-16 (Same as: l release 16:23: Roxicodone ) hydromorpho No Notes: Leonid indigo ne 7-16 Same as l 16:23: Dilaudid ondansetron No Notes: Leonid indigo 7-16 (Same as: l 16:23: Zofran) MEDICATION WASTE Product Size: 4 mg Product Wasted: ___ mg naloxone No Notes: Memoria 7-16 Same as l 16:23: Narcan nalbuphine No Notes: Memor ia 7-16 (Same As: l 16:23: Nubain) acetaminoph No Notes: Max Memoria en 7-16 [...] Memoria 7-16 Same as l 16:23: Narcan [place] 00 nalbuphine No Notes: Memor ia 7-16 (Same As: l 16:23: Nubain) [place] acetaminoph No Notes: Max Memoria en 7-16 acetaminop l 16:23: hen 4000 [place] 00 mg/day (4 gm/day). (Same as: Tylenol Extra Strength) oxyCODONE No Notes: Memori a immediate 7-16 (Same as: l release 16:23: Roxicodone Herm sina 00 ) hydromorpho No Notes: Leonid indigo ne 7-16 Same as l 16:23: Dilaudid [place] ondansetron No Notes: Leonid indigo 7-16 (Same as: l 16:23: Zofran) [place] 00 MEDICATION WASTE Product Size: 4 mg Product Wasted: ___ mg naloxone No Notes: Memoria 7-16 Same as l 16:23: Narcan [place] 00 nalbuphine No Notes: Memor ia 7-16 (Same As: l 16:23: Nubain) [place] 00 acetaminoph No Notes: Max Memoria en 7-16 acetaminop l 16:23: hen 4000 [place] 00 mg/day (4 gm/day). (Same as: Tylenol Extra Strength) oxyCODONE No Notes: Memori a immediate 7-16 (Same as: l release 16:23: Roxicodone Herm sina 00 ) hydromorpho No Notes: Leonid indigo ne 7-16 Same as l 16:23: Dilaudid [place] 00 ondansetron No Notes: Leonid indigo 05-28 (Same as: l 16:23: Zofran) MEDICATION WASTE Product Size: 4 mg Product Wasted: ___ mg naloxone No Notes: Memoria 05-28 Same as l 16:23: Narcan nalbuphine No [...] CDT, Stop date: 05/28/22 12:08:00 CDT vancomycin 2022-0 No Route: IV, M emoria (ANES) 05-28 Drug form: l mg + Sodium 16:08: INJ, Bartolome n Chloride 00 Dosing 0.9% IV Weight (ANES) 500 114.1, kg, mL Start date: 05/28/22 11:08:00 CDT, Stop date: 05/28/22 12:08:00 CDT gentamicin 0 No Route: IV, Jim lezamaria (ANES) 05-28 Drug form: l mg 16:08: INJ, Start [place] date: 05/28/22 11:08:00 CDT, Stop date: 05/28/22 12:08:00 CDT vancomycin No Route: IV, Jim lezamaria (ANES) 05-28 Drug form: l mg + Sodium 16:08: INJ, Bartolome n Chloride 00 Dosing 0.9% IV Weight (ANES) 500 114.1, kg, mL Start date: 05/28/22 11:08:00 CDT, Stop date: 05/28/22 12:08:00 CDT phenylephri 0 No Route: Leonid indigo ne (ANES) 7-16 IVP, Drug l 100 16:07: form: INJ, [place] microgram Start date: 05/28/22 11:07:00 CDT, Stop date: 05/28/22 12:07:00 CDT phenylephri 2021-0 No Route: Leonid indigo ne (ANES) 7-16 IVP, Drug l 100 16:07: form: INJ, [place] microgram 00 Start date: 05/28/22 11:07:00 CDT, [...] CDT, Stop date: 05/28/22 12:07:00 CDT azithromyci 2021-0 No Route: IV, Memoria n (ANES) 7-16 Drug form: l 500 mg 16:06: INJ, Start Mame nn date: 05/28/22 11:06:00 CDT, Stop date: 05/28/22 12:06:00 CDT azithromyci 2021-0 No Route: IV, Memoria n (ANES) 7-16 Drug form: l 500 mg 16:06: INJ, Start Mame nn date: 05/28/22 11:06:00 CDT, Stop date: 05/28/22 12:06:00 CDT azithromyci 2021-0 No Route: IV, Memoria n (ANES) 7-16 Drug form: l 500 mg 16:06: INJ, Start Mame nn date: 05/28/22 11:06:00 CDT, Stop date: 05/28/22 12:06:00 CDT azithromyci 2021-0 No Route: IV, Memoria n (ANES) 7-16 Drug form: l 500 mg 16:06: INJ, Start Mame nn date: 05/28/22 11:06:00 CDT, Stop date: 05/28/22 12:06:00 CDT Lactated 2021-0 No Route: IV, Mem oria Ringers 7-16 Total l Injection 16:03: Volume: Mame nn IV (ANES) 00 1,000, 1000 mL Start date: 05/28/22 11:03:00 CDT, Stop date: 05/28/22 12:03:00 CDT Lactated 2021-0 No Route: IV, Mem oria Ringers 7-16 Total l Injection 16:03: Volume: Mame nn IV (ANES) 00 1,000, 1000 mL Start date: 05/28/22 11:03:00 CDT, Stop date: 05/28/22 12:03:00 CDT Lactated 2021-0 No Route: IV, Mem oria Ringers 7-16 [...] Leonid indigo 7-15 (Same l 22:03: as:Cytotec [place] ) Take with food Hazardous Drug Group 3:Reproduc tive risk Hazardous Drug -- Refer to safe handling procedure PPE Matrix 25 microgram = 1/4 tab of 100 microgram. misoprostol No Notes: Leonid indigo 7-15 (Same l 22:03: as:Cytotec [place] ) Take with food Hazardous Drug Group 3:Reproduc tive risk Hazardous Drug -- Refer to safe handling procedure PPE Matrix 25 microgram = 1/4 tab of 100 microgram. misoprostol No Notes: Leonid indigo 7-15 (Same l 22:03: as:Cytotec [place] ) Take with food Hazardous Drug Group 3:Reproduc tive risk Hazardous Drug -- Refer to safe handling procedure PPE Matrix 25 microgram = 1/4 tab of 100 microgram. misoprostol No Notes: Leonid indigo 7-15 (Same l 22:03: as:Cytotec [place] ) Take with food Hazardous Drug Group 3:Reproduc tive risk Hazardous Drug -- Refer to safe handling procedure PPE Matrix 25 microgram = 1/4 tab of 100 microgram. vancomycin 2000 mg: Me moria 7-15 infuse l 21:00: over 2.5 [place] 00 hours vancomycin No 2000 mg: Me moria 7-15 infuse l 21:00: over 2.5 [place] 00 hours vancomycin No 2000 mg: Me moria 7-15 infuse l 21:00: over 2.5 [place] 00 hours vancomycin 0 No 2000 mg: Me moria 7-15 infuse l 21:00: over 2.5 [place] 00 hours Vancomycin No PHARMACY [facility] 05-27 USE ONLY, l Dosing 20:01: Route: [place] Consult 56 MISC, PRN, Drug form: MISC, PRN Other -See Comment, Start date: 05/27/22 15:01:56 CDT, Stop date: 06/26/22 15:01:56 CDT, 30 day Vancomycin No PHARMACY [facility] 05-27 USE ONLY, l Dosing 20:01: Route: [place] Consult 56 MISC, PRN, Drug form: MISC, PRN Other -See Comment, Start date: 05/27/22 15:01:56 CDT, Stop date: 06/26/22 15:01:56 CDT, 30 day Vancomycin No PHARMACY [facility] 05-27 USE ONLY, l Dosing 20:01: Route: [place] Consult 56 MISC, PRN, Drug form: MISC, PRN Other -See Comment, Start date: 05/27/22 15:01:56 CDT, Stop date: 06/26/22 15:01:56 CDT, 30 day Vancomycin No PHARMACY [facility] 05-27 USE ONLY, l Dosing 20:01: Route: [place] Consult 56 MISC, PRN, Drug form: MISC, PRN Other -See Comment, Start date: 05/27/22 15:01:56 CDT, Stop date: 06/26/22 15:01:56 CDT, 30 day acetaminoph No Notes: Max Memoria en 05-27 acetaminop l 20:00: hen 4000 [place] 00 mg/day (4 gm/day). (Same as: Tylenol Extra Strength) ibuprofen No Notes: Memori a 05-27 (Same as: l 20:00: Motrin) [place] 00 "Do Not Crush" Take with food. Lactated No 1,000 mL, Leonid indigo Ringers -15 1,000 l (Bolus) IV 20:00: ml/hr, Mame nn 00 Infuse Over: 1 hr, Route: IV, 1,000, Drug form: INJ, ONCALL, Dosing Weight 114.091 kg, Start date: 05/27/22 15:00:00 CDT, Duration: 1 doses or times, For OB hemorrhage per physician direction, 0 oxytocin No Notes: Memoria 7-15 (Same as: l 20:00: Pitocin) [place] 00 Hazardous Drug Group 3:Reproduc tive risk Hazardous Drug -- Refer to safe handling procedure PPE Matrix misoprostol No Notes: Leonid indigo 7-15 (Same l 20:00: as:Cytotec [place] 00 ) Hazardous Drug Group 3:Reproduc tive [...] 7-15 (Same As: l 0.025 20:00: Lomotil) [place] mg-2.5 mg 00 MAX Adult oral tablet dose = 8 tabs/day carboprost No Notes: Memor ia 7-15 (Same As: l 20:00: Hemabate) tranexamic No Notes: Memor ia acid 7-15 (Same As: l 20:00: Cyklokapro [place] 00 n) acetaminoph No Notes: Max Memoria en 7-15 acetaminop l 20:00: hen 4000 mg/day (4 gm/day). (Same as: Tylenol Extra Strength) ibuprofen No Notes: Memori a 7-15 (Same as: l 20:00: Motrin) "Do Not Crush" Take with food. Lactated [...] indigo ovine 7-15 (Same l 20:00: as:Metherg [place] 00 ine) Hazardous Drug Group 3:Reproduc tive risk Hazardous Drug -- Refer to safe handling procedure PPE Matrix atropine-di No Notes: Leonid indigo phenoxylate 7-15 (Same As: l 0.025 20:00: Lomotil) [place] mg-2.5 mg 00 MAX Adult oral tablet dose = 8 tabs/day carboprost No Notes: Memor ia 7-15 (Same As: l 20:00: Hemabate) [place] 00 tranexamic No Notes: Memor ia acid 7-15 (Same As: l 20:00: Cyklokapro [place] 00 n) acetaminoph No Notes: Max Memoria en 7-15 acetaminop l 20:00: hen 4000 mg/day (4 gm/day). (Same as: [...] Memoria 7-15 (Same as: l 20:00: Pitocin) [place] 00 Hazardous Drug Group 3:Reproduc tive risk Hazardous Drug -- Refer to safe handling procedure PPE Matrix misoprostol No Notes: Leonid indigo 7-15 (Same l 20:00: as:Cytotec [place] ) Hazardous Drug Group 3:Reproduc tive risk Hazardous Drug -- Refer to safe handling procedure PPE Matrix Take with food methylergon No Notes: Leonid indigo ovine 7-15 (Same l 20:00: as:Metherg [place] 00 ine) Hazardous Drug Group 3:Reproduc tive risk Hazardous Drug -- Refer to safe handling procedure PPE Matrix atropine-di No Notes: Leonid indigo phenoxylate 7-15 (Same As: l 0.025 20:00: Lomotil) [place] mg-2.5 mg 00 MAX Adult oral tablet dose = 8 tabs/day carboprost No Notes: Memor ia 7-15 (Same As: l 20:00: Hemabate) [place] 00 tranexamic No Notes: Memor ia acid 7-15 (Same As: l 20:00: Cyklokapro n) acetaminoph No Notes: Max Memoria en 7-15 acetaminop l 20:00: hen 4000 mg/day (4 gm/day). (Same as: Tylenol Extra Strength) ibuprofen No Notes: Memori a 7-15 (Same as: l 20:00: Motrin) "Do Not Crush" Take with food. Lactated [...] ia 7-15 (Same As: l 20:00: Hemabate) tranexamic No Notes: Memor ia acid 7-15 (Same As: l 20:00: Cyklokapro [place] 00 n) Lactated No 1,000 mL, Leonid indigo Ringers 7-15 Rate: 125 l Injection 19:52: ml/hr, Bartolome n IV 1,000 mL 00 Infuse over: 8 hr, Route: IV, Dosing Weight 114.091 kg, Total Volume: 1,000, see special instructio ns when infusing 20 Units of Oxytocin., Start date: 05/27/22 14:52:00 CDT, Duration: 30 day, Stop date: 06/26/22 14:51:00 CDT... oxytocin No Notes: Leonid indigo units in NS 7-15 Hazardous l 500 mL 19:52: Drug Group Mame nn (Bolus) IV 00 3:Reproduc 10.02 unit tive risk Hazardous Drug -- Refer to safe handling procedure PPE Matrix oxytocin No Notes: Leonid indigo units in NS 7-15 Hazardous l 500 mL IV 19:52: Drug Group He rmann 19.98 unit 00 3:Reproduc tive risk Hazardous Drug -- Refer to safe handling procedure PPE Matrix butorphanol No Notes: Leonid indigo 7-15 (Same As: l 19:52: Stadol) MEDICATION WASTE Product Size: 2 mg Product Wasted: ___ mg Lactated No 1,000 mL, Leonid indigo Ringers 7-15 Rate: 125 l Injection 19:52: ml/hr, Bartolome n IV 1,000 mL 00 Infuse over: 8 hr, Route: IV, Dosing Weight 114.091 kg, Total Volume: 1,000, see special instructio ns when infusing 20 Units of Oxytocin., Start date: 05/27/22 14:52:00 CDT, Duration: 30 day, Stop date: 06/26/22 14:51:00 CDT... oxytocin 0 No Notes: Leonid indigo units in NS [...] indigo 7-15 (Same As: l 19:52: Stadol) [place] 00 MEDICATION WASTE Product Size: 2 mg Product Wasted: ___ mg oxyCODONE No Notes: Memori a immediate 7-15 (Same as: l release 19:52: Roxicodone Herm sina ) ondansetron No Notes: Leonid indigo 7-15 (Same as: l 19:52: Zofran) [place] 00 MEDICATION WASTE Product Size: 4 mg Product Wasted: ___ mg lidocaine No Notes: Memori a 1% 7-15 Preservati l injectable 19:52: ve free. Her roberts solution (Same as: Xylocaine MPF) oxyCODONE No Notes: Memori a immediate 7-15 (Same as: l release 19:52: Roxicodone Herm sina ) lidocaine No Notes: Memori a 1% 7-15 Preservati l 19:52: ve free. Willie (Same as: Xylocaine MPF) terbutaline No Notes: Leonid indigo 7-15 DO NOT l 19:52: USE IN [place] [employer] (Same As: Brethine) Dermoplast No Notes: [...] Refer to safe handling procedure PPE Matrix ondansetron No Notes: Leonid indigo 7-15 (Same as: l 19:52: Zofran) [place] 00 MEDICATION WASTE Product Size: 4 mg Product Wasted: ___ mg lidocaine No Notes: Memori a 1% 7-15 Preservati l injectable 19:52: ve free. Her roberts solution 00 (Same as: Xylocaine MPF) lidocaine No Notes: Memori a 1% 7-15 Preservati l 19:52: ve free. [place] (Same as: Xylocaine MPF) terbutaline No Notes: Leonid indigo 7-15 DO NOT l 19:52: USE IN Willie [employer] (Same As: Brethine) Dermoplast No Notes: [...] indigo 7-15 (Same As: l 19:52: Stadol) [place] 00 MEDICATION WASTE Product Size: 2 mg Product Wasted: ___ mg oxyCODONE No Notes: Memori a immediate 7-15 (Same as: l release 19:52: Roxicodone Herm sina ) ondansetron No Notes: Leonid indigo 7-15 (Same as: l 19:52: Zofran) [place] MEDICATION WASTE Product Size: 4 mg Product Wasted: ___ mg lidocaine No Notes: Memori a 1% 7-15 Preservati l injectable 19:52: ve free. Her roberts solution (Same as: Xylocaine MPF) lidocaine No Notes: Memori a 1% 7-15 Preservati l 19:52: ve free. [place] (Same as: Xylocaine MPF) terbutaline No Notes: Leonid indigo 7-15 DO NOT l 19:52: USE IN [place] [employer] (Same As: Brethine) Dermoplast No Notes: Memor ia Pain 15 (Same As: l Relieving 19:52: [facility]oplast [facility] 20%-0.5% 00 ) WASTE: topical Aerosol - [...] day, Stop date: 06/26/22 14:51:00 CDT... oxytocin No Notes: Leonid indigo units in [...] indigo 7-15 (Same As: l 19:52: Stadol) [place] 00 MEDICATION WASTE Product Size: 2 mg Product Wasted: ___ mg oxyCODONE No Notes: Memori a immediate 7-15 (Same as: l release 19:52: Roxicodone Herm sina ) ondansetron No Notes: Leonid indigo 7-15 (Same as: l 19:52: Zofran) [place] MEDICATION WASTE Product Size: 4 mg Product Wasted: ___ mg lidocaine No Notes: Memori a 1% 7-15 Preservati l injectable 19:52: ve free. Her roberts solution (Same as: Xylocaine MPF) lidocaine No Notes: Memori a 1% 7-15 Preservati l 19:52: ve free. [place] 00 (Same as: Xylocaine MPF) terbutaline No Notes: Leonid indigo 7-15 DO NOT l 19:52: USE IN [place] [employer] (Same As: Brethine) Dermoplast No Notes: [...] to safe handling procedure PPE Matrix ferrous 0 Yes PO, 0 Memoria sulfate 7-07 Refill(s) l 23:10: [place] 00 2021-0 Yes PO, Daily, Mem oria Complete 7-07 0 l with DHA 23:10: Refill(s) Herm sina 00 ferrous 2021-0 Yes PO, 0 Memoria sulfate 7-07 Refill(s) l 23:10: [place] 00 2021-0 Yes PO, Daily, Mem oria Complete 7-07 0 l with DHA 23:10: Refill(s) Herm sina 00 ferrous 0 Yes PO, 0 Memoria sulfate 7-07 Refill(s) l 23:10: [place] 00 0 Yes PO, Daily, Mem oria Complete 7-07 0 l with DHA 23:10: Refill(s) Herm sina 00 ferrous 0 Yes PO, 0 Memoria sulfate 7-07 Refill(s) l 23:10: [place] 00 0 Yes PO, Daily, Mem oria Complete 7-07 0 l with DHA 23:10: Refill(s) Herm sina 00 Zofran ODT Yes 4 mg = 1 Mem oria 7-07 tab, PO, l 23:09: TID, PRN [place] 00 Nausea / Vomiting, Dissolve tab under tongue, # 10 tab, 0 Refill(s) Zofran ODT Yes 4 mg = 1 Mem oria 7-07 tab, PO, l 23:09: TID, PRN [place] 00 Nausea / Vomiting, Dissolve tab under tongue, # 10 tab, 0 Refill(s) Zofran ODT Yes 4 mg = 1 Mem oria 7-07 tab, PO, l 23:09: TID, PRN [place] 00 Nausea / Vomiting, Dissolve tab under tongue, # 10 tab, 0 Refill(s) Zofran ODT Yes 4 mg = 1 Mem oria 7-07 tab, PO, l 23:09: TID, PRN [place] 00 Nausea / Vomiting, Dissolve tab under tongue, # 10 tab, 0 Refill(s) Metoclopram 2020-11 Yes 10 mg = 1 M emoria meche 10 MG 2-16 tab, PO, l Oral Tablet 21:22: QID, X 10 H ermann [Reglan] day, # 40 tab, 0 Refill(s), Pharmacy: [id number], 162.56, cm, 10/28/21 12:01:00 [facility], Height, 48.182, kg, 10/28/21 12:01:00 [facility], Weight Metoclopram 2020-11 Yes 10 mg = 1 M emoria meche 10 MG 2-16 tab, PO, l Oral Tablet 21:22: QID, X 10 H ermann [Reglan] day, # 40 tab, 0 Refill(s), Pharmacy: [facility] #[id number], 162.56, cm, 10/28/21 12:01:00 [facility], Height, 48.182, kg, 10/28/21 12:01:00 [facility], Weight Metoclopram 2020-11 Yes 10 mg = 1 M emoria meche 10 MG 2-16 tab, PO, l Oral Tablet 21:22: QID, X 10 H ermann [Reglan] day, # 40 tab, 0 Refill(s), Pharmacy: [facility] #[id number], 162.56, cm, 10/28/21 12:01:00 [facility], Height, 48.182, kg, 10/28/21 12:01:00 [facility], Weight Metoclopram 2020-11 Yes 10 mg = 1 M emoria meche 10 MG 2-16 tab, PO, l Oral Tablet 21:22: QID, X 10 H ermann [Reglan] day, # 40 tab, 0 Refill(s), Pharmacy: [facility] #[id number], 162.56, cm, 10/28/21 12:01:00 [facility], Height, 48.182, kg, 10/28/21 12:01:00 [facility], Weight Saline 2020-11 No Notes: Memoria Flush 0.9% 2-16 Same as: l 18:06: BD [place] 00 Posiflush Sterile Sodium 2020-11 No 1,000 mL, Memori a Chloride 2-16 1000 l 0.9% 18:06: ml/hr, [place] (Bolus) IV 00 Infuse Over: 1 hr, Route: IV, 1,000, Drug form: INJ, ONCE, Priority: STAT, Dosing Weight 101.045 kg, Start date: 10/28/21 12:06:00 [facility], Stop date: 10/28/21 12:06:00 [facility], 0 Reglan 2020-11 No Notes: Memoria 2-16 (Same as: l 18:06: Reglan) [place] 00 Saline 2020-11 No Notes: Memoria Flush 0.9% 2-16 Same as: l 18:06: BD [place] 00 Posiflush Sterile Sodium 2020-11 No 1,000 mL, Memori a Chloride 2-16 1000 l 0.9% 18:06: ml/hr, [place] (Bolus) IV 00 Infuse Over: 1 hr, Route: IV, 1,000, Drug form: INJ, ONCE, Priority: STAT, Dosing Weight 101.045 kg, Start date: 10/28/21 12:06:00 [facility], Stop date: 10/28/21 12:06:00 [facility], 0 Reglan 2020-11 No Notes: Memoria 2-16 (Same as: l 18:06: Reglan) [place] 00 Saline 2020-11 No Notes: Memoria Flush 0.9% 2-16 Same as: l 18:06: BD [place] 00 Posiflush Sterile Sodium 2020-11 No 1,000 mL, Memori a Chloride 2-16 1000 l 0.9% 18:06: ml/hr, [place] (Bolus) IV 00 Infuse Over: 1 hr, Route: IV, 1,000, Drug form: INJ, ONCE, Priority: STAT, Dosing Weight 101.045 kg, Start date: 10/28/21 12:06:00 [facility], Stop date: 10/28/21 12:06:00 [facility], 0 Reglan 2020-11 No Notes: Memoria 2-16 (Same as: l 18:06: Reglan) [place] 00 Saline 2020-11 No Notes: Memoria Flush 0.9% 2-16 Same as: l 18:06: BD [place] 00 Posiflush Sterile Sodium 2020-11 No 1,000 mL, Memori a Chloride 2-16 1000 l 0.9% 18:06: ml/hr, [place] (Bolus) IV 00 Infuse Over: 1 hr, Route: IV, 1,000, Drug form: INJ, ONCE, Priority: STAT, Dosing Weight 101.045 kg, Start date: 10/28/21 12:06:00 [facility], Stop date: 10/28/21 12:06:00 [facility], 0 Reglan 2020-11 No Notes: Memoria 2-16 (Same as: l 18:06: Reglan) [place] Levofloxaci 2020-0 Yes 750 mg = 1 Memoria n 750 MG 7-06 tab, PO, l Oral Tablet 05:05: Daily, X 5 [place] [Levaquin] day, # 5 tab, 0 Refill(s), Pharmacy: [facility] #[id number], 162.56, cm, 05/17/21 21:44:00 CDT, Height, 101.045, kg, 05/17/21 21:44:00 CDT, Weight Ondansetron 2020-0 Yes 4 mg = 1 Me moria 4 MG Oral 7-06 tab, PO, l Tablet 05:05: TID, X 3 [place] [Zofran] day, # 9 tab, 0 Refill(s), Pharmacy: [facility] #[id number], 162.56, cm, 05/17/21 21:44:00 CDT, Height, 101.045, kg, 05/17/21 21:44:00 CDT, Weight Levofloxaci 2020-0 Yes 750 mg = 1 Memoria n 750 MG 7-06 tab, PO, l Oral Tablet 05:05: Daily, X 5 [place] [Levaquin] day, # 5 tab, 0 Refill(s), Pharmacy: [facility] #[id number], 162.56, cm, 05/17/21 21:44:00 CDT, Height, 101.045, kg, 05/17/21 21:44:00 CDT, Weight Ondansetron 2020-0 Yes 4 mg = 1 Me moria 4 MG Oral 7-06 tab, PO, l Tablet 05:05: TID, X 3 [place] [Zofran] 00 day, # 9 tab, 0 Refill(s), Pharmacy: [facility] #[id number], 162.56, cm, 05/17/21 21:44:00 CDT, Height, 101.045, kg, 05/17/21 21:44:00 CDT, Weight Levofloxaci 2020-0 Yes 750 mg = 1 Memoria n 750 MG 7-06 tab, PO, l Oral Tablet 05:05: Daily, X 5 [place] [Levaquin] day, # 5 tab, 0 Refill(s), Pharmacy: [facility] #[id number], 162.56, cm, 05/17/21 21:44:00 CDT, Height, 101.045, kg, 05/17/21 21:44:00 CDT, Weight Ondansetron 2020-0 Yes 4 mg = 1 Me moria 4 MG Oral 7-06 tab, PO, l Tablet 05:05: TID, X 3 [place] [Zofran] day, # 9 tab, 0 Refill(s), Pharmacy: [facility] #[id number], 162.56, cm, 05/17/21 21:44:00 CDT, Height, 101.045, kg, 05/17/21 21:44:00 CDT, Weight Levofloxaci 2020-0 Yes 750 mg = 1 Memoria n 750 MG 7-06 tab, PO, l Oral Tablet 05:05: Daily, X 5 [place] [Levaquin] day, # 5 tab, 0 Refill(s), Pharmacy: [facility] #[id number], 162.56, cm, 05/17/21 21:44:00 CDT, Height, 101.045, kg, 05/17/21 21:44:00 CDT, Weight Ondansetron 1-0 Yes 4 mg = 1 Me moria 4 MG Oral 7-06 tab, PO, l Tablet 05:05: TID, X 3 [place] [Zofran] day, # 9 tab, 0 Refill(s), Pharmacy: [facility] #[id number], 162.56, cm, 05/17/21 21:44:00 CDT, Height, 101.045, kg, 05/17/21 21:44:00 CDT, Weight Levaquin 2020-0 No Notes: Do Leonid [place] 7-06 not give l 03:33: w/antacids [place] 00 , dairy pdt & minerals Take 1 hr before or 2 hr after dairy pdt (Same as:Levaqui n) Levaquin 2020-0 No Notes: Do Leonid indigo 7-06 not give l 03:33: w/antacids [place] 00 , dairy pdt & minerals Take 1 hr before or 2 hr after dairy pdt (Same as:Levaqui n) Levaquin 2020-0 No Notes: Do Leonid indigo 7-06 not give l 03:33: w/antacids [place] 00 , dairy pdt & minerals Take 1 hr before or 2 hr after dairy pdt (Same as:Levaqui n) Levaquin 2020-0 No Notes: Do Leonid indigo 7-06 not give l 03:33: w/antacids [place] 00 , dairy pdt & minerals Take 1 hr before or 2 hr after dairy pdt (Same as:Levaqui n) Famotidine 2020-0 No 20 mg, 2 Mem oria 7-06 mL, Route: l 03:18: IV, Drug [place] 00 form: INJ, ONCE, Dosing Weight 101.045, kg, Start date: 05/17/21 22:18:00 CDT, Stop date: 05/17/21 22:18:00 CDT, 0 Famotidine 2021-0 No 20 mg, 2 Mem oria 7-06 mL, Route: l 03:18: IV, Drug [place] 00 form: INJ, ONCE, Dosing Weight 101.045, kg, Start date: 05/17/21 22:18:00 CDT, Stop date: 05/17/21 22:18:00 CDT, 0 Famotidine 2021-0 No 20 mg, 2 Mem oria 7-06 mL, Route: l 03:18: IV, Drug [place] 00 form: INJ, ONCE, Dosing Weight 101.045, kg, Start date: 05/17/21 22:18:00 CDT, Stop date: 05/17/21 22:18:00 CDT, 0 Famotidine 2021-0 No 20 mg, 2 Mem oria 7-06 mL, Route: l 03:18: IV, Drug [place] 00 form: INJ, ONCE, Dosing Weight 101.045, kg, Start date: 05/17/21 22:18:00 CDT, Stop date: 05/17/21 22:18:00 CDT, 0 Sodium 2020-0 No 1,000 mL, Memori a Chloride 7- 1000 l 0.9% 03:16: ml/hr, [place] (Bolus) IV 00 Infuse Over: 1 hr, Route: IV, 1,000, Drug form: INJ, ONCE, Priority: STAT, Dosing Weight 101.045 kg, Start date: 05/17/21 22:16:00 CDT, Stop date: 05/17/21 22:16:00 CDT, 0 Ondansetron 0 No Notes: Leonid indigo 05-18 (Same as: [...] Chloride 7- 1000 l 0.9% 03:16: ml/hr, [place] (Bolus) IV 00 Infuse Over: 1 hr, Route: IV, 1,000, Drug form: INJ, ONCE, Priority: STAT, Dosing Weight 101.045 kg, Start date: 05/17/21 22:16:00 CDT, Stop date: 05/17/21 22:16:00 CDT, 0 Ondansetron 0 No Notes: Leonid indigo 05-18 (Same as: l 03:16: Zofran) Willie 00 MEDICATION WASTE Product Size: 4 mg Product Wasted: ___ mg GI cocktail No 45 mL, Leonid indigo (aluminum 706 Route: PO, l hydroxide/m 03:16: Dosing Herm sina agnesium 00 Weight hydroxide/l 101.045, idocaine/si kg, ONCE, methicone) STAT, Start date: 05/17/21 22:16:00 CDT, Stop date: 05/17/21 22:16:00 CDT Sodium 2020-0 No 1,000 mL, Memori a Chloride 7-06 1000 l 0.9% 03:16: ml/hr, [place] (Bolus) IV 00 Infuse Over: 1 hr, Route: IV, 1,000, Drug form: INJ, ONCE, Priority: STAT, Dosing Weight 101.045 kg, Start date: 05/17/21 22:16:00 CDT, Stop date: 05/17/21 22:16:00 CDT, 0 Ondansetron 0 No Notes: Leonid indigo 05-18 (Same as: [...] 0 Ondansetron 0 No Notes: Leonid indigo 05-18 (Same as: l 03:16: Zofran) Willie 00 MEDICATION WASTE Product Size: 4 mg Product Wasted: ___ mg GI cocktail No 45 mL, Leonid indigo (aluminum 7-06 Route: PO, l hydroxide/m 03:16: Dosing Herm sina agnesium 00 Weight hydroxide/l 101.045, idocaine/si kg, ONCE, methicone) STAT, Start date: 05/17/21 22:16:00 CDT, Stop date: 05/17/21 22:16:00 CDT Ondansetron 1-0 Yes 4 mg = 1 Me moria 4 MG Oral - tab, PO, l Tablet 14:02: Q8H, PRN [place] [Zofran] 00 Nausea/vom iting, X 10 day, # 30 tab, 0 Refill(s) Ondansetron 1-0 Yes 4 mg = 1 Me moria 4 MG Oral 7-01 tab, PO, l Tablet 14:02: Q8H, PRN [place] [Zofran] 00 Nausea/vom iting, X 10 day, # 30 tab, 0 Refill(s) Ondansetron 1-0 Yes 4 mg = 1 Me moria 4 MG Oral 7-01 tab, PO, l Tablet 14:02: Q8H, PRN [place] [Zofran] 00 Nausea/vom iting, X 10 day, # 30 tab, 0 Refill(s) Ondansetron 1-0 Yes 4 mg = 1 Me moria 4 MG Oral - tab, PO, l Tablet 14:02: Q8H, PRN [place] [Zofran] 00 Nausea/vom iting, X 10 day, # 30 tab, 0 Refill(s) Tylenol 2020-0 No 650 mg, Memoria 05-13 Route: PO, l 13:30: Drug form: [place] 00 TAB, ONCE, Dosing Weight 100, kg, Priority: STAT, Start date: 05/13/21 8:30:00 CDT, Stop date: 05/13/21 8:30:00 CDT Motrin 2020-0 No 600 mg, Memoria 05-13 Route: PO, l 13:30: Drug form: Willie 00 TAB, ONCE, Dosing Weight 100, kg, Priority: STAT, Start date: 05/13/21 8:30:00 CDT, Stop date: 05/13/21 8:30:00 CDT Zofran ODT 2020-0 No 4 mg, Memori a 05-13 Route: PO, l 13:30: Drug form: [place] 00 TABDIS, ONCE, Dosing Weight 100, kg, Priority: STAT, Start date: 05/13/21 8:30:00 CDT, Stop date: 05/13/21 8:30:00 CDT Dexamethaso 2021-0 No 10 mg, Leonid indigo ne - Route: IM, l 13:30: ONCE, Dosing Weight 100, kg, Priority: STAT, Start date: 05/13/21 8:30:00 CDT, Stop date: 05/13/21 8:30:00 CDT Tylenol 2021-0 No 650 mg, Memoria 05-13 Route: PO, l 13:30: Drug form: [place] 00 TAB, ONCE, Dosing Weight 100, kg, Priority: STAT, Start date: 05/13/21 8:30:00 CDT, Stop date: 05/13/21 8:30:00 CDT Motrin 2021-0 No 600 mg, Memoria 05-13 Route: PO, l 13:30: Drug form: [place] 00 TAB, ONCE, Dosing Weight 100, kg, Priority: STAT, Start date: 05/13/21 8:30:00 CDT, Stop date: 05/13/21 8:30:00 CDT Zofran ODT 2021-0 No 4 mg, Memori a 05-13 Route: PO, l 13:30: Drug form: [place] TABDIS, ONCE, Dosing Weight 100, kg, Priority: STAT, Start date: 05/13/21 8:30:00 CDT, Stop date: 05/13/21 8:30:00 CDT Dexamethaso 2021-0 No 10 mg, Leonid indigo ne 05-13 Route: IM, l 13:30: ONCE, Dosing Weight 100, kg, Priority: STAT, Start date: 05/13/21 8:30:00 CDT, Stop date: 05/13/21 8:30:00 CDT Tylenol 2021-0 No 650 mg, Memoria 05-13 Route: PO, l 13:30: Drug form: [place] 00 TAB, ONCE, Dosing Weight 100, kg, Priority: STAT, Start date: 05/13/21 8:30:00 CDT, Stop date: 05/13/21 8:30:00 CDT Motrin 2021-0 No 600 mg, Memoria 05-13 Route: PO, l 13:30: Drug form: [place] 00 TAB, ONCE, Dosing Weight 100, kg, [...] PO, l 13:30: Drug form: [place] 00 TAB, ONCE, Dosing Weight 100, kg, Priority: STAT, Start date: 05/13/21 8:30:00 CDT, Stop date: 05/13/21 8:30:00 CDT Motrin 2020-0 No 600 mg, Memoria 05-13 Route: PO, l 13:30: Drug form: [place] 00 TAB, ONCE, Dosing Weight 100, kg, Priority: STAT, Start date: 05/13/21 8:30:00 CDT, Stop date: 05/13/21 8:30:00 CDT Zofran ODT 2021-0 No 4 mg, Memori a 05-13 Route: PO, l 13:30: Drug form: [place] 00 TABDIS, ONCE, Dosing Weight 100, kg, Priority: STAT, Start date: 05/13/21 8:30:00 CDT, Stop date: 05/13/21 8:30:00 CDT Dexamethaso 2021-0 No 10 mg, Leonid indigo ne 05-13 Route: IM, l 13:30: ONCE, Dosing Weight 100, kg, Priority: STAT, Start date: 05/13/21 8:30:00 CDT, Stop date: 05/13/21 8:30:00 CDT Phenazopyri 1-0 No 100 mg = 1 Memoria dine 3-23 tab, PO, l hydrochlori 19:44: TID, PRN He rmann de 100 MG 00 Dysuria, X Oral Tablet 2 day, # 6 [Pyridium] tab, 0 Refill(s) Ondansetron Yes 4 mg = 1 Me moria 4 MG Oral 3-23 tab, PO, l Tablet 19:44: TID, PRN [place] [Zofran] 00 Nausea & Vomiting, # 15 tab, 0 Refill(s) Nitrofurant No 100 mg = 1 Memoria oin [...] tab, PO, l Tablet 19:44: TID, PRN [place] [Zofran] 00 Nausea & Vomiting, # 15 [...] tab, PO, l Tablet 19:44: TID, PRN [place] [Zofran] 00 Nausea & Vomiting, # 15 tab, 0 Refill(s) Nitrofurant 0 No 100 mg = 1 Memoria oin 100 MG 3-23 cap, PO, l Oral 19:44: Q12H, X 5 [place] Capsule 00 day, # 10 [Macrobid] cap, 0 Refill(s) Phenazopyri 0 No 100 mg = 1 Memoria dine 3-23 tab, PO, l hydrochlori 19:44: TID, PRN He rmann de 100 MG 00 Dysuria, X Oral Tablet 2 day, # 6 [Pyridium] tab, 0 Refill(s) Ondansetron Yes 4 mg = 1 Me moria 4 MG Oral 3-23 tab, PO, l Tablet 19:44: TID, PRN [place] [Zofran] 00 Nausea & Vomiting, # 15 tab, 0 Refill(s) Nitrofurant No 100 mg = 1 Memoria oin 100 MG 3-23 cap, PO, l Oral 19:44: Q12H, X 5 [place] Capsule 00 day, # 10 [Macrobid] cap, 0 Refill(s) ketOROLAC No 15 mg, Memori a 15 mg/mL 02-02 Route: l injectable 19:35: IVP, Drug He rmann solution 00 form: INJ, ONCE, Dosing Weight 99.545, kg, Priority: STAT, Start date: 02/02/21 14:35:00 CDT, Stop date: 02/02/21 14:35:00 CDT Ketorolac 2020-0 No 15 mg, Memori a 02-02 Route: l 19:35: IVP, Drug [place] 00 form: INJ, ONCE, Dosing Weight 99.545, kg, Priority: STAT, Start date: 02/02/21 14:35:00 CDT, Stop date: 02/02/21 14:35:00 CDT ketOROLAC 2020-0 No 15 mg, Memori a 15 mg/mL 02-02 Route: l injectable 19:35: IVP, Drug He rmann solution 00 form: INJ, ONCE, Dosing Weight 99.545, kg, Priority: STAT, Start date: 02/02/21 14:35:00 CDT, Stop date: 02/02/21 14:35:00 CDT Ketorolac 2020-0 No 15 mg, Memori a 02-02 Route: [...] a 3-23 Route: l 19:35: IVP, Drug [place] 00 form: INJ, ONCE, Dosing Weight 99.545, [...] CDT, Stop date: 02/02/21 14:35:00 CDT Macrobid 2021-0 No 100 mg, Memori a 3-23 Route: PO, l 18:24: ONCE, [place] 00 Dosing Weight 99.545, kg, Priority: STAT, Start date: 02/02/21 13:24:00 CDT, Stop date: 02/02/21 13:24:00 CDT Macrobid 2021-0 No 100 mg, Memori a 3-23 Route: PO, l 18:24: ONCE, [place] 00 Dosing Weight 99.545, kg, Priority: STAT, Start date: 02/02/21 13:24:00 CDT, Stop date: 02/02/21 13:24:00 CDT Macrobid 1-0 No 100 mg, Memori a 3-23 Route: PO, l 18:24: ONCE, [place] 00 Dosing Weight 99.545, kg, Priority: STAT, Start date: 02/02/21 13:24:00 CDT, Stop date: 02/02/21 13:24:00 CDT Macrobid 1-0 No 100 mg, Memori a 3-23 Route: PO, l 18:24: ONCE, [place] Dosing Weight 99.545, kg, Priority: STAT, Start [...] Memoria 3-23 Route: l 17:28: IVP, Drug [place] 00 form: INJ, ONCE, Dosing Weight 99.545, kg, Priority: STAT, Start date: 02/02/21 12:28:00 CDT, Stop date: 02/02/21 12:28:00 CDT Zofran 1-0 No 4 mg, Memoria 3-23 Route: l 17:28: IVP, Drug [place] 00 form: INJ, ONCE, Dosing Weight 99.545, kg, Priority: STAT, Start date: 02/02/21 12:28:00 CDT, Stop date: 02/02/21 12:28:00 CDT Sodium 2021-0 No 1,000 mL, Memori a Chloride 3-23 Infuse l 0.9% 17:28: Over: 1 [place] (Bolus) IV 00 hr, Route: IV, ONCE, Priority: STAT, Dosing Weight 99.545 kg, Start date: 02/02/21 12:28:00 CDT, Stop date: 02/02/21 12:28:00 CDT Morphine 2021-0 No 4 mg, Memoria 3-23 Route: l 17:28: IVP, Drug [place] 00 form: INJ, ONCE, Dosing Weight 99.545, kg, Priority: STAT, Start date: 02/02/21 12:28:00 CDT, Stop date: 02/02/21 12:28:00 CDT Zofran 2021-0 No 4 mg, Memoria 3-23 Route: l 17:28: IVP, Drug [place] 00 form: INJ, ONCE, Dosing Weight 99.545, kg, Priority: STAT, Start date: 02/02/21 12:28:00 CDT, Stop date: 02/02/21 12:28:00 CDT Sodium 2021-0 No 1,000 mL, Memori a Chloride 3-23 Infuse l 0.9% 17:28: Over: 1 [place] (Bolus) IV 00 hr, Route: IV, ONCE, Priority: STAT, Dosing Weight 99.545 kg, Start date: 02/02/21 12:28:00 CDT, Stop date: 02/02/21 12:28:00 CDT Morphine 2021-0 No 4 mg, Memoria 3-23 Route: l 17:28: IVP, Drug [place] 00 form: INJ, ONCE, Dosing Weight 99.545, kg, Priority: STAT, Start date: 02/02/21 12:28:00 CDT, Stop date: 02/02/21 12:28:00 CDT Zofran 2021-0 No 4 mg, Memoria 3-23 Route: l 17:28: IVP, Drug [place] 00 form: INJ, ONCE, Dosing Weight 99.545, kg, Priority: STAT, Start date: 02/02/21 12:28:00 CDT, Stop date: 02/02/21 12:28:00 CDT Sodium 2021-0 No 1,000 mL, Memori a Chloride 3-23 Infuse l 0.9% 17:28: Over: 1 [place] (Bolus) IV 00 hr, Route: IV, ONCE, Priority: STAT, Dosing Weight 99.545 kg, Start date: 02/02/21 12:28:00 CDT, Stop date: 02/02/21 12:28:00 CDT Morphine 1-0 No 4 mg, Memoria 3- Route: l 17:28: IVP, Drug [place] 00 form: INJ, ONCE, Dosing Weight 99.545, kg, Priority: STAT, Start date: 02/02/21 12:28:00 CDT, Stop date: 02/02/21 12:28:00 CDT Zofran 1-0 No 4 mg, Memoria 3 Route: l 17:28: IVP, Drug [place] 00 form: INJ, ONCE, Dosing Weight 99.545, [...] 00 30 cap, 0 capsule Refill(s) Ondansetron 2017-1 Yes 4 mg = 1 Me moria [...] n [Zofran] 00 tab, 0 Refill(s) omeprazole 2018-1 Yes 10 mg = 1 Me moria 10 mg oral 1-13 cap, PO, l delayed 01:15: Daily, # Bartolome n release 00 30 cap, 0 capsule Refill(s) Ondansetron 2018-1 Yes 4 mg = 1 Me moria 4 MG Oral 1-13 tab, PO, l Tablet 01:15: BID, # 10 Bart[place]ome n [Zofran] 00 tab, 0 Refill(s) omeprazole 2017-11 Yes 10 mg = 1 Me moria 10 mg oral 1-13 cap, PO, l delayed 01:15: Daily, # Bartol[place] n release 00 30 cap, 0 capsule Refill(s) Ondansetron 2017-11 No Notes: Leonid indigo 1-12 (Same as: l 23:39: Zofran) [place] 00 MEDICATION WASTE Product Size: 4 mg Product Wasted: _0__ mg Famotidine 2017-11 No Notes: Memor ia 1-12 (Same as: l 23:39: Pepcid) [place] 00 Can be dilute in 5-10cc NS IVP: Slow IV push over at least 2 minutes. Morphine 2017-11 No Notes: Memoria 1-12 (Same l 23:39: as:MORPhin [place] 00 e Sulfate) Ondansetron 2017-11 No Notes: Leonid indigo 1-12 (Same as: l 23:39: Zofran) [place] 00 MEDICATION WASTE Product Size: 4 mg Product Wasted: _0__ mg Famotidine 2017-11 No Notes: Memor ia 1-12 (Same as: l 23:39: Pepcid) [place] 00 Can be dilute in 5-10cc NS IVP: Slow IV push over at least 2 minutes. Morphine 2017-11 No Notes: Memoria 1-12 (Same l 23:39: as:MORPhin [place] 00 e Sulfate) Ondansetron 2017-11 No Notes: Leonid indigo 1-12 (Same as: l 23:39: Zofran) [place] 00 MEDICATION WASTE Product Size: 4 mg Product Wasted: _0__ mg Famotidine 2017-11 No Notes: Memor ia 1-12 (Same as: l 23:39: Pepcid) [place] 00 Can be dilute in 5-10cc NS IVP: Slow IV push over at least 2 minutes. Morphine 2017-11 No Notes: Memoria 1-12 (Same l 23:39: as:MORPhin [place] 00 e Sulfate) Ondansetron 2017-11 No Notes: Leonid indigo 1-12 (Same as: l 23:39: Zofran) [place] 00 MEDICATION WASTE Product Size: 4 mg Product Wasted: _0__ mg Famotidine 2017-11 No Notes: Memor ia 11-24 (Same as: l 23:39: Pepcid) [place] 00 Can be dilute in 5-10cc NS IVP: Slow IV push over at least 2 minutes. Morphine 2017-11 No Notes: Memoria 11-24 (Same l 23:39: as:MORPhin [place] 00 e Sulfate) Dicyclomine Dicyclomine Yes BLAIR [...] UT e Glycol e Glycol 2-12 HAYDEN CAPALFA Phy sici 3350 Oral 3350 Oral 00:00: [...] PO, l Oral 19:02: BID, X 7 [place] Capsule 00 day, # 14 [Macrobid] cap, 0 Refill(s) Nitrofurant 2016-11 Yes 100 mg = 1 Memoria oin 100 MG 1-30 cap, PO, l Oral 19:02: BID, X 7 [place] Capsule 00 day, # 14 [Macrobid] cap, 0 Refill(s) Nitrofurant 2016-11 Yes 100 mg = 1 Memoria oin 100 MG 1-30 cap, PO, l Oral 19:02: BID, X 7 [place] Capsule day, # 14 [Macrobid] cap, 0 [...] tab, PO, l Enteric 18:48: Daily, # [place] n Coated 00 30 tab, 0 Tablet Refill(s) [Protonix] ketOROLAC 2016-11 No 30 mg, Memori a 30 mg/mL 12-12 Route: l injectable 18:40: IVP, Drug He rmann solution 00 form: INJ, ONCE, Dosing Weight 86.364, kg, Priority: STAT, Start date: 10/12/17 12:40:00 [facility], Stop date: 10/12/17 12:40:00 [facility] GI cocktail 2016-11 No 30 mL, Leonid indigo 12-12 Route: PO, l 18:40: Dosing [place] 00 Weight 86.364, kg, ONCE, STAT, Start date: 10/12/17 12:40:00 [facility], Stop date: 10/12/17 12:40:00 [facility] ketOROLAC 2016-11 No 30 mg, Memori a 30 mg/mL -30 Route: l injectable 18:40: IVP, Drug He rmann solution 00 form: INJ, ONCE, Dosing Weight 86.364, kg, Priority: STAT, Start date: 10/12/17 12:40:00 [facility], Stop date: 10/12/17 12:40:00 [facility] GI cocktail 2016- No 30 mL, Leonid indigo 1-30 Route: PO, l 18:40: Dosing [place] 00 Weight 86.364, kg, ONCE, STAT, Start date: 10/12/17 12:40:00 [facility], Stop date: 10/12/17 12:40:00 [facility] ketOROLAC 2016- No 30 mg, Memori a 30 mg/mL -30 Route: l injectable 18:40: IVP, Drug He rmann solution 00 form: INJ, ONCE, Dosing Weight 86.364, kg, Priority: STAT, Start date: 10/12/17 12:40:00 [facility], Stop date: 10/12/17 12:40:00 [facility] GI cocktail 2016- No 30 mL, Leonid indigo 1-30 Route: PO, l 18:40: Dosing [place] 00 Weight 86.364, kg, ONCE, STAT, Start date: 10/12/17 12:40:00 [facility], Stop date: 10/12/17 12:40:00 [facility] ketOROLAC 2016- No 30 mg, Memori a 30 mg/mL -30 Route: l injectable 18:40: IVP, Drug He rmann solution 00 form: INJ, ONCE, Dosing Weight 86.364, kg, Priority: STAT, Start date: 10/12/17 12:40:00 [facility], Stop date: 10/12/17 12:40:00 [facility] GI cocktail 2016- No 30 mL, Leonid indigo 1-30 Route: PO, l 18:40: Dosing [place] 00 Weight 86.364, kg, ONCE, STAT, Start date: 10/12/17 12:40:00 [facility], Stop date: 10/12/17 12:40:00 [facility] Zofran 2016- No 4 mg, Memoria 1-30 Route: l 17:30: IVP, Drug [place] 00 form: INJ, ONCE, Dosing Weight 86.364, kg, Priority: STAT, Start date: 10/12/17 11:30:00 [facility], Stop date: 10/12/17 11:30:00 [facility] Zofran 2017- No 4 mg, Memoria 30 Route: l 17:30: IVP, Drug [place] 00 form: INJ, ONCE, Dosing Weight 86.364, kg, Priority: STAT, Start date: 10/12/17 11:30:00 [facility], Stop date: 10/12/17 11:30:00 [facility] Zofran 2017- No 4 mg, Memoria 30 Route: l 17:30: IVP, Drug [place] 00 form: INJ, ONCE, Dosing Weight 86.364, kg, Priority: STAT, Start date: 10/12/17 11:30:00 [facility], Stop date: 10/12/17 11:30:00 [facility] Zofran 2016- No 4 mg, Memoria 12-12 Route: l 17:30: IVP, Drug [place] form: INJ, ONCE, Dosing Weight 86.364, kg, Priority: STAT, Start date: 10/12/17 11:30:00 [facility], Stop date: 10/12/17 11:30:00 [facility] Ondansetron 2016- No 4 mg, Memor ia 30 Route: l 15:18: IVP, ONCE, Willie Dosing Weight 86.364, kg, Priority: STAT, Start date: 10/12/17 9:18:00 [facility], Stop date: 10/12/17 9:18:00 [facility] Famotidine 2016- No 20 mg, Memor ia 30 Route: l 15:18: IVP, ONCE, [place] 00 Dosing Weight 86.364, kg, Priority: STAT, Start date: 10/12/17 9:18:00 [facility], Stop date: 10/12/17 9:18:00 [facility] Sodium 2017- No 1,000 mL, Memori a Chloride -30 Infuse l 0.9% 15:18: Over: 1 [place] (Bolus) IV 00 hr, Route: IV, ONCE, Priority: STAT, Dosing Weight 86.364 kg, Start date: 10/12/17 9:18:00 [facility], Stop date: 10/12/17 9:18:00 [facility] Saline 2016- No Notes: Memoria Flush 0.9% 1-30 (Same as: l 15:18: BD [place] 00 Posiflush) Acetaminoph 2016-11 No 1 tab, Leonid indigo en 325 MG / 30 Route: PO, l Hydrocodone 15:18: Drug Form: [place] Bitartrate 00 TAB, 10 MG Oral Dosing Tablet Weight [Tracy 86.364, 10/325] kg, ONCE, STAT, Start date: 10/12/17 9:18:00 [facility], Stop date: 10/12/17 9:18:00 [facility] Ondansetron 2016-11 No 4 mg, Memor ia -30 Route: l 15:18: IVP, ONCE, [place] Dosing Weight 86.364, kg, Priority: STAT, Start date: 10/12/17 9:18:00 [facility], Stop date: 10/12/17 9:18:00 [facility] Famotidine 2016-11 No 20 mg, Memor ia -30 Route: l 15:18: IVP, ONCE, Dosing Weight 86.364, kg, Priority: STAT, Start date: 10/12/17 9:18:00 [facility], Stop date: 10/12/17 9:18:00 [facility] Sodium 2016-11 No 1,000 mL, Memori a Chloride 1-30 Infuse l 0.9% 15:18: Over: 1 [place] (Bolus) IV 00 hr, Route: IV, ONCE, Priority: STAT, Dosing Weight 86.364 kg, Start date: 10/12/17 9:18:00 [facility], Stop date: 10/12/17 9:18:00 [facility] Saline 2016-11 No Notes: Memoria Flush 0.9% 1-30 (Same as: l 15:18: BD Willie 00 Posiflush) Acetaminoph 2016-11 No 1 tab, Leonid indigo en 325 MG / 30 Route: PO, l Hydrocodone 15:18: Drug Form: [place] Bitartrate 00 TAB, 10 MG Oral Dosing Tablet Weight [Tracy 86.364, 10/325] kg, ONCE, STAT, Start date: 10/12/17 9:18:00 [facility], Stop date: 10/12/17 9:18:00 [facility] Ondansetron 2016-11 No 4 mg, Memor ia 1-30 Route: l 15:18: IVP, ONCE, Dosing Weight 86.364, kg, Priority: STAT, Start date: 10/12/17 9:18:00 [facility], Stop date: 10/12/17 9:18:00 [facility] Famotidine 2016-11 No 20 mg, Memor ia 30 Route: l 15:18: IVP, ONCE, Dosing Weight 86.364, kg, Priority: STAT, Start date: 10/12/17 9:18:00 [facility], Stop date: 10/12/17 9:18:00 [facility] Sodium 2016-11 No 1,000 mL, Memori a Chloride 1-30 Infuse l 0.9% 15:18: Over: 1 [place] (Bolus) IV 00 hr, Route: IV, ONCE, Priority: STAT, Dosing Weight 86.364 kg, Start date: 10/12/17 9:18:00 [facility], Stop date: 10/12/17 9:18:00 [facility] Saline 2016-11 No Notes: Memoria Flush 0.9% -30 (Same as: l 15:18: BD [place] 00 Posiflush) Acetaminoph 2016-11 No 1 tab, Leonid indigo en 325 MG / 12-12 Route: PO, l Hydrocodone 15:18: Drug Form: [place] Bitartrate TAB, 10 MG Oral Dosing Tablet Weight [Tracy 86.364, 10/325] kg, ONCE, STAT, Start date: 10/12/17 9:18:00 [facility], Stop date: 10/12/17 9:18:00 [facility] Ondansetron 2016-11 No 4 mg, Memor ia 30 Route: l 15:18: IVP, ONCE, Dosing Weight 86.364, kg, Priority: STAT, Start date: 10/12/17 9:18:00 [facility], Stop date: 10/12/17 9:18:00 [facility] Famotidine 2016-11 No 20 mg, Memor ia 30 Route: l 15:18: IVP, ONCE, Dosing Weight 86.364, kg, Priority: STAT, Start date: 10/12/17 9:18:00 [facility], Stop date: 10/12/17 9:18:00 [facility] Sodium 2016-11 No 1,000 mL, Memori a Chloride 1-30 Infuse l 0.9% 15:18: Over: 1 [place] (Bolus) IV 00 hr, Route: IV, ONCE, Priority: STAT, Dosing Weight 86.364 kg, Start date: 10/12/17 9:18:00 [facility], Stop date: 10/12/17 9:18:00 [facility] Saline 2016-11 No Notes: [facility] Flush 0.9% 30 (Same as: l 15:18: BD [place] Posiflush) Acetaminoph 2016-11 No 1 tab, Leonid indigo en 325 MG / 12-12 Route: PO, l Hydrocodone 15:18: Drug Form: [place] Bitartrate 00 TAB, 10 MG Oral Dosing Tablet Weight [Tracy 86.364, 10/325] kg, ONCE, STAT, Start date: 10/12/17 9:18:00 [facility], Stop date: 10/12/17 9:18:00 [facility] Ondansetron Yes Special Mem oria 4 MG [...] 02/18/15 21:01:00, Stop date: 02/18/15 21:01:00 Tylenol 0 No Notes: Do [facility] 4-09 not exceed l 02:01: 4 gm/day. [place] (Same as: Tylenol) Zofran ODT 0 No 4 mg, Memori a 4-09 Route: PO, l 02:01: Drug form: [place] 00 TABDIS, ONCE, Dosing Weight 67.273, kg, Priority: STAT, Start date: 02/18/15 21:01:00, Stop date: 02/18/15 21:01:00 Tylenol 2015-0 No Notes: Do [facility] 4-09 not exceed l 02:01: 4 gm/day. [place] 00 (Same as: Tylenol) Zofran ODT 2014-0 No 4 mg, Memori a 4-09 Route: PO, l 02:01: Drug form: [place] 00 TABDIS, ONCE, Dosing Weight 67.273, kg, Priority: STAT, Start date: 02/18/15 21:01:00, Stop date: 02/18/15 21:01:00 Tylenol 2015-0 No Notes: Do [facility] - not exceed l 02:01: 4 gm/day. [place] 00 (Same as: Tylenol) Zofran ODT 2014-0 No 4 mg, [facility] a 4-09 Route: PO, l 02:01: Drug form: [place] 00 TABDIS, ONCE, Dosing Weight 67.273, kg, Priority: STAT, Start date: 02/18/15 21:01:00, Stop date: 02/18/15 21:01:00 Tylenol 2015-0 No Notes: Do [facility] - not exceed l 02:01: 4 gm/day. [place] 00 (Same as: Tylenol) Zofran ODT 2014-0 No 4 mg, [facility] a 4-09 Route: [...] 4-09 Route: PO, l 01:19: Drug form: [place] 00 TABDIS, ONCE, Dosing Weight 67.273, kg, Priority: STAT, Start date: 02/18/15 20:19:00, Stop date: 02/18/15 20:19:00 [place]nie ODT 2015-0 No 4 mg, [facility] a 02-19 Route: PO, l 01:19: Drug form: [place] 00 TABDIS, ONCE, Dosing Weight 67.273, kg, Priority: STAT, Start date: 02/18/15 20:19:00, Stop date: 02/18/15 20:19:00 Motrin 2014-0 No 600 mg, [facility] 1 Route: PO, l 02:39: Drug form: [place] 00 TAB, ONCE, Dosing Weight 47.727, kg, Priority: STAT, Start date: 12/08/14 20:39:00, Stop date: 12/08/14 20:39:00 Motrin 2014-0 No 600 mg, [facility] 12-09 Route: PO, l 02:39: Drug form: [place] 00 TAB, ONCE, Dosing Weight 47.727, kg, Priority: STAT, Start date: 12/08/14 20:39:00, Stop date: 12/08/14 20:39:00 Motrin 2014-0 No 600 mg, [facility] 12-09 Route: PO, l 02:39: Drug form: [place] 00 TAB, ONCE, Dosing Weight 47.727, kg, Priority: STAT, Start date: 12/08/14 20:39:00, Stop date: 12/08/14 20:39:00 Motrin 2014-0 No 600 mg, [facility] 12-09 Route: PO, l 02:39: Drug form: [place] 00 TAB, ONCE, Dosing Weight 47.727, kg, Priority: STAT, Start date: 12/08/14 20:39:00, Stop date: 12/08/14 20:39:00 Immunizations Ordered Filled Immunization Date Status Comments [facility] e Immunization Name Name diphtheria/pertussi 2022-05-30 Completed [facility], acel/tetanus 18:16:00 [place] adult diphtheria/pertussi 2022-05-30 Completed [facility], acel/tetanus 18:16:00 [place] adult diphtheria/pertussi 2022-05-30 Completed [facility], acel/tetanus 18:16:00 [place] adult diphtheria/pertussi Unknown Completed [facility], acel/tetanus [place] adult Vital Signs Vital Name Observation Time Observation Value Comments Source Systolic blood 2022-09-17 119 mm[Hg] [place] of pressure 07:00:26 [facility] Diastolic blood 2022-09-17 62 mm[Hg] [place] o f pressure 07:00:26 [facility] Heart rate 2022-09-17 73 /min [facility] 07:00:26 [facility] Respiratory rate 2022-09-17 16 /min [facility] 07:00: [facility] Oxygen saturation 2022-09-17 99 /min [facility] Arterial blood 07:00: [facility] by Pulse oximetry [place] Body temperature 2022-09-17 36.89 [place] [facility] 05:07:00 [facility] Body height 2022-09-17 162.6 cm [facility] 05:07:00 [facility] Body weight 2022-09-17 108.863 kg [facility] 05:07:00 [facility] [facility] BMI 2022-09-17 41.20 kg/m2 [facility] 05:07:00 [facility] Systolic (mm Hg) 2022-05-30 [facility] rmann 13:00:00 Diastolic (mm Hg) 2022-05-30 [facility] ermann 13:00:00 Temperature Oral 2022-05-30 98.0 F [facility] (F) 13:00:00 Heart Rate 2022-05-30 [facility] 13:00:00 Respitory Rate 2022-05-30 [facility] sina 13:00:00 Temperature Oral 2022-05-30 98.6 F [facility] (F) 05:40:00 Heart Rate 2022-05-30 [facility] 05:40:00 Respitory Rate 2022-05-30 [facility] sina 05:40:00 Systolic (mm Hg) 2022-05-30 [facility]mann 05:40:00 Diastolic (mm Hg) 2022-05-30 [facility] ermann 05:40:00 Systolic (mm Hg) 2022-05-29 [facility] 21:17:00 Diastolic (mm Hg) 2022-05-29 [facility] 21:17:00 Heart Rate 2022-05-29 [facility] 21:17:00 Respitory Rate 2022-05-29 [facility] 21:17:00 Temperature Oral 2022-05-29 98 F [facility] (F) 21:17:00 Systolic (mm Hg) 2022-05-29 [facility] 17:30:00 Diastolic (mm Hg) 2022-05-29 [facility] 17:30:00 Heart Rate 2022-05-29 [facility] 17:30:00 Respitory Rate 2022-05-29 [facility] 17:30:00 Temperature Oral 2022-05-29 98.2 F [facility] (F) 14:00:00 Height 2022-05-27 162.56 [...] Bartolome n 18:58:00 Systolic (mm Hg) 2022-05-25 [facility] rmann 19:15:00 Diastolic (mm Hg) 2022-05-25 [facility] ermann 19:15:00 Systolic (mm Hg) 2022-05-25 [facility] 18:45:00 Diastolic (mm Hg) 2022-05-25 [facility] ermann 18:45:00 Height 2022-05-25 162.56 cm [facility] 17:51:00 BMI Calculated 2022-05-25 [facility] 17:51:00 Weight 2022-05-25 [facility] 17:51:00 Systolic (mm Hg) 2022-05-25 [facility] 17:51:00 Diastolic (mm Hg) 2022-05-25 [facility] 17:51:00 Heart Rate 2022-05-25 [facility] 17:51:00 Respitory Rate 2022-05-25 [facility] 17:51:00 Temperature Oral 2022-05-25 98.8 F [facility] (F) 17:51:00 Systolic (mm Hg) 2022-05-20 [facility] 00:35:00 Diastolic (mm Hg) 2022-05-20 [facility] ermann 00:35:00 Systolic (mm Hg) 2022-05-20 [facility] 00:30:00 Diastolic (mm Hg) 2022-05-20 [facility] ermann 00:30:00 Systolic (mm Hg) 2022-05-20 [facility] 00:25:00 Diastolic (mm Hg) 2022-05-20 [facility] ermann 00:25:00 Height 2022-05-19 162.56 cm [facility] 22:59:00 BMI Calculated 2022-05-19 [facility] 22:59:00 Weight 2022-05-19 [facility] 22:59:00 Heart Rate 2022-05-19 [facility] 22:59:00 Respitory Rate 2022-05-19 [facility] 22:59:00 Temperature Oral 2022-05-19 98.9 F [facility] (F) 22:59:00 Systolic (mm Hg) 2022-05-06 [facility] 21:30:00 Diastolic (mm Hg) 2022-05-06 [facility] ermann 21:30:00 Systolic (mm Hg) 2022-05-06 [facility] 21:15:00 Diastolic (mm Hg) 2022-05-06 [facility] ermann 21:15:00 Systolic (mm Hg) 2022-05-06 [facility] 21:00:00 Diastolic (mm Hg) 2022-05-06 [facility] ermann 21:00:00 Temperature Oral 2022-05-06 98.9 F [facility] (F) 21:00:00 Respitory Rate 2022-05-06 [facility] 21:00:00 Height 2022-05-06 162.56 cm [facility] 20:36:00 BMI Calculated 2022-05-06 [facility] 20:36:00 Weight 2022-05-06 [facility] n 20:36:00 Systolic (mm Hg) 2022-05-06 [facility] 08:00:00 Diastolic (mm Hg) 2022-05-06 [facility] 08:00:00 Systolic (mm Hg) 2022-05-06 [facility] 07:30:00 Diastolic (mm Hg) 2022-05-06 [facility] 07:30:00 Height 2022-05-06 162.56 cm [facility] 06:53:00 BMI Calculated 2022-05-06 [facility] 06:53:00 Weight 2022-05-06 [facility] 06:53:00 Heart Rate 2022-05-06 [facility] 06:53:00 Respitory Rate 2022-05-06 [facility] 06:53:00 Temperature Oral 2022-05-06 97.2 F [facility] (F) 06:53:00 Systolic (mm Hg) 2022-04-30 [facility] 01:15:00 Diastolic (mm Hg) 2022-04-30 [facility] ermann 01:15:00 Heart Rate 2022-04-30 [facility] 01:15:00 Height 2022-04-30 162.56 cm [facility] 00:42:00 BMI Calculated 2022-04-30 [facility] 00:42:00 Weight 2022-04-30 [facility] 00:42:00 Systolic (mm Hg) 2022-04-30 [facility] 00:42:00 Diastolic (mm Hg) 2022-04-30 [facility] ermann 00:42:00 Heart Rate 2022-04-30 [facility] 00:42:00 Respitory Rate 2022-04-30 [facility] 00:42:00 Temperature Oral 2022-04-30 97.6 F [facility] (F) 00:42:00 Height 2021-10-28 162.56 cm [facility] 18:01:00 BMI Calculated 2021-10-28 [facility] 18:01:00 Weight 2021-10-28 [facility] 18:01:00 Systolic (mm Hg) 2021-10-28 [facility] 18:01:00 Diastolic (mm Hg) 2021-10-28 [facility] 18:01:00 Heart Rate 2021-10-28 [facility] 18:01:00 Respitory Rate 2021-10-28 [facility] 18:01:00 Temperature Oral 2021-10-28 98.8 F [facility] (F) 18:01:00 Systolic (mm Hg) 2021-05-18 [facility] 05:30:00 Diastolic (mm Hg) 2021-05-18 [facility] 05:30:00 Heart Rate 2021-05-18 [facility] 05:30:00 Respitory Rate 2021-05-18 [facility] 05:30:00 Temperature Oral 2021-05-18 98.7 F [facility] (F) 05:30:00 Height 2021-05-18 162.56 cm [facility] 02:44:00 BMI Calculated 2021-05-18 [facility] 02:44:00 Weight 2021-05-18 [facility] 02:44:00 Systolic (mm Hg) 2021-05-18 [facility] 02:44:00 Diastolic (mm Hg) 2021-05-18 [facility] 02:44:00 Heart Rate 2021-05-18 [facility] 02:44:00 Respitory Rate 2021-05-18 [facility] 02:44:00 Temperature Oral 2021-05-18 98.6 F [facility] (F) 02:44:00 Temperature Oral 2021-05-13 99.7 F [facility] (F) 14:27:00 Heart Rate 2021-05-13 [facility] 14:27:00 Respitory Rate 2021-05-13 [facility] 14:27:00 Systolic (mm Hg) 2021-05-13 [facility] 14:27:00 Diastolic (mm Hg) 2021-05-13 [facility] 14:27:00 Height 2021-05-13 162.56 cm [facility] 13:22:00 BMI Calculated 2021-05-13 [facility] 13:22:00 Weight 2021-05-13 [facility] 13:22:00 Systolic (mm Hg) 2021-05-13 [facility] 13:22:00 Diastolic (mm Hg) 2021-05-13 [facility] 13:22:00 Heart Rate 2021-05-13 [facility] 13:22:00 Respitory Rate 2021-05-13 [facility] 13:22:00 Temperature Oral 2021-05-13 100.4 F [facility] (F) 13:22:00 Systolic (mm Hg) [...] sina 17:11:00 Temperature Oral 2021-02-02 98.5 F [facility]y rmann (F) 17:11:00 Temperature Oral 2018-09-25 98.2 F [facility]y rmann (F) 01:25:00 Systolic (mm Hg) [...] [facility] 22:55:00 Heart Rate 2018-09-24 Ashleigh Mancuso n 21:19:00 Temperature Oral 2018-09-24 98 F [facility] Boby hahn (F) 21:19:00 Weight 2018-09-24 Ashleigh Mancuso n 21:19:00 BP Systolic 2018-07-31 114 mm[Hg] [...] BP Systolic 2018-03-15 115 mm[Hg] Location: [facility] 10:21:00 Position: Sitting BP Diastolic 2018-03-15 78 mm[Hg] Location: [facility] 10:21:00 Position: Sitting Height 2018-03-15 164.8 cm [facility] 10:21:00 Weight 2018-03-15 91.2 kg [facility] 10:21:00 Body Mass Index 2018-03-15 33.58 kg/m2 [facility] Calculated 10:21:00 Temperature 2018-03-15 97.8 [degF] Method: [facility] 10:21:00 Tympanic Heart Rate 2018-03-15 71 /min [facility] 10:21:00 BP Systolic 2017-12-19 116 mm[Hg] Location: [facility] 11:15:00 Position: Sitting BP Diastolic 2017-12-19 77 mm[Hg] Location: [facility] 11:15:00 Position: Sitting Height 2017-12-19 64.09 [in_us] [facility] 11:15:00 Weight 2017-12-19 191.80 [lb_av] [facility] 11:15:00 Body Mass Index 2017-12-19 32.83 kg/m2 [facility] Calculated 11:15:00 Heart Rate 2017-12-19 78 /min [facility] 11:15:00 BP Systolic 2017-12-12 109 mm[Hg] Location: [facility] 10:33:00 Position: Sitting BP Diastolic 2017-12-12 78 mm[Hg] Location: [facility] 10:33:00 Position: Sitting Height 2017-12-12 164 [...] n 15:30:00 Respitory Rate 2017-10-12 [facility] 19:37:00 Heart Rate 2017-10-12 [facility] [...] 04:22:00 Temperature Oral 2015-06-18 98.3 F [facility] (F) 04:22:00 BMI Calculated 2015-06-18 [facility] [...] sina 01:11:00 Temperature Oral 2015-02-19 98.7 F [facility] rmann (F) 01:11:00 Heart Rate 2015-02-19 [facility] 01:11:00 Systolic (mm Hg) 2015-02-19 [facility] 01:11:00 Diastolic (mm Hg) 2015-02-19 [facility] 01:11:00 Systolic (mm Hg) 2014-12-09 [facility] 09:04:00 Diastolic (mm Hg) 2014-12-09 [facility] 09:04:00 Heart Rate 2014-12-09 [facility] 09:04:00 Respitory Rate 2014-12-09 [facility] 09:04:00 Temperature Oral 2014-12-09 98.6 F [facility] Boby rmann (F) 09:04:00 Heart Rate 2014-12-09 [facility] 06:05:00 Temperature Oral 2014-12-09 98.4 F [facility] (F) 06:05:00 Respitory Rate 2014-12-09 [facility] 06:05:00 Diastolic (mm Hg) 2014-12-09 [facility] 06:05:00 Systolic (mm Hg) 2014-12-09 [facility] 06:05:00 Respitory Rate 2014-12-09 [facility] 02:57:00 Heart Rate 2014-12-09 [facility] 02:57:00 Diastolic (mm Hg) 2014-12-09 [facility] 02:57:00 Systolic (mm Hg) 2014-12-09 [facility] 02:57:00 Temperature Oral 2014-12-09 98.2 F [facility] (F) 02:57:00 Weight 2014-12-09 [facility] 00:17:00 Height 2014-12-09 162.56 cm [facility] 00:17:00 BMI Calculated 2014-12-09 [facility] 00:17:00 Procedures Procedure Date / Time Performing Clinician Source Performed CT ABDOMEN PELVIS W 2022-09-17 07:14:[address] [facility] POCT TEST 2022-09-17 06:12:00 Vilma London [facility] LIPASE 2022-09-17 05:32:00 Vilma London [facility] COMP. METABOLIC PANEL 2022-09-17 05:32:00 Vilma London [facility] ([id number]) Medical Branch CBC WITH DIFF 2022-09-17 05:32:00 Vilma London [facility] URINALYSIS 2022-09-17 05:25:00 Vilma London [facility] NOTICE OF PRIVACY 2022-09-17 04:55:44 Doctor Unassigned, [facility] PRACTICES [facility] CONSENT/REFUSAL FOR 2022-09-17 04:55:18 Doctor Unassigned, [facility] DIAGNOSIS AND TREATMENT [facility] [[facility]] CLOSTRIDIUM 2018-07-31 00:00:00 [facility] DIFFICILE TOXIN A AND B, EIA [[facility]] CULTURE, STOOL 2018-07-31 00:00:00 [facility] (CAMPYLOBACTER, SALMONELLA/SHIGELLA) [[facility]] CRYPTOSPORIDIUM AG, 2018-07-31 00:00:00 [facility] DFA [[facility]] OVA AND PARASITES, 2018-07-31 00:00:00 [facility] STOOL CONC/PERM SMEAR, 3 SPEC US Abdomen complete with 2018-07-31 00:00:00 [facility] Pelvis [id number] [[facility]] CALPROTECTIN, STOOL 2018-03-15 00:00:00 [facility] [[facility]] OVA AND PARASITES, 2018-03-15 00:00:00 [facility] STOOL CONC/PERM SMEAR, 3 SPEC MRI Brain w/wo contrast 2018-03-15 00:00:00 [facility] [id number] [[facility]] CALPROTECTIN, STOOL 2017-12-12 00:00:00 [facility] [[facility]] OVA AND PARASITES, 2017-12-12 00:00:00 [facility] STOOL CONC/PERM SMEAR, 3 SPEC MRI Brain w/wo contrast 2017-11-14 00:00:00 [facility] [id number] Colonoscopy<sup>1</sup> 2017-11-08 06:00:00 Leonid cao Willie Esophagoscopy 2017-11-08 06:00:00 [facility] ECG-12 Lead 2017-10-24 00:00:00 [facility] [[facility]] OVA AND PARASITES, 2017-10-24 00:00:00 [facility] STOOL CONC/PERM SMEAR, 3 SPEC [[facility]] CALPROTECTIN, STOOL 2017-10-24 00:00:00 [facility] US Renal [id number] 2017-10-24 00:00:00 [facility] Myring[facility] Operation on eustachian [facility] tube Ear operations [facility] History of Ear pressure [facility] equalization tube insertion Encounters Start End Encounter Admission Attending Care Care Encounter Source Date/Time Date/Time Type Type Clinicians Facility Department ID 2022-05-13 Outpatient [facility] [id number] [place] 11:07:49 [id number] [facility] 2022-05-08 Outpatient [facility] [id number] [place] 01:04:29 [id number] [facility] 2022-05-04 Outpatient [facility] [id number] [place] 13:26:05 [id number] [facility] 2022-04-26 Outpatient [facility] [id number] [place] 12:08:22 [id number] [facility] 2022-04-06 Outpatient [facility] [id number] [place] 12:01:44 [id number] [facility] 2022-03-31 Outpatient [facility] [id number] [place] 12:13:14 [id number] [facility] 2022-03-09 Inpatient WANDA, [facility] [id number] [facility] 10:19:37 STEF 2022-03-08 Outpatient [facility] [id number] [place] 23:25:02 [id number] [facility] 2022-01-26 Outpatient [facility] [id number] [place] 15:30:54 [facility] 2022-01-13 Outpatient [facility] [id number] [place] 14:05:26 [facility] 2023-11-03 2023-11-03 Outpatient [facility] [id number] [place] 10:15:00 10:15:00 [facility] 2023-08-14 2023-08-14 Outpatient [facility] [id number] [place] 10:45:00 12:24:19 [facility] 2022-09-17 2022-09-17 Emergency Yariks, [facility] [id number] Univers 00:10:00 02:45:00 Vilma Currie MENLO [id number] [facility] [id number] [facility] [id number] [address] 2022-09-17 2022-09-17 Emergency X SAROJ, [facility] ERT [id number] Univers 00:10:00 02:45:00 VILMA sanchez [facility] 2022-05-27 2022-05-30 [facility]patient [facility] [id number] Memoria 18:53:17 19:56:00 r Willie [address] [place] [address] 2022-05-27 2022-05-30 Inpatient [facility] [id number] Memoria 18:53:17 19:56:00 r Willie 14 [facility] 2022-05-27 2022-05-30 Outpatient Alice [facility] [id number] 13:53:17 14:56:00 Suneet 14 2022-05-28 2022-05-28 Outpatient ALICE [facility] [id number] [place] 07:40:00 07:40:[facility] 2022-05-27 2022-05-27 Outpatient Alice, [facility] [id number] 13:53:17 13:53:17 Suneet 14 2022-05-27 2022-05-27 Inpatient U ALICE, [facility] [id number] [facility] 15:50:00 13:53:00 SUNEET 2022-05-25 2022-05-25 Emergency nullFlavo [facility] [id number] Memoria 17:29:46 19:15:00 hetal Tapia [address] [place] [address] 2022-05-25 2022-05-25 Emergency nullFlavo [facility] [id number] Memoria 17:29:46 19:15:00 r Willie [address] [place] [address] 2022-05-25 2022-05-25 Outpatient Alice, [facility] [id number] 12:29:46 14:15:00 Suneet 13 2022-05-25 2022-05-25 Emergency E ALICE, [facility] [id number] [facility] 12:29:00 14:15:00 SUNEET 2022-05-19 2022-05-20 Emergency [facility] [id number] Memoria 22:55:10 00:52:00 r Willie [address] [place] [address] 2022-05-19 2022-05-20 Emergency [facility] [id number] Memoria 22:55:10 00:52:00 r [place] [address] [place] [address] 2022-05-19 2022-05-19 Outpatient Dion, [facility] [id number] 17:55:10 19:52:00 [facility] 12 2022-05-19 2022-05-19 Emergency E BEHCECELIA, [facility] [id number] [facility] 17:55:00 19:52:00 [facility] 2022-05-06 2022-05-06 Emergency [facility] [id number] Memoria 20:34:25 21:48:00 hetal Tapia [address] [place] [address] 2022-05-06 2022-05-06 Emergency [facility] [id number] Memoria 20:34:25 21:48:00 hetal Willie [address] [place] [address] 2022-05-06 2022-05-06 Outpatient Marilu [facility] [id number] 15:34:25 16:48:00 Indira, Arvin Vicente 2022-05-06 2022-05-06 Emergency E MARILU [facility] [id number] [facility] 15:34:00 16:48:00 VICENTE CHIN 2022-05-06 2022-05-06 [facility] [id number] Memoria 06:43:21 08:30:00 hetal Tapia [address] [place] [address] 2022-05-06 2022-05-06 [facility] [id number] Memoria 06:43:21 08:30:00 hetal Tapia [address] [place] [address] 2022-05-06 2022-05-06 Outpatient Robles, [facility] [id number] 01:43:21 03:30:00 Deandre Arvind 10 2022-05-06 2022-05-06 Emergency E QUAN, [facility] [id number] [facility] 01:43:00 03:30:00 DEANDRE 2022-04-30 2022-04-30 [facility] [id number] Memoria 00:17:00 01:39:[address] 2022-04-30 2022-04-30 Emergency [facility] [id number] Memoria 00:17:00 01:39:[address] 2022-04-29 2022-04-29 Outpatient Alice [facility] [id number] 19:17:00 20:39:00 Suneet 2022-04-29 2022-04-29 Emergency E ALICE, [facility] [id number] [facility] 19:17:00 20:39:00 SUNEET 2021-10-28 2021-10-28 Emergency [facility] [id number] Memoria 17:39:53 22:10:[address] 2021-10-28 2021-10-28 Emergency [facility] [id number] Memoria 17:39:53 22:10:[address] 2021-10-28 2021-10-28 Outpatient [place], [place] [id number] 11:39:53 16:10:00 [place] [id number] [facility] 2021-10-28 2021-10-28 Emergency E FADOWOLE, [facility] BL [id number] [facility] 11:39:00 16:10:00 TELMA 2021-05-18 2021-05-18 Emergency nullFlavo [facility] [id number] Memoria 02:39:45 05:35:00 [facility] 07 l [facility] [place] 2021-05-18 2021-05-18 Emergency nullFlavo [facility] [id number] Memoria 02:39:45 05:35:00 [facility] 07 l ([facility] [place] 2021-05-17 2021-05-18 Outpatient Viscandis SE [facility] [id number] 21:39:45 00:35:00 , [place] 07 2021-05-17 2021-05-18 Emergency E JULIAN SE [facility]SE [id number] 21:39:00 00:35:00 , LOLIS lomeli [facility] 2021-05-13 2021-05-13 Emergency nullFlavo [facility] [id number] Memoria 13:18:22 14:20:00 r [facility]- 06 l [facility] [place] 2021-05-13 2021-05-13 Emergency nullFlavo [facility] [id number] Memoria 13:18:22 14:20:00 [facility]- 06 l [facility] [place] 2021-05-13 2021-05-13 Outpatient [place] SE [facility] [id number] 08:18:22 09:20:00 Q 06 2021-05-13 2021-05-13 Emergency E [place] SE [facility] [id number] 08:18:00 09:20:[facility] 2021-02-02 2021-02-02 Emergency nullFlavo [facility] [id number] Memoria 17:07:58 20:37:00 [facility] 05 l ([facility] [place] 2021-02-02 2021-02-02 Emergency nullFlavo [facility] [id number] Memoria 17:07:58 20:37:00 r [facility] 05 l ([facility] [place] 2021-02-02 2021-02-02 Outpatient Charis Juan SE [facility] [id number] 12:07:58 15:37:00 Ana Cristina 05 2021-02-02 2021-02-02 Outpatient Charis Juan SE [facility] [id number] 12:07:58 15:37:00 Ana Cristina 2021-02-02 2021-02-02 Emergency E CHARISJUAN SE [facility]SE [id number] 12:07:00 15:37:[address] [facility] 2018-09-24 2018-09-25 Emergency [facility] [id number] Memoria 21:16:00 01:35:[address] 2018-09-24 2018-09-25 Emergency [facility] [id number] Memoria 21:16:00 01:35:[address] 2018-09-24 2018-09-24 Outpatient JAIME [facility] [id number] 15:16:00 19:35:00 [place] 2018-08-03 2018-08-04 Outpt Diag nullFlavo [facility] [id number] Memoria 16:12:00 04:59:00 Services r Outpatient 01 l Imaging Willie Shetty 2018-08-03 2018-08-04 Outpt Diag nullFlavo [facility] [id number] Memoria 16:12:00 04:59:00 Services r Outpatient 01 l Imaging Willie [place] 2018-08-03 2018-08-03 Outpatient Van [id number] 11:12:00 23:59:00 Edgar [id number] Wanda [id number] Satcy 2018-07-31 2018-07-31 Appointmen BLAIR BECERRA [facility] Pedi [id number] [place] 01:00:00 01:00:00 t; MD Alirio BECERRA P christal PINTO MD ology [facility] 2018-06-28 2018-06-28 [facility] [id number] [place] 13:20:00 13:20:00 t; AUGUSTIN BLAKE M.D. Physici JOYCE, ans M.D. 2018-05-15 2018-[id number] [place] 09:40:00 09:40:00 t; Vasquez MATIAS MELISSA, ans MELISSA, M.D. M.D. 2018-03-15 2018-03-[facility] [id number] [place] 09:40:00 09:40:00 t; Alirio MATIAS P WANDA Mann ology ans MELISSA, M.D. M.D. 2018-02-28 2018-02-28 Appointmen [facility]AV[facility]NA [facility] [id number] [place] 10:30:00 10:30:00 t; SHERRY GUNN Phys ici NAKITA, M.D. ans M.D. 2017-12-19 2017-12-19 [id number] [place] 10:30:00 10:30:00 t; FELLOW Nephrology Phy sici PEDIATRIC, & ans FELLOW Hypertensio n 2017-12-12 2017-12-12 Appointmen JONATAN TOMAS Pedi [id number] [place] 09:40:00 09:40:00 t; Alirio MATIAS hysiWANDA Flores ology ans MELISSA, M.D. M.D. 2017-11-08 2017-11-09 Day [facility] [id number] Memoria 14:47:00 05:59:00 Surgery r [place] [facility] 2017-11-08 2017-11-09 Day [facility] [id number] Memoria 14:47:00 05:59:00 Surgery r [place] [facility] 2017-11-08 2017-11-08 Outpatient Jonatan [facility] [id number] 08:47:00 23:59:00 Diana Hernándezissa Stacy 2017-10-27 2017-10-28 Outpt Diag nullFlavo [facility] [id number] Memoria 19:03:00 05:59:00 Services r Outpatient 00 l [facility] 2017-10-27 2017-10-28 Outpt Diag nullFlavo [facility] [id number] Memoria 19:03:00 05:59:00 Services r Outpatient 00 l [facility] 2017-10-27 2017-10-27 Outpatient Jonatan MHOIP MHOIP [id number] 13:03:00 23:59:00 Ravi Hernández Wanda Caseee 2017-10-24 2017-10-24 Appointmen JONATAN TOMAS UTP [id number] [place] 10:00:00 10:00:00 t; Vasquez MATIAS MELISSA, ans MELISSA, M.D. M.D. 2017-10-12 2017-10-12 [facility] [id number] Memoria 14:56:00 19:39:00 r [place] 00 [facility] 2017-10-12 2017-10-12 Emergency [facility] [id number] Memoria 14:56:00 19:39:00 [place] 00 [facility] 2017-10-12 2017-10-12 [facility] [id number] 08:56:00 13:39:00 U 00 2015-06-18 2015-06-18 EC nullFlavo [facility] [id number] 575 Memoria 02:41:00 06:26:00 Emergency r Willie 03 [facility] 2015-06-18 2015-06-18 EC nullFlavo [facility] [id number] 575 Memoria 02:41:00 06:26:00 Emergency r [place] 03 [facility] 2015-06-17 2015-06-18 Outpatient SabrinaLatonya MHSE MHSE [id number] 21:41:00 01:26:00 [place] 03 2015-01-29 2015-02-28 OP Therapy nullFlavo SMR [id number] Memoria 13:01:00 04:59:00 Patients r [place] 00 l [facility] 2015-01-29 2015-02-28 OP Therapy nullFlavo SMR [id number] Memoria 13:01:00 04:59:00 Patients r [place] 00 l [facility] 2015-01-29 2015-02-27 Outpatient [place] 2.16.840. 2.16.840. 1. [id number] 08:01:00 23:59:00 Mikel [id number]. [id number] 00 3.615.0.1 5.0.247 23 9537-04-09 2015-02-19 EC nullFlavo [facility] [id number] Memoria 01:09:00 02:53:00 Emergency r [place] 02 [facility] 2015-02-19 2015-02-19 EC nullFlavo [facility] [id number] [place] 01:09:00 02:53:00 Emergency r [place] 02 [facility] 2015-02-18 2015-02-18 Outpatient [place], 2.16.840. 2.16.840.1. [id number] 20:09:00 21:53:00 Freddie [id number]. [id number] 02 Emre 3.615.0.1 5.0.117 38 3165-01-27 2014-12-09 EC nullFlavo [facility] [id number] Memoria 00:15:00 09:27:00 Emergency r [place] 26 [facility] 2014-12-09 2014-12-09 [facility] [id number] [facility] 00:15:00 09:27:00 Emergency r [address] 2014-12-08 2014-12-09 Outpatient Lila 2.16.840. 2.16.840.1. [id number] 18:15:00 03:27:00 Grace Ambar [id number]. [id number] 3.615.0.1 5.0.101 01 Results Test Description Test Time Test Comments Results Result Comments Source POCT TEST 2022-09-17 06:12:00 Test Item Value Reference Range Interpretation Comme nts POCT PREG (test code = 1605) negative On board controls acceptable with C Line (test code = 3574) present POCT PREG LOT # (test code = 3575) [id number] POCT PREG TEST DATE (test code = 3576) Lab Interpretation (test code = 77784-4) Normal [facility] (43924)2022-09-17 05:52:30 Test Item Value Reference Range Interpretation Comments NA (test code = 138 mmol/L 135-145 8315555125) K (test code = 4.1 mmol/L 3.5-5.0 0665045583) CL (test code = 106 mmol/L 98-108 1115232776) CO2 TOTAL (test code = 23 mmol/L 23-31 7920838391) AGAP (test code = 2-16 2375122413) BUN (test code = 11 mg/dL 7-23 9798735201) GLUCOSE (test code = 93 mg/dL 70-110 1905078110) CREATININE (test code = 0.49 mg/dL 0.50-1.04 L 1027770608) TOTAL BILI (test code = 0.7 mg/dL 0.1-1.8 5660796938) CALCIUM (test code = 9.2 mg/dL 8.6-10.6 6494667648) T PROTEIN (test code = 7.1 g/dL 6.3-8.2 3522138819) ALBUMIN (test code = 4.2 g/dL 3.5-5.0 7335135939) ALK PHOS (test code = 75 U/L 34-122 9001769524) ALTv (test code = 18 U/L 5-35 2-6) AST(SGOT) (test code = 28 U/L 13-40 3102197820) eGFR (test code = mL/min/1.73m2 8264452055) SID (test code = SID) Association of [...] tests). Lab Interpretation Abnormal (test code = 39654-9) [facility]2022-[facility]-05 05:51:54 Test Item Value Reference Range Interpretation Comments LIPASE (test code = 2354299080) 78 U/L 0-220 Lab Interpretation (test code = Normal 78722-0) [facility] WITH ECQO1889-05-37 05:39:53 Test Item Value Reference Range Interpretation Comments WBC (test code = See_Comment [Automated 6690-2) message] The sy stem which generated this result transmitted reference range : 4.30 - 11.10 10*3/?L. The reference range was not used to interpret this result as normal/abnormal . RBC (test code = See_Comment [Automated 789-8) message] The sy stem which generated this [...] (test code = 38.5 fL 39.0-49.9 L 45629-3) RDW-CV (test code = 12.2 % 12.0-15.5 788-0) PLT (test code = See_Comment [Automated 777-3) message] The sy stem which generated this result transmitted reference range : 166 - 358 10*3/ ?L. The reference r malcolm was not used to interpret this result as normal/abnormal . MPV (test code = 10.8 fL 9.5-12.9 96331-2) NRBC/100 WBC (test See_Comment [Automat ed code = 2548278774) message] The system which generated this result transmitted reference range : 0.0 - 10.0 /100 WBCs. The refer ence range was not u sed to interpret th is result as normal/abnormal . NRBC x10^3 (test code See_Comment [Auto mated = 5913672410) message] The s ystem which generated this result transmitted reference range : 10*3/?L. The reference range was not used to interpret this result as normal/abnormal . GRAN MAT (NEUT) % 60.2 % (test code = 770-8) IMM GRAN % (test code 0.30 % = 2653389155) LYMPH % (test code = 31.0 % 736-9) MONO % (test code = 6.1 % 5905-5) EOS % (test code = 1.9 % 713-8) BASO % (test code = 0.5 % 706-2) GRAN MAT x10^3(ANC) 6.15 10*3/uL 1.88-7.09 (test code = 2177095135) IMM GRAN x10^3 (test 0.03 10*3/uL 0.00-0.06 code = 0701622697) LYMPH x10^3 (test code 3.16 10*3/uL 1.32-3.29 = 731-0) MONO x10^3 (test code 0.62 10*3/uL 0.33-0.92 = 742-7) EOS x10^3 (test code = 0.19 10*3/uL 0.03-0.39 711-2) BASO x10^3 (test code 0.05 10*3/uL 0.01-0.07 = 704-7) Lab Interpretation Abnormal (test code = 76252-0) [facility] 06:29:00 Test Item Value Reference Range Interpretation Comments Hgb (test code = Hgb) 10.6 12.0-16.0 [facility]NVXVDBLW2852-66-24 06:29:00 Test Item Value Reference Range Interpretation Comments Hct (test code = Hct) 30.8 36.0-48.0 [facility] HospitalWsjgzwvQTHDNUJYFZ6755-63-62 06:29:00 Test Item Value Reference Range Interpretation Comments Hgb (test code = Hgb) 10.6 12.0-16.0 [facility] HospitalBdusctbOUHSJGMUTI5631-41-93 06:29:00 Test Item Value Reference Range Interpretation Comments Hct (test code = Hct) 30.8 36.0-48.0 [facility] HospitalKybjckgFRYKYSIRFV0281-34-85 06:29:00 Test Item Value Reference Range Interpretation Comments Hgb (test code = Hgb) 10.6 12.0-16.0 [facility] HospitalRjrxxbsDHNGOHIEYH8441-25-75 06:29:00 Test Item Value Reference Range Interpretation Comments Hct (test code = Hct) 30.8 36.0-48.0 [place] 715872-07-17 06:29:00 Test Item Value Reference Range Interpretation Comments Hgb (test code = Hgb) 10.6 12.0-16.0 [place] [address]377-07-17 06:29:00 Test Item Value Reference Range Interpretation Comments Hct (test code = Hct) 30.8 36.0-48.0 [place] 928402-07-16 02:21:00 Test Item Value Reference Range Interpretation Comments Glucose Lvl (test code = Glucose Lvl) 62 70-99 [place] 928402-07-16 02:21:00 Test Item Value Reference Range Interpretation Comments BUN (test code = BUN) 7 7-22 [place] 928402-07-16 02:21:00 Test Item Value Reference Range Interpretation Comments Creatinine Lvl (test code = Creatinine 0.50 0.50-1.40 Lvl) [place] 928402-07-16 02:21:00 Test Item Value Reference Range Interpretation Comments Sodium Lvl (test code = Sodium Lvl) 139 135-145 [place] 928402-07-16 02:21:00 Test Item Value Reference Range Interpretation Comments Potassium Lvl (test code = Potassium 3.5 3.5-5.1 Lvl) [place] 928402-07-16 02:21:00 Test Item Value Reference Range Interpretation Comments Chloride Lvl (test code = Chloride Lvl) 109 95-109 [place] 928402-07-16 02:21:00 Test Item Value Reference Range Interpretation Comments CO2 (test code = CO2) 21 24-32 [place] 928402-07-16 02:21:00 Test Item Value Reference Range Interpretation Comments Calcium Lvl (test code = Calcium Lvl) 9.6 8.5-10.5 [place] 928402-07-16 02:21:00 Test Item Value Reference Range Interpretation Comments Total Protein (test code = Total 7.2 6.4-8.4 Protein) [place] 928402-07-16 02:21:00 Test Item Value Reference Range Interpretation Comments Albumin Lvl (test code = Albumin Lvl) 2.9 3.5-5.0 [place] 928402-07-16 02:21:00 Test Item Value Reference Range Interpretation Comments ALT (test code = ALT) 20 <=65 [facility]2022-07-16 02:21:00 Test Item Value Reference Range Interpretation Comments AST (test code = AST) 16 <=37 [place] 928402-07-16 02:21:00 Test Item Value Reference Range Interpretation Comments Alk Phos (test code = Alk Phos) 180 39-136 [facility]2022-07-16 02:21:00 Test Item Value Reference Range Interpretation Comments Bili Total (test code = Bili Total) 0.5 0.2-1.3 [facility]2022-07-16 02:21:00 Test Item Value Reference Range Interpretation Comments AGAP (test code = AGAP) 12.5 10.0-20.0 [place] 928402-07-16 02:21:00 Test Item Value Reference Range Interpretation Comments B/C Ratio (test code = B/C Ratio) 14 1 6-25 [place] 928402-07-16 02:21:00 Test Item Value Reference Range Interpretation Comments Globulin (test code = Globulin) 4.3 2.7-4.2 [facility]2022-07-16 02:21:00 Test Item Value Reference Range Interpretation Comments A/G Ratio (test code = A/G Ratio) 0.7 1 0.7-1.6 [facility]2022-07-16 02:21:00 Test Item Value Reference Range Interpretation Comments eGFR (test code = eGFR) 136 [facility]2022-07-16 02:21:00 Test Item Value Reference Range Interpretation Comments U Creatinine (test code = U Creatinine) 39.60 [place] 298862-07-16 02:21:00 Test Item Value Reference Range Interpretation Comments U Protein (test code = U Protein) 11.1 [place] 298862-07-16 02:21:00 Test Item Value Reference Range Interpretation Comments U Prot/Creat (test code = U 0.28 1 Prot/Creat) [place] 928402-07-16 02:21:00 Test Item Value Reference Range Interpretation Comments Glucose Lvl (test code = Glucose Lvl) 62 70-99 [place] 928402-07-16 02:21:00 Test Item Value Reference Range Interpretation Comments BUN (test code = BUN) 7 7-22 [place] 928402-07-16 02:21:00 Test Item Value Reference Range Interpretation Comments Creatinine Lvl (test code = Creatinine 0.50 0.50-1.40 Lvl) [place] 928402-07-16 02:21:00 Test Item Value Reference Range Interpretation Comments Sodium Lvl (test code = Sodium Lvl) 139 135-145 [place] 928402-07-16 02:21:00 Test Item Value Reference Range Interpretation Comments Potassium Lvl (test code = Potassium 3.5 3.5-5.1 Lvl) [place] 76[address]-07-16 02:21:00 Test Item Value Reference Range Interpretation Comments Chloride Lvl (test code = Chloride Lvl) 109 95-109 [place] 928402-07-16 02:21:00 Test Item Value Reference Range Interpretation Comments CO2 (test code = CO2) 21 24-32 [place] 928402-07-16 02:21:00 Test Item Value Reference Range Interpretation Comments Calcium Lvl (test code = Calcium Lvl) 9.6 8.5-10.5 [place] 928402-07-16 02:21:00 Test Item Value Reference Range Interpretation Comments Total Protein (test code = Total 7.2 6.4-8.4 Protein) [place] 928402-07-16 02:21:00 Test Item Value Reference Range Interpretation Comments Albumin Lvl (test code = Albumin Lvl) 2.9 3.5-5.0 [place] 928402-07-16 02:21:00 Test Item Value Reference Range Interpretation Comments ALT (test code = ALT) 20 See_Comment [Auto mated message] The system which ge nerated this result transmit perico reference range : <=65. The reference range was not used to interpr et this result as sincere l/abnormal. [place] 928402-07-16 02:21:00 Test Item Value Reference Range Interpretation Comments AST (test code = AST) 16 See_Comment [Auto mated message] The system which ge nerated this result transmit perico reference range : <=37. The reference range was not used to interpr et this result as sincere l/abnormal. [place] 76677-07-16 02:21:00 Test Item Value Reference Range Interpretation Comments Alk Phos (test code = Alk Phos) 180 39-136 [facility]2022-07-16 02:21:00 Test Item Value Reference Range Interpretation Comments Bili Total (test code = Bili Total) 0.5 0.2-1.3 [facility]2022-07-16 02:21:00 Test Item Value Reference Range Interpretation Comments AGAP (test code = AGAP) 12.5 10.0-20.0 [facility]2022-07-16 02:21:00 Test Item Value Reference Range Interpretation Comments B/C Ratio (test code = B/C Ratio) 14 1 6-25 [facility]2022-07-16 02:21:00 Test Item Value Reference Range Interpretation Comments Globulin (test code = Globulin) 4.3 2.7-4.2 [facility]2022-07-16 02:21:00 Test Item Value Reference Range Interpretation Comments A/G Ratio (test code = A/G Ratio) 0.7 1 0.7-1.6 [facility]2022-07-16 02:21:00 Test Item Value Reference Range Interpretation Comments eGFR (test code = eGFR) 136 [facility]2022-07-16 02:21:00 Test Item Value Reference Range Interpretation Comments U Creatinine (test code = U Creatinine) 39.60 [place] 298862-07-16 02:21:00 Test Item Value Reference Range Interpretation Comments U Protein (test code = U Protein) 11.1 [place] 298862-07-16 02:21:00 Test Item Value Reference Range Interpretation Comments U Prot/Creat (test code = U 0.28 1 Prot/Creat) [facility]2022-07-16 02:21:00 Test Item Value Reference Range Interpretation Comments Glucose Lvl (test code = Glucose Lvl) 62 70-99 [facility]2022-07-16 02:21:00 Test Item Value Reference Range Interpretation Comments BUN (test code = BUN) 7 7-22 [facility]2022-07-16 02:21:00 Test Item Value Reference Range Interpretation Comments Creatinine Lvl (test code = Creatinine 0.50 0.50-1.40 Lvl) [place] 928402-07-16 02:21:00 Test Item Value Reference Range Interpretation Comments Sodium Lvl (test code = Sodium Lvl) 139 135-145 [place] 928402-07-16 02:21:00 Test Item Value Reference Range Interpretation Comments Potassium Lvl (test code = Potassium 3.5 3.5-5.1 Lvl) [place] 928402-07-16 02:21:00 Test Item Value Reference Range Interpretation Comments Chloride Lvl (test code = Chloride Lvl) 109 95-109 [place] 928402-07-16 02:21:00 Test Item Value Reference Range Interpretation Comments CO2 (test code = CO2) 21 24-32 [place] 928402-07-16 02:21:00 Test Item Value Reference Range Interpretation Comments Calcium Lvl (test code = Calcium Lvl) 9.6 8.5-10.5 [place] 928402-07-16 02:21:00 Test Item Value Reference Range Interpretation Comments Total Protein (test code = Total 7.2 6.4-8.4 Protein) [place] 928402-07-16 02:21:00 Test Item Value Reference Range Interpretation Comments Albumin Lvl (test code = Albumin Lvl) 2.9 3.5-5.0 [place] 928402-07-16 02:21:00 Test Item Value Reference Range Interpretation Comments ALT (test code = ALT) 20 See_Comment [Auto mated message] The system which ge nerated this result transmit perico reference range : <=65. The reference range was not used to interpr et this result as sincere l/abnormal. [place] 928402-07-16 02:21:00 Test Item Value Reference Range Interpretation Comments AST (test code = AST) 16 See_Comment [Auto mated message] The system which ge nerated this result transmit perico reference range : <=37. The reference range was not used to interpr et this result as sincere l/abnormal. [place] 928402-07-16 02:21:00 Test Item Value Reference Range Interpretation Comments Alk Phos (test code = Alk Phos) 180 39-136 [place] 928402-07-16 02:21:00 Test Item Value Reference Range Interpretation Comments Bili Total (test code = Bili Total) 0.5 0.2-1.3 [facility]2022-07-16 02:21:00 Test Item Value Reference Range Interpretation Comments AGAP (test code = AGAP) 12.5 10.0-20.0 [place] 928402-07-16 02:21:00 Test Item Value Reference Range Interpretation Comments B/C Ratio (test code = B/C Ratio) 14 1 6-25 [place] 928402-07-16 02:21:00 Test Item Value Reference Range Interpretation Comments Globulin (test code = Globulin) 4.3 2.7-4.2 [place] 928402-07-16 02:21:00 Test Item Value Reference Range Interpretation Comments A/G Ratio (test code = A/G Ratio) 0.7 1 0.7-1.6 [place] 928402-07-16 02:21:00 Test Item Value Reference Range Interpretation Comments eGFR (test code = eGFR) 136 [place] 298862-07-16 02:21:00 Test Item Value Reference Range Interpretation Comments U Creatinine (test code = U Creatinine) 39.60 [place] 298862-07-16 02:21:00 Test Item Value Reference Range Interpretation Comments U Protein (test code = U Protein) 11.1 [place] 298862-07-16 02:21:00 Test Item Value Reference Range Interpretation Comments U Prot/Creat (test code = U 0.28 1 Prot/Creat) [place] 928402-07-16 02:21:00 Test Item Value Reference Range Interpretation Comments Glucose Lvl (test code = Glucose Lvl) 62 70-99 [place] 928402-07-16 02:21:00 Test Item Value Reference Range Interpretation Comments BUN (test code = BUN) 7 7-22 [place] 928402-07-16 02:21:00 Test Item Value Reference Range Interpretation Comments Creatinine Lvl (test code = Creatinine 0.50 0.50-1.40 Lvl) [place] 928402-07-16 02:21:00 Test Item Value Reference Range Interpretation Comments Sodium Lvl (test code = Sodium Lvl) 139 135-145 [place] 928402-07-16 02:21:00 Test Item Value Reference Range Interpretation Comments Potassium Lvl (test code = Potassium 3.5 3.5-5.1 Lvl) [facility] [id number] 02:21:00 Test Item Value Reference Range Interpretation Comments Chloride Lvl (test code = Chloride Lvl) 109 95-109 [place] 928402-07-16 02:21:00 Test Item Value Reference Range Interpretation Comments CO2 (test code = CO2) 21 24-32 [facility]TR[place] [id number] 02:21:00 Test Item Value Reference Range Interpretation Comments Calcium Lvl (test code = Calcium Lvl) 9.6 8.5-10.5 [facility] [id number] 02:21:00 Test Item Value Reference Range Interpretation Comments Total Protein (test code = Total 7.2 6.4-8.4 Protein) [place] 928402-07-16 02:21:00 Test Item Value Reference Range Interpretation Comments Albumin Lvl (test code = Albumin Lvl) 2.9 3.5-5.0 [facility] [id number] 02:21:00 Test Item Value Reference Range Interpretation Comments ALT (test code = ALT) 20 See_Comment [Auto mated message] The system which ge nerated this result transmit perico reference range : <=65. The reference range was not used to interpr et this result as sincere l/abnormal. [facility] [id number] 02:21:00 Test Item Value Reference Range Interpretation Comments AST (test code = AST) 16 See_Comment [Auto mated message] The system which ge nerated this result transmit perico reference range : <=37. The reference range was not used to interpr et this result as sincere l/abnormal. [facility] [id number] 02:21:00 Test Item Value Reference Range Interpretation Comments Alk Phos (test code = Alk Phos) 180 39-136 [facility] [id number] 02:21:00 Test Item Value Reference Range Interpretation Comments Bili Total (test code = Bili Total) 0.5 0.2-1.3 [facility] [id number] 02:21:00 Test Item Value Reference Range Interpretation Comments AGAP (test code = AGAP) 12.5 10.0-20.0 [place] 928402-07-16 02:21:00 Test Item Value Reference Range Interpretation Comments B/C Ratio (test code = B/C Ratio) 14 1 6-25 [place] [address]-07-16 02:21:00 Test Item Value Reference Range Interpretation Comments Globulin (test code = Globulin) 4.3 2.7-4.2 [place] 928402-07-16 02:21:00 Test Item Value Reference Range Interpretation Comments A/G Ratio (test code = A/G Ratio) 0.7 1 0.7-1.6 [place] [address]-07-16 02:21:00 Test Item Value Reference Range Interpretation Comments eGFR (test code = eGFR) 136 [place] [address]-07-16 02:21:00 Test Item Value Reference Range Interpretation Comments U Creatinine (test code = U Creatinine) 39.60 [place] [address]-07-16 02:21:00 Test Item Value Reference Range Interpretation Comments U Protein (test code = U Protein) 11.1 [place] [address]-07-16 02:21:00 Test Item Value Reference Range Interpretation Comments U Prot/Creat (test code = U 0.28 1 Prot/Creat) [facility] HospitalErwqfztHEHFBHWEQV2888-56-45 21:33:00 Test Item Value Reference Range Interpretation Comments Fibrinogen Lvl (test code = Fibrinogen 552 230-510 Lvl) [facility] HospitalZurnbcaAKAJLSKBQS7015-36-06 21:33:00 Test Item Value Reference Range Interpretation Comments Fibrinogen Lvl (test code = Fibrinogen 552 230-510 Lvl) [facility] HospitalSdyljsqLMIZHBXMYH9997-69-97 21:33:00 Test Item Value Reference Range Interpretation Comments Fibrinogen Lvl (test code = Fibrinogen 552 230-510 Lvl) [facility] HospitalTsbkwbvJWGMTYXUEZ3831-92-90 21:33:00 Test Item Value Reference Range Interpretation Comments Fibrinogen Lvl (test code = Fibrinogen 552 230-510 Lvl) [facility] HospitalHoeofmkHPRESORJNQ9764-77-18 21:32:00 Test Item Value Reference Range Interpretation Comments PT (test code = PT) 12.6 s 12.0-14.7 [facility] HospitalBcyczqhTUKHEQTEIT9825-75-45 21:32:00 Test Item Value Reference Range Interpretation Comments INR (test code = INR) 0.95 1 0.85-1.17 [facility]ZxoipyuIUKAVDOGVT0468-88-74 21:32:00 Test Item Value Reference Range Interpretation Comments PTT (test code = PTT) 27.2 s 22.9-35.8 [facility] HospitalOiazebsIONOVELVAC8030-24-41 21:32:00 Test Item Value Reference Range Interpretation Comments PT (test code = PT) 12.6 s 12.0-14.7 [facility] HospitalLtujtelNSGWJDETKB0280-63-51 21:32:00 Test Item Value Reference Range Interpretation Comments INR (test code = INR) 0.95 1 0.85-1.17 [facility] HospitalEnrdkhhTKGXPMJUEI2200-97-91 21:32:00 Test Item Value Reference Range Interpretation Comments PTT (test code = PTT) 27.2 s 22.9-35.8 [facility] HospitalIodtdcqPTBDOQYVJY2808-58-67 21:32:00 Test Item Value Reference Range Interpretation Comments PT (test code = PT) 12.6 s 12.0-14.7 [facility] HospitalEgxgyzbKQLPKMOFIL6475-29-02 21:32:00 Test Item Value Reference Range Interpretation Comments INR (test code = INR) 0.95 1 0.85-1.17 [facility] HospitalNzzybjzUAMONMDUAR2061-90-78 21:32:00 Test Item Value Reference Range Interpretation Comments PTT (test code = PTT) 27.2 s 22.9-35.8 [facility] HospitalRzjlhziPNMWJAQLCJ5883-89-46 21:32:00 Test Item Value Reference Range Interpretation Comments PT (test code = PT) 12.6 s 12.0-14.7 [facility] HospitalGunwgvhDVCZZJDBBO7951-30-19 21:32:00 Test Item Value Reference Range Interpretation Comments INR (test code = INR) 0.95 1 0.85-1.17 [facility] HospitalPrpzhxwDVPKMWKCHH5743-45-14 21:32:00 Test Item Value Reference Range Interpretation Comments PTT (test code = PTT) 27.2 s 22.9-35.8 [facility] [id number] 21:31:00 Test Item Value Reference Range Interpretation Comments ABO/Rh (test code = ABO/Rh) A POS [facility] [employer] [employer] [id number] 21:31:00 Test Item Value Reference Range Interpretation Comments Antibody Scrn (test Negative (05/27/22 4:31 code = Antibody Scrn) PM) [facility] HospitalIltzhqbRBXOSHEAHF3561-46-20 21:31:00 Test Item Value Reference Range Interpretation Comments WBC (test code = WBC) 13.4 3.7-10.4 [facility] HospitalGuafxuzCPQAYSATBJ2764-27-80 21:31:00 Test Item Value Reference Range Interpretation Comments RBC (test code = RBC) 4.09 4.20-5.40 [facility] HospitalOojfwgoEXQBEKEOSG6114-18-23 21:31:00 Test Item Value Reference Range Interpretation Comments Hgb (test code = Hgb) 12.2 12.0-16.0 [facility] HospitalTlrajrgDJLPQAYHME5296-40-50 21:31:00 Test Item Value Reference Range Interpretation Comments Hct (test code = Hct) 35.9 36.0-48.0 [facility] Hospital[facility]zdsfmkFEBGSYVRCW1725-24-18 21:31:00 Test Item Value Reference Range Interpretation Comments MCV (test code = MCV) 87.8 80.0-98.0 [facility]RokotxoMFPUUZYGEC5699-13-17 21:31:00 Test Item Value Reference Range Interpretation Comments MCH (test code = MCH) 29.9 pg 27.0-31.0 [facility] HospitalLdyakrhPNUAYPWGVM0902-34-52 21:31:00 Test Item Value Reference Range Interpretation Comments MCHC (test code = MCHC) 34.0 32.0-36.0 [facility] HospitalNfhvkzxKTYWNXPZIR0026-59-38 21:31:00 Test Item Value Reference Range Interpretation Comments RDW (test code = RDW) 13.7 11.5-14.5 [facility] HospitalHxbnopvAUGKVNFCRI4176-29-83 21:31:00 Test Item Value Reference Range Interpretation Comments Platelet (test code = Platelet) 177 133-450 [facility] HospitalCxkmfbrTUZHFXGHIE0797-80-89 21:31:00 Test Item Value Reference Range Interpretation Comments MPV (test code = MPV) 10.1 7.4-10.4 [facility] HospitalVxbnggoXLNDFYIQQQ9926-61-79 21:31:00 Test Item Value Reference Range Interpretation Comments Segs (test code = Segs) 80.1 45.0-75.0 [facility] HospitalYdgmqflOURAWOGFVX2539-33-89 21:31:00 Test Item Value Reference Range Interpretation Comments Lymphocytes (test code = Lymphocytes) 13.8 20.0-40.0 [facility] HospitalOhecowhCWCCJCRGYI0577-56-14 21:31:00 Test Item Value Reference Range Interpretation Comments Monocytes (test code = Monocytes) 5.7 2.0-12.0 [facility] HospitalDcgtxjsPAECCDDBUN3090-40-82 21:31:00 Test Item Value Reference Range Interpretation Comments Eosinophils (test code = Eosinophils) 0.2 <=4.0 [facility] HospitalIplfyusFZNUNYYKBB5074-21-30 21:31:00 Test Item Value Reference Range Interpretation Comments Basophils (test code = Basophils) 0.2 <=1.0 [facility] HospitalEvsonkyKTJCXEKHQM6403-78-85 21:31:00 Test Item Value Reference Range Interpretation Comments Neutrophils # (test code = Neutrophils 10.7 1.5-8.1 #) [facility] HospitalHdhpzncTLFGJSVQQD8923-77-69 21:31:00 Test Item Value Reference Range Interpretation Comments Lymphocytes # (test code = Lymphocytes 1.8 1.0-5.5 #) [facility] HospitalDlpftmsFITBGMZFIF6825-86-04 21:31:00 Test Item Value Reference Range Interpretation Comments Monocytes # (test code = Monocytes #) 0.8 <=0.8 [facility]GwyvtkvLRTLUWASTA9923-36-89 21:31:00 Test Item Value Reference Range Interpretation Comments Hep Bs Ag (test code Negative *NA*(05/27/22 = Hep Bs Ag) 4:31 PM) [facility] CenterGkuzawcDQQQGMQGMM4340-61-22 21:31:00 Test Item Value Reference Range Interpretation Comments HIV Ag/Ab 4th Gen Negative *NA*(05/27/22 (test code = HIV 4:31 PM) Ag/Ab 4th Gen) [facility] CenterIwvdanrOAKUXUZXDS1148-12-36 21:31:00 Test Item Value Reference Range Interpretation Comments Treponemal Ab (test code Non-Reactive = Treponemal Ab) *NA*(05/27/22 4:31 PM) [facility] [id number] 21:31:00 Test Item Value Reference Range Interpretation Comments ABO/Rh (test code = ABO/Rh) A POS [facility] XHDTGCZ9422-08-59 21:31:00 Test Item Value Reference Range Interpretation Comments Antibody Scrn (test Negative (05/27/22 4:31 code = Antibody Scrn) PM) [facility] HospitalEeykilbWWCTMMJQVL6041-88-96 21:31:00 Test Item Value Reference Range Interpretation Comments WBC (test code = WBC) 13.4 3.7-10.4 [facility] HospitalXcgdsknKREQJVOVDX2740-91-93 21:31:00 Test Item Value Reference Range Interpretation Comments RBC (test code = RBC) 4.09 4.20-5.40 [facility] HospitalTpphfigBUMNLADGGY4525-93-06 21:31:00 Test Item Value Reference Range Interpretation Comments Hgb (test code = Hgb) 12.2 12.0-16.0 [facility] HospitalFwufzuxSZFYZBUKCF9524-85-95 21:31:00 Test Item Value Reference Range Interpretation Comments Hct (test code = Hct) 35.9 36.0-48.0 [facility] HospitalIaznsljVGNTYQKDMG2081-82-58 21:31:00 Test Item Value Reference Range Interpretation Comments MCV (test code = MCV) 87.8 80.0-98.0 [facility] HospitalMxgypfeIFFYNGXEND7618-07-73 21:31:00 Test Item Value Reference Range Interpretation Comments MCH (test code = MCH) 29.9 pg 27.0-31.0 [facility] HospitalJplazdwYXJAXXXNFR4753-44-00 21:31:00 Test Item Value Reference Range Interpretation Comments MCHC (test code = MCHC) 34.0 32.0-36.0 [facility] HospitalIrsbirkUBHDPEWRLN7029-31-40 21:31:00 Test Item Value Reference Range Interpretation Comments RDW (test code = RDW) 13.7 11.5-14.5 [facility] HospitalSzfxzrxDCAIEUGCKI0878-75-63 21:31:00 Test Item Value Reference Range Interpretation Comments Platelet (test code = Platelet) 177 133-450 [facility] HospitalOmyqzepSFCQABIVCH4742-73-87 21:31:00 Test Item Value Reference Range Interpretation Comments MPV (test code = MPV) 10.1 7.4-10.4 [place] 715872-07-15 21:31:00 Test Item Value Reference Range Interpretation Comments Segs (test code = Segs) 80.1 45.0-75.0 [facility] HospitalWkpqmieAKCRDJCQGQ0859-92-17 21:31:00 Test Item Value Reference Range Interpretation Comments Lymphocytes (test code = Lymphocytes) 13.8 20.0-40.0 [facility] HospitalCjassunUFGYJBVWUJ9385-12-18 21:31:00 Test Item Value Reference Range Interpretation Comments Monocytes (test code = Monocytes) 5.7 2.0-12.0 [facility] HospitalGpkyycvMQOYUCMYIU2229-15-93 21:31:00 Test Item Value Reference Range Interpretation Comments Eosinophils (test code = 0.2 See_Comment [A utomated message] The Eosinophils) system which ge nerated this result tra nsmitted reference range : <=4.0. The reference r malcolm was not used to int erpret this result as normal/abnormal . [facility] HospitalOlrdplwXCXXZWWAVO0213-10-32 21:31:00 Test Item Value Reference Range Interpretation Comments Basophils (test code = 0.2 See_Comment [Aut omated message] The Basophils) system which ge nerated this result tra nsmitted reference range : <=1.0. The reference r malcolm was not used to int erpret this result as normal/abnormal . [facility] HospitalMeiioibNLEHIWZQAA2860-45-88 21:31:00 Test Item Value Reference Range Interpretation Comments Neutrophils # (test code = Neutrophils 10.7 1.5-8.1 #) [facility] HospitalTbgbnsoDVJJIRSBOO8034-70-05 21:31:00 Test Item Value Reference Range Interpretation Comments Lymphocytes # (test code = Lymphocytes 1.8 1.0-5.5 #) [facility] HospitalDydfgsvMSUZVSRYKG6045-13-95 21:31:00 Test Item Value Reference Range Interpretation Comments Monocytes # (test code 0.8 See_Comment [Aut omated message] The = Monocytes #) system which generated this result tra nsmitted reference range : <=0.8. The reference r malcolm was not used to int erpret this result as normal/abnormal . [facility]OwwstdlSYQEOZCOJL0740-37-36 21:31:00 Test Item Value Reference Range Interpretation Comments Hep Bs Ag (test code Negative *NA*(05/27/22 = Hep Bs Ag) 4:31 PM) [facility] HospitalLbiczmrRSEROYLLOI3958-16-54 21:31:00 Test Item Value Reference Range Interpretation Comments HIV Ag/Ab 4th Gen Negative *NA*(05/27/22 (test code = HIV 4:31 PM) Ag/Ab 4th Gen) [facility] HospitalHwvqeauWVEQWJTZCG0101-09-12 21:31:00 Test Item Value Reference Range Interpretation Comments Treponemal Ab (test code Non-Reactive = Treponemal Ab) *NA*(05/27/22 4:31 PM) [facility] BANK VYNIMPO2518-17-39 21:31:00 Test Item Value Reference Range Interpretation Comments ABO/Rh (test code = ABO/Rh) A POS [facility] [id number] 21:31:00 Test Item Value Reference Range Interpretation Comments Antibody Scrn (test Negative (05/27/22 4:31 code = Antibody Scrn) PM) [facility] HospitalCxvvybqOSXVXRXKKR4621-68-33 21:31:00 Test Item Value Reference Range Interpretation Comments WBC (test code = WBC) 13.4 3.7-10.4 [facility] HospitalRxcrjqmJTZRSWCHMX3993-83-12 21:31:00 Test Item Value Reference Range Interpretation Comments RBC (test code = RBC) 4.09 4.20-5.40 [facility] HospitalRlshrpsAXALVAGRFV9954-12-38 21:31:00 Test Item Value Reference Range Interpretation Comments Hgb (test code = Hgb) 12.2 12.0-16.0 [facility] HospitalCikthhhGXZYZTQVBM0705-70-12 21:31:00 Test Item Value Reference Range Interpretation Comments Hct (test code = Hct) 35.9 36.0-48.0 [facility] HospitalUdfgxxoMPBDUQPRYR3497-56-85 21:31:00 Test Item Value Reference Range Interpretation Comments MCV (test code = MCV) 87.8 80.0-98.0 [facility] HospitalMxzcwfyJPQFAFBQNG5738-71-36 21:31:00 Test Item Value Reference Range Interpretation Comments MCH (test code = MCH) 29.9 pg 27.0-31.0 [facility] HospitalWrvlueqEAWYPXVZXU9769-01-30 21:31:00 Test Item Value Reference Range Interpretation Comments MCHC (test code = MCHC) 34.0 32.0-36.0 [facility] HospitalWkcxnvpLTKESWESCK8104-31-34 21:31:00 Test Item Value Reference Range Interpretation Comments RDW (test code = RDW) 13.7 11.5-14.5 [facility] HospitalMhxkqehGBVDPVBRZA7254-00-84 21:31:00 Test Item Value Reference Range Interpretation Comments Platelet (test code = Platelet) 177 133-450 [facility] HospitalKrpflwoGAWQZNZINM6445-43-67 21:31:00 Test Item Value Reference Range Interpretation Comments MPV (test code = MPV) 10.1 7.4-10.4 [facility] HospitalCwcqiesJITTFIXANI8016-44-59 21:31:00 Test Item Value Reference Range Interpretation Comments Segs (test code = Segs) 80.1 45.0-75.0 [place] 715872-07-15 21:31:00 Test Item Value Reference Range Interpretation Comments Lymphocytes (test code = Lymphocytes) 13.8 20.0-40.0 [place] 715872-07-15 21:31:00 Test Item Value Reference Range Interpretation Comments Monocytes (test code = Monocytes) 5.7 2.0-12.0 [place] 715872-07-15 21:31:00 Test Item Value Reference Range Interpretation Comments Eosinophils (test code = 0.2 See_Comment [A utomated message] The Eosinophils) system which ge nerated this result tra nsmitted reference range : <=4.0. The reference r malcolm was not used to int erpret this result as normal/abnormal . [place] 715872-07-15 21:31:00 Test Item Value Reference Range Interpretation Comments Basophils (test code = 0.2 See_Comment [Aut omated message] The Basophils) system which ge nerated this result tra nsmitted reference range : <=1.0. The reference r malcolm was not used to int erpret this result as normal/abnormal . [facility] HospitalYkxqosgFYRCEMSNUP5955-69-71 21:31:00 Test Item Value Reference Range Interpretation Comments Neutrophils # (test code = Neutrophils 10.7 1.5-8.1 #) [place] 715872-07-15 21:31:00 Test Item Value Reference Range Interpretation Comments Lymphocytes # (test code = Lymphocytes 1.8 1.0-5.5 #) [place] 715872-07-15 21:31:00 Test Item Value Reference Range Interpretation Comments Monocytes # (test code 0.8 See_Comment [Aut omated message] The = Monocytes #) system which generated this result tra nsmitted reference range : <=0.8. The reference r malcolm was not used to int erpret this result as normal/abnormal . [place] 112242-07-15 21:31:00 Test Item Value Reference Range Interpretation Comments Hep Bs Ag (test code Negative *NA*(05/27/22 = Hep Bs Ag) 4:31 PM) [place] 112242-07-15 21:31:00 Test Item Value Reference Range Interpretation Comments HIV Ag/Ab 4th Gen Negative *NA*(05/27/22 (test code = HIV 4:31 PM) Ag/Ab 4th Gen) [facility] HospitalRbyfgahIISPQJFSVD8323-51-33 21:31:00 Test Item Value Reference Range Interpretation Comments Treponemal Ab (test code Non-Reactive = Treponemal Ab) *NA*(05/27/22 4:31 PM) [facility] [employer] [id number] 21:31:00 Test Item Value Reference Range Interpretation Comments ABO/Rh (test code = ABO/Rh) A POS [facility] [employer] [id number] 21:31:00 Test Item Value Reference Range Interpretation Comments Antibody Scrn (test Negative (05/27/22 4:31 code = Antibody Scrn) PM) [facility]IkcosrsRWCLDFYTFG4775-28-79 21:31:00 Test Item Value Reference Range Interpretation Comments WBC (test code = WBC) 13.4 3.7-10.4 [facility] ArlingtonQyofztdXSRNFRLVVS8932-83-27 21:31:00 Test Item Value Reference Range Interpretation Comments RBC (test code = RBC) 4.09 4.20-5.40 [facility] ArlingtonJcikwilRXHMYIFUXG3789-93-24 21:31:00 Test Item Value Reference Range Interpretation Comments Hgb (test code = Hgb) 12.2 12.0-16.0 [facility] ArlingtonWuqnaxqBAHBLBYYJA9096-71-51 21:31:00 Test Item Value Reference Range Interpretation Comments Hct (test code = Hct) 35.9 36.0-48.0 [facility] ArlingtonOyjtlpwYQHYIRJGSP6596-96-16 21:31:00 Test Item Value Reference Range Interpretation Comments MCV (test code = MCV) 87.8 80.0-98.0 [facility] ArlingtonIguaomuPAGRYDYOMM1580-64-97 21:31:00 Test Item Value Reference Range Interpretation Comments MCH (test code = MCH) 29.9 pg 27.0-31.0 [facility] ArlingtonFfuqvezLHIFWLGNIS5982-99-58 21:31:00 Test Item Value Reference Range Interpretation Comments MCHC (test code = MCHC) 34.0 32.0-36.0 [facility] ArlingtonJmuybehEMJWSDQYBD4440-95-70 21:31:00 Test Item Value Reference Range Interpretation Comments RDW (test code = RDW) 13.7 11.5-14.5 [facility] HospitalUtkpfvmIEYISNYLZR2328-32-12 21:31:00 Test Item Value Reference Range Interpretation Comments Platelet (test code = Platelet) 177 133-450 [place] 715872-07-15 21:31:00 Test Item Value Reference Range Interpretation Comments MPV (test code = MPV) 10.1 7.4-10.4 [place] 715872-07-15 21:31:00 Test Item Value Reference Range Interpretation Comments Segs (test code = Segs) 80.1 45.0-75.0 [place] 715872-07-15 21:31:00 Test Item Value Reference Range Interpretation Comments Lymphocytes (test code = Lymphocytes) 13.8 20.0-40.0 [place] 715872-07-15 21:31:00 Test Item Value Reference Range Interpretation Comments Monocytes (test code = Monocytes) 5.7 2.0-12.0 [place] 715872-07-15 21:31:00 Test Item Value Reference Range Interpretation Comments Eosinophils (test code = 0.2 See_Comment [A utomated message] The Eosinophils) system which ge nerated this result tra nsmitted reference range : <=4.0. The reference r malcolm was not used to int erpret this result as normal/abnormal . [facility] HospitalIljgjcvMGGMFHANSV0714-15-53 21:31:00 Test Item Value Reference Range Interpretation Comments Basophils (test code = 0.2 See_Comment [Aut omated message] The Basophils) system which ge nerated this result tra nsmitted reference range : <=1.0. The reference r malcolm was not used to int erpret this result as normal/abnormal . [facility] HospitalBohicohKWFPDDQJDM2413-85-41 21:31:00 Test Item Value Reference Range Interpretation Comments Neutrophils # (test code = Neutrophils 10.7 1.5-8.1 #) [place] [address]-07-15 21:31:00 Test Item Value Reference Range Interpretation Comments Lymphocytes # (test code = Lymphocytes 1.8 1.0-5.5 #) [place] [address]-07-15 21:31:00 Test Item Value Reference Range Interpretation Comments Monocytes # (test code 0.8 See_Comment [Aut omated message] The = Monocytes #) system which generated this result tra nsmitted reference range : <=0.8. The reference r malcolm was not used to int erpret this result as normal/abnormal . [facility] CenterYxcravtQMRGMATHWE6464-08-22 21:31:00 Test Item Value Reference Range Interpretation Comments Hep Bs Ag (test code Negative *NA*(05/27/22 = Hep Bs Ag) 4:31 PM) [facility] CenterZnnwnjcJLSNSYOEAG7110-55-83 21:31:00 Test Item Value Reference Range Interpretation Comments HIV Ag/Ab 4th Gen Negative *NA*(05/27/22 (test code = HIV 4:31 PM) Ag/Ab 4th Gen) [facility] CenterScwwsgqKGYVRKUZFY1026-79-44 21:31:00 Test Item Value Reference Range Interpretation Comments Treponemal Ab (test code Non-Reactive = Treponemal Ab) *NA*(05/27/22 4:31 PM) [facility] CenterWwvnqiiBBGNQHBASZ1864-62-14 19:14:00 Test Item Value Reference Range Interpretation Comments Coronavirus (COVID-19) Detected MILAGROS (test code = 2*ABN*(05/27/22 2:14 Coronavirus (COVID-19) PM) MILAGROS) [facility] CenterVupgedpWDELFXQURZ6189-43-37 19:14:00 Test Item Value Reference Range Interpretation Comments Coronavirus (COVID-19) Detected MILAGROS (test code = 2*ABN*(05/27/22 2:14 Coronavirus (COVID-19) PM) MILARGOS) [facility] CenterCfmwimzJWDYXQEKFK6459-83-37 19:14:00 Test Item Value Reference Range Interpretation Comments Coronavirus (COVID-19) Detected MILAGROS (test code = 2*ABN*(05/27/22 2:14 Coronavirus (COVID-19) PM) MILAGROS) [facility] CenterTiaatvyDFUQSVTSXO7472-70-01 19:14:00 Test Item Value Reference Range Interpretation Comments Coronavirus (COVID-19) Detected MILAGROS (test code = 2*ABN*(05/27/22 2:14 Coronavirus (COVID-19) PM) MILAGROS) [facility]2022-06-18 01:25:00 Test Item Value Reference Range Interpretation Comments UA Color (test code = Yellow *NA*(04/29/22 UA Color) 8:25 PM) [facility] [id number] 01:25:00 Test Item Value Reference Range Interpretation Comments UA Turbidity (test code Slight *ABN*(04/29/22 = UA Turbidity) 8:25 PM) [facility] AND [id number] 01:25:00 Test Item Value Reference Range Interpretation Comments UA Spec Grav (test code = UA Spec 1.018 1 Grav) [facility] AND [id number] 01:25:00 Test Item Value Reference Range Interpretation Comments UA pH (test code = UA pH) 6.0 1 5.0-8.0 [facility] AND [id number] 01:25:00 Test Item Value Reference Range Interpretation Comments UA Protein (test code = UA Negative mg/dL Protein) [facility] AND [id number] 01:25:00 Test Item Value Reference Range Interpretation Comments UA Glucose (test code = UA Negative mg/dL Glucose) [facility] AND GPCVM2370-08-22 01:25:00 Test Item Value Reference Range Interpretation Comments UA Ketones (test code = UA Negative mg/dL Ketones) [facility] AND [id number] 01:25:00 Test Item Value Reference Range Interpretation Comments UA Bili (test code = Negative *NA*(04/29/22 UA Bili) 8:25 PM) [facility] AND [id number] 01:25:00 Test Item Value Reference Range Interpretation Comments UA Blood (test code = Negative (04/29/22 8:25 UA Blood) PM) [facility] AND [id number] 01:25:00 Test Item Value Reference Range Interpretation Comments UA Urobilinogen (test code = UA no gt 0.1-1.0 Urobilinogen) [facility] AND [id number] 01:25:00 Test Item Value Reference Range Interpretation Comments UA Nitrite (test code Negative (04/29/22 8:25 = UA Nitrite) PM) [facility] AND [id number] 01:25:00 Test Item Value Reference Range Interpretation Comments UA Leuk Est (test code Small *ABN*(04/29/22 = UA Leuk Est) 8:25 PM) [facility] AND [id number] 01:25:00 Test Item Value Reference Range Interpretation Comments UA Sq Epi (test code = UA Sq Epi) Few /LPF [facility] AND [id number] 01:25:00 Test Item Value Reference Range Interpretation Comments UA WBC (test code = UA WBC) 6 <=5 [facility] [id number] 01:25:00 Test Item Value Reference Range Interpretation Comments UA RBC (test code = UA RBC) no gt <=2 [facility] AND [id number] 01:25:00 Test Item Value Reference Range Interpretation Comments UA Bacteria (test code = UA Occasional /HPF Bacteria) [facility] AND [id number] 01:25:00 Test Item Value Reference Range Interpretation Comments UA Mucus (test code = UA Mucus) Few /LPF [facility] AND [id number] 01:25:00 Test Item Value Reference Range Interpretation Comments UA Color (test code = Yellow *NA*(04/29/22 UA Color) 8:25 PM) [facility] AND [id number] 01:25:00 Test Item Value Reference Range Interpretation Comments UA Turbidity (test code Slight *ABN*(04/29/22 = UA Turbidity) 8:25 PM) [facility] AND [id number] 01:25:00 Test Item Value Reference Range Interpretation Comments UA Spec Grav (test code = UA Spec 1.018 1 Grav) [facility] AND [id number] 01:25:00 Test Item Value Reference Range Interpretation Comments UA pH (test code = UA pH) 6.0 1 5.0-8.0 [facility] AND [id number] 01:25:00 Test Item Value Reference Range Interpretation Comments UA Protein (test code = UA Negative mg/dL Protein) [facility] AND [id number] 01:25:00 Test Item Value Reference Range Interpretation Comments UA Glucose (test code = UA Negative mg/dL Glucose) [facility] AND [id number] 01:25:00 Test Item Value Reference Range Interpretation Comments UA Ketones (test code = UA Negative mg/dL Ketones) [facility] AND [id number] 01:25:00 Test Item Value Reference Range Interpretation Comments UA Bili (test code = Negative *NA*(04/29/22 UA Bili) 8:25 PM) [facility] AND [id number] 01:25:00 Test Item Value Reference Range Interpretation Comments UA Blood (test code = Negative (04/29/22 8:25 UA Blood) PM) [facility] [id number] 01:25:00 Test Item Value Reference Range Interpretation Comments UA Urobilinogen (test code = UA no gt 0.1-1.0 Urobilinogen) [facility] [id number] 01:25:00 Test Item Value Reference Range Interpretation Comments UA Nitrite (test code Negative (04/29/22 8:25 = UA Nitrite) PM) [facility] [id number] 01:25:00 Test Item Value Reference Range Interpretation Comments UA Leuk Est (test code Small *ABN*(04/29/22 = UA Leuk Est) 8:25 PM) [facility] [id number] 01:25:00 Test Item Value Reference Range Interpretation Comments UA Sq Epi (test code = UA Sq Epi) Few /LPF [facility] AND [id number] 01:25:00 Test Item Value Reference Range Interpretation Comments UA WBC (test code = 6 See_Comment [Automa perico message] The UA WBC) system which ge nerated this result transmit perico reference range : <=5. The reference range was not used to interpr et this result as sincere l/abnormal. [facility] [id number] 01:25:00 Test Item Value Reference Range Interpretation Comments UA RBC (test code = no gt See_Comment [Automa perico message] The UA RBC) system which ge nerated this result transmit perico reference range : <=2. The reference range was not used to interpr et this result as sincere l/abnormal. [facility] [id number] 01:25:00 Test Item Value Reference Range Interpretation Comments UA Bacteria (test code = UA Occasional /HPF Bacteria) [facility] [id number] 01:25:00 Test Item Value Reference Range Interpretation Comments UA Mucus (test code = UA Mucus) Few /LPF [facility] [id number] 01:25:00 Test Item Value Reference Range Interpretation Comments UA Color (test code = Yellow *NA*(04/29/22 UA Color) 8:25 PM) [facility] [id number] 01:25:00 Test Item Value Reference Range Interpretation Comments UA Turbidity (test code Slight *ABN*(04/29/22 = UA Turbidity) 8:25 PM) [facility] AND [id number] 01:25:00 Test Item Value Reference Range Interpretation Comments UA Spec Grav (test code = UA Spec 1.018 1 Grav) [facility] AND [id number] 01:25:00 Test Item Value Reference Range Interpretation Comments UA pH (test code = UA pH) 6.0 1 5.0-8.0 [facility] AND [id number] 01:25:00 Test Item Value Reference Range Interpretation Comments UA Protein (test code = UA Negative mg/dL Protein) [facility] AND [id number] 01:25:00 Test Item Value Reference Range Interpretation Comments UA Glucose (test code = UA Negative mg/dL Glucose) [facility] AND [id number] 01:25:00 Test Item Value Reference Range Interpretation Comments UA Ketones (test code = UA Negative mg/dL Ketones) [facility] AND [id number] 01:25:00 Test Item Value Reference Range Interpretation Comments UA Bili (test code = Negative *NA*(04/29/22 UA Bili) 8:25 PM) [facility] AND [id number] 01:25:00 Test Item Value Reference Range Interpretation Comments UA Blood (test code = Negative (04/29/22 8:25 UA Blood) PM) [facility] AND [id number] 01:25:00 Test Item Value Reference Range Interpretation Comments UA Urobilinogen (test code = UA no gt 0.1-1.0 Urobilinogen) [facility] AND [id number] 01:25:00 Test Item Value Reference Range Interpretation Comments UA Nitrite (test code Negative (04/29/22 8:25 = UA Nitrite) PM) [facility] AND [id number] 01:25:00 Test Item Value Reference Range Interpretation Comments UA Leuk Est (test code Small *ABN*(04/29/22 = UA Leuk Est) 8:25 PM) [facility] AND [id number] 01:25:00 Test Item Value Reference Range Interpretation Comments UA Sq Epi (test code = UA Sq Epi) [facility]F [facility] [id number] 01:25:00 Test Item Value Reference Range Interpretation Comments UA WBC (test code = 6 See_Comment [Automa perico message] The UA WBC) system which ge nerated this result transmit perico reference range : <=5. The reference range was not used to interpr et this result as sincere l/abnormal. [facility] [id number] 01:25:00 Test Item Value Reference Range Interpretation Comments UA RBC (test code = no gt See_Comment [Automa perico message] The UA RBC) system which ge nerated this result transmit perico reference range : <=2. The reference range was not used to interpr et this result as sincere l/abnormal. [facility] [id number] 01:25:00 Test Item Value Reference Range Interpretation Comments UA Bacteria (test code = UA Occasional /HPF Bacteria) [facility] [id number] 01:25:00 Test Item Value Reference Range Interpretation Comments UA Mucus (test code = UA Mucus) Few /LPF [facility] [id number] 01:25:00 Test Item Value Reference Range Interpretation Comments UA Color (test code = Yellow *NA*(04/29/22 UA Color) 8:25 PM) [facility] [id number] 01:25:00 Test Item Value Reference Range Interpretation Comments UA Turbidity (test code Slight *ABN*(04/29/22 = UA Turbidity) 8:25 PM) [facility] [id number] 01:25:00 Test Item Value Reference Range Interpretation Comments UA Spec Grav (test code = UA Spec 1.018 1 Grav) [facility] [id number] 01:25:00 Test Item Value Reference Range Interpretation Comments UA pH (test code = UA pH) 6.0 1 5.0-8.0 [facility] [id number] 01:25:00 Test Item Value Reference Range Interpretation Comments UA Protein (test code = UA Negative mg/dL Protein) [facility] [id number] 01:25:00 Test Item Value Reference Range Interpretation Comments UA Glucose (test code = UA Negative mg/dL Glucose) [facility] [id number] 01:25:00 Test Item Value Reference Range Interpretation Comments UA Ketones (test code = UA Negative mg/dL Ketones) [facility] [id number] 01:25:00 Test Item Value Reference Range Interpretation Comments UA Bili (test code = Negative *NA*(04/29/22 UA Bili) 8:25 PM) [facility] [id number] 01:25:00 Test Item Value Reference Range Interpretation Comments UA Blood (test code = Negative (04/29/22 8:25 UA Blood) PM) [facility] AND [id number] 01:25:00 Test Item Value Reference Range Interpretation Comments UA Urobilinogen (test code = UA no gt 0.1-1.0 Urobilinogen) [facility] AND [id number] 01:25:00 Test Item Value Reference Range Interpretation Comments UA Nitrite (test code Negative (04/29/22 8:25 = UA Nitrite) PM) [facility] AND [id number] 01:25:00 Test Item Value Reference Range Interpretation Comments UA Leuk Est (test code Small *ABN*(04/29/22 = UA Leuk Est) 8:25 PM) [facility] AND [id number] 01:25:00 Test Item Value Reference Range Interpretation Comments UA Sq Epi (test code = UA Sq Epi) Few /LPF [facility] AND [id number] 01:25:00 Test Item Value Reference Range Interpretation Comments UA WBC (test code = 6 See_Comment [Automa perico message] The UA WBC) system which ge nerated this result transmit perico reference range : <=5. The reference range was not used to interpr et this result as sincere l/abnormal. [facility] [id number] 01:25:00 Test Item Value Reference Range Interpretation Comments UA RBC (test code = no gt See_Comment [Automa perico message] The UA RBC) system which ge nerated this result transmit perico reference range : <=2. The reference range was not used to interpr et this result as sincere l/abnormal. [facility] [id number] 01:25:00 Test Item Value Reference Range Interpretation Comments UA Bacteria (test code = UA Occasional /HPF Bacteria) [facility] AND [id number] 01:25:00 Test Item Value Reference Range Interpretation Comments UA Mucus (test code = UA Mucus) Few /LPF [facility]2021-12-16 19:34:00 Test Item Value Reference Range Interpretation Comments Glucose Lvl (test code = Glucose Lvl) 85 70-99 [place] 928401-12-16 19:34:00 Test Item Value Reference Range Interpretation Comments BUN (test code = BUN) 5 7-22 [place] 928401-12-16 19:34:00 Test Item Value Reference Range Interpretation Comments Creatinine Lvl (test code = Creatinine 0.52 0.50-1.40 Lvl) [place] 928401-12-16 19:34:00 Test Item Value Reference Range Interpretation Comments Sodium Lvl (test code = Sodium Lvl) 134 135-145 [place] 928401-12-16 19:34:00 Test Item Value Reference Range Interpretation Comments Potassium Lvl (test code = Potassium 3.5 3.5-5.1 Lvl) [facility]2021-12-16 19:34:00 Test Item Value Reference Range Interpretation Comments Chloride Lvl (test code = Chloride Lvl) 103 95-109 [place] 928401-12-16 19:34:00 Test Item Value Reference Range Interpretation Comments CO2 (test code = CO2) 25 24-32 [place] 928401-12-16 19:34:00 Test Item Value Reference Range Interpretation Comments Calcium Lvl (test code = Calcium Lvl) 9.1 8.5-10.5 [place] 928401-12-16 19:34:00 Test Item Value Reference Range Interpretation Comments AGAP (test code = AGAP) 9.5 10.0-20.0 [place] 928401-12-16 19:34:00 Test Item Value Reference Range Interpretation Comments eGFR (test code = eGFR) 137 [facility]yliqrsJXWKOXVQGA8514-[facility]-24 19:34:00 Test Item Value Reference Range Interpretation Comments WBC (test code = WBC) 11.4 3.7-10.4 [place] 715871-12-16 19:34:00 Test Item Value Reference Range Interpretation Comments RBC (test code = RBC) 4.46 4.20-5.40 [facility] HospitalPmkrxdaRKSDLZYFZD1101-33-66 19:34:00 Test Item Value Reference Range Interpretation Comments Hgb (test code = Hgb) 13.3 12.0-16.0 [facility] Ho[id number] 19:34:00 Test Item Value Reference Range Interpretation Comments Hct (test code = Hct) 39.2 36.0-48.0 [facility] HospitalPsrlstuOPVGZLBCFX0567-34-13 19:34:00 Test Item Value Reference Range Interpretation Comments MCV (test code = MCV) 87.9 80.0-98.0 [facility] HospitalRziqcvfWGCAPRRVER6763-90-62 19:34:00 Test Item Value Reference Range Interpretation Comments MCH (test code = MCH) 29.8 pg 27.0-31.0 [facility] HospitalNgvjackPKXCMAQUMF7186-63-39 19:34:00 Test Item Value Reference Range Interpretation Comments MCHC (test code = MCHC) 33.9 32.0-36.0 [facility] HospitalFggejkaSFFCQNPXOD8209-60-40 19:34:00 Test Item Value Reference Range Interpretation Comments RDW (test code = RDW) 12.6 11.5-14.5 [facility] HospitalNoyliwgUYPNDQIPVT8678-58-92 19:34:00 Test Item Value Reference Range Interpretation Comments Platelet (test code = Platelet) 232 133-450 [facility] HospitalPyrbnfyAWUTBFAJPY0272-77-11 19:34:00 Test Item Value Reference Range Interpretation Comments MPV (test code = MPV) 9.1 7.4-10.4 [facility] HospitalVjoneseZNDYXDCZNR5146-37-63 19:34:00 Test Item Value Reference Range Interpretation Comments Segs (test code = Segs) 73.6 45.0-75.0 [facility] HospitalIpdzvkxJHXCLUHNPB4071-90-46 19:34:00 Test Item Value Reference Range Interpretation Comments Lymphocytes (test code = Lymphocytes) 19.6 20.0-40.0 [facility] HospitalLkaapqbFFJOUKRQWX0322-46-45 19:34:00 Test Item Value Reference Range Interpretation Comments Monocytes (test code = Monocytes) 6.0 2.0-12.0 [facility] HospitalRcykptoTJVEIHBMBN9856-18-88 19:34:00 Test Item Value Reference Range Interpretation Comments Eosinophils (test code = Eosinophils) 0.4 <=4.0 [facility] HospitalBvqslrzLLATSMNMSR7836-06-26 19:34:00 Test Item Value Reference Range Interpretation Comments Basophils (test code = Basophils) 0.4 <=1.0 [facility] HospitalMsrhzosFMNERPSPCU0172-06-80 19:34:00 Test Item Value Reference Range Interpretation Comments Neutrophils # (test code = Neutrophils 8.4 1.5-8.1 #) [facility] HospitalXnrxpduOOXODZXROC6666-09-41 19:34:00 Test Item Value Reference Range Interpretation Comments Lymphocytes # (test code = Lymphocytes 2.2 1.0-5.5 #) [facility] HospitalTlgosrvAPBLYCIWQS2688-90-13 19:34:00 Test Item Value Reference Range Interpretation Comments Monocytes # (test code = Monocytes #) 0.7 <=0.8 [facility] AND [id number] 19:34:00 Test Item Value Reference Range Interpretation Comments UA Color (test code = Jasmine *ABN*(10/28/21 UA Color) 1:34 PM) [facility] AND [id number] 19:34:00 Test Item Value Reference Range Interpretation Comments UA Turbidity (test code Marked *ABN*(10/28/21 = UA Turbidity) 1:34 PM) [facility] AND [id number] 19:34:00 Test Item Value Reference Range Interpretation Comments UA Spec Grav (test code = UA Spec 1.026 1 Grav) [facility] AND [id number] 19:34:00 Test Item Value Reference Range Interpretation Comments UA pH (test code = UA pH) 5.0 1 5.0-8.0 [facility] AND [id number] 19:34:00 Test Item Value Reference Range Interpretation Comments UA Protein (test code = UA Protein) 30 mg/dL [facility] AND [id number] 19:34:00 Test Item Value Reference Range Interpretation Comments UA Glucose (test code = UA Negative mg/dL Glucose) [facility] AND [id number] 19:34:00 Test Item Value Reference Range Interpretation Comments UA Ketones (test code = UA Ketones) 20 mg/dL [facility] AND [id number] 19:34:00 Test Item Value Reference Range Interpretation Comments UA Bili (test code = Negative *NA*(10/28/21 UA Bili) 1:34 PM) [facility] [id number] 19:34:00 Test Item Value Reference Range Interpretation Comments UA Blood (test code = Negative (10/28/21 1:34 UA Blood) PM) [facility] [id number] 19:34:00 Test Item Value Reference Range Interpretation Comments UA Urobilinogen (test code = UA 4.0 0.1-1.0 Urobilinogen) [facility] [id number] 19:34:00 Test Item Value Reference Range Interpretation Comments UA Nitrite (test code Negative (10/28/21 1:34 = UA Nitrite) PM) [facility] [id number] 19:34:00 Test Item Value Reference Range Interpretation Comments UA Leuk Est (test code Trace *ABN*(10/28/21 = UA Leuk Est) 1:34 PM) [facility] [id number] 19:34:00 Test Item Value Reference Range Interpretation Comments UA Sq Epi (test code = UA Sq Epi) Many /LPF [facility] [id number] 19:34:00 Test Item Value Reference Range Interpretation Comments UA WBC (test code = UA WBC) 6 <=5 [facility] [id number] 19:34:00 Test Item Value Reference Range Interpretation Comments UA RBC (test code = UA RBC) 3 <=2 [facility] [id number] 19:34:00 Test Item Value Reference Range Interpretation Comments UA Bacteria (test code = UA Occasional /HPF Bacteria) [facility] [id number] 19:34:00 Test Item Value Reference Range Interpretation Comments UA Mucus (test code = UA Mucus) Few /LPF [facility]CHE[facility] [id number] 19:34:00 Test Item Value Reference Range Interpretation Comments Glucose Lvl (test code = Glucose Lvl) 85 70-99 [facility] [id number] 19:34:00 Test Item Value Reference Range Interpretation Comments BUN (test code = BUN) 5 7-22 [facility] [id number] 19:34:00 Test Item Value Reference Range Interpretation Comments Creatinine Lvl (test code = Creatinine 0.52 0.50-1.40 Lvl) [facility] [id number] 19:34:00 Test Item Value Reference Range Interpretation Comments Sodium Lvl (test code = Sodium Lvl) 134 135-145 [place] 928401-12-16 19:34:00 Test Item Value Reference Range Interpretation Comments Potassium Lvl (test code = Potassium 3.5 3.5-5.1 Lvl) [place] 928401-12-16 19:34:00 Test Item Value Reference Range Interpretation Comments Chloride Lvl (test code = Chloride Lvl) 103 95-109 [place] 928401-12-16 19:34:00 Test Item Value Reference Range Interpretation Comments CO2 (test code = CO2) 25 24-32 [place] 928401-12-16 19:34:00 Test Item Value Reference Range Interpretation Comments Calcium Lvl (test code = Calcium Lvl) 9.1 8.5-10.5 [place] 928401-12-16 19:34:00 Test Item Value Reference Range Interpretation Comments AGAP (test code = AGAP) 9.5 10.0-20.0 [place] 928401-12-16 19:34:00 Test Item Value Reference Range Interpretation Comments eGFR (test code = eGFR) 137 [place] [address]-12-16 19:34:00 Test Item Value Reference Range Interpretation Comments WBC (test code = WBC) 11.4 3.7-10.4 [place] [address]-12-16 19:34:00 Test Item Value Reference Range Interpretation Comments RBC (test code = RBC) 4.46 4.20-5.40 [place] [address]-12-16 19:34:00 Test Item Value Reference Range Interpretation Comments Hgb (test code = Hgb) 13.3 12.0-16.0 [place] [address]-12-16 19:34:00 Test Item Value Reference Range Interpretation Comments Hct (test code = Hct) 39.2 36.0-48.0 [place] [address]-12-16 19:34:00 Test Item Value Reference Range Interpretation Comments MCV (test code = MCV) 87.9 80.0-98.0 [address]12-16 19:34:00 Test Item Value Reference Range Interpretation Comments MCH (test code = MCH) 29.8 pg 27.0-31.0 [place] 715871-12-16 19:34:00 Test Item Value Reference Range Interpretation Comments MCHC (test code = MCHC) 33.9 32.0-36.0 [place] 715871-12-16 19:34:00 Test Item Value Reference Range Interpretation Comments RDW (test code = RDW) 12.6 11.5-14.5 [place] 715871-12-16 19:34:00 Test Item Value Reference Range Interpretation Comments Platelet (test code = Platelet) 232 133-450 [place] 715871-12-16 19:34:00 Test Item Value Reference Range Interpretation Comments MPV (test code = MPV) 9.1 7.4-10.4 [place] 715871-12-16 19:34:00 Test Item Value Reference Range Interpretation Comments Segs (test code = Segs) 73.6 45.0-75.0 [facility] Ho[id number] 19:34:00 Test Item Value Reference Range Interpretation Comments Lymphocytes (test code = Lymphocytes) 19.6 20.0-40.0 [place] 715871-12-16 19:34:00 Test Item Value Reference Range Interpretation Comments Monocytes (test code = Monocytes) 6.0 2.0-12.0 [facility] HospitalRuumrspJDODJZVCCH0519-70-51 19:34:00 Test Item Value Reference Range Interpretation Comments Eosinophils (test code = 0.4 See_Comment [A utomated message] The Eosinophils) system which ge nerated this result tra nsmitted reference range : <=4.0. The reference r malcolm was not used to int erpret this result as normal/abnormal . [facility] HospitalKrdhddeGSIXMRDOUI9276-45-24 19:34:00 Test Item Value Reference Range Interpretation Comments Basophils (test code = 0.4 See_Comment [Aut omated message] The Basophils) system which ge nerated this result tra nsmitted reference range : <=1.0. The reference r malcolm was not used to int erpret this result as normal/abnormal . [place] 715871-12-16 19:34:00 Test Item Value Reference Range Interpretation Comments Neutrophils # (test code = Neutrophils 8.4 1.5-8.1 #) [place] 715871-12-16 19:34:00 Test Item Value Reference Range Interpretation Comments Lymphocytes # (test code = Lymphocytes 2.2 1.0-5.5 #) [facility] HospitalIwdrvsnQBENFTJHEY8929-14-60 19:34:00 Test Item Value Reference Range Interpretation Comments Monocytes # (test code 0.7 See_Comment [Aut omated message] The = Monocytes #) system which generated this result tra nsmitted reference range : <=0.8. The reference r malcolm was not used to int erpret this result as normal/abnormal . [facility] AND [id number] 19:34:00 Test Item Value Reference Range Interpretation Comments UA Color (test code = Jasmine *ABN*(10/28/21 UA Color) 1:34 PM) [facility] AND [id number] 19:34:00 Test Item Value Reference Range Interpretation Comments UA Turbidity (test code Marked *ABN*(10/28/21 = UA Turbidity) 1:34 PM) [facility] AND [id number] 19:34:00 Test Item Value Reference Range Interpretation Comments UA Spec Grav (test code = UA Spec 1.026 1 Grav) [facility] AND [id number] 19:34:00 Test Item Value Reference Range Interpretation Comments UA pH (test code = UA pH) 5.0 1 5.0-8.0 [facility] AND [id number] 19:34:00 Test Item Value Reference Range Interpretation Comments UA Protein (test code = UA Protein) 30 mg/dL [facility] AND [id number] 19:34:00 Test Item Value Reference Range Interpretation Comments UA Glucose (test code = UA Negative mg/dL Glucose) [facility] AND [id number] 19:34:00 Test Item Value Reference Range Interpretation Comments UA Ketones (test code = UA Ketones) 20 mg/dL [facility] AND [id number] 19:34:00 Test Item Value Reference Range Interpretation Comments UA Bili (test code = Negative *NA*(10/28/21 UA Bili) 1:34 PM) [facility] AND [id number] 19:34:00 Test Item Value Reference Range Interpretation Comments UA Blood (test code = Negative (10/28/21 1:34 UA Blood) PM) [facility] [id number] 19:34:00 Test Item Value Reference Range Interpretation Comments UA Urobilinogen (test code = UA 4.0 0.1-1.0 Urobilinogen) [facility] [id number] 19:34:00 Test Item Value Reference Range Interpretation Comments UA Nitrite (test code Negative (10/28/21 1:34 = UA Nitrite) PM) [facility] AND [id number] 19:34:00 Test Item Value Reference Range Interpretation Comments UA Leuk Est (test code Trace *ABN*(10/28/21 = UA Leuk Est) 1:34 PM) [facility] [id number] 19:34:00 Test Item Value Reference Range Interpretation Comments UA Sq Epi (test code = UA Sq Epi) Many /LPF [facility] AND [id number] 19:34:00 Test Item Value Reference Range Interpretation Comments UA WBC (test code = 6 See_Comment [Automa perico message] The UA WBC) system which ge nerated this result transmit perico reference range : <=5. The reference range was not used to interpr et this result as sincere l/abnormal. [facility] [id number] 19:34:00 Test Item Value Reference Range Interpretation Comments UA RBC (test code = 3 See_Comment [Automa perico message] The UA RBC) system which ge nerated this result transmit perico reference range : <=2. The reference range was not used to interpr et this result as sincere l/abnormal. [facility] [id number] 19:34:00 Test Item Value Reference Range Interpretation Comments UA Bacteria (test code = UA Occasional /HPF Bacteria) [facility] AND [id number] 19:34:00 Test Item Value Reference Range Interpretation Comments UA Mucus (test code = UA Mucus) Few /LPF [facility] [id number] 19:34:00 Test Item Value Reference Range Interpretation Comments Glucose Lvl (test code = Glucose Lvl) 85 70-99 [facility] [id number] 19:34:00 Test Item Value Reference Range Interpretation Comments BUN (test code = BUN) 5 7-22 [facility] [id number] 19:34:00 Test Item Value Reference Range Interpretation Comments Creatinine Lvl (test code = Creatinine 0.52 0.50-1.40 Lvl) [place] 928401-12-16 19:34:00 Test Item Value Reference Range Interpretation Comments Sodium Lvl (test code = Sodium Lvl) 134 135-145 [place] 928401-12-16 19:34:00 Test Item Value Reference Range Interpretation Comments Potassium Lvl (test code = Potassium 3.5 3.5-5.1 Lvl) [place] 928401-12-16 19:34:00 Test Item Value Reference Range Interpretation Comments Chloride Lvl (test code = Chloride Lvl) 103 95-109 [place] 928401-12-16 19:34:00 Test Item Value Reference Range Interpretation Comments CO2 (test code = CO2) 25 24-32 [place] [address]-12-16 19:34:00 Test Item Value Reference Range Interpretation Comments Calcium Lvl (test code = Calcium Lvl) 9.1 8.5-10.5 [place] [address]-12-16 19:34:00 Test Item Value Reference Range Interpretation Comments AGAP (test code = AGAP) 9.5 10.0-20.0 [place] [address]-12-16 19:34:00 Test Item Value Reference Range Interpretation Comments eGFR (test code = eGFR) 137 [place] [address]-12-16 19:34:00 Test Item Value Reference Range Interpretation Comments WBC (test code = WBC) 11.4 3.7-10.4 [place] [address]-12-16 19:34:00 Test Item Value Reference Range Interpretation Comments RBC (test code = RBC) 4.46 4.20-5.40 [place] [address]-12-16 19:34:00 Test Item Value Reference Range Interpretation Comments Hgb (test code = Hgb) 13.3 12.0-16.0 [place] [address]-12-16 19:34:00 Test Item Value Reference Range Interpretation Comments Hct (test code = Hct) 39.2 36.0-48.0 [address]12-16 19:34:00 Test Item Value Reference Range Interpretation Comments MCV (test code = MCV) 87.9 80.0-98.0 [place] 715871-12-16 19:34:00 Test Item Value Reference Range Interpretation Comments MCH (test code = MCH) 29.8 pg 27.0-31.0 [facility] HospitalOndeefvCJZYXYCZMP6803-44-75 19:34:00 Test Item Value Reference Range Interpretation Comments MCHC (test code = MCHC) 33.9 32.0-36.0 [facility] HospitalYlwtklvIDAZLBAWYP1692-70-52 19:34:00 Test Item Value Reference Range Interpretation Comments RDW (test code = RDW) 12.6 11.5-14.5 [facility] HospitalTbbcohsSWJKIMIXPL7529-81-07 19:34:00 Test Item Value Reference Range Interpretation Comments Platelet (test code = Platelet) 232 133-450 [facility] HospitalNqtwztpNLLQMKGYEY8386-93-24 19:34:00 Test Item Value Reference Range Interpretation Comments MPV (test code = MPV) 9.1 7.4-10.4 [facility] HospitalDmvvchsFTNKVDSVVV9726-51-27 19:34:00 Test Item Value Reference Range Interpretation Comments Segs (test code = Segs) 73.6 45.0-75.0 [facility]NuncsxpJGFFZIJPRO0223-50-96 19:34:00 Test Item Value Reference Range Interpretation Comments Lymphocytes (test code = Lymphocytes) 19.6 20.0-40.0 [facility] HospitalGydmljzFSYSSUWBET7254-07-78 19:34:00 Test Item Value Reference Range Interpretation Comments Monocytes (test code = Monocytes) 6.0 2.0-12.0 [facility] HospitalAywzrwvNLNENAFPRS4903-81-21 19:34:00 Test Item Value Reference Range Interpretation Comments Eosinophils (test code = 0.4 See_Comment [A utomated message] The Eosinophils) system which ge nerated this result tra nsmitted reference range : <=4.0. The reference r malcolm was not used to int erpret this result as normal/abnormal . [facility] HospitalNybjeauGIJYKAELCJ4720-12-81 19:34:00 Test Item Value Reference Range Interpretation Comments Basophils (test code = 0.4 See_Comment [Aut omated message] The Basophils) system which ge nerated this result tra nsmitted reference range : <=1.0. The reference r malcolm was not used to int erpret this result as normal/abnormal . [facility] HospitalJktyxaiHNBRCCQZMY5533-83-43 19:34:00 Test Item Value Reference Range Interpretation Comments Neutrophils # (test code = Neutrophils 8.4 1.5-8.1 #) [facility] HospitalWimasgfZEDKNZXHPT9241-44-72 19:34:00 Test Item Value Reference Range Interpretation Comments Lymphocytes # (test code = Lymphocytes 2.2 1.0-5.5 #) [facility] HospitalDlimuupREGBJQOEAA0706-48-51 19:34:00 Test Item Value Reference Range Interpretation Comments Monocytes # (test code 0.7 See_Comment [Aut omated message] The = Monocytes #) system which generated this result tra nsmitted reference range : <=0.8. The reference r malcolm was not used to int erpret this result as normal/abnormal . [facility] AND [id number] 19:34:00 Test Item Value Reference Range Interpretation Comments UA Color (test code = Jasmine *ABN*(10/28/21 UA Color) 1:34 PM) [facility] AND [id number] 19:34:00 Test Item Value Reference Range Interpretation Comments UA Turbidity (test code Marked *ABN*(10/28/21 = UA Turbidity) 1:34 PM) [facility] AND [id number] 19:34:00 Test Item Value Reference Range Interpretation Comments UA Spec Grav (test code = UA Spec 1.026 1 Grav) [facility] AND [id number] 19:34:00 Test Item Value Reference Range Interpretation Comments UA pH (test code = UA pH) 5.0 1 5.0-8.0 [facility] AND [id number] 19:34:00 Test Item Value Reference Range Interpretation Comments UA Protein (test code = UA Protein) 30 mg/dL [facility] AND [id number] 19:34:00 Test Item Value Reference Range Interpretation Comments UA Glucose (test code = UA Negative mg/dL Glucose) [facility] AND [id number] 19:34:00 Test Item Value Reference Range Interpretation Comments UA Ketones (test code = UA Ketones) 20 mg/dL [facility] AND [id number] 19:34:00 Test Item Value Reference Range Interpretation Comments UA Bili (test code = Negative *NA*(10/28/21 UA Bili) 1:34 PM) [facility] [id number] 19:34:00 Test Item Value Reference Range Interpretation Comments UA Blood (test code = Negative (10/28/21 1:34 UA Blood) PM) [facility] [id number] 19:34:00 Test Item Value Reference Range Interpretation Comments UA Urobilinogen (test code = UA 4.0 0.1-1.0 Urobilinogen) [facility] [id number] 19:34:00 Test Item Value Reference Range Interpretation Comments UA Nitrite (test code Negative (10/28/21 1:34 = UA Nitrite) PM) [facility] [id number] 19:34:00 Test Item Value Reference Range Interpretation Comments UA Leuk Est (test code Trace *ABN*(10/28/21 = UA Leuk Est) 1:34 PM) [facility] [id number] 19:34:00 Test Item Value Reference Range Interpretation Comments UA Sq Epi (test code = UA Sq Epi) Many /LPF [facility] [id number] 19:34:00 Test Item Value Reference Range Interpretation Comments UA WBC (test code = 6 See_Comment [Automa perico message] The UA WBC) system which ge nerated this result transmit perico reference range : <=5. The reference range was not used to interpr et this result as sincere l/abnormal. [facility] [id number] 19:34:00 Test Item Value Reference Range Interpretation Comments UA RBC (test code = 3 See_Comment [Automa perico message] The UA RBC) system which ge nerated this result transmit perico reference range : <=2. The reference range was not used to interpr et this result as sincere l/abnormal. [facility] [id number] 19:34:00 Test Item Value Reference Range Interpretation Comments UA Bacteria (test code = UA Occasional /HPF Bacteria) [facility] [id number] 19:34:00 Test Item Value Reference Range Interpretation Comments UA Mucus (test code = UA Mucus) Few /LPF [facility] [id number] 19:34:00 Test Item Value Reference Range Interpretation Comments Glucose Lvl (test code = Glucose Lvl) 85 70-99 [facility] [id number] 19:34:00 Test Item Value Reference Range Interpretation Comments BUN (test code = BUN) 5 7-22 [place] 928401-12-16 19:34:00 Test Item Value Reference Range Interpretation Comments Creatinine Lvl (test code = Creatinine 0.52 0.50-1.40 Lvl) [place] 928401-12-16 19:34:00 Test Item Value Reference Range Interpretation Comments Sodium Lvl (test code = Sodium Lvl) 134 135-145 [place] 928401-12-16 19:34:00 Test Item Value Reference Range Interpretation Comments Potassium Lvl (test code = Potassium 3.5 3.5-5.1 Lvl) [place] 928401-12-16 19:34:00 Test Item Value Reference Range Interpretation Comments Chloride Lvl (test code = Chloride Lvl) 103 95-109 [place] 928401-12-16 19:34:00 Test Item Value Reference Range Interpretation Comments CO2 (test code = CO2) 25 24-32 [place] 928401-12-16 19:34:00 Test Item Value Reference Range Interpretation Comments Calcium Lvl (test code = Calcium Lvl) 9.1 8.5-10.5 [place] 928401-12-16 19:34:00 Test Item Value Reference Range Interpretation Comments AGAP (test code = AGAP) 9.5 10.0-20.0 [place] 928401-12-16 19:34:00 Test Item Value Reference Range Interpretation Comments eGFR (test code = eGFR) 137 [place] 715871-12-16 19:34:00 Test Item Value Reference Range Interpretation Comments WBC (test code = WBC) 11.4 3.7-10.4 [place] [address]-12-16 19:34:00 Test Item Value Reference Range Interpretation Comments RBC (test code = RBC) 4.46 4.20-5.40 [place] [address]-12-16 19:34:00 Test Item Value Reference Range Interpretation Comments Hgb (test code = Hgb) 13.3 12.0-16.0 [place] [address]-12-16 19:34:00 Test Item Value Reference Range Interpretation Comments Hct (test code = Hct) 39.2 36.0-48.0 [place] [id number] 19:34:00 Test Item Value Reference Range Interpretation Comments MCV (test code = MCV) 87.9 80.0-98.0 [place] 715871-12-16 19:34:00 Test Item Value Reference Range Interpretation Comments MCH (test code = MCH) 29.8 pg 27.0-31.0 [facility] HospitalLhcmvcoMJWWRWJXKV6764-62-57 19:34:00 Test Item Value Reference Range Interpretation Comments MCHC (test code = MCHC) 33.9 32.0-36.0 [place] 715871-12-16 19:34:00 Test Item Value Reference Range Interpretation Comments RDW (test code = RDW) 12.6 11.5-14.5 [place] 715871-12-16 19:34:00 Test Item Value Reference Range Interpretation Comments Platelet (test code = Platelet) 232 133-450 [facility] HospitalMymzdgtDXXURTZFGY1450-79-01 19:34:00 Test Item Value Reference Range Interpretation Comments MPV (test code = MPV) 9.1 7.4-10.4 [place] 715871-12-16 19:34:00 Test Item Value Reference Range Interpretation Comments Segs (test code = Segs) 73.6 45.0-75.0 [facility] HospitalAxuctmmIUQHDZCNWM8655-94-29 19:34:00 Test Item Value Reference Range Interpretation Comments Lymphocytes (test code = Lymphocytes) 19.6 20.0-40.0 [facility] HospitalDxzczlfJGXMMWLMCT6489-92-19 19:34:00 Test Item Value Reference Range Interpretation Comments Monocytes (test code = Monocytes) 6.0 2.0-12.0 [place] 715871-12-16 19:34:00 Test Item Value Reference Range Interpretation Comments Eosinophils (test code = 0.4 See_Comment [A utomated message] The Eosinophils) system which ge nerated this result tra nsmitted reference range : <=4.0. The reference r malcolm was not used to int erpret this result as normal/abnormal . [place] 715871-12-16 19:34:00 Test Item Value Reference Range Interpretation Comments Basophils (test code = 0.4 See_Comment [Aut omated message] The Basophils) system which ge nerated this result tra nsmitted reference range : <=1.0. The reference r malcolm was not used to int erpret this result as normal/abnormal . [facility] HospitalXfahgkyGYBTWBNVXM6590-00-31 19:34:00 Test Item Value Reference Range Interpretation Comments Neutrophils # (test code = Neutrophils 8.4 1.5-8.1 #) [facility] HospitalBssbgcgDWTNYFIHKS6928-35-33 19:34:00 Test Item Value Reference Range Interpretation Comments Lymphocytes # (test code = Lymphocytes 2.2 1.0-5.5 #) [facility] HospitalJlrycxaHDQWLSFJYN6187-97-50 19:34:00 Test Item Value Reference Range Interpretation Comments Monocytes # (test code 0.7 See_Comment [Aut omated message] The = Monocytes #) system which generated this result tra nsmitted reference range : <=0.8. The reference r malcolm was not used to int erpret this result as normal/abnormal . [facility] AND [id number] 19:34:00 Test Item Value Reference Range Interpretation Comments UA Color (test code = Jasmine *ABN*(10/28/21 UA Color) 1:34 PM) [facility] AND [id number] 19:34:00 Test Item Value Reference Range Interpretation Comments UA Turbidity (test code Marked *ABN*(10/28/21 = UA Turbidity) 1:34 PM) [facility] AND [id number] 19:34:00 Test Item Value Reference Range Interpretation Comments UA Spec Grav (test code = UA Spec 1.026 1 Grav) [facility] AND [id number] 19:34:00 Test Item Value Reference Range Interpretation Comments UA pH (test code = UA pH) 5.0 1 5.0-8.0 [facility] AND [id number] 19:34:00 Test Item Value Reference Range Interpretation Comments UA Protein (test code = UA Protein) 30 mg/dL [facility] AND [id number] 19:34:00 Test Item Value Reference Range Interpretation Comments UA Glucose (test code = UA Negative mg/dL Glucose) [facility] AND [id number] 19:34:00 Test Item Value Reference Range Interpretation Comments UA Ketones (test code = UA Ketones) 20 mg/dL [facility] AND [id number] 19:34:00 Test Item Value Reference Range Interpretation Comments UA Bili (test code = Negative *NA*(10/28/21 UA Bili) 1:34 PM) [facility] [id number] 19:34:00 Test Item Value Reference Range Interpretation Comments UA Blood (test code = Negative (10/28/21 1:34 UA Blood) PM) [facility] [id number] 19:34:00 Test Item Value Reference Range Interpretation Comments UA Urobilinogen (test code = UA 4.0 0.1-1.0 Urobilinogen) [facility] [id number] 19:34:00 Test Item Value Reference Range Interpretation Comments UA Nitrite (test code Negative (10/28/21 1:34 = UA Nitrite) PM) [facility] [id number] 19:34:00 Test Item Value Reference Range Interpretation Comments UA Leuk Est (test code Trace *ABN*(10/28/21 = UA Leuk Est) 1:34 PM) [facility] [id number] 19:34:00 Test Item Value Reference Range Interpretation Comments UA Sq Epi (test code = UA Sq Epi) Many /LPF [facility] [id number] 19:34:00 Test Item Value Reference Range Interpretation Comments UA WBC (test code = 6 See_Comment [Automa perico message] The UA WBC) system which ge nerated this result transmit perico reference range : <=5. The reference range was not used to interpr et this result as sincere l/abnormal. [facility] [id number] 19:34:00 Test Item Value Reference Range Interpretation Comments UA RBC (test code = 3 See_Comment [Automa perico message] The UA RBC) system which ge nerated this result transmit perico reference range : <=2. The reference range was not used to interpr et this result as sincere l/abnormal. [facility] [id number] 19:34:00 Test Item Value Reference Range Interpretation Comments UA Bacteria (test code = UA Occasional /HPF Bacteria) [facility] [id number] 19:34:00 Test Item Value Reference Range Interpretation Comments UA Mucus (test code = UA Mucus) Few /LPF [facility] [id number] 02:57:00 Test Item Value Reference Range Interpretation Comments Glucose Lvl (test code = Glucose Lvl) 87 70-99 [place] 928401-07-06 02:57:00 Test Item Value Reference Range Interpretation Comments BUN (test code = BUN) 10 7-22 [place] 928401-07-06 02:57:00 Test Item Value Reference Range Interpretation Comments Creatinine Lvl (test code = Creatinine 0.65 0.50-1.40 Lvl) [place] 928401-07-06 02:57:00 Test Item Value Reference Range Interpretation Comments Sodium Lvl (test code = Sodium Lvl) 143 135-145 [place] 928401-07-06 02:57:00 Test Item Value Reference Range Interpretation Comments Potassium Lvl (test code = Potassium 3.5 3.5-5.1 Lvl) [place] 928401-07-06 02:57:00 Test Item Value Reference Range Interpretation Comments Chloride Lvl (test code = Chloride Lvl) 106 95-109 [place] 928401-07-06 02:57:00 Test Item Value Reference Range Interpretation Comments CO2 (test code = CO2) 25 24-32 [place] 928401-07-06 02:57:00 Test Item Value Reference Range Interpretation Comments Calcium Lvl (test code = Calcium Lvl) 8.8 8.5-10.5 [place] 928401-07-06 02:57:00 Test Item Value Reference Range Interpretation Comments Total Protein (test code = Total 7.7 6.4-8.4 Protein) [place] 928401-07-06 02:57:00 Test Item Value Reference Range Interpretation Comments Albumin Lvl (test code = Albumin Lvl) 3.6 3.5-5.0 [place] 928401-07-06 02:57:00 Test Item Value Reference Range Interpretation Comments ALT (test code = ALT) 30 <=65 [place] 928401-07-06 02:57:00 Test Item Value Reference Range Interpretation Comments AST (test code = AST) 26 <=37 [place] 928401-07-06 02:57:00 Test Item Value Reference Range Interpretation Comments Alk Phos (test code = Alk Phos) 88 39-136 [place] 928401-07-06 02:57:00 Test Item Value Reference Range Interpretation Comments Bili Total (test code = Bili Total) 0.6 0.2-1.3 [place] 928401-07-06 02:57:00 Test Item Value Reference Range Interpretation Comments AGAP (test code = AGAP) 15.5 10.0-20.0 [place] 928401-07-06 02:57:00 Test Item Value Reference Range Interpretation Comments B/C Ratio (test code = B/C Ratio) 15 1 6-25 [place] 928401-07-06 02:57:00 Test Item Value Reference Range Interpretation Comments Globulin (test code = Globulin) 4.1 2.7-4.2 [place] 928401-07-06 02:57:00 Test Item Value Reference Range Interpretation Comments A/G Ratio (test code = A/G Ratio) 0.9 1 0.7-1.6 [place] 928401-07-06 02:57:00 Test Item Value Reference Range Interpretation Comments eGFR (test code = eGFR) 127 [facility]2021-07-06 02:57:00 Test Item Value Reference Range Interpretation Comments Lipase Lvl (test code = Lipase Lvl) 67 73-393 [place] 25521021-07-06 02:57:00 Test Item Value Reference Range Interpretation Comments S Preg (test code = S Negative (05/17/21 9:57 Preg) PM) [facility] HospitalZpfojilDZIMMKLAOU0385-49-68 02:57:00 Test Item Value Reference Range Interpretation Comments WBC (test code = WBC) 7.8 3.7-10.4 [place] 715871-07-06 02:57:00 Test Item Value Reference Range Interpretation Comments RBC (test code = RBC) 4.63 4.20-5.40 [place] 715871-07-06 02:57:00 Test Item Value Reference Range Interpretation Comments Hgb (test code = Hgb) 14.0 12.0-16.0 [place] 715871-07-06 02:57:00 Test Item Value Reference Range Interpretation Comments Hct (test code = Hct) 40.6 36.0-48.0 [place] 715871-07-06 02:57:00 Test Item Value Reference Range Interpretation Comments MCV (test code = MCV) 87.7 80.0-98.0 [facility] HospitalUsawpuoJHJDJTQSNP7348-74-11 02:57:00 Test Item Value Reference Range Interpretation Comments MCH (test code = MCH) 30.3 pg 27.0-31.0 [facility] HospitalXdxrpzgJHVOVEONCU9319-35-93 02:57:00 Test Item Value Reference Range Interpretation Comments MCHC (test code = MCHC) 34.5 32.0-36.0 [facility] HospitalHeuvrflGZLQGFBPVN6541-07-72 02:57:00 Test Item Value Reference Range Interpretation Comments RDW (test code = RDW) 12.5 11.5-14.5 [facility] HospitalYrntgnpQXJKQVBGKZ4256-42-52 02:57:00 Test Item Value Reference Range Interpretation Comments Platelet (test code = Platelet) 202 133-450 [facility] HospitalVxxsgxsJKLCFCEADX7384-78-49 02:57:00 Test Item Value Reference Range Interpretation Comments MPV (test code = MPV) 8.7 7.4-10.4 [facility] HospitalYqceixgSAOEAKTTZJ3675-51-70 02:57:00 Test Item Value Reference Range Interpretation Comments Segs (test code = Segs) 61.6 45.0-75.0 [facility] HospitalEeywzewACFOCFNDCR6432-09-73 02:57:00 Test Item Value Reference Range Interpretation Comments Lymphocytes (test code = Lymphocytes) 29.5 20.0-40.0 [facility] HospitalAqyvdxqMZHKLTTCWT1033-24-75 02:57:00 Test Item Value Reference Range Interpretation Comments Monocytes (test code = Monocytes) 8.0 2.0-12.0 [facility] HospitalDonkznuYDSFPQYDPG6294-74-38 02:57:00 Test Item Value Reference Range Interpretation Comments Eosinophils (test code = Eosinophils) 0.5 <=4.0 [facility] HospitalBammnsuEHAKTARSXY7416-75-26 02:57:00 Test Item Value Reference Range Interpretation Comments Basophils (test code = Basophils) 0.5 <=1.0 [place] 715871-07-06 02:57:00 Test Item Value Reference Range Interpretation Comments Neutrophils # (test code = Neutrophils 4.8 1.5-8.1 #) [facility] HospitalMboalzoEFEICYEYOL8537-97-43 02:57:00 Test Item Value Reference Range Interpretation Comments Lymphocytes # (test code = Lymphocytes 2.3 1.0-5.5 #) [facility]XnsuhxkIADDFPKQBI6969-65-60 02:57:00 Test Item Value Reference Range Interpretation Comments Monocytes # (test code = Monocytes #) 0.6 <=0.8 [facility] AND [id number] 02:57:00 Test Item Value Reference Range Interpretation Comments UA Color (test code = Yellow *NA*(05/17/21 9:57 UA Color) PM) [facility] AND [id number] 02:57:00 Test Item Value Reference Range Interpretation Comments UA Turbidity (test code Cloudy *ABN*(05/17/21 = UA Turbidity) 9:57 PM) [facility] AND [id number] 02:57:00 Test Item Value Reference Range Interpretation Comments UA Spec Grav (test code = UA Spec 1.025 1 Grav) [facility] AND [id number] 02:57:00 Test Item Value Reference Range Interpretation Comments UA pH (test code = UA pH) 6.5 1 5.0-8.0 [facility] AND [id number] 02:57:00 Test Item Value Reference Range Interpretation Comments UA Protein (test code Negative (05/17/21 9:57 = UA Protein) PM) [facility] AND [id number] 02:57:00 Test Item Value Reference Range Interpretation Comments UA Glucose (test code Negative (05/17/21 9:57 = UA Glucose) PM) [facility] AND [id number] 02:57:00 Test Item Value Reference Range Interpretation Comments UA Ketones (test code = UA Ketones) 40 mg/dL [facility] AND [id number] 02:57:00 Test Item Value Reference Range Interpretation Comments UA Bili (test code = Negative *NA*(05/17/21 UA Bili) 9:57 PM) [facility] AND [id number] 02:57:00 Test Item Value Reference Range Interpretation Comments UA Blood (test code = Moderate *ABN*(05/17/21 UA Blood) 9:57 PM) [facility] AND [id number] 02:57:00 Test Item Value Reference Range Interpretation Comments UA Urobilinogen (test code = UA 2.0 0.1-1.0 Urobilinogen) [facility] AND [id number] 02:57:00 Test Item Value Reference Range Interpretation Comments UA Nitrite (test code Positive *ABN*(05/17/21 = UA Nitrite) 9:57 PM) [facility] AND [id number] 02:57:00 Test Item Value Reference Range Interpretation Comments UA Leuk Est (test code Trace *ABN*(05/17/21 9:57 = UA Leuk Est) PM) [facility] AND [id number] 02:57:00 Test Item Value Reference Range Interpretation Comments UA Sq Epi (test code = UA Sq Epi) Many /LPF [facility] AND [id number] 02:57:00 Test Item Value Reference Range Interpretation Comments UA WBC (test code = UA WBC) 11-20 /HPF [facility] AND [id number] 02:57:00 Test Item Value Reference Range Interpretation Comments UA RBC (test code = UA RBC) 6-10 /HPF [facility] AND [id number] 02:57:00 Test Item Value Reference Range Interpretation Comments UA Bacteria (test code = UA Many /HPF Bacteria) [facility] AND [id number] 02:57:00 Test Item Value Reference Range Interpretation Comments UA Mucus (test code = UA Mucus) Few /LPF [facility] AND [id number] 02:57:00 Test Item Value Reference Range Interpretation Comments UA Renal Epi (test code = UA Renal 3-5 /LPF Epi) [facility] [id number] 02:57:00 Test Item Value Reference Range Interpretation Comments Culture: Urine (test >100,000 CFU/mL code = Culture: Escherichia coli , Urine) Sensitivity Pending 10,000 - 50,000 CFU/mL [facility] [id number] 02:57:00 Test Item Value Reference Range Interpretation Comments Glucose Lvl (test code = Glucose Lvl) 87 70-99 [facility]2021-07-06 02:57:00 Test Item Value Reference Range Interpretation Comments BUN (test code = BUN) 10 7-22 [facility]2021-07-06 02:57:00 Test Item Value Reference Range Interpretation Comments Creatinine Lvl (test code = Creatinine 0.65 0.50-1.40 Lvl) [place] 928401-07-06 02:57:00 Test Item Value Reference Range Interpretation Comments Sodium Lvl (test code = Sodium Lvl) 143 135-145 [place] 928401-07-06 02:57:00 Test Item Value Reference Range Interpretation Comments Potassium Lvl (test code = Potassium 3.5 3.5-5.1 Lvl) [place] 928401-07-06 02:57:00 Test Item Value Reference Range Interpretation Comments Chloride Lvl (test code = Chloride Lvl) 106 95-109 [place] 928401-07-06 02:57:00 Test Item Value Reference Range Interpretation Comments CO2 (test code = CO2) 25 24-32 [place] 928401-07-06 02:57:00 Test Item Value Reference Range Interpretation Comments Calcium Lvl (test code = Calcium Lvl) 8.8 8.5-10.5 [place] 928401-07-06 02:57:00 Test Item Value Reference Range Interpretation Comments Total Protein (test code = Total 7.7 6.4-8.4 Protein) [place] 928401-07-06 02:57:00 Test Item Value Reference Range Interpretation Comments Albumin Lvl (test code = Albumin Lvl) 3.6 3.5-5.0 [place] 928401-07-06 02:57:00 Test Item Value Reference Range Interpretation Comments ALT (test code = ALT) 30 See_Comment [Auto mated message] The system which nerated this result transmit perico reference range : <=65. The reference range was not used to interpr et this result as sincere l/abnormal. [place] 928401-07-06 02:57:00 Test Item Value Reference Range Interpretation Comments AST (test code = AST) 26 See_Comment [Auto mated message] The system which Lellan nerated this result transmit perico reference range : <=37. The reference range was not used to interpr et this result as sincere l/abnormal. [place] 928401-07-06 02:57:00 Test Item Value Reference Range Interpretation Comments Alk Phos (test code = Alk Phos) 88 39-136 [place] 928401-07-06 02:57:00 Test Item Value Reference Range Interpretation Comments Bili Total (test code = Bili Total) 0.6 0.2-1.3 [place] 928401-07-06 02:57:00 Test Item Value Reference Range Interpretation Comments AGAP (test code = AGAP) 15.5 10.0-20.0 [place] 928401-07-06 02:57:00 Test Item Value Reference Range Interpretation Comments B/C Ratio (test code = B/C Ratio) 15 1 6-25 [place] 928401-07-06 02:57:00 Test Item Value Reference Range Interpretation Comments Globulin (test code = Globulin) 4.1 2.7-4.2 [place] 928401-07-06 02:57:00 Test Item Value Reference Range Interpretation Comments A/G Ratio (test code = A/G Ratio) 0.9 1 0.7-1.6 [place] 928401-07-06 02:57:00 Test Item Value Reference Range Interpretation Comments eGFR (test code = eGFR) 127 [facility]2021-07-06 02:57:00 Test Item Value Reference Range Interpretation Comments Lipase Lvl (test code = Lipase Lvl) 67 73-393 [facility]5204-35-93 02:57:00 Test Item Value Reference Range Interpretation Comments S Preg (test code = S Negative (05/17/21 9:57 Preg) PM) [place] 715871-07-06 02:57:00 Test Item Value Reference Range Interpretation Comments WBC (test code = WBC) 7.8 3.7-10.4 [place] 715871-07-06 02:57:00 Test Item Value Reference Range Interpretation Comments RBC (test code = RBC) 4.63 4.20-5.40 [place] [address]-07-06 02:57:00 Test Item Value Reference Range Interpretation Comments Hgb (test code = Hgb) 14.0 12.0-16.0 [place] [address]-07-06 02:57:00 Test Item Value Reference Range Interpretation Comments Hct (test code = Hct) 40.6 36.0-48.0 [place] 715871-07-06 02:57:00 Test Item Value Reference Range Interpretation Comments MCV (test code = MCV) 87.7 80.0-98.0 [place] 715871-07-06 02:57:00 Test Item Value Reference Range Interpretation Comments MCH (test code = MCH) 30.3 pg 27.0-31.0 [place] 715871-07-06 02:57:00 Test Item Value Reference Range Interpretation Comments MCHC (test code = MCHC) 34.5 32.0-36.0 [place] 715871-07-06 02:57:00 Test Item Value Reference Range Interpretation Comments RDW (test code = RDW) 12.5 11.5-14.5 [place] 715871-07-06 02:57:00 Test Item Value Reference Range Interpretation Comments Platelet (test code = Platelet) 202 133-450 [place] 715871-07-06 02:57:00 Test Item Value Reference Range Interpretation Comments MPV (test code = MPV) 8.7 7.4-10.4 [place] 715871-07-06 02:57:00 Test Item Value Reference Range Interpretation Comments Segs (test code = Segs) 61.6 45.0-75.0 [place] 715871-07-06 02:57:00 Test Item Value Reference Range Interpretation Comments Lymphocytes (test code = Lymphocytes) 29.5 20.0-40.0 [place] 715871-07-06 02:57:00 Test Item Value Reference Range Interpretation Comments Monocytes (test code = Monocytes) 8.0 2.0-12.0 [place] 715871-07-06 02:57:00 Test Item Value Reference Range Interpretation Comments Eosinophils (test code = 0.5 See_Comment [A utomated message] The Eosinophils) system which ge nerated this result tra nsmitted reference range : <=4.0. The reference r malcolm was not used to int erpret this result as normal/abnormal . [place] 715871-07-06 02:57:00 Test Item Value Reference Range Interpretation Comments Basophils (test code = 0.5 See_Comment [Aut omated message] The Basophils) system which ge nerated this result tra nsmitted reference range : <=1.0. The reference r malcolm was not used to int erpret this result as normal/abnormal . [facility]CL[facility]RD[facility]32[facility] 02:57:00 Test Item Value Reference Range Interpretation Comments Neutrophils # (test code = Neutrophils 4.8 1.5-8.1 #) [facility] HospitalRwpueuaCACHCYUCZI2114-63-50 02:57:00 Test Item Value Reference Range Interpretation Comments Lymphocytes # (test code = Lymphocytes 2.3 1.0-5.5 #) [facility] HospitalTmkpgkpWHAANIHNJI8266-99-37 02:57:00 Test Item Value Reference Range Interpretation Comments Monocytes # (test code 0.6 See_Comment [Aut omated message] The = Monocytes #) system which generated this result tra nsmitted reference range : <=0.8. The reference r malcolm was not used to int erpret this result as normal/abnormal . [facility] AND [id number] 02:57:00 Test Item Value Reference Range Interpretation Comments UA Color (test code = Yellow *NA*(05/17/21 9:57 UA Color) PM) [facility] AND [id number] 02:57:00 Test Item Value Reference Range Interpretation Comments UA Turbidity (test code Cloudy *ABN*(05/17/21 = UA Turbidity) 9:57 PM) [facility] AND [id number] 02:57:00 Test Item Value Reference Range Interpretation Comments UA Spec Grav (test code = UA Spec 1.025 1 Grav) [facility] AND [id number] 02:57:00 Test Item Value Reference Range Interpretation Comments UA pH (test code = UA pH) 6.5 1 5.0-8.0 [facility] AND [id number] 02:57:00 Test Item Value Reference Range Interpretation Comments UA Protein (test code Negative (05/17/21 9:57 = UA Protein) PM) [facility] AND [id number] 02:57:00 Test Item Value Reference Range Interpretation Comments UA Glucose (test code Negative (05/17/21 9:57 = UA Glucose) PM) [facility] AND [id number] 02:57:00 Test Item Value Reference Range Interpretation Comments UA Ketones (test code = UA Ketones) 40 mg/dL [facility] AND [id number] 02:57:00 Test Item Value Reference Range Interpretation Comments UA Bili (test code = Negative *NA*(05/17/21 UA Bili) 9:57 PM) [facility] AND [id number] 02:57:00 Test Item Value Reference Range Interpretation Comments UA Blood (test code = Moderate *ABN*(05/17/21 UA Blood) 9:57 PM) [facility] AND [id number] 02:57:00 Test Item Value Reference Range Interpretation Comments UA Urobilinogen (test code = UA 2.0 0.1-1.0 Urobilinogen) [facility] AND [id number] 02:57:00 Test Item Value Reference Range Interpretation Comments UA Nitrite (test code Positive *ABN*(05/17/21 = UA Nitrite) 9:57 PM) [facility] AND [id number] 02:57:00 Test Item Value Reference Range Interpretation Comments UA Leuk Est (test code Trace *ABN*(05/17/21 9:57 = UA Leuk Est) PM) [facility] AND [id number] 02:57:00 Test Item Value Reference Range Interpretation Comments UA Sq Epi (test code = UA Sq Epi) Many /LPF [facility] AND [id number] 02:57:00 Test Item Value Reference Range Interpretation Comments UA WBC (test code = UA WBC) 11-20 /HPF [facility] AND [id number] 02:57:00 Test Item Value Reference Range Interpretation Comments UA RBC (test code = UA RBC) 6-10 /HPF [facility] AND [id number] 02:57:00 Test Item Value Reference Range Interpretation Comments UA Bacteria (test code = UA Many /HPF Bacteria) [facility] AND [id number] 02:57:00 Test Item Value Reference Range Interpretation Comments UA Mucus (test code = UA Mucus) Few /LPF [facility] AND [id number] 02:57:00 Test Item Value Reference Range Interpretation Comments UA Renal Epi (test code = UA Renal 3-5 /LPF Epi) [facility] [id number] 02:57:00 Test Item Value Reference Range Interpretation Comments Culture: Urine (test >100,000 CFU/mL code = Culture: Escherichia coli , Urine) Sensitivity Pending 10,000 - 50,000 CFU/mL Skin Amelia [place] 928401-07-06 02:57:00 Test Item Value Reference Range Interpretation Comments Glucose Lvl (test code = Glucose Lvl) 87 70-99 [place] 928401-07-06 02:57:00 Test Item Value Reference Range Interpretation Comments BUN (test code = BUN) 10 7-22 [place] 928401-07-06 02:57:00 Test Item Value Reference Range Interpretation Comments Creatinine Lvl (test code = Creatinine 0.65 0.50-1.40 Lvl) [place] 928401-07-06 02:57:00 Test Item Value Reference Range Interpretation Comments Sodium Lvl (test code = Sodium Lvl) 143 135-145 [place] 928401-07-06 02:57:00 Test Item Value Reference Range Interpretation Comments Potassium Lvl (test code = Potassium 3.5 3.5-5.1 Lvl) [place] 928401-07-06 02:57:00 Test Item Value Reference Range Interpretation Comments Chloride Lvl (test code = Chloride Lvl) 106 95-109 [place] 928401-07-06 02:57:00 Test Item Value Reference Range Interpretation Comments CO2 (test code = CO2) 25 24-32 [place] 928401-07-06 02:57:00 Test Item Value Reference Range Interpretation Comments Calcium Lvl (test code = Calcium Lvl) 8.8 8.5-10.5 [place] 928401-07-06 02:57:00 Test Item Value Reference Range Interpretation Comments Total Protein (test code = Total 7.7 6.4-8.4 Protein) [place] 928401-07-06 02:57:00 Test Item Value Reference Range Interpretation Comments Albumin Lvl (test code = Albumin Lvl) 3.6 3.5-5.0 [place] 928401-07-06 02:57:00 Test Item Value Reference Range Interpretation Comments ALT (test code = ALT) 30 See_Comment [Auto mated message] The system which ge nerated this result transmit perico reference range : <=65. The reference range was not used to interpr et this result as sincere l/abnormal. [place] 928401-07-06 02:57:00 Test Item Value Reference Range Interpretation Comments AST (test code = AST) 26 See_Comment [Auto mated message] The system which ge nerated this result transmit perico reference range : <=37. The reference range was not used to interpr et this result as sincere l/abnormal. [place] 928401-07-06 02:57:00 Test Item Value Reference Range Interpretation Comments Alk Phos (test code = Alk Phos) 88 39-136 [place] 928401-07-06 02:57:00 Test Item Value Reference Range Interpretation Comments Bili Total (test code = Bili Total) 0.6 0.2-1.3 [place] 928401-07-06 02:57:00 Test Item Value Reference Range Interpretation Comments AGAP (test code = AGAP) 15.5 10.0-20.0 [facility]2021-07-06 02:57:00 Test Item Value Reference Range Interpretation Comments B/C Ratio (test code = B/C Ratio) 15 1 6-25 [place] 928401-07-06 02:57:00 Test Item Value Reference Range Interpretation Comments Globulin (test code = Globulin) 4.1 2.7-4.2 [facility]2021-07-06 02:57:00 Test Item Value Reference Range Interpretation Comments A/G Ratio (test code = A/G Ratio) 0.9 1 0.7-1.6 [place] 928401-07-06 02:57:00 Test Item Value Reference Range Interpretation Comments eGFR (test code = eGFR) 127 [facility]GetSn[facility] [id number] 02:57:00 Test Item Value Reference Range Interpretation Comments Lipase Lvl (test code = Lipase Lvl) 67 73-393 [facility]DqoszieBYFVVYMYYHCBA6875-17-63 02:57:00 Test Item Value Reference Range Interpretation Comments S Preg (test code = S Negative (05/17/21 9:57 Preg) PM) [facility] HospitalFnrvlkaHRYPGTKNTA7302-34-95 02:57:00 Test Item Value Reference Range Interpretation Comments WBC (test code = WBC) 7.8 3.7-10.4 [facility] HospitalFqbkoxnOGHYQTKPTF8810-89-71 02:57:00 Test Item Value Reference Range Interpretation Comments RBC (test code = RBC) 4.63 4.20-5.40 [facility] HospitalLnnlywlWDPQSLAMEW8606-78-20 02:57:00 Test Item Value Reference Range Interpretation Comments Hgb (test code = Hgb) 14.0 12.0-16.0 [place] 715871-07-06 02:57:00 Test Item Value Reference Range Interpretation Comments Hct (test code = Hct) 40.6 36.0-48.0 [place] 715871-07-06 02:57:00 Test Item Value Reference Range Interpretation Comments MCV (test code = MCV) 87.7 80.0-98.0 [place] 715871-07-06 02:57:00 Test Item Value Reference Range Interpretation Comments MCH (test code = MCH) 30.3 pg 27.0-31.0 [facility] HospitalPllfbzePBBDWQHILH2685-99-13 02:57:00 Test Item Value Reference Range Interpretation Comments MCHC (test code = MCHC) 34.5 32.0-36.0 [place] 715871-07-06 02:57:00 Test Item Value Reference Range Interpretation Comments RDW (test code = RDW) 12.5 11.5-14.5 [place] 715871-07-06 02:57:00 Test Item Value Reference Range Interpretation Comments Platelet (test code = Platelet) 202 133-450 [facility] HospitalEolqtqaIDNAXADERC8098-20-46 02:57:00 Test Item Value Reference Range Interpretation Comments MPV (test code = MPV) 8.7 7.4-10.4 [place] 715871-07-06 02:57:00 Test Item Value Reference Range Interpretation Comments Segs (test code = Segs) 61.6 45.0-75.0 [place] 715871-07-06 02:57:00 Test Item Value Reference Range Interpretation Comments Lymphocytes (test code = Lymphocytes) 29.5 20.0-40.0 [place] 715871-07-06 02:57:00 Test Item Value Reference Range Interpretation Comments Monocytes (test code = Monocytes) 8.0 2.0-12.0 [place] 715871-07-06 02:57:00 Test Item Value Reference Range Interpretation Comments Eosinophils (test code = 0.5 See_Comment [A utomated message] The Eosinophils) system which ge nerated this result tra nsmitted reference range : <=4.0. The reference r malcolm was not used to int erpret this result as normal/abnormal . [facility] H[id number] 02:57:00 Test Item Value Reference Range Interpretation Comments Basophils (test code = 0.5 See_Comment [Aut omated message] The Basophils) system which ge nerated this result tra nsmitted reference range : <=1.0. The reference r malcolm was not used to int erpret this result as normal/abnormal . [facility] HospitalRjzevdbVLBYMAUFCU0254-29-40 02:57:00 Test Item Value Reference Range Interpretation Comments Neutrophils # (test code = Neutrophils 4.8 1.5-8.1 #) [facility] HospitalJukvfoaJIDAAJRBPG6654-54-20 02:57:00 Test Item Value Reference Range Interpretation Comments Lymphocytes # (test code = Lymphocytes 2.3 1.0-5.5 #) [facility] HospitalKeskhufHHQTKIXUEX6359-30-05 02:57:00 Test Item Value Reference Range Interpretation Comments Monocytes # (test code 0.6 See_Comment [Aut omated message] The = Monocytes #) system which generated this result tra nsmitted reference range : <=0.8. The reference r malcolm was not used to int erpret this result as normal/abnormal . [facility] AND [id number] 02:57:00 Test Item Value Reference Range Interpretation Comments UA Color (test code = Yellow *NA*(05/17/21 9:57 UA Color) PM) [facility] AND [id number] 02:57:00 Test Item Value Reference Range Interpretation Comments UA Turbidity (test code Cloudy *ABN*(05/17/21 = UA Turbidity) 9:57 PM) [facility] AND [id number] 02:57:00 Test Item Value Reference Range Interpretation Comments UA Spec Grav (test code = UA Spec 1.025 1 Grav) [facility] AND [id number] 02:57:00 Test Item Value Reference Range Interpretation Comments UA pH (test code = UA pH) 6.5 1 5.0-8.0 [facility] AND [id number] 02:57:00 Test Item Value Reference Range Interpretation Comments UA Protein (test code Negative (05/17/21 9:57 = UA Protein) PM) [facility] AND [id number] 02:57:00 Test Item Value Reference Range Interpretation Comments UA Glucose (test code Negative (05/17/21 9:57 = UA Glucose) PM) [facility] AND [id number] 02:57:00 Test Item Value Reference Range Interpretation Comments UA Ketones (test code = UA Ketones) 40 mg/dL [facility] AND [id number] 02:57:00 Test Item Value Reference Range Interpretation Comments UA Bili (test code = Negative *NA*(05/17/21 UA Bili) 9:57 PM) [facility] AND [id number] 02:57:00 Test Item Value Reference Range Interpretation Comments UA Blood (test code = Moderate *ABN*(05/17/21 UA Blood) 9:57 PM) [facility] AND [id number] 02:57:00 Test Item Value Reference Range Interpretation Comments UA Urobilinogen (test code = UA 2.0 0.1-1.0 Urobilinogen) [facility] AND [id number] 02:57:00 Test Item Value Reference Range Interpretation Comments UA Nitrite (test code Positive *ABN*(05/17/21 = UA Nitrite) 9:57 PM) [facility] AND [id number] 02:57:00 Test Item Value Reference Range Interpretation Comments UA Leuk Est (test code Trace *ABN*(05/17/21 9:57 = UA Leuk Est) PM) [facility] AND [id number] 02:57:00 Test Item Value Reference Range Interpretation Comments UA Sq Epi (test code = UA Sq Epi) Many /LPF [facility] AND [id number] 02:57:00 Test Item Value Reference Range Interpretation Comments UA WBC (test code = UA WBC) 11-20 /HPF [facility] AND [id number] 02:57:00 Test Item Value Reference Range Interpretation Comments UA RBC (test code = UA RBC) 6-10 /HPF [facility] AND [id number] 02:57:00 Test Item Value Reference Range Interpretation Comments UA Bacteria (test code = UA Many /HPF Bacteria) [facility] AND [id number] 02:57:00 Test Item Value Reference Range Interpretation Comments UA Mucus (test code = UA Mucus) Few /LPF [facility] AND [id number] 02:57:00 Test Item Value Reference Range Interpretation Comments UA Renal Epi (test code = UA Renal 3-5 /LPF Epi) [facility] [id number] 02:57:00 Test Item Value Reference Range Interpretation Comments Culture: Urine (test >100,000 CFU/mL code = Culture: Escherichia coli , Urine) Sensitivity Pending 10,000 - 50,000 CFU/mL Skin Amelia [facility]2021-07-06 02:57:00 Test Item Value Reference Range Interpretation Comments Glucose Lvl (test code = Glucose Lvl) 87 70-99 [facility]2021-07-06 02:57:00 Test Item Value Reference Range Interpretation Comments BUN (test code = BUN) 10 7-22 [facility]2021-07-06 02:57:00 Test Item Value Reference Range Interpretation Comments Creatinine Lvl (test code = Creatinine 0.65 0.50-1.40 Lvl) [facility]2021-07-06 02:57:00 Test Item Value Reference Range Interpretation Comments Sodium Lvl (test code = Sodium Lvl) 143 135-145 [facility]2021-07-06 02:57:00 Test Item Value Reference Range Interpretation Comments Potassium Lvl (test code = Potassium 3.5 3.5-5.1 Lvl) [facility]2021-07-06 02:57:00 Test Item Value Reference Range Interpretation Comments Chloride Lvl (test code = Chloride Lvl) 106 95-109 [facility]2021-07-06 02:57:00 Test Item Value Reference Range Interpretation Comments CO2 (test code = CO2) 25 24-32 [facility]2021-07-06 02:57:00 Test Item Value Reference Range Interpretation Comments Calcium Lvl (test code = Calcium Lvl) 8.8 8.5-10.5 [place] 928401-07-06 02:57:00 Test Item Value Reference Range Interpretation Comments Total Protein (test code = Total 7.7 6.4-8.4 Protein) [facility]2021-07-06 02:57:00 Test Item Value Reference Range Interpretation Comments Albumin Lvl (test code = Albumin Lvl) 3.6 3.5-5.0 [facility] [id number] 02:57:00 Test Item Value Reference Range Interpretation Comments ALT (test code = ALT) 30 See_Comment [Auto mated message] The system which ge nerated this result transmit perico reference range : <=65. The reference range was not used to interpr et this result as sincere l/abnormal. [facility] [employer] [id number] 02:57:00 Test Item Value Reference Range Interpretation Comments AST (test code = AST) 26 See_Comment [Auto mated message] The system which ge nerated this result transmit perico reference range : <=37. The reference range was not used to interpr et this result as sincere l/abnormal. [facility] [employer] [id number] 02:57:00 Test Item Value Reference Range Interpretation Comments Alk Phos (test code = Alk Phos) 88 39-136 [facility] [id number] 02:57:00 Test Item Value Reference Range Interpretation Comments Bili Total (test code = Bili Total) 0.6 0.2-1.3 [facility] [employer] [id number] 02:57:00 Test Item Value Reference Range Interpretation Comments AGAP (test code = AGAP) 15.5 10.0-20.0 [facility] [employer] [id number] 02:57:00 Test Item Value Reference Range Interpretation Comments B/C Ratio (test code = B/C Ratio) 15 1 6-25 [facility] [id number] 02:57:00 Test Item Value Reference Range Interpretation Comments Globulin (test code = Globulin) 4.1 2.7-4.2 [facility] [employer] [id number] 02:57:00 Test Item Value Reference Range Interpretation Comments A/G Ratio (test code = A/G Ratio) 0.9 1 0.7-1.6 [facility] [id number] 02:57:00 Test Item Value Reference Range Interpretation Comments eGFR (test code = eGFR) 127 [facility] [employer] [id number] 02:57:00 Test Item Value Reference Range Interpretation Comments Lipase Lvl (test code = Lipase Lvl) 67 73-393 [facility]BxdekrvVHZLWWBYZLEAW5616-73-03 02:57:00 Test Item Value Reference Range Interpretation Comments S Preg (test code = S Negative (05/17/21 9:57 Preg) PM) [facility] HospitalRcndkloAIWVCOLZKA9511-21-82 02:57:00 Test Item Value Reference Range Interpretation Comments WBC (test code = WBC) 7.8 3.7-10.4 [facility] HospitalCsfwkwkKIXZJFCCYE0981-86-88 02:57:00 Test Item Value Reference Range Interpretation Comments RBC (test code = RBC) 4.63 4.20-5.40 [facility] HospitalLceryeyFWJIZWVGEP7764-87-81 02:57:00 Test Item Value Reference Range Interpretation Comments Hgb (test code = Hgb) 14.0 12.0-16.0 [facility] HospitalMymlrvfEADUEIGWLN7359-07-73 02:57:00 Test Item Value Reference Range Interpretation Comments Hct (test code = Hct) 40.6 36.0-48.0 [facility] HospitalDmdrsfrXXNGRZFOTY6834-55-33 02:57:00 Test Item Value Reference Range Interpretation Comments MCV (test code = MCV) 87.7 80.0-98.0 [facility] HospitalWqxsizlCHTLDYRBKL5230-61-34 02:57:00 Test Item Value Reference Range Interpretation Comments MCH (test code = MCH) 30.3 pg 27.0-31.0 [facility] HospitalFiqonzpLGPFNROLKW5555-73-09 02:57:00 Test Item Value Reference Range Interpretation Comments MCHC (test code = MCHC) 34.5 32.0-36.0 [facility] HospitalKycfaghHFRFNGXRUJ6401-49-62 02:57:00 Test Item Value Reference Range Interpretation Comments RDW (test code = RDW) 12.5 11.5-14.5 [facility] HospitalDktsmumJKNXDHSZTA5984-84-32 02:57:00 Test Item Value Reference Range Interpretation Comments Platelet (test code = Platelet) 202 669-450 [facility] HospitalDkjwnzgPPVBDEIZSN1710-81-30 02:57:00 Test Item Value Reference Range Interpretation Comments MPV (test code = MPV) 8.7 7.4-10.4 [facility] HospitalAmlnlopDPWXAGPMND0877-60-66 02:57:00 Test Item Value Reference Range Interpretation Comments Segs (test code = Segs) 61.6 45.0-75.0 [place] 715871-07-06 02:57:00 Test Item Value Reference Range Interpretation Comments Lymphocytes (test code = Lymphocytes) 29.5 20.0-40.0 [place] 715871-07-06 02:57:00 Test Item Value Reference Range Interpretation Comments Monocytes (test code = Monocytes) 8.0 2.0-12.0 [facility] HospitalDykboghJPZWIKBYMS3177-70-49 02:57:00 Test Item Value Reference Range Interpretation Comments Eosinophils (test code = 0.5 See_Comment [A utomated message] The Eosinophils) system which ge nerated this result tra nsmitted reference range : <=4.0. The reference r malcolm was not used to int erpret this result as normal/abnormal . [place] 715871-07-06 02:57:00 Test Item Value Reference Range Interpretation Comments Basophils (test code = 0.5 See_Comment [Aut omated message] The Basophils) system which ge nerated this result tra nsmitted reference range : <=1.0. The reference r malcolm was not used to int erpret this result as normal/abnormal . [id number] 02:57:00 Test Item Value Reference Range Interpretation Comments Neutrophils # (test code = Neutrophils 4.8 1.5-8.1 #) [facility] [id number] 02:57:00 Test Item Value Reference Range Interpretation Comments Lymphocytes # (test code = Lymphocytes 2.3 1.0-5.5 #) [facility] [id number] 02:57:00 Test Item Value Reference Range Interpretation Comments Monocytes # (test code 0.6 See_Comment [Aut omated message] The = Monocytes #) system which generated this result tra nsmitted reference range : <=0.8. The reference r malcolm was not used to int erpret this result as normal/abnormal . [facility]2021-07-06 02:57:00 Test Item Value Reference Range Interpretation Comments UA Color (test code = Yellow *NA*(05/17/21 9:57 UA Color) PM) [facility] AND [id number] 02:57:00 Test Item Value Reference Range Interpretation Comments UA Turbidity (test code Cloudy *ABN*(05/17/21 = UA Turbidity) 9:57 PM) [facility] AND [id number] 02:57:00 Test Item Value Reference Range Interpretation Comments UA Spec Grav (test code = UA Spec 1.025 1 Grav) [facility] AND [id number] 02:57:00 Test Item Value Reference Range Interpretation Comments UA pH (test code = UA pH) 6.5 1 5.0-8.0 [facility] AND [id number] 02:57:00 Test Item Value Reference Range Interpretation Comments UA Protein (test code Negative (05/17/21 9:57 = UA Protein) PM) [facility] AND [id number] 02:57:00 Test Item Value Reference Range Interpretation Comments UA Glucose (test code Negative (05/17/21 9:57 = UA Glucose) PM) [facility] AND [id number] 02:57:00 Test Item Value Reference Range Interpretation Comments UA Ketones (test code = UA Ketones) 40 mg/dL [facility] AND [id number] 02:57:00 Test Item Value Reference Range Interpretation Comments UA Bili (test code = Negative *NA*(05/17/21 UA Bili) 9:57 PM) [facility] AND [id number] 02:57:00 Test Item Value Reference Range Interpretation Comments UA Blood (test code = Moderate *ABN*(05/17/21 UA Blood) 9:57 PM) [facility] AND [id number] 02:57:00 Test Item Value Reference Range Interpretation Comments UA Urobilinogen (test code = UA 2.0 0.1-1.0 Urobilinogen) [facility] AND [id number] 02:57:00 Test Item Value Reference Range Interpretation Comments UA Nitrite (test code Positive *ABN*(05/17/21 = UA Nitrite) 9:57 PM) [facility] AND [id number] 02:57:00 Test Item Value Reference Range Interpretation Comments UA Leuk Est (test code Trace *ABN*(05/17/21 9:57 = UA Leuk Est) PM) [facility] AND [id number] 02:57:00 Test Item Value Reference Range Interpretation Comments UA Sq Epi (test code = UA Sq Epi) Many /LPF [facility] AND [id number] 02:57:00 Test Item Value Reference Range Interpretation Comments UA WBC (test code = UA WBC) 11-20 /HPF [facility] [id number] 02:57:00 Test Item Value Reference Range Interpretation Comments UA RBC (test code = UA RBC) 6-10 /HPF [facility] [id number] 02:57:00 Test Item Value Reference Range Interpretation Comments UA Bacteria (test code = UA Many /HPF Bacteria) [facility] [id number] 02:57:00 Test Item Value Reference Range Interpretation Comments UA Mucus (test code = UA Mucus) Few /LPF [facility] [id number] 02:57:00 Test Item Value Reference Range Interpretation Comments UA Renal Epi (test code = UA Renal 3-5 /LPF Epi) [facility] [id number] 02:57:00 Test Item Value Reference Range Interpretation Comments Culture: Urine (test >100,000 CFU/mL code = Culture: Escherichia coli , Urine) Sensitivity Pending 10,000 - 50,000 CFU/mL Skin Amelia [place] [id number] 13:32:00 Test Item Value Reference Range Interpretation Comments Grp A Strep Scr (test Negative (05/13/21 8:32 code = Grp A Strep AM) Scr) [facility]: Throat Strep [id number] 13:32:00 Test Item Value Reference Range Interpretation Comments Culture: Throat Strep Culture In Progress Screen (test code = Culture: Throat Strep Screen) [place] [id number] 13:32:00 Test Item Value Reference Range Interpretation Comments Grp A Strep Scr (test Negative (05/13/21 8:32 code = Grp A Strep AM) Scr) [facility] Throat Strep [id number] 13:32:00 Test Item Value Reference Range Interpretation Comments Culture: Throat Strep Culture In Progress Screen (test code = Culture: Throat Strep Screen) [place] [id number] 13:32:00 Test Item Value Reference Range Interpretation Comments Grp A Strep Scr (test Negative (05/13/21 8:32 code = Grp A Strep AM) Scr) [facility] [id number] 13:32:00 Test Item Value Reference Range Interpretation Comments Culture: Throat Strep Culture In Progress Screen (test code = Culture: Throat Strep Screen) [id number] 13:32:00 Test Item Value Reference Range Interpretation Comments Grp A Strep Scr (test Negative (05/13/21 8:32 code = Grp A Strep AM) Scr) [facility] Th[facility]at Strep [id number] 13:32:00 Test Item Value Reference Range Interpretation Comments Culture: Throat Strep Culture In Progress Screen (test code = Culture: Throat Strep Screen) [facility] AND [id number] 17:34:00 Test Item Value Reference Range Interpretation Comments UA Bacteria (test code = UA Moderate /HPF Bacteria) [facility] AND [id number] 17:34:00 Test Item Value Reference Range Interpretation Comments UA Mucus (test code = UA Mucus) Moderate /LPF [facility]: [id number] 17:34:00 Test Item Value Reference Range Interpretation Comments Culture: Urine 10,000 - 50,000 CFU/mL Gram (test code = Negative Rods . Culture: Urine) Identification And Sensitivity Pending [facility]2021-03-23 17:34:00 Test Item Value Reference Range Interpretation Comments Glucose Lvl (test code = Glucose Lvl) 92 70-99 [facility]2021-03-23 17:34:00 Test Item Value Reference Range Interpretation Comments BUN (test code = BUN) 13 - [facility]2021-03-23 17:34:00 Test Item Value Reference Range Interpretation Comments Creatinine Lvl (test code = Creatinine 0.84 0.50-1.40 Lvl) [facility]2021-03-23 17:34:00 Test Item Value Reference Range Interpretation Comments Sodium Lvl (test code = Sodium Lvl) 138 135-145 [facility]2021-03-23 17:34:00 Test Item Value Reference Range Interpretation Comments Potassium Lvl (test code = Potassium 3.8 3.5-5.1 Lvl) [facility]2021-03-23 17:34:00 Test Item Value Reference Range Interpretation Comments Chloride Lvl (test code = Chloride Lvl) 100 95-109 [facility] HospitalGetSnippy [id number] 17:34:00 Test Item Value Reference Range Interpretation Comments CO2 (test code = CO2) 26 24-32 [facility] [id number] 17:34:00 Test Item Value Reference Range Interpretation Comments Calcium Lvl (test code = Calcium Lvl) 9.8 8.5-10.5 [facility] [id number] 17:34:00 Test Item Value Reference Range Interpretation Comments Total Protein (test code = Total 8.8 6.4-8.4 Protein) [facility] [id number] 17:34:00 Test Item Value Reference Range Interpretation Comments Albumin Lvl (test code = Albumin Lvl) 4.2 3.5-5.0 [facility] [id number] 17:34:00 Test Item Value Reference Range Interpretation Comments ALT (test code = ALT) 29 See_Comment [Auto mated message] The system which ge nerated this result transmit perico reference range : <=65. The reference range was not used to interpr et this result as sincere l/abnormal. [facility] [id number] 17:34:00 Test Item Value Reference Range Interpretation Comments AST (test code = AST) 15 See_Comment [Auto mated message] The system which ge nerated this result transmit perico reference range : <=37. The reference range was not used to interpr et this result as sincere l/abnormal. [facility] [employer] [id number] 17:34:00 Test Item Value Reference Range Interpretation Comments Alk Phos (test code = Alk Phos) 124 39-136 [facility] [id number] 17:34:00 Test Item Value Reference Range Interpretation Comments Bili Total (test code = Bili Total) 1.4 0.2-1.3 [facility] [id number] 17:34:00 Test Item Value Reference Range Interpretation Comments AGAP (test code = AGAP) 15.8 10.0-20.0 [facility] [id number] 17:34:00 Test Item Value Reference Range Interpretation Comments B/C Ratio (test code = B/C Ratio) 15 1 6-25 [facility] [id number] 17:34:00 Test Item Value Reference Range Interpretation Comments Globulin (test code = Globulin) 4.6 2.7-4.2 [place] [id number] 17:34:00 Test Item Value Reference Range Interpretation Comments A/G Ratio (test code = A/G Ratio) 0.9 1 0.7-1.6 [place] [id number] 17:34:00 Test Item Value Reference Range Interpretation Comments eGFR (test code = eGFR) 100 [place] [id number] 17:34:00 Test Item Value Reference Range Interpretation Comments Lipase Lvl (test code = Lipase Lvl) 99 73-393 [place] 928401-03-23 17:34:00 Test Item Value Reference Range Interpretation Comments Lactic Acid Lvl (test code = Lactic 1.0 0.5-2.2 Acid Lvl) [place] [id number] 17:34:00 Test Item Value Reference Range Interpretation Comments S Preg (test code = S Negative (02/02/21 12:34 Preg) PM) [place] [id number] 17:34:00 Test Item Value Reference Range Interpretation Comments WBC (test code = WBC) 14.8 3.7-10.4 [place] [address]-03-23 17:34:00 Test Item Value Reference Range Interpretation Comments RBC (test code = RBC) 5.09 4.20-5.[address]03-23 17:34:00 Test Item Value Reference Range Interpretation Comments Hgb (test code = Hgb) 15.0 12.0-16.0 [place] [address]-03-23 17:34:00 Test Item Value Reference Range Interpretation Comments Hct (test code = Hct) 45.9 36.0-48.0 [place] [address]-03-23 17:34:00 Test Item Value Reference Range Interpretation Comments MCV (test code = MCV) 90.3 80.0-98.0 [place] [address]-03-23 17:34:00 Test Item Value Reference Range Interpretation Comments MCH (test code = MCH) 29.6 pg 27.0-31.0 [place] [address]-03-23 17:34:00 Test Item Value Reference Range Interpretation Comments MCHC (test code = MCHC) 32.8 32.0-36.0 [place] [id number] 17:34:00 Test Item Value Reference Range Interpretation Comments RDW (test code = RDW) 12.7 11.5-14.5 [place] [id number] 17:34:00 Test Item Value Reference Range Interpretation Comments Platelet (test code = Platelet) 254 133-450 [place] 715871-03-23 17:34:00 Test Item Value Reference Range Interpretation Comments MPV (test code = MPV) 9.2 7.4-10.4 [place] 715871-03-23 17:34:00 Test Item Value Reference Range Interpretation Comments Segs (test code = Segs) 81.7 45.0-75.0 [place] 715871-03-23 17:34:00 Test Item Value Reference Range Interpretation Comments Lymphocytes (test code = Lymphocytes) 11.5 20.0-40.0 [place] 715871-03-23 17:34:00 Test Item Value Reference Range Interpretation Comments Monocytes (test code = Monocytes) 6.2 2.0-12.0 [place] 715871-03-23 17:34:00 Test Item Value Reference Range Interpretation Comments Eosinophils (test code = 0.2 See_Comment [A utomated message] The Eosinophils) system which ge nerated this result tra nsmitted reference range : <=4.0. The reference r malcolm was not used to int erpret this result as normal/abnormal . [place] 715871-03-23 17:34:00 Test Item Value Reference Range Interpretation Comments Basophils (test code = 0.5 See_Comment [Aut omated message] The Basophils) system which ge nerated this result tra nsmitted reference range : <=1.0. The reference r malcolm was not used to int erpret this result as normal/abnormal . [place] 715871-03-23 17:34:00 Test Item Value Reference Range Interpretation Comments Neutrophils # (test code = Neutrophils 12.1 1.5-8.1 #) [place] 715871-03-23 17:34:00 Test Item Value Reference Range Interpretation Comments Lymphocytes # (test code = Lymphocytes 1.7 1.0-5.5 #) [place] 715871-03-23 17:34:00 Test Item Value Reference Range Interpretation Comments Monocytes # (test code 0.9 See_Comment [Aut omated message] The = Monocytes #) system which generated this result tra nsmitted reference range : <=0.8. The reference r malcolm was not used to int erpret this result as normal/abnormal . [id number] 17:34:00 Test Item Value Reference Range Interpretation Comments Basophils # (test code 0.1 See_Comment [Aut omated message] The = Basophils #) system which generated this result tra nsmitted reference range : <=0.2. The reference r malcolm was not used to int erpret this result as normal/abnormal . [facility] [id number] 17:34:00 Test Item Value Reference Range Interpretation Comments Coronavirus (COVID-19) Not Detected (02/02/21 MILAGROS (test code = 12:34 PM) Coronavirus (COVID-19) MILAGROS) [facility] ArlingtonFrankiOFURANTOIN:SUSC:PT:ISOLATE:ORDQN:[id number] 17:34:00 Test Item Value Reference Range Interpretation Comments Culture: Urine (test 10,000 - 50,000 CFU/mL code = Culture: Escherichia coli <10,000 Urine) CFU/mL Skin Amelia [facility] ArlingtonJeniseTOIN:SUSC:PT:ISOLATE:ORDQN:[id number] 17:34:00 Test Item Value Reference Range Interpretation Comments Escherichia coli (test code Escherichia coli = Escherichia coli) [facility] AND [id number] 17:34:00 Test Item Value Reference Range Interpretation Comments UA Color (test code = Yellow *NA*(02/02/21 UA Color) 12:34 PM) [facility] AND [id number] 17:34:00 Test Item Value Reference Range Interpretation Comments UA Turbidity (test code Slight Cloudy = UA Turbidity) (02/02/21 12:34 PM) [facility] AND [id number] 17:34:00 Test Item Value Reference Range Interpretation Comments UA Spec Grav (test code = UA Spec 1.020 1 Grav) [facility] AND [id number] 17:34:00 Test Item Value Reference Range Interpretation Comments UA pH (test code = UA pH) 6.5 1 5.0-8.0 [facility] [id number] 17:34:00 Test Item Value Reference Range Interpretation Comments UA Protein (test code = Trace *ABN*(02/02/21 UA Protein) 12:34 PM) [facility] [id number] 17:34:00 Test Item Value Reference Range Interpretation Comments UA Glucose (test code Negative (02/02/21 12:34 = UA Glucose) PM) [facility] [id number] 17:34:00 Test Item Value Reference Range Interpretation Comments UA Ketones (test code = UA Ketones) 15 mg/dL [facility] AND [id number] 17:34:00 Test Item Value Reference Range Interpretation Comments UA Bili (test code = Small *ABN*(02/02/21 UA Bili) 12:34 PM) [facility] AND [id number] 17:34:00 Test Item Value Reference Range Interpretation Comments UA Blood (test code = Negative (02/02/21 12:34 UA Blood) PM) [facility] AND [id number] 17:34:00 Test Item Value Reference Range Interpretation Comments UA Urobilinogen (test code = UA 1.0 0.1-1.0 Urobilinogen) [facility] AND [id number] 17:34:00 Test Item Value Reference Range Interpretation Comments UA Nitrite (test code Negative (02/02/21 12:34 = UA Nitrite) PM) [facility] [id number] 17:34:00 Test Item Value Reference Range Interpretation Comments UA Leuk Est (test Moderate *ABN*(02/02/21 code = UA Leuk Est) 12:34 PM) [facility] [id number] 17:34:00 Test Item Value Reference Range Interpretation Comments UA Sq Epi (test code = UA Sq Moderate /LPF Epi) [facility] [id number] 17:34:00 Test Item Value Reference Range Interpretation Comments UA WBC (test code = UA WBC) 51-100 /HPF [facility] [id number] 17:34:00 Test Item Value Reference Range Interpretation Comments UA RBC (test code = UA RBC) 0-2 /HPF [facility] AND [id number] 17:34:00 Test Item Value Reference Range Interpretation Comments UA Bacteria (test code = UA Moderate /HPF Bacteria) [facility] AND [id number] 17:34:00 Test Item Value Reference Range Interpretation Comments UA Mucus (test code = UA Mucus) Moderate /LPF [facility] [id number] 17:34:00 Test Item Value Reference Range Interpretation Comments Culture: Urine 10,000 - 50,000 CFU/mL Gram (test code = Negative Rods . Culture: Urine) Identification And Sensitivity Pending [facility]2021-03-23 17:34:00 Test Item Value Reference Range Interpretation Comments Glucose Lvl (test code = Glucose Lvl) 92 70-99 [facility]2021-03-23 17:34:00 Test Item Value Reference Range Interpretation Comments BUN (test code = BUN) 13 7-22 [facility]2021-03-23 17:34:00 Test Item Value Reference Range Interpretation Comments Creatinine Lvl (test code = Creatinine 0.84 0.50-1.40 Lvl) [facility]2021-03-23 17:34:00 Test Item Value Reference Range Interpretation Comments Sodium Lvl (test code = Sodium Lvl) 138 135-145 [facility]2021-03-23 17:34:00 Test Item Value Reference Range Interpretation Comments Potassium Lvl (test code = Potassium 3.8 3.5-5.1 Lvl) [facility]2021-03-23 17:34:00 Test Item Value Reference Range Interpretation Comments Chloride Lvl (test code = Chloride Lvl) 100 95-109 [facility]2021-03-23 17:34:00 Test Item Value Reference Range Interpretation Comments CO2 (test code = CO2) 26 24-32 [facility]2021-03-23 17:34:00 Test Item Value Reference Range Interpretation Comments Calcium Lvl (test code = Calcium Lvl) 9.8 8.5-10.5 [facility]2021-03-23 17:34:00 Test Item Value Reference Range Interpretation Comments Total Protein (test code = Total 8.8 6.4-8.4 Protein) [facility]2021-03-23 17:34:00 Test Item Value Reference Range Interpretation Comments Albumin Lvl (test code = Albumin Lvl) 4.2 3.5-5.0 [facility] [id number] 17:34:00 Test Item Value Reference Range Interpretation Comments ALT (test code = ALT) 29 See_Comment [Auto mated message] The system which ge nerated this result transmit perico reference range : <=65. The reference range was not used to interpr et this result as sincere l/abnormal. [facility] [id number] 17:34:00 Test Item Value Reference Range Interpretation Comments AST (test code = AST) 15 See_Comment [Auto mated message] The system which ge nerated this result transmit perico reference range : <=37. The reference range was not used to interpr et this result as sincere l/abnormal. [facility] [id number] 17:34:00 Test Item Value Reference Range Interpretation Comments Alk Phos (test code = Alk Phos) 124 39-136 [facility] [id number] 17:34:00 Test Item Value Reference Range Interpretation Comments Bili Total (test code = Bili Total) 1.4 0.2-1.3 [facility] [id number] 17:34:00 Test Item Value Reference Range Interpretation Comments AGAP (test code = AGAP) 15.8 10.0-20.0 [facility] [id number] 17:34:00 Test Item Value Reference Range Interpretation Comments B/C Ratio (test code = B/C Ratio) 15 1 6-25 [facility] [id number] 17:34:00 Test Item Value Reference Range Interpretation Comments Globulin (test code = Globulin) 4.6 2.7-4.2 [facility] [id number] 17:34:00 Test Item Value Reference Range Interpretation Comments A/G Ratio (test code = A/G Ratio) 0.9 1 0.7-1.6 [facility] [id number] 17:34:00 Test Item Value Reference Range Interpretation Comments eGFR (test code = eGFR) 100 [facility] [employer] [id number] 17:34:00 Test Item Value Reference Range Interpretation Comments Lipase Lvl (test code = Lipase Lvl) 99 73-393 [facility]2021-03-23 17:34:00 Test Item Value Reference Range Interpretation Comments Lactic Acid Lvl (test code = Lactic 1.0 0.5-2.2 Acid Lvl) [id number] 17:34:00 Test Item Value Reference Range Interpretation Comments S Preg (test code = S Negative (02/02/21 12:34 Preg) PM) [facility] H[id number] 17:34:00 Test Item Value Reference Range Interpretation Comments WBC (test code = WBC) 14.8 3.7-10.4 [facility] H[id number] 17:34:00 Test Item Value Reference Range Interpretation Comments RBC (test code = RBC) 5.09 4.20-5.40 [facility] [id number] 17:34:00 Test Item Value Reference Range Interpretation Comments Hgb (test code = Hgb) 15.0 12.0-16.0 [facility] [id number] 17:34:00 Test Item Value Reference Range Interpretation Comments Hct (test code = Hct) 45.9 36.0-48.0 [facility] H[id number] 17:34:00 Test Item Value Reference Range Interpretation Comments MCV (test code = MCV) 90.3 80.0-98.0 [facility] H[id number] 17:34:00 Test Item Value Reference Range Interpretation Comments MCH (test code = MCH) 29.6 pg 27.0-31.0 [facility] Ho[id number] 17:34:00 Test Item Value Reference Range Interpretation Comments MCHC (test code = MCHC) 32.8 32.0-36.0 [place] [id number] 17:34:00 Test Item Value Reference Range Interpretation Comments RDW (test code = RDW) 12.7 11.5-14.5 [place] [id number] 17:34:00 Test Item Value Reference Range Interpretation Comments Platelet (test code = Platelet) 254 133-450 [facility] [id number] 17:34:00 Test Item Value Reference Range Interpretation Comments MPV (test code = MPV) 9.2 7.4-10.[address]03-23 17:34:00 Test Item Value Reference Range Interpretation Comments Segs (test code = Segs) 81.7 45.0-75.0 [address]03-23 17:34:00 Test Item Value Reference Range Interpretation Comments Lymphocytes (test code = Lymphocytes) 11.5 20.0-40.[address]03-23 17:34:00 Test Item Value Reference Range Interpretation Comments Monocytes (test code = Monocytes) 6.2 2.0-12.[address]03-23 17:34:00 Test Item Value Reference Range Interpretation Comments Eosinophils (test code = 0.2 See_Comment [A utomated message] The Eosinophils) system which ge nerated this result tra nsmitted reference range : <=4.0. The reference r malcolm was not used to int erpret this result as normal/abnormal . [address]03-23 17:34:00 Test Item Value Reference Range Interpretation Comments Basophils (test code = 0.5 See_Comment [Aut omated message] The Basophils) system which ge nerated this result tra nsmitted reference range : <=1.0. The reference r malcolm was not used to int erpret this result as normal/abnormal . [address]03-23 17:34:00 Test Item Value Reference Range Interpretation Comments Neutrophils # (test code = Neutrophils 12.1 1.5-8.1 #) [address]03-23 17:34:00 Test Item Value Reference Range Interpretation Comments Lymphocytes # (test code = Lymphocytes 1.7 1.0-5.5 #) [address]03-23 17:34:00 Test Item Value Reference Range Interpretation Comments Monocytes # (test code 0.9 See_Comment [Aut omated message] The = Monocytes #) system which generated this result tra nsmitted reference range : <=0.8. The reference r malcolm was not used to int erpret this result as normal/abnormal . [address]03-23 17:34:00 Test Item Value Reference Range Interpretation Comments Basophils # (test code 0.1 See_Comment [Aut omated message] The = Basophils #) system which generated this result tra nsmitted reference range : <=0.2. The reference r malcolm was not used to int erpret this result as normal/abnormal . [facility] InfipdmPQKKEYSPFP7621-04-63 17:34:00 Test Item Value Reference Range Interpretation Comments Coronavirus (COVID-19) Not Detected (02/02/21 MILAGROS (test code = 12:34 PM) Coronavirus (COVID-19) MILAGROS) [facility] WillieNITROFURANTOIN:SUSC:PT:ISOLATE:ORDQN:[id number] 17:34:00 Test Item Value Reference Range Interpretation Comments Culture: Urine (test 10,000 - 50,000 CFU/mL code = Culture: Escherichia coli <10,000 Urine) CFU/mL Skin Amelia [facility] PamellaannNITROFURANTOIN:SUSC:PT:ISOLATE:ORDQN:[id number] 17:34:00 Test Item Value Reference Range Interpretation Comments Escherichia coli (test code Escherichia coli = Escherichia coli) [facility] [id number] 17:34:00 Test Item Value Reference Range Interpretation Comments UA Color (test code = Yellow *NA*(02/02/21 UA Color) 12:34 PM) [facility] [id number] 17:34:00 Test Item Value Reference Range Interpretation Comments UA Turbidity (test code Slight Cloudy = UA Turbidity) (02/02/21 12:34 PM) [facility] [id number] 17:34:00 Test Item Value Reference Range Interpretation Comments UA Spec Grav (test code = UA Spec 1.020 1 Grav) [facility] [id number] 17:34:00 Test Item Value Reference Range Interpretation Comments UA pH (test code = UA pH) 6.5 1 5.0-8.0 [facility] [id number] 17:34:00 Test Item Value Reference Range Interpretation Comments UA Protein (test code = Trace *ABN*(02/02/21 UA Protein) 12:34 PM) [facility] [id number] 17:34:00 Test Item Value Reference Range Interpretation Comments UA Glucose (test code Negative (02/02/21 12:34 = UA Glucose) PM) [facility] [id number] 17:34:00 Test Item Value Reference Range Interpretation Comments UA Ketones (test code = UA Ketones) 15 mg/dL [facility] [id number] 17:34:00 Test Item Value Reference Range Interpretation Comments UA Bili (test code = Small *ABN*(02/02/21 UA Bili) 12:34 PM) [facility] [id number] 17:34:00 Test Item Value Reference Range Interpretation Comments UA Blood (test code = Negative (02/02/21 12:34 UA Blood) PM) [facility] [id number] 17:34:00 Test Item Value Reference Range Interpretation Comments UA Urobilinogen (test code = UA 1.0 0.1-1.0 Urobilinogen) [facility] [id number] 17:34:00 Test Item Value Reference Range Interpretation Comments UA Nitrite (test code Negative (02/02/21 12:34 = UA Nitrite) PM) [facility] [id number] 17:34:00 Test Item Value Reference Range Interpretation Comments UA Leuk Est (test Moderate *ABN*(02/02/21 code = UA Leuk Est) 12:34 PM) [facility] [id number] 17:34:00 Test Item Value Reference Range Interpretation Comments UA Sq Epi (test code = UA Sq Moderate /LPF Epi) [facility] [id number] 17:34:00 Test Item Value Reference Range Interpretation Comments UA WBC (test code = UA WBC) 51-100 /HPF [facility] [id number] 17:34:00 Test Item Value Reference Range Interpretation Comments UA RBC (test code = UA RBC) 0-2 /HPF [facility] [id number] 17:34:00 Test Item Value Reference Range Interpretation Comments UA Bacteria (test code = UA Moderate /HPF Bacteria) [facility] [id number] 17:34:00 Test Item Value Reference Range Interpretation Comments UA Mucus (test code = UA Mucus) Moderate /LPF [facility]ann[facility]: [id number] 17:34:00 Test Item Value Reference Range Interpretation Comments Culture: Urine 10,000 - 50,000 CFU/mL Gram (test code = Negative Rods . Culture: Urine) Identification And Sensitivity Pending [facility]2021-03-23 17:34:00 Test Item Value Reference Range Interpretation Comments Glucose Lvl (test code = Glucose Lvl) 92 70-99 [place] 928401-03-23 17:34:00 Test Item Value Reference Range Interpretation Comments BUN (test code = BUN) 13 7-22 [place] 928401-03-23 17:34:00 Test Item Value Reference Range Interpretation Comments Creatinine Lvl (test code = Creatinine 0.84 0.50-1.40 Lvl) [place] 928401-03-23 17:34:00 Test Item Value Reference Range Interpretation Comments Sodium Lvl (test code = Sodium Lvl) 138 135-145 [place] 928401-03-23 17:34:00 Test Item Value Reference Range Interpretation Comments Potassium Lvl (test code = Potassium 3.8 3.5-5.1 Lvl) [place] 928401-03-23 17:34:00 Test Item Value Reference Range Interpretation Comments Chloride Lvl (test code = Chloride Lvl) 100 95-109 [place] 928401-03-23 17:34:00 Test Item Value Reference Range Interpretation Comments CO2 (test code = CO2) 26 24-32 [place] 928401-03-23 17:34:00 Test Item Value Reference Range Interpretation Comments Calcium Lvl (test code = Calcium Lvl) 9.8 8.5-10.5 [place] 928401-03-23 17:34:00 Test Item Value Reference Range Interpretation Comments Total Protein (test code = Total 8.8 6.4-8.4 Protein) [facility]2021-03-23 17:34:00 Test Item Value Reference Range Interpretation Comments Albumin Lvl (test code = Albumin Lvl) 4.2 3.5-5.0 [place] 928401-03-23 17:34:00 Test Item Value Reference Range Interpretation Comments ALT (test code = ALT) 29 <=65 [place] 928401-03-23 17:34:00 Test Item Value Reference Range Interpretation Comments AST (test code = AST) 15 <=37 [place] 928401-03-23 17:34:00 Test Item Value Reference Range Interpretation Comments Alk Phos (test code = Alk Phos) 124 39-136 [place] 928401-03-23 17:34:00 Test Item Value Reference Range Interpretation Comments Bili Total (test code = Bili Total) 1.4 0.2-1.3 [place] 928401-03-23 17:34:00 Test Item Value Reference Range Interpretation Comments AGAP (test code = AGAP) 15.8 10.0-20.0 [place] 928401-03-23 17:34:00 Test Item Value Reference Range Interpretation Comments B/C Ratio (test code = B/C Ratio) 15 1 6-[address]03-23 17:34:00 Test Item Value Reference Range Interpretation Comments Globulin (test code = Globulin) 4.6 2.7-4.2 [place] 928401-03-23 17:34:00 Test Item Value Reference Range Interpretation Comments A/G Ratio (test code = A/G Ratio) 0.9 1 0.7-1.6 [address]03-23 17:34:00 Test Item Value Reference Range Interpretation Comments eGFR (test code = eGFR) 100 [place] 928401-03-23 17:34:00 Test Item Value Reference Range Interpretation Comments Lipase Lvl (test code = Lipase Lvl) 99 73-393 [place] 928401-03-23 17:34:00 Test Item Value Reference Range Interpretation Comments Lactic Acid Lvl (test code = Lactic 1.0 0.5-2.2 Acid Lvl) [facility]TD[facility]XOEVOR6835-08-33 17:34:00 Test Item Value Reference Range Interpretation Comments S Preg (test code = S Negative (02/02/21 12:34 Preg) PM) [address]03-23 17:34:00 Test Item Value Reference Range Interpretation Comments WBC (test code = WBC) 14.8 3.7-10.4 [place] [address]-03-23 17:34:00 Test Item Value Reference Range Interpretation Comments RBC (test code = RBC) 5.09 4.20-5.[address]03-23 17:34:00 Test Item Value Reference Range Interpretation Comments Hgb (test code = Hgb) 15.0 12.0-16.0 [facility]AnqbiugAEPMDLKVST2547-87-11 17:34:00 Test Item Value Reference Range Interpretation Comments Hct (test code = Hct) 45.9 36.0-48.0 [facility] HospitalJrliihhWGULCTVXPQ0327-56-96 17:34:00 Test Item Value Reference Range Interpretation Comments MCV (test code = MCV) 90.3 80.0-98.0 [facility] HospitalZpwtflyVITHLVSNQM5073-66-15 17:34:00 Test Item Value Reference Range Interpretation Comments MCH (test code = MCH) 29.6 pg 27.0-31.0 [facility] HospitalXltmbvxCYLIFAVWOZ2885-88-54 17:34:00 Test Item Value Reference Range Interpretation Comments MCHC (test code = MCHC) 32.8 32.0-36.0 [facility] HospitalTdosugpMOPRVTMYQE5661-62-15 17:34:00 Test Item Value Reference Range Interpretation Comments RDW (test code = RDW) 12.7 11.5-14.5 [facility] HospitalXesvwetMWMUAKOVOL4522-21-89 17:34:00 Test Item Value Reference Range Interpretation Comments Platelet (test code = Platelet) 254 133-450 [facility] HospitalYsjnunmCPBZHDLSGQ2324-75-58 17:34:00 Test Item Value Reference Range Interpretation Comments MPV (test code = MPV) 9.2 7.4-10.4 [facility] HospitalHcfnmgeXACJNBOOKQ2786-12-35 17:34:00 Test Item Value Reference Range Interpretation Comments Segs (test code = Segs) 81.7 45.0-75.0 [facility] HospitalZsnradsJWZRMBUNUZ9520-10-15 17:34:00 Test Item Value Reference Range Interpretation Comments Lymphocytes (test code = Lymphocytes) 11.5 20.0-40.0 [place] 715871-03-23 17:34:00 Test Item Value Reference Range Interpretation Comments Monocytes (test code = Monocytes) 6.2 2.0-12.0 [place] 715871-03-23 17:34:00 Test Item Value Reference Range Interpretation Comments Eosinophils (test code = Eosinophils) 0.2 <=4.0 [place] 715871-03-23 17:34:00 Test Item Value Reference Range Interpretation Comments Basophils (test code = Basophils) 0.5 <=1.0 [place] 715871-03-23 17:34:00 Test Item Value Reference Range Interpretation Comments Neutrophils # (test code = Neutrophils 12.1 1.5-8.1 #) [facility]mj[facility]opMCWFRLWNHX6692-55-26 17:34:00 Test Item Value Reference Range Interpretation Comments Lymphocytes # (test code = Lymphocytes 1.7 1.0-5.5 #) [facility]RapqmdyDRAXMQHWCL4743-91-78 17:34:00 Test Item Value Reference Range Interpretation Comments Monocytes # (test code = Monocytes #) 0.9 <=0.8 [facility]VmxgxirVWTUXSSHPX9060-17-95 17:34:00 Test Item Value Reference Range Interpretation Comments Basophils # (test code = Basophils #) 0.1 <=0.2 [facility] HospitalObhcyuiREICFDBSPK1393-91-85 17:34:00 Test Item Value Reference Range Interpretation Comments Coronavirus (COVID-19) Not Detected (02/02/21 MILAGORS (test code = 12:34 PM) Coronavirus (COVID-19) MILAGROS) [facility] CenterTROFURANTOIN:SUSC:PT:ISOLATE:ORDQN:[id number] 17:34:00 Test Item Value Reference Range Interpretation Comments Culture: Urine (test 10,000 - 50,000 CFU/mL code = Culture: Escherichia coli <10,000 Urine) CFU/mL Skin [facility]:SUSC:PT:ISOLATE:ORDQN:[id number] 17:34:00 Test Item Value Reference Range Interpretation Comments Escherichia coli (test code Escherichia coli = Escherichia coli) [facility] AND [id number] 17:34:00 Test Item Value Reference Range Interpretation Comments UA Color (test code = Yellow *NA*(02/02/21 UA Color) 12:34 PM) [facility] AND [id number] 17:34:00 Test Item Value Reference Range Interpretation Comments UA Turbidity (test code Slight Cloudy = UA Turbidity) (02/02/21 12:34 PM) [facility] AND [id number] 17:34:00 Test Item Value Reference Range Interpretation Comments UA Spec Grav (test code = UA Spec 1.020 1 Grav) [facility] AND [id number] 17:34:00 Test Item Value Reference Range Interpretation Comments UA pH (test code = UA pH) 6.5 1 5.0-8.0 [facility] [id number] 17:34:00 Test Item Value Reference Range Interpretation Comments UA Protein (test code = Trace *ABN*(02/02/21 UA Protein) 12:34 PM) [facility] [id number] 17:34:00 Test Item Value Reference Range Interpretation Comments UA Glucose (test code Negative (02/02/21 12:34 = UA Glucose) PM) [facility] [id number] 17:34:00 Test Item Value Reference Range Interpretation Comments UA Ketones (test code = UA Ketones) 15 mg/dL [facility] [id number] 17:34:00 Test Item Value Reference Range Interpretation Comments UA Bili (test code = Small *ABN*(02/02/21 UA Bili) 12:34 PM) [facility] [id number] 17:34:00 Test Item Value Reference Range Interpretation Comments UA Blood (test code = Negative (02/02/21 12:34 UA Blood) PM) [facility] [id number] 17:34:00 Test Item Value Reference Range Interpretation Comments UA Urobilinogen (test code = UA 1.0 0.1-1.0 Urobilinogen) [facility] [id number] 17:34:00 Test Item Value Reference Range Interpretation Comments UA Nitrite (test code Negative (02/02/21 12:34 = UA Nitrite) PM) [facility] [id number] 17:34:00 Test Item Value Reference Range Interpretation Comments UA Leuk Est (test Moderate *ABN*(02/02/21 code = UA Leuk Est) 12:34 PM) [facility] [id number] 17:34:00 Test Item Value Reference Range Interpretation Comments UA Sq Epi (test code = UA Sq Moderate /LPF Epi) [facility] [id number] 17:34:00 Test Item Value Reference Range Interpretation Comments UA WBC (test code = UA WBC) 51-100 /HPF [facility] [id number] 17:34:00 Test Item Value Reference Range Interpretation Comments UA RBC (test code = UA RBC) 0-2 /HPF [facility] [id number] 17:34:00 Test Item Value Reference Range Interpretation Comments UA Bacteria (test code = UA Moderate /HPF Bacteria) [facility] AND [id number] 17:34:00 Test Item Value Reference Range Interpretation Comments UA Mucus (test code = UA Mucus) Moderate /LPF [facility] HospitalCulture: [id number] 17:34:00 Test Item Value Reference Range Interpretation Comments Culture: Urine 10,000 - 50,000 CFU/mL Gram (test code = Negative Rods . Culture: Urine) Identification And Sensitivity Pending [facility]2021-03-23 17:34:00 Test Item Value Reference Range Interpretation Comments Glucose Lvl (test code = Glucose Lvl) 92 70-99 [facility]2021-03-23 17:34:00 Test Item Value Reference Range Interpretation Comments BUN (test code = BUN) 13 7-22 [facility]2021-03-23 17:34:00 Test Item Value Reference Range Interpretation Comments Creatinine Lvl (test code = Creatinine 0.84 0.50-1.40 Lvl) [facility]2021-03-23 17:34:00 Test Item Value Reference Range Interpretation Comments Sodium Lvl (test code = Sodium Lvl) 138 135-145 [facility]2021-03-23 17:34:00 Test Item Value Reference Range Interpretation Comments Potassium Lvl (test code = Potassium 3.8 3.5-5.1 Lvl) [facility]2021-03-23 17:34:00 Test Item Value Reference Range Interpretation Comments Chloride Lvl (test code = Chloride Lvl) 100 95-109 [facility]2021-03-23 17:34:00 Test Item Value Reference Range Interpretation Comments CO2 (test code = CO2) 26 24-32 [facility]2021-03-23 17:34:00 Test Item Value Reference Range Interpretation Comments Calcium Lvl (test code = Calcium Lvl) 9.8 8.5-10.5 [facility]2021-03-23 17:34:00 Test Item Value Reference Range Interpretation Comments Total Protein (test code = Total 8.8 6.4-8.4 Protein) [facility]2021-03-23 17:34:00 Test Item Value Reference Range Interpretation Comments Albumin Lvl (test code = Albumin Lvl) 4.2 3.5-5.0 [facility] [employer] [id number] 17:34:00 Test Item Value Reference Range Interpretation Comments ALT (test code = ALT) 29 See_Comment [Auto mated message] The system which ge nerated this result transmit perico reference range : <=65. The reference range was not used to interpr et this result as sincere l/abnormal. [facility] [employer] [id number] 17:34:00 Test Item Value Reference Range Interpretation Comments AST (test code = AST) 15 See_Comment [Auto mated message] The system which ge nerated this result transmit perico reference range : <=37. The reference range was not used to interpr et this result as sincere l/abnormal. [facility] [employer] [id number] 17:34:00 Test Item Value Reference Range Interpretation Comments Alk Phos (test code = Alk Phos) 124 39-136 [facility] [employer] [id number] 17:34:00 Test Item Value Reference Range Interpretation Comments Bili Total (test code = Bili Total) 1.4 0.2-1.3 [facility] [employer] [id number] 17:34:00 Test Item Value Reference Range Interpretation Comments AGAP (test code = AGAP) 15.8 10.0-20.0 [facility] [employer] [id number] 17:34:00 Test Item Value Reference Range Interpretation Comments B/C Ratio (test code = B/C Ratio) 15 1 6-25 [facility] [employer] [id number] 17:34:00 Test Item Value Reference Range Interpretation Comments Globulin (test code = Globulin) 4.6 2.7-4.2 [facility] [employer] [id number] 17:34:00 Test Item Value Reference Range Interpretation Comments A/G Ratio (test code = A/G Ratio) 0.9 1 0.7-1.6 [facility] [employer] [id number] 17:34:00 Test Item Value Reference Range Interpretation Comments eGFR (test code = eGFR) 100 [facility] [employer] [id number] 17:34:00 Test Item Value Reference Range Interpretation Comments Lipase Lvl (test code = Lipase Lvl) 99 73-393 [facility]2021-03-23 17:34:00 Test Item Value Reference Range Interpretation Comments Lactic Acid Lvl (test code = Lactic 1.0 0.5-2.2 Acid Lvl) [facility]xdqqxeDAHUQJGIEESVR5749-22-32 17:34:00 Test Item Value Reference Range Interpretation Comments S Preg (test code = S Negative (02/02/21 12:34 Preg) PM) [facility] HospitalGscwgaxADGUCHOGWG5280-57-81 17:34:00 Test Item Value Reference Range Interpretation Comments WBC (test code = WBC) 14.8 3.7-10.4 [facility] HospitalYofephbGFAIOLDKYL4851-18-66 17:34:00 Test Item Value Reference Range Interpretation Comments RBC (test code = RBC) 5.09 4.20-5.40 [facility] HospitalPcwruqzKUFQZRVVYH7688-89-23 17:34:00 Test Item Value Reference Range Interpretation Comments Hgb (test code = Hgb) 15.0 12.0-16.0 [facility] HospitalRomtsdxMBVHWFGNXJ4648-07-24 17:34:00 Test Item Value Reference Range Interpretation Comments Hct (test code = Hct) 45.9 36.0-48.0 [facility] HospitalSqlmjwpNSYYPRJEUN3179-13-22 17:34:00 Test Item Value Reference Range Interpretation Comments MCV (test code = MCV) 90.3 80.0-98.0 [facility] HospitalRwwnumnGVTRKIBBDL2278-98-97 17:34:00 Test Item Value Reference Range Interpretation Comments MCH (test code = MCH) 29.6 pg 27.0-31.0 [facility] HospitalBjlyvktUEWXPOHEHA7676-81-13 17:34:00 Test Item Value Reference Range Interpretation Comments MCHC (test code = MCHC) 32.8 32.0-36.0 [place] [id number] 17:34:00 Test Item Value Reference Range Interpretation Comments RDW (test code = RDW) 12.7 11.5-14.5 [facility] HospitalEcmcchhCYYXVGZGJX2248-06-81 17:34:00 Test Item Value Reference Range Interpretation Comments Platelet (test code = Platelet) 254 133-450 [facility] HospitalGhlimcaNFNKUCKKLH4394-74-04 17:34:00 Test Item Value Reference Range Interpretation Comments MPV (test code = MPV) 9.2 7.4-10.[address]03-23 17:34:00 Test Item Value Reference Range Interpretation Comments Segs (test code = Segs) 81.7 45.0-75.0 [address]03-23 17:34:00 Test Item Value Reference Range Interpretation Comments Lymphocytes (test code = Lymphocytes) 11.5 20.0-40.0 [address]03-23 17:34:00 Test Item Value Reference Range Interpretation Comments Monocytes (test code = Monocytes) 6.2 2.0-12.0 [address]03-23 17:34:00 Test Item Value Reference Range Interpretation Comments Eosinophils (test code = 0.2 See_Comment [A utomated message] The Eosinophils) system which ge nerated this result tra nsmitted reference range : <=4.0. The reference r malcolm was not used to int erpret this result as normal/abnormal . [address]03-23 17:34:00 Test Item Value Reference Range Interpretation Comments Basophils (test code = 0.5 See_Comment [Aut omated message] The Basophils) system which ge nerated this result tra nsmitted reference range : <=1.0. The reference r malcolm was not used to int erpret this result as normal/abnormal . [address]03-23 17:34:00 Test Item Value Reference Range Interpretation Comments Neutrophils # (test code = Neutrophils 12.1 1.5-8.1 #) [address]03-23 17:34:00 Test Item Value Reference Range Interpretation Comments Lymphocytes # (test code = Lymphocytes 1.7 1.0-5.5 #) [address]03-23 17:34:00 Test Item Value Reference Range Interpretation Comments Monocytes # (test code 0.9 See_Comment [Aut omated message] The = Monocytes #) system which generated this result tra nsmitted reference range : <=0.8. The reference r malcolm was not used to int erpret this result as normal/abnormal . [address]03-23 17:34:00 Test Item Value Reference Range Interpretation Comments Basophils # (test code 0.1 See_Comment [Aut omated message] The = Basophils #) system which generated this result tra nsmitted reference range : <=0.2. The reference r malcolm was not used to int erpret this result as normal/abnormal . [facility] Ar[id number] 17:34:00 Test Item Value Reference Range Interpretation Comments Coronavirus (COVID-19) Not Detected (02/02/21 MILAGROS (test code = 12:34 PM) Coronavirus (COVID-19) MILAGROS) [facility] ArlingtonsinaNITROFURANTOIN:SUSC:PT:ISOLATE:ORDQN:[id number] 17:34:00 Test Item Value Reference Range Interpretation Comments Culture: Urine (test 10,000 - 50,000 CFU/mL code = Culture: Escherichia coli <10,000 Urine) CFU/mL Skin Amelia [facility] ArlingtonFrankiOFURANTOIN:SUSC:PT:ISOLATE:ORDQN:[id number] 17:34:00 Test Item Value Reference Range Interpretation Comments Escherichia coli (test code Escherichia coli = Escherichia coli) [facility] AND [id number] 17:34:00 Test Item Value Reference Range Interpretation Comments UA Color (test code = Yellow *NA*(02/02/21 UA Color) 12:34 PM) [facility] AND [id number] 17:34:00 Test Item Value Reference Range Interpretation Comments UA Turbidity (test code Slight Cloudy = UA Turbidity) (02/02/21 12:34 PM) [facility] AND [id number] 17:34:00 Test Item Value Reference Range Interpretation Comments UA Spec Grav (test code = UA Spec 1.020 1 Grav) [facility] AND [id number] 17:34:00 Test Item Value Reference Range Interpretation Comments UA pH (test code = UA pH) 6.5 1 5.0-8.0 [facility] AND [id number] 17:34:00 Test Item Value Reference Range Interpretation Comments UA Protein (test code = Trace *ABN*(02/02/21 UA Protein) 12:34 PM) [facility] AND [id number] 17:34:00 Test Item Value Reference Range Interpretation Comments UA Glucose (test code Negative (02/02/21 12:34 = UA Glucose) PM) [facility] AND [id number] 17:34:00 Test Item Value Reference Range Interpretation Comments UA Ketones (test code = UA Ketones) 15 mg/dL [facility] [id number] 17:34:00 Test Item Value Reference Range Interpretation Comments UA Bili (test code = Small *ABN*(02/02/21 UA Bili) 12:34 PM) [facility] [id number] 17:34:00 Test Item Value Reference Range Interpretation Comments UA Blood (test code = Negative (02/02/21 12:34 UA Blood) PM) [facility] [id number] 17:34:00 Test Item Value Reference Range Interpretation Comments UA Urobilinogen (test code = UA 1.0 0.1-1.0 Urobilinogen) [facility] [id number] 17:34:00 Test Item Value Reference Range Interpretation Comments UA Nitrite (test code Negative (02/02/21 12:34 = UA Nitrite) PM) [facility] [id number] 17:34:00 Test Item Value Reference Range Interpretation Comments UA Leuk Est (test Moderate *ABN*(02/02/21 code = UA Leuk Est) 12:34 PM) [facility] [id number] 17:34:00 Test Item Value Reference Range Interpretation Comments UA Sq Epi (test code = UA Sq Moderate /LPF Epi) [facility] [id number] 17:34:00 Test Item Value Reference Range Interpretation Comments UA WBC (test code = UA WBC) 51-100 /HPF [facility] [id number] 17:34:00 Test Item Value Reference Range Interpretation Comments UA RBC (test code = UA RBC) 0-2 /HPF [facility] [id number] 09:12:00 RUN DATE: 10/09/18 [place] *LIVE* PAGE 1 RUN TIME: 911 Specimen Inquiry RUN USER: INTERFACE --------- ---PATIENT: KAYY ORELLANA LOC: EULOGIO #: [id number] AGE/SX: ROOM: RE10[facility]02/[facility] DR: Fede Lieberman MD : 00 BED: DIS: STATUS: [facility] TLOC: SPEC #: [id number] RECD: 10/02/18 STATUS: NOEMY RUBENS #: [id number] EVELIO: 10/02/18 [facility] DR: Fede Lieberman MD ENTERED: 10/06/18 SP TYPE: SURG SPEC OTHR DR: Osmar Portillo DO ORDERED: GM LEVEL 4 CODES: [id number] - STOMACH, NOS [id number] - SMALL INTESTINE [place]IES [place]: [place] [address] [place] [address] [email or web address] Fede Lieberman MD [address] [place] [address] [id number] [place] [address] PROCEDURES: GM LEVEL 4 (Incomplete) [...] submitted in one cassette (A). Received in formalinlabeled antrum biopsy are 3 friedman tissue fragments measuring up to 0.3 cm (B). MICROSCOPIC EXAMINATION: Sections of the duodenum reveal intact villous architecture. The lamina propria contains a mild chronic inflammatory infiltrate. Sections of the gastric biopsy show changes of mild chronic gastritis.The CONTINUED ON NEXT PAGE RUN DATE: 10/09/18 [facility] *LIVE* PAGE 2 RUN TIME: 911 Specimen Inquiry RUN USER: INTERFACE SPEC #: [id number] PATIENT: SUHA ORELLANAIE #[id number] (Continued) GROSS AND MICROSCOPIC(Continued) lamina propria contains a mild inflammatory infiltrate. The Alcian blue/PAS stain does not show goblet cell metaplasia. The immunostain for Helicobacter organisms is negative. (When specialstains have been reviewed, the appropriate positive/negative controls have been reviewed and are appropriately positive/negative). POST-OP DIAGNOSIS EGD-hiatal hernia PRE-OP DIAGNOSIS Blood in stool, GERD Signed SIGNATURE ON FILE Dom Coles Low DO 10/09/18 0912 END OF REPORT HEMATOLOGY 2018-09-24 23:46:00 Test Item Value Reference Range Interpretation Comments PTT (test code = PTT) 26.7 s 22.9-35.8 [id number] 23:46:00 Test Item Value Reference Range Interpretation Comments PT (test code = PT) 13.6 s 12.0-14.7 [facility]hruuvSDBZQBCJZW0843-04-28 23:46:00 Test Item Value Reference Range Interpretation Comments INR (test code = INR) 1.04 1 0.85-1.17 [facility]2018-11-12 23:46:00 Test Item Value Reference Range Interpretation Comments UA Nitrite (test code Negative (09/24/18 5:46 = UA Nitrite) PM) [facility]2018-11-12 23:46:00 Test Item Value Reference Range Interpretation Comments UA Leuk Est (test code Small *ABN*(09/24/18 = UA Leuk Est) 5:46 PM) [facility]2018-11-12 23:46:00 Test Item Value Reference Range Interpretation Comments UA Blood (test code = Large *ABN*(09/24/18 UA Blood) 5:46 PM) [facility] AND [id number] 23:46:00 Test Item Value Reference Range Interpretation Comments UA Urobilinogen (test code = UA 0.2 0.1-1.0 Urobilinogen) [facility] AND [id number] 23:46:00 Test Item Value Reference Range Interpretation Comments UA Ketones (test code Negative *NA*(09/24/18 = UA Ketones) 5:46 PM) [facility] AND [id number] 23:46:00 Test Item Value Reference Range Interpretation Comments UA Bili (test code = Negative *NA*(09/24/18 UA Bili) 5:46 PM) [facility] AND [id number] 23:46:00 Test Item Value Reference Range Interpretation Comments UA Spec Grav (test >=1.030 *ABN*(09/24/18 code = UA Spec Grav) 5:46 PM) [facility] AND [id number] 23:46:00 Test Item Value Reference Range Interpretation Comments UA Glucose (test code Negative (09/24/18 5:46 = UA Glucose) PM) [facility] AND [id number] 23:46:00 Test Item Value Reference Range Interpretation Comments UA pH (test code = UA pH) 6.0 1 5.0-8.0 [facility] AND [id number] 23:46:00 Test Item Value Reference Range Interpretation Comments UA Turbidity (test code Cloudy *ABN*(09/24/18 = UA Turbidity) 5:46 PM) [facility] AND [id number] 23:46:00 Test Item Value Reference Range Interpretation Comments UA Protein (test code Negative (09/24/18 5:46 = UA Protein) PM) [facility] AND [id number] 23:46:00 Test Item Value Reference Range Interpretation Comments UA Color (test code = Yellow *NA*(09/24/18 UA Color) 5:46 PM) [facility] AND [id number] 23:46:00 Test Item Value Reference Range Interpretation Comments UA WBC (test code = UA WBC) 3-5 /HPF [facility] AND [id number] 23:46:00 Test Item Value Reference Range Interpretation Comments UA Sq Epi (test code = UA Sq Epi) Many /LPF [facility] [id number] 23:46:00 Test Item Value Reference Range Interpretation Comments UA Mucus (test code = UA Mucus) Many /LPF [facility] [id number] 23:46:00 Test Item Value Reference Range Interpretation Comments UA Bacteria (test code = UA Many /HPF Bacteria) [facility] [id number] 23:46:00 Test Item Value Reference Range Interpretation Comments UA RBC (test code = 3-5 /HPF See_Comment [Automa perico message] The UA RBC) system which ge nerated this result tra nsmitted reference range : <=2. The reference range was not used to interpr et this result as sincere l/abnormal. [facility] [id number] 23:46:00 Test Item Value Reference Range Interpretation Comments U Preg (test code = U Negative (09/24/18 5:46 Preg) PM) [id number] 23:46:00 Test Item Value Reference Range Interpretation Comments PTT (test code = PTT) 26.7 s 22.9-35.8 [facility] [id number] 23:46:00 Test Item Value Reference Range Interpretation Comments PT (test code = PT) 13.6 s 12.0-14.7 [id number] 23:46:00 Test Item Value Reference Range Interpretation Comments INR (test code = INR) 1.04 1 0.85-1.17 [facility] AND [id number] 23:46:00 Test Item Value Reference Range Interpretation Comments UA Nitrite (test code Negative (09/24/18 5:46 = UA Nitrite) PM) [facility] AND [id number] 23:46:00 Test Item Value Reference Range Interpretation Comments UA Leuk Est (test code Small *ABN*(09/24/18 = UA Leuk Est) 5:46 PM) [facility] AND [id number] 23:46:00 Test Item Value Reference Range Interpretation Comments UA Blood (test code = Large *ABN*(09/24/18 UA Blood) 5:46 PM) [facility] AND [id number] 23:46:00 Test Item Value Reference Range Interpretation Comments UA Urobilinogen (test code = UA 0.2 0.1-1.0 Urobilinogen) [facility] AND [id number] 23:46:00 Test Item Value Reference Range Interpretation Comments UA Ketones (test code Negative *NA*(09/24/18 = UA Ketones) 5:46 PM) [facility] AND [id number] 23:46:00 Test Item Value Reference Range Interpretation Comments UA Bili (test code = Negative *NA*(09/24/18 UA Bili) 5:46 PM) [facility] AND [id number] 23:46:00 Test Item Value Reference Range Interpretation Comments UA Spec Grav (test >=1.030 *ABN*(09/24/18 code = UA Spec Grav) 5:46 PM) [facility] AND [id number] 23:46:00 Test Item Value Reference Range Interpretation Comments UA Glucose (test code Negative (09/24/18 5:46 = UA Glucose) PM) [facility] AND [id number] 23:46:00 Test Item Value Reference Range Interpretation Comments UA pH (test code = UA pH) 6.0 1 5.0-8.0 [facility] AND [id number] 23:46:00 Test Item Value Reference Range Interpretation Comments UA Turbidity (test code Cloudy *ABN*(09/24/18 = UA Turbidity) 5:46 PM) [facility] AND [id number] 23:46:00 Test Item Value Reference Range Interpretation Comments UA Protein (test code Negative (09/24/18 5:46 = UA Protein) PM) [facility] AND [id number] 23:46:00 Test Item Value Reference Range Interpretation Comments UA Color (test code = Yellow *NA*(09/24/18 UA Color) 5:46 PM) [facility] AND [id number] 23:46:00 Test Item Value Reference Range Interpretation Comments UA WBC (test code = UA WBC) 3-5 /HPF [facility] AND [id number] 23:46:00 Test Item Value Reference Range Interpretation Comments UA Sq Epi (test code = UA Sq Epi) Many /LPF [facility] AND [id number] 23:46:00 Test Item Value Reference Range Interpretation Comments UA Mucus (test code = UA Mucus) Many /LPF [facility] AND [id number] 23:46:00 Test Item Value Reference Range Interpretation Comments UA Bacteria (test code = UA Many /HPF Bacteria) [facility] AND [id number] 23:46:00 Test Item Value Reference Range Interpretation Comments UA RBC (test code = 3-5 /HPF See_Comment [Automa perico message] The UA RBC) system which ge nerated this result tra nsmitted reference range : <=2. The reference range was not used to interpr et this result as sincere l/abnormal. [facility] [id number] 23:46:00 Test Item Value Reference Range Interpretation Comments U Preg (test code = U Negative (09/24/18 5:46 Preg) PM) [id number] 23:46:00 Test Item Value Reference Range Interpretation Comments PTT (test code = PTT) 26.7 s 22.9-35.8 [id number] 23:46:00 Test Item Value Reference Range Interpretation Comments PT (test code = PT) 13.6 s 12.0-14.7 [id number] 23:46:00 Test Item Value Reference Range Interpretation Comments INR (test code = INR) 1.04 1 0.85-1.17 [facility] AND [id number] 23:46:00 Test Item Value Reference Range Interpretation Comments UA Nitrite (test code Negative (09/24/18 5:46 = UA Nitrite) PM) [facility] AND [id number] 23:46:00 Test Item Value Reference Range Interpretation Comments UA Leuk Est (test code Small *ABN*(09/24/18 = UA Leuk Est) 5:46 PM) [facility] AND [id number] 23:46:00 Test Item Value Reference Range Interpretation Comments UA Blood (test code = Large *ABN*(09/24/18 UA Blood) 5:46 PM) [facility] AND [id number] 23:46:00 Test Item Value Reference Range Interpretation Comments UA Urobilinogen (test code = UA 0.2 0.1-1.0 Urobilinogen) [facility] AND [id number] 23:46:00 Test Item Value Reference Range Interpretation Comments UA Ketones (test code Negative *NA*(09/24/18 = UA Ketones) 5:46 PM) [facility] AND [id number] 23:46:00 Test Item Value Reference Range Interpretation Comments UA Bili (test code = Negative *NA*(09/24/18 UA Bili) 5:46 PM) [facility] AND [id number] 23:46:00 Test Item Value Reference Range Interpretation Comments UA Spec Grav (test >=1.030 *ABN*(09/24/18 code = UA Spec Grav) 5:46 PM) [facility] AND [id number] 23:46:00 Test Item Value Reference Range Interpretation Comments UA Glucose (test code Negative (09/24/18 5:46 = UA Glucose) PM) [facility] AND [id number] 23:46:00 Test Item Value Reference Range Interpretation Comments UA pH (test code = UA pH) 6.0 1 5.0-8.0 [facility] AND [id number] 23:46:00 Test Item Value Reference Range Interpretation Comments UA Turbidity (test code Cloudy *ABN*(09/24/18 = UA Turbidity) 5:46 PM) [facility] AND [id number] 23:46:00 Test Item Value Reference Range Interpretation Comments UA Protein (test code Negative (09/24/18 5:46 = UA Protein) PM) [facility] AND [id number] 23:46:00 Test Item Value Reference Range Interpretation Comments UA Color (test code = Yellow *NA*(09/24/18 UA Color) 5:46 PM) [facility] AND [id number] 23:46:00 Test Item Value Reference Range Interpretation Comments UA WBC (test code = UA WBC) 3-5 /HPF [facility] AND [id number] 23:46:00 Test Item Value Reference Range Interpretation Comments UA Sq Epi (test code = UA Sq Epi) Many /LPF [facility] AND [id number] 23:46:00 Test Item Value Reference Range Interpretation Comments UA Mucus (test code = UA Mucus) Many /LPF [facility] AND [id number] 23:46:00 Test Item Value Reference Range Interpretation Comments UA Bacteria (test code = UA Many /HPF Bacteria) [facility] AND [id number] 23:46:00 Test Item Value Reference Range Interpretation Comments UA RBC (test code = 3-5 /HPF See_Comment [Automa perico message] The UA RBC) system which ge nerated this result tra nsmitted reference range : <=2. The reference range was not used to interpr et this result as sincere l/abnormal. [facility] [id number] 23:46:00 Test Item Value Reference Range Interpretation Comments U Preg (test code = U Negative (09/24/18 5:46 Preg) PM) [id number] 23:46:00 Test Item Value Reference Range Interpretation Comments PTT (test code = PTT) 26.7 s 22.9-35.8 [id number] 23:46:00 Test Item Value Reference Range Interpretation Comments PT (test code = PT) 13.6 s 12.0-14.7 [facility] [id number] 23:46:00 Test Item Value Reference Range Interpretation Comments INR (test code = INR) 1.04 1 0.85-1.17 [facility] AND [id number] 23:46:00 Test Item Value Reference Range Interpretation Comments UA Nitrite (test code Negative (09/24/18 5:46 = UA Nitrite) PM) [facility] AND [id number] 23:46:00 Test Item Value Reference Range Interpretation Comments UA Leuk Est (test code Small *ABN*(09/24/18 = UA Leuk Est) 5:46 PM) [facility] AND [id number] 23:46:00 Test Item Value Reference Range Interpretation Comments UA Blood (test code = Large *ABN*(09/24/18 UA Blood) 5:46 PM) [facility] AND [id number] 23:46:00 Test Item Value Reference Range Interpretation Comments UA Urobilinogen (test code = UA 0.2 0.1-1.0 Urobilinogen) [facility] AND [id number] 23:46:00 Test Item Value Reference Range Interpretation Comments UA Ketones (test code Negative *NA*(09/24/18 = UA Ketones) 5:46 PM) [facility] [id number] 23:46:00 Test Item Value Reference Range Interpretation Comments UA Bili (test code = Negative *NA*(09/24/18 UA Bili) 5:46 PM) [facility] [id number] 23:46:00 Test Item Value Reference Range Interpretation Comments UA Spec Grav (test >=1.030 *ABN*(09/24/18 code = UA Spec Grav) 5:46 PM) [facility] [id number] 23:46:00 Test Item Value Reference Range Interpretation Comments UA Glucose (test code Negative (09/24/18 5:46 = UA Glucose) PM) [facility] AND [id number] 23:46:00 Test Item Value Reference Range Interpretation Comments UA pH (test code = UA pH) 6.0 1 5.0-8.0 [facility] [id number] 23:46:00 Test Item Value Reference Range Interpretation Comments UA Turbidity (test code Cloudy *ABN*(09/24/18 = UA Turbidity) 5:46 PM) [facility] AND [id number] 23:46:00 Test Item Value Reference Range Interpretation Comments UA Protein (test code Negative (09/24/18 5:46 = UA Protein) PM) [facility] AND [id number] 23:46:00 Test Item Value Reference Range Interpretation Comments UA Color (test code = Yellow *NA*(09/24/18 UA Color) 5:46 PM) [facility] [id number] 23:46:00 Test Item Value Reference Range Interpretation Comments UA WBC (test code = UA WBC) 3-5 /HPF [facility] [id number] 23:46:00 Test Item Value Reference Range Interpretation Comments UA Sq Epi (test code = UA Sq Epi) Many /LPF [facility] [id number] 23:46:00 Test Item Value Reference Range Interpretation Comments UA Mucus (test code = UA Mucus) Many /LPF [facility] [id number] 23:46:00 Test Item Value Reference Range Interpretation Comments UA Bacteria (test code = UA Many /HPF Bacteria) [facility] AND [id number] 23:46:00 Test Item Value Reference Range Interpretation Comments UA RBC (test code = UA RBC) 3-5 /HPF <=2 [facility] [id number] 23:46:00 Test Item Value Reference Range Interpretation Comments U Preg (test code = U Negative (09/24/18 5:46 Preg) PM) [facility]2018-11-12 23:33:00 Test Item Value Reference Range Interpretation Comments Phosphorus (test code = Phosphorus) 4.1 2.5-4.5 [facility]2018-11-12 23:33:00 Test Item Value Reference Range Interpretation Comments Magnesium Lvl (test code = Magnesium 1.9 1.8-2.4 Lvl) [facility]2018-11-12 23:33:00 Test Item Value Reference Range Interpretation Comments Lipase Lvl (test code = Lipase Lvl) 109 73-393 [facility]2018-11-12 23:33:00 Test Item Value Reference Range Interpretation Comments A/G Ratio (test code = A/G Ratio) 1.0 1 0.7-1.6 [facility]2018-11-12 23:33:00 Test Item Value Reference Range Interpretation Comments Globulin (test code = Globulin) 4.0 2.7-4.2 [facility]2018-11-12 23:33:00 Test Item Value Reference Range Interpretation Comments AGAP (test code = AGAP) 13.7 10.0-20.0 [facility]2018-11-12 23:33:00 Test Item Value Reference Range Interpretation Comments B/C Ratio (test code = B/C Ratio) 11 1 6-25 [facility]2018-11-12 23:33:00 Test Item Value Reference Range Interpretation Comments Bili Total (test code = Bili Total) 0.7 0.2-1.3 [facility]2018-11-12 23:33:00 Test Item Value Reference Range Interpretation Comments Alk Phos (test code = Alk Phos) 142 39-136 [facility]2018-11-12 23:33:00 Test Item Value Reference Range Interpretation Comments ALT (test code = ALT) 34 See_Comment [Auto mated message] The system which ge nerated this result transmit perico reference range : <=65. The reference range was not used to interpr et this result as sincere l/abnormal. [facility]2018-11-12 23:33:00 Test Item Value Reference Range Interpretation Comments AST (test code = AST) 22 See_Comment [Auto mated message] The system which ge nerated this result transmit perico reference range : <=37. The reference range was not used to interpr et this result as sincere l/abnormal. [place] [id number] 23:33:00 Test Item Value Reference Range Interpretation Comments Albumin Lvl (test code = Albumin Lvl) 3.9 3.5-5.0 [facility]2018-11-12 23:33:00 Test Item Value Reference Range Interpretation Comments Total Protein (test code = Total 7.9 6.4-8.4 Protein) [facility]2018-11-12 23:33:00 Test Item Value Reference Range Interpretation Comments eGFR (test code = eGFR) 131 [facility]2018-11-12 23:33:00 Test Item Value Reference Range Interpretation Comments Calcium Lvl (test code = Calcium Lvl) 9.1 8.5-10.5 [facility]2018-11-12 23:33:00 Test Item Value Reference Range Interpretation Comments CO2 (test code = CO2) 24 24-32 [facility]2018-11-12 23:33:00 Test Item Value Reference Range Interpretation Comments Chloride Lvl (test code = Chloride Lvl) 104 95-109 [facility]2018-11-12 23:33:00 Test Item Value Reference Range Interpretation Comments Potassium Lvl (test code = Potassium 3.7 3.5-5.1 Lvl) [facility]2018-11-12 23:33:00 Test Item Value Reference Range Interpretation Comments Sodium Lvl (test code = Sodium Lvl) 138 135-145 [facility]2018-11-12 23:33:00 Test Item Value Reference Range Interpretation Comments Glucose Lvl (test code = Glucose Lvl) 81 70-99 [facility]2018-11-12 23:33:00 Test Item Value Reference Range Interpretation Comments Creatinine Lvl (test code = Creatinine 0.63 0.50-1.40 Lvl) [facility]2018-11-12 23:33:00 Test Item Value Reference Range Interpretation Comments BUN (test code = BUN) 7 7-22 [facility]yujyfkDQGLHCCWHN3444-48-39 23:33:00 Test Item Value Reference Range Interpretation Comments Basophils # (test code 0.1 See_Comment [Aut omated message] The = Basophils #) system which generated this result tra nsmitted reference range : <=0.2. The reference r malcolm was not used to int erpret this result as normal/abnormal . [facility] HospitalCzvkpeoGZHRKOFSCT2553-80-25 23:33:00 Test Item Value Reference Range Interpretation Comments Monocytes # (test code 0.5 See_Comment [Aut omated message] The = Monocytes #) system which generated this result tra nsmitted reference range : <=0.8. The reference r malcolm was not used to int erpret this result as normal/abnormal . [facility]QqmhjfpSTADEFDLUT2058-14-31 23:33:00 Test Item Value Reference Range Interpretation Comments Eosinophils # (test code 0.3 See_Comment [A utomated message] The = Eosinophils #) system whic h generated this result tra nsmitted reference range : <=0.5. The reference r malcolm was not used to int erpret this result as normal/abnormal . [facility] HospitalRgbemnlNZXJZXBHVE8360-78-86 23:33:00 Test Item Value Reference Range Interpretation Comments Lymphocytes # (test code = Lymphocytes 2.3 1.0-5.5 #) [facility] HospitalXlpgotuQLQBNKFLYQ0182-01-72 23:33:00 Test Item Value Reference Range Interpretation Comments Basophils (test code = 0.9 See_Comment [Aut omated message] The Basophils) system which ge nerated this result tra nsmitted reference range : <=1.0. The reference r malcolm was not used to int erpret this result as normal/abnormal . [facility] HospitalXeybbcwVSNOCOPBOV1863-76-55 23:33:00 Test Item Value Reference Range Interpretation Comments Lymphocytes (test code = Lymphocytes) 27.9 20.0-40.0 [facility] HospitalEzcyiktIIECRMAHOZ8117-57-47 23:33:00 Test Item Value Reference Range Interpretation Comments Neutrophils # (test code = Neutrophils 4.9 1.5-8.1 #) [facility] HospitalOsjhimkJVGHXNZNMP4000-74-45 23:33:00 Test Item Value Reference Range Interpretation Comments Monocytes (test code = Monocytes) 6.4 2.0-12.0 [facility] HospitalVjvavfjJOQCMDMOHO2463-66-05 23:33:00 Test Item Value Reference Range Interpretation Comments Eosinophils (test code = 4.1 See_Comment [A utomated message] The Eosinophils) system which ge nerated this result tra nsmitted reference range : <=4.0. The reference r malcolm was not used to int erpret this result as normal/abnormal . [facility] HospitalTpbfnytTVHBXGXEXY5973-12-76 23:33:00 Test Item Value Reference Range Interpretation Comments Segs (test code = Segs) 60.7 45.0-75.0 [facility] HospitalEzfkyfzAKKIPTZQYA1209-15-66 23:33:00 Test Item Value Reference Range Interpretation Comments RDW (test code = RDW) 12.7 11.5-14.5 [facility] HospitalBysjnhrGUDAIRMJYA9687-29-07 23:33:00 Test Item Value Reference Range Interpretation Comments MCHC (test code = MCHC) 34.2 32.0-36.0 [facility] HospitalIdftkrsEYDGOWHERA5749-43-68 23:33:00 Test Item Value Reference Range Interpretation Comments Platelet (test code = Platelet) 204 133-450 [facility] HospitalFrcckshINYIRFVXHC8820-89-93 23:33:00 Test Item Value Reference Range Interpretation Comments MPV (test code = MPV) 9.1 7.4-10.4 [facility] HospitalYuvzplxXELOOFFIOW5286-64-39 23:33:00 Test Item Value Reference Range Interpretation Comments WBC (test code = WBC) 8.1 3.7-10.4 [facility] HospitalVkcuqtsLWZJHQHFPQ3254-09-68 23:33:00 Test Item Value Reference Range Interpretation Comments Hct (test code = Hct) 42.5 36.0-48.0 [facility] HospitalZonedbpATXNMXWXHQ4392-55-51 23:33:00 Test Item Value Reference Range Interpretation Comments MCV (test code = MCV) 87.8 80.0-98.0 [facility] HospitalScwaxdjNKKWGRQGUE4408-79-35 23:33:00 Test Item Value Reference Range Interpretation Comments Hgb (test code = Hgb) 14.5 12.0-16.0 [facility] HospitalKkvujbyWLHSGCEDXH3576-84-90 23:33:00 Test Item Value Reference Range Interpretation Comments RBC (test code = RBC) 4.84 4.20-5.40 [facility] HospitalOteziabGJUBTTTIGU6053-98-61 23:33:00 Test Item Value Reference Range Interpretation Comments MCH (test code = MCH) 30.0 pg 27.0-31.0 [facility]2018-11-12 23:33:00 Test Item Value Reference Range Interpretation Comments Phosphorus (test code = Phosphorus) 4.1 2.5-4.5 [facility]2018-11-12 23:33:00 Test Item Value Reference Range Interpretation Comments Magnesium Lvl (test code = Magnesium 1.9 1.8-2.4 Lvl) [facility]2018-11-12 23:33:00 Test Item Value Reference Range Interpretation Comments Lipase Lvl (test code = Lipase Lvl) 109 73-393 [facility]2018-11-12 23:33:00 Test Item Value Reference Range Interpretation Comments A/G Ratio (test code = A/G Ratio) 1.0 1 0.7-1.6 [facility]2018-11-12 23:33:00 Test Item Value Reference Range Interpretation Comments Globulin (test code = Globulin) 4.0 2.7-4.2 [facility]2018-11-12 23:33:00 Test Item Value Reference Range Interpretation Comments AGAP (test code = AGAP) 13.7 10.0-20.0 [facility]2018-11-12 23:33:00 Test Item Value Reference Range Interpretation Comments B/C Ratio (test code = B/C Ratio) 11 1 6-25 [facility]2018-11-12 23:33:00 Test Item Value Reference Range Interpretation Comments Bili Total (test code = Bili Total) 0.7 0.2-1.3 [facility]2018-11-12 23:33:00 Test Item Value Reference Range Interpretation Comments Alk Phos (test code = Alk Phos) 142 39-136 [facility]2018-11-12 23:33:00 Test Item Value Reference Range Interpretation Comments ALT (test code = ALT) 34 See_Comment [Auto mated message] The system which ge nerated this result transmit perico reference range : <=65. The reference range was not used to interpr et this result as sincere l/abnormal. [facility]2018-11-12 23:33:00 Test Item Value Reference Range Interpretation Comments AST (test code = AST) 22 See_Comment [Auto mated message] The system which ge nerated this result transmit perico reference range : <=37. The reference range was not used to interpr et this result as sincere l/abnormal. [facility]2018-11-12 23:33:00 Test Item Value Reference Range Interpretation Comments Albumin Lvl (test code = Albumin Lvl) 3.9 3.5-5.0 [facility]2018-11-12 23:33:00 Test Item Value Reference Range Interpretation Comments Total Protein (test code = Total 7.9 6.4-8.4 Protein) [facility]2018-11-12 23:33:00 Test Item Value Reference Range Interpretation Comments eGFR (test code = eGFR) 131 [facility]2018-11-12 23:33:00 Test Item Value Reference Range Interpretation Comments Calcium Lvl (test code = Calcium Lvl) 9.1 8.5-10.5 [facility]2018-11-12 23:33:00 Test Item Value Reference Range Interpretation Comments CO2 (test code = CO2) 24 24-32 [facility]2018-11-12 23:33:00 Test Item Value Reference Range Interpretation Comments Chloride Lvl (test code = Chloride Lvl) 104 95-109 [facility]2018-11-12 23:33:00 Test Item Value Reference Range Interpretation Comments Potassium Lvl (test code = Potassium 3.7 3.5-5.1 Lvl) [facility]2018-11-12 23:33:00 Test Item Value Reference Range Interpretation Comments Sodium Lvl (test code = Sodium Lvl) 138 135-145 [facility]2018-11-12 23:33:00 Test Item Value Reference Range Interpretation Comments Glucose Lvl (test code = Glucose Lvl) 81 70-99 [facility]2018-11-12 23:33:00 Test Item Value Reference Range Interpretation Comments Creatinine Lvl (test code = Creatinine 0.63 0.50-1.40 Lvl) [facility]2018-11-12 23:33:00 Test Item Value Reference Range Interpretation Comments BUN (test code = BUN) 7 7-22 [facility] HospitalKfethpnZZXYCSRZHW0396-64-58 23:33:00 Test Item Value Reference Range Interpretation Comments Basophils # (test code 0.1 See_Comment [Aut omated message] The = Basophils #) system which generated this result tra nsmitted reference range : <=0.2. The reference r malcolm was not used to int erpret this result as normal/abnormal . [facility] HospitalMiwfivxTXSIHDLHFI7277-08-64 23:33:00 Test Item Value Reference Range Interpretation Comments Monocytes # (test code 0.5 See_Comment [Aut omated message] The = Monocytes #) system which generated this result tra nsmitted reference range : <=0.8. The reference r malcolm was not used to int erpret this result as normal/abnormal . [facility] HospitalPdesvotMVYHHVTMCV2947-41-86 23:33:00 Test Item Value Reference Range Interpretation Comments Eosinophils # (test code 0.3 See_Comment [A utomated message] The = Eosinophils #) system whic h generated this result tra nsmitted reference range : <=0.5. The reference r malcolm was not used to int erpret this result as normal/abnormal . [facility] HospitalSdwulckHNVVKBPLHC5103-28-13 23:33:00 Test Item Value Reference Range Interpretation Comments Lymphocytes # (test code = Lymphocytes 2.3 1.0-5.5 #) [facility] HospitalVixhbksOPNNHIFDSN1392-72-00 23:33:00 Test Item Value Reference Range Interpretation Comments Basophils (test code = 0.9 See_Comment [Aut omated message] The Basophils) system which ge nerated this result tra nsmitted reference range : <=1.0. The reference r malcolm was not used to int erpret this result as normal/abnormal . [facility] HospitalWsegemzVEEDNWHGKS5692-88-50 23:33:00 Test Item Value Reference Range Interpretation Comments Lymphocytes (test code = Lymphocytes) 27.9 20.0-40.0 [place] 462278-11-12 23:33:00 Test Item Value Reference Range Interpretation Comments Neutrophils # (test code = Neutrophils 4.9 1.5-8.1 #) [facility] HospitalEloxyyjGVCMSTIEIB2629-78-25 23:33:00 Test Item Value Reference Range Interpretation Comments Monocytes (test code = Monocytes) 6.4 2.0-12.0 [facility] HospitalXobmnamZCJCYJMBJO4578-60-52 23:33:00 Test Item Value Reference Range Interpretation Comments Eosinophils (test code = 4.1 See_Comment [A utomated message] The Eosinophils) system which ge nerated this result tra nsmitted reference range : <=4.0. The reference r malcolm was not used to int erpret this result as normal/abnormal . [facility] HospitalXffosaeJLZGRXOJLK3096-06-54 23:33:00 Test Item Value Reference Range Interpretation Comments Segs (test code = Segs) 60.7 45.0-75.0 [facility] HospitalAdlzixvPXPPJVOWNW8422-66-99 23:33:00 Test Item Value Reference Range Interpretation Comments RDW (test code = RDW) 12.7 11.5-14.5 [facility] HospitalQjgpegnRULJFTZGBG2648-94-03 23:33:00 Test Item Value Reference Range Interpretation Comments MCHC (test code = MCHC) 34.2 32.0-36.0 [facility] HospitalReytgznXNBADTKUTE8466-92-64 23:33:00 Test Item Value Reference Range Interpretation Comments Platelet (test code = Platelet) 204 133-450 [facility] HospitalGzsphcqJULDDCZYAS5903-63-76 23:33:00 Test Item Value Reference Range Interpretation Comments MPV (test code = MPV) 9.1 7.4-10.4 [facility] HospitalOeujhesMTULLEVCZC7016-84-58 23:33:00 Test Item Value Reference Range Interpretation Comments WBC (test code = WBC) 8.1 3.7-10.4 [facility] HospitalHndjtjfNAODQZVZCL6460-55-99 23:33:00 Test Item Value Reference Range Interpretation Comments Hct (test code = Hct) 42.5 36.0-48.0 [facility] HospitalRwydwnxHHBCDGWGAP1168-06-32 23:33:00 Test Item Value Reference Range Interpretation Comments MCV (test code = MCV) 87.8 80.0-98.0 [facility] HospitalLqsoliaUIPIWWHXPA9075-46-07 23:33:00 Test Item Value Reference Range Interpretation Comments Hgb (test code = Hgb) 14.5 12.0-16.0 [facility] HospitalUqcanvyISHRMKJSVC6758-72-69 23:33:00 Test Item Value Reference Range Interpretation Comments RBC (test code = RBC) 4.84 4.20-5.40 [facility]QewteogNODHKEIQGQ6118-64-61 23:33:00 Test Item Value Reference Range Interpretation Comments MCH (test code = MCH) 30.0 pg 27.0-31.0 [facility]2018-11-12 23:33:00 Test Item Value Reference Range Interpretation Comments Phosphorus (test code = Phosphorus) 4.1 2.5-4.5 [facility]2018-11-12 23:33:00 Test Item Value Reference Range Interpretation Comments Magnesium Lvl (test code = Magnesium 1.9 1.8-2.4 Lvl) [facility]2018-11-12 23:33:00 Test Item Value Reference Range Interpretation Comments Lipase Lvl (test code = Lipase Lvl) 109 73-393 [facility]2018-11-12 23:33:00 Test Item Value Reference Range Interpretation Comments A/G Ratio (test code = A/G Ratio) 1.0 1 0.7-1.6 [facility]2018-11-12 23:33:00 Test Item Value Reference Range Interpretation Comments Globulin (test code = Globulin) 4.0 2.7-4.2 [facility]2018-11-12 23:33:00 Test Item Value Reference Range Interpretation Comments AGAP (test code = AGAP) 13.7 10.0-20.0 [facility]2018-11-12 23:33:00 Test Item Value Reference Range Interpretation Comments B/C Ratio (test code = B/C Ratio) 11 1 6-25 [facility]2018-11-12 23:33:00 Test Item Value Reference Range Interpretation Comments Bili Total (test code = Bili Total) 0.7 0.2-1.3 [facility]2018-11-12 23:33:00 Test Item Value Reference Range Interpretation Comments Alk Phos (test code = Alk Phos) 142 39-136 [facility]2018-11-12 23:33:00 Test Item Value Reference Range Interpretation Comments ALT (test code = ALT) 34 See_Comment [Auto mated message] The system which ge nerated this result transmit perico reference range : <=65. The reference range was not used to interpr et this result as sincere l/abnormal. [facility]2018-11-12 23:33:00 Test Item Value Reference Range Interpretation Comments AST (test code = AST) 22 See_Comment [Auto mated message] The system which ge nerated this result transmit perico reference range : <=37. The reference range was not used to interpr et this result as sincere l/abnormal. [facility]2018-11-12 23:33:00 Test Item Value Reference Range Interpretation Comments Albumin Lvl (test code = Albumin Lvl) 3.9 3.5-5.0 [facility]2018-11-12 23:33:00 Test Item Value Reference Range Interpretation Comments Total Protein (test code = Total 7.9 6.4-8.4 Protein) [facility]2018-11-12 23:33:00 Test Item Value Reference Range Interpretation Comments eGFR (test code = eGFR) 131 [facility]2018-11-12 23:33:00 Test Item Value Reference Range Interpretation Comments Calcium Lvl (test code = Calcium Lvl) 9.1 8.5-10.5 [facility]2018-11-12 23:33:00 Test Item Value Reference Range Interpretation Comments CO2 (test code = CO2) 24 24-32 [facility]2018-11-12 23:33:00 Test Item Value Reference Range Interpretation Comments Chloride Lvl (test code = Chloride Lvl) 104 95-109 [facility]2018-11-12 23:33:00 Test Item Value Reference Range Interpretation Comments Potassium Lvl (test code = Potassium 3.7 3.5-5.1 Lvl) [facility]2018-11-12 23:33:00 Test Item Value Reference Range Interpretation Comments Sodium Lvl (test code = Sodium Lvl) 138 135-145 [facility]2018-11-12 23:33:00 Test Item Value Reference Range Interpretation Comments Glucose Lvl (test code = Glucose Lvl) 81 70-99 [facility]2018-11-12 23:33:00 Test Item Value Reference Range Interpretation Comments Creatinine Lvl (test code = Creatinine 0.63 0.50-1.40 Lvl) [facility]2018-11-12 23:33:00 Test Item Value Reference Range Interpretation Comments BUN (test code = BUN) 7 7-22 [facility] HospitalScjlwyjQQVDCDOYAJ3977-61-24 23:33:00 Test Item Value Reference Range Interpretation Comments Basophils # (test code 0.1 See_Comment [Aut omated message] The = Basophils #) system which generated this result tra nsmitted reference range : <=0.2. The reference r malcolm was not used to int erpret this result as normal/abnormal . [facility] HospitalIzwoxlgIGTQTAILTJ3037-73-82 23:33:00 Test Item Value Reference Range Interpretation Comments Monocytes # (test code 0.5 See_Comment [Aut omated message] The = Monocytes #) system which generated this result tra nsmitted reference range : <=0.8. The reference r malcolm was not used to int erpret this result as normal/abnormal . [facility] HospitalSualuycNTPORQEKTX3920-26-68 23:33:00 Test Item Value Reference Range Interpretation Comments Eosinophils # (test code 0.3 See_Comment [A utomated message] The = Eosinophils #) system whic h generated this result tra nsmitted reference range : <=0.5. The reference r malcolm was not used to int erpret this result as normal/abnormal . [facility] HospitalGubesziUMBGILHPAA0827-17-96 23:33:00 Test Item Value Reference Range Interpretation Comments Lymphocytes # (test code = Lymphocytes 2.3 1.0-5.5 #) [facility] HospitalSrflafvJAJSLSCZIL5602-47-61 23:33:00 Test Item Value Reference Range Interpretation Comments Basophils (test code = 0.9 See_Comment [Aut omated message] The Basophils) system which ge nerated this result tra nsmitted reference range : <=1.0. The reference r malcolm was not used to int erpret this result as normal/abnormal . [facility] HospitalMwogcxeAEYDPGWJUP9591-42-03 23:33:00 Test Item Value Reference Range Interpretation Comments Lymphocytes (test code = Lymphocytes) 27.9 20.0-40.0 [facility] HospitalBgvahdrEMVRJBLRBY9608-08-12 23:33:00 Test Item Value Reference Range Interpretation Comments Neutrophils # (test code = Neutrophils 4.9 1.5-8.1 #) [facility] HospitalWpvrpfwWUNSDGERRI0771-70-74 23:33:00 Test Item Value Reference Range Interpretation Comments Monocytes (test code = Monocytes) 6.4 2.0-12.0 [facility] HospitalAtkpxjhEPVVNWXRWA5033-35-72 23:33:00 Test Item Value Reference Range Interpretation Comments Eosinophils (test code = 4.1 See_Comment [A utomated message] The Eosinophils) system which ge nerated this result tra nsmitted reference range : <=4.0. The reference r malcolm was not used to int erpret this result as normal/abnormal . [facility] HospitalVkefveoHYKHRDIDCI1386-49-84 23:33:00 Test Item Value Reference Range Interpretation Comments Segs (test code = Segs) 60.7 45.0-75.0 [facility] HospitalHipucqyCALHGGFBGQ7059-92-29 23:33:00 Test Item Value Reference Range Interpretation Comments RDW (test code = RDW) 12.7 11.5-14.5 [facility] HospitalVpmtcvqWNRVCJGEOM3357-40-22 23:33:00 Test Item Value Reference Range Interpretation Comments MCHC (test code = MCHC) 34.2 32.0-36.0 [facility] HospitalPmqmaopTGSAEJFYBT4996-86-72 23:33:00 Test Item Value Reference Range Interpretation Comments Platelet (test code = Platelet) 204 133-450 [facility] HospitalBpuiectZCTLXAQNUP7936-51-46 23:33:00 Test Item Value Reference Range Interpretation Comments MPV (test code = MPV) 9.1 7.4-10.4 [facility] HospitalPtotrlfRAAAMCMEBH5252-97-96 23:33:00 Test Item Value Reference Range Interpretation Comments WBC (test code = WBC) 8.1 3.7-10.4 [facility] HospitalLljseleMDXURKMIHQ3568-88-42 23:33:00 Test Item Value Reference Range Interpretation Comments Hct (test code = Hct) 42.5 36.0-48.0 [facility] HospitalDaxteovLBGZSCZIMI5191-63-76 23:33:00 Test Item Value Reference Range Interpretation Comments MCV (test code = MCV) 87.8 80.0-98.0 [facility] HospitalBacaaufXZKPKTWONK8002-02-02 23:33:00 Test Item Value Reference Range Interpretation Comments Hgb (test code = Hgb) 14.5 12.0-16.0 [facility] HospitalVakdznlNZVYGTNXHP4434-64-64 23:33:00 Test Item Value Reference Range Interpretation Comments RBC (test code = RBC) 4.84 4.20-5.40 [facility] HospitalUddvysuUCREDBJIPW7431-93-33 23:33:00 Test Item Value Reference Range Interpretation Comments MCH (test code = MCH) 30.0 pg 27.0-31.0 [facility]2018-11-12 23:33:00 Test Item Value Reference Range Interpretation Comments Phosphorus (test code = Phosphorus) 4.1 2.5-4.5 [facility]2018-11-12 23:33:00 Test Item Value Reference Range Interpretation Comments Magnesium Lvl (test code = Magnesium 1.9 1.8-2.4 Lvl) [facility]2018-11-12 23:33:00 Test Item Value Reference Range Interpretation Comments Lipase Lvl (test code = Lipase Lvl) 109 73-393 [facility]2018-11-12 23:33:00 Test Item Value Reference Range Interpretation Comments A/G Ratio (test code = A/G Ratio) 1.0 1 0.7-1.6 [facility]2018-11-12 23:33:00 Test Item Value Reference Range Interpretation Comments Globulin (test code = Globulin) 4.0 2.7-4.2 [facility]2018-11-12 23:33:00 Test Item Value Reference Range Interpretation Comments AGAP (test code = AGAP) 13.7 10.0-20.0 [facility]2018-11-12 23:33:00 Test Item Value Reference Range Interpretation Comments B/C Ratio (test code = B/C Ratio) 11 1 6-25 [facility]2018-11-12 23:33:00 Test Item Value Reference Range Interpretation Comments Bili Total (test code = Bili Total) 0.7 0.2-1.3 [facility]2018-11-12 23:33:00 Test Item Value Reference Range Interpretation Comments Alk Phos (test code = Alk Phos) 142 39-136 [facility]2018-11-12 23:33:00 Test Item Value Reference Range Interpretation Comments ALT (test code = ALT) 34 <=65 [facility]2018-11-12 23:33:00 Test Item Value Reference Range Interpretation Comments AST (test code = AST) 22 <=37 [place] 625658-11-12 23:33:00 Test Item Value Reference Range Interpretation Comments Albumin Lvl (test code = Albumin Lvl) 3.9 3.5-5.0 [facility] between [facility]2018-11-12 23:33:00 Test Item Value Reference Range Interpretation Comments Total Protein (test code = Total 7.9 6.4-8.4 Protein) [facility]2018-11-12 23:33:00 Test Item Value Reference Range Interpretation Comments eGFR (test code = eGFR) 131 [facility]2018-11-12 23:33:00 Test Item Value Reference Range Interpretation Comments Calcium Lvl (test code = Calcium Lvl) 9.1 8.5-10.5 [place] 625658-11-12 23:33:00 Test Item Value Reference Range Interpretation Comments CO2 (test code = CO2) 24 24-32 [facility]2018-11-12 23:33:00 Test Item Value Reference Range Interpretation Comments Chloride Lvl (test code = Chloride Lvl) 104 95-109 [facility]2018-11-12 23:33:00 Test Item Value Reference Range Interpretation Comments Potassium Lvl (test code = Potassium 3.7 3.5-5.1 Lvl) [facility]2018-11-12 23:33:00 Test Item Value Reference Range Interpretation Comments Sodium Lvl (test code = Sodium Lvl) 138 135-145 [facility]2018-11-12 23:33:00 Test Item Value Reference Range Interpretation Comments Glucose Lvl (test code = Glucose Lvl) 81 70-99 [facility]2018-11-12 23:33:00 Test Item Value Reference Range Interpretation Comments Creatinine Lvl (test code = Creatinine 0.63 0.50-1.40 Lvl) [facility]2018-11-12 23:33:00 Test Item Value Reference Range Interpretation Comments BUN (test code = BUN) 7 7-22 [facility]LjvatbmQYFLTQSJGY8810[facility] 23:33:00 Test Item Value Reference Range Interpretation Comments Basophils # (test code = Basophils #) 0.1 <=0.2 [facility] HospitalDkzoziiPDTELFPVQL7527-12-45 23:33:00 Test Item Value Reference Range Interpretation Comments Monocytes # (test code = Monocytes #) 0.5 <=0.8 [place] 462278-11-12 23:33:00 Test Item Value Reference Range Interpretation Comments Eosinophils # (test code = Eosinophils 0.3 <=0.5 #) [facility]CiivfwcXKFOOPNHFF4725-01-18 23:33:00 Test Item Value Reference Range Interpretation Comments Lymphocytes # (test code = Lymphocytes 2.3 1.0-5.5 #) [facility] HospitalYordxnwKJGECZWHGA5323-15-34 23:33:00 Test Item Value Reference Range Interpretation Comments Basophils (test code = Basophils) 0.9 <=1.0 [facility] HospitalTeibfrlOTPFBHDQGW7550-82-81 23:33:00 Test Item Value Reference Range Interpretation Comments Lymphocytes (test code = Lymphocytes) 27.9 20.0-40.0 [facility] HospitalWgnqpfcQJVUKAKZHX3966-76-78 23:33:00 Test Item Value Reference Range Interpretation Comments Neutrophils # (test code = Neutrophils 4.9 1.5-8.1 #) [facility] HospitalJzuwlqhKKQBXBNDYS0768-98-48 23:33:00 Test Item Value Reference Range Interpretation Comments Monocytes (test code = Monocytes) 6.4 2.0-12.0 [facility] HospitalXfbvlmqHUJLDIGMGB3212-33-15 23:33:00 Test Item Value Reference Range Interpretation Comments Eosinophils (test code = Eosinophils) 4.1 <=4.0 [facility] HospitalZmozmufYTVONQTLWN5371-58-56 23:33:00 Test Item Value Reference Range Interpretation Comments Segs (test code = Segs) 60.7 45.0-75.0 [facility] HospitalTfsvisdJKSNJKXJQV1522-63-94 23:33:00 Test Item Value Reference Range Interpretation Comments RDW (test code = RDW) 12.7 11.5-14.5 [facility] HospitalMlwzeclOJQQSVECTV2794-47-25 23:33:00 Test Item Value Reference Range Interpretation Comments MCHC (test code = MCHC) 34.2 32.0-36.0 [facility] HospitalXtrumkkWJHUCZKBPN9056-77-07 23:33:00 Test Item Value Reference Range Interpretation Comments Platelet (test code = Platelet) 204 133-450 [facility] HospitalRufmcrlDEBTZQHUVP3235-15-42 23:33:00 Test Item Value Reference Range Interpretation Comments MPV (test code = MPV) 9.1 7.4-10.4 [facility] HospitalGwvvnojRUHUMCXOJK7368-71-44 23:33:00 Test Item Value Reference Range Interpretation Comments WBC (test code = WBC) 8.1 3.7-10.4 [facility] HospitalIcingcuGFRWGWUKOL3714-75-34 23:33:00 Test Item Value Reference Range Interpretation Comments Hct (test code = Hct) 42.5 36.0-48.0 [facility] HospitalHuidjgtUPGLCRCCJX1630-79-61 23:33:00 Test Item Value Reference Range Interpretation Comments MCV (test code = MCV) 87.8 80.0-98.0 [facility] HospitalRqckhxrVOJXUCQTOV8479-11-61 23:33:00 Test Item Value Reference Range Interpretation Comments Hgb (test code = Hgb) 14.5 12.0-16.0 [facility] HospitalNspatuqQAFEBKCEYP3715-83-21 23:33:00 Test Item Value Reference Range Interpretation Comments RBC (test code = RBC) 4.84 4.20-5.40 [facility] HospitalZzdeljrBWBXLTHOUR1008-53-78 23:33:00 Test Item Value Reference Range Interpretation Comments MCH (test code = MCH) 30.0 pg 27.0-31.0 [facility]] CBC (INCLUDES DIFF/PLT)2018-07-31 15:19:01 Test Item Value Reference Range Interpretation Comments WBC (test code = 6690-2) 9.2 {K/CMM} 3.7-10.4 RBC (test code = 789-8) 4.77 {M/CMM} 4.20-5.40 Hgb (test code = 718-7) 14.2 g/dl 12.0-16.0 Hct (test code = 84914-9) 42.3 % 36.0-48.0 MCV (test code = 787-2) 88.6 fL 80.0-98.0 MCH (test code = 785-6) 29.7 pg 27.0-31.0 MCHC (test code = 786-4) 33.5 g/dl 32.0-36.0 RDW (test code = 788-0) 13.3 % 11.5-14.5 Platelet (test code = 24527-2) 233 {K/CMM} 133-450 Mean Platelet Volume (test code 9.7 fL 7.4-10.4 = 79295-0) [facility]] CMP W/PQWZ2364-28-54 15:19:01 Test Item Value Reference Range Interpretation Comments Sodium Level 139 {mEq/l} 135-145 (test code = 2951-2) Potassium Level 4.0 {mEq/l} 3.5-5.1 (test code = 2823-3) Chloride Level 109 {mEq/l} 95-109 (test code = 2075-0) Carbon Dioxide; 19 {mEq/l} 24-32 Below Low Threshold (test code = 8-9) AGAP (test code = 15.0 {mEq/l} 10.0-20.0 98738-9) Glucose Lvl (test 84 mg/dl 70-99 Adult refe rence range code = 2345-7) values reflec t the clinical guidel inesof the [place] Diabet es Association. Creatinine Lvl 0.60 mg/dl 0.50-1.40 (test code = 2160-0) Blood Urea 10 mg/dl 7-22 Nitrogen (test code = 3094-0) BUN/Creatinine 17 6-25 Ratio (test code = 3097-3) Total Protein; 8.5 g/dl 6.4-8.4 Above High Threshold (test code = 2885-2) Albumin Lvl (test 3.9 g/dl 3.5-5.0 code = 1751-7) Globulin; Above 4.6 g/dl 2.7-4.2 High Threshold (test code = 89839-2) A/G Ratio (test 0.8 0.7-1.6 code = 1759-0) Calcium Level 9.3 mg/dl 8.5-10.5 Total (test code = 10616-6) ALT; Above High 70 u/l 0-65 Threshold (test code = 1743-4) AST (test code = 28 u/l 0-37 22908-0) Alk Phos; Above 145 u/l 39-136 High Threshold (test code = 1783-0) Bili Total (test 0.8 mg/dl 0.2-1.3 code = 1974-) eGFR (test code = 134 The eGFR i s calculated 98937-0) {ML/MIN/1.7} using the CKD-E PI formula. In [...] fr om the National Kidney Disease Education [facility] am(NKDEP) which lena andersen recommends that when the eGFR is used in patientswith ex tremes of body mass index for purposes of sepideh g dosing, the eGFR should be multiplied by t he estimated BMI. [facility]] Xvyqxpnmrvbz8134-87-85 15:19:01 Test Item Value Reference Range Interpretation Comments Segmented Neutrophils (test code 63.3 % 45.0-75.0 = 53790-6) Monocytes (test code = 12110-7) 7.6 % 2.0-12.0 Lymphocytes (test code = 03794-1) 27.4 % 20.0-40.0 Eosinophils (test code = 21661-9) 1.2 % 0.0-4.0 Basophils (test code = 706-2) 0.5 % 0.0-1.0 Segs-Bands # (test code = 5.8 {K/CMM} 1.5-8.1 87126-8) Lymphocytes # (test code = 2.5 {K/CMM} 1.0-5.5 97890-1) Monocytes # (test code = 18117-3) 0.7 {K/CMM} 0.0-0.8 Eosinophils # (test code = 0.1 {K/CMM} 0.0-0.5 51460-2) [facility][O] Urine Dipstick (In Office)2017-12-19 11:53:00 Test Item Value Reference Range Interpretation Comments LEUKOCYTES (test code = LEUKOCYTES) neg N NITRITE; Normal (test code = 88263-0) neg N UROBILINOGEN; Normal (test code = 1.0 N 03455-9) PROTEIN; Normal (test code = 82533-5) neg N pH (test code = pH) 7.0 N URINE BLOOD; Normal (test code = neg N 71652-4) SPECIFIC GRAVITY; Normal (test code = 1.020 N 2965-2) KETONES; Normal (test code = 52827-6) neg N BILIRUBIN; Normal (test code = 13776-5) neg N GLUCOSE; Normal (test code = 1547-9) neg N [facility]iciansTobacco Use Boolbrgvx1406-66-36 15:40:00 Test Item Value Reference Range Interpretation Comments Completed (test code = Completed) DONE [facility]2017-11-30 15:42:00 Test Item Value Reference Range Interpretation Comments Lipase Lvl (test code = Lipase Lvl) 110 73-393 [facility]2017-11-30 15:42:00 Test Item Value Reference Range Interpretation Comments eGFR (test code = eGFR) See Comment [facility]2017-11-30 15:42:00 Test Item Value Reference Range Interpretation Comments Calcium Lvl (test code = Calcium Lvl) 9.0 8.5-10.5 [facility]2017-11-30 15:42:00 Test Item Value Reference Range Interpretation Comments Albumin Lvl (test code = Albumin Lvl) 3.7 3.5-5.0 [facility]2017-11-30 15:42:00 Test Item Value Reference Range Interpretation Comments ALT (test code = ALT) 22 See_Comment [Auto mated message] The system which ge nerated this result transmit perico reference range : <=65. The reference range was not used to interpr et this result as sincere l/abnormal. [facility]2017-11-30 15:42:00 Test Item Value Reference Range Interpretation Comments Total Protein (test code = Total 7.9 6.4-8.4 Protein) [facility]2017-11-30 15:42:00 Test Item Value Reference Range Interpretation Comments Alk Phos (test code = Alk Phos) 135 39-136 [facility]2017-11-30 15:42:00 Test Item Value Reference Range Interpretation Comments AST (test code = AST) 36 See_Comment [Auto mated message] The system which ge nerated this result transmit perico reference range : <=37. The reference range was not used to interpr et this result as sincere l/abnormal. [facility]2017-11-30 15:42:00 Test Item Value Reference Range Interpretation Comments Bili Total (test code = Bili Total) 0.8 0.2-1.3 [facility]2017-11-30 15:42:00 Test Item Value Reference Range Interpretation Comments Creatinine Lvl (test code = Creatinine 0.57 0.50-1.40 Lvl) [facility]2017-11-30 15:42:00 Test Item Value Reference Range Interpretation Comments Potassium Lvl (test code = Potassium 4.7 3.5-5.1 Lvl) [facility]2017-11-30 15:42:00 Test Item Value Reference Range Interpretation Comments Sodium Lvl (test code = Sodium Lvl) 139 135-145 [facility]2017-11-30 15:42:00 Test Item Value Reference Range Interpretation Comments Chloride Lvl (test code = Chloride Lvl) 108 95-109 [facility]2017-11-30 15:42:00 Test Item Value Reference Range Interpretation Comments CO2 (test code = CO2) 23 24-32 [facility]2017-11-30 15:42:00 Test Item Value Reference Range Interpretation Comments BUN (test code = BUN) 7 7-22 [facility]2017-11-30 15:42:00 Test Item Value Reference Range Interpretation Comments Glucose Lvl (test code = Glucose Lvl) 94 70-99 [facility]2017-11-30 15:42:00 Test Item Value Reference Range Interpretation Comments Globulin (test code = Globulin) 4.2 2.7-4.2 [facility]2017-11-30 15:42:00 Test Item Value Reference Range Interpretation Comments A/G Ratio (test code = A/G Ratio) 0.9 0.7-1.6 [facility]2017-11-30 15:42:00 Test Item Value Reference Range Interpretation Comments AGAP (test code = AGAP) 12.7 10.0-20.0 [facility]2017-11-30 15:42:00 Test Item Value Reference Range Interpretation Comments B/C Ratio (test code = B/C Ratio) 12 6-25 [facility]ZbmyqpdFXLVSSYTPEZOA5441-98-52 15:42:00 Test Item Value Reference Range Interpretation Comments S Preg (test code = S Negative *NA*(10/12/17 Preg) 9:42 AM) [facility] HospitalAiodslxSFRMVUKPHL8401-73-85 15:42:00 Test Item Value Reference Range Interpretation Comments Lymphocytes (test code = Lymphocytes) 24.1 20.0-40.0 [facility] HospitalHwfnystTKDKRAUOSD2655-97-32 15:42:00 Test Item Value Reference Range Interpretation Comments Segs (test code = Segs) 67.6 45.0-75.0 [facility] HospitalFkvzlamCZLYNEXGXQ8954-77-88 15:42:00 Test Item Value Reference Range Interpretation Comments Basophils # (test code 0.1 See_Comment [Aut omated message] The = Basophils #) system which generated this result tra nsmitted reference range : <=0.2. The reference r malcolm was not used to int erpret this result as normal/abnormal . [facility] HospitalPzlmcbcVOPDWFJJIH9081-08-15 15:42:00 Test Item Value Reference Range Interpretation Comments Segs-Bands # (test code = Segs-Bands #) 5.4 1.5-8.1 [facility] HospitalNryojjsAXBKBKPCAN0520-79-73 15:42:00 Test Item Value Reference Range Interpretation Comments Basophils (test code = 0.8 See_Comment [Aut omated message] The Basophils) system which ge nerated this result tra nsmitted reference range : <=1.0. The reference r malcolm was not used to int erpret this result as normal/abnormal . [facility] HospitalOsczlppLNZBHXEJCJ9582-09-54 15:42:00 Test Item Value Reference Range Interpretation Comments Eosinophils (test code = 0.6 See_Comment [A utomated message] The Eosinophils) system which ge nerated this result tra nsmitted reference range : <=4.0. The reference r malcolm was not used to int erpret this result as normal/abnormal . [facility] HospitalZsenzyvBDXGMRTZUJ2333-56-85 15:42:00 Test Item Value Reference Range Interpretation Comments Monocytes (test code = Monocytes) 6.9 2.0-12.0 [facility] HospitalZorwjrsCYJAKOREBA8194-33-43 15:42:00 Test Item Value Reference Range Interpretation Comments Monocytes # (test code 0.6 See_Comment [Aut omated message] The = Monocytes #) system which generated this result tra nsmitted reference range : <=0.8. The reference r malcolm was not used to int erpret this result as normal/abnormal . [facility] HospitalUyjxsosPAYEIGAMWR2200-11-61 15:42:00 Test Item Value Reference Range Interpretation Comments Lymphocytes # (test code = Lymphocytes 1.9 1.0-5.5 #) [facility] HospitalFnaxantEBANGHYVJN3742-04-49 15:42:00 Test Item Value Reference Range Interpretation Comments MPV (test code = MPV) 9.4 7.4-10.4 [facility] HospitalSjwotphAOJSNHUNBO1870-83-40 15:42:00 Test Item Value Reference Range Interpretation Comments MCHC (test code = MCHC) 34.0 32.0-36.0 [facility] HospitalNyzarzcFHVUUAFEKS5797-12-09 15:42:00 Test Item Value Reference Range Interpretation Comments Hgb (test code = Hgb) 14.2 12.0-16.0 [facility] HospitalSirqzjtFOAQTPCZCA9236-22-54 15:42:00 Test Item Value Reference Range Interpretation Comments Platelet (test code = Platelet) 181 133-450 [facility] HospitalSoqwxbbGIUCXAJSTN5482-76-67 15:42:00 Test Item Value Reference Range Interpretation Comments RDW (test code = RDW) 12.6 11.5-14.5 [facility] HospitalFiolieiDBWXCKELTA9197-23-97 15:42:00 Test Item Value Reference Range Interpretation Comments RBC (test code = RBC) 4.72 4.20-5.40 [facility] HospitalDsntahrRRECIJMHSY2592-70-29 15:42:00 Test Item Value Reference Range Interpretation Comments WBC (test code = WBC) 8.0 3.7-10.4 [facility] HospitalOasbhjcZVLQPJDUCU0683-95-11 15:42:00 Test Item Value Reference Range Interpretation Comments MCH (test code = MCH) 30.0 pg 27.0-31.0 [facility] HospitalMmwtofyMGAZZYYFIN1867-15-96 15:42:00 Test Item Value Reference Range Interpretation Comments MCV (test code = MCV) 88.2 80.0-98.0 [facility] HospitalCmcwesuGMKKRZGPMO1328-12-48 15:42:00 Test Item Value Reference Range Interpretation Comments Hct (test code = Hct) 41.6 36.0-48.0 [facility]2017-11-30 15:42:00 Test Item Value Reference Range Interpretation Comments Lipase Lvl (test code = Lipase Lvl) 110 20-393 [facility]2017-11-30 15:42:00 Test Item Value Reference Range Interpretation Comments eGFR (test code = eGFR) See Comment [facility]2017-11-30 15:42:00 Test Item Value Reference Range Interpretation Comments Calcium Lvl (test code = Calcium Lvl) 9.0 8.5-10.5 [facility]2017-11-30 15:42:00 Test Item Value Reference Range Interpretation Comments Albumin Lvl (test code = Albumin Lvl) 3.7 3.5-5.0 [facility]2017-11-30 15:42:00 Test Item Value Reference Range Interpretation Comments ALT (test code = ALT) 22 See_Comment [Auto mated message] The system which ge nerated this result transmit perico reference range : <=65. The reference range was not used to interpr et this result as sincere l/abnormal. [facility]2017-11-30 15:42:00 Test Item Value Reference Range Interpretation Comments Total Protein (test code = Total 7.9 6.4-8.4 Protein) [facility]2017-11-30 15:42:00 Test Item Value Reference Range Interpretation Comments Alk Phos (test code = Alk Phos) 135 39-136 [facility]2017-11-30 15:42:00 Test Item Value Reference Range Interpretation Comments AST (test code = AST) 36 See_Comment [Auto mated message] The system which ge nerated this result transmit perico reference range : <=37. The reference range was not used to interpr et this result as sincere l/abnormal. [facility]2017-11-30 15:42:00 Test Item Value Reference Range Interpretation Comments Bili Total (test code = Bili Total) 0.8 0.2-1.3 [place] 625657-11-30 15:42:00 Test Item Value Reference Range Interpretation Comments Creatinine Lvl (test code = Creatinine 0.57 0.50-1.40 Lvl) [facility]2017-11-30 15:42:00 Test Item Value Reference Range Interpretation Comments Potassium Lvl (test code = Potassium 4.7 3.5-5.1 Lvl) [facility]2017-11-30 15:42:00 Test Item Value Reference Range Interpretation Comments Sodium Lvl (test code = Sodium Lvl) 139 135-145 [facility]2017-11-30 15:42:00 Test Item Value Reference Range Interpretation Comments Chloride Lvl (test code = Chloride Lvl) 108 95-109 [facility]2017-11-30 15:42:00 Test Item Value Reference Range Interpretation Comments CO2 (test code = CO2) 23 24-32 [facility]2017-11-30 15:42:00 Test Item Value Reference Range Interpretation Comments BUN (test code = BUN) 7 7-22 [facility]2017-11-30 15:42:00 Test Item Value Reference Range Interpretation Comments Glucose Lvl (test code = Glucose Lvl) 94 70-99 [facility]2017-11-30 15:42:00 Test Item Value Reference Range Interpretation Comments Globulin (test code = Globulin) 4.2 2.7-4.2 [facility]2017-11-30 15:42:00 Test Item Value Reference Range Interpretation Comments A/G Ratio (test code = A/G Ratio) 0.9 0.7-1.6 [facility]2017-11-30 15:42:00 Test Item Value Reference Range Interpretation Comments AGAP (test code = AGAP) 12.7 10.0-20.0 [facility]2017-11-30 15:42:00 Test Item Value Reference Range Interpretation Comments B/C Ratio (test code = B/C Ratio) 12 6-25 [place] 25521017-11-30 15:42:00 Test Item Value Reference Range Interpretation Comments S Preg (test code = S Negative *NA*(10/12/17 Preg) 9:42 AM) [facility] HospitalDyipnrhCHQWKYHIHV9980-46-28 15:42:00 Test Item Value Reference Range Interpretation Comments Lymphocytes (test code = Lymphocytes) 24.1 20.0-40.0 [facility] HospitalFnhofeyOSVFLXIRLI8393-27-76 15:42:00 Test Item Value Reference Range Interpretation Comments Segs (test code = Segs) 67.6 45.0-75.0 [facility] HospitalSxwudeuDFHNTZAVHT3244-34-94 15:42:00 Test Item Value Reference Range Interpretation Comments Basophils # (test code 0.1 See_Comment [Aut omated message] The = Basophils #) system which generated this result tra nsmitted reference range : <=0.2. The reference r malcolm was not used to int erpret this result as normal/abnormal . [facility] HospitalBeotlxuXUDQNRXDFG4743-99-46 15:42:00 Test Item Value Reference Range Interpretation Comments Segs-Bands # (test code = Segs-Bands #) 5.4 1.5-8.1 [facility] HospitalIbgzrqwLOLAZTRGJW5708-64-68 15:42:00 Test Item Value Reference Range Interpretation Comments Basophils (test code = 0.8 See_Comment [Aut omated message] The Basophils) system which ge nerated this result tra nsmitted reference range : <=1.0. The reference r malcolm was not used to int erpret this result as normal/abnormal . [facility] HospitalAplzarxOIHTUUYROJ9153-81-14 15:42:00 Test Item Value Reference Range Interpretation Comments Eosinophils (test code = 0.6 See_Comment [A utomated message] The Eosinophils) system which ge nerated this result tra nsmitted reference range : <=4.0. The reference r malcolm was not used to int erpret this result as normal/abnormal . [facility] HospitalRrlzlvdNRWWLELZII9933-36-30 15:42:00 Test Item Value Reference Range Interpretation Comments Monocytes (test code = Monocytes) 6.9 2.0-12.0 [facility] HospitalIejeutyPDRTLGIAQT6637-30-06 15:42:00 Test Item Value Reference Range Interpretation Comments Monocytes # (test code 0.6 See_Comment [Aut omated message] The = Monocytes #) system which generated this result tra nsmitted reference range : <=0.8. The reference r malcolm was not used to int erpret this result as normal/abnormal . [facility] HospitalXkxypksTHWJEPHRSF5305-57-42 15:42:00 Test Item Value Reference Range Interpretation Comments Lymphocytes # (test code = Lymphocytes 1.9 1.0-5.5 #) [facility] HospitalQseetuoNWBIBIBXQJ7854-67-58 15:42:00 Test Item Value Reference Range Interpretation Comments MPV (test code = MPV) 9.4 7.4-10.4 [facility] HospitalNaofwgrCYWYPKHJEH1832-09-19 15:42:00 Test Item Value Reference Range Interpretation Comments MCHC (test code = MCHC) 34.0 32.0-36.0 [facility] HospitalBsvtmjdOERRBOHHXN8461-80-66 15:42:00 Test Item Value Reference Range Interpretation Comments Hgb (test code = Hgb) 14.2 12.0-16.0 [facility] HospitalZwjqidlURJCOKOLQZ0169-61-09 15:42:00 Test Item Value Reference Range Interpretation Comments Platelet (test code = Platelet) 181 133-450 [facility] HospitalHiqhaggZVSPDEGFLF1485-94-57 15:42:00 Test Item Value Reference Range Interpretation Comments RDW (test code = RDW) 12.6 11.5-14.5 [facility] HospitalNowgfueSUWSZHNSQU6902-13-94 15:42:00 Test Item Value Reference Range Interpretation Comments RBC (test code = RBC) 4.72 4.20-5.40 [facility] HospitalXtciyyxYURQYBQBTE6931-20-88 15:42:00 Test Item Value Reference Range Interpretation Comments WBC (test code = WBC) 8.0 3.7-10.4 [facility] HospitalUlxkkjcBUGUFOOKYC4907-12-86 15:42:00 Test Item Value Reference Range Interpretation Comments MCH (test code = MCH) 30.0 pg 27.0-31.0 [id number] 15:42:00 Test Item Value Reference Range Interpretation Comments MCV (test code = MCV) 88.2 80.0-98.0 [facility] HospitalRrreheiFMVRWBVATP1067-47-72 15:42:00 Test Item Value Reference Range Interpretation Comments Hct (test code = Hct) 41.6 36.0-48.0 [facility]2017-11-30 15:42:00 Test Item Value Reference Range Interpretation Comments Lipase Lvl (test code = Lipase Lvl) 110 73-393 [facility]2017-11-30 15:42:00 Test Item Value Reference Range Interpretation Comments eGFR (test code = eGFR) See Comment [facility]2017-11-30 15:42:00 Test Item Value Reference Range Interpretation Comments Calcium Lvl (test code = Calcium Lvl) 9.0 8.5-10.5 [facility]2017-11-30 15:42:00 Test Item Value Reference Range Interpretation Comments Albumin Lvl (test code = Albumin Lvl) 3.7 3.5-5.0 [facility]2017-11-30 15:42:00 Test Item Value Reference Range Interpretation Comments ALT (test code = ALT) 22 See_Comment [Auto mated message] The system which ge nerated this result transmit perico reference range : <=65. The reference range was not used to interpr et this result as sincere l/abnormal. [facility]2017-11-30 15:42:00 Test Item Value Reference Range Interpretation Comments Total Protein (test code = Total 7.9 6.4-8.4 Protein) [facility]2017-11-30 15:42:00 Test Item Value Reference Range Interpretation Comments Alk Phos (test code = Alk Phos) 135 39-136 [facility]2017-11-30 15:42:00 Test Item Value Reference Range Interpretation Comments AST (test code = AST) 36 See_Comment [Auto mated message] The system which ge nerated this result transmit perico reference range : <=37. The reference range was not used to interpr et this result as sincere l/abnormal. [facility]2017-11-30 15:42:00 Test Item Value Reference Range Interpretation Comments Bili Total (test code = Bili Total) 0.8 0.2-1.3 [facility]2017-11-30 15:42:00 Test Item Value Reference Range Interpretation Comments Creatinine Lvl (test code = Creatinine 0.57 0.50-1.40 Lvl) [facility]2017-11-30 15:42:00 Test Item Value Reference Range Interpretation Comments Potassium Lvl (test code = Potassium 4.7 3.5-5.1 Lvl) [facility]2017-11-30 15:42:00 Test Item Value Reference Range Interpretation Comments Sodium Lvl (test code = Sodium Lvl) 139 135-145 [facility]2017-11-30 15:42:00 Test Item Value Reference Range Interpretation Comments Chloride Lvl (test code = Chloride Lvl) 108 95-109 [facility]2017-11-30 15:42:00 Test Item Value Reference Range Interpretation Comments CO2 (test code = CO2) 23 24-32 [facility]2017-11-30 15:42:00 Test Item Value Reference Range Interpretation Comments BUN (test code = BUN) 7 7-22 [facility]2017-11-30 15:42:00 Test Item Value Reference Range Interpretation Comments Glucose Lvl (test code = Glucose Lvl) 94 70-99 [facility]2017-11-30 15:42:00 Test Item Value Reference Range Interpretation Comments Globulin (test code = Globulin) 4.2 2.7-4.2 [facility]2017-11-30 15:42:00 Test Item Value Reference Range Interpretation Comments A/G Ratio (test code = A/G Ratio) 0.9 0.7-1.6 [facility]2017-11-30 15:42:00 Test Item Value Reference Range Interpretation Comments AGAP (test code = AGAP) 12.7 10.0-20.0 [facility]2017-11-30 15:42:00 Test Item Value Reference Range Interpretation Comments B/C Ratio (test code = B/C Ratio) 12 6-25 [place] [id number] 15:42:00 Test Item Value Reference Range Interpretation Comments S Preg (test code = S Negative *NA*(10/12/17 Preg) 9:42 AM) [facility] HospitalJktzvmwFEXMANDHXL0161-28-54 15:42:00 Test Item Value Reference Range Interpretation Comments Lymphocytes (test code = Lymphocytes) 24.1 20.0-40.0 [facility] HospitalBkibxwmDEPUPVQMZJ5088-44-11 15:42:00 Test Item Value Reference Range Interpretation Comments Segs (test code = Segs) 67.6 45.0-75.0 [facility] HospitalAunwytjJBJGORAYIL4254-86-99 15:42:00 Test Item Value Reference Range Interpretation Comments Basophils # (test code 0.1 See_Comment [Aut omated message] The = Basophils #) system which generated this result tra nsmitted reference range : <=0.2. The reference r malcolm was not used to int erpret this result as normal/abnormal . [facility] HospitalGeleslbKLFZLQOUTT1638-76-28 15:42:00 Test Item Value Reference Range Interpretation Comments Segs-Bands # (test code = Segs-Bands #) 5.4 1.5-8.1 [facility] HospitalFqagjydHABOXNVSNV6019-83-72 15:42:00 Test Item Value Reference Range Interpretation Comments Basophils (test code = 0.8 See_Comment [Aut omated message] The Basophils) system which ge nerated this result tra nsmitted reference range : <=1.0. The reference r malcolm was not used to int erpret this result as normal/abnormal . [facility] HospitalNijeqmzADORDUESCG3034-31-38 15:42:00 Test Item Value Reference Range Interpretation Comments Eosinophils (test code = 0.6 See_Comment [A utomated message] The Eosinophils) system which ge nerated this result tra nsmitted reference range : <=4.0. The reference r malcolm was not used to int erpret this result as normal/abnormal . [facility] HospitalLtanjadSKMXMMBGPA8910-13-40 15:42:00 Test Item Value Reference Range Interpretation Comments Monocytes (test code = Monocytes) 6.9 2.0-12.0 [facility] HospitalZiiyzarHWBUVKZDSE2372-92-18 15:42:00 Test Item Value Reference Range Interpretation Comments Monocytes # (test code 0.6 See_Comment [Aut omated message] The = Monocytes #) system which generated this result tra nsmitted reference range : <=0.8. The reference r malcolm was not used to int erpret this result as normal/abnormal . [facility] HospitalBwdmdboFCYXBCIROU1252-90-52 15:42:00 Test Item Value Reference Range Interpretation Comments Lymphocytes # (test code = Lymphocytes 1.9 1.0-5.5 #) [facility] HospitalSrfsfjpLKVCSDZJAP5998-91-16 15:42:00 Test Item Value Reference Range Interpretation Comments MPV (test code = MPV) 9.4 7.4-10.4 [facility] HospitalDoafuxvNIHDZVRRWD4148-28-29 15:42:00 Test Item Value Reference Range Interpretation Comments MCHC (test code = MCHC) 34.0 32.0-36.0 [facility] HospitalJqbxayuYGBMVBXDWC1060-14-29 15:42:00 Test Item Value Reference Range Interpretation Comments Hgb (test code = Hgb) 14.2 12.0-16.0 [facility] HospitalPekhyslZFXREYYWNL4134-16-64 15:42:00 Test Item Value Reference Range Interpretation Comments Platelet (test code = Platelet) 181 133-450 [facility] HospitalAndvyaoNVMXZPHRZB7498-71-22 15:42:00 Test Item Value Reference Range Interpretation Comments RDW (test code = RDW) 12.6 11.5-14.5 [facility] HospitalPvrtsroBRFYSGAATT1420-78-93 15:42:00 Test Item Value Reference Range Interpretation Comments RBC (test code = RBC) 4.72 4.20-5.40 [facility] HospitalHyrfeesYYRMJTHZOK4172-06-64 15:42:00 Test Item Value Reference Range Interpretation Comments WBC (test code = WBC) 8.0 3.7-10.4 [facility] HospitalUjysoloCLXZHPNUFL1934-96-03 15:42:00 Test Item Value Reference Range Interpretation Comments MCH (test code = MCH) 30.0 pg 27.0-31.0 [facility] HospitalYbnhsgjVEUPGBPLQE6907-76-12 15:42:00 Test Item Value Reference Range Interpretation Comments MCV (test code = MCV) 88.2 80.0-98.0 [place] [address]-11-30 15:42:00 Test Item Value Reference Range Interpretation Comments Hct (test code = Hct) 41.6 36.0-48.0 [facility]2017-11-30 15:42:00 Test Item Value Reference Range Interpretation Comments Lipase Lvl (test code = Lipase Lvl) 110 73-393 [facility]2017-11-30 15:42:00 Test Item Value Reference Range Interpretation Comments eGFR (test code = eGFR) See Comment [facility]2017-11-30 15:42:00 Test Item Value Reference Range Interpretation Comments Calcium Lvl (test code = Calcium Lvl) 9.0 8.5-10.5 [facility]2017-11-30 15:42:00 Test Item Value Reference Range Interpretation Comments Albumin Lvl (test code = Albumin Lvl) 3.7 3.5-5.0 [facility]2017-11-30 15:42:00 Test Item Value Reference Range Interpretation Comments ALT (test code = ALT) 22 <=65 [facility]2017-11-30 15:42:00 Test Item Value Reference Range Interpretation Comments Total Protein (test code = Total 7.9 6.4-8.4 Protein) [facility]2017-11-30 15:42:00 Test Item Value Reference Range Interpretation Comments Alk Phos (test code = Alk Phos) 135 39-136 [facility]2017-11-30 15:42:00 Test Item Value Reference Range Interpretation Comments AST (test code = AST) 36 <=37 [facility]2017-11-30 15:42:00 Test Item Value Reference Range Interpretation Comments Bili Total (test code = Bili Total) 0.8 0.2-1.3 [facility]2017-11-30 15:42:00 Test Item Value Reference Range Interpretation Comments Creatinine Lvl (test code = Creatinine 0.57 0.50-1.40 Lvl) [facility]2017-11-30 15:42:00 Test Item Value Reference Range Interpretation Comments Potassium Lvl (test code = Potassium 4.7 3.5-5.1 Lvl) [facility]2017-11-30 15:42:00 Test Item Value Reference Range Interpretation Comments Sodium Lvl (test code = Sodium Lvl) 139 135-145 [facility]2017-11-30 15:42:00 Test Item Value Reference Range Interpretation Comments Chloride Lvl (test code = Chloride Lvl) 108 95-109 [facility]2017-11-30 15:42:00 Test Item Value Reference Range Interpretation Comments CO2 (test code = CO2) 23 24-32 [facility]2017-11-30 15:42:00 Test Item Value Reference Range Interpretation Comments BUN (test code = BUN) 7 7-22 [facility]2017-11-30 15:42:00 Test Item Value Reference Range Interpretation Comments Glucose Lvl (test code = Glucose Lvl) 94 70-99 [facility]2017-11-30 15:42:00 Test Item Value Reference Range Interpretation Comments Globulin (test code = Globulin) 4.2 2.7-4.2 [facility]2017-11-30 15:42:00 Test Item Value Reference Range Interpretation Comments A/G Ratio (test code = A/G Ratio) 0.9 0.7-1.6 [facility]2017-11-30 15:42:00 Test Item Value Reference Range Interpretation Comments AGAP (test code = AGAP) 12.7 10.0-20.0 [facility]2017-11-30 15:42:00 Test Item Value Reference Range Interpretation Comments B/C Ratio (test code = B/C Ratio) 12 6-25 [facility]QWY3108-75-99 15:42:00 Test Item Value Reference Range Interpretation Comments S Preg (test code = S Negative *NA*(11/30/17 Preg) 9:42 AM) [facility] HospitalSjqrkhvTWWKHRLQCI2304-65-83 15:42:00 Test Item Value Reference Range Interpretation Comments Lymphocytes (test code = Lymphocytes) 24.1 20.0-40.0 [facility] HospitalQwkelugJWCLMAYHOT2132-18-16 15:42:00 Test Item Value Reference Range Interpretation Comments Segs (test code = Segs) 67.6 45.0-75.0 [facility] HospitalQcofoqsXOKIZUNPTN8992-02-31 15:42:00 Test Item Value Reference Range Interpretation Comments Basophils # (test code = Basophils #) 0.1 <=0.2 [facility] HospitalMngqyrkZHYZVXCQIA0160-43-12 15:42:00 Test Item Value Reference Range Interpretation Comments Segs-Bands # (test code = Segs-Bands #) 5.4 1.5-8.1 [facility] HospitalElnyourORJXCBJUJI6091-24-87 15:42:00 Test Item Value Reference Range Interpretation Comments Basophils (test code = Basophils) 0.8 <=1.0 [facility] HospitalYlxnqhjMQKGJCPPKV4303-00-07 15:42:00 Test Item Value Reference Range Interpretation Comments Eosinophils (test code = Eosinophils) 0.6 <=4.0 [facility] HospitalAgmfwczYGJRYDXJJF0625-29-55 15:42:00 Test Item Value Reference Range Interpretation Comments Monocytes (test code = Monocytes) 6.9 2.0-12.0 [facility] HospitalImojgfbDSBBUOJCZO6794-53-38 15:42:00 Test Item Value Reference Range Interpretation Comments Monocytes # (test code = Monocytes #) 0.6 <=0.8 [facility] HospitalEiyvuwsIISUGFVDIW1344-81-43 15:42:00 Test Item Value Reference Range Interpretation Comments Lymphocytes # (test code = Lymphocytes 1.9 1.0-5.5 #) [facility] HospitalBetshrvPEYBPGARED5850-59-21 15:42:00 Test Item Value Reference Range Interpretation Comments MPV (test code = MPV) 9.4 7.4-10.4 [facility] HospitalNdaryquQZUQFFTQOU4613-25-98 15:42:00 Test Item Value Reference Range Interpretation Comments MCHC (test code = MCHC) 34.0 32.0-36.0 [facility] HospitalApyvahaBCLIAWKXZA5598-03-77 15:42:00 Test Item Value Reference Range Interpretation Comments Hgb (test code = Hgb) 14.2 12.0-16.0 [place] 462277-11-30 15:42:00 Test Item Value Reference Range Interpretation Comments Platelet (test code = Platelet) 181 133-450 [facility] HospitalCtdfsddWVPOVEVMBK8593-45-23 15:42:00 Test Item Value Reference Range Interpretation Comments RDW (test code = RDW) 12.6 11.5-14.5 [facility] HospitalKmhxzibYDRTOMCCUB0880-06-83 15:42:00 Test Item Value Reference Range Interpretation Comments RBC (test code = RBC) 4.72 4.20-5.40 [facility] HospitalPbltnzwGTCJWXGASV0239-72-57 15:42:00 Test Item Value Reference Range Interpretation Comments WBC (test code = WBC) 8.0 3.7-10.4 [facility] HospitalIxgtmjrLINQFCLRNG1755-46-73 15:42:00 Test Item Value Reference Range Interpretation Comments MCH (test code = MCH) 30.0 pg 27.0-31.0 [facility] HospitalVnnqwuoYARYZZQRLJ6356-22-65 15:42:00 Test Item Value Reference Range Interpretation Comments MCV (test code = MCV) 88.2 80.0-98.0 [facility] HospitalOhqpcyzMFNBAWKGQP6669-85-58 15:42:00 Test Item Value Reference Range Interpretation Comments Hct (test code = Hct) 41.6 36.0-48.0 [facility]2017-11-30 15:39:00 Test Item Value Reference Range Interpretation Comments UA Sq Epi (test code = UA Sq Moderate /LPF Epi) [facility] AND [id number] 15:39:00 Test Item Value Reference Range Interpretation Comments UA RBC (test code = 3 See_Comment [Automa perico message] The UA RBC) system which ge nerated this result transmit perico reference range : <=2. The reference range was not used to interpr et this result as sincere l/abnormal. [facility] AND [id number] 15:39:00 Test Item Value Reference Range Interpretation Comments UA Bacteria (test code = UA Occasional /HPF Bacteria) [facility] AND [id number] 15:39:00 Test Item Value Reference Range Interpretation Comments UA WBC (test code = 10 See_Comment [Automa perico message] The UA WBC) system which ge nerated this result transmit perico reference range : <=5. The reference range was not used to interpr et this result as sincere l/abnormal. [facility] AND [id number] 15:39:00 Test Item Value Reference Range Interpretation Comments UA [place] Yeast (test code = UA [place] Few /HPF Yeast) [facility] AND [id number] 15:39:00 Test Item Value Reference Range Interpretation Comments UA Mucus (test code = UA Mucus) Few /LPF [facility] AND [id number] 15:39:00 Test Item Value Reference Range Interpretation Comments UA Glucose (test code = UA Negative mg/dL Glucose) [facility] AND [id number] 15:39:00 Test Item Value Reference Range Interpretation Comments UA Protein (test code = UA Negative mg/dL Protein) [facility] AND [id number] 15:39:00 Test Item Value Reference Range Interpretation Comments UA Ketones (test code = UA Trace mg/dL Ketones) [facility] AND [id number] 15:39:00 Test Item Value Reference Range Interpretation Comments UA Bili (test code = Negative *NA*(10/12/17 UA Bili) 9:39 AM) [facility] AND [id number] 15:39:00 Test Item Value Reference Range Interpretation Comments UA Blood (test code = Small *ABN*(10/12/17 UA Blood) 9:39 AM) [facility] AND [id number] 15:39:00 Test Item Value Reference Range Interpretation Comments UA Urobilinogen (test code = UA 2.0 0.1-1.0 Urobilinogen) [facility] AND [id number] 15:39:00 Test Item Value Reference Range Interpretation Comments UA Nitrite (test code Negative (10/12/17 9:39 = UA Nitrite) AM) [facility] AND [id number] 15:39:00 Test Item Value Reference Range Interpretation Comments UA Leuk Est (test Moderate *ABN*(10/12/17 code = UA Leuk Est) 9:39 AM) [facility] AND [id number] 15:39:00 Test Item Value Reference Range Interpretation Comments UA Turbidity (test code Slight *ABN*(10/12/17 = UA Turbidity) 9:39 AM) [facility] AND [id number] 15:39:00 Test Item Value Reference Range Interpretation Comments UA Spec Grav (test code = UA Spec Grav) 1.024 [facility] [id number] 15:39:00 Test Item Value Reference Range Interpretation Comments UA pH (test code = UA pH) 6.0 5.0-8.0 [facility] [id number] 15:39:00 Test Item Value Reference Range Interpretation Comments UA Color (test code = Yellow *NA*(10/12/17 UA Color) 9:39 AM) [facility] [id number] 15:39:00 Test Item Value Reference Range Interpretation Comments UA Sq Epi (test code = UA Sq Moderate /LPF Epi) [facility] [id number] 15:39:00 Test Item Value Reference Range Interpretation Comments UA RBC (test code = 3 See_Comment [Automa perico message] The UA RBC) system which ge nerated this result transmit perico reference range : <=2. The reference range was not used to interpr et this result as sincere l/abnormal. [facility] [id number] 15:39:00 Test Item Value Reference Range Interpretation Comments UA Bacteria (test code = UA Occasional /HPF Bacteria) [facility] [id number] 15:39:00 Test Item Value Reference Range Interpretation Comments UA WBC (test code = 10 See_Comment [Automa perico message] The UA WBC) system which ge nerated this result transmit perico reference range : <=5. The reference range was not used to interpr et this result as sincere l/abnormal. [facility] [id number] 15:39:00 Test Item Value Reference Range Interpretation Comments UA [place] Yeast (test code = UA [place] Few /HPF Yeast) [facility] [id number] 15:39:00 Test Item Value Reference Range Interpretation Comments UA Mucus (test code = UA Mucus) Few /LPF [facility] [id number] 15:39:00 Test Item Value Reference Range Interpretation Comments UA Glucose (test code = UA Negative mg/dL Glucose) [facility] AND [id number] 15:39:00 Test Item Value Reference Range Interpretation Comments UA Protein (test code = UA Negative mg/dL Protein) [facility] [id number] 15:39:00 Test Item Value Reference Range Interpretation Comments UA Ketones (test code = UA Trace mg/dL Ketones) [facility] AND [id number] 15:39:00 Test Item Value Reference Range Interpretation Comments UA Bili (test code = Negative *NA*(10/12/17 UA Bili) 9:39 AM) [facility] AND [id number] 15:39:00 Test Item Value Reference Range Interpretation Comments UA Blood (test code = Small *ABN*(10/12/17 UA Blood) 9:39 AM) [facility] AND [id number] 15:39:00 Test Item Value Reference Range Interpretation Comments UA Urobilinogen (test code = UA 2.0 0.1-1.0 Urobilinogen) [facility] AND [id number] 15:39:00 Test Item Value Reference Range Interpretation Comments UA Nitrite (test code Negative (10/12/17 9:39 = UA Nitrite) AM) [facility] AND [id number] 15:39:00 Test Item Value Reference Range Interpretation Comments UA Leuk Est (test Moderate *ABN*(10/12/17 code = UA Leuk Est) 9:39 AM) [facility] AND [id number] 15:39:00 Test Item Value Reference Range Interpretation Comments UA Turbidity (test code Slight *ABN*(10/12/17 = UA Turbidity) 9:39 AM) [facility] AND [id number] 15:39:00 Test Item Value Reference Range Interpretation Comments UA Spec Grav (test code = UA Spec Grav) 1.024 [facility] AND [id number] 15:39:00 Test Item Value Reference Range Interpretation Comments UA pH (test code = UA pH) 6.0 5.0-8.0 [facility] AND [id number] 15:39:00 Test Item Value Reference Range Interpretation Comments UA Color (test code = Yellow *NA*(10/12/17 UA Color) 9:39 AM) [facility] AND [id number] 15:39:00 Test Item Value Reference Range Interpretation Comments UA Sq Epi (test code = UA Sq Moderate /LPF Epi) [facility] AND [id number] 15:39:00 Test Item Value Reference Range Interpretation Comments UA RBC (test code = 3 See_Comment [Automa perico message] The UA RBC) system which ge nerated this result transmit perico reference range : <=2. The reference range was not used to interpr et this result as sincere l/abnormal. [facility] AND [id number] 15:39:00 Test Item Value Reference Range Interpretation Comments UA Bacteria (test code = UA Occasional /HPF Bacteria) [facility] AND [id number] 15:39:00 Test Item Value Reference Range Interpretation Comments UA WBC (test code = 10 See_Comment [Automa perico message] The UA WBC) system which ge nerated this result transmit perico reference range : <=5. The reference range was not used to interpr et this result as sincere l/abnormal. [facility] AND [id number] 15:39:00 Test Item Value Reference Range Interpretation Comments UA [place] Yeast (test code = UA [place] Few /HPF Yeast) [facility] AND [id number] 15:39:00 Test Item Value Reference Range Interpretation Comments UA Mucus (test code = UA Mucus) Few /LPF [facility] AND [id number] 15:39:00 Test Item Value Reference Range Interpretation Comments UA Glucose (test code = UA Negative mg/dL Glucose) [facility] AND [id number] 15:39:00 Test Item Value Reference Range Interpretation Comments UA Protein (test code = UA Negative mg/dL Protein) [facility] AND [id number] 15:39:00 Test Item Value Reference Range Interpretation Comments UA Ketones (test code = UA Trace mg/dL Ketones) [facility] AND [id number] 15:39:00 Test Item Value Reference Range Interpretation Comments UA Bili (test code = Negative *NA*(10/12/17 UA Bili) 9:39 AM) [facility] AND [id number] 15:39:00 Test Item Value Reference Range Interpretation Comments UA Blood (test code = Small *ABN*(10/12/17 UA Blood) 9:39 AM) [facility] AND [id number] 15:39:00 Test Item Value Reference Range Interpretation Comments UA Urobilinogen (test code = UA 2.0 0.1-1.0 Urobilinogen) [facility] [id number] 15:39:00 Test Item Value Reference Range Interpretation Comments UA Nitrite (test code Negative (10/12/17 9:39 = UA Nitrite) AM) [facility] [id number] 15:39:00 Test Item Value Reference Range Interpretation Comments UA Leuk Est (test Moderate *ABN*(10/12/17 code = UA Leuk Est) 9:39 AM) [facility] [id number] 15:39:00 Test Item Value Reference Range Interpretation Comments UA Turbidity (test code Slight *ABN*(10/12/17 = UA Turbidity) 9:39 AM) [facility] AND [id number] 15:39:00 Test Item Value Reference Range Interpretation Comments UA Spec Grav (test code = UA Spec Grav) 1.024 [facility] AND [id number] 15:39:00 Test Item Value Reference Range Interpretation Comments UA pH (test code = UA pH) 6.0 5.0-8.0 [facility] AND [id number] 15:39:00 Test Item Value Reference Range Interpretation Comments UA Color (test code = Yellow *NA*(10/12/17 UA Color) 9:39 AM) [facility] AND [id number] 15:39:00 Test Item Value Reference Range Interpretation Comments UA Sq Epi (test code = UA Sq Moderate /LPF Epi) [facility] AND [id number] 15:39:00 Test Item Value Reference Range Interpretation Comments UA RBC (test code = UA RBC) 3 <=2 [facility] AND [id number] 15:39:00 Test Item Value Reference Range Interpretation Comments UA Bacteria (test code = UA Occasional /HPF Bacteria) [facility] [id number] 15:39:00 Test Item Value Reference Range Interpretation Comments UA WBC (test code = UA WBC) 10 <=5 [facility] [id number] 15:39:00 Test Item Value Reference Range Interpretation Comments UA [place] Yeast (test code = UA [place] Few /HPF Yeast) [facility] AND [id number] 15:39:00 Test Item Value Reference Range Interpretation Comments UA Mucus (test code = UA Mucus) Few /LPF [facility] AND [id number] 15:39:00 Test Item Value Reference Range Interpretation Comments UA Glucose (test code = UA Negative mg/dL Glucose) [facility] AND [id number] 15:39:00 Test Item Value Reference Range Interpretation Comments UA Protein (test code = UA Negative mg/dL Protein) [facility] AND [id number] 15:39:00 Test Item Value Reference Range Interpretation Comments UA Ketones (test code = UA Trace mg/dL Ketones) [facility] AND [id number] 15:39:00 Test Item Value Reference Range Interpretation Comments UA Bili (test code = Negative *NA*(10/12/17 UA Bili) 9:39 AM) [facility] AND [id number] 15:39:00 Test Item Value Reference Range Interpretation Comments UA Blood (test code = Small *ABN*(10/12/17 UA Blood) 9:39 AM) [facility] AND [id number] 15:39:00 Test Item Value Reference Range Interpretation Comments UA Urobilinogen (test code = UA 2.0 0.1-1.0 Urobilinogen) [facility] AND [id number] 15:39:00 Test Item Value Reference Range Interpretation Comments UA Nitrite (test code Negative (10/12/17 9:39 = UA Nitrite) AM) [facility] AND [id number] 15:39:00 Test Item Value Reference Range Interpretation Comments UA Leuk Est (test Moderate *ABN*(10/12/17 code = UA Leuk Est) 9:39 AM) [facility] AND [id number] 15:39:00 Test Item Value Reference Range Interpretation Comments UA Turbidity (test code Slight *ABN*(10/12/17 = UA Turbidity) 9:39 AM) [facility] AND [id number] 15:39:00 Test Item Value Reference Range Interpretation Comments UA Spec Grav (test code = UA Spec Grav) 1.024 [facility] AND [id number] 15:39:00 Test Item Value Reference Range Interpretation Comments UA pH (test code = UA pH) 6.0 5.0-8.0 [facility] [id number] 15:39:00 Test Item Value Reference Range Interpretation Comments UA Color (test code = Yellow *NA*(10/12/17 UA Color) 9:39 AM) [facility] [id number] 03:22:00 Test Item Value Reference Range Interpretation Comments Lipase Lvl (test code = Lipase Lvl) 118 73-393 [facility] CenterVvozazxHAJMNKDYZKUA9917-56-55 03:22:00 Test Item Value Reference Range Interpretation Comments AGAP (test code = AGAP) 12.6 10.0-20.0 [facility] CenterEcqpkfkRXLCEASLUBTO7652-46-03 03:22:00 Test Item Value Reference Range Interpretation Comments A/G Ratio (test code = A/G Ratio) 1.2 0.7-1.6 [facility] CenterNdysdvmWETCMZWIABGZ5053-11-91 03:22:00 Test Item Value Reference Range Interpretation Comments Globulin (test code = Globulin) 3.7 2.0-4.0 [facility] CenterUrxchlpYJLRWVJGDKAT4565-81-14 03:22:00 Test Item Value Reference Range Interpretation Comments B/C Ratio (test code = B/C Ratio) 20 6-25 [facility] CenterEwgluocUYMIOJBAATQQ1947-85-02 03:22:00 Test Item Value Reference Range Interpretation Comments eGFR (test code = eGFR) 159 [facility] CenterBlgdfiaRZBTTYCZQXMF7796-69-11 03:22:00 Test Item Value Reference Range Interpretation Comments Sodium Lvl (test code = Sodium Lvl) 139 135-145 [facility] CenterSmdmmjkHAROUABXKQIU6379-80-69 03:22:00 Test Item Value Reference Range Interpretation Comments Creatinine Lvl (test code = Creatinine 0.4 0.5-1.4 Lvl) [facility] CenterNvbwrvbCKZLQJUSVVEM6496-98-71 03:22:00 Test Item Value Reference Range Interpretation Comments BUN (test code = BUN) 8 7-22 [facility] CenterVsbnbqfFLWTZICSCQUW8157-71-76 03:22:00 Test Item Value Reference Range Interpretation Comments Chloride Lvl (test code = Chloride Lvl) 105 95-109 [facility] CenterRqfbhvwHZPRYGEAWMGM7913-92-64 03:22:00 Test Item Value Reference Range Interpretation Comments Potassium Lvl (test code = Potassium 3.6 3.5-5.1 Lvl) [facility] CenterQeqritrZHQFAWNFOBKI7556-34-79 03:22:00 Test Item Value Reference Range Interpretation Comments CO2 (test code = CO2) 25 24-32 [facility] CenterJwnandvPCENIUECGRSI5065-23-79 03:22:00 Test Item Value Reference Range Interpretation Comments Total Protein (test code = Total 8.0 6.4-8.4 Protein) [facility] CenterCvkohkyZLFYXFYNHJUM4687-75-21 03:22:00 Test Item Value Reference Range Interpretation Comments Calcium Lvl (test code = Calcium Lvl) 9.4 8.5-10.5 [facility] CenterInaouaiSSMGJYGTVWNA1424-92-64 03:22:00 Test Item Value Reference Range Interpretation Comments AST (test code = AST) 17 See_Comment [Auto mated message] The system which ge nerated this result transmit perico reference range : <=37. The reference range was not used to interpr et this result as sincere l/abnormal. [facility] CenterWjgylyuAHAIQMCVHWBQ7623-26-69 03:22:00 Test Item Value Reference Range Interpretation Comments Bili Total (test code = Bili Total) 1.2 0.2-1.3 [facility] CenterZxlodxqVOIXVIVSRVBJ3505-69-02 03:22:00 Test Item Value Reference Range Interpretation Comments ALT (test code = ALT) 19 See_Comment [Auto mated message] The system which ge nerated this result transmit perico reference range : <=65. The reference range was not used to interpr et this result as sincere l/abnormal. [facility] CenterBjrdgzkGDEHVVWUSRPQ3426-86-80 03:22:00 Test Item Value Reference Range Interpretation Comments Albumin Lvl (test code = Albumin Lvl) 4.3 3.5-5.0 [facility] CenterHixzookFAJGRWNSYCFO2491-97-68 03:22:00 Test Item Value Reference Range Interpretation Comments Alk Phos (test code = Alk Phos) 142 80-406 [facility] CenterNfbgyxeMXXLZRLLLLVE9289-61-82 03:22:00 Test Item Value Reference Range Interpretation Comments Glucose Lvl (test code = Glucose Lvl) 86 70-99 [facility]ElzmsdyIZMBQKHJHT2714-99-25 03:22:00 Test Item Value Reference Range Interpretation Comments Segs-Bands # (test code = Segs-Bands #) 6.9 1.5-8.1 [facility] HospitalJpofcbkAQCEHHAGMY1311-49-09 03:22:00 Test Item Value Reference Range Interpretation Comments Lymphocytes # (test code = Lymphocytes 2.3 1.0-5.5 #) [facility] HospitalDjhmadzLAUUVATYXP6984-09-20 03:22:00 Test Item Value Reference Range Interpretation Comments Monocytes # (test code 0.6 See_Comment [Aut omated message] The = Monocytes #) system which generated this result tra nsmitted reference range : <=0.8. The reference r malcolm was not used to int erpret this result as normal/abnormal . [facility] HospitalMgfgdzqYVOCMXTUWY4644-69-36 03:22:00 Test Item Value Reference Range Interpretation Comments Lymphocytes (test code = Lymphocytes) 23.2 20.0-40.0 [facility] HospitalVigsclqFQEECDYJCY3515-24-78 03:22:00 Test Item Value Reference Range Interpretation Comments Monocytes (test code = Monocytes) 5.9 2.0-12.0 [facility] HospitalWjtnofxPHPXRAOSLQ5230-62-63 03:22:00 Test Item Value Reference Range Interpretation Comments Eosinophils (test code = 0.4 See_Comment [A utomated message] The Eosinophils) system which ge nerated this result tra nsmitted reference range : <=4.0. The reference r malcolm was not used to int erpret this result as normal/abnormal . [facility] HospitalZhhxnfgYFAYIUSEEW7215-97-13 03:22:00 Test Item Value Reference Range Interpretation Comments Basophils (test code = 0.4 See_Comment [Aut omated message] The Basophils) system which ge nerated this result tra nsmitted reference range : <=1.0. The reference r malcolm was not used to int erpret this result as normal/abnormal . [facility] HospitalJkjgtagMYSWFDAATW8192-12-01 03:22:00 Test Item Value Reference Range Interpretation Comments Segs (test code = Segs) 70.1 34.0-64.0 [facility] HospitalSapxianVVGQZHHXCN5675-79-70 03:22:00 Test Item Value Reference Range Interpretation Comments PTT (test code = PTT) 28.1 s 22.9-35.8 [facility] HospitalHtvphkhHZOZNYHMKH9009-12-14 03:22:00 Test Item Value Reference Range Interpretation Comments INR (test code = INR) 1.02 0.85-1.17 [facility] HospitalVzrfqhoFEUGZHFIAQ9520-78-99 03:22:00 Test Item Value Reference Range Interpretation Comments PT (test code = PT) 13.4 s 12.0-14.7 [facility] HospitalKooalrpFSGZCMIUZS6516-64-91 03:22:00 Test Item Value Reference Range Interpretation Comments Hgb (test code = Hgb) 13.6 12.0-16.0 [facility] HospitalUuxlbbvRMKCWGZTPM9726-87-21 03:22:00 Test Item Value Reference Range Interpretation Comments Hct (test code = Hct) 40.5 36.0-48.0 [facility] HospitalKlyponuUBJZLCTDTK4793-36-05 03:22:00 Test Item Value Reference Range Interpretation Comments RBC (test code = RBC) 4.51 4.20-5.40 [facility] HospitalGktihpcOWZYQDNGWH6009-05-66 03:22:00 Test Item Value Reference Range Interpretation Comments MCV (test code = MCV) 89.7 80.0-98.0 [facility] HospitalHfzmsjpGMDCYTBYDE0869-69-34 03:22:00 Test Item Value Reference Range Interpretation Comments WBC (test code = WBC) 9.8 3.7-10.4 [facility] HospitalImvsbbmUBUBGUXTUQ0460-24-30 03:22:00 Test Item Value Reference Range Interpretation Comments Platelet (test code = Platelet) 178 133-450 [facility] HospitalOfpuqizLLLGPDWCSP9344-35-39 03:22:00 Test Item Value Reference Range Interpretation Comments MPV (test code = MPV) 9.1 7.4-10.4 [facility] HospitalUatdbkbEBDIFAKHTI6769-84-91 03:22:00 Test Item Value Reference Range Interpretation Comments MCHC (test code = MCHC) 33.5 32.0-36.0 [facility] HospitalRakfneuTAJSYACOKB6433-50-48 03:22:00 Test Item Value Reference Range Interpretation Comments RDW (test code = RDW) 11.7 11.5-14.5 [facility] HospitalFwziuxrJJLLMBVHKX6085-80-67 03:22:00 Test Item Value Reference Range Interpretation Comments MCH (test code = MCH) 30.1 pg 27.0-31.0 [facility]2015-08-06 03:22:00 Test Item Value Reference Range Interpretation Comments UA Turbidity (test code Slight Cloudy (06/17/15 = UA Turbidity) 10:22 PM) [facility] AND [id number] 03:22:00 Test Item Value Reference Range Interpretation Comments UA Spec Grav (test code = UA Spec 1.020 1 Grav) [facility] AND [id number] 03:22:00 Test Item Value Reference Range Interpretation Comments UA Urobilinogen (test code = UA 1.0 0.1-1.0 Urobilinogen) [facility] AND [id number] 03:22:00 Test Item Value Reference Range Interpretation Comments UA Nitrite (test code Negative (06/17/15 10:22 = UA Nitrite) PM) [facility] AND [id number] 03:22:00 Test Item Value Reference Range Interpretation Comments UA Blood (test code = Negative (06/17/15 10:22 UA Blood) PM) [facility] AND [id number] 03:22:00 Test Item Value Reference Range Interpretation Comments UA Protein (test code Negative (06/17/15 10:22 = UA Protein) PM) [facility] AND [id number] 03:22:00 Test Item Value Reference Range Interpretation Comments UA pH (test code = UA pH) 7.0 1 5.0-8.0 [facility] AND [id number] 03:22:00 Test Item Value Reference Range Interpretation Comments UA Ketones (test code = Trace *ABN*(06/17/15 UA Ketones) 10:22 PM) [facility] AND [id number] 03:22:00 Test Item Value Reference Range Interpretation Comments UA Bili (test code = Negative *NA*(06/17/15 UA Bili) 10:22 PM) [facility] AND [id number] 03:22:00 Test Item Value Reference Range Interpretation Comments UA Glucose (test code Negative (06/17/15 10:22 = UA Glucose) PM) [facility] AND [id number] 03:22:00 Test Item Value Reference Range Interpretation Comments UA Color (test code = Yellow *NA*(06/17/15 UA Color) 10:22 PM) [facility] AND [id number] 03:22:00 Test Item Value Reference Range Interpretation Comments UA RBC (test code = 0-2 /HPF See_Comment [Automa perico message] The UA RBC) system which ge nerated this result tra nsmitted reference range : <=2. The reference range was not used to interpr et this result as sincere l/abnormal. [facility] [id number] 03:22:00 Test Item Value Reference Range Interpretation Comments UA Bacteria (test code = UA Moderate /HPF Bacteria) [facility] [id number] 03:22:00 Test Item Value Reference Range Interpretation Comments UA Sq Epi (test code = UA Sq Epi) Few /LPF [facility] [id number] 03:22:00 Test Item Value Reference Range Interpretation Comments UA Leuk Est (test code Trace *ABN*(06/17/15 = UA Leuk Est) 10:22 PM) [facility] [id number] 03:22:00 Test Item Value Reference Range Interpretation Comments UA WBC (test code = UA WBC) 0-2 /HPF [facility] [id number] 03:22:00 Test Item Value Reference Range Interpretation Comments U Preg (test code = U Negative (06/17/15 10:22 Preg) PM) [facility] [id number] 03:22:00 Test Item Value Reference Range Interpretation Comments Lipase Lvl (test code = Lipase Lvl) 118 73-393 [facility] ArlingtonJyuvzikUSSGQSDHPORM0832-96-57 03:22:00 Test Item Value Reference Range Interpretation Comments AGAP (test code = AGAP) 12.6 10.0-20.0 [facility] ArlingtonHjdnmsgIDMDAMUMFFOC0088-25-55 03:22:00 Test Item Value Reference Range Interpretation Comments A/G Ratio (test code = A/G Ratio) 1.2 0.7-1.6 [facility] ArlingtonUkrmfprRMGHPUNRAORJ0467-48-45 03:22:00 Test Item Value Reference Range Interpretation Comments Globulin (test code = Globulin) 3.7 2.0-4.0 [facility] ArlingtonVkpjpgqCTMYVWNATYRZ5711-32-95 03:22:00 Test Item Value Reference Range Interpretation Comments B/C Ratio (test code = B/C Ratio) 20 6-25 [facility] ArlingtonYrcniiiTCXIOBMZYNKF3118-12-63 03:22:00 Test Item Value Reference Range Interpretation Comments eGFR (test code = eGFR) 159 [facility] ArlingtonLiykwdwDAXPQPDAIEVD1126-52-89 03:22:00 Test Item Value Reference Range Interpretation Comments Sodium Lvl (test code = Sodium Lvl) 139 135-145 [facility] CenterPbzrmzgQINGUCDLUDWW5439-16-13 03:22:00 Test Item Value Reference Range Interpretation Comments Creatinine Lvl (test code = Creatinine 0.4 0.5-1.4 Lvl) [facility] CenterNshegncHUVXWZNHDSGZ1548-94-55 03:22:00 Test Item Value Reference Range Interpretation Comments BUN (test code = BUN) 8 7-22 [facility] CenterFpfskpmUDAKCSCSXGOT6066-48-36 03:22:00 Test Item Value Reference Range Interpretation Comments Chloride Lvl (test code = Chloride Lvl) 105 95-109 [facility] CenterIcwoibpVQXUNLKFMNOQ4902-95-96 03:22:00 Test Item Value Reference Range Interpretation Comments Potassium Lvl (test code = Potassium 3.6 3.5-5.1 Lvl) [facility] CenterBuevwvcLOQBJAWZJNBI9752-00-83 03:22:00 Test Item Value Reference Range Interpretation Comments CO2 (test code = CO2) 25 24-32 [facility] CenterQkhqwokUPRZQZCCFCKF9823-75-22 03:22:00 Test Item Value Reference Range Interpretation Comments Total Protein (test code = Total 8.0 6.4-8.4 Protein) [facility] CenterVwmhvczRLLEJUUHAJBA8013-91-32 03:22:00 Test Item Value Reference Range Interpretation Comments Calcium Lvl (test code = Calcium Lvl) 9.4 8.5-10.5 [facility] CenterTkuyxtuYHNJNSYONGOW9306-71-76 03:22:00 Test Item Value Reference Range Interpretation Comments AST (test code = AST) 17 See_Comment [Auto mated message] The system which ge nerated this result transmit perico reference range : <=37. The reference range was not used to interpr et this result as sincere l/abnormal. [facility] CenterEydkoplQYKVTFDBBHKY6109-45-14 03:22:00 Test Item Value Reference Range Interpretation Comments Bili Total (test code = Bili Total) 1.2 0.2-1.3 [facility] CenterYgqzolaCCGELGUNLMVS8927-18-13 03:22:00 Test Item Value Reference Range Interpretation Comments ALT (test code = ALT) 19 See_Comment [Auto mated message] The system which ge nerated this result transmit perico reference range : <=65. The reference range was not used to interpr et this result as sincere l/abnormal. [facility] CenterRkwfabdTHAAHGLSEPYJ6017-74-16 03:22:00 Test Item Value Reference Range Interpretation Comments Albumin Lvl (test code = Albumin Lvl) 4.3 3.5-5.0 [facility] CenterYfifjatROHUKWSUIIMD0573-46-60 03:22:00 Test Item Value Reference Range Interpretation Comments Alk Phos (test code = Alk Phos) 142 80-406 [facility] CenterEojdufdLBGCNVDCMAXV9222-99-30 03:22:00 Test Item Value Reference Range Interpretation Comments Glucose Lvl (test code = Glucose Lvl) 86 70-99 [facility] HospitalYeiftpkEDCNOMCSKL8483-75-59 03:22:00 Test Item Value Reference Range Interpretation Comments Segs-Bands # (test code = Segs-Bands #) 6.9 1.5-8.1 [facility] HospitalSrvkfmwKWKUBNZLZA7284-88-20 03:22:00 Test Item Value Reference Range Interpretation Comments Lymphocytes # (test code = Lymphocytes 2.3 1.0-5.5 #) [facility] HospitalVdslzpoCHVXWWXEQH9744-88-65 03:22:00 Test Item Value Reference Range Interpretation Comments Monocytes # (test code 0.6 See_Comment [Aut omated message] The = Monocytes #) system which generated this result tra nsmitted reference range : <=0.8. The reference r malcolm was not used to int erpret this result as normal/abnormal . [facility] HospitalIxivfyeVBFDAOJRVO9622-04-90 03:22:00 Test Item Value Reference Range Interpretation Comments Lymphocytes (test code = Lymphocytes) 23.2 20.0-40.0 [facility] HospitalMzdnlljGQJTNECMFC5127-94-72 03:22:00 Test Item Value Reference Range Interpretation Comments Monocytes (test code = Monocytes) 5.9 2.0-12.0 [facility] HospitalFkufkitFAPWBLROGY5764-22-94 03:22:00 Test Item Value Reference Range Interpretation Comments Eosinophils (test code = 0.4 See_Comment [A utomated message] The Eosinophils) system which ge nerated this result tra nsmitted reference range : <=4.0. The reference r malcolm was not used to int erpret this result as normal/abnormal . [facility] HospitalLwyfpetVJKDGQPGOS2285-50-13 03:22:00 Test Item Value Reference Range Interpretation Comments Basophils (test code = 0.4 See_Comment [Aut omated message] The Basophils) system which ge nerated this result tra nsmitted reference range : <=1.0. The reference r malcolm was not used to int erpret this result as normal/abnormal . [facility] HospitalAleipqwONFXWMWUTC0534-60-39 03:22:00 Test Item Value Reference Range Interpretation Comments Segs (test code = Segs) 70.1 34.0-64.0 [facility] HospitalLwonihaNJHDKPNENP1149-20-11 03:22:00 Test Item Value Reference Range Interpretation Comments PTT (test code = PTT) 28.1 s 22.9-35.8 [facility] HospitalJhjsdheUQFZMGWHRX1861-11-30 03:22:00 Test Item Value Reference Range Interpretation Comments INR (test code = INR) 1.02 0.85-1.17 [facility] HospitalOxviehkJDGYYYYLCA8539-34-34 03:22:00 Test Item Value Reference Range Interpretation Comments PT (test code = PT) 13.4 s 12.0-14.7 [facility] HospitalRrtddztJLYTFFLRLN0370-26-52 03:22:00 Test Item Value Reference Range Interpretation Comments Hgb (test code = Hgb) 13.6 12.0-16.0 [facility] HospitalPdgobutEXNVINHQVD7840-83-82 03:22:00 Test Item Value Reference Range Interpretation Comments Hct (test code = Hct) 40.5 36.0-48.0 [facility] HospitalWklkcgxOHDNAKXRRJ2526-51-76 03:22:00 Test Item Value Reference Range Interpretation Comments RBC (test code = RBC) 4.51 4.20-5.40 [facility] HospitalTorerguGBSKLIOCHW2864-18-20 03:22:00 Test Item Value Reference Range Interpretation Comments MCV (test code = MCV) 89.7 80.0-98.0 [facility] HospitalTuxdmpzKSFAHMRIQS7338-74-10 03:22:00 Test Item Value Reference Range Interpretation Comments WBC (test code = WBC) 9.8 3.7-10.4 [facility] HospitalIgsnevtWEVCZDLNWS4563-90-74 03:22:00 Test Item Value Reference Range Interpretation Comments Platelet (test code = Platelet) 178 133-450 [facility] HospitalIjlqlmxEVDBWXYXKJ7521-36-20 03:22:00 Test Item Value Reference Range Interpretation Comments MPV (test code = MPV) 9.1 7.4-10.4 [facility] HospitalDxujmrcXRJGEEAOGZ5011-22-37 03:22:00 Test Item Value Reference Range Interpretation Comments MCHC (test code = MCHC) 33.5 32.0-36.0 [facility] HospitalMuhnuyhJRNURGGSKT6557-98-37 03:22:00 Test Item Value Reference Range Interpretation Comments RDW (test code = RDW) 11.7 11.5-14.5 [facility] HospitalUqzpfraWHBCIAXIGB7839-55-39 03:22:00 Test Item Value Reference Range Interpretation Comments MCH (test code = MCH) 30.1 pg 27.0-31.0 [facility] AND YQVYK8459-84-33 03:22:00 Test Item Value Reference Range Interpretation Comments UA Turbidity (test code Slight Cloudy (06/17/15 = UA Turbidity) 10:22 PM) [facility] AND [id number] 03:22:00 Test Item Value Reference Range Interpretation Comments UA Spec Grav (test code = UA Spec 1.020 1 Grav) [facility] AND [id number] 03:22:00 Test Item Value Reference Range Interpretation Comments UA Urobilinogen (test code = UA 1.0 0.1-1.0 Urobilinogen) [facility] AND [id number] 03:22:00 Test Item Value Reference Range Interpretation Comments UA Nitrite (test code Negative (06/17/15 10:22 = UA Nitrite) PM) [facility] AND [id number] 03:22:00 Test Item Value Reference Range Interpretation Comments UA Blood (test code = Negative (06/17/15 10:22 UA Blood) PM) [facility] AND [id number] 03:22:00 Test Item Value Reference Range Interpretation Comments UA Protein (test code Negative (06/17/15 10:22 = UA Protein) PM) [facility] AND [id number] 03:22:00 Test Item Value Reference Range Interpretation Comments UA pH (test code = UA pH) 7.0 1 5.0-8.0 [facility] AND [id number] 03:22:00 Test Item Value Reference Range Interpretation Comments UA Ketones (test code = Trace *ABN*(06/17/15 UA Ketones) 10:22 PM) [facility] AND [id number] 03:22:00 Test Item Value Reference Range Interpretation Comments UA Bili (test code = Negative *NA*(06/17/15 UA Bili) 10:22 PM) [facility] AND [id number] 03:22:00 Test Item Value Reference Range Interpretation Comments UA Glucose (test code Negative (06/17/15 10:22 = UA Glucose) PM) [facility] [id number] 03:22:00 Test Item Value Reference Range Interpretation Comments UA Color (test code = Yellow *NA*(06/17/15 UA Color) 10:22 PM) [facility] AND [id number] 03:22:00 Test Item Value Reference Range Interpretation Comments UA RBC (test code = 0-2 /HPF See_Comment [Automa perico message] The UA RBC) system which ge nerated this result tra nsmitted reference range : <=2. The reference range was not used to interpr et this result as sincere l/abnormal. [facility] [id number] 03:22:00 Test Item Value Reference Range Interpretation Comments UA Bacteria (test code = UA Moderate /HPF Bacteria) [facility] [id number] 03:22:00 Test Item Value Reference Range Interpretation Comments UA Sq Epi (test code = UA Sq Epi) Few /LPF [facility] AND [id number] 03:22:00 Test Item Value Reference Range Interpretation Comments UA Leuk Est (test code Trace *ABN*(06/17/15 = UA Leuk Est) 10:22 PM) [facility] AND [id number] 03:22:00 Test Item Value Reference Range Interpretation Comments UA WBC (test code = UA WBC) 0-2 /HPF [facility] [id number] 03:22:00 Test Item Value Reference Range Interpretation Comments U Preg (test code = U Negative (06/17/15 10:22 Preg) PM) [facility] [id number] 03:22:00 Test Item Value Reference Range Interpretation Comments Lipase Lvl (test code = Lipase Lvl) 118 73-393 [facility]GfbyqthIXVXXQWFOWHT3291-91-34 03:22:00 Test Item Value Reference Range Interpretation Comments AGAP (test code = AGAP) 12.6 10.0-20.0 [facility]HvmsgcjEMGXAAMKNURV9403-99-35 03:22:00 Test Item Value Reference Range Interpretation Comments A/G Ratio (test code = A/G Ratio) 1.2 0.7-1.6 [facility]LezxadfUHRXAHNYPHVP4679-14-23 03:22:00 Test Item Value Reference Range Interpretation Comments Globulin (test code = Globulin) 3.7 2.0-4.0 [facility] CenterWrubmgwTJQUTWMNRDVD6886-31-06 03:22:00 Test Item Value Reference Range Interpretation Comments B/C Ratio (test code = B/C Ratio) 20 6-25 [facility] CenterUoicrurFMNTOWFTSBSJ8188-26-90 03:22:00 Test Item Value Reference Range Interpretation Comments eGFR (test code = eGFR) 159 [facility] CenterIxhfkmeOOUHBUPSADCE2832-67-62 03:22:00 Test Item Value Reference Range Interpretation Comments Sodium Lvl (test code = Sodium Lvl) 139 135-145 [facility] CenterEbxvnrvSOVPCBDNZBCM4774-28-35 03:22:00 Test Item Value Reference Range Interpretation Comments Creatinine Lvl (test code = Creatinine 0.4 0.5-1.4 Lvl) [facility] CenterJoxfjdjTQJZEIWKGPSC2479-82-71 03:22:00 Test Item Value Reference Range Interpretation Comments BUN (test code = BUN) 8 7-22 [facility] CenterYjcwnnfXUTKHYQOKRDY4589-18-68 03:22:00 Test Item Value Reference Range Interpretation Comments Chloride Lvl (test code = Chloride Lvl) 105 95-109 [facility] CenterLfqcsmqJCDZIQGPOUVL3663-35-38 03:22:00 Test Item Value Reference Range Interpretation Comments Potassium Lvl (test code = Potassium 3.6 3.5-5.1 Lvl) [facility] CenterTjujghhBYKMSOFVHGOP7541-88-21 03:22:00 Test Item Value Reference Range Interpretation Comments CO2 (test code = CO2) 25 24-32 [facility] CenterNiodnteCYJQLFCMGTML5272-64-26 03:22:00 Test Item Value Reference Range Interpretation Comments Total Protein (test code = Total 8.0 6.4-8.4 Protein) [facility] CenterXixjrdaOCQAIFZONRRO4193-14-87 03:22:00 Test Item Value Reference Range Interpretation Comments Calcium Lvl (test code = Calcium Lvl) 9.4 8.5-10.5 [facility] CenterGjymhinGADJXJZJDQWE2287-97-55 03:22:00 Test Item Value Reference Range Interpretation Comments AST (test code = AST) 17 See_Comment [Auto mated message] The system which ge nerated this result transmit perico reference range : <=37. The reference range was not used to interpr et this result as sincere l/abnormal. [facility] CenterGtewussOQBGAYDFRVQP1061-36-26 03:22:00 Test Item Value Reference Range Interpretation Comments Bili Total (test code = Bili Total) 1.2 0.2-1.3 [facility] CenterKdyvkcwGPGOMLKBQRUH9465-76-49 03:22:00 Test Item Value Reference Range Interpretation Comments ALT (test code = ALT) 19 See_Comment [Auto mated message] The system which ge nerated this result transmit perico reference range : <=65. The reference range was not used to interpr et this result as sincere l/abnormal. [facility] CenterRmnetzqIEVFXFKRCQTW4521-49-81 03:22:00 Test Item Value Reference Range Interpretation Comments Albumin Lvl (test code = Albumin Lvl) 4.3 3.5-5.0 [facility] CenterIrfakclLXCFDYGFBUYE8397-11-96 03:22:00 Test Item Value Reference Range Interpretation Comments Alk Phos (test code = Alk Phos) 142 80-406 [facility] CenterBzpnyynABWBBZCXWQVC6131-22-63 03:22:00 Test Item Value Reference Range Interpretation Comments Glucose Lvl (test code = Glucose Lvl) 86 70-99 [facility]NrqoveaZQYSVDLXPM6757-93-56 03:22:00 Test Item Value Reference Range Interpretation Comments Segs-Bands # (test code = Segs-Bands #) 6.9 1.5-8.1 [facility] HospitalHncrhhqSKIORARJUE5379-31-00 03:22:00 Test Item Value Reference Range Interpretation Comments Lymphocytes # (test code = Lymphocytes 2.3 1.0-5.5 #) [facility] HospitalDqqtbfwSWCXIGHOHW6225-41-17 03:22:00 Test Item Value Reference Range Interpretation Comments Monocytes # (test code 0.6 See_Comment [Aut omated message] The = Monocytes #) system which generated this result tra nsmitted reference range : <=0.8. The reference r malcolm was not used to int erpret this result as normal/abnormal . [facility] HospitalEfrvkmxBLLYNCDGMG9535-80-43 03:22:00 Test Item Value Reference Range Interpretation Comments Lymphocytes (test code = Lymphocytes) 23.2 20.0-40.0 [facility] HospitalBigswqdGSWTKZNHJY7290-21-74 03:22:00 Test Item Value Reference Range Interpretation Comments Monocytes (test code = Monocytes) 5.9 2.0-12.0 [facility] HospitalQmrcyidIZZVCTLLJO9667-70-45 03:22:00 Test Item Value Reference Range Interpretation Comments Eosinophils (test code = 0.4 See_Comment [A utomated message] The Eosinophils) system which ge nerated this result tra nsmitted reference range : <=4.0. The reference r malcolm was not used to int erpret this result as normal/abnormal . [facility] HospitalAaqbbmkQMBBYIGVAV1534-10-99 03:22:00 Test Item Value Reference Range Interpretation Comments Basophils (test code = 0.4 See_Comment [Aut omated message] The Basophils) system which ge nerated this result tra nsmitted reference range : <=1.0. The reference r malcolm was not used to int erpret this result as normal/abnormal . [facility] HospitalSjaijtjJFJQLUKYGF2044-16-97 03:22:00 Test Item Value Reference Range Interpretation Comments Segs (test code = Segs) 70.1 34.0-64.0 [facility] HospitalQjnukcqNAETDZCLTU3915-37-04 03:22:00 Test Item Value Reference Range Interpretation Comments PTT (test code = PTT) 28.1 s 22.9-35.8 [facility] HospitalVetwyezVODBDQESGJ7860-09-39 03:22:00 Test Item Value Reference Range Interpretation Comments INR (test code = INR) 1.02 0.85-1.17 [facility] HospitalBrnpragNJHJTIITQI3120-54-43 03:22:00 Test Item Value Reference Range Interpretation Comments PT (test code = PT) 13.4 s 12.0-14.7 [facility] HospitalAzywygaUNLHWMJKOG8292-04-21 03:22:00 Test Item Value Reference Range Interpretation Comments Hgb (test code = Hgb) 13.6 12.0-16.0 [facility] HospitalLlxiapqCBMHGVXXMX9497-75-58 03:22:00 Test Item Value Reference Range Interpretation Comments Hct (test code = Hct) 40.5 36.0-48.0 [facility] HospitalDnfiecmQKINHAWMDR7443-70-20 03:22:00 Test Item Value Reference Range Interpretation Comments RBC (test code = RBC) 4.51 4.20-5.40 [facility] HospitalMweatlfPGJLIGNHDA7776-18-72 03:22:00 Test Item Value Reference Range Interpretation Comments MCV (test code = MCV) 89.7 80.0-98.0 [facility] HospitalIqnmyhcUAQLZDWAJD1175-78-15 03:22:00 Test Item Value Reference Range Interpretation Comments WBC (test code = WBC) 9.8 3.7-10.4 [facility] HospitalKcfoojnRBOVZUIWWA3577-25-45 03:22:00 Test Item Value Reference Range Interpretation Comments Platelet (test code = Platelet) 178 133-450 [facility] HospitalNjgmmkjLZRRHZITJZ8127-97-21 03:22:00 Test Item Value Reference Range Interpretation Comments MPV (test code = MPV) 9.1 7.4-10.4 [facility] HospitalXixtixjJTFQOSNMUQ2493-86-17 03:22:00 Test Item Value Reference Range Interpretation Comments MCHC (test code = MCHC) 33.5 32.0-36.0 [facility] HospitalLfndjekCEIGJEOFEA2186-68-21 03:22:00 Test Item Value Reference Range Interpretation Comments RDW (test code = RDW) 11.7 11.5-14.5 [facility] HospitalYxnfsucMHGZJMTZEW8389-04-32 03:22:00 Test Item Value Reference Range Interpretation Comments MCH (test code = MCH) 30.1 pg 27.0-31.0 [facility] AND [id number] 03:22:00 Test Item Value Reference Range Interpretation Comments UA Turbidity (test code Slight Cloudy (06/17/15 = UA Turbidity) 10:22 PM) [facility] AND [id number] 03:22:00 Test Item Value Reference Range Interpretation Comments UA Spec Grav (test code = UA Spec 1.020 1 Grav) [facility] AND [id number] 03:22:00 Test Item Value Reference Range Interpretation Comments UA Urobilinogen (test code = UA 1.0 0.1-1.0 Urobilinogen) [facility] AND [id number] 03:22:00 Test Item Value Reference Range Interpretation Comments UA Nitrite (test code Negative (06/17/15 10:22 = UA Nitrite) PM) [facility] AND [id number] 03:22:00 Test Item Value Reference Range Interpretation Comments UA Blood (test code = Negative (06/17/15 10:22 UA Blood) PM) [facility] AND [id number] 03:22:00 Test Item Value Reference Range Interpretation Comments UA Protein (test code Negative (06/17/15 10:22 = UA Protein) PM) [facility] AND [id number] 03:22:00 Test Item Value Reference Range Interpretation Comments UA pH (test code = UA pH) 7.0 1 5.0-8.0 [facility] AND [id number] 03:22:00 Test Item Value Reference Range Interpretation Comments UA Ketones (test code = Trace *ABN*(06/17/15 UA Ketones) 10:22 PM) [facility] AND [id number] 03:22:00 Test Item Value Reference Range Interpretation Comments UA Bili (test code = Negative *NA*(06/17/15 UA Bili) 10:22 PM) [facility] AND [id number] 03:22:00 Test Item Value Reference Range Interpretation Comments UA Glucose (test code Negative (06/17/15 10:22 = UA Glucose) PM) [facility] AND [id number] 03:22:00 Test Item Value Reference Range Interpretation Comments UA Color (test code = Yellow *NA*(06/17/15 UA Color) 10:22 PM) [facility] AND [id number] 03:22:00 Test Item Value Reference Range Interpretation Comments UA RBC (test code = 0-2 /HPF See_Comment [Automa perico message] The UA RBC) system which ge nerated this result tra nsmitted reference range : <=2. The reference range was not used to interpr et this result as sincere l/abnormal. [facility] AND [id number] 03:22:00 Test Item Value Reference Range Interpretation Comments UA Bacteria (test code = UA Moderate /HPF Bacteria) [facility] AND [id number] 03:22:00 Test Item Value Reference Range Interpretation Comments UA Sq Epi (test code = UA Sq Epi) Few /LPF [facility] AND [id number] 03:22:00 Test Item Value Reference Range Interpretation Comments UA Leuk Est (test code Trace *ABN*(06/17/15 = UA Leuk Est) 10:22 PM) [facility] AND [id number] 03:22:00 Test Item Value Reference Range Interpretation Comments UA WBC (test code = UA WBC) 0-2 /HPF [facility] [id number] 03:22:00 Test Item Value Reference Range Interpretation Comments U Preg (test code = U Negative (06/17/15 10:22 Preg) PM) [facility]CHE[facility] [id number] 03:22:00 Test Item Value Reference Range Interpretation Comments Lipase Lvl (test code = Lipase Lvl) 118 73-393 [facility]kinJesqejrJJESWERETEDA6879-10-30 03:22:00 Test Item Value Reference Range Interpretation Comments AGAP (test code = AGAP) 12.6 10.0-20.0 [facility] CenterEwmnfdxLWOJXJYKRIWO3308-46-10 03:22:00 Test Item Value Reference Range Interpretation Comments A/G Ratio (test code = A/G Ratio) 1.2 0.7-1.6 [facility] CenterRcbutemQIQNMNENPRJF1249-60-45 03:22:00 Test Item Value Reference Range Interpretation Comments Globulin (test code = Globulin) 3.7 2.0-4.0 [facility] CenterRizjzcaJHEWBHOMNPKV0091-96-91 03:22:00 Test Item Value Reference Range Interpretation Comments B/C Ratio (test code = B/C Ratio) 20 6-25 [facility] AllianceSugotjqLXABRSUCYBLI1125-44-76 03:22:00 Test Item Value Reference Range Interpretation Comments eGFR (test code = eGFR) 159 [facility] CenterGyvjpqsNXGOUBNFMPDV1447-78-08 03:22:00 Test Item Value Reference Range Interpretation Comments Sodium Lvl (test code = Sodium Lvl) 139 135-145 [facility] CenterTdooictNAAJDZSCVFLZ9455-87-75 03:22:00 Test Item Value Reference Range Interpretation Comments Creatinine Lvl (test code = Creatinine 0.4 0.5-1.4 Lvl) [facility] CenterAtbvxcwITYUBLWFJPQH5310-75-62 03:22:00 Test Item Value Reference Range Interpretation Comments BUN (test code = BUN) 8 7-22 [facility]kinSpnminhICFXEITPYBHA5638-52-94 03:22:00 Test Item Value Reference Range Interpretation Comments Chloride Lvl (test code = Chloride Lvl) 105 95-109 [facility] CenterMxxwfatHBGMDHYYQLSB8702-27-53 03:22:00 Test Item Value Reference Range Interpretation Comments Potassium Lvl (test code = Potassium 3.6 3.5-5.1 Lvl) [facility] CenterNwdmmurMEIWFRZDCCIB3176-92-97 03:22:00 Test Item Value Reference Range Interpretation Comments CO2 (test code = CO2) 25 24-32 [facility] CenterGbrffihFULKZDTSJJQD9213-88-79 03:22:00 Test Item Value Reference Range Interpretation Comments Total Protein (test code = Total 8.0 6.4-8.4 Protein) [facility] CenterZnynvjpDDNFQMRHPCIX6193-78-79 03:22:00 Test Item Value Reference Range Interpretation Comments Calcium Lvl (test code = Calcium Lvl) 9.4 8.5-10.5 [facility] CenterJdrnwotSKMPDVYJBYFN9616-58-80 03:22:00 Test Item Value Reference Range Interpretation Comments AST (test code = AST) 17 <=37 [facility] CenterWbiottdEBOWJEBXEVCK0801-70-04 03:22:00 Test Item Value Reference Range Interpretation Comments Bili Total (test code = Bili Total) 1.2 0.2-1.3 [facility] CenterQsaybrqJXXXUSOENKXK7730-85-05 03:22:00 Test Item Value Reference Range Interpretation Comments ALT (test code = ALT) 19 <=65 [facility] CenterZqhmxuwSQPCHPAEAKZU2353-07-79 03:22:00 Test Item Value Reference Range Interpretation Comments Albumin Lvl (test code = Albumin Lvl) 4.3 3.5-5.0 [facility] CenterVteyxvfPLCESWQEMJNQ6094-42-60 03:22:00 Test Item Value Reference Range Interpretation Comments Alk Phos (test code = Alk Phos) 142 80-406 [facility] CenterCfxjzphQXIDBSOKFZKV3832-60-73 03:22:00 Test Item Value Reference Range Interpretation Comments Glucose Lvl (test code = Glucose Lvl) 86 70-99 [facility] HospitalRkqtdxtEJVXKFNDXL4066-84-94 03:22:00 Test Item Value Reference Range Interpretation Comments Segs-Bands # (test code = Segs-Bands #) 6.9 1.5-8.1 [facility] HospitalTbxxefuDYOUGSESWG1441-37-50 03:22:00 Test Item Value Reference Range Interpretation Comments Lymphocytes # (test code = Lymphocytes 2.3 1.0-5.5 #) [facility] HospitalIbhkubpCESLRONNXO4338-96-41 03:22:00 Test Item Value Reference Range Interpretation Comments Monocytes # (test code = Monocytes #) 0.6 <=0.8 [facility] HospitalVzsqzhjPGKXUQYMVF5564-85-06 03:22:00 Test Item Value Reference Range Interpretation Comments Lymphocytes (test code = Lymphocytes) 23.2 20.0-40.0 [facility] HospitalWkhkljmVVFMBDFTNO2671-66-41 03:22:00 Test Item Value Reference Range Interpretation Comments Monocytes (test code = Monocytes) 5.9 2.0-12.0 [facility] HospitalGvrkngcACOSYQCYQU0793-12-42 03:22:00 Test Item Value Reference Range Interpretation Comments Eosinophils (test code = Eosinophils) 0.4 <=4.0 [facility] HospitalAzmfsyoZDOYREQSCH5864-12-60 03:22:00 Test Item Value Reference Range Interpretation Comments Basophils (test code = Basophils) 0.4 <=1.0 [facility] HospitalPbuomtbTFROBHIGQK7587-01-57 03:22:00 Test Item Value Reference Range Interpretation Comments Segs (test code = Segs) 70.1 34.0-64.0 [facility] HospitalWuvuvlpDZLZLBHRHB5071-89-38 03:22:00 Test Item Value Reference Range Interpretation Comments PTT (test code = PTT) 28.1 s 22.9-35.8 [facility] HospitalAdhxmulXUXGIWLWJH9370-84-18 03:22:00 Test Item Value Reference Range Interpretation Comments INR (test code = INR) 1.02 0.85-1.17 [facility] HospitalAzxpzkmMFZHKATNRT3922-16-61 03:22:00 Test Item Value Reference Range Interpretation Comments PT (test code = PT) 13.4 s 12.0-14.7 [facility] HospitalIaahwgpOLXJODCSKP9048-58-18 03:22:00 Test Item Value Reference Range Interpretation Comments Hgb (test code = Hgb) 13.6 12.0-16.0 [facility] HospitalEzlizesUFFMLNGAGS7531-51-64 03:22:00 Test Item Value Reference Range Interpretation Comments Hct (test code = Hct) 40.5 36.0-48.0 [facility] HospitalUhdwcrbUDZLQOZFLV6468-79-20 03:22:00 Test Item Value Reference Range Interpretation Comments RBC (test code = RBC) 4.51 4.20-5.40 [facility] HospitalWaaoxriEAFIGZTUCY8454-16-95 03:22:00 Test Item Value Reference Range Interpretation Comments MCV (test code = MCV) 89.7 80.0-98.0 [facility] HospitalXubrgrmRFFMUQGXZG3639-26-87 03:22:00 Test Item Value Reference Range Interpretation Comments WBC (test code = WBC) 9.8 3.7-10.4 [facility] HospitalZiqmaidAJAZGSBBIQ3132-36-04 03:22:00 Test Item Value Reference Range Interpretation Comments Platelet (test code = Platelet) 178 133-450 [facility] HospitalOgkhelgRRCPHGGDMF3183-24-40 03:22:00 Test Item Value Reference Range Interpretation Comments MPV (test code = MPV) 9.1 7.4-10.4 [facility] HospitalVubxglxLFEBPSRAPK0730-61-88 03:22:00 Test Item Value Reference Range Interpretation Comments MCHC (test code = MCHC) 33.5 32.0-36.0 [facility] HospitalQdycbitDNWWLZRGEV5449-33-24 03:22:00 Test Item Value Reference Range Interpretation Comments RDW (test code = RDW) 11.7 11.5-14.5 [facility] HospitalMzjqbbuWZXLEVQKAS7166-91-50 03:22:00 Test Item Value Reference Range Interpretation Comments MCH (test code = MCH) 30.1 pg 27.0-31.0 [facility] AND [id number] 03:22:00 Test Item Value Reference Range Interpretation Comments UA Turbidity (test code Slight Cloudy (06/17/15 = UA Turbidity) 10:22 PM) [facility] AND [id number] 03:22:00 Test Item Value Reference Range Interpretation Comments UA Spec Grav (test code = UA Spec 1.020 1 Grav) [facility] AND [id number] 03:22:00 Test Item Value Reference Range Interpretation Comments UA Urobilinogen (test code = UA 1.0 0.1-1.0 Urobilinogen) [facility] AND [id number] 03:22:00 Test Item Value Reference Range Interpretation Comments UA Nitrite (test code Negative (06/17/15 10:22 = UA Nitrite) PM) [facility] AND [id number] 03:22:00 Test Item Value Reference Range Interpretation Comments UA Blood (test code = Negative (06/17/15 10:22 UA Blood) PM) [facility] AND [id number] 03:22:00 Test Item Value Reference Range Interpretation Comments UA Protein (test code Negative (06/17/15 10:22 = UA Protein) PM) [facility] AND [id number] 03:22:00 Test Item Value Reference Range Interpretation Comments UA pH (test code = UA pH) 7.0 1 5.0-8.0 [facility] [id number] 03:22:00 Test Item Value Reference Range Interpretation Comments UA Ketones (test code = Trace *ABN*(06/17/15 UA Ketones) 10:22 PM) [facility] [id number] 03:22:00 Test Item Value Reference Range Interpretation Comments UA Bili (test code = Negative *NA*(06/17/15 UA Bili) 10:22 PM) [facility] [id number] 03:22:00 Test Item Value Reference Range Interpretation Comments UA Glucose (test code Negative (06/17/15 10:22 = UA Glucose) PM) [facility] [id number] 03:22:00 Test Item Value Reference Range Interpretation Comments UA Color (test code = Yellow *NA*(06/17/15 UA Color) 10:22 PM) [facility] [id number] 03:22:00 Test Item Value Reference Range Interpretation Comments UA RBC (test code = UA RBC) 0-2 /HPF <=2 [facility] [id number] 03:22:00 Test Item Value Reference Range Interpretation Comments UA Bacteria (test code = UA Moderate /HPF Bacteria) [facility] [id number] 03:22:00 Test Item Value Reference Range Interpretation Comments UA Sq Epi (test code = UA Sq Epi) Few /LPF [facility] [id number] 03:22:00 Test Item Value Reference Range Interpretation Comments UA Leuk Est (test code Trace *ABN*(06/17/15 = UA Leuk Est) 10:22 PM) [facility] [id number] 03:22:00 Test Item Value Reference Range Interpretation Comments UA WBC (test code = UA WBC) 0-2 /HPF [facility] [id number] 03:22:00 Test Item Value Reference Range Interpretation Comments U Preg (test code = U Negative (06/17/15 10:22 Preg) PM) [facility]
[2023-09-02 14:23] LABS: Absolute Lymphocytes (CBC) 1.1 K/uL (0.7-4.9); Hematocrit 35.4 % (36.0-45.0); Lymphocytes % 11.5 % (15.3-44.8); MCV 87.7 fL (80-100); MPV 9.2 fL (7.6-11.3); Platelets 170 thou/uL (152-406); RBC Red Blood Cell Count 4.04 M/uL (3.86-4.86)
[2023-09-02] MEDS ORDERED: PROMETHAZINE INJ 25 MG/ML AMP ONE (14:34)
[2023-09-02] MEDS ORDERED: NA CHLORIDE 0.9% 1,000 ML ONE (14:34)
[2023-09-02 14:41] LABS: Albumin 2.8 g/dL (3.4-5.0); Bilirubin Total 0.7 mg/dL (0.2-1.0); Potassium 3.4 mEq/L (3.5-5.1); Protein, Total 7.3 g/dL (6.4-8.2)
[2023-09-02 14:57] LABS: Specific Gravity > 1.030 (1.005-1.030); Urine Bacteria <20 /HPF (<20); Urine Bilirubin NEGATIVE (Negative); Urine Blood Negative (Negative); Urine Clarity Extremely Turbid (Clear); Urine Color Yellow (Yellow); Urine Crystals Unidentified Few /HPF (None Seen); Urine Glucose NEGATIVE (Negative); Urine Mucus 3+ /HPF (None Seen); Urine Protein 1+ (Negative); Urine Urobilinogen 3+ (Normal); Urine WBC Clump Occasional /HPF (None Seen)
--- NOTE | 2023-09-02 15:17 | EDPHYS ---
Physician Documentation [facility] Name: Janneth Issa Age: 23 yrs Sex: Female : 2000 Arrival Date: 09/02/2023 Time: 13:50 Bed 16 Private MD: ED Physician Shade Beauchamp HPI: 09/02 14:05 This 23 yrs old Female presents to ER via Ambulatory with complaints of jh7 Nausea/Vomiting, 23 Wks preg. 14:05 The patient presents to the emergency department with nausea, vomiting. Onset: The jh7 symptoms/episode began/occurred 3 day(s) ago. Possible causes: . Associated signs and symptoms: Pertinent negatives: abdominal pain, constipation, diarrhea, dysuria, fever. History of hyperemesis gravidarum. 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 - Social history:: Smoking status: Patient denies any tobacco usage or history of. ROS: 14:05 Constitutional: Negative for fever, chills, and weight loss, Eyes: Negative for injury, jh7 pain, redness, and discharge, Neck: Negative for injury, pain, and swelling, Cardiovascular: Negative for chest pain, palpitations, and edema, Respiratory: Negative for shortness of breath, cough, wheezing, and pleuritic chest pain, Back: Negative for injury and pain, MS/Extremity: Negative for injury and deformity, Skin: Negative for injury, rash, and discoloration, Neuro: Negative for headache, weakness, numbness, tingling, and seizure, 14:05 Abdomen/GI: Positive for nausea and vomiting, Negative for abdominal pain, diarrhea, constipation, 14:05 All other systems are negative, Exam: 14:05 Constitutional: This is a well developed, well nourished patient who is awake, alert, jh7 and in no acute distress. Head/Face: Normocephalic, atraumatic. Neck: Trachea midline, no thyromegaly or masses palpated, and no cervical lymphadenopathy. Supple, full range of motion without nuchal rigidity, or vertebral point tenderness. No Meningismus. Cardiovascular: Regular rate and rhythm with a normal S1 and S2. No gallops, murmurs, or rubs. Normal PMI, no JVD. No pulse deficits. Respiratory: Lungs have equal breath sounds bilaterally, clear to auscultation and percussion. No rales, rhonchi or wheezes noted. No increased work of breathing, no retractions or nasal flaring. Back: No spinal tenderness. No costovertebral tenderness. Full range of motion. Skin: Warm, dry with normal turgor. Normal color with no rashes, no lesions, and no evidence of cellulitis. MS/ Extremity: Pulses equal, no cyanosis. Neurovascular intact. Full, normal range of motion. Neuro: Awake and alert, GCS 15, oriented to person, place, time, and situation. Motor strength 5/5 in all extremities. Sensory grossly intact. Normal gait. 14:05 Abdomen/GI: Inspection: abdomen appears normal, Bowel sounds: normal, Palpation: abdomen is soft and non-tender, soft, Vital Signs: 14:05 BP 131 / 79; Pulse 96; Resp 18; Temp 98.3; Pulse Ox 99% ; Weight 112.04 kg; Height 5 ll1 ft. 4 in. ; Pain 0/10; 14:48 BP 108 / 54; Pulse 91; Resp 18; Pulse Ox 98% on R/A; ph 14:05 Body Mass Index 42.40 (112.04 kg, 162.56 cm) ll1 14:05 Pain Scale: Adult ll1 MDM: 13:56 Patient medically screened. [facility] 15:05 Differential diagnosis: Nausea \T\ Vomiting in . Data reviewed: vital signs, [facility] nurses notes, lab test result(s). I considered the following discharge prescriptions or medication management in the emergency department Medications were administered in the Emergency Department. See MAR. Counseling: I had a detailed discussion with the patient and/or guardian regarding the historical points, exam findings, and any diagnostic results supporting the discharge/admit diagnosis, the need for outpatient follow up, an OB/Gyne specialist, to return to the emergency department if symptoms worsen or persist or if there are any questions or concerns that arise at home. Response to treatment: the patient's symptoms have markedly improved after treatment. 09/02 14:04 Order name: CBC with Diff; Complete Time: 15:02 [facility] 09/02 14:04 Order name: CMP; Complete Time: 15:02 [facility] 09/02 14:04 Order name: Lipase; Complete Time: 15:02 [facility] 09/02 14:04 Order name: Urinalysis w/ reflexes; Complete Time: 15:02 [facility] 09/02 14:04 Order name: IV Saline Lock; Complete Time: 14:22 [facility] 09/02 14:04 Order name: Labs collected and sent; Complete Time: 14:22 [facility] 09/02 14:04 Order name: FHT's; Complete Time: 14:39 7 Administered Medications: 14:39 Drug: NS 0.9% IV 1000 ml IV at 1 bolus Per protocol; 1000 mL bolus Route: IV; Rate: 1 ph bolus; Site: right antecubital; 15:43 Follow up: Response: No adverse reaction; IV Status: Completed infusion; IV Intake: ph 1000ml 14:39 Drug: Promethazine IVP 12.5 mg IVP once Route: IVP; Site: right antecubital; ph 15:26 Follow up: Response: No adverse reaction; Nausea is decreased ph Disposition: 16:38 Co-signature as Attending Physician, Shade Beauchamp MD I agree with the assessment and kdr plan of care. Disposition Summary: 09/02/23 15:16 Discharge Ordered Notes: Location: [place] [id number] Problem: new [facility] Symptoms: have improved [facility] Condition: Stable [facility] Diagnosis - Nausea with vomiting, unspecified [facility] Followup: [facility] - With: Private Physician - When: 2 - 3 days - Reason: Recheck today's complaints Discharge Instructions: - Discharge Summary Sheet [facility] - Nausea and Vomiting, Adult [facility] Forms: - Medication Reconciliation Form [facility] - Thank You Letter [facility] - Patient Portal Instructions [facility] - Leadership Thank You Letter [facility] Prescriptions: - promethazine 50 mg Rectal suppository - insert 1 suppository RECTAL route every 6 hours As needed; 15 suppository; [facility] Refills: 0, Product Selection Permitted Signatures: Dispatcher [employer] Shade Velazquez MD MD kdr Hall, Patricia, RN RN ph Greg Vizcaino RN RN [facility] Tamara Butler FNP VOCATIONAL HORTICULTURE INSTRUCTOR [facility] Corrections: (The following items were deleted from the chart) 16:53 14:05 Abdomen/GI: Inspection: abdomen appears normal, Bowel sounds: normal, Palpation: jh7 soft, moderate abdominal tenderness, in the left upper quadrant and left lower quadrant, jh7
--- NOTE | 2023-09-02 15:17 | ER ---
Nurse's Notes [facility] Name: Janneth Issa Age: 23 yrs Sex: Female : 2000 Arrival Date: 09/02/2023 Time: 13:50 Bed 16 Private MD: Diagnosis: Nausea with vomiting, unspecified Presentation: 09/02 14:05 Chief complaint: Patient states: N/V/D for 3 days. 23 weeks . Coronavirus ll1 screen: Vaccine status: Patient reports receiving the 2nd dose of the covid vaccine. Client denies travel out of the [place] in the last 14 days. At this time, the client does not indicate any symptoms associated with coronavirus-19. Ebola Screen: Patient denies travel to an Ebola-affected area in the 21 days before illness onset. Initial Sepsis Screen: Does the patient meet any 2 criteria? No. Patient's initial sepsis screen is negative. Does the patient have a suspected source of infection? Yes: Acute abdominal pain. Risk Assessment: Do you want to hurt yourself or someone else? Patient reports no desire to harm self or others. Onset of symptoms was August 31, 2023. 14:05 Method Of Arrival: Ambulatory ll1 14:05 Acuity: PIO 3 ll1 Triage Assessment: 14:06 General: Appears in no apparent distress. Behavior is calm, cooperative, appropriate ll1 for age. Pain: Denies pain. GI: Reports cramping, diarrhea, nausea, vomiting. 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 - Social history:: Smoking status: Patient denies any tobacco usage or history of. Screenin:39 [facility] ED Fall Risk Assessment (Adult) History of falling in the last 3 months, ph including since admission No falls in past 3 months (0 pts) Score/Fall Risk Level 0 - 2 = Low Risk. Abuse screen: Denies threats or abuse. Denies injuries from another. Nutritional screening: No deficits noted. Tuberculosis screening: No symptoms or risk factors identified. Assessment: 14:40 General: Appears in no apparent distress. comfortable, Behavior is calm, cooperative, ph appropriate for age. Pain: Denies pain. Neuro: Level of Consciousness is awake, alert, obeys commands, Oriented to person, place, time, situation. Cardiovascular: Capillary refill < 3 seconds in bilateral fingers Patient's skin is warm and dry. Respiratory: Airway is patent Respiratory effort is even, unlabored. GI: Abdomen is non-distended, Reports nausea, vomiting, Patient currently denies abdominal pain. : No signs and/or symptoms were reported regarding the genitourinary system. Denies cramping vaginal bleeding. Derm: Skin is pink, warm \T\ dry. Vital Signs: 14:05 BP 131 / 79; Pulse 96; Resp 18; Temp 98.3; Pulse Ox 99% ; Weight 112.04 kg; Height 5 ll1 ft. 4 in. ; Pain 0/10; 14:48 BP 108 / 54; Pulse 91; Resp 18; Pulse Ox 98% on R/A; ph 14:05 Body Mass Index 42.40 (112.04 kg, 162.56 cm) ll1 14:05 Pain Scale: Adult ll1 Vitals: 14:39 Heart Tones 136. ph ED Course: 13:53 Patient arrived in ED. ts1 13:56 Tamara Butler FNP is [facility]. jh7 13:56 Shade Beauchamp MD is Attending Physician. jh7 14:04 Nahomy Patel, POPPY is Primary Nurse. ph 14:05 Arm band placed on Patient placed in an exam room, on a stretcher. ll1 14:06 Triage completed. ll1 14:23 Inserted saline lock: 22 gauge in right antecubital area, using aseptic technique. sm8 Blood collected. 14:39 Urinalysis w/ reflexes Sent. ph 14:40 Patient has correct armband on for positive identification. Bed in low position. Call ph light in reach. Side rails up X2. Pulse ox on. NIBP on. Door closed. Noise minimized. 14:49 No provider procedures requiring assistance completed. ph 15:43 IV discontinued, intact, bleeding controlled, No redness/swelling at site. Pressure ph dressing applied. Administered Medications: 14:39 Drug: NS 0.9% IV 1000 ml IV at 1 bolus Per protocol; 1000 mL bolus Route: IV; Rate: 1 ph bolus; Site: right antecubital; 15:43 Follow up: Response: No adverse reaction; IV Status: Completed infusion; IV Intake: ph 1000ml 14:39 Drug: Promethazine IVP 12.5 mg IVP once Route: IVP; Site: right antecubital; ph 15:26 Follow up: Response: No adverse reaction; Nausea is decreased ph Medication: 14:39 VIS not applicable for this client. ph Intake: 15:43 IV: 1000ml; Total: 1000ml. ph Outcome: 15:16 Discharge ordered by MD. cohen 15:43 Discharged to home ambulatory, with significant other, ph 15:43 Condition: good 15:43 Discharge instructions given to patient, Instructed on discharge instructions, follow up and referral plans. medication usage, Demonstrated understanding of instructions, follow-up care, medications, Prescriptions given X 1, 15:43 Patient left the ED. ph Signatures: Nahomy Patel RN RN ph Lewis, Lynsay, RN RN 1 Tamara Butler, SALES AND EVENTS COORDINATOR SALES AND EVENTS COORDINATOR Jasmin Albrecht PAS PAS ts1 Leslie Lemos 8
== END 2023-09-02 15:43 | disposition home or self-care (01) ==
LOC: ER 13:50
DX: O21.9 Vomiting of pregnancy, unspecified (principal); Z3A.23 23 weeks gestation of pregnancy; Z88.0 Allergy status to penicillin; Z88.2 Allergy status to sulfonamides; Z88.3 Allergy status to other anti-infective agents
CPT/HCPCS: 96361; 85025; 81001; 36415; 83690; 80053; 96374; 99284; J2550; J7030